=== PATIENT | male | born 2000 | race Caucasian/White ===

== ENCOUNTER 2024-06-08 06:33 | Outpatient (OUT) | payer BC, SELFPAY ==
[2024-06-08 07:04] LABS: Basophils Absolute Auto 0.1 10^3/uL (0.0-0.1); Basophils Percent Auto 1.2 % (0.2-2.0); Eosinophils Absolute Auto 0.2 10^3/uL (0.0-0.7); Eosinophils Percent Auto 3.1 % (0.9-7.0); Hematocrit 45.3 % (42.0-54.0); Hemoglobin 14.6 g/dL (14.0-18.0); Immature Granulocytes Abs Auto 0.02 10^3/uL (0.00-0.03); Immature Granulocytes Pct Auto 0.3 % (0.0-0.5); Lymphocytes Absolute Auto 2.3 10^3/uL (1.2-3.8); Lymphocytes Percent Auto 32.3 % (20.5-60.0); Mean Corpuscular HGB Conc 32.2 g/dL (29.9-35.2); Mean Corpuscular Volume 89.9 fL (80.0-94.0); Monocytes Absolute Auto 0.4 10^3/uL (0.3-0.8); Monocytes Percent Auto 6.1 % (1.7-12.0); Neutrophils Absolute Auto 4.1 10^3/uL (1.4-6.5); Platelet Count 355 10^3/uL (150-450); Red Blood Count 5.04 10^6/uL (4.70-6.10); White Blood Count 7.2 10^3/uL (4.0-11.0)
[2024-06-08 10:05] LABS: Sodium 138 mmol/L (136-145)
[2024-06-08 10:06] LABS: Alanine Aminotransferase 46 U/L (16-63); Anion Gap 13.5; Aspartate Amino Transferase 27 U/L (15-37); BUN Creatinine Ratio 17.2; Bilirubin Total 0.5 mg/dL (0.2-1.0); Calcium 9.3 mg/dL (8.5-10.1); Carbon Dioxide 28.7 mmol/L (21.0-32.0); Chloride 100 mmol/L (98-107); Estimated GFR (African America >60 (>=60); Estimated GFR (Non-African Ame >60 (>=60); Glucose 121 mg/dL (74-106); Potassium 4.2 mmol/L (3.5-5.1)
[2024-06-08 10:07] LABS: Albumin Globulin Ratio 0.9; Albumin Level 3.6 g/dL (3.4-5.0); Alkaline Phosphatase 86 U/L (46-116); Cholesterol 147 mg/dL (<=200); Globulin 4.1 g/dL; HDL Cholesterol 38 mg/dL (40-60); Total Protein 7.7 g/dL (6.4-8.2); Triglycerides 215 mg/dL (<=150)
[2024-06-08 10:08] LABS: Chol HDL Ratio 3.9; Thyroid Stimulating Hormone 3.486 uIU/mL (0.358-3.740)
[2024-06-08 11:06] LABS: Estimated Average Glucose 128 mg/dL; Glycohemoglobin A1C 6.1 % (4.5-6.2)
== END 2024-06-08 06:34 | disposition home or self-care (01) ==
LOC: LAB 06:33
PROVIDERS: Family Provider Internal Medicine; PCP Internal Medicine; Visit Provider Internal Medicine
DX: Z00.00 Encounter for general adult medical examination without abnormal findings (principal)
CPT/HCPCS: 36415; 80053; 80061; 83036; 84443; 85025

== ENCOUNTER 2024-07-04 13:30 | Outpatient (OUT) | payer BC, SELFPAY ==
--- OUTSIDE RECORDS SUMMARY | 2024-07-04 13:40 | XMS_ITS | CCD ---
Author Organization [facility] CliniSyla Care Team Providers Care Dish Network Installer Name Role Phone Enzo Vasques Unavailable Unavailable Unavailable [place]IRGIN[place], DR GIRALDO Admitting Unavailable BALL, DR GIRALDO Attending Unavailable BALL, DR GIRALDO Primary Care Unavailable BALL, DR GIRALDO Consulting Unavailable ZIEBER, DR ANTONIO Bailey Consulting Unavailable BALL, DR GIRALDO Admitting Unavailable BALL, DR GIRALDO Attending Unavailable BALL, DR GIRALDO Primary Care Unavailable BALL, DR GIRALDO Admitting Unavailable BALL, DR GIRALDO Attending Unavailable BALL, DR GIRALDO Primary Care Unavailable MISC, DR QUINTANA Admitting Unavailable MISC, DR QUINTANA Attending Unavailable BALL, DR GIRALDO Primary Care Unavailable BALL, DR GIRALDO Consulting Unavailable MISC, DR QUINTANA Consulting Unavailable ZIEBER, DR ANTONIO Bailey Consulting Unavailable BALL, DR GIRALDO Admitting Unavailable BALL, DR GIRALDO Attending Unavailable BALL, DR GIRALDO Primary Care Unavailable BALL, DR GIRALDO Consulting Unavailable ZIEBER, DR ANTONIO Bailey Consulting Unavailable Ball, Enzo Unavailable Dr. Dominick Barbosa Attending Dolly vailable Ball, Dr. Enzo Diallo Primary Care Stephy Barbosa, Dr. Dominick Talavera Attending Dolly vailable Familia, Dr. Dominick Talavera Referring Dolly vailable Virginia, Dr. Enzo Diallo Primary Care Dollyvai labfred Barbosa, Dr. Dominick Talavera Attending Dolly vailable Jeferson Banks, Dr. Yolette Nichols Referring U navailable Virginia, Dr. Enzo Diallo Primary Care Dollyvai labfred Vasques, Dr. Enzo Diallo Primary Care Stephy Barbosa, Dr. Dominick Talavera Attending Dolly vailable Familia, Dr. Dominick Talavera Referring Dolly vailable Familia, Dr. Dominick Talavera Referring Dolly vailable Virginia, Dr. Enzo Diallo Primary Care Stephy Barbosa, Dr. Dominick Talavera Attending Dolly vailable Familia, Dr. Dominick Talavera Attending Dolly vailable Familia, Dr. Dominick Talavera Referring Dolly Vasques, Dr. Enzo Diallo Primary Care Stephy Barbosa, Dr. Dominick Talavera Attending Dolly Barbosa, Dr. Dominick Talavera Admitting Dolly Barbosa, Dr. Dominick Talavera Referring Dolly Vasques, Dr. Enzo Diallo Primary Care Tejginna christofer Vasques DO, Enzo Diallo Primary Care Provider U oksanaaildinah [place] SHER, Enzo Diallo Primary Care Provider Enzo Vasques DO Primary Care Provider Meeson CHEMICAL PATHOLOGIST-MANAGER ROOFING, Cristiana A Unavailable DOMINICK BARBOSA Attending ENZO Pereira Primary Care Unavailable DOMINICK BARBOSA Attending Unavailable ENZO VASQUES Primary Care Unavailable Allergies Allergy Classification Reported Allergen(s) Allergy Type Date of Onset Reaction(s) Facility (8 sources) bee pollen Allergy to substance (finding) -Otolaryngolog -[facility] Work Phone: (1 source) patient allergy list reviewed by nurse or physicia Propensity to adverse reactions 6 Comment:Done Team [facility] Other Medications Current Medications Medication Drug Class(es) Dates Sig (Normalized) Sig (Original) amoxicillin 875 mg / clavulanate 125 mg oral tablet (11 sources) Penicillin-class Antibacterial Start: 01-05-2023 take 1 tablet by mouth every twelve hours Amoxicillin-Pot Clavulanate 875-125 MG 1 tablet Orally every 12 hrs for 7 days Oct, Active Start: 11-26-2021 End: 03-18-2023 take 1 tablet by mouth twice daily Amoxicillin-Pot Clavulanate 875-125 MG Oral Tablet TAKE 1 TABLET TWICE DAILY UNTIL FINISHED. Quantity: 20 Refills: 0 Ordered: 12-Nov-2022 Dominick Barbosa MD Start : 12-Nov-2022 End : 18-Mar-2023 Complete mometasone furoate, bulk, 100 % powder (2 sources) Start: 09-03-2023 mometasone fur oate, bulk, 100 % powder Indications: Other chronic sinusitis Compound 2 mg capsule to be added to sinus rinse twice daily. 180 g 3 09/03/2023 Active nabumetone 750 mg oral tablet (6 sources) Nonsteroidal Anti-inflammatory Drug Start: 06-03-2024 take 750 mg by mouth twice daily Nabumetone Active 750 MG PO Twice daily June 03, 2024 12:00am Start: 06-24-2022 take 1 tablet by edelmira th twice daily at mealtime Nabumetone 750 MG Oral Tablet TAKE 1 TABLET BY MOUTH TWICE A DAY WITH FOOD Quantity: 30 Refills: 0 Ordered: 24-Jun-2022 DO Start : 24-Jun-2022 Complete Completed/Discontinued Medications Medication Drug Class(es) Dates Sig (Normalized) Sig (Original) Acetaminophen (1 source) Tylenol TABS Quantity: 0 Refills: 0 Ordered: 27-May-2023 DO Active cefdinir 300 mg oral capsule (2 sources) Cephalosporin Antibacterial Start: 08-25-2022 take 1 capsule by mouth twice daily Cefdinir 300 MG Oral Capsule TAKE 1 CAPSULE BY MOUTH TWICE A DAY Quantity: 14 Refills: 0 Ordered: 25-Aug-2022 DO Start : 25-Aug-2022 Complete predniSONE 20 mg oral tablet (2 sources) Start: 02-18-2022 predniSONE 20 MG Oral Tablet TAKE 1 TAB THREE TIMES DAILY W/ FOOD X 3 DAYS THEN TWICE A DAY W/ FOOD X 2 DAYS THEN W/ FOOD X 3 DAY Quantity: 18 Refills: 0 Ordered: 18-Feb-2022 DO Start : 18-Feb-2022 Complete sodium chloride 0.111 meq/ml nasal solution (3 sources) Start: 05-15-2023 take 5 spray(s) nasal route four times daily SB Saline Nose 0.65 % Nasal Solution 5 sprays each nostril four times per day Quantity: 1 Refills: 2 Ordered: 15-May-2023 Dominick Barbosa MD Start : 15-May-2023 Active tiZANidine 2 mg oral tablet (2 sources) Central alpha-2 Adrenergic Agonist Start: 06-24-2022 take 1 tablet by mouth once daily at bedtime tiZANidine HCl - 2 MG Oral Tablet TAKE 1 TABLET BY MOUTH EVERYDAY AT BEDTIME Quantity: 15 Refills: 0 Ordered: 24-Jun-2022 DO Start : 24-Jun-2022 Complete traMADol hydrochloride 50 mg oral tablet (2 sources) Opioid Agonist Start: 05-15-2023 take 1 tablet by mouth three times daily as needed traMADol HCl - 50 MG Oral Tablet TAKE 1 TABLET 3 TIMES DAILY NEEDED. Quantity: 25 Refills: 0 Ordered: 15-May-2023 Dominick Barbosa MD Start : 15-May-2023 Active Problems Active Problems Problem Classification Problem Date Documented Date Episodic/Chronic Asthma (3 sources) Asthma without status asthmaticus; Translations: [Asthma, unspecified, unspecified status] Onset: 06-17-2013 Chronic Immunizations and screening for infectious disease (1 source) Contact with and (suspected) exposure to other viral communicable diseases; Translations: [Contact with and (suspected) exposure to COVID-19] Episodic Other and unspecified benign neoplasm (11 sources) Benign neoplasm of nasal cavity; Translations: [Benign neoplasm of nasal cavities, middle ear, and accessory sinuses] Episodic Other and unspecified benign neoplasm (9 sources) Benign neoplasm of middle ear, nasal cavity and accessory sinuses; Translations: [BENIGN DANAE MED EAR NASAL ACC SINUS] Onset: 11-19-2022 Episodic Other and unspecified benign neoplasm (1 source) Benign neoplasm of nose, middle ear and accessory sinuses; Translations: [Benign neoplasm of middle ear, nasal cavity and accessory sinuses] 05-15-2023 Episodic Other circulatory disease (1 source) Elevated blood-pressure reading without diagnosis of hypertension; Translations: [Elevated blood-pressure reading, without diagnosis of hypertension] 06-03-2024 Episodic Other circulatory disease (1 source) Elevated blood-pressure reading, without diagnosis of hypertension; Translations: [Elevated blood pressure reading without diagnosis of hypertension] 06-03-2024 Episodic Other lower respiratory disease (8 sources) H/O: asthma; Translations: [Personal history of other diseases of respiratory system] Episodic Other nervous system disorders (16 sources) H/O: respiratory disease; Translations: [Personal history of other specified diseases] Episodic Other nervous system disorders (3 sources) Postoperative pain ; Translations: [Other acute postoperative pain] Episodic Other nutritional; endocrine; and metabolic disorders (2 sources) Morbid (severe) obesity due to excess calories; Translations: [Morbid (severe) obesity due to excess calories] Onset: 05-12-2023 Chronic Other nutritional; endocrine; and metabolic disorders (2 sources) Body mass index (BMI) 50.0-59.9, adult; Translations: [Body mass index [BMI] 50.0-59.9, adult] Onset: 05-12-2023 Chronic Other nutritional; endocrine; and metabolic disorders (2 sources) Body mass index 40+ - severely obese; Translations: [Body mass index (BMI) 50.0-59.9, adult] Onset: 05-08-2016 Chronic Other nutritional; endocrine; and metabolic disorders (2 sources) Obesity; Translations: [Obesity, unspecified] Onset: 06-17-2013 06-03-2024 Chronic Other nutritional; endocrine; and metabolic disorders (1 source) Morbid obesity; Translations: [Morbid (severe) obesity due to excess calories] Chronic Other nutritional; endocrine; and metabolic disorders (1 source) Obesity, unspecified; Translations: [Obesity, unspecified] 06-03-2024 Chronic Other upper respiratory disease (8 sources) Seasonal allergy; Translations: [Allergic rhinitis, cause unspecified] Chronic Other upper respiratory disease (1 source) Seasonal allergic rhinitis; Translations: [Other seasonal allergic rhinitis] Onset: 03-23-2019 Chronic Other upper respiratory disease (1 source) Allergic rhinitis; Translations: [Allergic rhinitis, unspecified] Onset: 08-09-2015 Chronic Other upper respiratory disease (1 source) Allergic rhinitis due to pollen; Translations: [Allergic rhinitis due to pollen] Chronic Other upper respiratory disease (7 sources) Nasal congestion; Translations: [Other disease of nasal cavity and sinuses] Episodic Other upper respiratory disease (2 sources) Polyp of nasal cavity; Translations: [Polyp of nasal cavity] Onset: 05-13-2019 Episodic Other upper respiratory infections (20 sources) Chronic ethmoidal sinusitis; Translations: [Chronic ethmoidal sinusitis] Onset: 05-15-2023 Chronic Other upper respiratory infections (5 sources) Acute maxillary sinusitis, unspecified; Translations: [Acute pharyngitis] Onset: 11-06-2015 Episodic Residual codes; unclassified (1 source) Obstructive sleep apnea (adult) (pediatric); Translations: [Obstructive sleep apnea (adult) (pediatric)] Onset: 05-12-2023 Chronic Spondylosis; intervertebral disc disorders; other back problems (3 sources) Other intervertebral disc degeneration, lumbosacral region; Translations: [Disorder of lumbar disc] Onset: 03-05-2022 06-03-2024 Chronic Spondylosis; intervertebral disc disorders; other back problems (19 sources) Radiculopathy, lumbar region; Translations: [Intervertebral disc disorders with radiculopathy, lumbar region] Onset: 02-18-2022 Episodic Past or Other Problems Problem Classification Problem Date Documented Da te Episodic/Chronic Abdominal pain (1 source) Abdominal pain; Translations: [Unspecified abdominal pain] Onset: 10-23-2015 Episodic Bacterial infection; unspecified site (1 source) Bacterial infectious disease; Translations: [Bacterial infection, unspecified, in conditions classified elsewhere and of unspecified site] Onset: 04-26-2018 Episodic Other acquired deformities (1 source) Other specified deforming dorsopathies, lumbar region; Translations: [OTH DEFORMING DORSOPATHIES LUMB RGN] Onset: 03-05-2022 Episodic Other and unspecified benign neoplasm (1 source) Benign neoplasm of skin of face; Translations: [Other benign neoplasm of skin of other parts of face] Onset: 10-05-2018 Episodic Other connective tissue disease (1 source) Abnormal posture; Translations: [ABNORMAL POSTURE] Onset: 03-25-2022 Episodic Unclassified (2 sources) Onset: 09-02-2023 09-02-2023 Viral infection (1 source) COVID-19 Results Test Name Value Interpretation Reference Range Facility SURGICAL PATHOLOGY RESULTSon 06-04-2023 Pathology Report Name WALE GREY Pathologist: LUBA JEFFERS DMD. Date of Procedure: 05/15/2023 Date Received: 05/15/2023 Date Reported 06/04/2023 Submitting Physician: DOMINICK BARBOSA MD Location: [facility] Copy To/Referring/Attending: DOMINICK BARBOSA MD Other External # FINAL DIAGNOSIS A. 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 B. 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 at Electronically Signed Out By LUBA JEFFERS DMD./AMT By the signature on this report, the individual or group listed as making the Final Interpretation/Diagnosis certifies that they have reviewed this case. Diagnostic interpretation performed at [facility] [address] [facility]. [facility] [address] Clinical History: Physician Contact Number: [id number] Fixative (A): Saline Fixative (B): Saline Clinical Diagnosis History RIGHT SINONASAL PAPILLOMA Specimens Submitted As: A: RIGHT SINUS CONTENT B: MICRODEBRIDER CONTENTS Gross Description: A: Received in formalin, labeled with the patient's name and hospital number and A, right sinus contents , are multiple, irregular segments of blood, cartilage and soft tissue aggregating to 5.1 x 2.0 x 1.1 cm. The larger fragments are sectioned. The specimen is entirely submitted in 7 cassettes. [facility] B: Received in formalin, labeled with the patient's name and hospital number and B, microdebrider contents , are multiple, irregular segments of blood and soft tissue aggregating to 5.4 x 3.7 x 1.5 cm. Certified Dental Assistant sections are submitted in 8 cassettes [facility] Note: Per the pathologist, the rest of specimen B is submitted in toto in 17 additional cassettes. 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 Please feel free to contact my office by calling [phone] with any questions. Provider Impressions 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 Nasal airway obstruction 3. Throat clearing, coughing, dysphonia 4. Asthma 5. Obstructive sleep apnea on positive pressure 6. Deviated nasal septum Discussion: Wale appeared well on examination today. I asked him to continue using saline rinses and follow-up with me in about 3 to 4 months. He was amenable to this and all questions were answered. His pathology is pending. Although we know his diagnosis, we are looking for is high-grade dysplasia or malignancy. I will reach out to him when his pathology is available. All questions were answered. Chief Complaint 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 Nasal airway obstruction 3. Throat clearing, coughing, dysphonia 4. Asthma 5. Obstructive sleep apnea on positive pressure 6. Deviated nasal septum History of Present Illness Wale presents for his second postoperative evaluation. He is rinsing his nose several times per day. He has been producing intermittent debris. He denies significant nasal bleeding or nasal drainage. His pain has been minimal. 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) Nasal congestion (478.19) (R09.81) Post-operative pain (338.18) (G89.18) Past Medical History History of asthma (V12.69) (Z87.09) History of sleep apnea (V13.89) (Z86.69) History of snoring (V15.89) (Z87.898) History of Seasonal allergies (477.9) (J30.2) Surgical History History of Sinus surgery Family History Family history of Thyroid trouble Family history of diabetes mellitus (V18.0) (Z83.3) Family history of Heart trouble Family history of Anxiety Social History Never a smoker Single Student Allergies No Known Drug Allergies Recorded By: Gina Jean-Baptiste; 09/21/2019 9:13:55 AM Pollen Recorded By: Gina Jean-Baptiste; 09/21/2019 9:13:55 AM Current Meds Medication NameInstruction SB Saline Nose 0.65 % Nasal Solution5 sprays each nostril four times per day Tylenol TABS Physical Exam Nose: On external exam there are neither lesions nor asymmetry of the nasal tip/dorsum. On anterior rhinoscopy, visualization posteriorly is limited on anterior examination. For this reason, to adequately evaluate posteriorly for masses, source of epistaxis, polypoid disease, debridement, and/or signs of infections, nasal endoscopy is indicated. (Please see procedure below.) SINONASAL ENDOSCOPY (CPT 92756): To better evaluate the patient's symptoms, sinonasal endoscopy is indicated. After discussion of risks and benefits, and topical decongestion and anesthesia, an endoscope was used to perform nasal endoscopy on each side. A time out identifying the patient, the procedure, the location of the procedure and any concerns was performed prior to beginning the procedure. Findings: Examination of the right nasal cavity revealed some crusting and scabbing within the nasal cavity itself that was removed with an alligator and suction. The maxillary, ethmoid, sphenoid, and frontal were all patent. There was expected adherent crusting along the ethmoid skull base within the posterior ethmoid cavity and the floor and lateral aspect of the right sphenoid. No pus or polyps was noted. Results/Data His pathology is pending. 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 Please feel free to contact my office by calling [phone] with any questions. Provider Impressions 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 Nasal airway obstruction 3. Throat clearing, coughing, dysphonia 4. Asthma 5. Obstructive sleep apnea on positive pressure 6. Deviated nasal septum Discussion: Wale appeared well on examination today. I asked him to continue using saline rinses and follow-up with me in about 3 to 4 months. He was amenable to this and all questions were answered. His pathology is pending. Although we know his diagnosis, we are looking for is high-grade dysplasia or malignancy. I will reach out to him when his pathology is available. All questions were answered. Chief Complaint 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 Nasal airway obstruction 3. Throat clearing, coughing, dysphonia 4. Asthma 5. Obstructive sleep apnea on positive pressure 6. Deviated nasal septum History of Present Illness Wale presents for his second postoperative evaluation. He is rinsing his nose several times per day. He has been producing intermittent debris. He denies significant nasal bleeding or nasal drainage. His pain has been minimal. 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) Nasal congestion (478.19) (R09.81) Post-operative pain (338.18) (G89.18) Past Medical History History of asthma (V12.69) (Z87.09) History of sleep apnea (V13.89) (Z86.69) History of snoring (V15.89) (Z87.898) History of Seasonal allergies (477.9) (J30.2) Surgical History History of Sinus surgery Family History Family history of Thyroid trouble Family history of diabetes mellitus (V18.0) (Z83.3) Family history of Heart trouble Family history of Anxiety Social History Never a smoker Single Student Allergies No Known Drug Allergies Recorded By: Gina Jean-Baptiste; 09/21/2019 9:13:55 AM Pollen Recorded By: Gina Jean-Baptiste; 09/21/2019 9:13:55 AM Current Meds Medication NameInstruction SB Saline Nose 0.65 % Nasal Solution5 sprays each nostril four times per day Tylenol TABS Vitals Vital Signs Recorded: [id number] 07:57AM Height6 ft [id number] lb 8 oz BMI Zahjgmkyos29.81 kg/m2 BSA Calculated2.89 Tobacco Useb) No Falls Screening (Age 18+)a) No falls within the last year Pain Scale0/10 Physical Exam Nose: On external exam there are neither lesions nor asymmetry of the nasal tip/dorsum. On anterior rhinoscopy, visualization posteriorly is limited on anterior examination. For this reason, to adequately evaluate posteriorly for masses, source of epistaxis, polypoid disease, debridement, and/or signs of infections, nasal endoscopy is indicated. (Please see procedure below.) SINONASAL ENDOSCOPY (CPT 98086): To better evaluate the patient's symptoms, sinonasal endoscopy is indicated. After discussion of risks and benefits, and topical decongestion and anesthesia, an endoscope was used to perform nasal endoscopy on each side. A time out identifying the patient, the procedure, the location of the procedure and any concerns was performed prior to beginning the procedure. Findings: Examination of the right nasal cavity revealed some crusting and scabbing within the nasal cavity itself that was removed with an alligator and suction. The maxillary, ethmoid, sphenoid, and frontal were all patent. There was expected adherent crusting along the ethmoid skull base within the posterior ethmoid cavity and the floor and lateral aspect of the right sphenoid. No pus or polyps was noted. Results/Data His pathology is pending. 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 Please feel free to contact my office by calling [phone] with any questions. Provider Impressions 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 Nasal airway obstruction 3. Throat clearing, coughing, dysphonia 4. Asthma 5. Obstructive sleep apnea on positive pressure 6. Deviated nasal septum Discussion: Wale appeared very well on examination today. I asked him to continue using rinses regularly and follow-up with me in 1 week. He is returning to work next week and we may need to modify the time of his clinic visit so I asked him to reach out to my litigation legal secretary and we discussed some time parameters today. All questions were answered. Chief Complaint 1. 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 Nasal airway obstruction 3. Throat clearing, coughing, dysphonia 4. Asthma 5. Obstructive sleep apnea on positive pressure 6. Deviated nasal septum History of Present Illness Wale presents for his first postoperative visit following right-sided sinus surgery in 05/15/23. Following his surgery he has done well. He has been having some headaches that are controlled with Tylenol. His breathing has been significantly improved. He is rinsing several times per day. He denies significant nasal drainage. 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) Nasal congestion (478.19) (R09.81) Post-operative pain (338.18) (G89.18) Past Medical History History of asthma (V12.69) (Z87.09) History of sleep apnea (V13.89) (Z86.69) History of snoring (V15.89) (Z87.898) History of Seasonal allergies (477.9) (J30.2) Surgical History History of Sinus surgery Family History Family history of Thyroid trouble Family history of diabetes mellitus (V18.0) (Z83.3) Family history of Heart trouble Family history of Anxiety Social History Never a smoker Single Student Allergies No Known Drug Allergies Recorded By: Gina Jean-Baptiste; 09/21/2019 9:13:55 AM Pollen Recorded By: Gina Jean-Baptiste; 09/21/2019 9:13:55 AM Current Meds Medication NameInstruction SB Saline Nose 0.65 % Nasal Solution5 sprays each nostril four times per day traMADol HCl - 50 MG Oral TabletTAKE 1 TABLET 3 TIMES DAILY NEEDED. Vitals Vital Signs Recorded: [id number] 12:20PM Height6 ft Yszjsd344 lb 3.2 oz BMI Dpynrbjcbz85.31 kg/m2 BSA Calculated2.91 Tobacco Useb) No PHQ-2 #1. Over the last 2 weeks have you felt down, depressed or hopeless? (If yes, answer PHQ-9 below)No PHQ-2 #2. Over the last 2 weeks have you felt little interest or pleasure in doing things? (If yes, answer PHQ-9 below)No Falls Screening (Age 18+)a) No falls within the last year Physical Exam Nose: On external exam there are neither lesions nor asymmetry of the nasal tip/dorsum. On anterior rhinoscopy, visualization posteriorly is limited on anterior examination. For this reason, to adequately evaluate posteriorly for masses, source of epistaxis, polypoid disease, debridement, and/or signs of infections, nasal endoscopy is indicated. (Please see procedure below.) SINONASAL ENDOSCOPY (CPT 66712): To better evaluate the patient's symptoms, sinonasal endoscopy is indicated. After discussion of risks and benefits, and topical decongestion and anesthesia,an endoscope was used to perform nasal endoscopy on each side. A time out identifying the patient, the procedure, the location of the procedure and any concerns was performed prior to beginning the procedure. Discussion: Examination of the right nasal cavity revealed some scabbing and crusting between the septum and the lateral wall that was removed. His maxillary, ethmoid, and sphenoid were all widely patent without significant crusting and formal debridement was not performed. There was no evidence of infection. Procedure This note is prepared by Reina Irvin acting as Dominick Barbosa MD. All medical record entries made by the Scribe were at my direction and personally dictated by me. I have reviewed the chart and agree that the record accurately reflects my personal performance of the history, physical exam, assessment, plan, and diagnosis. I have also personally directed, reviewed, and agree with the discharge instructions. Dominick Barbosa MD. 'Scores and Scales' Signatures Electronically signed by : oDminick Barbosa MD; May 20 2023 1:59PM EST (Author) Normal [facility] Tobacco Screening.on 023 Adult depression screening assessment No [facility] Work Phone: Fall risk assessment a) No falls within the last year -[facility] 4244 Work Phone: Tobacco use status CPHS b) No [facility] 4100 Work Phone: No Panel Informationon 05-15 [facility] 4100 Work Phone: Order Reconciliationon 05-15 Order Reconciliation Page 1 Discharge Reconciliation Document Reconciliation Type: Discharge requested on behalf of Dominick Barbosa (Physician) done by Dominick Barbosa) Discharge - Reconciliation: 15-May-2023 16:08 by: Dominick Barbosa) Discharge - Reset to Incomplete: 15-May-2023 16:16 by: Dominick Barbosa) Discharge - Reconciliation: 15-May-2023 17:02 by: Dominick Barbosa) Home Medications EnteredHOME MEDICATIONS AT DISCHARGE DateReconciliation Comment/ Additional Information nasal rinse 0 prn 12-May-2023 13:23 nasal rinse 0 prn 12-May-2023 13:23 nasal rinse is continued as nasal rinse Tylenol 325 mg oral capsule 1 tab(s) oral prn 12-May-2023 13:24 Tylenol 325 mg oral capsule 1 tab(s) oral prn 12-May-2023 13:24 Tylenol 325 mg oral capsule is continued as Tylenol 325 mg oral capsule Current OrdersDateHOME MEDICATIONS AT DISCHARGE DateReconciliation Comment/ Additional Information Albuterol 2.5 mg/ 3 mL Nebulizer Soln (PROVENTIL)DOSE = 3 mL Inhalation Once via Nebulizer, PRN Wheezing (PACU)Clinician Notes: Giana-operative order ONLY 15-May-2023 11:22 Albuterol 2.5 mg/ 3 mL Nebulizer Soln is not required ceFAZolin 1 gram Vial_IPRO SolutionGive 3 gram(s), IntraVenous, ONCE 15-May-2023 16:08 ceFAZolin 1 gram Vial_IPRO is not required Dexamethasone 10 mg/mL 1 mL Vial PF_IPRO SolutionGive 8 mg, IntraVenous, ONCE 15-May-2023 16:08 Dexamethasone 10 mg/mL 1 mL Vial PF_IPRO is not required FENTANYL 50MCG/1ML 2ML INJ_IPRO SolutionGive 150 microgram(s), IntraVenous, ONCE 15-May-2023 16:08 FENTANYL 50MCG/1ML 2ML INJ_IPRO is not required HYDROmorphone Injectable (DILAUDID)DOSE = 0.2 mg IntraVenous Push Every 5 Minutes, PRN Pain - Mod (4-6) (PACU) if unable to take oralClinician Notes: Giana-operative order ONLYMax total of 4 mg regardless of dose. 15-May-2023 11:22 HYDROmorphone Injectable is not required HYDROmorphone Injectable (DILAUDID)DOSE = 0.4 mg IntraVenous Push Every 5 Minutes, PRN Pain - Severe (7-10) (PACU)Clinician Notes: Giana-operative order ONLYMax total of 4 mg regardless of dose. 15-May-2023 11:22 HYDROmorphone Injectable is not required Labetalol Injectable (TRANDATE)DOSE = 5 mg IntraVenous Push Once, PRN For SBP>180, DBP>100, HR>60Clinician Notes: Giana-operative order ONLY 15-May-2023 11:22 Labetalol Injectable is not required Lactated Ringers Infusion IV Bag Volume = 1,000 mL Run at: 100 mL/hr IntraVenous Clinician Notes: Giana-operative order ONLY 15-May-2023 11:22 Lactated Ringers Infusion is not required LIDOCAINE 2% PF 5ML VIAL_IPRO SolutionGive 100 mg, IntraVenous, ONCE 15-May-2023 16:08 LIDOCAINE 2% PF 5ML VIAL_IPRO is not required Midazolam 1 mg/mL Inj 2 mL_IPRO SolutionGive 2 mg, IntraVenous, ONCE 15-May-2023 16:08 Midazolam 1 mg/mL Inj 2 mL_IPRO is not required Naloxone Injectable (NARCAN)DOSE = 0.2 mg IntraVenous Push Once, PRN If patient RR below 10, obtunded or unarousableClinician Notes: DO NOT ADMINISTER UNTIL PHYSiCIAN HAS BEEN NOTIFIED AND ASSESSED PATIENT 15-May-2023 11:22 Naloxone Injectable is not required Ondansetron 4 mg/2 mL Inj_IPRO SolutionGive 4 mg, IntraVenous, ONCE 11-Aug-2023 16:08 Ondansetron 4 mg/2 mL Inj_IPRO is not required Ondansetron Injectable (ZOFRAN)DOSE = 4 mg IntraVenous Push Once, PRN PONV, first lineClinician Notes: Giana-operative order ONLY 15-May-2023 11:22 Ondansetron Injectable is not required oxyCODONE Immediate Release Tablet (OXYIR, ROXICODONE)DOSE = 10 mg Oral Every 4 Hours, PRN Pain - Severe (7-10) (PACU) when able to take oralClinician Notes: Giana-operative order ONLY 15-May-2023 11:22 oxyCODONE Immediate Release is not required oxyCODONE Immediate Release Tablet (OXYIR, ROXICODONE)DOSE = 5 mg Oral Every 4 Hours, PRN Pain - Mod (4-6) (PACU) when able to take OralClinician Notes: Giana-operative order ONLY 15-May-2023 11:22 oxyCODONE Immediate Release is not required Promethazine IV Piggy Back in Sodium Chloride 0.9% 50 mL (PHENERGAN)DOSE = 6.25 mg Once, PRN persistent PONV if first line ineffectiveRecommended Infusion Time: 15 minute(s)Clinician Notes: Giana-operative order ONLY 15-May-2023 11:22 Promethazine IV Piggy Back is not required PROPOFOL 10MG/1ML 20ML VIAL_IPRO SolutionGive 180 mg, IntraVenous, ONCE 15-May-2023 16:08 PROPOFOL 10MG/1ML 20ML VIAL_IPRO is not required Rocuronium 10 mg/mL Inj 10 mL Vial_IPRO SolutionGive 140 mg, IntraVenous, ONCE 15-May-2023 16:08 Rocuronium 10 mg/mL Inj 10 mL Vial_IPRO is not required Succinylcholine 100 mg/5 mL Syr_IPRO SolutionGive 200 mg, IntraVenous, ONCE 15-May-2023 16:08 Succinylcholine 100 mg/5 mL Syr_IPRO is not required Sugammadex 100 mg/mL 2 mL Vial_IPRO SolutionGive 400 mg, IntraVenous, ONCE 15-May-2023 16:08 Sugammadex 100 mg/mL 2 mL Vial_IPRO is not required Home Medications Added During Discharge Reconciliation Activity as Tolerated 15-May-2023, Routine, Assistance Level: (more content not included)... Normal [facility]3] Patient Profile - Preop v3on 05-15-2023 Patient Profile - Preop v3 Patient Profile - Preop: Initial Info: Patient DemographicsName: WALE GREY Date: 2000 Address: [address] [place] [place] [address] [place] [address] Primary Phone [phone] How to be AddressedDylan Spoken Language PreferredEnglish Stated Reason for Admissioninverted papilloma Primary Contact Name and NumberLenoly, mom [phone] Limitations on Visitors/Phone Callsnone Medications Brought to Hospitalno General Health: Weight in kg185.1 kilogram(s) Weight in aij147 pound(s) Height in feet5 feet Height in .97 inch(es) Height in cm182.8 centimeter(s) BMI (kg/m2)55.392 square meter Patient or Family Member Reaction to Anesthesiano previous reaction Blood Avoidance/Restrictionsnon e Previous Transfusion Reactionno Health Mgmt: Symptoms/Conditions Managed at Homerespiratory Respiratory Symptoms/Conditionssleep disordered breathing Barriers to Managing Healthnone Relationship/Environ: Lives Withparent(s) Living Arrangementshouse Living Environment Commentsmom Resource/Environmental Concernsnone Anticipated Transition Tonags head Services Anticipated at Transitionnone Tobacco Use: Tobacco Useno Additional Information: Information Review: Allergies, Home Meds and Significant Events have been Reviewed and Verified with Patient/Familyyes Allergy, Intolerance, Adverse Event: Allergies: No Known Allergies: Active Significant Events: 15-May-2023 sleep apnea: Past Medical History, Active Electronic Signatures: Ginny Cohen (ARELIS) (Signed 15-May-2023 11:21) Authored: Initial Info, General Health, Health Mgmt, Relationship/Environ, Tobacco Use, Additional Information Last Updated: 15-May-2023 11:21 by Ginny Cohen (ARELIS) Normal [facility] Surgical Pathology Depar tmenton 05-15-2023 [facility] Surgical Pathology Department Name WALE GREY Pathologist: LUBA JEFFERS DMD. Date of Procedure: 05/15/2023 Date Received: 05/15/2023 Date Reported 06/04/2023 Submitting Physician: DOMINICK BARBOSA MD Location: [facility] Copy To/Referring/Attending: DOMINICK BARBOSA MD Other External # FINAL DIAGNOSIS A. 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 B. 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 at Electronically Signed Out By LUBA JEFFERS DMD./SLY By the signature on this report, the individual or group listed as making the Final Interpretation/Diagnosis certifies that they have reviewed this case. Diagnostic interpretation performed at [place] [address] Clinical History: Physician Contact Number: [phone] Fixative (A): Saline Fixative (B): Saline Clinical Diagnosis History RIGHT SINONASAL PAPILLOMA Specimens Submitted As: A: RIGHT SINUS CONTENT B: MICRODEBRIDER CONTENTS Gross Description: A: Received in formalin, labeled with the patient's name and hospital number and A, right sinus contents , are multiple, irregular segments of blood, cartilage and soft tissue aggregating to 5.1 x 2.0 x 1.1 cm. The larger fragments are sectioned. The specimen is entirely submitted in 7 cassettes. [facility] B: Received in formalin, labeled with the patient's name and hospital number and B, microdebrider contents , are multiple, irregular segments of blood and soft tissue aggregating to 5.4 x 3.7 x 1.5 cm. Certified Dental Assistant sections are submitted in 8 cassettes [facility] Note: Per the pathologist, the rest of specimen B is submitted in toto in 17 additional cassettes. [facility]/05/19/2023 [facility] Department of Pathology [id number] [place] [id number] Normal [facility]3] Comment on above: Performed By: #### [facility] #### [facility] Surgical Pathology Department [address] [place] [id number] BASIC METABOLIC PANELon 08-0 Anion gap [Moles/Vol] 16 mmol/L Normal 10 - 20 [facility]3] Comment on above: Performed By: #### B MP #### [address] [address] Calcium [Mass/Vol] 9.8 mg/dL Normal 8.6 - 10.6 [facility] Comment on above: Performed By: #### B MP #### [facility] [address] [place] [address] Chloride [Moles/Vol] 101 mmol/L Normal 98 - 107 [facility]3] Comment on above: Performed By: #### B MP #### [facility] [address] [place] [address] Creatinine [Mass/Vol] 0.81 mg/dL Normal 0.50 - 1.30 [facility])[3] Comment on above: Performed By: #### B MP #### [place] [address] [place] [address] eGFR MALE >90 Normal >90 [facility]3] Comment on above: Result Comment: CALC ULATIONS OF ESTIMATED GFR ARE PERFORMED USING THE 2020 CKD-EPI STUDY REFIT EQUATION WITHOUT THE RACE VARIABLE FOR THE IDMS-TRACEABLE CREATININE METHODS. https://jasn.asnjournals.org/content/early//ASN.93683590 88 Performed By: #### B MP #### [facility] [address] [place] [address] Glucose [Mass/Vol] 81 mg/dL Normal 74 - 99 [facility] Comment on above: Performed By: #### B MP #### [facility] [address] [place] [address] HCO3 (Bld) [Moles/Vol] 27 mmol/L Normal 21 - 32 [facility]3] Comment on above: Performed By: #### B MP #### [facility] [address] [place] [address] Potassium [Moles/Vol] 4.5 mmol/L Normal 3.5 - 5.3 [facility]3] Comment on above: Performed By: #### B MP #### [facility] [address] [place] [address] Sodium [Moles/Vol] 139 mmol/L Normal 136 - 145 [facility] Comment on above: Performed By: #### B MP #### [facility] [address] [place] [address] Urea nitrogen [Mass/Vol] 13 mg/dL Normal 6 - 23 [facility]3] Comment on above: Performed By: #### B MP #### [facility] [address] [place] [address] CBCon 05-12-2023 Erythrocyte distribution width (RBC) [Ratio] 13.0 % Normal 11.5 - 14.5 [facility]3] Comment on above: Performed By: #### C BC #### [facility] [address] [place] [address] Hematocrit (Bld) [Volume fraction] 47.2 % Normal 41.0 - 52.0 [facility]3] Comment on above: Performed By: #### C BC #### [facility] [address] [place] [address] Hemoglobin (Bld) [Mass/Vol] 14.4 g/dL Normal 13.5 - 17.5 [facility]3] Comment on above: Performed By: #### C BC #### [facility] [address] [place] [address] MCHC (RBC) [Mass/Vol] 30.5 g/dL Low 32.0 - 36.0 [facility]3] Comment on above: Performed By: #### C BC #### [facility] [address] [place] [address] MCV (RBC) [Entitic vol] 94 fL Normal 80 - 100 [facility]3] Comment on above: Performed By: #### C BC #### [facility] [address] [place] [address] NUCLEATED RBC 0.0 /100 WBC Normal 0.0-0.0 [facility] Comment on above: Performed By: #### C BC #### [facility] [address] [place] [address] Platelets (Bld) [#/Vol] 400 10*3/uL Normal 150 - 450 [facility]3] Comment on above: Performed By: #### C BC #### [facility] [address] [place] [address] RBC 5.03 x10E12/L Normal 4.50 - 5.90 [facility] Comment on above: Performed By: #### C BC #### [facility] [address] [place] [address] WBC (Bld) [#/Vol] 9.2 10*3/uL Normal 4.4 - 11.3 [facility] Comment on above: Performed By: #### C BC #### [facility] [address] [place] [address] Laboratory - Chemistry and C hemistry - challengeon 05-12-2023 Anion gap [Moles/Vol] 16 mmol/L 10 - 20 MG-Otolaryng ology-[facility] 410 Work Phone: [phone] Calcium [Mass/Vol] 9.8 mg/dL 8.6 - 10.6 MG-[place] laryng ology-[facility] 4100 Work Phone: [phone] Chloride [Moles/Vol] 101 mmol/L 98 - 107 MG-Otolaryng ology-[facility] 4100 Work Phone: [phone] CO2 [Moles/Vol] 27 mmol/L 21 - 32 MG-Otolar yng ology-[facility] 4100 Work Phone: [phone] Creatinine [Mass/Vol] 0.81 mg/dL See Below MG-Otolaryng ology-[facility] 4100 Work Phone: [phone] Comment on above: Reference Range: 0.5 0 - 1.30 Glucose [Mass/Vol] 81 mg/dL 74 - 99 MG-[place] laryng ology-[facility] 4100 Work Phone: [phone] Potassium [Moles/Vol] 4.5 mmol/L 3.5 - 5.3 MG-Otolaryng ology-[facility] 4100 Work Phone: [phone] Sodium [Moles/Vol] 139 mmol/L 136 - 145 [facility]-[place] laryng ology-[facility] 4100 Work Phone: [phone] Urea nitrogen [Mass/Vol] 13 mg/dL 6 - 23 [place] [address] Work Phone: [phone] Laboratory - Hematology and Cell countson 05-12-2023 Erythrocyte distribution width (RBC) [Ratio] 13.0 % See Below [place] [address] Work Phone: [phone] Comment on above: Reference Range: 11. 5 - 14.5 Hematocrit (Bld) [Volume fraction] 47.2 % See Below [place] [address] Work Phone: [phone] Comment on above: Reference Range: 41. 0 - 52.0 Hemoglobin (Bld) [Mass/Vol] 14.4 g/dL See Below [place] [address] Work Phone: [phone] Comment on above: Reference Range: 13. 5 - 17.5 MCHC (RBC) [Mass/Vol] 30.5 g/dL below low threshold See Below [place] [address] Work Phone: [phone] Comment on above: Reference Range: 32. 0 - 36.0 MCV (RBC) [Entitic vol] 94 fL 80 - 100 [place] [address] Work Phone: [phone] Platelets (Bld) [#/Vol] 400 10*3/uL 150 - 450 [place] [address] Work Phone: [phone] RBC (Bld) [#/Vol] 5.03 {x10E12/L} See Below [place] [address] Work Phone: [phone] Comment on above: Reference Range: 4.5 0 - 5.90 WBC (Bld) [#/Vol] 9.2 10*3/uL 4.4 - 11.3 [facility]-[place] laryng ology-[facility] 4100 Work Phone: No Panel Informationon 05-12 >90 >90 MG-Otolaryng ology-[facility] 4100 Work Phone: Comment on above: CALCULATIONS OF AMANDA MATED GFR ARE PERFORMED USING THE 2020 CKD-EPI STUDY REFIT EQUATION WITHOUT THE RACE VARIABLE FOR THE IDMS-TRACEABLE CREATININE METHODS.https://jasn.asnjournals.org/content/early/ASN. 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 Provider Impressions 1. 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 Nasal airway obstruction 3. Throat clearing, coughing, dysphonia 4. Asthma 5. Obstructive sleep apnea on positive pressure 6. Deviated nasal septum Discussion: Wale and I again discussed his papilloma and he was comfortable moving forward with surgical intervention. I will schedule him at his convenience moving forward. His procedure will need to be performed at our main campus as we will need pathological services for frozen section analysis. All questions were answered. Chief Complaint 1. 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 Nasal airway obstruction 3. Throat clearing, coughing, dysphonia 4. Asthma 5. Obstructive sleep apnea on positive pressure 6. Deviated nasal septum History of Present Illness Reason for visit: WALE GREY patient presents since last being seen 01/06/23. Wale presents for routine follow-up. 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) Nasal congestion (478.19) (R09.81) Past Medical History History of asthma (V12.69) (Z87.09) History of sleep apnea (V13.89) (Z86.69) History of snoring (V15.89) (Z87.898) History of Seasonal allergies (477.9) (J30.2) Surgical History History of Sinus surgery Family History Family history of Thyroid trouble Family history of diabetes mellitus (V18.0) (Z83.3) Family history of Heart trouble Family history of Anxiety Social History Never a smoker Single Student Allergies No Known Drug Allergies Recorded By: Gina Jean-Baptiste; 09/21/2019 9:13:55 AM Pollen Recorded By: Gina Jean-Baptiste; 09/21/2019 9:13:55 AM Current Meds Medication NameInstruction Amoxicillin-Pot Clavulanate 875-125 MG Oral TabletTAKE 1 TABLET TWICE DAILY UNTIL FINISHED. Vitals Vital Signs Recorded: [id number] 01:56PM Height6 ft Dgkncz616 lb 9 oz BMI Qstgixknco89.63 kg/m2 BSA Calculated2.91 Tobacco Useb) No PHQ-2 #1. Over the last 2 weeks have you felt down, depressed or hopeless? (If yes, answer PHQ-9 below)No PHQ-2 #2. Over the last 2 weeks have you felt little interest or pleasure in doing things? (If yes, answer PHQ-9 below)No Falls Screening (Age 18+)a) No falls within the last year Pain Scale0/10 Results/Data I personally reviewed his CT sinus from 11/19/22. There was extensive papilloma within the right paranasal sinuses. His right sphenoid seems to have remodeled into the left sphenoid. There were several potential areas of attachment of the papilloma within the sinuses. Procedure This note is prepared by Reina Irvin acting as Dominick Barbosa MD. All medical record entries made by the Scribe were at my direction and personally dictated by me. I have reviewed the chart and agree that the record accurately reflects my personal performance of the history, physical exam, assessment, plan, and diagnosis. I have also personally directed, reviewed, and agree with the discharge instructions. Dominick Barbosa MD. 'Scores and Scales' Signatures Electronically signed by : Dominick Barbosa MD; Mar 29 2023 3:44PM EST (Author) Normal [employer] Tobacco Screening.on 023 Adult depression screening assessment No [employer]tol[facility]La [facility] Work Phone: Fall risk assessment a) No falls within the last year [employer] Work Phone: Tobacco use status CPHS b) No [employer] Work Phone: Established Visit (Otolaryng ology)on 01-06-2023 Established Visit (Otolaryngology) Diagnoses/Problems Chronic ethmoidal sinusitis (473.2) (J32.2) Chronic maxillary sinusitis (473.0) (J32.0) Nasal congestion (478.19) (R09.81) 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 Provider Impressions 1. 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 Nasal airway obstruction 3. Throat clearing, coughing, dysphonia 4. Asthma 5. Obstructive sleep apnea on positive pressure 6. Deviated nasal septum Discussion: Wale and I discussed his inverted papilloma again today. I recommended surgical intervention and we discussed consideration of malignancy with this particular tumor. We spent some time today discussing considerations with this type of pathology and that in some cases I can resect the lesion going through a standard middle meatal antrostomy but there are instances where an endoscopic medial maxillectomy is required to be able to access the anterior aspect of the tumor. If a endoscopic medial maxillectomy were performed the major consideration in terms of morbidity would the epiphora. Additional risks of endoscopic medial maxillectomy would include damage to sensory nerves running around the maxillary sinus notably V2 and resultant cheek numbness or numbness to portions of her hard palate or upper teeth. Additional risks include bleeding, smell loss or alteration, infection, need for nasal packing, double vision, vision loss, CSF leak requiring other procedures to repair, and need for revision surgery. We also discussed persistence of the papilloma and the goal is complete resection of the tumor but I would recommend a number of follow-ups in the postoperative setting to monitor for persistence especially given that he has had surgical intervention for this lesion before and there could be multiple attachment points and in some cases the exact original attachment of the tumor cannot be discerned. We discussed septoplasty itself including the risks, benefits and alternatives including but not limited to the following: Numbness of teeth/and or face, alteration in sense of smell or taste, need for further surgery, inability to correct nasal obstruction, bleeding, pain, infection, anesthetic risk, septal perforation and unexpected complications. At this point in time, he wished to discuss options with his mother so if he wishes to move forward with surgical intervention I asked him to contact my office and we will get him scheduled. His procedure would need to be performed at the main campus of for frozen section analysis purposes. If he wishes to continue to observe I suggested a short-term follow-up in about 2 months. All questions were answered. Chief Complaint An interactive audio and video telecommunication system which permits real time communications between the patient (at the originating site) and provider (at the distant site) was utilized to provide this telehealth service. Verbal consent was requested and obtained from WALE GREY on this date, 01/06/2023 03:30 PM , for a telehealth visit. 1. 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 Nasal airway obstruction 3. Throat clearing, coughing, dysphonia 4. Asthma 5. Obstructive sleep apnea on positive pressure History of Present Illness Wale presents following imaging for review. He mentioned recently being diagnosed with the coronavirus and this has worsened his baseline sinonasal symptoms. He obtained imaging outside the system but I was able to review the report today. We will request his image formally but the report demonstrated a right sided lesion consistent with his previously diagnosed inverted papilloma. 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) Nasal congestion (478.19) (R09.81) Past Medical History History of asthma (V12.69) (Z87.09) History of sleep apnea (V13.89) (Z86.69) History of snoring (V15.89) (Z87.898) History of Seasonal allergies (477.9) (J30.2) Surgical History History of Sinus surgery Family History Family history of Thyroid trouble Family history of diabetes mellitus (V18.0) (Z83.3) Family history of Heart trouble Family history of Anxiety Social History Never a smoker Single Student Allergies No Known Drug Allergies Recorded By: Gina Jean-Baptiste; 09/21/2019 9:13:55 AM Pollen Recorded By: Gina Jean-Baptiste; 09/21/2019 9:13:55 AM Current Meds Medication NameInstruction Amoxicillin-Pot Clavulanate 875-125 MG Oral TabletTAKE 1 TABLET TWICE DAILY UNTIL FINISHED. 'Scores and Scales' Signatures Electronically signed by : Dominick Barbosa MD; Jan 06 2023 7:00PM EST (Author) Normal [facility] CT SINUSES WO CONon 11-20-19 CT SINUSES WO CON EXAMINATION: CT SINU SES WO CON HISTORY: Benign neoplasm of nose, middle ear and accessory sinuses COMPARISON: No relevant comparison available. TECHNIQUE: Axial and Coronal CT images were created without IV contrast. Dose reduction techniques were achieved by using automated exposure control and/or adjustment of mA and/or kV according to patient size and/or use of iterative reconstruction technique. FINDINGS: MAXILLARY SINUSES: Complete opacification of right maxillary sinus with expansion/destruction of ostiomeatal complex. Small mucocele/retention cyst within left maxillary sinus and patent ostiomeatal complex. ETHMOID SINUSES: Complete opacification of the majority of right ethmoid air cells. Left ethmoid air cells are clear. SPHENOID SINUSES: Complete opacification of right and majority of left sinuses. FRONTAL SINUSES: No significant mucosal thickening or fluid. Frontal recesses are patent. NASAL FOSSA: Obstruction of the mid and posterior upper right nasal passageway due to expanding mass. Neither the right upper or middle turbinate is visible. Leftward deviation 2.3 mm involving the upper nasal septum. OTHER: Negative. Limited views of the skull base and orbits are unremarkable. IMPRESSION: 1. Large expanding/infiltrating process involving the right paranasal sinuses and nasal passageway as detailed above. No prior studies for comparison. 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 Please feel free to contact my office by calling [phone] with any questions. Provider Impressions 1. 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 Nasal airway obstruction 3. Throat clearing, coughing, dysphonia 4. Asthma 5. Obstructive sleep apnea on positive pressure Discussion: Wale, his mother, and I discussed his prior pathology, exam, and options moving forward. In regard to the pus that I noted on the left-hand side, I recommended Augmentin and this was prescribed. I recommended discontinuation for any side effects. In regard to the inverted papilloma, we again discussed that I recommend surgical intervention for definitive removal. We discussed considerations with papilloma versus polyp and that complete removal of the inverted papilloma is the standard of care. Depending on the attachment point, he may require an extended approach to the maxillary sinus but if the lesion is originating from the ethmoid cavity or nasal cavity it may be more straightforward to remove. I recommended repeat imaging as it has been a number of years since he underwent a CT. This was ordered today. I recommended follow-up virtually in about 4 to 6 weeks to review this and formulate a definitive plan at that time. He was amenable to this and all questions were answered. Chief Complaint 1. 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 Asthma History of Present Illness Reason for visit: WALE GREY patient presents since last being seen 09/04/20. Main Symptoms: Patient does not have anterior nasal drainage. Patient does not have posterior nasal drainage. Patient has nasal airway obstruction. bilateral. Patient does not have facial pain. Patient does not have facial pressure. Patient does not have decreased sense of smell. Associated Symptoms: Patient does not have headaches. Patient has throat clearing. Patient has coughing. Patient has dysphonia. Patient does not have nasal bleeding. Medications currently on for sinonasal symptoms Flonase/Fluticasone - PRN (as needed) . Other Pertinent Medical Conditions: Patient has asthma. Patient does not have aspirin sensitivity. The patient has not had imaging of sinuses. Wale presents today since last being seen in 2019. At that time, I recommended definitive surgical intervention for the inverted papilloma and imaging was ordered to start this process. More recently, he was seen by Dr. Govea in regard to his sleep apnea and Dr. Govea recommended that he return to see me for repeat assessment of the papilloma. He is using Flonase as needed and at baseline is doing very well outside of some nasal breathing issues. 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) Past Medical History History of asthma (V12.69) (Z87.09) History of sleep apnea (V13.89) (Z86.69) History of snoring (V15.89) (Z87.898) History of Seasonal allergies (477.9) (J30.2) Surgical History History of Sinus surgery Family History Family history of Thyroid trouble Family history of diabetes mellitus (V18.0) (Z83.3) Family history of Heart trouble Family history of Anxiety Social History Never a smoker Single Student Allergies No Known Drug Allergies Recorded By: Gina Jean-Baptiste; 09/21/2019 9:13:55 AM Pollen Recorded By: Gina Jean-Baptiste; 09/21/2019 9:13:55 AM Current Meds Medication NameInstruction No Reported Medications Vitals Vital Signs Recorded: [id number] 04:13PM Height6 ft Ioisnv705 lb 8 oz BMI Dlfnmumqoo56.89 kg/m2 BSA Calculated2.92 Tobacco Useb) No PHQ-2 #1. Over the last 2 weeks have you felt down, depressed or hopeless? (If yes, answer PHQ-9 below)No PHQ-2 #2. Over the last 2 weeks have you felt little interest or pleasure in doing things? (If yes, answer PHQ-9 below)No Falls Screening (Age 18+)a) No falls within the last year Pain Scale0/10 Physical Exam Nose: On external exam there are neither lesions nor asymmetry of the nasal tip/dorsum. On anterior rhinoscopy, visualization posteriorly is limited on anterior examination. For this reason, to adequately evaluate posteriorly for masses, source of epistaxis, polypoid disease, debridement, and/or signs of infections, nasal endoscopy is indicated. (Please see procedure below.) SINONASAL ENDOSCOPY (CPT 17873): To better evaluate the patient's symptoms, sinonasal endoscopy is indicated. After discussion of risks and benefits, and topical decongestion and anesthesia,an endoscope was used to perform (more content not included)... Normal [employer] Tobacco Screening.on 023 Adult depression screening assessment No [employer] Work Phone: Fall risk assessment a) No falls within the last year -Otolaryn [employer] Work Phone: Tobacco use status [facility] b) No [employer] Work Phone: MRI LSPINE WO CONon 07-23-20 22 MRI LSPINE WO CON EXAMINATION: MRI LSP INE WO CON HISTORY: Lumbar radiculopathy ; lumbar pain with bilateral lower extremity pain and weakness COMPARISON: No relevant comparison available. TECHNIQUE: A variety of imaging planes and parameters were utilized for visualization of suspected pathology. FINDINGS: For the purposes of numbering, sagittal T2 image # 10 extends from the T11-T12 vertebral body superiorly to the S3 level inferiorly. PARASPINAL AREA: Normal with no visible mass. BONES: No fracture, pars defect, or osseous lesion. CORD/CAUDA EQUINA: Normal caliber, contour, and signal intensity. DISC LEVELS: 12-L1: Moderate central canal narrowing without significant foramen narrowing. Mild, broad-based right paracentral protrusion and mild diffuse disc bulging. L1-L2: No significant disc/facet abnormality, spinal stenosis, or foraminal stenosis. L2-L3: No significant disc/facet abnormality, spinal stenosis, or foraminal stenosis. L3-L4: Early degenerative disc disease is present without focal protrusion or neural impingement. L4-L5: Mild diffuse disc bulging and small posterior central disc protrusion without disc at reduction or significant central canal/foraminal narrowing. L5-S1: No significant disc/facet abnormality, spinal stenosis, or foraminal stenosis. IMPRESSION: 1. Moderate central canal narrowing at T12-L1 secondary to small-moderate right paracentral disc protrusion which may contribute to patient's symptoms. 2. Mild degenerative disc disease L3-L4, L4-L5 without significant central canal or foraminal stenosis. Electronically authenticated by: ANTONIO WEINSTEIN Date: 2022-07-23 12:04 Normal [facility] XR LSPINE 2_3 VIEWSon 2021 XR LSPINE 2_3 VIEWS EXAMINATION: XR LSPI NE 2_3 VIEWS HISTORY: Lumbago co-occurrent with right-side sciatica COMPARISON: No relevant comparison available. FINDINGS: BONES: Mild left convex curvature lumbar spine; positioning versus muscle spasm. DISC SPACES: Mild narrowing L5-S1. PARASPINOUS: Negative. No paraspinous abnormality is seen. OTHER: Negative. IMPRESSION: 1. L5-S1 mild/moderate degenerative disc disease. 2. Mild levocurvature of the lumbar spine; chronic versus muscle spasm. Electronically authenticated by: ANTONIO WEINSTEIN Date: 2022-02-18 15:30 Normal [facility] Pathology Reporton 0 Pathology Report [id number] Normal [facility] Coding Summary.on 08-31-2019 Coding Summary. CODING DATE: 019 FINAL [facility] STATUS: Home (Routine DC) PAYOR: [facility] [employer] DESCRIPTION 5155 Level 5 Airway Endoscopy ADMIT DX: REASON FOR VISIT DX: J32.4 Chronic pansinusitis FINAL DX: PRINCIPAL: J32.4 Chronic pansinusitis SECONDARY: J34.89 Other specified disorders of nose and nasal sinuses J45.909 Unspecified asthma, uncomplicated G47.30 Sleep apnea, unspecified Z99.89 Dependence on other enabling machines and devices [facility] DES[facility] DOCTOR NAME DATE 28852 5155 J1 Nasal/sinus endoscopyJeferson MD, Hilary H 08/25/2019 surgical with ethmoidectomy; total (anterior and posterior), including sphenoidotomy, with removal of tissue from the sphenoid sinus RT Right side (used to identify procedures performed on the right side of the body) 83394 5155 J1 Nasal/sinus endoscopyJeferson MD, Hilary H 08/25/2019 surgical, with maxillary antrostomy; with removal of tissue from maxillary sinus RT Right side (used to identify procedures performed on the right side of the body) 97483 5155 J1 Nasal/sinus endoscopyJeferson MD, Hilary H 08/25/2019 surgical, with frontal sinus exploration, including removal of tissue from frontal sinus, when performed RT Right side (used to identify procedures performed on the right side of the body) 38735 Anesthesia for Rene BanksLoyd Smith DO 08/25/2019 procedures on nose and accessory sinuses; not otherwise specified NOTE: The code number assigned matches the documented diagnosis and / or procedure in the patient's chart. However, the narrative phrase printed from the coding software may appear abbreviated, or result in slightly different terminology. Revised Coded By: Ngoc Campo Revised Date Saved: 08/31/2019 10:48 am Normal [facility] Main OR Intraoperative Recor don 08-29-2019 Main OR Intraoperative Record IntraOp Document Type FT Summary Primary Physician: Yolette Govea MD Finalized Date/Time: 08/29/19 09:29:47 Pt. Name: WALE GREY/Sex: 2000 Male Med Rec #: [id number] Physician: Yolette Govea MD Financial #: [id number] Pt. Type: A Room/Bed: AS Admit/Disch: 08/25/19 09:16:00 - 08/25/19 15:30:00 Institution: Case Times FT Entry 1 Patient Times In Room 08/25/19 10:37:00 Out Room 08/25/19 13:03:00 Procedure Times Start 08/25/19 11:00:00 Stop 08/25/19 12:54:00 Anesthesia Times Start 08/25/19 10:37:00 Stop 08/25/19 13:03:00 Last Modified By: Melisa Rg CST 08/25/19 13:05:15 General Comments: 08/26/19 Chart opened to review and send charges Kristy Rg CST 08/29/19 Chart opened to review and send charges Kristy Rg CST Case Attendance FT Entry 1 Entry 2 Entry 3 Case Attendee Rene Nava DO, Loyd Govea MD, Yolette Kimball RN, Jomar Morales Role Performed Anesthesiologist of Surgeon - Primary Personal Driver - Primary Record Time In 08/25/19 10:37:00 08/25/19 10:37:00 08/25/19 10:37:00 Time Out 08/25/19 13:03:00 08/25/19 13:03:00 08/25/19 13:03:00 Procedure ANTROSTOMY TURBINECTOMY ANTROSTOMY TURBINECTOMY ANTROSTOMY TURBINECTOMY ETHMOIDECTOMY IM(Right) ETHMOIDECTOMY IM(Right) ETHMOIDECTOMY IM(Right) Comments out of room from [id number]. Last Modified By: Patrick RN, Nelly Nguyen RN, Nelly Robison RN 08/25/19 13:05:43 08/25/19 13:05:43 08/25/19 13:05:43 Entry 4 Entry 5 Entry 6 Case Attendee Patrick INFANTE, Nelly Aguilar TORPEDOMAN'S MATE, Enzo Tijerina CST, Sheba Segovia Role Performed Personal Driver - Primary Scrub - Primary Scrub - Relief Time In 08/25/19 10:37:00 08/25/19 10:37:00 08/25/19 11:40:00 Time Out 08/25/19 13:03:00 08/25/19 13:03:00 08/25/19 12:14:00 Procedure ANTROSTOMY TURBINECTOMY ANTROSTOMY TURBINECTOMY ANTROSTOMY TURBINECTOMY ETHMOIDECTOMY IM(Right) ETHMOIDECTOMY IM(Right) ETHMOIDECTOMY IM(Right) Comments out for lunch at out for lunch at [phone] Last Modified By: Nelly Nguyen RN, RN, Nelly Robison RN 08/25/19 13:05:43 08/25/19 13:05:43 08/25/19 13:05:43 Perioperative Protocols FT Pre-Care Text: Implements protective measures prior to operative or invasive procedure, confirms identity before the operative or invasive procedure, verifies operative procedure, surgical site, and laterality Entry 1 Procedure(s) ANTROSTOMY TURBINECTOMY Patient Identity Birthday, ID Band ETHMOIDECTOMY IM(Right) Verified (select at Check, Patient least 2): Participation Consents / H and P Anesthesia Consent, Operative Site Present Verified HandP, Surgery/Procedure Marking Verified Consent Surgical Site Yes Laterality Verified Yes Verified Procedure Verified Yes Correct Patient Yes Position Verified Availability Equipment, Medication, Prep Dry n/a Verified (If Other/See Comments Applicable) PreOp Antibiotic No Time Out Loyd López Jr., DO, Given Participants Jeferson HUBBARD, Yolette Ureña, Rehana INFANTE, Patrick Staton RN, Jeff Strauss CST, Benjamin Time Out Complete 08/25/19 10:55:00 Outcomes Met? Yes Last Modified By: Nelly Nguyen RN 08/25/19 11:04:53 Post-Care Text: The patient is free from signs and symptoms of injury caused by extraneous objects Allergy Information FT Pre-Care Text: Verifies allergies Entry 1 Allergies Reviewed? Yes Allergies Reviewed Self/Patient With Outcomes Met? Yes Last Modified By: Nelly Nguyen RN 08/25/19 11:04:56 Post-Care Text: The patient received appropriate medication(s) safely administered during the perioperative period Surgical Procedures FT Entry 1 Procedure Description Procedure ANTROSTOMY TURBINECTOMY Modifiers Right ETHMOIDECTOMY IMAGE GUIDED Surgeon Description RIGHT IMAGE GUIDED PANSINUSECTOMY TOTAL ETHMOIDECTOMY FRONTAL SINUSOTOMY MAXILLARY ANTROSTOMY WITH REMOVAL OF TISSUE Primary Procedure Yes Primary Surgeon Yolette Govea MD Start 08/25/19 11:00:00 Stop 08/25/19 12:54:00 Anesthesia Type General Surgical Service ENT Wound Class 2 - Clean-Contaminated Last Modified By: Nelly Nguyen RN 08/25/19 13:02:35 General Case Data FT Pre-Care Text: Classifies surgical wound, implements aseptic technique, initiates traffic control Entry 1 Case Information OR OR 2 FT Case Level Level 3 Wound Class 2 - Clean-Contaminated Specialty ENT ASA Class 2 Preop Diagnosis CHRONIC PANSINUSITIS Postop Same As Preop Yes Postop Diagnosis CHRONIC PANSINUSITIS Outcomes Met? Yes Last Modified By: Nelly Nguyen RN 08/25/19 13:05:51 Post-Care Text: The patient is free from signs and symptoms of infection Skin Assessment (Pre Procedure) FT Pre-Care Text: Implements protective measures to prevent skin/ tissue injury due to thermal or mechanical sources Evaluates for signs and symptoms of physical injury to skin and tissue Entry 1 Skin Integrity Intact, Ragan, Warm, and Skin Abnormality No Dry Outcomes Met? Yes Last Modified By: Nelly Nguyen RN 08/25/19 11:05:04 Post-Care Text: The patient is free from signs and symptoms of injury caused by extraneous objects Patient Positioning FT Pre-Care Text: Identifies physical alterations that require additional precautions for procedure-specific positioning, verifies presence of prosthetics or corrective devices, positions the patient, evaluates the patient for signs and symptoms of injury as a result of positioning Entry 1 Procedure ANTROSTOMY TURBINECTOMY Body Position Supine ETHMOIDECTOMY IM(Right) Feet Uncrossed? Yes Left Arm Position Resting at Side Right Arm Position Tucked and Padded at Left Leg Position Extended Side Right Leg Position Extended Positioning Device Donut Headrest, Safety Strap, Arm Sled Right, Heel Padding Press Points Checked Yes By Rehana INFANTE, Rene Staton Jr., DO, Gary, Farris RN, Karen M Outcomes Met? Yes Last Modified By: Nelly Nguyen RN 08/25/19 11:07:15 Post-Care Text: The patient is free from signs and symptoms of injury related to positioning General Comments: safety strap brittany Durand.ARELIS Nguyen Patient Care Devices FT Pre-Care Text: Implements protective measures to prevent skin/ tissue injury due to thermal or mechanical sources Entry 1 Entry 2 Entry 3 Equipment Type M4 MICRODEBRIDER [F] MEDTRONIC FUSION SYSTEM MISTRAL FORCED AIR [F] WARMING SYSTEM UNIT[F] Equipment Number [id number] Equipment Setting Outcomes Met? Yes Yes Yes Last Modified By: Nelly Nguyen RN, RN, Nelly Robison RN 08/25/19 11:36:50 08/25/19 11:36:50 08/25/19 11:36:50 Entry 4 Entry 5 Entry 6 Equipment Type MONITOR CHARGE SURGERY VIDEO SYSTEM[F] CONSOLE MEDTRONIC IPC [F] [F] Equipment Number Equipment Setting Outcomes Met? Yes Yes Yes Last Modified By: Nelly Nguyen RN, RN, Nelly Robison RN 08/25/19 11:36:50 08/25/19 11:36:50 08/25/19 11:36:50 Entry 7 Equipment Type GLIDESCOPE, INTUBATING[F] Equipment Number Equipment Setting Outcomes Met? Yes Last Modified By: Jomar Kimball RN 08/25/19 12:18:30 Post-Care Text: The patient is free from signs and symptoms of injury caused by extraneous objects Transport To OR FT Pre-Care Text: Transports according to individual needs. Evaluates for signs and symptoms of skin and tissue injury as a result of transfer or transport Entry 1 Via Cart By Jomar Kimball RN Safety Precautions Side Rails Up Outcomes Met? Yes Last Modified By: Nelly Nguyen RN 08/25/19 11:05:13 Post-Care Text: The patient is free from signs and symptoms of injury related to transfer/transport Cautery FT Pre-Care Text: Implements protective measures to prevent injury due to electrical sources, and evaluates for signs and symptoms of electrical injury Entry 1 ESU Identification ESU Settings Cut 0 Coag 25 ESU Grounding Pad Site Left Thigh Hair Removal Pad No Site Pre Pad Site Clear and Intact Post Pad Site Clear and Intact Condition Condition Grounding Pad Jomar Kimball RN Placed By Outcomes Met? Yes Last Modified By: Nelly Nguyen RN 08/25/19 11:05:53 Post-Care Text: The patient if free from signs and symptoms of electrical injury Counts Verification FT Pre-Care Text: Performs required counts Entry 1 Entry 2 Entry 3 Procedure(s) ANTROSTOMY TURBINECTOMY ANTROSTOMY TURBINECTOMY ANTROSTOMY TURBINECTOMY ETHMOIDECTOMY IM(Right) ETHMOIDECTOMY IM(Right) ETHMOIDECTOMY IM(Right) Type Initial Relief Relief Items Sponges, Sharps Sponges, Sharps Sponges, Sharps Status Correct Correct Correct Time 08/25/19 11:42:00 By Rehana INFANTE, Jomar Morales, Breezy TORPEDOMAN'S MATE, Jeff Marcano CST, Jeff Giraldo CST, Enzo Kimball RN, Nelly Horn RN Outcomes Met? Yes Yes Yes Last Modified By: Nelly Nguyen RN, RN, Jomar Fontenot RN 08/25/19 11:10:00 08/25/19 11:46:28 08/25/19 12:17:06 Entry 4 Procedure(s) ANTROSTOMY TURBINECTOMY ETHMOIDECTOMY IM(Right) Type Final Items Sponges, Sharps Status Correct Time By Nelly Nguyen RN, Wilhelm CST, Enzo Outcomes Met? Yes Last Modified By: Nelly Nguyen RN 08/25/19 13:05:41 Post-Care Text: The patient is free from signs and symptoms of injury caused by extraneous objects Departure From OR FT Pre-Care Text: Transports according to individual needs. Evaluates for signs and symptoms of skin and tissue injury as a result of transfer or transport. Entry 1 Via Cart Safety Precautions Side Rails Up PostOp Destination PACU Transported By Loyd López Jr., DO, Krupp RN, Jomar Morales Patient Status Stable Skin. Condition Intact, Ragan, Warm, and Dry Airway Maintenance Oxygen in Use? Yes Airway Device Simple Mask Flow Rate 10 L/min Outcomes Met? Yes Last Modified By: Jomar Kimball RN 08/25/19 11:48:09 Post-Care Text: The patient is free from signs and symptoms of injury related to transfer/transport General Comments: handoff report given to pacu nurse. ARELIS Whelanethanol operator Administration FT Pre-Care Text: Verifies allergies, administers prescribed medications and solutions, administers prescribed antibiotic therapy and immunizing agents as ordered, evaluates response to medications Administers prescribed medications and solutions Entry 1 Expiration Date Yes Outcomes Met? Yes Verified Last Modified By: Nelly Nguyen RN 08/25/19 10:03:51 Post-Care Text: The patient received appropriate medication(s) safely administered during the perioperative period For Wayne-Kulwant please see scanned medication reconcilliation form for medications used at the field during the procedure. Communication FT Pre-Care Text: Maintains patient's dignity and privacy,and maintains patient confidentiality Entry 1 Communication Phone Communication By Jomar Kimball RN Date and Time 08/25/19 12:23:00 Surgery Update family updated of surgery progress by virgen Torres patient navigator. Outcomes Met? Yes Last Modified By: Jomar Kimball RN 08/25/19 12:24:11 Post-Care Text: The patient's right to privacy is maintained Cultures and Specimens FT Pre-Care Text: Manages specimen handling and disposition Manages culture specimen collection Entry 1 Cultures Ordered No Specimens Ordered Yes Specimen Disposition Designated OR Area Frozen Section Times Outcomes Met? Yes Last Modified By: Jomar Kimball RN 08/25/19 11:47:45 Post-Care Text: The patient is free from signs and symptoms of injury caused by extraneous objects The patient is free from signs and symptoms of infection General Comments: specimens; 1. right sinus sock 2. right sinus polyp 3. right sinus contents 4. dinora bullosa soft tissue- right sinus cavity 5. right maxillary sinus soft tissue 6. right sphenoid sinus tissue Temperature Control Entry 1 Temperature Control BLANKET MISTRAL AIR Quantity 1 Aid PLUS LOWER BODY [[id number]][F] Fluid/[place] Unit Mistral warming system Setting high/43 degrees Body Site Lower anterior torso Last Modified By: Nelly Nguyen RN 08/25/19 10:05:52 Case Comments Finalized By: Melisa Rg CST Document Signatures Signed By: Nelly Nguyen RN 08/25/19 13:06 ALEXIS Hines RN, Andrea 08/26/19 11:19 Melisa Rg CST 08/29/19 09:29 Normal [facility] Operative Reporton 11-22-201 9 Operative Report Date of Surgery: 08/25/2019 SURGEON: Yolette Govea Jr., M.D. PRIMARY CARE PHYSICIAN: Enzo Vasques D.O. PREOPERATIVE DIAGNOSIS: Right-sided chronic pansinusitis POSTOPERATIVE DIAGNOSIS: Right-sided chronic pansinusitis OPERATION: Right-sided image-guided microdebrider-assisted total ethmoidectomy, frontal sinus exploration, maxillary antrostomy with removal of tissue, and sphenoidotomy with removal of tissue. Total dissection time was approximately three times that which would ordinarily have been expected for the patient's procedure. ANESTHESIA: General endotracheal COMPLICATIONS: There were no complications; however, there was a very prolonged dissection due to the severity of the patient's massive polyposis, and therefore a 22 modifier will be appended. FINDINGS: A massive right-sided sinonasal polyposis with complete filling of the paranasal sinuses and nasal cavity with extensive polyp. There was caseous debris within the maxillary sinus, sphenoid sinus, and a large dinora bullosa which were all consistent with allergic fungal sinusitis. INDICATIONS: This 18 year old man presented with complete opacification of the entire right side of his nose and paranasal sinuses. PROCEDURE: The patient was identified in the holding area and taken back to the Operating Room, where he was placed in the supine position. After induction of general endotracheal anesthesia the table was turned, the head elevated 20 degrees, and the face draped in a sterile fashion. Afrin soaked pledgets were placed in the right side of the nose, and after waiting adequate time for decongestion the nose was approached with the nasal endoscope and Lidocaine 1% with 1:100,000 Epinephrine was injected into the lateral nasal wall and anterior portion of the middle turbinate. Because of the severity of the polyposis the remainder of the nose was not visible. Local anesthesia was injected into some of the polypoid tissue. After waiting adequate time for hemostasis and while awaiting hemostasis the image guidance system was registered and the straight and curved suctions were registered and noted to be functioning properly as well the image guided microdebrider. Once hemostasis was achieved attention was turned to the nasal polyp. Using a straight ethmoid forceps a sample of nasal polyp was removed and sent for separate pathologic analysis. Then using the microdebrider the polyp filling the entire nasal cavity was then removed. Once the sphenopalatine recess and the middle turbinate were visualized they were injected with Lidocaine 1% with 1:100,000 Epinephrine. After waiting adequate time for hemostasis again a curved scissors to the right was used to incise the large dinora bullosa which was removed with an ethmoid forceps. Then the uncinate process was incised with a sickle knife and removed with an ethmoid forceps. The natural ostium of the maxillary sinus was identified and opened posteriorly with the straight cutting forceps and inferiorly with the side biting forceps. Attention was then turned to the ethmoid sinuses. Again there was massive polyposis involving all of the ethmoid sinuses, and in a very painstaking and gradual fashion a microdebrider was used to open the ethmoid sinuses in posterior inferior to anterior superior fashion. There were no landmarks whatsoever evidence on examination. This resulted in there being a very slow and painstaking dissection. Once the ethmoid air cells were opened up attention was turned to the frontal sinus. The dissection continued into the frontoethmoidal recess and a large amount of polypoid tissue was removed from the frontoethmoidal recess. The frontal sinus was explored and then found to be patent. Attention was directed into the sphenoid sinus. Posteriorly an eroded anterior wall of the sphenoid sinus was identified and the sinus was found to be completely filled with polypoid tissue and apparent fungal debris. In a very slow and methodical way the ostium of the maxillary sinus was opened inferiorly and medially with a microdebrider and then soft tissue was removed from the sphenoid sinus and sent for separate pathologic analysis. The microdebrider was also used to remove tissue from the sinus with great care to avoid potential injury to nearby structures. Upbiting and straight upbiting forceps were also used to debride the sphenoid sinus and copious irrigation was undertaken until the sinus was completely cleaned. Then attention was turned to the tissue-filled maxillary sinus. The antrostomy was opened with upbiting forceps and the sinus was copiously irrigated. This displaced a large amount of polypoid tissue from the sinus and it was grasped with an ethmoid forceps and removed. Irrigation was continued until the sinus was completely cleaned. The posterior root of the middle turbinate was prophylactically cauterized with the suction Bovie to minimize the risk of postoperative bleeding. Extensive irrigation continued, and once there was good hemostasis and the sinuses were widely patent the patient was awakened and transferred to the Recovery Room in good condition. Yolette Govea Jr., M.D. aek Dictated: 08/25/2019 #[id number] Typed: 08/26/2019 #[id number] cc: Wiliam Carrillo Jr., M.D. [facility] Comment on above: Result Comment: Elec tronically Signed By: Yolette Govea MD\.br\Date and Time Signed: 08/26/19 09:56 EST Inpatient Patient Summaryon 08-25-2019 Inpatient Patient Summary [facility] Clinical Discharge Instructions PERSON INFORMATION Name: [facility] Admitting Physician: Yolette Govea MD Attending Physician: Yolette Govea MD PCP: ENZO VASQUES DO Discharge Diagnosis: Chronic pansinusitis Comment: PATIENT EDUCATION INFORMATION Instructions: Post Op Patient Instructions - FT (CUSTOM) Medication Leaflets: Follow up: With: Address: When: Yolette Govea [address] [place] [address] Business ([employer] In 6 days 08/31/2019 Comments: Call for followup appointment MEDICATION LIST Comment: Normal [facility] Main OR PACU I Recordon 08-06 Main OR PACU I Record PACU Phase I Document Type FT Summary Primary Physician: Yolette Govea MD Finalized Date/Time: 08/25/19 13:39:03 Pt. Name: ANTWAN GREYLUKASZ MarroquinO.B./Sex: 2000 Male Med Rec #: [id number] Physician: Yolette Govea MD Financial #: [id number] Pt. Type: A [facility]/Disch: 08/25/19 09:16:27 - Institution: Case Times PACU I FT Pre-Care Text: Identifies barriers to communication and implements measures to provide psychological support Develops individualized plan of care, and ensures continuity of care Maintains patient's dignity and privacy, and maintains patient confidentiality Identifies and reports philosophical, cultural, and spiritual beliefs and values Identifies individual values and wishes concerning care Implements aseptic technique, and administers prescribed antibiotic therapy and immunizing agents as ordered Evaluates postoperative tissue perfusion Implements thermoregulation measures, and monitors body temperature Evaluates postoperative respiratory status Evaluates postoperative cardiac status Evaluates postoperative neurological status Assesses pain control, collaborated in initiating patient-controlled analgesia and implements alternative methods of pain control Verifies allergies, administers prescribed medications and solutions, evaluates response to medications Entry 1 In PACU I 08/25/19 13:03:00 Discharge from PACU 08/25/19 13:35:00 I Outcomes Met? Yes Last Modified By: Jesenia Phan RN 08/25/19 13:38:44 Post-Care Text: The patient demonstrates knowledge of the expected response to the operative or invasive procedure The patient's care is consistent with the individualized perioperative plan of care The patient's right to privacy is maintained The patient's value system, lifestyle, ethnicity, and culture are considered, respected, and incorporated into the perioperative plan of care The patient participates in decisions affecting his or her perioperative plan of care The patient is free from signs and symptoms of infection The patient has wound/tissue perfusion consistent with or improved from baseline levels established preoperatively The patient is at or returning to normothermia at the conclusion of the immediate postoperative period The patient's respiratory function is consistent with or improved from baseline levels established preoperatively The patient's cardiovascular status is consistent with or improved from baseline levels established preoperatively The patient's cardiovascular status is consistent with or improved from baseline levels established preoperatively The patient demonstrates and/or reports adequate pain control throughout the perioperative period The patient received appropriate medication(s), safely administered during the perioperative period Acuity Level PACU I FT Entry 1 Start Time 08/25/19 13:03:00 Stop Time 08/25/19 13:35:00 Acuity Level Acuity Level I Last Modified By: Jesenia Phan RN 08/25/19 13:38:57 Finalized By: Jesenia Phan RN Document Signatures Signed By: Jesenia Phan RN 08/25/19 13:39 Normal [facility] Main OR PACU II Recordon Main OR PACU II Record PACU Phase II Document Type FT Summary Primary Physician: Yolette Govea MD Finalized Date/Time: 08/25/19 15:29:24 Pt. Name: WALE GREY/Sex: 2000 Male Med Rec #: [id number] Physician: Yolette Govea MD Financial #: [id number] Pt. Type: A Room/Bed: [place] [address] Admit/Disch: 08/25/19 09:16:27 - Institution: Case Times PACU II FT Pre-Care Text: Identifies barriers to communication and implements measures to provide psychological support and determines knowledge level Develops individualized plan of care, and ensures continuity of care Maintains patient's dignity and privacy, and maintains patient confidentiality Identifies and reports philosophical, cultural, and spiritual beliefs and values Identifies individual values and wishes concerning care administers prescribed antibiotic therapy and immunizing agents as ordered, Evaluates postoperative tissue perfusion Implements thermoregulation measures, and monitors body temperature Evaluates postoperative respiratory status Evaluates postoperative cardiac status Evaluates postoperative neurological status Assesses pain control, collaborated in initiating patient-controlled analgesia and implements alternative methods of pain control Verifies allergies, administers prescribed medications and solutions, evaluates response to medications Entry 1 In PACU II 08/25/19 13:40:00 Discharge from PACU 08/25/19 15:30:00 II Outcomes Met? Yes Last Modified By: Heavenly Hager RN 08/25/19 15:29:22 Post-Care Text: The patient demonstrates knowledge of the expected response to the operative or invasive procedure The patient's care is consistent with the individualized perioperative plan of care The patient's right to privacy is maintained The patient's value system, lifestyle, ethnicity, and culture are considered, respected, and incorporated into the perioperative plan of care The patient participates in decisions affecting his or her perioperative plan of care. The patient is free from signs and symptoms of infection The patient has wound/tissue perfusion consistent with or improved from baseline levels established preoperatively The patient is at or returning to normothermia at the conclusion of the immediate postoperative period The patient's respiratory function is consistent with or improved from baseline levels established preoperatively The patient's cardiovascular status is consistent with or improved from baseline levels established preoperatively The patient's neurological status is consistent with or improved from baseline levels established preoperatively The patient demonstrates and/or reports adequate pain control throughout the perioperative period The patient received appropriate medication(s), safely administered during the perioperative period Finalized By: Heavenly Hager RN Document Signatures Signed By: Heavenly Hager RN 08/25/19 15:29 Normal [facility] Main OR Preoperative Recordo n 08-25-2019 Main OR Preoperative Record PreOp Document Type FT Summary Primary Physician: Yolette Govea MD Finalized Date/Time: 08/25/19 11:07:39 Pt. Name: WALE GREY/Sex: 2000 Male Med Rec #: [id number] Physician: Yolette Govea MD Financial #: [id number] Pt. Type: A Room/Bed: [facility]/ Admit/Disch: 08/25/19 09:16:27 - Institution: Case Times PreOp FT Pre-Care Text: Verifies consent for planned procedure, identifies individual values and wishes concerning care, includes family members in perioperative teaching Entry 1 Patient Times. In Pre Surgery 08/25/19 09:25:00 Out Pre Surgery 08/25/19 10:35:00 Outcomes Met? Yes Last Modified By: Nelly Nguyen RN 08/25/19 11:07:37 Post-Care Text: The patient participates in decisions affecting his or her perioperative plan of care Finalized By: Nelly Nguyen RN Document Signatures Signed By: Nelly Nguyen RN 08/25/19 11:07 [facility] Operative Reporton Operative Report Patient: Ministerio GREY Age: 18 years Sex: Male : 2000 Associated Diagnoses: None Author: Yolette Govea MD Postoperative Information Procedure: RT IG microdebrider assisted MMA with r/o tissue, total ethmoidectomy, frontal sinusotomy, sphenoidotomy with r/o tissue Preoperative Diagnosis: Chronic pansinusitis (FWE29-XR J32.4, Working, Medical). Postoperative Diagnosis: Chronic pansinusitis (WCM41-IK J32.4, Discharge, Medical). Performed by: Yolette Govea MD. 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 Specimens Removed: nasal polyp, RT sinus contents, RT sinus sock, RT max sinus tissue, RT sphenoid tissue. Estimated Blood Loss: 100 ml. Medications Complications: None. Normal [facility] Comment on above: Result Comment: Elec tronically Signed By: Yolette Govea MD\.br\Date and Time Signed: 08/25/19 13:21 EST Patient Education - Texton 1 10-25-2018 Patient Education - Text Normal [facility] Coding Summary.on 08-22-2019 Coding Summary. CODING DATE: 019 FINAL [facility] STATUS: Home (Routine DC) PAYOR: Medical [facility] APC DESCRIPTION 5521 Level 1 Imaging without Contrast ADMIT DX: REASON FOR VISIT DX: Z01.818 Encounter for other preprocedural examination FINAL DX: PRINCIPAL: Z01.818 Encounter for other preprocedural examination SECONDARY: J32.4 Chronic pansinusitis PYMT PROC APC STAT DESCRIPTION DOCTOR NAME DATE NOTE: The code number assigned matches the documented diagnosis and / or procedure in the patient's chart. However, the narrative phrase printed from the coding software may appear abbreviated, or result in slightly different terminology. Coded By: Erica North CphT Date Saved: 08/22/2019 11:03 am Normal [facility] Auto Diffon 08-19-2019 Basophils/100 WBC (Bld) 1.4 % Normal 0.0-2.0 [facility] Comment on above: Order Comment: Order Added by Discern Expert. Performed By: #### 2 [id number], [id number], [id number] #### [facility] [address] [place] [address] Basophils/Leukocyte s Auto (Bld) [Pure # fraction] 0.2 E9/L Normal 0.0-0.2 [facility] Comment on above: Order Comment: Order Added by Discern Expert. Performed By: #### 2 [id number], [id number], [id number] #### [facility] [address] [place] [address] Eosinophils/100 WBC (Bld) 1.1 % Normal 0.0-8.0 [facility] Comment on above: Order Comment: Order Added by Discern Expert. Performed By: #### 2 830916, [id number], [id number] #### [facility] [address] [place] [address] Eosinophils/Leukocy carlos Auto (Bld) [Pure # fraction] 0.1 E9/L Normal 0.0-0.5 [facility] Comment on above: Order Comment: Order Added by Discern Expert. Performed By: #### 2 617720, [id number], [id number] #### [facility] [address] [place] [address] Lymphocytes/100 WBC (Bld) 21.2 % Normal 14.0-50.0 [facility] Comment on above: Order Comment: Order Added by Discern Expert. Performed By: #### 2 644895, 2804705, [id number] #### [facility] [address] [place] [address] Lymphocytes/Leukocy carlos Auto (Bld) [Pure # fraction] 2.3 E9/L Normal 1.0-4.0 [facility] Comment on above: Order Comment: Order Added by Discern Expert. Performed By: #### 2 427609, [id number], [id number] #### [facility] [address] [place] [address] Monocytes/100 WBC (Bld) 5.4 % Normal 4.0-14.0 [facility] Comment on above: Order Comment: Order Added by Discern Expert. Performed By: #### 2 162385, [id number], [id number] #### [facility] [address] [place] [address] Monocytes/Leukocyte s Auto (Bld) [Pure # fraction] 0.6 E9/L Normal 0.2-1.0 [facility] Comment on above: Order Comment: Order Added by Discern Expert. Performed By: #### 2 602583, 7583483, [id number] #### [facility] [address] [place] [address] Neutrophils/100 WBC (Bld) 70.9 % Normal 36.0-75.0 [facility] Comment on above: Order Comment: Order Added by Discern Expert. Performed By: #### 2 642739, [id number], [id number] #### [facility] [address] [place] [address] Neutrophils/Leukocy carlos Auto (Bld) [Pure # fraction] 7.6 E9/L High 2.0-7.5 [facility] Comment on above: Order Comment: Order Added by Discern Expert. Performed By: #### 2 136007, 5191083, [id number] #### [facility] [address] [place] [address] BUNon 08-19-2019 Urea nitrogen [Mass/Vol] 12 mg/dL Normal 5-21 [facility] Comment on above: Performed By: #### 2 980455, 9662253, 73746802, 6809202, [id number] #### [facility] [address] [place] [address] CBC w/ Auto Diffon 9 Erythrocyte distribution width (RBC) [Ratio] 14.1 % Normal 10.9-14.2 [facility] Comment on above: Performed By: #### 2 194841, 5290223, [id number] #### [facility] [address] [place] [address] Hematocrit (Bld) [Volume fraction] 48.4 % Normal 37.7-49.0 [facility] Comment on above: Performed By: #### 2 681668, 0703214, [id number] #### [facility] [address] [place] [address] Hemoglobin (Bld) [Mass/Vol] 16.2 g/dL Normal 13.5-17.5 [facility] Comment on above: Performed By: #### 2 000006, 5779583, [id number] #### [facility] [address] [place] [address] MCH (RBC) [Entitic mass] 29.0 pg Normal 27.0-34.0 [facility] Comment on above: Performed By: #### 2 322314, 4445963, [id number] #### [facility] [address] [place] [address] MCHC (RBC) [Mass/Vol] 33.6 g/dL Normal 31.4-36.0 [facility] Comment on above: Performed By: #### 2 579981, 0182851, [id number] #### [facility] [address] [place] [address] MCV (RBC) [Entitic vol] 86.5 fL Normal 80.0-100.0 [facility] Comment on above: Performed By: #### 2 145477, 6241780, [id number] #### [facility] [address] [place] [address] Platelet mean volume (Bld) [Entitic vol] 8.7 fL Normal 6.4-10.8 [facility] Comment on above: Performed By: #### 2 047071, 1498052, [id number] #### [facility] [address] [place] [address] Platelets (Bld) [#/Vol] 351.0 E9/L Normal 150.0-500.0 [facility] Comment on above: Performed By: #### 2 695975, 9832811, [id number] #### [facility] [address] [place] [address] RBC (Bld) [#/Vol] 5.6 E12/L Normal 4.3-5.9 [facility] Comment on above: Performed By: #### 2 920158, 3909322, [id number] #### [facility] [address] [place] [address] WBC corrected for nucl RBC Auto (Bld) [#/Vol] 10.7 E9/L Normal 4.0-11.0 [facility] Comment on above: Performed By: #### 2 642249, 2431792, [id number] #### [facility] [address] [place] [address] Creatinineon 08-19-2019 Creatinine [Mass/Vol] 0.8 mg/dL Normal 0.5-1.3 [facility] Comment on above: Performed By: #### 2 684973, 4805834, 21189559, 8822720, 3849913 #### [facility] [address] [place] [address] Glucoseon 08-19-2019 Glucose [Mass/Vol] 97 mg/dL Normal 55-199 [facility] Comment on above: Performed By: #### 2 427797, 6009246, [id number], 6385708, [id number] #### [facility] [address] [place] [address] Lyteson 08-19-2019 Anion gap [Moles/Vol] 14 mmol/L Normal 6-16 [facility] Comment on above: Performed By: #### 2 279921, 0702975, [id number], 8402036, 3889860 ####[facility] [address] [place] [address] Chloride [Moles/Vol] 104 mmol/L Normal 101-111 [facility] Comment on above: Performed By: #### 2 319932, 5183428, [id number], 5803073, [id number] ####[facility] [address] [place] [address] CO2 [Moles/Vol] 25 mmol/L Normal 21-31 [facility] Comment on above: Performed By: #### 2 668313, 2000963, [id number], [id number], [id number] ####[facility] [address] [place] [address] Potassium [Moles/Vol] 3.5 mmol/L Normal 3.5-5.3 [facility] Comment on above: Performed By: #### 2 [id number], [id number], [id number], [id number], [id number] ####[facility] [address] [place] [address] Sodium [Moles/Vol] 139 mmol/L Normal 135-145 [facility] Comment on above: Performed By: #### 2 [id number], [id number], [id number], [id number], [id number] ####[facility] [address] [place] [address] PT & PTTon 08-19-2019 aPTT Coag (PPP) [Time] 35.7 second(s) Normal 25.1-36.5 [facility] Comment on above: Result Comment: Hepa rin therapeutic range (represented by Anti-Factor Xa activity of 0.2 - 0.4 U/mL) corresponds to PTT of 56.6 - 109.0 sec. Performed By: #### 2 [id number], [id number], [id number] #### [facility] [address] [place] [address] INR Coag (PPP) [Relative time] 1.0 {INR} [facility] Comment on above: Result Comment: INR results are specifically intended to assess patients stabilized on long-term Anticoagulation therapy suggested INR?s ?Less Intensive Anticoagulation? 2.0 ? 3.0 Conventional Range 3.0 ? 4.5 Performed By: #### 2 [id number], [id number], [id number] #### [facility] [address] [place] [address] PT Coag (PPP) [Time] 11.6 second(s) Normal 10.2-12.9 [facility] Comment on above: Performed By: #### 2 [id number], [id number], [id number] #### [facility] [address] [place] [address] XR Chest 2 Viewson 9 XR Chest 2 Views Exam Date/Time: 08/19/2019 16:39 EST Reason for Exam: Pre Op Report IMPRESSION: NO EVIDENCE OF ACTIVE CHEST DISEASE. CLINICAL HISTORY: Pre Op. COMMENT: The heart is normal in size. The mediastinum is unremarkable. The lungs appear clear. No infiltration nor pleural effusion is evident. FINAL REPORT Dictated: 08/19/2019 5:22 pm Germain Bryan M.D. Signed (Electronic Signature): 08/19/2019 5:22 pm Signed by: Germain Bryan M.D. Transcribed by: JAZMYNE Technologist: ZHANNA Normal [facility] eGFRon 08-19-2019 GFR/1.73 sq M predicted among blacks MDRD (S/P/Bld) [Vol rate/Area] mL/min/{1.73_m2} Normal >=59 [facility] Comment on above: Order Comment: Order added by Discern Expert. Result Comment: eGFR is race adjusted. AA=. Performed By: #### 2 [id number], [id number], [id number], [id number], [id number] #### [facility] [address] [place] [address] GFR/1.73 sq M predicted among non-blacks MDRD (S/P/Bld) [Vol rate/Area] mL/min/{1.73_m2} Normal >=59 [facility] Comment on above: Order Comment: Order added by Discern Expert. Result Comment: Burn Out Tender Lace niall kidney disease could be indicated at eGFR's of less than 60 mL/min/1.73m2. Kidney failure is indicated at less than 15 mL/min/1.73m2. Performed By: #### 2 [id number], [id number], [id number], [id number] #### [facility] [address] [place] [address] Coding Summary.on 08-08-2019 Coding Summary. CODING DATE: 019 FINAL [facility] STATUS: Home (Routine DC) PAYOR: Medical [facility] APC DESCRIPTION 5522 Level 2 Imaging without Contrast ADMIT DX: REASON FOR VISIT DX: J32.4 Chronic pansinusitis FINAL DX: PRINCIPAL: J32.4 Chronic pansinusitis SECONDARY: PYMT PROC APC STAT DESCRIPTION DOCTOR NAME DATE NOTE: The code number assigned matches the documented diagnosis and / or procedure in the patient's chart. However, the narrative phrase printed from the coding software may appear abbreviated, or result in slightly different terminology. Coded By: Erica North CphT Date Saved: 08/08/2019 12:24 pm Normal [facility] CT Maxillofacial w/o Contras ton 08-07-2019 CT Maxillofacial w/o Contrast Exam Date/Time: 08/05/2019 13:49 EDT Reason for Exam: CHRONIC SINUSITIS Report IMPRESSION: PROMINENT PARANASAL SINUS FINDINGS, ESPECIALLY ON THE RIGHT. EXTENSIVE POLYPOSIS COULD ACCOUNT FOR THE FINDINGS. INVERTED PAPILLOMA IS A CONSIDERATION. FURTHER CLINICAL EVALUATION IS NEEDED. CLINICAL HISTORY: CHRONIC SINUSITIS. COMMENT: Unenhanced images were obtained. The right frontal sinus, right ethmoid sinus, and sphenoid sinuses are soft tissue opacified. There is near complete soft tissue opacification of the right maxillary sinus. The right maxillary ostiomeatal complex is soft tissue opacified. The left maxillary ostiomeatal complex is aerated. There are small rounded polyps or cysts in the left maxillary sinus. The left ethmoid and left frontal sinuses are aerated and unremarkable. There is slight bowing of bony aguayo of the right ethmoid sinus and of the sphenoid sinuses. No gross bone destruction is evident. The bony nasal septum is midline. Much of the right nasal cavity, especially superiorly and posteriorly is soft tissue opacified. There is apparent soft tissue opacification of dinora bullosa formation of the right middle nasal turbinate. There is aerated dinora bullosa formation of the left middle nasal turbinate. The left nasal turbinates and left nasal cavity are otherwise unremarkable. All CT scans at this facility use dose modulation, iterative reconstruction, and/or weight based dosing when appropriate to reduce radiation dose to as low as reasonably achievable. FINAL REPORT Dictated: 08/07/2019 5:02 pm Germain Bryan M.D. Signed (Electronic Signature): 08/07/2019 5:02 pm Signed by: Germain Bryan M.D. Transcribed by: JAZMYNE Technologist: YOSEPH Parr [facility] Vital Signs Date Time Vital Sign Value Performing Clinician Facility 06-03-2024 14:05040 Body height 182.25 cm [facility] 06-03-2024 14:050400 Body mass index (BMI) [Ratio] 57.3 kg/m2 [facility] 06-03-2024 14:050400 Body weight 190.5 kg [facility] 06-03-2024 14:05-0400 Diastolic blood pressure 91 mm[Hg] [facility] 06-03-2024 14:05-0400 Heart rate 83 /min [facility] 06-03-2024 14:05-0400 Respiratory rate 12 /min [facility] 06-03-2024 14:05-0400 Systolic blood pressure 146 mm[Hg] [facility] 03-09-2024 15:02-0400 Body height 182.9 cm Dominick Babrosa MD Work Phone: [facility] 03-09-2024 15:02-0400 Body mass index (BMI) [Ratio] 56.32 kg/m2 Dominick Barbosa MD Work Phone: [facility] 03-09-2024 15:02-0400 Body weight 188.38 kg Dominick Barbosa MD Work Phone: [facility] 10-06-2023 12:15-0500 Body height 182.25 cm Enzo Ball Other [employer] [facility] [employer] Other 10-06-2023 12:15-0500 Body mass index (BMI) [Ratio] 54.62 kg/m2 Enzo Ball Other [facility] [employer] Other 10-06-2023 12:15-0500 Body weight 181.44 kg Enzo Ball Other [facility] [employer] Other 09-02-2023 15:29-0500 Body height 182.9 cm Dominick Barbosa MD Work Phone: [facility] 09-02-2023 15:29-0500 Body mass index (BMI) [Ratio] 54.37 kg/m2 Dominick Barbosa MD Work Phone: [facility] 09-02-2023 15:29-0500 Body weight 181.85 kg Dominick Barbosa MD Work Phone: [facility] 05-27-2023 07:57-0400 Body height 182.88 cm Enzo Vasques Work Phone: [facility]ku[facility] Work Phone: 05-27-2023 07:57-0400 Body mass index (BMI) [Ratio] 55.81 kg/m2 Enzo Segovia Ball Work Phone: OP-Uamqwaxmjdffsz-[facility] [address] Work Phone: 05-27-2023 07:57-0400 Body surface area Derived from formula 2.89 m2 Enzo Vasques Work Phone: QI[facility]Crqwuprivvbmmy[facility] [address] Work Phone: 05-27-2023 07:57-0400 Body weight 186.66 kg Enzo Vasques Work Phone: G[facility] [address] Work Phone: 05-27-2023 07:57-0400 0 1 Enzo Vasques Work Phone: UV-Naiewushoihuzg-EqSt[facility] [address] Work Phone: Comment on above: [employer] 05-20-2023 12:20-0400 Body height 182.88 cm Enzo Luca [place] Work Phone: BY-Igwzheifhbprjh[facility] 4[address] Work Phone: 05-20-2023 12:20-0400 Body mass index (BMI) [Ratio] 56.31 kg/m2 Enzo Vasques Work Phone: [facility]nutp[facility] [address] Work Phone: 05-20-2023 12:20-0400 Body surface area Derived from formula 2.91 m2 Enzo Vasques Work Phone: LO[facility]Pzwdksuuyavyrr-[facility] 4[address] Work Phone: 05-20-2023 12:20-0400 Body weight 188.33 kg Enzo Vasques Work Phone: UY-Xogzvmbblejzxs-Wm[facility] [address] Work Phone: 05-15-2023 11:49-0400 Body temperature 96.8 [degF] Dominick Barbosa MD Work Phone: [facility] 05-15-2023 11:49-0400 Diastolic blood pressure 91 mm[Hg] Dominick Barbosa MD Work Phone: [facility] 05-15-2023 11:49-0400 Heart rate 82 /min Dominick Barbosa MD Work Phone: [facility] 05-15-2023 11:49-0400 Respiratory rate 16 /min Dominick Barbosa MD Work Phone: [facility] 05-15-2023 11:49-0400 Systolic blood pressure 139 mm[Hg] Dominick Barbosa MD Work Phone: [facility] 05-15-2023 11:18-0400 Body height 182.8 cm Dominick Barbosa MD Work Phone: [facility] 05-15-2023 11:18-0400 Body mass index (BMI) [Ratio] 55.39 kg/m2 Dominick Barbosa MD Work Phone: [facility] 05-15-2023 11:18-0400 Body weight 185.1 kg Dominick Barbosa MD Work Phone: [facility] 03-18-2023 13:56-0400 Body height 182.88 cm Enzo Vasques Work Phone: LO-Qvzgmyszkmmceu-Jz [place] Work Phone: 03-18-2023 13:56-0400 Body mass index (BMI) [Ratio] 56.63 kg/m2 Enzo Segovia Ball Work Phone: WI-Iaeuzyqrkoxnkn-Ds [place] Work Phone: 03-18-2023 13:56-0400 Body surface area Derived from formula 2.91 m2 Enzo Segovia Ball Work Phone: YB-Lzburczzoyqjvb-Wj [place] Work Phone: 03-18-2023 13:56-0400 Body weight 189.41 kg Enzo Vasques Work Phone: FX-Etlsxbvgigermt-Uw [place] Work Phone: 03-18-2023 13:56-0400 0 1 Enzo Vasques Work Phone: UN-Beggrabkxofwle-Rk [place] Work Phone: Comment on above: [employer] 11-12-2022 16:13-0500 Body height 182.88 cm Enzo Vasques Work Phone: TU-Vhxswhgkbswhui-Sm [place] Work Phone: 11-12-2022 16:13-0500 Body mass index (BMI) [Ratio] 56.89 kg/m2 Enzo Vasques Work Phone: HK-Afxxkvqfzianej-Bj [place] Work Phone: 11-12-2022 16:13-0500 Body surface area Derived from formula 2.92 m2 Enzo Vasques Work Phone: DS-Cygolnqhwxnjou-Sf [place] Work Phone: 11-12-2022 16:13-0500 Body weight 190.29 kg Enzo Vasques Work Phone: GF-Gwjfhthxshmmij-Xc [place] Work Phone: 11-12-2022 16:13-0500 0 1 Enzo Vasques Work Phone: PD-Epsssnqwwseule-Ap [place] Work Phone: Comment on above: [employer] Encounters Encounter Date Encounter Type Care Provider Facility Start: 06-03-2024 Patient encounter status [facility] Start: 06-03-2024 End: 06-03-2024 ambulatory [facility] Work Phone: Start: 06-03-2024 End: 06-03-2024 Encounter for general adult medical examination without abnormal findings [facility] Start: 06-03-2024 End: 06-03-2024 Patient encounter procedure [facility] Work Phone: Start: 03-09-2024 End: 03-09-2024 ambulatory [facility]ulatory Start: 03-09-2024 End: 03-09-2024 Office outpatient visit 15 minutes Dominick Barbosa MD Work Phone: [facility] Comment on above: Chronic ethmoidal si nusitis (Primary Dx); Chronic maxillary sinusitis Start: 10-06-2023 End: 10-06-2023 ambulatory Enzo Virginia Other [employer] Other Start: 10-06-2023 Office outpatient vi sit 15 minutes Enzo Vasques [facility] Start: 09-02-2023 End: 09-02-2023 Office outpatient visit 15 minutes Dominick Barbosa MD Work Phone: [facility] Comment on above: Chronic ethmoidal si nusitis (Primary Dx); Other chronic sinusitis; Chronic sphenoidal sinusitis Start: 09-02-2023 End: 09-02-2023 ambulatory DOMINICK BARBOSA [facility] Ambulatory Start: 06-07-2023 Chart Update Enzo morales Work Phone: LQ-Yfnblsbgsrnqcy-Xjczh in [facility] [address] Work Phone: Start: 05-27-[address] Dominick Cerda Facility:[id number] Start: 05-20-2023 Postop follow up vis it related to original px Enzo Vasques Work Phone: HW-Jgjvadrtuepycy-Fdrgz in [facility] [address] Work Phone: Start: 05-20-[address] Enzo Vasques Facility:[id number] Start: 05-15-2023 End: 05-15-[address] Dominick Barbosa Facility:[facility] Start: 05-15-2023 AUDIT Enzo morales Work Phone: SK-Qzqhldczpwygdq-Czdfu in [facility] [address] Work Phone: Start: 05-15-2023 End: 05-15-2023 Subsequent hospital visit by physician Dominick Barbosa MD Work Phone: [facility] Comment on above: Chronic ethmoidal si nusitis; Benign neoplasm of middle ear, nasal cavity and accessory sinuses; Chronic sinusitis, unspecified Start: 05-12-[address] Dominick Cerda Facility:[facility] Start: 05-12-2023 Encounter for preprocedural laboratory examination Dr. Dominick Barbosa [facility]3] Start: 03-18-2023 Office outpatient vi sit 15 minutes Enzo Vasques Work Phone: ST-Uscdtxtldveoun-Layvr in [facility] [address] Work Phone: Start: 03-18-2023 Patient encounter procedure Enzo Vasques Work Phone: LO-Aoppkdytbdgrub-Sqsdr [place] Work Phone: Start: 03-18-[address] Dominick Cerda Facility:[id number] Start: 01-07-2023 End: 01-07-2023 ambulatory Enzo Vasques Other [employer] Other Start: 01-07-2023 Telephone encounter Enzo Vasques [facility] Start: 01-06-2023 Office outpatient vi sit 25 minutes Enzo Vasques Work Phone: UZ-Wxgnhypbaazieq-Jixcs in [facility] [address] Work Phone: Start: 01-06-[address] Dominick Cerda Facility:[id number] Start: 01-05-2023 End: 01-05-2023 ambulatory Enzo Vasques Other [employer] Other Start: 01-05-2023 Office outpatient vi sit 15 minutes Enzo Vasques [facility] Start: 11-19-2022 End: 11-20-[address] DOCTOR PARISI Facility:H1 Start: 11-12-2022 Office outpatient vi sit 25 minutes Enzo Vasques Work Phone: OJ-Njkiyrafzsxoak-Dcrlj in [facility] [address] Work Phone: Start: 11-12-2022 Patient encounter procedure Enzo Vasques Work Phone: EW-Czmycdeisylrhe-Ajlxr [place] Work Phone: Start: 11-12-[address] Dominick Cerda Facility:[id number] Start: 07-29-2022 End: 08-23-[address] ENZO VASQUES Facility:H1 Start: 07-22-2022 End: 07-23-[address] ENZO VASQUES Facility:H1 Start: 06-24-2022 Well child visit Enzo Vasques Other [facility] [employer] Other Start: 03-20-2022 End: 04-25-[address] ENZO VASQUES Facility:H1 Start: 02-18-2022 End: 02-19-[address] ENZO VASQUES Facility:H1 Procedures Date Procedure Procedure Detail Performing Clinician Start: 09-02-2023 Follow-up visit Follow-up DOMINICK BARBOSA Start: 05-15-2023 SURGICAL PATHOLOGY RESULTS Dominick Barbosa MD Work Phone: Start: 08-31-2019 Anesthesia consultation Start: 08-25-2019 Anesthesia consultation Start: 04-23-2017 General examination of patient Enzo Vasques Other Start: 04-23-2017 History and physical examination, administrative Enzo Vasques Other Nasal sinus procedure Sumeet Vasques Work Phone: Plan of Treatment Date Care Activity Detail Author Start: 2050 Zoster Vaccines (1 of 2) Zoste r Vaccines (1 of 2) [facility] Start: 07-13-2024 End: 07-13-2024 Patient encounter procedure 07/13/2024 1:15 PM EDT Office Visit [facility] [address] [place] [address] Dominick Barbosa MD [address] [place] [address] [facility] Start: 06-05-2024 Influenza vaccination Influenz a Vaccine (Season Ended) [facility] Start: 03-09-2024 End: 03-09-2024 Patient encounter procedure 03/09/2024 2:45 PM EDT Office Visit [facility] [address] [place] [id number] Dominick Barbosa MD [address] [place] [address] [facility] Start: 09-02-2023 FUV, Provider: Dominick Barbosa, Status: Pen, Time: 2:45 PM FUV, Provider: Dominick Barbosa, Status: Pen, Time: 2:45 PM [facility]efv[facility] Work Phone: Start: 09-02-2023 End: 09-02-2023 Patient encounter procedure 09/02/2023 2:45 PM EST Office Visit [facility] [address] [place] [phone] Dominick Barbosa MD [address] [place] [address] [facility] Start: 06-05-2023 COVID-19 Vaccine ( season) COVID-19 Vaccine ( season) [facility] Start: 06-05-2023 Influenza vaccination Influenz a Vaccine (#1) [facility] Start: 05-27-2023 POV, Provider: Dominick Barbosa, Status: Pen, Time: 10:30 AM POV, Provider: Dominick Barbosa, Status: Pen, Time: 10:30 AM HR-Daexsmgjcltpoj-Sg[place] Work Phone: Start: 05-20-2023 POV, Provider: Dominick Barbosa, Status: Pen, Time: 12:30 PM POV, Provider: Dominick Barbosa, Status: Pen, Time: 12:30 PM AE-Bozhugoxyxviux-Vrbf [place] Work Phone: Start: 12-22-2022 DTaP/Tdap/Td Vaccine s (7 - Td or Tdap) DTaP/Tdap/Td Vaccines (7 - Td or Tdap) [facility] Start: 2022 DTaP/Tdap/Td Vaccine s (1 - Tdap) DTaP/Tdap/Td Vaccines (1 - Tdap) [facility] Start: 03-07-2021 COVID-19 Vaccine (2 - Booster for Isaias series) COVID-19 Vaccine (2 - Booster for Isaias series) [facility] Start: 2018 [facility]atitis [facility]: 2015 HPV Vaccines (1 - Ma le 3-dose series) HPV Vaccines (1 - Male 3-dose series) [facility] Start: 2011 HPV Vaccines (1 - Ma le 2-dose series) HPV Vaccines (1 - Male 2-dose series) [facility] Start: 11-28-2004 Varicella vaccination Varicell a Vaccines (2 of 2 - 2-dose childhood series) [facility] Start: 2001 MMR Vaccines (1 of 1 - Standard series) MMR Vaccines (1 of 1 - Standard series) [facility] Start: 2001 Varicella vaccination Varicell a Vaccines (1 of 2 - 2-dose childhood series) [facility] Start: 03-23-2001 COVID-19 Vaccine (#1) COVID-19 Vacci ne (#1) [facility] Start: 2000 Hepatitis B Vaccines (1 of 3 - 3-dose series) Hepatitis B Vaccines (1 of 3 - 3-dose series) [facility] Start: 2000 HIV screening HIV Screening [facility] Start: 2000 Lipid panel Lipid Panel [facility] Start: 2000 Yearly Adult Physical Yearly Adult P hysical [facility] Comprehensive metabo lic 2000 panel - Serum or Plasma [facility] Patient Education Low back pain in adults [facility] Work Phone: [facility] Immunizations Immunization Date Immunization Notes Care Provider Fa cility 09-23-2001 varicella virus vaccine Dominick Barbosa MD Work Phone: [facility] Work Phone: Payers Date Payer Category Payer Unknown 2022 Unknown [id number] 2019 Unknown [id number] 2000 Unknown [id number] 2.16.84 [id number] 2000 Unknown [id number] 2.16.84 [id number] 2000 Unknown [id number] 2.16.84 [id number] 2000 Unknown [id number] 2.16.84 [id number] 2000 Unknown [id number] 2.16.84 [id number] 2000 Unknown [id number] 2.16. [id number] 2000 Unknown [id number] 2.16. [id number] 2000 Unknown [id number] 2.16. [id number] 2000 Unknown [id number] 2.16. [id number] 2000 Unknown [id number] 2.16. [id number] 2000 Unknown [id number] 2.16. [id number] 2000 Unknown [id number] 2.16. [id number] 2000 Unknown [id number] 2.16.8 [id number] 2000 Unknown [id number] 2.16.8 [id number] Social History Date Type Detail Facility Start: 09-02-2023 End: 09-03-2023 Never a smoker Never a smoker AL-Kreodyxjizzeku-Gp raj molina Work Phone: Start: 09-02-2023 End: 09-03-2023 Sex Assigned At [facility] [place] Other Tobacco smoking status ARIS Tobacco smoking consumption unknown [facility] Work Phone: Start: 2000 [facility]igned [facility]: Start: 09-02-2023 Tobacco smoking status NHIS Never smoked tobacco [facility] Work Phone: Start: 09-02-2023 Tobacco use and exposure Smokeless tobacco non-user [facility] Work Phone: Start: 08-23-2023 End: 03-09-2024 Exposure to SARS-CoV-2 (event) Not sure [facility] Start: 2000 Sex Assigned At Male F [facility] Clinical Notes 09-04-2020 to 03-09-2024 Dominick Barbosa MD - 03/09/2024 2:45 PM EDT Note Date & Type Note Facility 03-09-2024 History of Present illness Narrative Chief Complaint: 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 Asthma 3. Obstructive sleep apnea on positive pressure 4. Deviated nasal septum History Of Present Illness: Wale Grey presents since last being seen 09/02/23. In the interval time, he has had intermittent symptoms that he attributes to seasonal allergies. These include nasal drainage, intermittent congestion, and itchy watery eyes. Main Symptoms: Patient has anterior nasal drainage. Patient has posterior nasal drainage. Patient has nasal airway obstruction. with allergies, not daily Patient does not have facial pain. Patient does not have facial pressure. Patient does not have decreased sense of smell. Associated Symptoms: Patient does not have headaches. Patient does not have nasal bleeding. Medications currently on for sinonasal symptoms: Mometasone 2mg in rinses 1x daily Active Problems: There is no problem list on file for this patient. Past Medical History: He has a past medical history of Other seasonal allergic rhinitis, Personal history of other diseases of the nervous system and sense organs, Personal history of other diseases of the respiratory system, and Personal history of other specified conditions. Surgical History: He has a past surgical history that includes Other surgical history (09/21/2019). Family History: No family history on file. Social History: He reports that he has never smoked. He has never used smokeless tobacco. No history on file for alcohol use and drug use. Allergies: Patient has no known allergies. Current Meds: Current Outpatient Medications: mometasone furoate, bulk, 100 % powder, Compound 2 mg capsule to be added to sinus rinse twice daily., Disp: 180 g, Rfl: 3 Vitals: Visit Vitals Ht 1.829 m (6') Wt (!) 188 kg (415 lb 4.8 oz) BMI 56.32 kg/m Smoking Status Never BSA 3.09 m Physical Exam: Nose: On external exam there are neither lesions nor asymmetry of the nasal tip/dorsum. On anterior rhinoscopy, visualization posteriorly is limited on anterior examination. For this reason, to adequately evaluate posteriorly for masses, source of epistaxis, polypoid disease, debridement, and/or signs of infections, nasal endoscopy is indicated. (Please see procedure below.) SINONASAL ENDOSCOPY (CPT 16992): To better evaluate the patient's symptoms, sinonasal endoscopy is indicated. After discussion of risks and benefits, and topical decongestion and anesthesia,an endoscope was used to perform nasal endoscopy on each side. A time out identifying the patient, the procedure, the location of the procedure and any concerns was performed prior to beginning the procedure. Findings: Examination of the right nasal cavity revealed a lesion within the right maxillary sinus consistent with a mucous retention cyst. There was not the typical irregularity seen with papilloma. The ethmoid cavity and sphenoid were each widely patent without evidence of papilloma. There was edematous mucosa within the frontal drainage pathway. Examination of the left nasal cavity revealed a normal middle meatus and sphenoethmoid recess without pus or polyps. 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 Asthma 3. Obstructive sleep apnea on positive pressure 4. Deviated nasal septum 5. Intermittent allergy symptoms Discussion: Wale Matilda and I discussed his current exam. I am very suspicious that what I am seeing on the right maxillary sinus represents a mucous retention cyst and not papilloma. We discussed a number of options including observation versus entering the lesion in clinic as a cystic lesion would be easy to identify. He was comfortable moving forward with this procedure and I asked him to follow-up at his convenience in the next few months for this to be performed. In the right ethmoid and sphenoid I do not see evidence of papilloma and this was the area of attachment during his prior surgical intervention. All questions were answered. I would like him to continue the mometasone rinses once per day moving forward. Signature: Scribe Attestation By signing my name below, I, Reina Irvin , Scribe attest that this documentation has been prepared under the direction and in the presence of Dominick Barbosa MD. documented in this encounter [facility] Work Phone: 10-06-2023 Evaluation note Encounter Date Diagnosis Assessment Notes Oct, Acute non-recurrent maxillary sinusitis (ICD-10 - J01.00) Instructed to use Robitussin or Mucinex for cough, saline or Flonase NS for congestion, Tylenol for pain and fever. Oct, Morbid (severe) obesity due to excess calories (ICD-10 - E66.01) This patient has been instructed on a low-fat, high-fiber diet. They are instructed to reduce calories, portion sizes and snacks. It is recommended that they exercise for 30 minutes, 3-5 times weekly. Oct, Body mass index [BMI] 50.0-59.9, adult (ICD-10 - Z68.43) [employer] Other [id number] History of Present illness Narrative* Dominick Barbosa MD - 09/02/2023 2:45 PM EST Chief Complaint: 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 Nasal airway obstruction 3. Throat clearing, coughing, dysphonia 4. Asthma 5. Obstructive sleep apnea on positive pressure 6. Deviated nasal septum History Of Present Illness: Main Symptoms: Patient does not have anterior nasal drainage. Patient does not have posterior nasal drainage. Patient does not have nasal airway obstruction. Patient does not have facial pain. Patient does not have facial pressure. Patient does not have decreased sense of smell. Associated Symptoms: Patient does not have headaches. Patient does not have throat clearing. Patient does not have coughing. Patient does not have dysphonia. Medications currently on for sinonasal symptoms: Saline rinses once per day. Wale Grey presents for follow-up after last being seen 05/27/23. His symptoms have significantly improved since his last assessment with me. He is rinsing approximately once per day. Active Problems: There is no problem list on file for this patient. Past Medical History: He has a past medical history of Other seasonal allergic rhinitis, Personal history of other diseases of the nervous system and sense organs, Personal history of other diseases of the respiratory system, and Personal history of other specified conditions. Surgical History: He has a past surgical history that includes Other surgical history (09/21/2019). Family History: No family history on file. Social History: He has no history on file for tobacco use, alcohol use, and drug use. Allergies: Patient has no allergy information on record. Current Meds: No current outpatient medications on file. Vitals: There were no vitals taken for this visit. Physical Exam: Nose: On external exam there are neither lesions nor asymmetry of the nasal tip/dorsum. On anteriorrhinoscopy, visualization posteriorly is limited on anterior examination. For this reason, to adequately evaluate posteriorly for masses, source of epistaxis, polypoid disease, debridement, and/or signs of infections, nasal endoscopy is indicated. (Please see procedure below.) SINONASAL ENDOSCOPY (CPT 73619): To better evaluate the patient's symptoms, sinonasal endoscopy is indicated. After discussion of risks and benefits, and topical decongestion and anesthesia,an endoscope was used to perform nasal endoscopy on each side. A time out identifying the patient, the procedure, the location of the procedure and any concerns was performed prior to beginning the procedure. Findings: Examination of the right nasal cavity revealed generalized mucosal edema within the maxillary, ethmoid, and sphenoid. This did not appear papillomatous. Specifically within the sphenoid, there was edema at the sphenoid face and there was crusting anterior to this that was removed. There was no purulence. Examination of the left nasal cavity revealed no evidence of pus or polyps at the middle meatus or sphenoethmoid recess. 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 Asthma 3. Obstructive sleep apnea on positive pressure 4. Deviated nasal septum Discussion: Wale Grey and I discussed his exam. He had rather significant mucosal edema on theright and I think he would do well utilizing a rinse based steroid as he has been rinsing consistently since his operation. He was comfortable with this and mometasone 2 mg was prescribed. I think utilizing this once per day would be reasonable. I recommended follow-up with me in about 4 to 6 months. If his symptoms begin to recur I have asked him to follow-up sooner. He was amenable to this and all questions were answered. Patient Discussion/Summary: Please followup with me in 4-6 months for reevaluation or sooner with any questions or concerns. Please feel free to contact my office by calling [phone] with any questions. Signature: Scribe Attestation By signing my name below, I, Reina Irvin , Tana attest that this documentation has been prepared under the direction and in the presence of Agustina Barbosa MD. documented in this [facility] Work Phone: 1(133) 542-339408-11-2023 NotePost Operative Note: PreOp Diagnosis: Right sinonasal inverted papilloma, chronic sinusitis Post-Procedure Diagnosis: Same Procedure: 1. Right nasal endoscopy with total ethmoidectomy including sphenoidotomy with tissue removal CPT 36128-F-36 2. Right nasal endoscopy with frontal sinusotomy CPT 33700-A 3. Right maxillary endoscopy with tissue removal 33384-T 4. Extracranial CT image guidance CPT 39595 Surgeon: Familia Resident/Fellow/Other Vice Chairman: None Anesthesia: GET Estimated Blood Loss (mL): 300 Specimen: yes. Microdebrider contents, right sinus contents Complications: None Findings: No CSF leak following resection Patient Returned To/Condition: Postanesthesia care unit in satisfactory condition Additional Details: 1. No absorbable or nonabsorbable packing placed 2. Papilloma was attached just lateral to the superior turbinate along the skull base and involving the superior turbinate itself 3. Separate attachment of papilloma along the lateral inferior aspect of the right sphenoid onto the sphenoid floor Operative Report Dictated: Dictation: not applicable - note contains Operative Report Operative Report: Indication for procedure: Wale Iglesias is a 22-year-old male who I been following since September 21, 2019. Prior to his initial assessment with me he had undergone right-sided endoscopic sinus surgery outside the system. 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 He and I discussed options at that initial visit and I recommended revision surgical intervention. He elected to defer and represented to my care in 2022 and was comfortable moving forward with surgical intervention at that time. Risks and benefits were reviewed and we now proceed to the operating room for this intervention. Indication for the 22 modifier: The papilloma was attached along the ethmoid skull base lateral to the superior turbinate. Dissection along the skull base was significantly more time-consuming and complex than is typical within my practice hence utilization of the 22 modifier. There was also adherence of the tumor within the lateral and inferior aspect of the right sphenoid and dissection around the carotid again was significantly more time-consuming and complex and is typically within my practice. Description of procedure: After informed consent was obtained and all questions were answered the patient was brought to the operating room and placed supine on the operating room table. General anesthesia was induced by the anesthesia staff and the patient was orally intubated. The table was turned 90 degrees. Afrin-soaked pledgets were placed within both the patient's nasal cavities. The CT image guidance system was brought to the field. The CT data was uploaded, reviewed, and the plan was finalized. The headset was attached to the patient. The image guidance was registered accurate in 3 separate orientations and was used throughout the surgical procedure to identify critical landmarks such as the borders of the orbit as well as the skull base. The patient was then prepped and draped in a standard fashion for endonasal surgery. Right maxillary endoscopy with tissue removal was performed. Nasal endoscopy on the right demonstrated papilloma lateral to the middle turbinate extending throughout the ethmoid cavity and into the posterior aspect of the right maxillary sinus. The inferior aspect of his papilloma was resected using a microdebrider. I was able to remove the tumor to the base of the previous sphenoidotomy and then laterally to the superior aspect of the inferior turbinate. There was papilloma within the posterior aspect of the maxillary sinus that was removed and was not adherent. There was an ethmoid air cell aerating immediately posterior to the posterior aspect of the maxillary sinus and there was also a papilloma within the space that was not adherent and resected and these two spaces were connected. The remainder of the maxillary sinus appeared normal superiorly but on the floor there was what appeared to be a mucous retention cyst or polyp that was completely removed. This was independent of the papilloma that was superior to this. Scarring within the natural drainage pathway of the maxillary was lysed. There was no attachment of the papilloma within the maxillary sinus. Right nasal endoscopy with total ethmoidectomy including sphenoidotomy with tissue removal was performed. Additional papilloma was resected in an inferior to superior manner within the ethmoid cavity. As I approached the skull base the tumor became more adherent. It extended anteriorly to about 1 cm short of the posterior aspect of the frontal drainage pathway. I identified both the middle and superior turbinate. There was obvious involvement of the superior turbinate as well as the lateral aspect of the middle turbinate. The middle turbinate was resected (more content not included)...[facility] (formerly [facility]3] 05-15-2023 Miscellaneous Notes* Op Note - Dominick Barbosa MD - 05/15/2023 4:37 PM EDT Post Operative Note: PreOp Diagnosis: Right sinonasal inverted papilloma, chronic sinusitis Post-Procedure Diagnosis: Same Procedure: 1. Right nasal endoscopy with total ethmoidectomy including sphenoidotomy with tissue removal CPT 84940-V-22 2. Right nasal endoscopy with frontal sinusotomy CPT 66219-T 3. Right maxillary endoscopy with tissue removal 96796-R 4. Extracranial CT image guidance CPT 91458 Surgeon: Familia Resident/Fellow/Other Vice Chairman: None Anesthesia: GET Estimated Blood Loss (mL): 300 Specimen: yes. Microdebrider contents, right sinus contents Complications: None Findings: No CSF leak following resection Patient Returned To/Condition: Postanesthesia care unit in satisfactory condition Additional Details: 1. No absorbable or nonabsorbable packing placed 2. Papilloma was attached just lateral to the superior turbinate along the skull base and involvingthe superior turbinate itself 3. Separate attachment of papilloma along the lateral inferior aspect of the right sphenoid onto the sphenoid floor Operative Report Dictated: Dictation: not applicable - note contains Operative Report Operative Report: Indication for procedure: Wale Iglesias is a 22-year-old male who I been following since 2018. Prior to his initial assessment with me he had undergone right-sided endoscopic sinus surgery outside the system. 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 He and I discussed options at that initial visit and I recommended revision surgical intervention. He electedto defer and represented to my care in 2022 and was comfortable moving forward with surgical intervention at that time. Risks and benefits were reviewed and we now proceed to the operating room for this intervention. Indication for the 22 modifier: The papilloma was attached along the ethmoid skull base lateral to the superior turbinate. Dissection along the skull base was significantly more time-consuming and complex than is typical within my practice hence utilization of the 22 modifier. There was also adherence of the tumor within the lateral and inferior aspect of the right sphenoid and dissection around the carotid again was significantly more time-consuming and complex and is typically within my practice. Description of procedure: After informed consent was obtained and all questions were answered the patient was brought to the operating room and placed supine on the operating room table. General anesthesia was induced by the anesthesia staff and the patient was orally intubated. The table was turned 90 degrees. Afrin-soaked pledgets were placed within both the patient's nasal cavities. The CT image guidance system was brought to the field. The CT data was uploaded, reviewed, and the plan was finalized. The headset was attached to the patient. The image guidance was registered accurate in 3 separate orientations and was used throughout the surgical procedure to identify critical landmarks such as the borders of the orbit as well as the skull base. The patient was then prepped and draped in a standard fashion for endonasal surgery. Right maxillary endoscopy with tissue removal was performed. Nasal endoscopy on the right demonstrated papilloma lateral to the middle turbinate extending throughout the ethmoid cavity and into the posterior aspect of the right maxillary sinus. The inferior aspect of his papilloma was resected using a microdebrider. I was able to remove the tumor to the base of the previous sphenoidotomy and thenlaterally to the superior aspect of the inferior turbinate. There was papilloma within the posterior aspect of the maxillary sinus that was removed and was not adherent. There was an ethmoid air cell aerating immediately posterior to the posterior aspect of the maxillary sinus and there was also a papilloma within the space that was not adherent and resected and these two spaces were connected. The remainder of the maxillary sinus appeared normal superiorly but on the floor there was what appeared to be a mucous retention cyst or polyp that was completely removed. This was independent of the papilloma that was superior to this. Scarring within the natural drainage pathway of the maxillary was lysed. There was no attachment of the papilloma within the maxillary sinus. Right nasal endoscopy with total ethmoidectomy including sphenoidotomy with tissue removal was performed. Additional papilloma was resected in an inferior to superior manner within the ethmoid cavity. As I approached the skull base the tumor became more adherent. It extended anteriorly to about 1 cm short of the posterior aspect of the frontal drainage pathway. I identified both the middle and superior turbinate. There was obvious involvement of the superior turbinate as well as the lateral aspect of the middle turbinate. The middle turbinate was resected and the posterior blood supply was cauterized. This gave me a plane of dissection between the septum and the tumor itself. For the time being I let the superior turbinate remain and dissected lateral to it to the level of the skull base.There was a area of adherence a few millimeters lateral to the lateral aspect of the superior turbinate. Lateral to the attachment point there was papilloma to the skull base but there were ethmoid air cells that were remodeled just adjacent to the skull base and I was able to remove these and grossly clear the papilloma in this region. Along the orbit there was a similar clinical appearance withsome remodeled ethmoid air cells adjacent to the orbit that when removed demonstrated that the lamina was not directly involved with the tumor. I then entered the sphenoid itself and there was a previously created sphenoidotomy that was widely patent. The sphenoid was completely filled with papilloma. I debulked the papilloma in all orientations and it was attached along the lateral inferior one half of the right sphenoid and along the lateral aspect of the floor. Medially there was extensive papilloma but there was no clear attachment point. Similar to along the orbit, there was a remodeled e thmoid air cell that was within the sphenoid covering the planum and superior lateral wall that wasremoved and this brought extensive papilloma with it and revealed the carotid and optic nerve without invasion at that level. The attachments of the papilloma within the sphenoid were removed with a curette grossly removing all papilloma in that area. The sphenoidotomy during this time was widened in all orientations and I encountered the posterior septal artery blood supply and this was cauterized. There were several other perforators off of the sphenopalatine artery that were encountered and cauterized. There was tumor noted superiorly and medially posterior to the superior turbinate that was completely resected and again there was no area of adherence at that level. I then returned to the ethmoid skull base. The tumor was debulked to an area of protruding bone several millimeters lateral to the superior turbinate and running in the same orientation. Tumor was grossly resected to thatlevel and then using a monopolar all adherent tissue to this was cauterized. At this point there was no papilloma lateral to this area of attachment but medially there was obvious papilloma involvingthe entirety of the lateral aspect of the superior turbinate. Therefore, the superior turbinate wasresected to the level of the skull base grossly clearing the papilloma at that level. This allowed me access posterior to the superior turbinate and remove additional papilloma at that level clearingit to the posterior ethmoid skull base junction with the planum. During dissection at the junction between the posterior ethmoid skull base and planum the posterior ethmoid artery was encountered andcauterized. At this point, the papilloma had a grossly resected and the 2 areas of attachment did not demonstrate evidence of papilloma. Frozen sections were not obtained at either location secondaryto the wide clearance as well as concern, particularly along the ethmoid skull base, that additional dissection would result in a CSF leak. At this point in the case, Valsalva did not demonstrate CSFleakage but I had widely dissected the ethmoid skull base and all orientations. Dissection along the ethmoid skull base and in the sphenoid was significantly more complex and time-consuming than is typical within my practice. Right nasal endoscopy with frontal sinusotomy was performed. With identification of the cranial base posteriorly I proceeded anteriorly. Remnant anterior ethmoid air cells within the frontal drainagepathway were identified and removed and the frontal sinus was cannulated and opened widely in all orientations. There was no papilloma at that level. Hemostasis was deemed excellent. The patient was turned over to the anesthesia staff and extubated in the operating room without complication. He was transported to the postanesthesia care unit in satisfactory condition. I attest that Dr. Dominick Barbosa performed the entirety of this procedure. There were no intraoperative complications noted. Electronic Signatures: Dominick Barbosa) (Signed 15-May-2023 17:00) Authored: Post Operative Note, Note Completion Last Updated: 15-May-2023 17:00 by Dominick Barbosa) documented in this [facility] Work Phone: 1(720) 759-393808-11-2023 Note* Op Note - Dominick Barbosa MD - 05/15/2023 4:37 PM EDT Post Operative Note: PreOp Diagnosis: Right sinonasal inverted papilloma, chronic sinusitis Post-Procedure Diagnosis: Same Procedure: 1. Right nasal endoscopy with total ethmoidectomy including sphenoidotomy with tissue removal CPT 44223-V-43 2. Right nasal endoscopy with frontal sinusotomy CPT 24456-C 3. Right maxillary endoscopy with tissue removal [id number]-L 4. Extracranial CT image guidance CPT 18889 Surgeon: Familia Resident/Fellow/Other Vice Chairman: None Anesthesia: GET Estimated Blood Loss (mL): 300 Specimen: yes. Microdebrider contents, right sinus contents Complications: None Findings: No CSF leak following resection Patient Returned To/Condition: Postanesthesia care unit in satisfactory condition Additional Details: 1. No absorbable or nonabsorbable packing placed 2. Papilloma was attached just lateral to the superior turbinate along the skull base and involvingthe superior turbinate itself 3. Separate attachment of papilloma along the lateral inferior aspect of the right sphenoid onto the sphenoid floor Operative Report Dictated: Dictation: not applicable - note contains Operative Report Operative Report: Indication for procedure: Wale Iglesias is a 22-year-old male who I been following since 2018. Prior to his initial assessment with me he had undergone right-sided endoscopic sinus surgery outside the system. 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 He and I discussed options at that initial visit and I recommended revision surgical intervention. He electedto defer and represented to my care in 2022 and was comfortable moving forward with surgical intervention at that time. Risks and benefits were reviewed and we now proceed to the operating room for this intervention. Indication for the 22 modifier: The papilloma was attached along the ethmoid skull base lateral to the superior turbinate. Dissection along the skull base was significantly more time-consuming and complex than is typical within my practice hence utilization of the 22 modifier. There was also adherence of the tumor within the lateral and inferior aspect of the right sphenoid and dissection around the carotid again was significantly more time-consuming and complex and is typically within my practice. Description of procedure: After informed consent was obtained and all questions were answered the patient was brought to the operating room and placed supine on the operating room table. General anesthesia was induced by the anesthesia staff and the patient was orally intubated. The table was turned 90 degrees. Afrin-soaked pledgets were placed within both the patient's nasal cavities. The CT image guidance system was brought to the field. The CT data was uploaded, reviewed, and the plan was finalized. The headset was attached to the patient. The image guidance was registered accurate in 3 separate orientations and was used throughout the surgical procedure to identify critical landmarks such as the borders of the orbit as well as the skull base. The patient was then prepped and draped in a standard fashion for endonasal surgery. Right maxillary endoscopy with tissue removal was performed. Nasal endoscopy on the right demonstrated papilloma lateral to the middle turbinate extending throughout the ethmoid cavity and into the posterior aspect of the right maxillary sinus. The inferior aspect of his papilloma was resected using a microdebrider. I was able to remove the tumor to the base of the previous sphenoidotomy and thenlaterally to the superior aspect of the inferior turbinate. There was papilloma within the posterior aspect of the maxillary sinus that was removed and was not adherent. There was an ethmoid air cell aerating immediately posterior to the posterior aspect of the maxillary sinus and there was also a papilloma within the space that was not adherent and resected and these two spaces were connected. The remainder of the maxillary sinus appeared normal superiorly but on the floor there was what appeared to be a mucous retention cyst or polyp that was completely removed. This was independent of the papilloma that was superior to this. Scarring within the natural drainage pathway of the maxillary was lysed. There was no attachment of the papilloma within the maxillary sinus. Right nasal endoscopy with total ethmoidectomy including sphenoidotomy with tissue removal was performed. Additional papilloma was resected in an inferior to superior manner within the ethmoid cavity. As I approached the skull base the tumor became more adherent. It extended anteriorly to about 1 cm short of the posterior aspect of the frontal drainage pathway. I identified both the middle and superior turbinate. There was obvious involvement of the superior turbinate as well as the lateral aspect of the middle turbinate. The middle turbinate was resected and the posterior blood supply was cauterized. This gave me a plane of dissection between the septum and the tumor itself. For the time being I let the superior turbinate remain and dissected lateral to it to the level of the skull base.There was a area of adherence a few millimeters lateral to the lateral aspect of the superior turbinate. Lateral to the attachment point there was papilloma to the skull base but there were ethmoid air cells that were remodeled just adjacent to the skull base and I was able to remove these and grossly clear the papilloma in this region. Along the orbit there was a similar clinical appearance withsome remodeled ethmoid air cells adjacent to the orbit that when removed demonstrated that the lamina was not directly involved with the tumor. I then entered the sphenoid itself and there was a previously created sphenoidotomy that was widely patent. The sphenoid was completely filled with papilloma. I debulked the papilloma in all orientations and it was attached along the lateral inferior one half of the right sphenoid and along the lateral aspect of the floor. Medially there was extensive papilloma but there was no clear attachment point. Similar to along the orbit, there was a remodeled e thmoid air cell that was within the sphenoid covering the planum and superior lateral wall that wasremoved and this brought extensive papilloma with it and revealed the carotid and optic nerve without invasion at that level. The attachments of the papilloma within the sphenoid were removed with a curette grossly removing all papilloma in that area. The sphenoidotomy during this time was widened in all orientations and I encountered the posterior septal artery blood supply and this was cauterized. There were several other perforators off of the sphenopalatine artery that were encountered and cauterized. There was tumor noted superiorly and medially posterior to the superior turbinate that was completely resected and again there was no area of adherence at that level. I then returned to the ethmoid skull base. The tumor was debulked to an area of protruding bone several millimeters lateral to the superior turbinate and running in the same orientation. Tumor was grossly resected to thatlevel and then using a monopolar all adherent tissue to this was cauterized. At this point there was no papilloma lateral to this area of attachment but medially there was obvious papilloma involvingthe entirety of the lateral aspect of the superior turbinate. Therefore, the superior turbinate wasresected to the level of the skull base grossly clearing the papilloma at that level. This allowed me access posterior to the superior turbinate and remove additional papilloma at that level clearingit to the posterior ethmoid skull base junction with the planum. During dissection at the junction between the posterior ethmoid skull base and planum the posterior ethmoid artery was encountered andcauterized. At this point, the papilloma had a grossly resected and the 2 areas of attachment did not demonstrate evidence of papilloma. Frozen sections were not obtained at either location secondaryto the wide clearance as well as concern, particularly along the ethmoid skull base, that additional dissection would result in a CSF leak. At this point in the case, Valsalva did not demonstrate CSFleakage but I had widely dissected the ethmoid skull base and all orientations. Dissection along the ethmoid skull base and in the sphenoid was significantly more complex and time-consuming than is typical within my practice. Right nasal endoscopy with frontal sinusotomy was performed. With identification of the cranial base posteriorly I proceeded anteriorly. Remnant anterior ethmoid air cells within the frontal drainagepathway were identified and removed and the frontal sinus was cannulated and opened widely in all orientations. There was no papilloma at that level. Hemostasis was deemed excellent. The patient was turned over to the anesthesia staff and extubated in the operating room without complication. He was transported to the postanesthesia care unit in satisfactory condition. I attest that Dr. Dominick Barbosa performed the entirety of this procedure. There were no intraoperative complications noted. Electronic Signatures: Dominick Barbosa) (Signed 15-May-2023 17:00) Authored: Post Operative Note, Note Completion Last Updated: 15-May-2023 17:00 by Dominick Barbosa) [facility] Work Phone: [phone] History of Present illness Narrative* Wale presents for his first postoperative visit following right-sided sinus surgery in 05/15/23. * Following his surgery he has done well. He has been having some headaches that are controlled with Tylenol. His breathing has been significantly improved. He is rinsing several times per day. He denies significant nasal drainage. [facility]gc[facility] [address] Work Phone: [phone] NoteHistory of Present Illness: History Present Illness: Reason for surgery: Right sinonasal papilloma HPI: Demetrio is a 22-year-old male with a history of biopsy-proven right sinonasal papilloma. He and I discussed options and I recommended surgical intervention. He presents today for this procedure. Allergies: Allergies: No Known Allergies: Home Medication Review: Home Medications Reviewed: yes Impression/Procedure: Impression and Planned Procedure: Right-sided endoscopic sinus surgery with image guidance ERAS (Enhanced Recovery After Surgery): ERAS Patient: no Vital Signs: Temperature C: 36 degrees C Temperature F: 96.8 degrees F Heart Rate: 82 beats per minute Respiratory Rate: 16 breath per minute Blood Pressure Systolic: 139 mm/Hg Blood Pressure Diastolic: 91 mm/Hg Physical Exam by System: Respiratory/Thorax: No stridor. Cardiovascular: Warm extremities. Consent: COVID-19 Consent: COVID-19 Risk ConsentSurgeon has reviewed ross risks related to the risk of renetta COVID-19 and if they contract COVID-19 what the risks are. Electronic Signatures: Dominick Barbosa) (Signed 15-May-2023 11:51) Authored: History of Present Illness, Allergies, Home Medication Review, Impression/Procedure, ERAS, Physical Exam, Consent, Note Completion Last Updated: 15-May-2023 11:51 by Dominick Barbosa)[facility]3]08-11-2023 History and physical note* Dominick Barbosa MD - 05/15/2023 11:49 AM EDT History of Present Illness: History Present Illness: Reason for surgery: Right sinonasal papilloma HPI: Demetrio is a 22-year-old male with a history of biopsy-proven right sinonasal papilloma. He and I discussed options and I recommended surgical intervention. He presents today for this procedure. Allergies: Allergies: No Known Allergies : Home Medication Review: Home Medications Reviewed: yes Impression/Procedure: Impression and Planned Procedure: Right-sided endoscopic sinus surgery with image guidance ERAS (Enhanced Recovery After Surgery): ERAS Patient: no Vital Signs: Temperature C: 36 degrees C Temperature F: 96.8 degrees F Heart Rate: 82 beats per minute Respiratory Rate: 16 breath per minute Blood Pressure Systolic: 139 mm/Hg Blood Pressure Diastolic: 91 mm/Hg Physical Exam by System: Respiratory/Thorax: No stridor. Cardiovascular: Warm extremities. Consent: COVID-19 Consent: COVID-19 Risk Consent Surgeon has reviewed ross risks related to the risk of renetta COVID-19 and if they contract COVID-19 what the risks are. Electronic Signatures: Dominick Barbosa) (Signed 15-May-2023 11:51) Authored: History of Present Illness, Allergies, Home Medication Review, Impression/Procedure, ERAS, Physical Exam, Consent, Note Completion Last Updated: 15-May-2023 11:51 by Dominick Barbosa) [facility] Work Phone: [phone]) 828-503008-11-2023 History and physical note* Dominick Barbosa MD - 05/15/2023 11:49 AM EDT History of Present Illness: History Present Illness: Reason for surgery: Right sinonasal papilloma HPI: Demetrio is a 22-year-old male with a history of biopsy-proven right sinonasal papilloma. He and I discussed options and I recommended surgical intervention. He presents today for this procedure. Allergies: Allergies: No Known Allergies : Home Medication Review: Home Medications Reviewed: yes Impression/Procedure: Impression and Planned Procedure: Right-sided endoscopic sinus surgery with image guidance ERAS (Enhanced Recovery After Surgery): ERAS Patient: no Vital Signs: Temperature C: 36 degrees C Temperature F: 96.8 degrees F Heart Rate: 82 beats per minute Respiratory Rate: 16 breath per minute Blood Pressure Systolic: 139 mm/Hg Blood Pressure Diastolic: 91 mm/Hg Physical Exam by System: Respiratory/Thorax: No stridor. Cardiovascular: Warm extremities. Consent: COVID-19 Consent: COVID-19 Risk Consent Surgeon has reviewed ross risks related to the risk of renetta COVID-19 and if they contract COVID-19 what the risks are. 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 * Verbal consent was requested and obtained from WALE GREY on this date, 01/06/2023 03:30 PM , for a telehealth visit. * 1. 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 Nasal airway obstruction * 3. Throat clearing, coughing, dysphonia * 4. Asthma * 5. Obstructive sleep apnea on positive pressure [facility] [address] Work Phone: [phone] History of Present illness Narrative* Reason for visit: * WALE GREY patient presents since last being seen 01/06/23. * Wale presents for routine follow-up. He is interested in going forward with his inverted papillomaresection and would like to schedule it as soon as there is availability. SP-Jwmtdobbrqwtkw-Ybwcsflv Work Phone: [phone] History of Present illness Narrative* Reason for visit: * WALE GREY patient presents since last being seen 01/06/23. * Wale presents for routine follow-up. 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 [facility] [address] Work Phone: [phone]) [phone] Evaluation note* Encounter Date Diagnosis Assessment Notes Treatment Notes Treatment Clinical Notes Jan, COVID (ICD-10 - U07.1) Aware of quarantine guidelines. Due to age, vaccination status and time from onset of symptoms, he is not a candidate for Paxlovid Self isolate at home. - Cannot work - avoid contact with others - avoid pets - wipe counters, door knobs if touched - if can't avoid leaving home, must wear mask to protect others - need to stay isolated for 10 days from onset of symptoms or contact with COVID positive individual - to discontinue isolation must be 10 days AND must be without fever for 24 hours AND symptoms must be improving. Always wear a mask in public places. Jan, Acute non-recurrent maxillary sinusitis (ICD-10 - J01.00) Instructed to use Robitussin or Mucinex for cough, saline or Flonase NS for congestion, Tylenol for pain and fever. [facility] Other 12-01-2020 History of Present illness Narrative* Reason for visit: * WALE GREY patient presents since last being seen 09/04/20. * Main Symptoms: * Patient does not have anterior nasal drainage. * Patient does not have posterior nasal drainage. * Patient has nasal airway obstruction. bilateral. * Patient does not have facial pain. * Patient does not have facial pressure. * Patient does not have decreased sense of smell. * Associated Symptoms: * Patient does not have headaches. * Patient has throat clearing. * Patient has coughing. * Patient has dysphonia. * Patient does not have nasal bleeding. * Medications currently on for sinonasal symptoms Flonase/Fluticasone - PRN (as needed) . * Other Pertinent Medical Conditions: * Patient has asthma. * Patient does not have aspirin sensitivity. * The patient has not had imaging of sinuses. * Wale presents for followup. He saw Dr. Govea a couple weeks ago regarding a refill for his CPAP equipment, they were advised to make an appointment here for endoscopy. He's not had any significant sinonasal symptoms and is using flonase only as needed. WD-Vhmsrzfjoabsoe-Vsabvudv Work Phone: [phone] History of Present illness Narrative* Reason for visit: * WALE GREY patient presents since last being seen 09/04/20. * Main Symptoms: * Patient does not have anterior nasal drainage. * Patient does not have posterior nasal drainage. * Patient has nasal airway obstruction. bilateral. * Patient does not have facial pain. * Patient does not have facial pressure. * Patient does not have decreased sense of smell. * Associated Symptoms: * Patient does not have headaches. * Patient has throat clearing. * Patient has coughing. * Patient has dysphonia. * Patient does not have nasal bleeding. * Medications currently on for sinonasal symptoms Flonase/Fluticasone - PRN (as needed) . * Other Pertinent Medical Conditions: * Patient has asthma. * Patient does not have aspirin sensitivity. * The patient has not had imaging of sinuses. * Wale presents today since last being seen in 2019. At that time, I recommended definitive surgicalintervention for the inverted papilloma and imaging was ordered to start this process. * More recently, he was seen by Dr. Govea in regard to his sleep apnea and Dr. Govea recommended that he return to see me for repeat assessment of the papilloma. He is using Flonase as needed and at baseline is doing very well outside of some nasal breathing issues. [facility]ajmsztypeonf-[facility]ijxhvqCH[facility] [address] Work Phone: Evaluation note* Diagnosis Chronic ethmoidal sinusitis Benign neoplasm of middle ear, nasal cavity and accessory sinuses Benign neoplasm of nasal cavities, middle ear, and accessory sinuses Chronic sinusitis, unspecified documented in this encounter [facility] Work Phone: Evaluation note* Diagnosis Chronic ethmoidal sinusitis- Primary Other chronic sinusitis Chronic sphenoidal sinusitis documented in this encounter [facility] Work Phone: Evaluation note* Diagnosis Chronic ethmoidal sinusitis- Primary Chronic maxillary sinusitis documented in this encounter [facility] Work Phone: Evaluation note* Diagnosis Onset Date Resolution Status Bulging lumbar disc acute Elevated BP without diagnosis of hypertension acute Low back pain acute Obesity acute Wellness examination [facility] Work Phone: History general Narrative - Reported* Type Description Date Medical History Intermittent asthma Medical History Polyp of right nasal cavity Medical History Lumbar back pain wit h radiculopathy affecting left lower extremity Medical History Morbid obesity Medical History Acute bilateral low back pain with left-sided sciatica Medical History Acute seasonal allergic rhinitis due to pollen Surgical History Total endoscopic ethmoidectomy 08/25/2019 Hospitalization History see surgical history [facility] Other History of Present illness Narrative* Wale presents following imaging for review. He mentioned recently being diagnosed with the coronavirus and this has worsened his baseline sinonasal symptoms. * He obtained imaging outside the system but I was able to review the report today. We will request his image formally but the report demonstrated a right sided 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 [facility] Work Phone: Summary Purpose Family History Unknown Family Member Name Dates Details Family history of diabetes m ellitus: Father(V18.0, Z83.3) Status:Active Thyroid trouble: Mother Status:Active Heart trouble: Father Status:Active Anxiety: Brother Status:Active Unknown Family Member Name Dates Details Family history of diabetes m ellitus: Father(V18.0, Z83.3) Status:Active Thyroid trouble: Mother Status:Active Heart trouble: Father Status:Active Anxiety: Brother Status:Active Unknown Family Member Name Dates Details Family history of diabetes m ellitus: Father(V18.0, Z83.3) Status:Active Thyroid trouble: Mother Status:Active Heart trouble: Father Status:Active Anxiety: Brother Status:Active Unknown Family Member Name Dates Details Family history of diabetes m ellitus: Father(V18.0, Z83.3) Status:Active Thyroid trouble: Mother Status:Active Heart trouble: Father Status:Active Anxiety: Brother Status:Active Unknown Family Member Name Dates Details Family history of diabetes m ellitus: Father(V18.0, Z83.3) Status:Active Thyroid trouble: Mother Status:Active Heart trouble: Father Status:Active Anxiety: Brother Status:Active Unknown Family Member Name Dates Details Anxiety: Brother Status:Active Heart trouble: Father Status:Active Thyroid trouble: Mother Status:Active Family history of diabetes m ellitus: Father(V18.0, Z83.3) Status:Active Unknown Family Member Name Dates Details Family history of diabetes m ellitus: Father(V18.0, Z83.3) Status:Active Thyroid trouble: Mother Status:Active Heart trouble: Father Status:Active Anxiety: Brother Status:Active Unknown Family Member Name Dates Details Family history of diabetes m ellitus: Father(V18.0, Z83.3) Status:Active Thyroid trouble: Mother Status:Active Heart trouble: Father Status:Active Anxiety: Brother Status:Active Relationship Condition Age at Onset Recorded Date/T jose father Diabetes mellitus Unknown Advance Directives Advance Directive Response Recorded Date/ Time Advance Directives No June 03, 2024 1:52pm Chief Complaint * 1. 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 Asthma * 1. 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 Asthma * 1. 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 Nasal airway obstruction * 3. Throat clearing, coughing, dysphonia * 4. Asthma * 5. Obstructive sleep apnea on positive pressure * 6. Deviated nasal septum * 1. 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 Nasal airway obstruction * 3. Throat clearing, coughing, dysphonia * 4. Asthma * 5. Obstructive sleep apnea on positive pressure * 6. Deviated nasal septum * 1. 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 Nasal airway obstruction * 3. Throat clearing, coughing, dysphonia * 4. Asthma * 5. Obstructive sleep apnea on positive pressure * 6. Deviated nasal septum Chief Complaint and Reason for Visit Chief Complaint [facility] Reason for Visit Bulging lumbar disc Elevated BP without diagnosis of hypertension Low back pain Obesity Wellness examination Additional Source Comments (unrecognized sect ion and content) No Status Records FoundNo Status Records FoundNo Status Records FoundNo Status Records FoundNo Status Records Found INFORMATION SOURCE (unrecogn ized section and content) DATE CREATED AUTHOR 03/06/2020 [facility] DATE CREATED AUTHOR AUTHOR'S ORGANIZ ATION 11/24/2022 [facility] DATE CREATED AUTHOR AUTHOR'S ORGANIZ ATION 05/28/2023 [employer] DATE CREATED AUTHOR AUTHOR'S ORGANIZ ATION 06/05/2023 [facility] DATE CREATED AUTHOR AUTHOR'S ORGANIZ ATION 03/11/2024 [facility] REASON FOR VISIT (unrecogniz ed section and content) Reason Comments Other Right endoscopic sin us surgery with image guidance, right endoscopic medial maxillectomy, septoplasty Reason Comments Follow-up Care Teams (unrecognized sec tion and content) [employer] Relationship Specialty Start Date End Date Enzo Vasques DO PCP - General 09/21/19 [employer] Install[employer] Relationship Specialty Start Date End Date Enzo Vasques DO PCP - General 09/21/19 [employer] Install[employer] Relationship Specialty Start Date End Date Enzo Vasques DO PCP - General 09/21/19 Cristiana Triplett, CHEMICAL PATHOLOGIST-MANAGER [employer] [id number] [place] [address] PCP - Cyndie ENCISO PCP 09/04/23 Team Status: Active Member Role Status Dates Enzo Vasques , Primary Care Provider Active Team Status: Inactive Member Role Status Dates Enzo Vasques DO Primary Care Provide r, Attending Provider Active Start: June 03, 2024 End: June 03, 2024 Goals (unrecognized section and content) Goals may be documented in a n alternate section FOR RECORDS PERTAINING TO PATIENTS WHO ARE OR HAVE BEEN ENROLLED IN A CHEMICAL DEPENDENCY/SUBSTANCEABUSE PROGRAM, SOME INFORMATION MAY BE OMITTED. This clinical summary was aggregated from multiple sources. Caution should be exercised in using it in the provision of clinical care. This summary normalizes information from multiple sources, and as a consequence, information in this document may materially change the coding, format and clinical context of patient data. In addition, data may be omitted in some cases. CLINICAL DECISIONS SHOULD BE BASED ON THE PRIMARY CLINICAL RECORDS. [facility] [employer] [facility]. provides no warranty or guarantee of the accuracy or completeness of information in this document.
--- NOTE | 2024-07-04 14:40 | P.CN_ITS ---
Consult Note: HPI Data of Consult Patient: new to practice Consult date: 07/04/24 Requesting Physician: Ruth Pfeiffer MD Primary Care Provider: Enzo Vasques DO Family Provider: Enzo Vasques DO Consult Narrative Reason for consult: low back, left leg pain Narrative: 23yom who presents for evaluation. 2 year history of low back, left leg pain. previous mri in 2021 shows multilevel disc herniation and ddd. recently completed pt 2x/week for 6 weeks in past 3 months, without lasting benefit. uses tylenol and advil, as needed. denies adverse med side effects. cc:: CC: Ruth Pfeiffer MD Review of Systems ROS Status of ROS 10 or more systems reviewed and unremark able except as noted in history and below Meds Home Medications and Allergies Home Medications ?Medication ?Instructions ?Recorded ?Confirmed ?Type metformin 850 mg tablet 850 mg PO DAILY 07/04/24 07/04/24 History Allergies Allergy/AdvReac Type Severity Reaction Status Date / Time No Known Drug Allergies Allergy Verified 07/04/24 14:19 Exam Narrative Exam Narrative: Psych-alert and oriented x 3. Attentive and appropriate, constitutionally normal, displays normal mood and affect per situation. There are no obvious deficits in memory, reasoning, or intellect.? Skin-no obvious rashes, bruising, erythema noted to the patient's area of pain.? Extremities- extremities are warm with minimal edema and palpable pulses. Lumbar-tenderness to palpation noted in the lumbar spine and paraspinal musculature. Pain is elicited with flexion, extension, and lateral rotation of the lumbar spine. Range of motion is diminished with these motions. Facet loading maneuvers are positive. Strength-noted to be unremarkable with the exception of decreased strength rated at 4 out of 5 in left quadriceps femoris, anterior tibialis. Sensory-no notable sensory deficits in the bilateral lower extremities to touch or pinprick in all dermatomal distributions with the exception to decreased sensation to the left L5, S1 dermatomal distribution Coordination remains intact.? Gait remains non-antalgic. Assessment and Plan Assessment and Plan (1) Lumbar stenosis with neurogenic claudication: (2) Lumbar spondylosis: Plan 23yom who presents for evaluation. failed conservative measures, as noted. imaging reviewed, as noted. given symptoms and previous old imaging, would like to update lumbar mri without contrast. he is in agreement. meds reviewed, no changes. follow up after imaging complete.
== END 2024-07-04 13:31 | disposition home or self-care (01) ==
PROVIDERS: Family Provider Internal Medicine; PCP Internal Medicine; Visit Provider Anesthesiology
DX: M48.062 Spinal stenosis, lumbar region with neurogenic claudication (principal); M47.816 Spondylosis without myelopathy or radiculopathy, lumbar region
CPT/HCPCS: G0463

== ENCOUNTER 2024-07-11 15:14 | Outpatient (OUT) | payer BC, SELFPAY ==
--- NOTE | 2024-07-11 15:16 | MR_ITS ---
[address] [address] Patient Name: HAKAN [place] MRN: [id number] date: 2000 Sex: M Assigned Patient Location: MRI Current Patient Location: MRI Accession/Order Number: [id number] Exam Date: 07/11/2024 15:20 Report Date: 07/12/2024 13:36 At the request of: CASSIA DIAZ Procedure: MR lumbar spine wo con EXAMINATION: MR lumbar spine wo con HISTORY: Lumbar Spinal Stenosis With Neurogenic Claudication. Chronic low back pain, left hip pain. COMPARISON: 07/22/2022. TECHNIQUE: Multiplanar, multisequence MRI images of the lumbar spine without intravenous contrast. FINDINGS: Stable grade 1 retrolisthesis L4-L5. Stable grade 1 anterolisthesis L5-S1. Remaining vertebral bodies anatomically aligned. Slight progression of mild disc space narrowing L4-L5. No compression fractures. Conus medullaris terminates at L1. No abnormal signal in the distal spinal cord and the conus medullaris. L5-S1: There is stable chronic bilateral L5 pars defect. Slight progression of left foraminal disc extrusion with superior migration. Moderate facet arthropathy. There remains no spinal canal stenosis. Progression of severe left foraminal stenosis. L4-L5: Grade 1 retrolisthesis. Disc bulge with a superimposed central disc extrusion with mild inferior migration, slightly enlarged in size. The herniated disc measures 6 mm in the AP dimension with 6 mm inferior migration. Previously this measured 5 mm in the AP dimension with 4 mm inferior migration. Moderate facet arthropathies. Stable mild thecal sac effacement. Mild right and [id number] left neural foraminal stenosis, minimally progressed. L3-L4: Stable disc bulge asymmetric to the right. There remains no spinal canal stenosis. Stable minimal right lateral recess encroachment. L2-L3: Stable disc bulge without spinal canal stenosis. Stable mild bilateral foraminal stenosis. L1-L2: Disc bulge, with a superimposed right subarticular to right far lateral disc protrusion. Mild facet arthropathy. Stable mild to moderate right lateral recess stenosis and mild right foraminal stenosis. T12-L1: Disc bulge, with a right subarticular disc extrusion, with mild inferior migration. Moderate facet arthropathy. Stable mild to moderate spinal canal and asymmetric severe right neural foraminal stenosis. T11-T12: Partially visualized on sagittal images. Stable disc bulge asymmetric to the left with possible mild spinal canal stenosis. MR/MR lumbar spine wo con IMPRESSION: 1. At L4-L5, there is slight progression of disc bulge with superimposed central disc extrusion. There is stable mild thecal sac effacement. Slight progression of mild right and [id number] left foraminal stenosis. Stable degenerative grade 1 retrolisthesis secondary to facet arthropathy. 2. At L5-S1, there is stable grade 1 anterolisthesis secondary to chronic bilateral L5 pars defects. There is enlargement of a left foraminal disc extrusion with progression of severe left foraminal stenosis. 3. At T12-L1, there is a stable disc herniation with stable mild to moderate spinal canal and severe right neural foraminal stenosis. 4. At L1-L2, stable degenerative changes with stable mild to moderate right lateral recess and mild right foraminal stenosis. Electronically authenticated by: MELANY BARTON Date: 07/12/2024 13:36
--- OUTSIDE RECORDS SUMMARY | 2024-07-11 15:21 | XMS_ITS | CCD ---
Author Organization [facility] CliniSyar Care Team Providers Care Instrument And Control Technician Name Role Phone Enzo Vasques Unavailable Unavailable [...] Consulting Unavailable Ball, Enzo Unavailable Dr. Dominick Barboas Attending Dolly vailable [place], Dr. Enzo Diallo Primary Care Stephy Barbosa, Dr. Dominick Talavera Attending Dolly vailable Familia, Dr. Dominick Talavera Referring Dolly vailable Virginia, Dr. Enzo Diallo Primary Care Dollyvai christofer Barbosa, Dr. Dominick Talavera Attending Dolly vailable Jeferson Banks, Dr. Yolette Nichols Referring U navailable [place], Dr. Enzo Diallo Primary Care Stephy Vasques, Dr. Enzo Diallo Primary Care Stephy Barbosa, Dr. Dominick Talavera Attending Dolly vailable Familia, Dr. Dominick Talavera Referring Dolly vailable Familia, Dr. Dominick Talavera Referring Dolly vailable [place], Dr. Enzo Diallo Primary Care tSephy Barbosa, Dr. Dominick Talavera Attending Dolly vailable Familia, Dr. Dominick Talavera Attending Dolly Barbosa, Dr. Dominick Talavera Referring Dolly gutierrez Vasques, Dr. Enzo Diallo Primary Care Stephy Barbosa, Dr. Dominick Talavera Attending Dolly Barbosa, Dr. Dominick Talavera Admitting Dolly gutierrez Barbosa, Dr. Dominick Talavera Referring Dolly Vasques, Dr. Enzo Diallo Primary Care Stephy beaulieu [place] SHER, Enzo Diallo Primary Care Provider U negro [place] SHER, Enzo Diallo Primary Care Provider Enzo Vasques DO Primary Care Provider Uziel AIR TWIST OPERATOR-BOOTH CLEANER, Cristiana A Unavailable DOMINICK BARBOSA Attending Unavailable ENZO VASQUES Primary Care Unavailable DOMINICK BARBOSA Attending Unavailable ENZO VASQUES Primary Care Unavailable Kentrell HUBBARD, Ruth Durán Attending Unavailable Allergies Allergy Classification Reported Allergen(s) Allergy Type Date of Onset Reaction(s) Facility (8 sources) bee pollen Allergy to substance (finding) -Otolaryngolog [facility] Work Phone: (1 source) patient allergy list reviewed by nurse or physicia Propensity to adverse reactions 6 Comment:Done [employer] Other Medications Current Medications Medication Drug Class(es) [...] NEEDED. Quantity: 25 Refills: 0 Ordered: 15-May-2023 Domniick Barbosa MD Start : 15-May-2023 Active Problems [...] reviewed this case. Diagnostic interpretation performed at [facility] [address] [place] [id number] Clinical History: Physician Contact Number: [phone] Fixative (A): Saline Fixative (B): Saline Clinical [...] specimen is entirely submitted in 7 cassettes. [facility] B: Received in formalin, labeled with the patient's name and hospital number and B, microdebrider contents , are multiple, irregular segments of blood and soft tissue aggregating to 5.4 x 3.7 x 1.5 cm. Reject Opener And Filler sections are submitted in 8 cassettes [facility] Note: Per the pathologist, the rest of specimen B is submitted in toto in 17 additional cassettes. [facility]/05/19/2023 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 Please feel free to contact my office by calling [phone] with any questions. Provider Impressions 1. 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 Please feel free to contact my office by calling [phone] with any questions. Provider Impressions 1. Inverted [...] day Tylenol TABS Vitals Vital Signs Recorded: [id number] 07:57AM Height6 ft Sgtyzx921 lb 8 oz BMI Iawdqavdta12.81 kg/m2 BSA Calculated2.89 Tobacco Useb) No Falls [...] (Please see procedure below.) SINONASAL ENDOSCOPY (CPT 25848): To better evaluate the patient's symptoms, sinonasal [...] May 27 2023 8:22AM EST (Author) Normal [facility] Tobacco Screening.on 023 Fall risk assessment a) No falls within the last year [facility] 4[facility] Work Phone: Tobacco use status [facility] b) 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 Please feel free to contact my office by calling [phone] with any questions. Provider Impressions 1. 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 Vitals Vital Signs Recorded: [id number] 12:20PM Height6 ft Rkietp285 lb 3.2 oz BMI Awdwislige45.31 kg/m2 BSA Calculated2.91 Tobacco Useb) No PHQ-2 [...] (Please see procedure below.) SINONASAL ENDOSCOPY (CPT 41188): To better evaluate the patient's symptoms, sinonasal [...] signed by : Dominick Barbosa MD; May 20 2023 1:59PM EST (Author) Normal [facility] Tobacco Screening.on 023 Adult depression screening assessment No -[facility] 4100 Work Phone: Fall risk assessment a) No falls within the last year [facility] 4100 Work Phone: Tobacco use status [facility] b) No [facility] 4100 Work Phone: No Panel Informationon 05-15 MG-Otolaryng ology-[facility] 4100 Work Phone: Order Reconciliationon [...] mL Inj_IPRO SolutionGive 4 mg, IntraVenous, ONCE 15-May-2023 16:08 Ondansetron 4 mg/2 mL Inj_IPRO is [...] Assistance Level: (more content not included)... Normal [facility] [place] [facility] Patient Profile - Preop v3on 05-15-2023 Patient Profile - Preop v3 Patient Profile - Preop: Initial Info: Patient DemographicsName: WALE GREY Date: 2000 Address: [address] [place] [address] [facility], [facility] Primary Phone [phone] How to be AddressedDylan Spoken Language PreferredEnglish Stated Reason for Admissioninverted papilloma Primary Contact Name and NumberLenoly, mom [phone] Limitations on Visitors/Phone Callsnone Medications Brought to Hospitalno General Health: Weight in kg185.1 kilogram(s) Weight in rre570 pound(s) Height in feet5 feet Height in braedh43.97 inch(es) Height in cm182.8 centimeter(s) BMI (kg/m2)55.392 square meter Patient or Family Member Reaction to Anesthesiano previous reaction Blood Avoidance/Restrictionsnon e Previous Transfusion Reactionno Health Mgmt: Symptoms/Conditions Managed at Homerespiratory Respiratory Symptoms/Conditionssleep disordered breathing Barriers to Managing Healthnone Relationship/Environ: Lives Withparent(s) Living Arrangementshouse Living Environment Commentsmom Resource/Environmental Concernsnone Anticipated Transition [place] [facility] Anticipated at Transitionnone Tobacco Use: Tobacco [...] 15-May-2023 11:21 by Ginny Cohen (ARELIS) Normal [facility] Surgical Pathology Depar tmenton 05-15-2023 [facility] Surgical Pathology Department Name WALE GREY [...] reviewed this case. Diagnostic interpretation performed at [place] [address] Clinical History: Physician Contact Number: [phone] Fixative (A): Saline Fixative (B): Saline Clinical [...] specimen is entirely submitted in 7 cassettes. [facility] B: Received in formalin, labeled with the patient's name and hospital number and B, microdebrider contents , are multiple, irregular segments of blood and soft tissue aggregating to 5.4 x 3.7 x 1.5 cm. Reject Opener And Filler sections are submitted in 8 cassettes [facility] Note: Per the pathologist, the rest of specimen B is submitted in toto in 17 additional cassettes. [facility]2023 [facility] Department of Pathology [address] [place] [address] Normal [facility] [place] [facility] Comment on above: Performed By: #### U [facility] #### [facility] Surgical Pathology Department [address] [place], [place] [id number] BASIC METABOLIC PANELon 08-0 Anion gap [Moles/Vol] 16 mmol/L Normal 10 - 20 [facility] [place] [facility] Comment on above: Performed By: #### B #### [facility] [address] [place] [address] Calcium [Mass/Vol] 9.8 mg/dL Normal 8.6 - 10.6 [facility] Comment on above: Performed By: #### B MP #### [facility] [address] [place] [address] Chloride [Moles/Vol] 101 mmol/L Normal 98 - 107 [facility] [place] [facility] Comment on above: Performed By: #### B MP #### [facility] [address] [place] [address] Creatinine [Mass/Vol] 0.81 mg/dL Normal 0.50 - 1.30 [facility] [place] [facility] Comment on above: Performed By: #### B MP #### [facility] [address] [place] [address] eGFR MALE >90 Normal >90 [facility] [place] [facility] Comment on above: Result Comment: CALC ULATIONS OF ESTIMATED GFR ARE PERFORMED USING THE 2020 CKD-EPI STUDY REFIT EQUATION WITHOUT THE RACE VARIABLE FOR THE IDMS-TRACEABLE CREATININE METHODS. https://jasn.asnjournals.org/content/early/ASN.56804831 88 Performed By: #### B MP #### [facility] [address] [place] [address] Glucose [Mass/Vol] 81 mg/dL Normal 74 - 99 [facility] Comment on above: Performed By: #### B MP #### [facility] [address] [place] [address] HCO3 (Bld) [Moles/Vol] 27 mmol/L Normal 21 - 32 [facility] [place] [facility] Comment on above: Performed By: #### B MP #### [facility] [address] [place] [address] Potassium [Moles/Vol] 4.5 mmol/L Normal 3.5 - 5.3 [facility] [place] [facility] Comment on above: Performed By: #### B MP #### [facility] [address] [place] [address] Sodium [Moles/Vol] 139 mmol/L Normal 136 - 145 [facility] Comment on above: Performed By: #### B MP #### [facility] [address] [place] [address] Urea nitrogen [Mass/Vol] 13 mg/dL Normal 6 - 23 [facility] [place] [facility] Comment on above: Performed By: #### B MP #### [facility] [address] [place] [address] CBCon 05-12-2023 Erythrocyte distribution width (RBC) [Ratio] 13.0 % Normal 11.5 - 14.5 [facility] [place] [facility] Comment on above: Performed By: #### C BC #### [facility] [address] [place] [address] Hematocrit (Bld) [Volume fraction] 47.2 % Normal 41.0 - 52.0 [facility] [place] [facility] Comment on above: Performed By: #### C BC #### [facility] [address] [place] [address] Hemoglobin (Bld) [Mass/Vol] 14.4 g/dL Normal 13.5 - 17.5 [facility] [place] [facility] Comment on above: Performed By: #### C BC #### [facility] [address] [place] [address] MCHC (RBC) [Mass/Vol] 30.5 g/dL Low 32.0 - 36.0 [facility] [place] [facility] Comment on above: Performed By: #### C BC #### [facility] [address] [place] [address] MCV (RBC) [Entitic vol] 94 fL Normal 80 - 100 [facility] [place] [facility] Comment on above: Performed By: #### C BC #### [facility] [address] [place] [address] NUCLEATED RBC 0.0 /100 WBC Normal 0.0-0.0 [facility] Comment on above: Performed By: #### C BC #### [facility] [address] [place] [address] Platelets (Bld) [#/Vol] 400 10*3/uL Normal 150 - 450 [facility] [place] [facility] Comment on above: Performed By: #### C BC #### [facility] [address] [place] [address] RBC 5.03 x10E12/L Normal 4.50 - 5.90 [facility] Comment on above: Performed By: #### C BC #### [facility] [address] [place] [address] WBC (Bld) [#/Vol] 9.2 10*3/uL Normal 4.4 - 11.3 [facility] Comment on above: Performed By: #### C BC #### [facility] [address] [place] [address] Laboratory - Chemistry and C hemistry - challengeon 05-12-2023 Anion gap [Moles/Vol] 16 mmol/L 10 - 20 MG-Otolaryng ology-[facility] [place] [address] Work Phone: [phone] Calcium [Mass/Vol] 9.8 mg/dL 8.6 - 10.6 MG-[place] laryng ology-[facility] [place] [address] Work Phone: [phone] Chloride [Moles/Vol] 101 mmol/L 98 - 107 MG-Otolaryng ology-[facility] [place] [address] Work Phone: [phone] CO2 [Moles/Vol] 27 mmol/L 21 - 32 MG-Otolar yng ology-Chagri [facility] 4100 Work Phone: [phone] Creatinine [Mass/Vol] 0.81 mg/dL See Below MG-Otolaryng ology-[facility] [place] [address] Work Phone: [phone] Comment on above: Reference Range: 0.5 0 - 1.30 Glucose [Mass/Vol] 81 mg/dL 74 - 99 [facility]-[place] laryng ology-[facility] [place] [address] Work Phone: [phone] Potassium [Moles/Vol] 4.5 mmol/L 3.5 - 5.3 MG-Otolaryng ology-[facility] [place] [address] Work Phone: [phone] Sodium [Moles/Vol] 139 mmol/L 136 - 145 [place] [address] Work Phone: Urea nitrogen [Mass/Vol] 13 mg/dL 6 - 23 [place] [address] Work Phone: Laboratory - Hematology and Cell countson 05-12-2023 Erythrocyte distribution width (RBC) [Ratio] 13.0 % See Below [place] [address] Work Phone: [phone] Comment on above: Reference Range: 11. 5 - 14.5 Hematocrit (Bld) [Volume fraction] 47.2 % See Below [place] [address] Work Phone: [phone] Comment on above: Reference Range: 41. 0 - 52.0 Hemoglobin (Bld) [Mass/Vol] 14.4 g/dL See Below [place] [address] Work Phone: [phone] Comment on above: Reference Range: 13. 5 - 17.5 MCHC (RBC) [Mass/Vol] 30.5 g/dL below low threshold See Below [place] [address] Work Phone: Comment on above: Reference Range: 32. 0 - 36.0 MCV (RBC) [Entitic vol] 94 fL 80 - 100 [place] [address] Work Phone: [phone] Platelets (Bld) [#/Vol] 400 10*3/uL 150 - 450 [place] [address] Work Phone: [phone] RBC (Bld) [#/Vol] 5.03 {x10E12/L} See Below [place] [address] Work Phone: [phone] Comment on above: Reference Range: 4.5 0 - 5.90 WBC (Bld) [#/Vol] 9.2 10*3/uL 4.4 - 11.3 MG-[place] laryng ology-[facility] 4100 Work Phone: No Panel Informationon 05-12 >90 >90 [facility] 4100 Work Phone: Comment on above: CALCULATIONS OF AMANDA MATED GFR ARE PERFORMED USING THE 2020 CKD-EPI STUDY REFIT EQUATION WITHOUT THE RACE VARIABLE FOR THE IDMS-TRACEABLE CREATININE METHODS.https://jasn.asnjournals.org/content//ASN. 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 Provider Impressions 1. Inverted [...] DAILY UNTIL FINISHED. Vitals Vital Signs Recorded: [id number] 01:56PM Height6 ft Uajgba328 lb 9 oz BMI Zfdvquuinm67.63 kg/m2 BSA Calculated2.91 Tobacco Useb) No PHQ-2 [...] Mar 29 2023 3:44PM EST (Author) Normal [facility] Tobacco Screening.on 023 Adult depression screening assessment No [employer]Otolaryn16 [employer] olCarestreamy-[employer] Work Phone: Fall risk assessment a) No falls within the last year [employer] Work Phone: Tobacco use status CPHS b) No [employer]-Otolaryng olCarestreamyZazuba Work Phone: Established Visit (Otolaryng ology)on 01-06-2023 Established Visit (Otolaryngology) Diagnoses/Problems Chronic ethmoidal sinusitis (473.2) (J32.2) Chronic maxillary sinusitis (473.0) (J32.0) Nasal congestion (478.19) (R09.81) 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 Provider Impressions 1. 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 Please feel free to contact my office by calling [phone] with any questions. Provider Impressions 1. Inverted [...] No Reported Medications Vitals Vital Signs Recorded: [id number] 04:13PM Height6 ft Qmeapp490 lb 8 oz BMI Okjpnfyqez77.89 kg/m2 BSA Calculated2.92 Tobacco Useb) No PHQ-2 [...] (Please see procedure below.) SINONASAL ENDOSCOPY (CPT 63655): To better evaluate the patient's symptoms, sinonasal endoscopy is indicated. After discussion of risks and benefits, and topical decongestion and anesthesia,an endoscope was used to perform (more content not included)... Normal [facility] Tobacco Screening.on 023 Adult depression screening assessment No [employer] Work Phone: Fall risk assessment a) No falls within the last year [employer] Work Phone: Tobacco use status [facility] b) No [employer] Work Phone: MRI LSPINE WO CONon 20 22 MRI LSPINE WO CON EXAMINATION: MRI [...] by: ANTONIO WEINSTEIN Date: 2022-07-23 12:04 Normal [facility] XR LSPINE 2_3 VIEWSon 2021 XR LSPINE [...] by: ANTONIO WEINSTEIN Date: 2022-02-18 15:30 Normal [facility] Pathology Reporton Pathology Report [id number]:[address] [facility] Coding Summary.on 08-31-2019 Coding Summary. CODING DATE: 019 FINAL [facility] STATUS: Home (Routine DC) PAYOR: [facility] [place] APC DESCRIPTION 5155 Level 5 Airway Endoscopy ADMIT DX: REASON FOR VISIT DX: J32.4 Chronic pansinusitis FINAL DX: PRINCIPAL: J32.4 Chronic pansinusitis SECONDARY: J34.89 Other specified disorders of nose and nasal sinuses J45.909 Unspecified asthma, uncomplicated G47.30 Sleep apnea, unspecified Z99.89 Dependence on other enabling machines and devices [facility] STAT DESCRIPTION DOCTOR NAME DATE 14989 5155 J1 Nasal/sinus endoscopy, Yolette Govea MD 08/25/2019 surgical with ethmoidectomy; total (anterior and posterior), including sphenoidotomy, with removal of tissue from the sphenoid sinus RT Right side (used to identify procedures performed on the right side of the body) 72689 5155 J1 Nasal/sinus endoscopy, Yolette Govea MD 08/25/2019 surgical, with maxillary antrostomy; with removal of tissue from maxillary sinus RT Right side (used to identify procedures performed on the right side of the body) 38366 5155 J1 Nasal/sinus endoscopyJeferson MD, Hilary H 08/25/2019 surgical, with frontal sinus exploration, including removal of tissue from frontal sinus, when performed RT Right side (used to identify procedures performed on the right side of the body) 42948 Anesthesia for Loyd López Jr., DO 08/25/2019 procedures on nose and accessory sinuses; not otherwise specified NOTE: The code number assigned matches the documented diagnosis and / or procedure in the patient's chart. However, the narrative phrase printed from the coding software may appear abbreviated, or result in slightly different terminology. Revised Coded By: Ngoc Campo Revised Date Saved: 08/31/2019 10:48 am [address] [facility] Main OR Intraoperative Recor don 08-29-2019 Main OR Intraoperative Record IntraOp Document Type FT Summary Primary Physician: Yolette Govea MD Finalized Date/Time: 08/29/19 09:29:47 Pt. Name: WALE GREY/Sex: 2000 Male Med Rec #: [id number] Physician: Yolette Govea MD Financial #: [id number] Pt. Type: A Room/Bed: Admit/Disch: 08/25/19 09:16:00 - 08/25/19 15:30:00 Institution: Case Times FT Entry 1 Patient Times In Room 08/25/19 10:37:00 Out Room 08/25/19 13:03:00 Procedure Times Start 08/25/19 11:00:00 Stop 08/25/19 12:54:00 Anesthesia Times Start 08/25/19 10:37:00 Stop 08/25/19 13:03:00 Last Modified By: Melisa Rg CST 08/25/19 13:05:15 General Comments: 08/26/19 Chart opened to review and send charges Kristy Rg MUCK OPERATOR 08/29/19 Chart opened to review and send charges Kristy Rg CST Case Attendance FT Entry 1 Entry 2 Entry 3 Case Attendee Rene Nava DO, Loyd Govea MD, Yolette Kimball RN, Jomar Morales Role Performed Anesthesiologist of Surgeon - Primary Alarm Installer - Primary Record Time In 08/25/19 10:37:00 08/25/19 10:37:00 08/25/19 10:37:00 Time Out 08/25/19 13:03:00 08/25/19 13:03:00 08/25/19 13:03:00 Procedure ANTROSTOMY TURBINECTOMY ANTROSTOMY TURBINECTOMY ANTROSTOMY TURBINECTOMY ETHMOIDECTOMY IM(Right) ETHMOIDECTOMY IM(Right) ETHMOIDECTOMY IM(Right) Comments out of room from 4025-7430. Last Modified By: Patrick RN, Nelly Nguyen RN, Nelly Robison RN 08/25/19 13:05:43 08/25/19 13:05:43 08/25/19 13:05:43 Entry 4 Entry 5 Entry 6 Case Attendee Patrick INFANTE, Nelly Aguilar MUCK OPERATOR, Enzo Tijerina CST, Sheba Segovia Role Performed Alarm Installer - Primary Scrub - Primary Scrub - Relief Time In 08/25/19 10:37:00 08/25/19 10:37:00 08/25/19 11:40:00 Time Out 08/25/19 13:03:00 08/25/19 13:03:00 08/25/19 12:14:00 Procedure ANTROSTOMY TURBINECTOMY ANTROSTOMY TURBINECTOMY ANTROSTOMY TURBINECTOMY ETHMOIDECTOMY IM(Right) ETHMOIDECTOMY IM(Right) ETHMOIDECTOMY IM(Right) Comments out for lunch at out for lunch at [phone] Last Modified By: Nelly Nguyen RN, RN, [...] Comments Applicable) PreOp Antibiotic No Time Out Rene Nava DO, Loyd, Given Participants Yolette Govea MD, Rehana INFANTE, Patrick Staton RN, Jeff Strauss [...] and tissue Entry 1 Skin Integrity Intact, [place], Warm, and Skin Abnormality No Dry Outcomes [...] related to positioning General Comments: safety strap x2. K.ARELIS Nguyen Patient Care Devices FT Pre-Care Text: [...] 11:42:00 By Rehana INFANTE, Jomar Morales, Breezy MUCK OPERATOR, Jeff Marcano CST, Jeff Giraldo MUCK OPERATOR, Enzo Kimball RN, Nelly Horn RN Outcomes Met? Yes Yes Yes Last Modified By: Nelly Nguyen RN, RN, Jomar Fontenot RN 08/25/19 11:10:00 08/25/19 11:46:28 08/25/19 12:17:06 Entry 4 Procedure(s) ANTROSTOMY TURBINECTOMY ETHMOIDECTOMY IM(Right) Type Final Items Sponges, Sharps Status Correct Time By Patrick INFANTE, Jeff Strauss CST, Enzo Outcomes Met? Yes Last Modified [...] By Loyd López Jr., DO, Krupp RN, Andrea L Patient Status Stable Skin. Condition Intact, [place], Warm, and Dry Airway Maintenance Oxygen in Use? Yes Airway Device Simple Mask Flow Rate 10 L/min Outcomes Met? Yes Last Modified By: Jomar Kimball RN 08/25/19 11:48:09 Post-Care Text: The patient is free from signs and symptoms of injury related to transfer/transport General Comments: handoff report given to pacu nurseLuis Whelan RNcenter medical and lab director Administration FT Pre-Care Text: Verifies allergies, administers prescribed medications and solutions, administers prescribed antibiotic therapy and immunizing agents as ordered, evaluates response to medications Administers prescribed medications and solutions Entry 1 Expiration Date Yes Outcomes Met? Yes Verified Last Modified By: Nelly Nguyen RN 08/25/19 10:03:51 Post-Care Text: The patient received appropriate medication(s) safely administered during the perioperative period For [facility] please see scanned medication reconcilliation form for [...] AIR Quantity 1 Aid PLUS LOWER BODY [[id number]][F] Fluid/Whiting Unit Mistral warming system Setting high/43 degrees Body Site Lower anterior torso Last Modified By: Nelly Nguyen RN 08/25/19 10:05:52 Case Comments Finalized By: Melisa Rg CST Document Signatures Signed By: Nelly Nguyen RN 08/25/19 13:06 ALEXIS Hines RN, Andrea 08/26/19 11:19 Melisa Rg CST 08/29/19 09:[address] [facility] Operative Reporton 11-22-201 9 Operative Report Date [...] Yolette Govea Jr., M.D. aek Dictated: 08/25/2019 #[id number] Typed: 08/26/2019 #[id number] cc: Wiliam Carrillo Jr., M.D. [facility] Comment on above: Result Comment: Elec tronically Signed By: Yolette Govea MD\.br\Date and Time Signed: 08/26/19 09:56 EST Inpatient Patient Summaryon 08-25-2019 Inpatient Patient Summary [facility] Clinical Discharge Instructions PERSON INFORMATION Name: WALE [facility]Y [facility] Admitting Physician: Yolette Govea MD Attending Physician: Yolette Govea MD PCP: ENZO VASQUES DO Discharge Diagnosis: Chronic pansinusitis Comment: PATIENT EDUCATION INFORMATION Instructions: Post Op Patient Instructions - FT (CUSTOM) Medication Leaflets: Follow up: With: Address: When: Yolette Govea [address] [place] [address] Business (1) In 6 days 08/31/2019 Comments: Call for followup appointment MEDICATION LIST Comment: [facility] Main OR PACU I Recordon 08-06 Main OR PACU I Record PACU Phase I Document Type FT Summary Primary Physician: Yolette Govea MD Finalized Date/Time: 08/25/19 13:39:03 Pt. Name: WALE GREY Paul Marroquin/Sex: 2000 Male Med Rec #: [id number] Physician: Yolette Govea MD Financial #: [id number] Pt. Type: A Room/Bed: [place] [address] Admit/Disch: 08/25/19 09:16:27 - Institution: Case Times [...] Phan RN 08/25/19 13:[address] [facility] Main OR PACU II Recordon Main OR PACU II Record PACU Phase II Document Type FT Summary Primary Physician: Yolette Govea MD Finalized Date/Time: 08/25/19 15:29:24 Pt. Name: WALE GREY/Sex: 2000 Male Med Rec #: [id number] Physician: Yolette Govea MD Financial #: [id number] Pt. Type: A Room/Bed: [place] [address] Admit/Disch: 08/25/19 09:16:27 - Institution: Case Times [...] Hager RN 08/25/19 15:[address] [facility] Main OR Preoperative Recordo n 08-25-2019 Main OR Preoperative Record PreOp Document Type FT Summary Primary Physician: Yoletet Govea MD Finalized Date/Time: 08/25/19 11:07:39 Pt. Name: WLAE GREY /Sex: 2000 Male Med Rec #: [id number] Physician: Yolette Govea MD Financial #: [id number] Pt. Type: A Room/Bed: [facility] Admit/Disch: 08/25/19 09:16:27 - Institution: Case Times [...] Signed By: Nelly Nguyen RN 08/25/19 11:07 [facility] Operative Reporton Operative Report Patient: Ministerio GREY Age: 18 years Sex: Male : 2000 Associated Diagnoses: None Author: Yolette Govea MD Postoperative Information Procedure: RT IG microdebrider assisted MMA with r/o tissue, total ethmoidectomy, frontal sinusotomy, sphenoidotomy with r/o tissue Preoperative Diagnosis: Chronic pansinusitis (LHX47-XV J32.4, Working, Medical). Postoperative Diagnosis: Chronic pansinusitis ([id number]-CN J32.4, Discharge, Medical). Performed by: Yolette Govea MD. 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 Specimens Removed: nasal polyp, RT sinus contents, RT sinus sock, RT max sinus tissue, RT sphenoid tissue. Estimated Blood Loss: 100 ml. Medications Complications: None. Normal [facility] Comment on above: Result Comment: Elec tronically Signed By: Yolette Govea MD\.br\Date and Time Signed: 08/25/19 13:21 EST Patient Education - Texton 1 10-25-2018 Patient Education - Text Normal [facility] Coding Summary.on 08-22-2019 Coding Summary. CODING DATE: 019 FINAL [facility] STATUS: Home (Routine DC) PAYOR: Medical [place] [facility] DESCRIPTION 5521 Level 1 Imaging without [...] Saved: 08/22/2019 11:03 am Normal [facility] Auto Diffon 08-19-2019 Basophils/100 WBC (Bld) 1.4 % Normal 0.0-2.[address] [facility] Comment on above: Order Comment: Order Added by Discern Expert. Performed By: #### 2 [id number], [id number], [id number] #### [facility] Laboratory [address] [place] [address] Basophils/Leukocyte s Auto (Bld) [Pure # fraction] 0.2 E9/L Normal 0.0-0.[address] [facility] Comment on above: Order Comment: Order Added by Discern Expert. Performed By: #### 2 007614, [id number], [id number] #### [facility] Laboratory [address] [place] [address] Eosinophils/100 WBC (Bld) 1.1 % Normal 0.0-8.[address] [facility] Comment on above: Order Comment: Order Added by Discern Expert. Performed By: #### 2 409886, 7808878, [id number] #### [facility] [address] [place] [address] Eosinophils/Leukocy carlos Auto (Bld) [Pure # fraction] 0.1 E9/L Normal 0.0-0.[address] [facility] Comment on above: Order Comment: Order Added by Discern Expert. Performed By: #### 2 221554, [id number], [id number] #### [facility] Laboratory [address] [place] [address] Lymphocytes/100 WBC (Bld) 21.2 % Normal 14.0-50.[address] [facility] Comment on above: Order Comment: Order Added by Discern Expert. Performed By: #### 2 419378, 4143409, [id number] #### [facility] Laboratory [address] [place] [address] Lymphocytes/Leukocy carlos Auto (Bld) [Pure # fraction] 2.3 E9/L Normal 1.0-4.[address] [facility] Comment on above: Order Comment: Order Added by Osiel Expert. Performed By: #### 2 164981, 7110888, [id number] #### [facility] [address] [place] [address] Monocytes/100 WBC (Bld) 5.4 % Normal 4.0-14.[address] [facility] Comment on above: Order Comment: Order Added by Osiel Expert. Performed By: #### 2 176354, 9783076, [id number] #### [facility] [address] [place] [address] Monocytes/Leukocyte s Auto (Bld) [Pure # fraction] 0.6 E9/L Normal 0.2-1.[address] [facility] Comment on above: Order Comment: Order Added by Discern Expert. Performed By: #### 2 613912, 7981146, [id number] #### [facility] [address] [place] [address] Neutrophils/100 WBC (Bld) 70.9 % Normal 36.0-75.[address] [facility] Comment on above: Order Comment: Order Added by Osiel Expert. Performed By: #### 2 851004, 2969159, [id number] #### [facility] [address] [place] [address] Neutrophils/Leukocy carlos Auto (Bld) [Pure # fraction] 7.6 E9/L High 2.0-7.[address] [facility] Comment on above: Order Comment: Order Added by Discern Expert. Performed By: #### 2 923214, 9394058, [id number] #### [facility] [address] [place] [address] BUNon 08-19-2019 Urea nitrogen [Mass/Vol] 12 mg/dL Normal 5-[address] [facility] Comment on above: Performed By: #### 2 114620, 0019714, 19754168, 7872711, 3545582 #### [facility] [address] [place] [address] CBC w/ Auto Diffon 9 Erythrocyte distribution width (RBC) [Ratio] 14.1 % Normal 10.9-14.[address] [facility] Comment on above: Performed By: #### 2 447744, 6848099, [id number] #### [facility] [address] [place] [address] Hematocrit (Bld) [Volume fraction] 48.4 % Normal 37.7-49.[address] [facility] Comment on above: Performed By: #### 2 892197, 9956147, 99361612 #### [facility] [address] [place] [address] Hemoglobin (Bld) [Mass/Vol] 16.2 g/dL Normal 13.5-17.[address] [facility] Comment on above: Performed By: #### 2 239382, 3462454, 46274529 #### [facility] [address] [place] [address] MCH (RBC) [Entitic mass] 29.0 pg Normal 27.0-34.[address] [facility] Comment on above: Performed By: #### 2 658322, 2224490, 95663843 #### [facility] [address] [place] [address] MCHC (RBC) [Mass/Vol] 33.6 g/dL Normal 31.4-36.[address] [facility] Comment on above: Performed By: #### 2 732210, 5849426, 01435159 #### [facility] [address] [place] [address] MCV (RBC) [Entitic vol] 86.5 fL Normal 80.0-100.[address] [facility] Comment on above: Performed By: #### 2 748578, 8927760, 08713460 #### [facility] [address] [place] [address] Platelet mean volume (Bld) [Entitic vol] 8.7 fL Normal 6.4-10.[address] [facility] Comment on above: Performed By: #### 2 601996, 0924914, 14694866 #### [facility] [address] [place] [address] Platelets (Bld) [#/Vol] 351.0 E9/L Normal 150.0-500.[address] [facility] Comment on above: Performed By: #### 2 317250, 8035342, 89373807 #### [facility] [address] [place] [address] RBC (Bld) [#/Vol] 5.6 E12/L Normal 4.3-5.[address] [facility] Comment on above: Performed By: #### 2 220034, 7424119, [id number] #### [facility] [address] [place] [address] WBC corrected for nucl RBC Auto (Bld) [#/Vol] 10.7 E9/L Normal 4.0-11.[address] [facility] Comment on above: Performed By: #### 2 277527, 0368586, 67228265 #### [facility] [address] [place] [address] Creatinineon 08-19-2019 Creatinine [Mass/Vol] 0.8 mg/dL Normal 0.5-1.[address] [facility] Comment on above: Performed By: #### 2 485517, 4878472, 57858268, 1018643, 3082579 #### [facility] Laboratory [address] [place] [address], [place] [address] Glucoseon 08-19-2019 Glucose [Mass/Vol] 97 mg/dL Normal 55-[address] [facility] Comment on above: Performed By: #### 2 807732, 6765841, 78070329, 5696987, 9484894 #### [facility] [address] [place] [address] Lyteson 08-19-2019 Anion gap [Moles/Vol] 14 mmol/L Normal 6-[address] [facility] Comment on above: Performed By: #### 2 332983, 7999747, 63000572, 8289513, 9831143 ####[facility] [address] [place] [address] Chloride [Moles/Vol] 104 mmol/L Normal 101-[address] [facility] Comment on above: Performed By: #### 2 575069, 3057215, 96009854, 0403171, 6840903 ####[facility] [address] [place] [address] CO2 [Moles/Vol] 25 mmol/L Normal 21-31 [facility] Comment on above: Performed By: #### 2 411094, 3846096, 47992575, 2551115, 2034640 ####[facility] [address] [place] [address] Potassium [Moles/Vol] 3.5 mmol/L Normal 3.5-5.[address] [facility] Comment on above: Performed By: #### 2 743724, 0035050, 02893057, 8631839, 9441916 ####[facility] [address] [place] [address] Sodium [Moles/Vol] 139 mmol/L Normal 135-[address] [facility] Comment on above: Performed By: #### 2 316175, 8104394, 58787089, 1860390, 8856490 ####[facility] [address] [place] [address] PT & PTTon 08-19-2019 aPTT Coag (PPP) [Time] 35.7 second(s) Normal 25.1-36.[address] [facility] Comment on above: Result Comment: Hepa rin therapeutic range (represented by Anti-Factor Xa activity of 0.2 - 0.4 U/mL) corresponds to PTT of 56.6 - 109.0 sec. Performed By: #### 2 763211, 4138997, 27253883 #### [facility] [address] [place] [address] INR Coag (PPP) [Relative time] 1.0 {INR} [facility] Comment on above: Result Comment: INR results are specifically intended to assess patients stabilized on long-term Anticoagulation therapy suggested INR?s ?Less Intensive Anticoagulation? 2.0 ? 3.0 Conventional Range 3.0 ? 4.5 Performed By: #### 2 028477, 3696660, 46755369 #### [facility] [address] [place] [address] PT Coag (PPP) [Time] 11.6 second(s) Normal 10.2-12.[address] [facility] Comment on above: Performed By: #### 2 314122, 1934445, 51058716 #### [facility] [address] [place] [address] XR Chest 2 Viewson 9 XR Chest [...] Bryan M.D. Transcribed by: JAZMYNE Technologist: ZHANNA Parr [facility] eGFRon 08-19-2019 GFR/1.73 sq M predicted among blacks MDRD (S/P/Bld) [Vol rate/Area] mL/min/{1.73_m2} Normal >=[address] [facility] Comment on above: Order Comment: Order added by Discern Expert. Result Comment: eGFR is race adjusted. AA=. Performed By: #### 2 757617, 3784937, 90669622, 5663678, 7088645 #### [facility] [address] [place] [address] GFR/1.73 sq M predicted among non-blacks MDRD (S/P/Bld) [Vol rate/Area] mL/min/{1.73_m2} Normal >=[address] [facility] Comment on above: Order Comment: Order added by Discern Expert. Result Comment: Nursing Home Social Worker niall kidney disease could be indicated at eGFR's of less than 60 mL/min/1.73m2. Kidney failure is indicated at less than 15 mL/min/1.73m2. Performed By: #### 2 307759, 2694000, 75844121, 6873407, 6931287 #### [facility] Laboratory [address] [place] [address] Coding Summary.on 08-08-2019 Coding Summary. CODING DATE: 019 FINAL [facility] STATUS: Home (Routine DC) PAYOR: Medical [place] APC DESCRIPTION 5522 Level 2 Imaging without [...] Saved: 08/08/2019 12:24 pm Normal [facility] CT Maxillofacial w/o Contras ton 08-07-2019 CT [...] by: JAZMYNE Technologist: YOSEPH Parr [facility] Vital Signs Date Time Vital Sign Value Performing Clinician Facility 06-03-2024 14:050400 Body height 182.25 cm [facility] 06-03-2024 14:05-0400 Body mass index (BMI) [Ratio] 57.3 kg/m2 [facility] 06-03-2024 14:050400 Body weight 190.5 kg [facility] 06-03-2024 14:05-0400 Diastolic blood pressure 91 mm[Hg] [facility] 06-03-2024 14:05-0400 Heart rate 83 /min [facility] 06-03-2024 14:050400 Respiratory rate 12 /min [facility] 06-03-2024 14:05-0400 Systolic blood pressure 146 mm[Hg] [facility] 03-09-2024 15:02-0400 Body height 182.9 cm Dominick Barbosa MD Work Phone: [facility] 03-09-2024 15:02-0400 Body mass index (BMI) [Ratio] 56.32 kg/m2 Dominick Barbosa MD Work Phone: [facility] 03-09-2024 15:02-0400 Body weight 188.38 kg Dominick Barbosa MD Work Phone: [facility] 10-06-2023 12:15-0500 Body height 182.25 cm Enzo Ball Other [employer] [facility] [employer] Other 10-06-2023 12:15-0500 Body mass index (BMI) [Ratio] 54.62 kg/m2 Enzo Ball Other [employer] [facility] [employer] Other 10-06-2023 12:15-0500 Body weight 181.44 kg Enzo Ball Other [facility] [employer] Other 09-02-2023 15:29-0500 Body height 182.9 cm Dominick Barbosa MD Work Phone: [facility] 09-02-2023 15:29-0500 Body mass index (BMI) [Ratio] 54.37 kg/m2 Dominick Barbosa MD Work Phone: [facility] 09-02-2023 15:29-0500 Body weight 181.85 kg Dominick Barbosa MD Work Phone: [facility] 05-27-2023 07:57-0400 Body height 182.88 cm Enzo Luca Ball Work Phone: [facility] 8600 Work Phone: 05-27-2023 07:57-0400 Body mass index (BMI) [Ratio] 55.81 kg/m2 Enzo E Ball Work Phone: RK[facility]rlsxtfpqrzroi[facility] 7807 Work Phone: 05-27-2023 07:57-0400 Body surface area Derived from formula 2.89 m2 Enzo Vasques Work Phone: [facility] 4100 Work Phone: 05-27-2023 07:57-0400 Body weight 186.66 kg Enzo Vasques Work Phone: [facility] 4[address] Work Phone: 05-27-2023 07:57-0400 0 1 Enzo Vasques Work Phone: [facility] 4100 Work Phone: Comment on above: [employer] 05-20-2023 12:20-0400 Body height 182.88 cm Enzo Vasques Work Phone: [facility] [address] Work Phone: 05-20-2023 12:20-0400 Body mass index (BMI) [Ratio] 56.31 kg/m2 Enzo Vasques Work Phone: [facility] [address] Work Phone: 05-20-2023 12:20-0400 Body surface area Derived from formula 2.91 m2 Enzo Vasques Work Phone: [facility] [address] Work Phone: 05-20-2023 12:20-0400 Body weight 188.33 kg Enzo Vasques Work Phone: [facility] [address] Work Phone: 05-15-2023 11:49-0400 Body temperature 96.8 [degF] Dominick Barbosa MD Work Phone: [facility] 05-15-2023 11:49-0400 Diastolic blood pressure 91 mm[Hg] Dominick Barbosa MD Work Phone: [facility] 05-15-2023 11:49-0400 Heart rate 82 /min Dominick Barbosa MD Work Phone: [facility] 05-15-2023 11:49-0400 Respiratory rate 16 /min Dominick Barbosa MD Work Phone: [facility] 05-15-2023 11:49-0400 Systolic blood pressure 139 mm[Hg] Dominick Barbosa MD Work Phone: [facility] 05-15-2023 11:18-0400 Body height 182.8 cm Dominick Barbosa MD Work Phone: [facility] 05-15-2023 11:18-0400 Body mass index (BMI) [Ratio] 55.39 kg/m2 Dominick Barbosa MD Work Phone: [facility] 05-15-2023 11:18-0400 Body weight 185.1 kg Dominick Barbosa MD Work Phone: [facility] 03-18-2023 13:56-0400 Body height 182.88 cm Ezno Vasques Work Phone: MC-Vpnpwktenmrmai-It [address] Work Phone: 03-18-2023 13:56-0400 Body mass index (BMI) [Ratio] 56.63 kg/m2 Enzo Vasques Work Phone: PO-Vhsuchlsclzwyu-Hw [place] Work Phone: 03-18-2023 13:56-0400 Body surface area Derived from formula 2.91 m2 Enzo Vasques Work Phone: DN-Bleeelmyookuwx-Lh [place] Work Phone: 03-18-2023 13:56-0400 Body weight 189.41 kg Enzo Vasques Work Phone: PT-Yirfezqvwqwhhm-Qr [place] Work Phone: 03-18-2023 13:56-0400 0 1 Enzo Segovia Ball Work Phone: NK-Loplkptmnoekzo-Dn [place] Work Phone: Comment on above: [employer] 11-12-2022 16:13-0500 Body height 182.88 cm Enzo Segovia Ball Work Phone: CS-Iikzsxsvuvskxn-Lm [place] Work Phone: 11-12-2022 16:13-0500 Body mass index (BMI) [Ratio] 56.89 kg/m2 Enzo E Ball Work Phone: EA-Fqaxwgmjaqkuft-Sg [place] Work Phone: 11-12-2022 16:13-0500 Body surface area Derived from formula 2.92 m2 Enzo Segovia Ball Work Phone: HT-Xghionpupfhwjq-Pd [place] Work Phone: 11-12-2022 16:13-0500 Body weight 190.29 kg Enzo Segovia Ball Work Phone: CS-Gxmfgkczkczaxy-Nu [place] Work Phone: 11-12-2022 16:13-0500 0 1 Enzo Segovia Ball Work Phone: TU-Szudlayqocybdn-Ax [place] Work Phone: Comment on above: [employer] Encounters Encounter Date Encounter Type Care Provider Facility Start: 07-04-2024 End: 07-04-2024 ambulatory Ruth Pfeiffer MD Facility: [facility] Start: 06-03-2024 Patient encounter status [facility] Start: 06-03-2024 End: 06-03-2024 ambulatory [facility] Work Phone: Start: 06-03-2024 End: 06-03-2024 Encounter for general adult medical examination without abnormal findings [facility] Start: 06-03-2024 End: 06-03-2024 Patient encounter procedure [facility] Work Phone: Start: 03-09-2024 End: 03-09-2024 ambulatory DOMINICK BARBOSA [facility] Ambulatory Start: 03-09-2024 End: 03-09-2024 Office outpatient visit 15 minutes Dominick Barbosa MD Work Phone: [facility] Comment on above: Chronic ethmoidal si nusitis (Primary Dx); Chronic maxillary sinusitis Start: 10-06-2023 End: 10-06-2023 ambulatory Enzo Vasques Other [employer] Other Start: 10-06-2023 Office outpatient vi sit 15 minutes Enzo Vasques [facility] Start: 09-02-2023 End: 09-02-2023 Office outpatient visit 15 minutes Dominick Barbosa MD Work Phone: [facility] Comment on above: Chronic ethmoidal si nusitis (Primary Dx); Other chronic sinusitis; Chronic sphenoidal sinusitis Start: 09-02-2023 End: 09-02-2023 ambulatory DOMINICK Mandel [facility] Start: 06-07-2023 Chart Update Enzo morales Work Phone: [facility] Work Phone: Start: 05-27-[address] Doimnick Cerda Facility:[id number] Start: 05-20-2023 Postop follow up vis it related to original px Enzo Vasques Work Phone: MF[facility]gp[facility]ettwmmnssr[facility] Work Phone: Start: 05-20-[address] Enzo Vasques Facility:[id number] Start: 05-15-2023 End: 05-15-[address] Dominick Barbosa Facility:[facility] Start: 05-15-2023 AUDIT Enzo morales Work Phone: LY[facility]gov[facility]ngmau[facility] 4[facility] Work Phone: Start: 05-15-2023 End: 05-15-2023 Subsequent hospital visit by physician Dominick Barbosa MD Work Phone: [facility] Comment on above: Chronic ethmoidal si nusitis; Benign neoplasm of middle ear, nasal cavity and accessory sinuses; Chronic sinusitis, unspecified Start: 05-12-[address] Dominick Cerda Facility:[facility] Start: 05-12-2023 Encounter for preprocedural laboratory examination Dr. Dominick Barbosa [facility] Start: 03-18-2023 Office outpatient vi sit 15 minutes Enzo Vasques Work Phone: [facility]fbcvpmwvd[facility] Work Phone: Start: 03-18-2023 Patient encounter procedure Enzo Vasques Work Phone: XS-Ddpurotbvqpzjk-[place] Work Phone: Start: 03-18-[address] Dominick Cerda Facility:[id number] Start: 01-07-2023 End: 01-07-2023 ambulatory Enzo Vasques Other [employer] Other Start: 01-07-2023 Telephone encounter Enzo Vasques [facility] Start: 01-06-2023 Office outpatient vi sit 25 minutes Enzo Vasques Work Phone: [facility] Work Phone: Start: 01-06-[address] Dominick Cerda Facility:[id number] Start: 01-05-2023 End: 01-05-2023 ambulatory Enzo Vasques Other [employer] Other Start: 01-05-2023 Office outpatient vi sit 15 minutes Enzo Vasques [facility] Start: 11-19-2022 End: 11-20-[address] DOCTOR PARISI Facility:[facility]1 Start: 11-12-2022 Office outpatient vi sit 25 minutes Enzo Vasques Work Phone: [facility]fdztgpdz[facility] Work Phone: Start: 11-12-2022 Patient encounter procedure Enzo Vasques Work Phone: ZI-Zakpgatdbsmvys-[place] Work Phone: Start: 11-12-[address] Dominick Cerda Facility:[id number] Start: 07-29-2022 End: 08-23-[address] ENZO VASQUES Facility:[facility]1 Start: 07-22-2022 End: 07-23-[address] ENZO VASQUES Facility:[facility]1 Start: 06-24-2022 Well child visit Enzo Vasques Other [employer] [facility] Other Start: 03-20-2022 End: 04-25-[address] [...] 2) Zoste r Vaccines (1 of 2) [facility] Start: 07-13-2024 End: 07-13-2024 Patient encounter procedure 07/13/2024 1:15 PM EDT Office Visit [facility] [address] [place] [address] Dominick Barbosa MD [address] [place] [address] [facility] Start: 06-05-2024 Influenza vaccination Influenz a Vaccine (Season Ended) [facility] Start: 03-09-2024 End: 03-09-2024 Patient encounter procedure 03/09/2024 2:45 PM EDT Office Visit [facility] [address] [place] [phone] Dominick Barbosa MD [address] [place] [address] [facility] Start: 09-02-2023 FUV, Provider: Dominick Barbosa, Status: Pen, Time: 2:45 PM FUV, Provider: Dominick Barbosa, Status: Pen, Time: 2:45 PM [facility] [address] Work Phone: Start: 09-02-2023 End: 09-02-2023 Patient encounter procedure 09/02/2023 2:45 PM EST Office Visit [facility] [address] [facility] [place] [phone] Dominick Barbosa MD [address] [place] [address] [facility] Start: 06-05-2023 COVID-19 Vaccine ( season) COVID-19 Vaccine ( season) [facility] Start: 06-05-2023 Influenza vaccination Influenz a Vaccine (#1) [facility] Start: 05-27-2023 POV, Provider: Dominick Barbosa, Status: Pen, Time: 10:30 AM POV, Provider: Dominick Barbosa, Status: Pen, Time: 10:30 AM RU-Welubpgrcwhfbo-[place] Work Phone: Start: 05-20-2023 POV, Provider: Dominick Barbosa, Status: Pen, Time: 12:30 PM POV, Provider: Dominick Barbosa, Status: Pen, Time: 12:30 PM HZ-Jtxrgfipehrbxe-[place] Work Phone: Start: 12-22-2022 DTaP/Tdap/Td Vaccine s (7 - Td or Tdap) DTaP/Tdap/Td Vaccines (7 - Td or Tdap) [facility] Start: 2022 DTaP/Tdap/Td Vaccine s (1 - Tdap) DTaP/Tdap/Td Vaccines (1 - Tdap) [facility] Start: 03-07-2021 COVID-19 Vaccine (2 - Booster for Isaias series) COVID-19 Vaccine (2 - Booster for Isaias series) [facility] Start: 2018 Hepatitis C screening Hepatitis C [facility] Start: 2015 HPV Vaccines (1 - Ma le 3-dose series) HPV Vaccines (1 - Male 3-dose series) [facility] Start: 2011 HPV Vaccines (1 - Ma le 2-dose series) HPV Vaccines (1 - Male 2-dose series) [facility] Start: 11-28-2004 Varicella vaccination Varicell a Vaccines (2 of 2 - 2-dose childhood series) [facility] Start: 2001 MMR Vaccines (1 of 1 - Standard series) MMR Vaccines (1 of 1 - Standard series) [facility] Start: 2001 Varicella vaccination Varicell a Vaccines (1 of 2 - 2-dose childhood series) [facility] Start: 03-23-2001 COVID-19 Vaccine (#1) COVID-19 Vacci ne (#1) [facility] Start: 2000 Hepatitis B Vaccines (1 of 3 - 3-dose series) Hepatitis B Vaccines (1 of 3 - 3-dose series) [facility] Start: 2000 HIV screening HIV Screening [facility] Start: 2000 Lipid panel Lipid Panel [facility] Start: 2000 Yearly Adult Physical Yearly Adult P hysical [facility] Comprehensive metabo lic 2000 panel - Serum or Plasma [facility] Patient Education Low back pain in adults [facility] Work Phone: [facility] Immunizations Immunization Date Immunization Notes Care Provider Fa cilinoe 09-23-2001 varicella virus vaccine Dominick Barbosa MD Work Phone: [facility] Work Phone: Payers Date Payer Category Payer Unknown 2022 Unknown [id number] 2019 Unknown [id number] 2000 Unknown [id number] 2.16.84 [id number] 2000 Unknown [id number] 2.16.84 [id number] 2000 Unknown [id number] 2.16.84 [id number] 2000 Unknown [id number] 2.16.84 [id number] 2000 Unknown [id number] 2.16.84 0.1.066935.3.579.2.593 2000 Unknown [id number] 2.16. [id number] 2000 Unknown [id number] 2.16. [id number] 2000 Unknown [id number] 2.16. [id number] 2000 Unknown [id number] 2.16. [id number] 2000 Unknown [id number] 2.16. [id number] 2000 Unknown [id number] 2.16. [id number] 2000 Unknown [id number] 2.16. 840.1.888291.3.579.2.356 2000 Unknown [id number] 2.16.8 [id number] 2000 Unknown [id number] 2.16.8 [id number] 2000 Unknown [id number] 2.16. [id number] Social History Date Type Detail Facility Start: 09-02-2023 End: 09-03-2023 Never a smoker Never a smoker [facility]-Kyjuadwxskshqy-Bu [facility]j [facility] Work Phone: Start: 09-02-2023 End: 09-03-2023 Sex Assigned At [facility] Other Tobacco smoking status MDIS Tobacco smoking consumption unknown [facility] Work Phone: Start: 2000 Sex Assigned At Not on file U [facility] Work Phone: Start: 09-02-2023 Tobacco smoking status MDIS Never smoked tobacco [facility] Work Phone: Start: 09-02-2023 Tobacco use and exposure Smokeless tobacco non-user [facility] Work Phone: Start: 08-23-2023 End: 03-09-2024 Exposure to SARS-CoV-2 (event) Not sure [facility] Start: 2000 Sex Assigned At Male F [facility] Clinical Notes 09-04-2020 to 03-09-2024 Dominick Barbosa [...] (Please see procedure below.) SINONASAL ENDOSCOPY (CPT 21291): To better evaluate the patient's symptoms, sinonasal [...] septum 5. Intermittent allergy symptoms Discussion: Wale Grey and I discussed his current exam. I [...] Dominick Barbosa MD. documented in this encounter [facility] Work Phone: 10-06-2023 Evaluation note Encounter [...] index [BMI] 50.0-59.9, adult (ICD-10 - Z68.43) [employer] Other 11-29-2023 History of Present illness Narrative* Dominick Barbosa [...] (Please see procedure below.) SINONASAL ENDOSCOPY (CPT 04525): To better evaluate the patient's symptoms, sinonasal [...] free to contact my office by calling [phone] with any questions. Signature: Scribe Attestation By signing my name below, I, Reina Irvin , Tana attest that this documentation has been prepared under the direction and in the presence of Agustina Barbosa MD. documented in this [facility] Work Phone: 1([phone]) 906-760108-11-2023 NotePost Operative Note: PreOp Diagnosis: Right sinonasal inverted papilloma, chronic sinusitis Post-Procedure Diagnosis: Same Procedure: 1. Right nasal endoscopy with total ethmoidectomy including sphenoidotomy with tissue removal CPT 08157-D-88 2. Right nasal endoscopy with frontal sinusotomy CPT 92518-V 3. Right maxillary endoscopy with tissue removal 57097-Y 4. Extracranial CT image guidance CPT 76909 Surgeon: Familia Resident/Fellow/Other Laborer Livestock: None Anesthesia: GET Estimated Blood Loss (mL): [...] middle turbinate was resected (more content not included)...[facility] 05-15-2023 Miscellaneous Notes* Op Note - Dominick Barbosa MD - 05/15/2023 4:37 PM EDT Post Operative Note: PreOp Diagnosis: Right sinonasal inverted papilloma, chronic sinusitis Post-Procedure Diagnosis: Same Procedure: 1. Right nasal endoscopy with total ethmoidectomy including sphenoidotomy with tissue removal CPT 80661-D-72 2. Right nasal endoscopy with frontal sinusotomy CPT 03847-P 3. Right maxillary endoscopy with tissue removal 96653-D 4. Extracranial CT image guidance CPT 78020 Surgeon: Familia Resident/Fellow/Other Laborer Livestock: None Anesthesia: GET Estimated Blood Loss (mL): [...] 17:00 by Dominick Barbosa) documented in this [facility] Work Phone: 1(236) 325-153208-11-2023 Note* Op Note - Dominick Barbosa MD - 05/15/2023 4:37 PM EDT Post Operative Note: PreOp Diagnosis: Right sinonasal inverted papilloma, chronic sinusitis Post-Procedure Diagnosis: Same Procedure: 1. Right nasal endoscopy with total ethmoidectomy including sphenoidotomy with tissue removal CPT 35576-W-96 2. Right nasal endoscopy with frontal sinusotomy CPT 76467-P 3. Right maxillary endoscopy with tissue removal 14811-G 4. Extracranial CT image guidance CPT 35108 Surgeon: Familia Resident/Fellow/Other Laborer Livestock: None Anesthesia: GET Estimated Blood Loss (mL): [...] Last Updated: 15-May-2023 17:00 by Dominick Barbosa) [facility] Work Phone: 1([phone]) 997-912008-11-2023 History of Present illness Narrative* Wale presents for his first postoperative visit following right-sided sinus surgery in 05/15/23. * Following his surgery he has done well. He has been having some headaches that are controlled with Tylenol. His breathing has been significantly improved. He is rinsing several times per day. He denies significant nasal drainage. [facility] [address] Work Phone: [phone] NoteHistory of Present Illness: History Present Illness: [...] COVID-19 what the risks are. Electronic Signatures: Doimnick Barbosa) (Signed 15-May-2023 11:51) Authored: History of Present Illness, Allergies, Home Medication Review, Impression/Procedure, ERAS, Physical Exam, Consent, Note Completion Last Updated: 15-May-2023 11:51 by Dominick Barbosa)[facility]08-11-2023 History and physical note* Dominick Barbosa MD [...] ross risks related to the risk of ernetta COVID-19 and if they contract COVID-19 what the risks are. Electronic Signatures: Dominick Barbosa) (Signed 15-May-2023 11:51) Authored: History of Present Illness, Allergies, Home Medication Review, Impression/Procedure, ERAS, Physical Exam, Consent, Note Completion Last Updated: 15-May-2023 11:51 by Dominick Barbosa) [facility] Work Phone: 1([phone]) 207-383508-11-2023 History and physical note* Dominick Barbosa MD [...] 11:51 by Dominick Barbosa) [facility]: [phone]) 402-928204-05-2023 Evaluation note* Encounter Date Diagnosis Assessment Notes Treatment Notes Treatment Clinical Notes Jan, Inverted papilloma of nasal cavity (ICD-10 - D14.0) [employer] Other 04-04-2023 Chief complaint Narrative - Reported* [...] 5. Obstructive sleep apnea on positive pressure [facility] [address] Work Phone: [phone] History of Present illness Narrative* Reason for visit: * WALE GREY patient presents since last being seen 01/06/23. * Wale presents for routine follow-up. He is interested in going forward with his inverted papillomaresection and would like to schedule it as soon as there is availability. XC-Imhtvkewykgdxq-Xmqkytjm Work Phone: [phone] History of Present illness Narrative* Reason for visit: * WALE GREY patient presents since last being seen 01/06/23. * Wale presents for routine follow-up. 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 [facility] [address] Work Phone: [phone]) [phone] Evaluation note* Encounter Date Diagnosis Assessment Notes [...] for congestion, Tylenol for pain and fever. [employer] Other 12-01-2020 History of Present illness Narrative* [...] and is using flonase only as needed. FL-Eqbhlqygfduegy-Jknehhwc Work Phone: [phone] History of Present illness Narrative* Reason for [...] well outside of some nasal breathing issues. [facility]hcuvthkdeeo[facility] [address] Work Phone: Evaluation note* Diagnosis Chronic ethmoidal sinusitis Benign neoplasm of middle ear, nasal cavity and accessory sinuses Benign neoplasm of nasal cavities, middle ear, and accessory sinuses Chronic sinusitis, unspecified documented in this encounter [facility] Work Phone: Evaluation note* Diagnosis Chronic ethmoidal sinusitis- Primary Other chronic sinusitis Chronic sphenoidal sinusitis documented in this encounter [facility] Work Phone: Evaluation note* Diagnosis Chronic ethmoidal sinusitis- Primary Chronic maxillary sinusitis documented in this encounter [facility] Work Phone: Evaluation note* Diagnosis Onset Date Resolution Status Bulging lumbar disc acute Elevated BP without diagnosis of hypertension acute Low back pain acute Obesity acute Wellness examination acute [facility] Work Phone: History general Narrative [...] ethmoidectomy 08/25/2019 Hospitalization History see surgical history [employer] Other History of Present illness Narrative* Wale [...] 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 EZ[facility]Bgyntcpwzdxqsz[facility]mm[facility] [address] Work Phone: Summary Purpose Family History No Family History Records FoundUnknown Family Member Name Dates Details Family history [...] jose father Diabetes mellitus Unknown Advance Directives No Advanced Directives Records Found Advance Directive Response Recorded Date/ Time Advance [...] Complaint and Reason for Visit Chief Complaint [facility] Reason for Visit Bulging lumbar disc Elevated BP without diagnosis of hypertension Low back pain Obesity Wellness examination Additional Source Comments (unrecognized sect ion and content) No Status Records FoundNo Status Records FoundNo Status Records FoundNo Status Records FoundNo Status Records FoundNo Status Records Found INFORMATION SOURCE (unrecogn ized section and content) DATE CREATED AUTHOR [facility]/06/2020 [facility] DATE CREATED AUTHOR AUTHOR'S ORGANIZ ATION 11/24/2022 [facility] DATE CREATED AUTHOR AUTHOR'S ORGANIZ ATION 05/28/2023 [employer] DATE CREATED AUTHOR AUTHOR'S ORGANIZ ATION 06/05/2023 [facility] DATE CREATED AUTHOR AUTHOR'S ORGANIZ ATION 03/11/2024 [facility] DATE CREATED AUTHOR AUTHOR'S ORGANIZ ATION 07/08/2024 [facility] REASON FOR VISIT (unrecogniz ed section and content) Reason Comments Other Right endoscopic sin us surgery with image guidance, right endoscopic medial maxillectomy, septoplasty Reason Comments Follow-up Care Teams (unrecognized sec tion and content) Instrument And Control Technician Relationship Specialty Start Date End Date Enzo Vasques DO PCP - General 09/21/19 Instrument And Control Technician Relationship Specialty Start Date End Date Enzo Vasques DO PCP - General 09/21/19 Instrument And Control Technician Relationship Specialty Start Date End Date Enzo Vasques DO PCP - General 09/21/19 Cristiana Triplett APRN-BOOTH CLEANER [address] [place] [address] PCP - Cyndie ENCISO PCP 09/04/23 Team Status: Active Member Role Status Dates Enzo Vasques DO Primary Care Provider Active Team Status: Inactive [...] BE BASED ON THE PRIMARY CLINICAL RECORDS. [facility] [employer] [facility]. provides no warranty or guarantee of the accuracy or completeness of information in this document.
== END 2024-07-11 15:15 | disposition home or self-care (01) ==
LOC: MRI 15:14
PROVIDERS: Family Provider Internal Medicine; PCP Internal Medicine; Visit Provider Anesthesiology
DX: M48.062 Spinal stenosis, lumbar region with neurogenic claudication (principal); M51.369 Other intervertebral disc degeneration, lumbar region without mention of lumbar back pain or lower extremity pain
CPT/HCPCS: 72148

== ENCOUNTER 2024-07-28 13:00 | Outpatient (OUT) | payer BC, SELFPAY ==
--- NOTE | 2024-07-28 14:27 | P.CN_ITS ---
Consult Note: HPI Data of Consult Patient: new to practice Consult date: 07/04/24 Requesting Physician: Shaneka Pena NP Primary Care Provider: Enzo Vasques DO Family Provider: Enzo Vasques DO Consult Narrative Reason for consult: low back, left leg pain Narrative: 23yom who presents for evaluation. 2 year history of low back, left leg pain. previous mri in 2021 shows multilevel disc herniation and ddd. uses tylenol and advil, as needed. denies adverse med side effects. recently completed lumbar MRI with results below. pain today 6/10 increasing with standing and walking, improving with sitting and lying. cc:: CC: Shaneka Pena NP Review of Systems ROS Status of ROS 10 or more systems reviewed and unremark able except as noted in history and below Musculoskeletal Reports: back pain and extremity pain Meds Home Medications and Allergies Home Medications ?Medication ?Instructions ?Recorded ?Confirmed ?Type metformin 850 mg tablet 850 mg PO DAILY 07/04/24 07/04/24 History Allergies Allergy/AdvReac Type Severity Reaction Status Date / Time No Known Drug Allergies Allergy Verified 07/04/24 14:19 Exam Constitutional Documenting provider has reviewed patient's vital signs: yes Common normals: no apparent distress, oriented x3, healthy appearing, alert and well nourished General appearance: cooperative HENMT Common normals: normocephalic, hearing grossly normal bilaterally and moist oral mucous membranes Head and scalp: normocephalic Eye Common normals: PERRL Pupil: PERRL Neck & C-Spine Common normals: full ROM General: normal visual inspection Chest Common normals: inspection of chest normal Respiratory Common normals: normal respiratory effort, no retractions and no use of accessory muscles Back & Pelvis Lumbar spine/lower back: ROM limited, pain with ROM and straight leg raise positive left Other: decreased sensation to left L4/5/S1 strength 5/5 in BLE Extremity Common normals: normal to inspection and full ROM Neuro Common normals: oriented x3, CN's II-XII intact bilaterally, moves all extremities, no focal motor deficits, no sensory deficits noted, deep tendon reflexes 2+ bilaterally and gait normal Sensorium/orientation: alert Motor exam: strength 5/5 throughout and no movement abnormalities noted Psych Common normals: mental status grossly normal, thought process normal, cooperative, affect normal, speech normal and activity/motor behavior normal Speech: normal speech Thought process: normal thought process Results Imaging Lumbar MRI: Attestation: I have reviewed the pertinent imaging results. Radiologist's impression: Stable grade 1 retrolisthesis L4-L5. Stable grade 1 anterolisthesis L5-S1. Remaining vertebral bodies anatomically aligned. Slight progression of mild disc space narrowing L4-L5. No compression fractures. Conus medullaris terminates at L1. No abnormal signal in the distal spinal cord and the conus medullaris. L5-S1: There is stable chronic bilateral L5 pars defect. Slight progression of left foraminal disc extrusion with superior migration. Moderate facet arthropathy. There remains no spinal canal stenosis. Progression of severe left foraminal stenosis. L4-L5: Grade 1 retrolisthesis. Disc bulge with a superimposed central disc extrusion with mild inferior migration, slightly enlarged in size. The herniated disc measures 6 mm in the AP dimension with 6 mm inferior migration. Previously this measured 5 mm in the AP dimension with 4 mm inferior migration. Moderate facet arthropathies. Stable mild thecal sac effacement. Mild right and rqqg-qu-rtsekhvk left neural foraminal stenosis, minimally progressed. L3-L4: Stable disc bulge asymmetric to the right. There remains no spinal canal stenosis. Stable minimal right lateral recess encroachment. L2-L3: Stable disc bulge without spinal canal stenosis. Stable mild bilateral foraminal stenosis. L1-L2: Disc bulge, with a superimposed right subarticular to right far lateral disc protrusion. Mild facet arthropathy. Stable mild to moderate right lateral recess stenosis and mild right foraminal stenosis. T12-L1: Disc bulge, with a right subarticular disc extrusion, with mild inferior migration. Moderate facet arthropathy. Stable mild to moderate spinal canal and asymmetric severe right neural foraminal stenosis. T11-T12: Partially visualized on sagittal images. Stable disc bulge asymmetric to the left with possible mild spinal canal stenosis. Assessment and Plan Assessment and Plan (1) Lumbar disc displacement without myelopathy: (2) Lumbar stenosis with neurogenic claudication: (3) Lumbar spondylosis: (4) Myalgia: Plan patient would like to attempt PT again before proceeding with interventional therapy stop NSAIDs start mobic 7.5mg BID start baclofen 10mg BID PRN pain/spasms educational handout provided on left L4-5 L5-S1 TFESI f/u 6 weeks sooner if needed
--- OUTSIDE RECORDS SUMMARY | 2024-08-03 07:03 | XMS_ITS | CCD ---
Author Organization [facility] CliniSyks Care Team Providers Care Expert Witness Name Role Phone Virginia Enzo Segovia Unavailable Unavailable Unavailable [place], DR GIRALDO Admitting [...] Unavailable Dr. Dominick Barbosa Attending Dolly vailable Virginia, Dr. Enzo Diallo Primary Care Stephy Barbosa, Dr. Dominick Talavera Attending Dolly vailable Familia, Dr. Dominick Talavera Referring Dolly vailable Virginia, Dr. Enzo Diallo Primary Care Dollyvai christofer Barbosa, Dr. Dominick Talavera Attending Dolly vailable Jeferson Banks, Dr. Yolette Nichols Referring U navailable Virginia, Dr. Enzo Diallo Primary Care Teji christofer Coleman, Dr. Enzo Diallo Primary Care Stephy Barbosa, Dr. Dominick Talavera Attending Dolly vailable Familia, Dr. Dominick Talavera Referring Dolly vailable Familia, Dr. Dominick Talavera Referring Dolly vailable Virginia, Dr. Enzo Diallo Primary Care Stephy Barbosa, Dr. Dominick Talavera Attending Dolly vailable Familia, Dr. Dominick Talavera Attending Dolly Barbosa, Dr. Dominick Talavera Referring Dolly Coleman, Dr. Enzo Diallo Primary Care Stephy Barbosa, Dr. Dominick Talavera Attending Dolly Barbosa, Dr. Dominick Talavera Admitting Dolly gutierrez Barbosa, Dr. Dominick Talavera Referring Dolly Coleman, Dr. Enzo Diallo Primary Care Dollyshilpi beaulieu Virginia DO, Enzo Diallo Primary Care Provider U negro Virginia SHER, Enzo Diallo Primary Care Provider Enzo Coleman DO Primary Care Provider Uziel ESPINOSAN-POST TENSIONING IRONWORKER HELPER, Cristiana Jose Unavailable [phone] Kentrell HUBBARD, Ruth Durán Attending Unavailable DOMINICK BARBOSA Attending Unavailable ENZO COLEMAN Primary Care Unavailable DOMINICK BAROBSA Attending Unavailable ENZO COLEMAN Primary Care Unavailable DOMINICK BARBOSA Attending ENZO Pereira Primary Care Unavailable Allergies Allergy Classification Reported Allergen(s) Allergy Type Date of Onset Reaction(s) Facility (8 sources) bee pollen Allergy to substance (finding) -[facility] Work Phone: (1 source) patient allergy list reviewed by nurse or physicia Propensity to adverse reactions 6 Comment:Done [employer] Other Medications Current Medications Medication Drug [...] Start : 12-Nov-2022 End : 18-Mar-2023 Complete metFORMIN hydrochloride 850 mg oral tablet (1 source) Biguanide Start: 06-17-2024 take 1 tablet by mouth in the morning metFORMIN (Glucophage) 850 mg tablet Take 1 tablet (850 mg) by mouth early in the morning.. 06/17/2024 Active mometasone furoate, bulk, 100 % powder (3 sources) Start: 09-03-2023 mometasone furoate, bulk, 100 % powder Indications: Other chronic [...] to pollen] Chronic Other upper respiratory disease (8 sources) Nasal congestion; Translations: [Other disease of nasal cavity and sinuses] 07-21-2024 Episodic Other upper respiratory disease (2 sources) Polyp of nasal cavity; Translations: [Polyp of nasal cavity] Onset: 05-13-2019 Episodic Other upper respiratory infections (20 sources) Chronic ethmoidal sinusitis; Translations: [Chronic ethmoidal sinusitis] Onset: 05-15-2023 Chronic Other upper respiratory infections (6 sources) Acute maxillary sinusitis, unspecified; Translations: [Acute [...] Translations: [ABNORMAL POSTURE] Onset: 03-25-2022 Episodic Unclassified (3 sources) Onset: 09-02-2023 Resolved: 07-13-2024 09-02-2023 Viral infection (1 source) COVID-19 Results Test Name Value Interpretation Reference Range Facility Surgical pathology studyOrde red By: Shakir Ford on 07-19-2024 Laboratory comment Pasquale (Report) h0uruKQjNUTsy4izXCIduKAoC zEwMzNcZnRuYmpcdWMxIHtccn WxOXswk0LcP9IeDaTyEXzyizN dQIByRgicrotmGVBbJQH5oxPs VJTfNRfyZLTeBJhjTr4mtZApm NeuOqKkHXGiy9hjluCQVZboCA ODFPg8v0ydBCFeCsD7tXGhHEr oF4iurlDhaIYvT3Pif1AeGAu5 xD53JWElmV9udQZlMUsvnfYoU wO5HUcbLIUcYrN8KVBhnNHcOY JqR5moEXTwHCrrBVAlQWwdaXU zXWW5eZmea4Z3tWXluBFpbNxr QdXhTuRwPjFIy4MsRCx8cSfbO 6MyCPOpGpX9rFTpCGUdPYybXP TeMZRgllX1tK74HGuszfN0bWR fo2Hby01ji550bV8vyNVnONL1 PGRrCIDrfLOvJTApDZK8ZDAxv UJwH6sbAwOxoHDvJ2IkWfLjxF SpO0IeSjPdaTKgR7YsDwMiuNM hSWGyiZY7WZgwy515GCC3OkWg RH0bE7Lnc4S8fD9pnCSsKQOfo VIfAwWgCKNwtg4wuGFgTUhpn3 XhMMM3lmV1sJPwtOOsFGCoED3 5Jsiuw2RiPhysVJF8LPEabmVg a4Iwl0bdKmHmwqQdW8sfI2EdV PUxOZKzEFEsQwSpceRwx3Zbg8 SbvGXnpXb7z6ysWIOlOIHpeMy xe1nnEIM4MGKhP1C3rIBoj8dy BMjcHTEnuNQ9mrJ7IYmjWUTsm kA7dbR7HYolUJHlvDN5uvZ9GY ohAEYdVvH5gdY1KMhlCYFbKNM 5JaXaYJLmj2UipilzMjJrf7Tu aZDsIRihP22xf149ZSOfxeVdW 1xwbGFpblxwbGFpblxmMFxmcz D8ENKsPYBoIOlqVXWyTYEzSfD cbGFuZzEwMzNcaGljaFxmMVxk NpUjIGAkOKtaD0fsSsQcMrWfL BROdZD7eJFzj5bhrvT5eRExTQ 3qWSQieLHhmiKeb0H7PLW4fEP znW6sgCSeADDtiSGmghDrmi09 nIFfiLQ8VHSyDOPgrWKucB6gM WSaJWYNoU1euEMEurRhpfSqJQ WphXkutw6EvDUzec0zgSFbU8A ydGlmaWVzIHRoYXQgdGhleSBo WBXxJLWrhctnk3SwLGUtvAJvX 0WvOX5hQQEmml13 [facility] Work Phone: Pathology report Cancer Narrative Surgical Pathology Case: [id number] Authorizing Provider: Dominick Barbosa MD Collected: 07/13/2024 1401 Ordering Location: [facility] Received: 07/13/2024 1405 Pathologist: Shakir Ford DDS Specimen: NASAL MASS RIGHT BIOPSY [facility] Work Phone: Pathology report final diagnosis Narrative x1btpJNrITElkSSrTLijAmzkr eSbILYvkNAoU3KivxmaLQtlZQ 3zYK4vePvixIPhbVBnUISwHhU gn1oid773wAIvu9ixSDEPssem fIc7wCneC72tx5T0IdyyT1byX NGnXNzmQNDwNPvsxSSeHBl2HD BhcGVydzEyMjQwXHBhcGVyaDE 1ZNSoNR5vfapfEXyyUNwoBTTt xqP3BXBhnGOrD7XdMZZdHB7wr abkPGM5OPksEWVtEZH6BuPvEI Vra4Qjptq1UeYnjSf2l9naMKB kNEOtzMxui4ubFFA4CQSspCRm I8icjI8qQOUuME8ajrfyg5rfV HruTSkhUIJxcPQ6yqL8JNWgmZ OaZ0ZtqD7xKVFqICKfyaFwpKv exP8iItOnCisdJhGdMkFyKYde O5R4nGH1CVBrqBeisRBvWPJlZ VUwoA4yd1l4CKZfhzgpelHws1 aeCMSbzh7dFHAivEVdcLQuv5M zZH2fPJBnvj4arXAwpA5zsFJh hMK4dB0xEUvyeIhjFICneTR6g 0TySYJ3cr8kJHawP90vv1klwK EygNL7aMFsVXRwan3qNNLypOO agmMbRR6hGDSmjsgwyE8xtTEy XHBhcn0= [facility] Work Phone: Pathology report gross observation Narrative u3pfuDOhSSUffZGBEFX0GCToS E6hdVpguQo9iFfeITXnxfX3uN OgIFyce2aaOHE8u7gugsSBBmv lIPBlCU3uVScdTOKePT0qSnVm XGRlZmYxXHBhcGVydzEyMjQwX ZIxlQPqnZK9ISYbWY8djjsjAF mmCVzdZYBdrgB9BWRvnVHzY3N sGOFmYL9zxvkzXJX6VYQDZjyh Ui4prSUtxMPUYpwsJqJlErPgL OBoWDQeVHKmd3bntzCGGErwQM XNMEd2WNd1ZSZhKXJlnCFhw6M 7HWnmb0lfy3MtLDUnVQr1vX8A OxclRCY9RAMMWwnyXsyblVgwf 2VjdCBcXHNnIFxcaWQgNTEwMD OlDSvtJeJLDdQhAxMqUGK9WTi 6AjJdSPa6KWkwFmIRKEO2LMm3 ZznrMSd7ENlzESjgyJBaZKSbY NMgAIVcRWusgrB8r7fmTUBcrR JwMFO8COeaq3ofTNdwDPW7PRD eNtMlAZOtOU2MJfMpUPG5WrC8 FpryGtW2EQw5CLQBLxKaLjBhY RGwFwz0WKgeJHi7RWl4EOuQAv AaBBG8YaKmDBXqHPE3PRD1ABe iiaoaVVv1PYVgYRfeirOrQQca YbplZCnuB71wdYDtJFERPwfsx GFpblxlcGljTmVzdERvYzEgDQ eobWFaqUWfBX9ENSa2ccZgNLG zHXUtYmSpQQlgUhYgABf6VWOx tD9zNs1woURisR1tTIgiGbPlG SCoi9x8dBS7sRYhdRB9tBPnuP xjHM2mgJFfYZ0hXIgcc5QxvNQ bVB54tFLknhEohrXvEy1fs7Lg JF6sl2OuFcezdNN7ZJLpG8t4G jjiWTPiCN09kSYabCrjIBKpzj QdA2XyQTNec7CfzLCgdGMjh5J gdGFuLXdoaXRlIHNvZnQgdGlz e6BcTSFxO1SnD8K9qN7sFCHfL OMpXRD3WVDkPkQ3RIWdUNVziD 9bDHNvEGZwdJTowP7hsuTjleD pwQQstKM4XTJdvN8laN14omMx cvNqefJgA4Wuf2W5eZEcLMIla hOELkoqCDPiDJHahQTKw2WmZW QLExKQMu7TCECwtRXLDLK9SO4 oPEsvFQVlX7ChI5FolaH5b6yf yTtni3YleIAdJP0mbXLpLT6ES VNkprGlBIdteDcdaF1kPJk9 [facility] Work Phone: Pathology report relevant history Narrative f2blvUNgGCFss2xnIQEteVEwO zRvFiGjHyNpKnz4NEOkdpB8Vy r0CPIhQXvmqN9oDTQxVRsnZ8t udhWsuPTbDJKfWZz7pE3jzEhw eQ2zDwGqPmCoDJPpdNAurfeaD R5wbMnfgACnwVHyxF59w7u1sV NccGFyIH0= [facility] Work Phone: Resident Review h9lybPSpUOXgzQGnFUai Mlxhb sDoFGDcxQUaF5CvxdrfCEedXP 4rNQ5wmFqviERadZYjSRBbEuH jz5jhe193kMIhh3ewGLPZvkph aZa1oBduZ66io9I8WmltC44im CPyVCX3VFQjJNUreEEgITMsCJ B3VINcuXNxT1egDUZdWN2dsde tDWgqJWwjILHdnEL3PCMyeSHj N2LdPGRgHSuhCHTdwek0NiUjM j8rdEKacTymDNjuSCFnITBvRA msGNZtUgOvTJbaDHmsf4RwMAU kUL7cujRmbQVbg1Hwi9HoVyOi aQ7ehQ1eujU5THZaOHQzpauxq 4SyWGswXUTrfjc4pbC8iM4aSB shjDyjeZV1gE5pf9o5VWOqa0u jSE42ENUYSA2ogFUcS6NejJ5f YIMKVH4syVRgMNSqvjZfqWMtw Q== [facility] Work Phone: [facility] Work Phone: Surgical pathology studyon 1 Surgical pathology study Pathology report.total SEE COMMENT Surgical Pathology Case: [id number] Authorizing Provider: Dominick Barbosa MD Collected: 07/13/20241404 Ordering Location: [facility] Received: 07/13/20241404 Pathologist: Shakir Ford DDS Specimen: NASAL MASS RIGHT BIOPSY Path report.final diagnosis SEE COMMENT Nasal cavity, right mass, biopsy: - Sinonasal mucosa and chronic inflammation with edematous stroma, consistent with sinonasal inflammatory polyp. Laboratory comment By the signature on this report, the individual or group listed as making the Final Interpretation/Diagnosis certifies that they have reviewed this case. RESIDENT REVIEW The gross and/or microscopic findings were reviewed in conjunction with pathology resident, Adela Shannon MD. Path report.relevant Hx chronic maxillary sinusitis Path report.gross observation SEE COMMENT A: Received in formalin, labeled with the patient's name and hospital number and nasal mass biopsy right , are multiple, irregular segments of villagran-white soft tissue aggregating to 1.9 x 1.2 x 0.5 cm. The specimen is submitted in toto in one cassette. [facility] SURGICAL PATHOLOGY RESULTSon 06-04-2023 Pathology Report Name [place] Pathologist: LUBA JEFFERS DMD. Date of Procedure: [...] reviewed this case. Diagnostic interpretation performed at [facility] [address] [facility] [address] Clinical History: Physician Contact Number: [id number] Fixative (A): Saline Fixative (B): Saline Clinical [...] specimen is entirely submitted in 7 cassettes. [facility] B: Received in formalin, labeled with the patient's name and hospital number and B, microdebrider contents , are multiple, irregular segments of blood and soft tissue aggregating to 5.4 x 3.7 x 1.5 cm. Card Placer sections are submitted in 8 cassettes [facility] Note: Per the pathologist, the rest of specimen B is submitted in toto in 17 additional cassettes. 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 Please feel free to contact my office by calling [phone] with any questions. Provider Impressions 1. Inverted [...] (Please see procedure below.) SINONASAL ENDOSCOPY (CPT 61411): To better evaluate the patient's symptoms, sinonasal [...] free to contact my office by calling [phone] with any questions. Provider Impressions 1. Inverted [...] day Tylenol TABS Vitals Vital Signs Recorded: [id number] 07:57AM Height6 ft Dbfbjp027 lb 8 oz BMI Menoxhmals41.81 kg/m2 BSA Calculated2.89 Tobacco Useb) No Falls [...] (Please see procedure below.) SINONASAL ENDOSCOPY (CPT 56319): To better evaluate the patient's symptoms, sinonasal [...] May 27 2023 8:22AM EST (Author) Normal [facility] Tobacco Screening.on 023 Fall risk assessment a) No falls within the last year [facility] Work Phone: Tobacco use status CPHS b) 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 Please feel free to contact my office by calling [phone] with any questions. Provider Impressions 1. Inverted [...] asked him to reach out to my flight follower and we discussed some time parameters today. [...] TIMES DAILY NEEDED. Vitals Vital Signs Recorded: [id number] 12:20PM Height6 ft Ogiqsr639 lb 3.2 oz BMI Frgiehwvsy04.31 kg/m2 BSA Calculated2.91 Tobacco Useb) No PHQ-2 [...] (Please see procedure below.) SINONASAL ENDOSCOPY (CPT 77104): To better evaluate the patient's symptoms, sinonasal [...] May 20 2023 1:59PM EST (Author) Normal [facility] Tobacco Screening.on 023 Adult depression screening assessment No -[facility] Work Phone: Fall risk assessment a) No falls within the last year -[facility] Work Phone: Tobacco use status CPHS b) No -[facility] Work Phone: No Panel Informationon 05-15 -Otolaryng 4100 Work Phone: Order Reconciliationon 05-15 Order [...] Assistance Level: (more content not included)... Normal [facility] Patient Profile - Preop v3on 05-15-2023 Patient Profile - Preop v3 Patient Profile - Preop: Initial Info: Patient DemographicsName: WALE MI Date: 2000 Address: [facility] [place] Primary Phone [phone] How to be AddressedDylan Spoken Language PreferredEnglish Stated Reason for Admissioninverted papilloma Primary Contact Name and Numbereve Stern [phone] Limitations on Visitors/Phone Callsnone Medications Brought to Hospitalno General Health: Weight in kg185.1 kilogram(s) Weight in rbi874 pound(s) Height in feet5 feet Height in yldvtm31.97 inch(es) Height in cm182.8 centimeter(s) BMI (kg/m2)55.392 square meter Patient or Family Member Reaction to Anesthesiano previous reaction Blood Avoidance/Restrictionsnon e Previous Transfusion Reactionno Health Mgmt: Symptoms/Conditions Managed at Homerespiratory Respiratory Symptoms/Conditionssleep disordered breathing Barriers to Managing Healthnone Relationship/Environ: Lives Withparent(s) Living Arrangementshouse Living Environment Commentsmom Resource/Environmental Concernsnone [facility] Anticipated at Transitionnone Tobacco Use: Tobacco [...] Information Last Updated: 15-May-2023 11:21 by Ginny Cohen) Normal [facility] Surgical Pathology Depar [facility] 05-15-2023 [facility] Surgical Pathology Department Name [place] Pathologist: LUBA JEFEFRS DMD. Date of Procedure: 05/15/2023 Date Received: [...] reviewed this case. Diagnostic interpretation performed at [address] [address] Clinical History: Physician Contact Number: [id number] Fixative (A): Saline Fixative (B): Saline Clinical [...] specimen is entirely submitted in 7 cassettes. [facility] B: Received in formalin, labeled with the patient's name and hospital number and B, microdebrider contents , are multiple, irregular segments of blood and soft tissue aggregating to 5.4 x 3.7 x 1.5 cm. Card Placer sections are submitted in 8 cassettes [facility] Note: Per the pathologist, the rest of specimen B is submitted in toto in 17 additional cassettes. [facility] Department of Pathology [address] [place] [address] Normal [facility] Comment on above: Performed By: #### U HCS #### [facility] Surgical Pathology Department [address] [facility] [address] BASIC METABOLIC PANELon 08-0 Anion gap [Moles/Vol] 16 mmol/L Normal 10 - 20 [facility] Comment on above: Performed By: #### B MP #### [place] [address] [facility] [place] [address] Calcium [Mass/Vol] 9.8 mg/dL Normal 8.6 - 10.6 [facility] Comment on above: Performed By: #### B MP #### [place] [id number] [place] [address] Chloride [Moles/Vol] 101 mmol/L Normal 98 - 107 [facility] Comment on above: Performed By: #### B MP #### [place] [address] [place] [address] Creatinine [Mass/Vol] 0.81 mg/dL Normal 0.50 - 1.30 [facility] Comment on above: Performed By: #### B MP #### [facility] [address] [place] [address] eGFR MALE >90 Normal >90 [facility] Comment on above: Result Comment: CALC ULATIONS OF ESTIMATED GFR ARE PERFORMED USING THE 2020 CKD-EPI STUDY REFIT EQUATION WITHOUT THE RACE VARIABLE FOR THE IDMS-TRACEABLE CREATININE METHODS. https://jasn.asnjournals.org/content/early/ASN.81160016 88 Performed By: #### B MP #### [facility] [address] [place] [address] Glucose [Mass/Vol] 81 mg/dL Normal 74 - 99 [facility] Comment on above: Performed By: #### B MP #### [facility] [address] [place] [address] HCO3 (Bld) [Moles/Vol] 27 mmol/L Normal 21 - 32 [facility] Comment on above: Performed By: #### B MP #### [facility] [address] [place] [address] Potassium [Moles/Vol] 4.5 mmol/L Normal 3.5 - 5.3 [facility] Comment on above: Performed By: #### B MP #### [facility] [address] [place] [address] Sodium [Moles/Vol] 139 mmol/L Normal 136 - 145 [facility] Comment on above: Performed By: #### B MP #### [facility] [address] [place] [address] Urea nitrogen [Mass/Vol] 13 mg/dL Normal 6 - 23 [facility] Comment on above: Performed By: #### B MP #### [facility] [address] [place] [address] CBCon 05-12-2023 Erythrocyte distribution width (RBC) [Ratio] 13.0 % Normal 11.5 - 14.5 [facility] Comment on above: Performed By: #### C BC #### [facility] [address] [place] [address] Hematocrit (Bld) [Volume fraction] 47.2 % Normal 41.0 - 52.0 [facility] Comment on above: Performed By: #### C BC #### [facility] [address] [place] [address] Hemoglobin (Bld) [Mass/Vol] 14.4 g/dL Normal 13.5 - 17.5 [facility] Comment on above: Performed By: #### C BC #### [facility] [address] [place] [address] MCHC (RBC) [Mass/Vol] 30.5 g/dL Low 32.0 - 36.0 [facility] Comment on above: Performed By: #### C BC #### [facility] [address] [place] [address] MCV (RBC) [Entitic vol] 94 fL Normal 80 - 100 [facility] Comment on above: Performed By: #### C BC #### [facility] [address] [place] [address] NUCLEATED RBC 0.0 /100 WBC Normal 0.0-0.0 [facility] Comment on above: Performed By: #### C BC #### [facility] [address] [place] [address] Platelets (Bld) [#/Vol] 400 10*3/uL Normal 150 - 450 [facility] Comment on above: Performed By: #### C BC #### [facility] [address] [place] [address] RBC 5.03 x10E12/L Normal 4.50 - 5.90 [facility] Comment on above: Performed By: #### C BC #### [facility] [address] [place] [address] WBC (Bld) [#/Vol] 9.2 10*3/uL Normal 4.4 - 11.3 [facility] Comment on above: Performed By: #### C BC #### [facility] [address] [place] [address] Laboratory - Chemistry and C hemistry - challengeon 05-12-2023 Anion gap [Moles/Vol] 16 mmol/L 10 - 20 [facility]-Otolaryng ology-[place] [address] Work Phone: [phone] Calcium [Mass/Vol] 9.8 mg/dL 8.6 - 10.6 [facility] laryng ology-[place] [address] Work Phone: [phone] Chloride [Moles/Vol] 101 mmol/L 98 - 107 [facility]-Otolaryng ology-[place] [address] Work Phone: [phone] CO2 [Moles/Vol] 27 mmol/L 21 - 32 MG-Otolar yng ology-[place] [address] Work Phone: [phone] Creatinine [Mass/Vol] 0.81 mg/dL See Below [facility]-Otolaryng ology-[place] [address] Work Phone: [phone] Comment on above: Reference Range: 0.5 0 - 1.30 Glucose [Mass/Vol] 81 mg/dL 74 - 99 [facility] laryng ology-[place] [address] Work Phone: [phone] Potassium [Moles/Vol] 4.5 mmol/L 3.5 - 5.3 [facility]-Otolaryng ology-[place] [address] Work Phone: [phone] Sodium [Moles/Vol] 139 mmol/L 136 - 145 [facility] laryng ology-[place] [address] Work Phone: [phone] Urea nitrogen [Mass/Vol] 13 mg/dL 6 - 23 [facility]-Otolaryng ology-[place] [address] Work Phone: [phone] Laboratory - Hematology and Cell countson 05-12-2023 Erythrocyte distribution width (RBC) [Ratio] 13.0 % See Below [facility]-Otolaryng ology-[place] [address] Work Phone: Comment on above: Reference Range: 11. 5 - 14.5 Hematocrit (Bld) [Volume fraction] 47.2 % See Below [place] [address] Work Phone: Comment on above: Reference Range: 41. 0 - 52.0 Hemoglobin (Bld) [Mass/Vol] 14.4 g/dL See Below [place] [address] Work Phone: Comment on above: Reference Range: 13. 5 - 17.5 MCHC (RBC) [Mass/Vol] 30.5 g/dL below low threshold See Below [place] [address] Work Phone: Comment on above: Reference Range: 32. 0 - 36.0 MCV (RBC) [Entitic vol] 94 fL 80 - 100 [place] [address] Work Phone: Platelets (Bld) [#/Vol] 400 10*3/uL 150 - 450 [place] [address] Work Phone: RBC (Bld) [#/Vol] 5.03 {x10E12/L} See Below [place] [address] Work Phone: Comment on above: Reference Range: 4.5 0 - 5.90 WBC (Bld) [#/Vol] 9.2 10*3/uL 4.4 - 11.3 [place] [address] Work Phone: No Panel Informationon 05-12 >90 >90 [place] [address] Work Phone: Comment on above: CALCULATIONS OF AMANDA MATED GFR ARE PERFORMED USING THE 2020 CKD-EPI STUDY REFIT EQUATION WITHOUT THE RACE VARIABLE FOR THE IDMS-TRACEABLE CREATININE METHODS.https://jasn.asnjournals.org/content//ASN. 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 Provider Impressions 1. Inverted [...] of Present Illness Reason for visit: [place] patient presents since last being seen 01/06/23. [...] DAILY UNTIL FINISHED. Vitals Vital Signs Recorded: 18Mar2023 01:56PM Height6 ft Gkpyjn349 lb 9 oz BMI Uvgnmfzbfg69.63 kg/m2 BSA Calculated2.91 Tobacco Useb) No PHQ-2 [...] Screening.on 023 Adult depression screening assessment No -Otolarparamjit [facility] Work Phone: Fall risk assessment a) No falls within the last year -Jennifer [facility] Work Phone: Tobacco use status [facility] b) No [employer] Work Phone: Established Visit (Otolaryng ology)on 01-06-2023 Established Visit (Otolaryngology) Diagnoses/Problems Chronic ethmoidal sinusitis (473.2) (J32.2) Chronic maxillary sinusitis (473.0) (J32.0) Nasal congestion (478.19) (R09.81) 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 Provider Impressions 1. 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 Please feel free to contact my office by calling [phone] with any questions. Provider Impressions 1. Inverted [...] of Present Illness Reason for visit: [facility] patient presents since last being seen 09/04/20. [...] No Reported Medications Vitals Vital Signs Recorded: [id number] 04:13PM Height6 ft Hlyoge059 lb 8 oz BMI Wrpyutrkiz59.89 kg/m2 BSA Calculated2.92 Tobacco Useb) No PHQ-2 [...] (Please see procedure below.) SINONASAL ENDOSCOPY (CPT 40262): To better evaluate the patient's symptoms, sinonasal endoscopy is indicated. After discussion of risks and benefits, and topical decongestion and anesthesia,an endoscope was used to perform (more content not included)... Normal Barcoding Tobacco Screening.on 023 Adult depression screening assessment No [employer] Work Phone: Fall risk assessment a) No falls within the last year [employer] Work Phone: Tobacco use status CPHS b) No [employer] Work Phone: MRI LSPINE WO CONon 07-23-20 [...] by: ANTONIO WEINSTEIN Date: 2022-07-23 12:04 Normal [facility] XR LSPINE 2_3 VIEWSon 2021 XR LSPINE [...] by: ANTONIO WEINSTEIN Date: 2022-02-18 15:30 Normal [facility] Pathology Reporton 0 Pathology Report [id number]:[address] [facility] Coding Summary.on 08-31-2019 Coding Summary. CODING DATE: 019 FINAL [facility] STATUS: Home (Routine DC) PAYOR: [facility] [place] [facility] DESCRIPTION 5155 Level 5 Airway Endoscopy ADMIT DX: REASON FOR VISIT DX: J32.4 Chronic pansinusitis FINAL DX: PRINCIPAL: J32.4 Chronic pansinusitis SECONDARY: J34.89 Other specified disorders of nose and nasal sinuses J45.909 Unspecified asthma, uncomplicated G47.30 Sleep apnea, unspecified Z99.89 Dependence on other enabling machines and devices PYMT PROC APC STAT DESCRIPTION DOCTOR NAME DATE 08549 5151 J1 Nasal/sinus endoscopy, Jeferson HUBBARD, Yolette Ureña 08/25/2019 surgical with ethmoidectomy; total (anterior and posterior), including sphenoidotomy, with removal of tissue from the sphenoid sinus RT Right side (used to identify procedures performed on the right side of the body) 50197 5155 J1 Nasal/sinus endoscopy, Yolette Govea MD 08/25/2019 surgical, with maxillary antrostomy; with removal of tissue from maxillary sinus RT Right side (used to identify procedures performed on the right side of the body) 42794 5155 J1 Nasal/sinus endoscopy, Yolette Govea MD 08/25/2019 surgical, with frontal sinus exploration, including removal of tissue from frontal sinus, when performed RT Right side (used to identify procedures performed on the right side of the body) 98886 Anesthesia for Loyd López Jr., DO 08/25/2019 procedures on nose and accessory sinuses; not otherwise specified NOTE: The code number assigned matches the documented diagnosis and / or procedure in the patient's chart. However, the narrative phrase printed from the coding software may appear abbreviated, or result in slightly different terminology. Revised Coded By: Ngoc Campo Revised Date Saved: 08/31/2019 10:[address] [facility] Main OR Intraoperative Recor don 08-29-2019 Main OR Intraoperative Record IntraOp Document Type FT Summary Primary Physician: Yolette Govea MD Finalized Date/Time: 08/29/19 09:29:47 Pt. Name: WALE MI/Sex: 2000 Male Med Rec #: [id number] Physician: Yolette Govea MD Financial #: [id number] Pt. Type: A Room/Bed: [place] [address] Admit/Disch: 08/25/19 09:16:00 - 08/25/19 15:30:00 Institution: [...] opened to review and send charges Kristy Arcenio [employer]ONGUE AND [employer]OOVE MACHINE FEEDER Case Attendance FT Entry 1 Entry 2 Entry 3 Case Attendee Rene Nava DO, Loyd Govea MD, Yolette Kimball RN, Jomar Morales Role Performed Anesthesiologist of Surgeon - Primary Central Control Room Operator - Primary Record Time In 08/25/19 10:37:00 08/25/19 10:37:00 08/25/19 10:37:00 Time Out 08/25/19 13:03:00 08/25/19 13:03:00 08/25/19 13:03:00 Procedure ANTROSTOMY TURBINECTOMY ANTROSTOMY TURBINECTOMY ANTROSTOMY TURBINECTOMY ETHMOIDECTOMY IM(Right) ETHMOIDECTOMY IM(Right) ETHMOIDECTOMY IM(Right) Comments out of room from [phone]. Last Modified By: Patrick INFANTE, Nelly Nguyen RN, Nelly Robison RN 08/25/19 13:05:43 08/25/19 13:05:43 08/25/19 13:05:43 Entry 4 Entry 5 Entry 6 Case Attendee Patrick INFANTE, Nelly Aguilar [employer]UE [employer]OOVE MACHINE FEEDER, Enzo Tijerina TONGUE AND GROOVE MACHINE FEEDER, Sheba Segovia Role Performed Central Control Room Operator - Primary Scrub - Primary Scrub - Relief Time In 08/25/19 10:37:00 08/25/19 10:37:00 08/25/19 11:40:00 Time Out 08/25/19 13:03:00 08/25/19 13:03:00 08/25/19 12:14:00 Procedure ANTROSTOMY TURBINECTOMY ANTROSTOMY TURBINECTOMY ANTROSTOMY TURBINECTOMY ETHMOIDECTOMY IM(Right) ETHMOIDECTOMY IM(Right) ETHMOIDECTOMY IM(Right) Comments out for lunch at out for lunch at [phone] Last Modified By: Patrick INFANTE, Nelly Nguyen RN, Nelly Robison RN 08/25/19 [...] Given Participants Yolette Govea MD, Rehana INFANTE, Jomar Morales, Patrick INFANTE, Nelly Pearce, Jeff MAYBERRY, Enzo Time Out Complete 08/25/19 10:55:00 Outcomes Met? [...] and tissue Entry 1 Skin Integrity Intact, So-Hi, Warm, and Skin Abnormality No Dry Outcomes [...] to positioning General Comments: safety strap brittany Rich RN Patient Care Devices FT Pre-Care Text: Implements protective measures to prevent skin/ tissue injury due to thermal or mechanical sources Entry 1 Entry 2 Entry 3 Equipment Type M4 MICRODEBRIDER [F] [employer] FUSION SYSTEM MISTRAL FORCED AIR [F] WARMING SYSTEM UNIT[F] Equipment Number m5 Equipment Setting Outcomes Met? Yes Yes Yes Last Modified By: Patrick INFANTE, Nelly Nguyen RN, Nelly Robison RN 08/25/19 11:36:50 08/25/19 11:36:50 08/25/19 11:36:50 Entry 4 Entry 5 Entry 6 Equipment Type MONITOR CHARGE SURGERY VIDEO SYSTEM[F] CONSOLE MEDTRONIC IPC [F] [F] Equipment Number Equipment Setting Outcomes Met? Yes Yes Yes Last Modified By: Patrick INFANTE, Nelly Nguyen RN, Nelly Robison RN 08/25/19 11:36:50 08/25/19 [...] Correct Time 08/25/19 11:42:00 By Rehana INFANTE, Breezy Staton TONGUE AND GROOVE MACHINE FEEDER, Jeff Marcano CST, Jeff Giraldo CST, Enzo Kimball RN, Nelly Horn RN Outcomes Met? Yes Yes Yes Last Modified By: Nelly Nguyen RN, RN, Jomar Fontenot RN 08/25/19 11:10:00 08/25/19 11:46:28 08/25/19 12:17:06 Entry 4 Procedure(s) ANTROSTOMY TURBINECTOMY ETHMOIDECTOMY IM(Right) Type Final Items Sponges, Sharps Status Correct Time By Nelly Nguyen RN, Wilhelm CST, Benjamin Outcomes Met? Yes Last Modified By: Nelly [...] L Patient Status Stable Skin. Condition Intact, So-Hi, Warm, and Dry Airway Maintenance Oxygen in Use? Yes Airway Device Simple Mask Flow Rate 10 L/min Outcomes Met? Yes Last Modified By: Jomar Kimball RN 08/25/19 11:48:09 Post-Care Text: The patient is free from signs and symptoms of injury related to transfer/transport General Comments: handoff report given to pacu nurse. ARELIS Whelanbundle collector Administration FT Pre-Care Text: Verifies allergies, administers prescribed medications and solutions, administers prescribed antibiotic therapy and immunizing agents as ordered, evaluates response to medications Administers prescribed medications and solutions Entry 1 Expiration Date Yes Outcomes Met? Yes Verified Last Modified By: Nelly Nguyen RN 08/25/19 10:03:51 Post-Care Text: The patient received appropriate medication(s) safely administered during the perioperative period For [place] please see scanned medication reconcilliation form for [...] AIR Quantity 1 Aid PLUS LOWER BODY [ST0863-FL][F] Fluid/[place] Unit Mistral warming system Setting high/43 degrees Body Site Lower anterior torso Last Modified By: Nelly Nguyen RN 08/25/19 10:05:52 Case Comments Finalized By: Melisa Rg CST Document Signatures Signed By: Nelly Nguyen RN 08/25/19 13:06 ALEXIS Hines RN, Andrea 08/26/19 11:19 Melisa Rg CST 08/29/19 09:[address] [facility] Operative Reporton 11-22-201 9 Operative Report Date of Surgery: 08/25/2019 SURGEON: Yolette Govea Jr., M.D. PRIMARY CARE PHYSICIAN: Enzo Coleman D.O. PREOPERATIVE DIAGNOSIS: Right-sided chronic pansinusitis POSTOPERATIVE [...] Yolette Govea Jr., M.D. aek Dictated: 08/25/2019 #[id number] Typed: 08/26/2019 #[id number] cc: Wiliam Carrillo Jr., M.D. [facility] Comment on above: Result Comment: Elec tronically Signed By: Yolette Govea MD\.br\Date and Time Signed: 08/26/19 09:56 EST Inpatient Patient Summaryon 08-25-2019 Inpatient Patient Summary [facility] Clinical Discharge Instructions PERSON INFORMATION Name: WALE [place] PHYSICIANS Admitting Physician: Yolette Govea MD Attending Physician: Yolette Govea MD PCP: ENZO COLEMAN DO Discharge Diagnosis: Chronic pansinusitis Comment: PATIENT EDUCATION INFORMATION Instructions: Post Op Patient Instructions - FT (CUSTOM) Medication Leaflets: Follow up: With: Address: When: Yolette Govea [address] [phone] Business (1) In 6 days 08/31/2019 Comments: Call for followup appointment MEDICATION LIST Comment: [facility] Main OR PACU I Recordon 08-06 Main OR PACU I Record PACU Phase I Document Type FT Summary Primary Physician: Yolette Govea MD Finalized Date/Time: 08/25/19 13:39:03 Pt. Name: SHMUELWALE.O.B./Sex: 2000 Male Med Rec #: [id number] Physician: Yolette Govea MD Financial #: [id number] Pt. Type: A Room/Bed: [place] [address] Admit/Disch: 08/25/19 09:16:27 - Institution: Case Times [...] By: Jesenia Phan RN 08/25/19 13:[address] [facility] Main OR PACU II Recordon Main OR PACU II Record PACU Phase II Document Type FT Summary Primary Physician: Yolette Govea MD Finalized Date/Time: 08/25/19 15:29:24 Pt. Name: WALE MI/Sex: 2000 Male Med Rec #: [id number] Physician: Yolette Govea MD Financial #: [id number] Pt. Type: A Room/Bed: [place] [address] Admit/Disch: 08/25/19 09:16:27 - Institution: Case Times [...] By: Heavenly Hager RN 08/25/19 15:[address] [facility] Main OR Preoperative Recordo n 08-25-2019 Main OR Preoperative Record PreOp Document Type FT Summary Primary Physician: Yolette Govea MD Finalized Date/Time: 08/25/19 11:07:39 Pt. Name: WALE MI/Sex: 2000 Male Med Rec #: [id number] Physician: Yolette Govea MD Financial #: [id number] Pt. Type: A Room/Bed: [facility] Admit/Disch: 08/25/19 09:16:27 - Institution: Case Times [...] Signed By: Nelly Nguyen RN 08/25/19 11:[address] [facility] Operative Reporton 9 Operative Report Patient: Ministerio MI Age: 18 years Sex: Male : 2000 Associated Diagnoses: None Author: Yolette Govea MD Postoperative Information Procedure: RT IG microdebrider assisted MMA with r/o tissue, total ethmoidectomy, frontal sinusotomy, sphenoidotomy with r/o tissue Preoperative Diagnosis: Chronic pansinusitis (TWV41-FT J32.4, Working, Medical). Postoperative Diagnosis: Chronic pansinusitis (BHW96-VP J32.4, Discharge, Medical). Performed by: Yolette Govea MD. 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 Specimens Removed: nasal polyp, RT sinus contents, RT sinus sock, RT max sinus tissue, RT sphenoid tissue. Estimated Blood Loss: 100 ml. Medications Complications: None. Normal [facility] Comment on above: Result Comment: Elec tronically Signed By: Yolette Govea MD\.br\Date and Time Signed: 08/25/19 13:21 EST Patient Education - Texton 1 10-25-2018 Patient Education - Text Normal [facility] Coding Summary.on 08-22-2019 Coding Summary. CODING DATE: 019 FINAL [facility] STATUS: Home (Routine DC) PAYOR: [facility] [place] [facility] DESCRIPTION 5521 Level 1 Imaging without [...] CphT Date Saved: 08/22/2019 11:[address] [facility] Auto Diffon 08-19-2019 Basophils/100 WBC (Bld) 1.4 % Normal 0.0-2.0 [facility] Comment on above: Order Comment: Order Added by Discern Expert. Performed By: #### 2 599299, [id number], [id number] #### [facility] [address] [place] [address] Basophils/Leukocyte s Auto (Bld) [Pure # fraction] 0.2 E9/L Normal 0.0-0.2 [facility] Comment on above: Order Comment: Order Added by Discern Expert. Performed By: #### 2 469985, 4452539, [id number] #### [facility] [address] [place] [address] Eosinophils/100 WBC (Bld) 1.1 % Normal 0.0-8.0 [facility] Comment on above: Order Comment: Order Added by Discern Expert. Performed By: #### 2 003141, 1646532, [id number] #### [facility] [address] [place] [address] Eosinophils/Leukocy carlos Auto (Bld) [Pure # fraction] 0.1 E9/L Normal 0.0-0.5 [facility] Comment on above: Order Comment: Order Added by Discern Expert. Performed By: #### 2 333455, 7709235, [id number] #### [facility] [address] [place] [address] Lymphocytes/100 WBC (Bld) 21.2 % Normal 14.0-50.0 [facility] Comment on above: Order Comment: Order Added by Discern Expert. Performed By: #### 2 843626, 0212864, [id number] #### [facility] [address] [place] [address] Lymphocytes/Leukocy carlos Auto (Bld) [Pure # fraction] 2.3 E9/L Normal 1.0-4.0 [facility] Comment on above: Order Comment: Order Added by Discern Expert. Performed By: #### 2 918501, 6650862, 17770657 #### [facility] [address] [place] [address] Monocytes/100 WBC (Bld) 5.4 % Normal 4.0-14.0 [facility] Comment on above: Order Comment: Order Added by Discern Expert. Performed By: #### 2 004922, 8746162, 18204262 #### [facility] [address] [place] [address] Monocytes/Leukocyte s Auto (Bld) [Pure # fraction] 0.6 E9/L Normal 0.2-1.0 [facility] Comment on above: Order Comment: Order Added by Discern Expert. Performed By: #### 2 229098, 9096505, 14164110 #### [facility] [address] [place] [address] 10484 Neutrophils/100 WBC (Bld) 70.9 % Normal 36.0-75.0 [facility] Comment on above: Order Comment: Order Added by Discern Expert. Performed By: #### 2 758033, 5028982, 31410385 #### [facility] [address] [place] [address] Neutrophils/Leukocy carlos Auto (Bld) [Pure # fraction] 7.6 E9/L High 2.0-7.5 [facility] Comment on above: Order Comment: Order Added by Discern Expert. Performed By: #### 2 658482, 8135657, 04738156 #### [facility] [address] [place] [address] BUNon 08-19-2019 Urea nitrogen [Mass/Vol] 12 mg/dL Normal 5-21 [facility] Comment on above: Performed By: #### 2 403008, 3903653, 14096727, 8028848, 3410901 #### [facility] [address] [place] [address] CBC w/ Auto Diffon 9 Erythrocyte distribution width (RBC) [Ratio] 14.1 % Normal 10.9-14.2 [facility] Comment on above: Performed By: #### 2 076410, 5802451, 77409460 #### [facility] [address] [place] [address] Hematocrit (Bld) [Volume fraction] 48.4 % Normal 37.7-49.0 [facility] Comment on above: Performed By: #### 2 471757, 8783921, 49915231 #### [facility] [address] [place] [address] Hemoglobin (Bld) [Mass/Vol] 16.2 g/dL Normal 13.5-17.5 [facility] Comment on above: Performed By: #### 2 861257, 7858096, 13687757 #### [facility] [address] [place] [address] MCH (RBC) [Entitic mass] 29.0 pg Normal 27.0-34.0 [facility] Comment on above: Performed By: #### 2 864368, 1113331, 89007091 #### [facility] [address] [place] [address] MCHC (RBC) [Mass/Vol] 33.6 g/dL Normal 31.4-36.0 [facility] Comment on above: Performed By: #### 2 499793, 6130241, 02707222 #### [facility] [address] [place] [address] MCV (RBC) [Entitic vol] 86.5 fL Normal 80.0-100.0 [facility] Comment on above: Performed By: #### 2 778439, 2848306, 62829340 #### [facility] [address] [place] [address] Platelet mean volume (Bld) [Entitic vol] 8.7 fL Normal 6.4-10.8 [facility] Comment on above: Performed By: #### 2 190164, 0918485, 71555431 #### [facility] [address] [place] [address] Platelets (Bld) [#/Vol] 351.0 E9/L Normal 150.0-500.0 [facility] Comment on above: Performed By: #### 2 536404, 0310844, 84836036 #### [facility] [address] [place] [address] RBC (Bld) [#/Vol] 5.6 E12/L Normal 4.3-5.9 [facility] Comment on above: Performed By: #### 2 214220, 1480123, 14437669 #### [facility] [address] [place] [address] WBC corrected for nucl RBC Auto (Bld) [#/Vol] 10.7 E9/L Normal 4.0-11.0 [facility] Comment on above: Performed By: #### 2 250559, 7123022, 78903416 #### [facility] [address] [place] [address] Creatinineon 08-19-2019 Creatinine [Mass/Vol] 0.8 mg/dL Normal 0.5-1.3 [facility] Comment on above: Performed By: #### 2 302893, 8632290, 71523946, 9663667, 3650086 #### [facility] [address] [place] [address] Glucoseon 08-19-2019 Glucose [Mass/Vol] 97 mg/dL Normal 55-199 [facility] Comment on above: Performed By: #### 2 804431, 9959542, 22248497, 3035985, 4971781 #### [facility] [address] [place] [address] Lyteson 08-19-2019 Anion gap [Moles/Vol] 14 mmol/L Normal 6-16 [facility] Comment on above: Performed By: #### 2 778256, 3622761, 14897596, 6634948, 6797154 ####[facility] [address] [place] [address] Chloride [Moles/Vol] 104 mmol/L Normal 101-111 [facility] Comment on above: Performed By: #### 2 300940, 8637742, 17999151, 9677327, 6251238 ####[facility] [address] [place] [address] CO2 [Moles/Vol] 25 mmol/L Normal 21-31 [facility] Comment on above: Performed By: #### 2 855214, 8360430, 93026607, 9168087, 6728199 ####[facility] [address] [place] [address] Potassium [Moles/Vol] 3.5 mmol/L Normal 3.5-5.3 [facility] Comment on above: Performed By: #### 2 942611, 3668881, 14601287, 7943747, 0401609 ####[facility] [address] [place] [address] Sodium [Moles/Vol] 139 mmol/L Normal 135-145 [facility] Comment on above: Performed By: #### 2 730141, 6044849, 97011197, 5043904, 4595411 ####[facility] [address] [place] [address] PT & PTTon 08-19-2019 aPTT Coag (PPP) [Time] 35.7 second(s) Normal 25.1-36.5 [facility] Comment on above: Result Comment: Hepa rin therapeutic range (represented by Anti-Factor Xa activity of 0.2 - 0.4 U/mL) corresponds to PTT of 56.6 - 109.0 sec. Performed By: #### 2 968900, 2293972, 20207597 #### [facility] [address] [place] [address] INR Coag (PPP) [Relative time] 1.0 {INR} [facility] Comment on above: Result Comment: INR results are specifically intended to assess patients stabilized on long-term Anticoagulation therapy suggested INR?s ?Less Intensive Anticoagulation? 2.0 ? 3.0 Conventional Range 3.0 ? 4.5 Performed By: #### 2 798444, 0616233, 65939180 #### [facility] [address] [place] [address] PT Coag (PPP) [Time] 11.6 second(s) Normal 10.2-12.9 [facility] Comment on above: Performed By: #### 2 254564, 1386849, 56880645 #### [facility] [address] [place] [address] XR Chest 2 Viewson 9 XR Chest [...] M.D. Transcribed by: JAZMYNE Technologist: ZHANNA Parr [facility] eGFRon 08-19-2019 GFR/1.73 sq M predicted among blacks MDRD (S/P/Bld) [Vol rate/Area] mL/min/{1.73_m2} Normal >=59 [facility] Comment on above: Order Comment: Order added by Discern Expert. Result Comment: eGFR is race adjusted. AA=. Performed By: #### 2 255097, 6462694, 52624197, 8987717, 8269482 #### [facility] [address] [place] [address] GFR/1.73 sq M predicted among non-blacks MDRD (S/P/Bld) [Vol rate/Area] mL/min/{1.73_m2} Normal >=59 [facility] Comment on above: Order Comment: Order added by Discern Expert. Result Comment: Patient Centered Care Specialist niall kidney disease could be indicated at eGFR's of less than 60 mL/min/1.73m2. Kidney failure is indicated at less than 15 mL/min/1.73m2. Performed By: #### 2 036782, 7428170, 06467712, 3231036, 5066382 #### [facility] [address] [place] [address] Coding Summary.on 08-08-2019 Coding Summary. CODING DATE: 019 FINAL [facility] STATUS: Home (Routine DC) PAYOR: [facility] [place] [facility] DESCRIPTION 5522 Level 2 Imaging without [...] CphT Date Saved: 08/08/2019 12:[address] [facility] CT Maxillofacial w/o Contras ton 08-07-2019 [...] M.D. Transcribed by: JAZMYNE Technologist: YOSEPH Parr [facility] Vital Signs Date Time Vital Sign Value Performing Clinician Facility 07-13-2024 13:18-0400 Body height 182.9 cm Dominick Barbosa MD Work Phone: [facility] 07-13-2024 13:18-0400 Body mass index (BMI) [Ratio] 56.42 kg/m2 Dominick Barbosa MD Work Phone: [facility] 07-13-2024 13:18-0400 Body weight 188.7 kg Dominick Barbosa MD Work Phone: [facility] 06-03-2024 14:05-0400 Body height 182.25 cm [facility] 06-03-2024 14:05-0400 Body mass index (BMI) [Ratio] 57.3 kg/m2 [facility] 06-03-2024 14:05-0400 Body weight 190.5 kg [facility] 06-03-2024 14:05-0400 Diastolic blood pressure 91 mm[Hg] [facility] 06-03-2024 14:05-0400 Heart rate 83 /min [facility] 06-03-2024 14:05-0400 Respiratory rate 12 /min [facility] 06-03-2024 14:05-0400 Systolic blood pressure 146 mm[Hg] [facility] 03-09-2024 15:02-0400 Body height 182.9 cm Dominick Barbosa MD Work Phone: [facility] 03-09-2024 15:02-0400 Body mass index (BMI) [Ratio] 56.32 kg/m2 Dominick Barbosa MD Work Phone: [facility] 03-09-2024 15:02-0400 Body weight 188.38 kg Dominick Barbosa MD Work Phone: [facility] 10-06-2023 12:15-0500 Body height 182.25 cm Enzo Ball Other [facility] [employer] Other 10-06-2023 12:15-0500 Body mass index (BMI) [Ratio] 54.62 kg/m2 Enzo Ball Other [employer] [facility] [employer] Other 10-06-2023 12:15-0500 Body weight 181.44 kg Enzo Ball Other [facility] [employer] Other 09-02-2023 15:29-0500 Body height 182.9 cm Dominick Barbosa MD Work Phone: [facility] 09-02-2023 15:29-0500 Body mass index (BMI) [Ratio] 54.37 kg/m2 Dominick Barbosa MD Work Phone: [facility] 09-02-2023 15:29-0500 Body weight 181.85 kg Dominick Barbosa MD Work Phone: [facility] 05-27-2023 07:57-0400 Body height 182.88 cm Enzo Luca Ball Work Phone: [facility] Work Phone: 05-27-2023 07:57-0400 Body mass index (BMI) [Ratio] 55.81 kg/m2 Enzo E Ball Work Phone: [facility] Work Phone: 05-27-2023 07:57-0400 Body surface area Derived from formula 2.89 m2 Enzo Coleman Work Phone: [facility] [address] Work Phone: 05-27-2023 07:57-0400 Body weight 186.66 kg Enzo Coleman Work Phone: [facility] [address] Work Phone: 05-27-2023 07:57-0400 0 1 Enzo Coleman Work Phone: [facility] 4[address] Work Phone: Comment on above: [employer] 05-20-2023 12:20-0400 Body height 182.88 cm Enzo Coleman Work Phone: [facility] [address] Work Phone: 05-20-2023 12:20-0400 Body mass index (BMI) [Ratio] 56.31 kg/m2 Enzo Coleman Work Phone: [facility] [address] Work Phone: 05-20-2023 12:20-0400 Body surface area Derived from formula 2.91 m2 Enzo Coleman Work Phone: [facility] [address] Work Phone: 05-20-2023 12:20-0400 Body weight 188.33 kg Enzo Coleman Work Phone: [facility] [address] Work Phone: 05-15-2023 11:49-0400 Body temperature 96.8 [degF] Dominick Barbosa MD Work Phone: [facility] 05-15-2023 11:49-0400 Diastolic blood pressure 91 mm[Hg] Dominick Barbosa MD Work Phone: [facility] 05-15-2023 11:49-0400 Heart rate 82 /min Dominick Barbosa MD Work Phone: [facility] 05-15-2023 11:49-0400 Respiratory rate 16 /min Dominick Barbosa MD Work Phone: [facility] 05-15-2023 11:49-0400 Systolic blood pressure 139 mm[Hg] Dominick Barbosa MD Work Phone: [facility] 05-15-2023 11:18-0400 Body height 182.8 cm Dominick Barbosa MD Work Phone: [facility] 05-15-2023 11:18-0400 Body mass index (BMI) [Ratio] 55.39 kg/m2 Dominick Barbosa MD Work Phone: [facility] 05-15-2023 11:18-0400 Body weight 185.1 kg Dominick Barbosa MD Work Phone: [facility] 03-18-2023 13:56-0400 Body height 182.88 cm Enzo Coleman Work Phone: SL-Feujallhhgqfqi-Ea [place] Work Phone: 03-18-2023 13:56-0400 Body mass index (BMI) [Ratio] 56.63 kg/m2 Enzo Segovia Ball Work Phone: PQ-Njbvuhugqyyyqj-Xj [place] Work Phone: 03-18-2023 13:56-0400 Body surface area Derived from formula 2.91 m2 Enzo Coleman Work Phone: IE-Axvxsemsylvmnx-Wa [place] Work Phone: 03-18-2023 13:56-0400 Body weight 189.41 kg Enzo Coleman Work Phone: SN-Zfairrdbpeuqjg-Hv [place] Work Phone: 03-18-2023 13:56-0400 0 1 Enzo Coleman Work Phone: PO-Cfcvelfuoqdjwb-Zn [place] Work Phone: Comment on above: [employer] 11-12-2022 16:13-0500 Body height 182.88 cm Enzo Coleman Work Phone: EY-Tufpwsfrfatoal-Qn [place] Work Phone: 11-12-2022 16:13-0500 Body mass index (BMI) [Ratio] 56.89 kg/m2 Enzo Segovia Ball Work Phone: CL-Csagfwvxjitnjd-Cr [place] Work Phone: 11-12-2022 16:13-0500 Body surface area Derived from formula 2.92 m2 Enzo Coleman Work Phone: YZ-Cidgkvypvawmdz-Gv [place] Work Phone: 11-12-2022 16:13-0500 Body weight 190.29 kg Enzo Coleman Work Phone: NY-Scnfqaeeusgtxu-Np [place] Work Phone: 11-12-2022 16:13-0500 0 1 Enzo Coleman Work Phone: AG-Pgbsrbulnrkttm-Jm [place] Work Phone: Comment on above: [employer] Encounters Encounter Date Encounter Type Care Provider Facility Start: 07-13-2024 End: 07-13-2024 Office outpatient visit 15 minutes Dominick Barbosa MD Work Phone: [facility] Comment on above: Post-nasal drainage (Primary Dx); Chronic maxillary sinusitis; Nasal congestion Start: 07-13-2024 End: 07-13-2024 ambulatory DOMINICK BARBOSA [facility] Start: 07-04-2024 End: 07-04-2024 ambulatory Ruth Pfeiffer MD Facility:[facility] Start: 06-03-2024 Patient encounter status [facility] Start: 06-03-2024 End: 06-03-2024 ambulatory [facility] Work Phone: Start: 06-03-2024 End: 06-03-2024 Encounter for general adult medical examination without abnormal findings [facility] Start: 06-03-2024 End: 06-03-2024 Patient encounter procedure [facility] Physician [facility] Work Phone: Start: 03-09-2024 End: 03-09-2024 ambulatory [facility]INICK [facility] Start: 03-09-2024 End: 03-09-2024 Office outpatient visit 15 minutes Dominick Barbosa MD Work Phone: [facility] Comment on above: Chronic ethmoidal si nusitis (Primary Dx); Chronic maxillary sinusitis Start: 10-06-2023 End: 10-06-2023 ambulatory Enzo Coleman Other [employer] Other Start: 10-06-2023 Office outpatient vi sit 15 minutes Enzo Coleman [facility] Start: 09-02-2023 End: 09-02-2023 Office outpatient visit 15 minutes Dominick Barbosa MD Work Phone: [facility] Comment on above: Chronic ethmoidal si nusitis (Primary Dx); Other chronic sinusitis; Chronic sphenoidal sinusitis Start: 09-02-2023 End: 09-02-2023 ambulatory [facility]INICK [facility] Start: 06-07-2023 Chart Update Enzo morales Work Phone: CB-Ccrlplkgclwljh-[facility] Work Phone: Start: 05-27-[address] Dominick Cerda Facility:[id number] Start: 05-20-2023 Postop follow up vis it related to original px Enzo Coleman Work Phone: AO-Xupsattfulqqvq-VtniM[facility] 4108 Work Phone: Start: 05-20-[address] Enzo Coleman Facility:[id number] Start: 05-15-2023 End: 05-15-[address] Dominick Barbosa Facility:[facility] Start: 05-15-2023 AUDIT Enzo morales Work Phone: ZL-Igjfztldjcuhnc-[facility] 4106 Work Phone: Start: 05-15-2023 End: 05-15-2023 Subsequent hospital visit by physician Dominick Barbosa MD Work Phone: [facility] Comment on above: Chronic ethmoidal si nusitis; Benign neoplasm of middle ear, nasal cavity and accessory sinuses; Chronic sinusitis, unspecified Start: 05-12-[address] Dominick Cerda Facility:[facility] Start: 05-12-2023 Encounter for preprocedural laboratory examination Dr. Dominick Barbosa [facility] Start: 03-18-2023 Office outpatient vi sit 15 minutes Enzo Coleman Work Phone: FJ-Onpvrwzaezpnuw-Imuw[facility] 5155 Work Phone: Start: 03-18-2023 Patient encounter procedure Enzo Coleman Work Phone: BU-Fffcxxingeagry-Cufg lake Work Phone: Start: 03-18-[address] Dominick Cerda Facility:[id number] Start: 01-07-2023 End: 01-07-2023 ambulatory Enzo Coleman Other [employer] [facility] [employer] Other Start: 01-07-2023 Telephone encounter Enzo Coleman [facility] Start: 01-06-2023 Office outpatient vi sit 25 minutes Enzo Coleman Work Phone: RL-Scabcttmjibzgl-RivdM[facility] 4104 Work Phone: Start: 01-06-[address] Dominick Cerda Facility:[id number] Start: 01-05-2023 End: 01-05-2023 ambulatory Enzo Coleman Other [employer] Other Start: 01-05-2023 Office outpatient vi sit 15 minutes Enzo SALVADOR [facility] Start: 11-19-2022 End: 11-20-[address] DOCTOR PARISI Facility:H1 Start: 11-12-2022 Office outpatient vi sit 25 minutes Enzo Segovia [place] Work Phone: OG-Klkxqyglglwcvb-ZrvbM[facility] 4100 Work Phone: Start: 11-12-2022 Patient encounter procedure Enzo Coleman Work Phone: PQ-Cikvmppzbgktas-Jtaw [place] Work Phone: Start: 11-12-[address] Dominick Cerda Facility:[id number] Start: 07-29-2022 End: 08-23-[address] ENZO COLEMAN Facility:H1 Start: 07-22-2022 End: 07-23-[address] ENZO COLEMAN Facility:H1 Start: 06-24-2022 Well child visit Enzo Coleman Other [employer] Other Start: 03-20-2022 End: 04-25-[address] ENZO COLEMAN Facility:H1 Start: 02-18-2022 End: 02-19-[address] ENZO COLEMAN Facility:H1 Procedures Date Procedure Procedure Detail Performing Clinician Start: 07-13-2024 Level iv surg pathol ogy gross&microscopic exam Dominick Barbosa MD Work Phone: Start: 09-02-2023 Follow-up visit Follow-up DOMINICK BARBOSA Start: 05-15-2023 SURGICAL PATHOLOGY RESULTS Dominick Barbosa MD Work Phone: Start: 08-31-2019 Anesthesia consultation Start: 08-25-2019 Anesthesia consultation Start: 04-23-2017 General examination of patient Enzo Coleman Other Start: 04-23-2017 History and physical examination, administrative Enzo Coleman Other Nasal sinus procedure Sumeet Coleman Work Phone: Plan of Treatment Date Care Activity Detail Author Start: 2050 Zoster Vaccines (1 of 2) Zoste r Vaccines (1 of 2) [facility] Start: 01-11-2025 End: 01-11-2025 Patient encounter procedure 01/11/2025 3:00 PM EDT Office Visit [facility] [address] [place] [address] Dominick Barbosa MD [address] [place] [address] [facility] Start: 07-13-2024 End: 07-13-2024 Patient encounter procedure 07/13/2024 1:15 PM EDT Office Visit [facility] [address] [place] [address] Dominick Barbosa MD [address] [place] [address] [facility] Start: 06-05-2024 COVID-19 Vaccine ( season) COVID-19 Vaccine ( season) [facility] Start: 06-05-2024 Influenza vaccination [facility] Start: 03-09-2024 End: 03-09-2024 Patient encounter procedure 03/09/2024 2:45 PM EDT Office Visit [facility] [address] [place] [phone] Dominick Barbosa MD [address] [place] [address] [facility] Start: 09-02-2023 FUV, Provider: Dominick Barbosa, Status: Pen, Time: 2:45 PM FUV, Provider: Dominick Barbosa, Status: Pen, Time: 2:45 PM TP-Epexwdjizvmxcq-LqgfM[facility] 4100 Work Phone: Start: 09-02-2023 End: 09-02-2023 Patient encounter procedure 09/02/2023 2:45 PM EST Office Visit [facility] [address] [place] [phone] Dominick Barbosa MD [address] [place] [address] [facility] Start: 06-05-2023 COVID-19 Vaccine ( season) COVID-19 Vaccine ( season) [facility] Start: 06-05-2023 Influenza vaccination Influenz a Vaccine (#1) [facility] Start: 05-27-2023 POV, Provider: Dominick Barbosa, Status: Pen, Time: 10:30 AM POV, Provider: Dominick Barbosa, Status: Pen, Time: 10:30 AM IX-Evmwpxvqvunimy-Edvn [place] Work Phone: Start: 05-20-2023 POV, Provider: Dominick Barbosa, Status: Pen, Time: 12:30 PM POV, Provider: Dominick Barbosa, Status: Pen, Time: 12:30 PM FX-Nrfryeubyxemop-Aabg [place] Work Phone: Start: 12-22-2022 DTaP/Tdap/Td Vaccine s (7 - Td or Tdap) DTaP/Tdap/Td Vaccines (7 - Td or Tdap) [facility] Start: 2022 DTaP/Tdap/Td Vaccine s (1 - Tdap) DTaP/Tdap/Td Vaccines (1 - Tdap) [facility] Start: 03-07-2021 COVID-19 Vaccine (2 - Booster for Isaias series) COVID-19 Vaccine (2 - Booster for Isaias series) [facility] Start: 2018 Hepatitis C screening Hepatitis C Sc reening [facility] Start: 2015 HPV Vaccines (1 - Ma le 3-dose series) HPV Vaccines (1 - Male 3-dose series) [facility] Start: 2011 HPV Vaccines (1 - Ma le 2-dose series) HPV Vaccines (1 - Male 2-dose series) [facility] Start: 11-28-2004 Varicella vaccination Varicell a Vaccines (2 of 2 - 2-dose childhood series) [facility] Start: 2001 MMR Vaccines (1 of 1 - Standard series) MMR Vaccines (1 of 1 - Standard series) [facility] Start: 2001 Varicella vaccination Varicell a Vaccines (1 of 2 - 2-dose childhood series) [facility] Start: 03-23-2001 COVID-19 Vaccine (#1) COVID-19 Vacci ne (#1) [facility] Start: 2000 Hepatitis B Vaccines (1 of 3 - 3-dose series) Hepatitis B Vaccines (1 of 3 - 3-dose series) [facility] Start: 2000 HIV screening HIV Screening [facility] Start: 2000 Lipid panel Lipid Panel [facility] Start: 2000 Yearly Adult Physical Yearly Adult P hycal [facility] Comprehensive metabo lic 2000 panel - Serum or Plasma [facility] Patient Education Low back pain in adults [facility] Work Phone: [facility] Immunizations Immunization Date Immunization Notes Care Provider Leland sharp 09-23-2001 varicella virus vaccine Dominick Barbosa MD Work Phone: [facility] Work Phone: Payers Date Payer Category Payer [employer] [facility] [id number] 2022 Unknown 2022 Unknown [id number] 2019 Unknown [id number] 2000 Unknown [id number] [id number]. 593 2000 Unknown [id number] 2.16.840.1.786134.3.579.2. 593 2000 Unknown [id number] 2.16.840.1.130594.3.579.2. 593 2000 Unknown [id number] 2.16.840.1.936123.3.579.2. 593 2000 Unknown [id number] 2.16.840.1.123728.3.579.2. 593 2000 Unknown [id number] 2.16.840.1.423954.3.579.2. 356 2000 Unknown [id number] 2.16.840.1.266866.3.579.2. 356 2000 Unknown [id number] 2.16.840.1.794395.3.579.2. 356 2000 Unknown [id number] 2.16.840.1.316185.3.579.2. 356 2000 Unknown [id number] 2.16.840.1.504766.3.579.2. 356 2000 Unknown [id number] 2.16.840.1.447247.3.579.2. 356 2000 Unknown [id number] 2.16.840.1.274652.3.579.2. 356 2000 Unknown [id number] 2.16.840.1.677071.3.579.2. 196 2000 Unknown [id number] 2.16.840.1.871509.3.579.2. 1244 2000 Unknown [id number] 2.16.840.1.789874.3.579.2. 1244 2000 Unknown [id number] 2.16.840.1.915097.3.579.2. 1244 Social History Date Type Detail Facility Start: 09-02-2023 End: 07-13-2024 Never a smoker Never a smoker XY-Omqdndrstlrbtz-Ve raj Work Phone: Start: 09-02-2023 End: 07-13-2024 Sex Assigned At [facility] [employer] [facility] Other Tobacco smoking status NEIS Tobacco smoking consumption unknown [facility] Work Phone: Start: 2000 [facility] Work Phone: Start: 09-02-2023 Tobacco smoking status NEIS Never smoked tobacco [facility] Work Phone: Start: 09-02-2023 Tobacco use and exposure Smokeless tobacco non-user [facility] Work Phone: Start: 08-23-2023 End: 07-13-2024 Exposure to SARS-CoV-2 (event) Not sure [facility] Start: 2000 Sex Assigned At Male F [facility] Clinical Notes 09-04-2020 to 07-13-2024 Dominick Barbosa MD - 07/13/2024 1:15 PM EDTDominick Barbosa MD - 03/09/2024 2:45 PM EDT Note Date & Type Note Facility 07-13-2024 History of Present illness Narrative Images from the original note were not included. 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 Asthma 3. Obstructive sleep apnea on positive pressure 4. Deviated nasal septum 5. Intermittent allergy symptoms History Of Present Illness: Wale Mi presents since last being seen March 09, 2024. He reports sinus symptoms that fluctuate with the weather as noted below. Main Symptoms: Patient does not have anterior nasal drainage. Patient has posterior nasal drainage. With weather. Patient has nasal airway obstruction. With weather. Patient does not have facial pain. Patient does not have facial pressure. Patient does not have decreased sense of smell. Associated Symptoms: Patient does not have headaches. Patient has throat clearing. With weather. Patient has coughing. With weather. Patient does not have dysphonia. Patient does not have nasal bleeding. Medications currently on for sinonasal symptoms: None. Active Problems: There is no problem list [...] known allergies. Current Meds: Current Outpatient Medications: metFORMIN (Glucophage) 850 mg tablet, Take 1 tablet (850 mg) by mouth early in the morning.., Disp: , Rfl: mometasone furoate, bulk, 100 % powder, Compound 2 mg capsule to be added to sinus rinse twice daily., Disp: 180 g, Rfl: 3 Vitals: Visit Vitals Ht 1.829 m (6') Wt (!) 189 kg (416 lb) BMI 56.42 kg/m Smoking Status Never BSA 3.1 m Physical Exam: Nose: On external exam there are neither lesions nor asymmetry of the nasal tip/dorsum. On anterior rhinoscopy, visualization posteriorly is limited on anterior examination. For this reason, to adequately evaluate posteriorly for masses, source of epistaxis, polypoid disease, debridement, and/or signs of infections, nasal endoscopy is indicated. (Please see procedure below.) SINONASAL ENDOSCOPY WITH BIOPSY (CPT 72194-J): Due to the patient's nasal cavity / paranasal sinus lesion, sinonasal endoscopy with biopsy is indicated. After discussion of risks (most notably bleeding) and benefits, topical decongestion and anesthesia was applied, and an endoscope was used to perform nasal endoscopy with biopsy. A timeout identifying the patient, the procedure, and any concerns was performed prior to beginning the procedure. Findings: Examination of the right nasal cavity revealed a polypoid lesion completely filling the maxillary sinus and extending into the ethmoid cavity. I obtained several biopsies of this with a alligator and then using an angled microdebrider blade the lesion was debrided. Initially it was consistent with a polyp but when I entered the lesion more centrally it became cystic and was drained and then the lining was also debrided. He tolerated the procedure very well and after completion of the procedure the maxillary sinus and ethmoid cavity were widely patent. There was some edematous mucosa on the floor of the sphenoid. There was no clear evidence of persistent papilloma. 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 Postnasal drainage 3. Nasal airway obstruction 4. Throat clearing, coughing 5. Asthma, allergy symptoms 6. Obstructive sleep apnea on positive pressure Discussion: Wale Mi appeared well on examination today. Based on exam today, I think that the lesion in the right maxillary sinus was a mucous retention cyst. There were polypoid components but I do not think that this represents papilloma. Biopsies were obtained to confirm this. I will reach out to him with those results when they go final. I asked him to return to clinic in about 6 months for routine assessment. All questions were answered. Scribe Attestation By signing my name below, I, Tana Vitale, attest that this documentation has been prepared under the direction and in the presence of Dominick Barbosa MD. Signature: Dominick Barbosa MD documented in this encounter [facility] Work Phone: 03-09-2024 History of Present illness Narrative Chief Complaint: 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 Asthma 3. Obstructive sleep apnea on positive pressure 4. Deviated nasal septum History Of Present Illness: Wale Mi presents since last being seen 09/02/23. In [...] (Please see procedure below.) SINONASAL ENDOSCOPY (CPT 99763): To better evaluate the patient's symptoms, sinonasal [...] septum 5. Intermittent allergy symptoms Discussion: Wale Mi and I discussed his current exam. I [...] Dominick Barbosa MD. documented in this encounter [facility] Work Phone: 10-06-2023 Evaluation note Encounter [...] index [BMI] 50.0-59.9, adult (ICD-10 - Z68.43) [employer] Other 11-29-2023 History of Present illness [...] symptoms: Saline rinses once per day. Wale Mi presents for follow-up after last being seen [...] (Please see procedure below.) SINONASAL ENDOSCOPY (CPT 24568): To better evaluate the patient's symptoms, sinonasal [...] pressure 4. Deviated nasal septum Discussion: Wale Mi and I discussed his exam. He had [...] free to contact my office by calling [phone] with any questions. Signature: Scribe Attestation By signing my name below, I, Reina Irvin , Scrluz attest that this documentation has been prepared under the direction and in the presence of Agustina Barbosa MD. documented in this [facility] Work Phone: 1(345) 458-135608-11-2023 NotePost Operative Note: PreOp Diagnosis: Right sinonasal inverted papilloma, chronic sinusitis Post-Procedure Diagnosis: Same Procedure: 1. Right nasal endoscopy with total ethmoidectomy including sphenoidotomy with tissue removal CPT 07200-Y-52 2. Right nasal endoscopy with frontal sinusotomy CPT 73066-E 3. Right maxillary endoscopy with tissue removal 74180-P 4. Extracranial CT image guidance CPT 00087 Surgeon: Familia Resident/Fellow/Other Supervisor Joiners: None Anesthesia: GET Estimated Blood Loss (mL): [...] middle turbinate was resected (more content not included)...[facility] 05-15-2023 Miscellaneous Notes* Op Note - Dominick Barbosa MD - 05/15/2023 4:37 PM EDT Post Operative Note: PreOp Diagnosis: Right sinonasal inverted papilloma, chronic sinusitis Post-Procedure Diagnosis: Same Procedure: 1. Right nasal endoscopy with total ethmoidectomy including sphenoidotomy with tissue removal CPT 22353-G-84 2. Right nasal endoscopy with frontal sinusotomy CPT 56948-W 3. Right maxillary endoscopy with tissue removal 33936-I 4. Extracranial CT image guidance CPT 43195 Surgeon: Familia Resident/Fellow/Other Supervisor Joiners: None Anesthesia: GET Estimated Blood Loss (mL): [...] 17:00 by Dominick Barbosa) documented in this [facility] Work Phone: 1(383) 613-253408-11-2023 Note* Op Note - Dominick Barbosa MD - 05/15/2023 4:37 PM EDT Post Operative Note: PreOp Diagnosis: Right sinonasal inverted papilloma, chronic sinusitis Post-Procedure Diagnosis: Same Procedure: 1. Right nasal endoscopy with total ethmoidectomy including sphenoidotomy with tissue removal CPT 32777-V-20 2. Right nasal endoscopy with frontal sinusotomy CPT 97900-I 3. Right maxillary endoscopy with tissue removal 64900-R 4. Extracranial CT image guidance CPT 86723 Surgeon: Familia Resident/Fellow/Other Supervisor Joiners: None Anesthesia: GET Estimated Blood Loss (mL): [...] Last Updated: 15-May-2023 17:00 by Dominick Barbosa) [facility] Work Phone: 1(600) 356-534508-11-2023 History of Present illness Narrative* Wale presents for his first postoperative visit following right-sided sinus surgery in 05/15/23. * Following his surgery he has done well. He has been having some headaches that are controlled with Tylenol. His breathing has been significantly improved. He is rinsing several times per day. He denies significant nasal drainage. [facility]indscszjflvzc-[facility]lwrtaiSan[facility] [address] Work Phone: 1([phone]) 129-596208-11-2023 NoteHistory of Present Illness: History Present Illness: [...] Completion Last Updated: 15-May-2023 11:51 by Dominick Barbosa)[facility]08-11-2023 History and physical note* Dominick Barbosa MD [...] Last Updated: 15-May-2023 11:51 by Dominick Barbosa) [facility] Work Phone: 1(340) 831-272808-11-2023 History and physical note* Dominick Barbosa MD [...] 11:51 by Dominick Barbosa) [facility] Work Phone: 1([phone]) 704-610404-05-2023 Evaluation note* Encounter Date Diagnosis Assessment Notes Treatment Notes Treatment Clinical Notes Jan, Inverted papilloma of nasal cavity (ICD-10 - D14.0) [employer] Other 04-04-2023 Chief complaint Narrative - Reported* An interactive audio and video telecommunication system which permits real time communications between the patient (at the originating site) and provider (at the distant site) was utilized to providethis telehealth service. * Verbal consent was requested and obtained from WALE MI on this date, 01/06/2023 03:30 PM , for a telehealth visit. * 1. 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 Nasal airway obstruction * 3. Throat clearing, coughing, dysphonia * 4. Asthma * 5. Obstructive sleep apnea on positive pressure [facility] [address] Work Phone: 1([phone]) 277-184204-04-2023 History of Present illness Narrative* Reason for visit: * WALE MI patient presents since last being seen 01/06/23. * Wale presents for routine follow-up. He is interested in going forward with his inverted papillomaresection and would like to schedule it as soon as there is availability. DO-Vpgfgklsuqvkev-Eihifoig Work Phone: [phone]) 602-247504-04-2023 History of Present illness Narrative* Reason for visit: * WALE MI patient presents since last being seen 01/06/23. * Wale presents for routine follow-up. 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 [facility] [address] Work Phone: [phone] Evaluation note* Encounter Date Diagnosis Assessment Notes [...] for congestion, Tylenol for pain and fever. [employer] Other 12-01-2020 History of Present illness Narrative* Reason for visit: * WALE MI patient presents since last being seen 09/04/20. [...] and is using flonase only as needed. SA-Wnomsxiprtginm-Pueamzdb Work Phone: 1([phone]) 850-537912-01-2020 History of Present illness Narrative* Reason for visit: * WALE MI patient presents since last being seen 09/04/20. [...] well outside of some nasal breathing issues. JQ-Tmiwztrdjhmtmf-QszkorpChi [facility] 4[address] Work Phone: Evaluation note* Diagnosis Chronic ethmoidal sinusitis Benign neoplasm of middle ear, nasal cavity and accessory sinuses Benign neoplasm of nasal cavities, middle ear, and accessory sinuses Chronic sinusitis, unspecified documented in this encounter [facility] Work Phone: Evaluation note* Diagnosis Chronic ethmoidal sinusitis- Primary Other chronic sinusitis Chronic sphenoidal sinusitis documented in this encounter [facility] Work Phone: Evaluation note* Diagnosis Chronic ethmoidal sinusitis- Primary Chronic maxillary sinusitis documented in this encounter [facility] Work Phone: Evaluation note* Diagnosis Onset Date Resolution Status Bulging lumbar disc acute Elevated BP without diagnosis of hypertension acute Low back pain acute Obesity acute Wellness examination [facility] Work Phone: Evaluation note* Diagnosis Post-nasal drainage- Primary Other diseases of nasal cavity and sinuses Chronic maxillary sinusitis Nasal congestion Other diseases of nasal cavity and sinuses documented in this encounter [facility] Work Phone: History general Narrative - [...] ethmoidectomy 08/25/2019 Hospitalization History see surgical history [employer] Other History of Present illness Narrative* [...] 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 [facility] Work Phone: Summary Purpose Family History [...] Complaint and Reason for Visit Chief Complaint So-Hi Eye Reason for Visit Bulging lumbar disc Elevated BP without diagnosis of hypertension Low back pain Obesity Wellness examination Additional Source Comments (unrecognized sect ion and content) No Status Records FoundNo Status Records FoundNo Status Records FoundNo Status Records FoundNo Status Records FoundNo Status Records Found INFORMATION SOURCE (unrecogn ized section and content) DATE CREATED AUTHOR 03/06/2020 [facility] DATE CREATED AUTHOR AUTHOR'S ORGANIZ ATION 11/24/2022 [facility] DATE CREATED AUTHOR AUTHOR'S ORGANIZ ATION 05/28/2023 [facility] DATE CREATED AUTHOR AUTHOR'S ORGANIZ ATION 06/05/2023 [facility] DATE CREATED AUTHOR AUTHOR'S ORGANIZ ATION 07/08/2024 [facility] DATE CREATED AUTHOR AUTHOR'S ORGANIZ ATION 07/24/2024 [facility] REASON FOR VISIT (unrecogniz ed section and content) Reason Comments Other Right endoscopic sin us surgery with image guidance, right endoscopic medial maxillectomy, septoplasty Reason Comments Follow-up Care Teams (unrecognized sec tion and content) Expert Witness Relationship Specialty Start Date End Date Enzo Coleman DO PCP - General 09/21/19 Expert Witness Relationship Specialty Start Date End Date Enzo Coleman DO PCP - General 09/21/19 Expert Witness Relationship Specialty Start Date End Date Enzo Coleman DO PCP - General 09/21/19 Cristiana Triplett APRN-[employer] [id number] [place] [address] PCP - Cyndie ENCISO PCP 09/04/23 Team Status: Active Member Role Status Dates Enzo Coleman DO Primary Care Provider Active Team Status: Inactive Member Role Status Dates Enzo Coleman DO Primary Care Provide r, Attending Provider Active Start: June 03, 2024 End: June 03, 2024 Expert Witness Relationship Specialty Start Date End Date Enzo Coleman DO PCP - General 09/21/19 Goals (unrecognized section and content) Goals may [...] BE BASED ON THE PRIMARY CLINICAL RECORDS. [facility] provides no warranty or guarantee of the accuracy or completeness of information in this document.
== END 2024-07-28 13:01 ==
LOC: PM 08-03 07:00
PROVIDERS: Family Provider Internal Medicine; PCP Internal Medicine; Visit Provider Nurse Practitioner
DX: M51.26 Other intervertebral disc displacement, lumbar region (principal); M48.062 Spinal stenosis, lumbar region with neurogenic claudication; M47.816 Spondylosis without myelopathy or radiculopathy, lumbar region; M79.18 Myalgia, other site
CPT/HCPCS: G0463

== ENCOUNTER 2024-08-01 15:42 | Outpatient (RCR) | payer BC, SELFPAY | END 2024-08-16 17:01 | disposition home or self-care (01) | LOC: PT 15:42 | PROVIDERS: Family Provider Internal Medicine; PCP Internal Medicine; Visit Provider Nurse Practitioner | DX: M48.062 Spinal stenosis, lumbar region with neurogenic claudication (principal) | CPT/HCPCS: 97110; 97161 ==

== ENCOUNTER 2024-08-31 12:30 | Outpatient (OUT) | payer BC, SELFPAY ==
--- NOTE | 2024-08-31 13:04 | P.CN_ITS ---
Consult Note: HPI Data of Consult Patient: known to practice within the last 3 years Consult date: 07/04/24 Requesting Physician: Shaneka Pena NP Primary Care Provider: Enzo Vasques DO Family Provider: Enzo Vasques DO Consult Narrative Reason for consult: low back, left leg pain Narrative: 23yom who presents for evaluation. 2 year history of low back, left leg pain. previous mri in 2021 shows multilevel disc herniation and ddd. uses tylenol , baclofen, and mobic as needed. denies adverse med side effects. recently completed lumbar MRI with results below. pain today 6/10 increasing with standing and walking, improving with sitting and lying. pt requested additional PT at last visit, failed to benefit. cc:: CC: Shaneka Pena NP Review of Systems ROS Status of ROS 10 or more systems reviewed and unremark able except as noted in history and below Musculoskeletal Reports: back pain and extremity pain Meds Home Medications and Allergies Home Medications ?Medication ?Instructions ?Recorded ?Confirmed ?Type metformin 850 mg tablet 850 mg PO DAILY 07/04/24 07/04/24 History baclofen 10 mg tablet 10 mg PO BID 07/28/24 07/28/24 History meloxicam 7.5 mg tablet 7.5 mg PO BID 07/28/24 07/28/24 History Allergies Allergy/AdvReac Type Severity Reaction Status Date / Time No Known Drug Allergies Allergy Verified 07/04/24 14:19 Exam Narrative Exam Narrative: Psych-alert and oriented x 3. Attentive and appropriate, constitutionally normal, displays normal mood and affect per situation. There are no obvious deficits in memory, reasoning, or intellect.? Skin-no obvious rashes, bruising, erythema noted to the patient's area of pain.? Extremities- extremities are warm with minimal edema and palpable pulses. Lumbar-tenderness to palpation noted in the lumbar spine and paraspinal musculature. Pain is elicited with flexion, extension, and lateral rotation of the lumbar spine. Range of motion is diminished with these motions. Facet loading maneuvers are positive. Strength-noted to be unremarkable with the exception of decreased strength rated at 4 out of 5 in left quadriceps femoris, anterior tibialis. Sensory-no notable sensory deficits in the bilateral lower extremities to touch or pinprick in all dermatomal distributions with the exception to decreased sensation to the left L4, L5, S1 dermatomal distribution Coordination remains intact.? Gait remains non-antalgic. Results Additional Findings Additional findings: If on a controlled substance or opioids, I have checked an [place]AR[place] report on this patient and there are no aberrancies noted in the prescribing history.??If on a controlled substance or opioid a drug screen was completed and reviewed within the last year, and if there has not been a drug screen completed we ordered one today to monitor higher risk, state monitored pain medication use. As part of providing excellent, safe, comprehensive care, the following was completed at our patient's visit: 1. A medication reconciliation and review to ensure accurate knowledge of current/active medications, including asking our patients to inform us about any luxc-tlj-byberes medications or herbal remedies/nutritional supplements/altern ative remedies. 2. A review to specifically ensure our patients have had annual screening for screening for depression, screening for tobacco use, and screening for unhealthy alcohol use. For concerning screenings had a discussion with the patient, provided patient education, and recommended follow-up with primary care provider when appropriate. If patient noted with a risk of falling, they received education on strength, gait, and balance training to prevent future risk of falling. Assessment and Plan Assessment and Plan (1) Lumbar stenosis with neurogenic claudication: (2) Lumbar disc displacement without myelopathy: (3) Lumbar radiculopathy: (4) Myalgia: Plan left L4-5 L5-S1 TFESI under fluoroscopy, risks vs benefits reviewed continue current medications, tolerating well without side effects f/u 2 weeks after [facility]
== END 2024-08-31 12:31 | disposition home or self-care (01) ==
LOC: PM 12:30
PROVIDERS: Family Provider Internal Medicine; PCP Internal Medicine; Visit Provider Nurse Practitioner
DX: M48.062 Spinal stenosis, lumbar region with neurogenic claudication (principal); M51.26 Other intervertebral disc displacement, lumbar region; M54.16 Radiculopathy, lumbar region; M79.18 Myalgia, other site
CPT/HCPCS: G0463

== ENCOUNTER 2024-09-12 06:43 | Day surgery (SDC) | payer BC, SELFPAY ==
[2024-09-12 06:50] VITALS: BP 147/85; PULSE 92; TEMP 36.3; O2SAT 97
[2024-09-12 06:57] LABS: Glucometer 162 mg/dL (74-106)
[2024-09-12 07:36] VITALS: BP 172/99; PULSE 71; O2SAT 97
[2024-09-12 07:38] VITALS: BP 165/95; PULSE 73; O2SAT 97
--- NOTE | 2024-09-12 07:41 | P.ON_ITS ---
Date of procedure: 09/12/24 Pre-op diagnosis: Pain due to lumbar stenosis with neurogenic claudication Post-op diagnosis: same as pre-op Procedure: Procedure: Left L4-5, L5-S1 transforaminal epidural steroid injection Medications: Bupivacaine 0.25% 2cc, lidocaine 2% 1cc, kenalog 80mg The patient was seen and examined in the preoperative holding area.? Informed consent was obtained and placed on the chart.? Patient was brought to the medical procedure unit and placed in the prone position where a timeout was completed verifying the correct patient, procedure site, position, and planned special equipment using sterile aseptic technique.? Under direct fluoroscopic visualization a 25-gauge Quincke tipped spinal needle was advanced to the designated neural foramen where contrast dye was injected to show adequate spread.? The needle was inserted at level left L4-5. There was no evidence of vascular or adverse uptake.? Epidural spread was appreciated.? The above- mentioned injectate was then placed in a 1.5 mL aliquot preceded by negative aspiration.? The needle was removed. The needle was inserted and the procedure repeated at level left L5-S1.? The surgery site was covered.? Patient was taken to the postprocedural recovery area and monitored for an appropriate length of time before found suitable for discharge in the accompaniment of a responsible adult. Anesthesia: Local Surgeon: Ruth Pfeiffer Pathology: none sent Condition: stable Disposition: no change
[2024-09-12] MEDS: IOHEXOL 240 MG/ML - 10 ML VIAL 24 MG INJ (07:42)
[2024-09-12] MEDS: BUPIVACAINE HCL 0.25% PF 25 MG/10 ML VIAL INJ (07:42)
[2024-09-12] MEDS: 0.9 % SODIUM CHLORIDE 10 ML SYRINGE - SALINE FLUSH INJ (07:42)
[2024-09-12] MEDS: TRIAMCINOLONE ACETONIDE 40 MG/ML VIAL 80 MG INJ (07:42)
[2024-09-12] MEDS: LIDOCAINE HCL 2% 400 MG/20 ML MDV 3 ML INJ (07:42)
== END 2024-09-12 07:44 | disposition home or self-care (01) ==
LOC: SURGOUT 06:44
PROVIDERS: Family Provider Internal Medicine; PCP Internal Medicine; Visit Provider Anesthesiology
DX: M48.062 Spinal stenosis, lumbar region with neurogenic claudication (principal); E11.9 Type 2 diabetes mellitus without complications; Z79.84 Long term (current) use of oral hypoglycemic drugs
CPT/HCPCS: 36415; 64483; 64484; 82948; J0665; J3301; Q9966

== ENCOUNTER 2024-09-22 14:53 | Outpatient (OUT) | payer BC, SELFPAY ==
--- NOTE | 2024-09-22 15:13 | P.CN_ITS ---
Consult Note: HPI Data of Consult Patient: known to practice within the last 3 years Consult date: 07/04/24 Requesting Physician: Shaneka Pena NP Primary Care Provider: Enzo Vasques DO Family Provider: Enzo Vasques DO Consult Narrative Reason for consult: low back, left leg pain Narrative: 23yom who presents for evaluation. 2 year history of low back, left leg pain. previous mri in 2021 shows multilevel disc herniation and ddd. uses tylenol , baclofen, and mobic as needed. denies adverse med side effects. recently completed lumbar MRI with results below. pain today 3-4/10 staying at 4/10 at the most. Pain increased with standing, walking, lifting, housework, bending, and activity. pain improved with sleep and sitting. 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 - Personal history of other benign neoplasm (ICD-10) Sleep apnea ?G47.30 - Sleep apnea, unspecified (ICD-10) Asthma ?J45.909 - Unspecified asthma, uncomplicated (ICD-10) Pre-diabetes ?R73.03 - Prediabetes (ICD-10) Surgical History (Updated 09/07/24 @ 08:22 by Holly Campbell RN) History of sinus surgery ?Z98.890 - Other specified postprocedural states (ICD-10) Meds Home Medications and Allergies Home Medications ?Medication ?Instructions ?Recorded ?Confirmed ?Type metformin 850 mg tablet 850 mg PO DAILY 07/04/24 09/12/24 History baclofen 10 mg tablet 10 mg PO BID 07/28/24 09/12/24 History meloxicam 7.5 mg tablet 7.5 mg PO BID 07/28/24 09/12/24 History Allergies Allergy/AdvReac Type Severity Reaction Status Date / Time No Known Drug Allergies Allergy Verified 09/12/24 06:58 Exam Narrative Exam Narrative: Psych-alert and oriented x 3. Attentive and appropriate, constitutionally normal, displays normal mood and affect per situation. There are no obvious deficits in memory, reasoning, or intellect.? Skin-no obvious rashes, bruising, erythema noted to the patient's area of pain.? Extremities- extremities are warm with minimal edema and palpable pulses. Lumbar-tenderness to palpation noted in the lumbar spine and paraspinal musculature. Pain is elicited with flexion, extension, and lateral rotation of the lumbar spine. Range of motion is diminished with these motions. Facet loading maneuvers are positive. Strength-noted to be unremarkable Sensory-no notable sensory deficits in the bilateral lower extremities to touch or pinprick in all dermatomal distributions Gait remains non-antalgic. Results Additional Findings Additional findings: If on a controlled substance or opioids, I have checked an OARRS report on this patient and there are no aberrancies noted in the prescribing history.??If on a controlled substance or opioid a drug screen was completed and reviewed within the last year, and if there has not been a drug screen completed we ordered one today to monitor higher risk, state monitored pain medication use. As part of providing excellent, safe, comprehensive care, the following was completed at our patient's visit: 1. A medication reconciliation and review to ensure accurate knowledge of current/active medications, including asking our patients to inform us about any [id number] medications or herbal remedies/nutritional sup plements/alternative remedies. 2. A review to specifically ensure our patients have had annual screening for screening for depression, screening for tobacco use, and screening for unhealthy alcohol use. For concerning screenings had a discussion with the patient, provided patient education, and recommended follow-up with primary care provider when appropriate. If patient noted with a risk of falling, they received education on strength, gait, and balance training to prevent future risk of falling. Assessment and Plan Assessment and Plan (1) Lumbar stenosis with neurogenic claudication: (2) Lumbar disc displacement without myelopathy: (3) Lumbar radiculopathy: (4) Myalgia: Plan defer lumbar MBBs working towards RFA at this time continue current medications, encouraged to decrease meloxicam to PRN and utilize baclofen more often continue HEP as tolerated f/u 3 months, sooner if needed
--- OUTSIDE RECORDS SUMMARY | 2024-09-22 15:17 | XMS_ITS | CCD ---
Author Organization [facility] CliniSyut Care Team Providers Care Vaccinator Name Role Phone Virginia Enzo Segovia Unavailable [...] Dr. Enzo Diallo Primary Care Teji christofer Vasques, Dr. Enzo Diallo Primary Care Stephy Barbosa, Dr. Dominick Talavera Attending Dolly vailable Familia, Dr. Dominick Talavera Referring Dolly vailable Familia, Dr. Dominick Talavera Referring Dolly vailable Virginia, Dr. Enzo Diallo Primary Care Stephy Barbosa, Dr. oDminick Talavera Attending Dolly vailable Familia, Dr. Dominick Talavera Attending Dolly Barbosa, Dr. Dominick Talavera Referring Dolly gutierrez Vasques, Dr. Enzo Diallo Primary Care Stephy Barbosa, Dr. Dominick Talavera Attending Dolly Barbosa, Dr. Dominick Talavera Admitting Dolly gutierrez Barbosa, Dr. Dominick Talavera Referring Dolly Vasques, Dr. Enzo Diallo Primary Care Dollyshilpi barlowfred Vasques DO, Enzo Diallo Primary Care Provider U oksanaaildinah Virginia SHER, Enzo Diallo Primary Care Provider Enzo Vasques DO Primary Care Provider Uziel ROTHMAN-ONYX CHIP TERRAZZO WORKER, Cristiana Jose Unavailable [phone] Kentrell HUBBARD, Ruth Durán Attending Unavailable DOMINICK BARBOSA Attending Unavailable ENZO VASQUES Primary Care Unavailable DOMINICK BARBOSA Attending Unavailable ENZO VASQUES Primary Care Unavailable DOMINICK BARBOSA Attending ENZO Pereira Primary Care Unavailable Allergies Allergy Classification Reported Allergen(s) Allergy Type Date of Onset Reaction(s) Facility (8 sources) bee pollen Allergy to substance (finding) -Otolaryngolog -[place] Work Phone: (1 source) patient allergy list reviewed by nurse or physicia Propensity to adverse reactions 6 Comment:Done [employer] Other Medications Current Medications Medication Drug Class(es) [...] Start : 12-Nov-2022 End : 18-Mar-2023 Complete cefuroxime 500 mg oral tablet (1 source) Cephalosporin Antibacterial Start: 08-08-2024 take 500 mg by mouth twice daily Cefuroxime Axetil Active 500 MG PO Twice daily 17 04August 08, 2024 12:00am metFORMIN hydrochloride 850 mg oral tablet (3 sources) Biguanide Start: 06-16-2024 End: 06-17-2024 take 850 mg by mouth once daily Metformin Active 850 MG PO Daily June 17, 2024 2:44pm mometasone furoate, bulk, 100 % powder (3 sources) Start: 09-03-2023 mometasone furoate, bulk, 100 % powder Indications: Other chronic sinusitis Compound 2 mg capsule to be added to sinus rinse twice daily. 180 g 3 09/03/2023 Active nabumetone 750 mg oral tablet (7 sources) Nonsteroidal Anti-inflammatory Drug Start: 06-03-2024 take 750 mg by mouth twice daily Nabumetone Active 750 MG PO Twice daily June 02, 2024 11:00pm Start: 06-24-2022 take 1 tablet by edelmira [...] Ordered: 18-Feb-2022 DO Start : 18-Feb-2022 Complete Semaglutide (1 source) Start: 06-09-2024 End: 06-16-2024 Semaglutide (Ozempic) 0.25 mg or 0.5 mg (2 mg/3 mL) pen injector Discontinued 0.25 MG SUBCUT every week 12 30June 08, 2024 11:00pm June 16, 2024 9:01pm for 4 weeks sodium chloride 0.111 meq/ml nasal solution (3 [...] [Asthma, unspecified, unspecified status] Onset: 06-17-2013 Chronic Diabetes mellitus without complication (3 sources) Hyperglycemia; Translations: [Hyperglycemia, unspecified] 06-08-2024 Episodic Immunizations and screening for infectious disease (1 [...] accessory sinuses] 05-15-2023 Episodic Other circulatory disease (2 sources) Elevated blood-pressure reading without diagnosis of hypertension; Translations: [Elevated blood-pressure reading, without diagnosis of hypertension] 06-03-2024 Episodic Other circulatory disease (2 sources) Elevated blood-pressure reading, without diagnosis of hypertension; [...] Chronic Other nutritional; endocrine; and metabolic disorders (3 sources) Obesity; Translations: [Obesity, unspecified] Onset: 06-17-2013 06-03-2024 Chronic Other nutritional; endocrine; and metabolic disorders (1 source) Morbid obesity; Translations: [Morbid (severe) obesity due to excess calories] Chronic Other nutritional; endocrine; and metabolic disorders (2 sources) Obesity, unspecified; Translations: [Obesity, unspecified] 06-03-2024 Chronic [...] Onset: 05-15-2023 Chronic Other upper respiratory infections (7 sources) Acute maxillary sinusitis, unspecified; Translations: [Acute pharyngitis] Onset: 11-06-2015 Episodic Residual codes; unclassified (1 source) Obstructive sleep apnea (adult) (pediatric); Translations: [Obstructive sleep apnea (adult) (pediatric)] Onset: 05-12-2023 Chronic Spondylosis; intervertebral disc disorders; other back problems (5 sources) Other intervertebral disc degeneration, lumbosacral region; Translations: [Disorder of lumbar disc] Onset: 03-05-2022 06-03-2024 Chronic Spondylosis; intervertebral disc disorders; other back problems (20 sources) Radiculopathy, lumbar region; Translations: [Intervertebral disc [...] Ford on 07-19-2024 Laboratory comment Pasquale (Report) [id number] zEwMzNcZnRuYmpcdWMxIHtccn ShLHach1JrO5ViPxMfSAocllU iLRIaYknotapzMVPzGBC6meHh QDYpOOnsYFWqACdmEx0haKAjs InfLwRnESVyr8kypgICUEbxWC DJZEj5r4maSWUoTaG7cKXrRYp wB1dohaMtrFOcR3Hko1ZyCAn6 hY17ZHAztO0miFIcCYjaksKpB qI7WSnbNYZeEpW7AIRvcXTiCS VaJ8nsVXJiDJwwSOKiMIqpnRC bIUO2xJzfo4A8eNYcsXFpkApk ZxSvNbOtLeINg4BzCMm9wByoI 0ZxBTFmOoW8gSHxXFGpCKwvOV XeMUIjilB1cQ21AQjrwqA5yWW yu2Psu92qj269dF7zpODvFRU7 LPKbEFVtpRNuLQIfHJU0HSLlc DZsM3xrOiXnvWLaD2ZyIlEtfU GhH2HgUmUicRMsR7VlXiIsjCF hVDQodJO6CCsys439SKF3VfEu EE7yS1Nqc9Z9wZ8smNInTHTlv PUfGxOmJMQfyz3fnOIjQModn8 SrPOW1lfH0sIBqzEJnIVFsVB8 6Ehnli2FcLdqgWEP3HDWrknRd e1Gtd5jfMoPfzdMvX8dyB2FpQ UByFMVsLVPkElZfyuAqa6Aaq5 XxmEMoyUg1f8zgHRJbJMFukMh ez7fqHNL4BMYxT6H8kLNwx4pq FFihUTJiyUG2egX1VSajXDFye wL5cjK0LEygBMOsmUO2xcJ4CQ amCKDyPrA5anU7DIzjOPDmJEH 2WuCyWJQoz7JbqehvTlNrn5Tt wWTmAHreW80pc529NEHyybJnW 1xwbGFpblxwbGFpblxmMFxmcz C8RZNkWCBtUDkjDWHpRZDfMlX cbGFuZzEwMzNcaGljaFxmMVxk JrYtDPWmJSviG3zaYcWbQsOnO NMWjBJ2eMEzw7kakyO6zWQzZN 7wAVDgxCJynlQji2Z8TPO4fAP xmP1zhASyRGMbwKZxlrGyyj04 xNTirIE9IJYaBJNctPKrqL2zS JErRLEAeW3ugCGIehPqcuLxTR OhqNqeqr6NoZBliu6pnSDyE5B ydGlmaWVzIHRoYXQgdGhleSBo MOIaDKJsksmmf2GfWLTnbDGqB 6PiDN4pHKTmkl55 [facility] Work Phone: Pathology report Cancer Narrative Surgical Pathology Case: [id number] Authorizing Provider: Dominick Barbosa MD Collected: 07/13/20241404 Ordering Location: [facility] Received: 07/13/20241404 Pathologist: Shakir Ford DDS Specimen: NASAL MASS RIGHT BIOPSY [facility] Work Phone: Pathology report final diagnosis Narrative l8clyNPfFVRwlPQrIZaiWtcup kWhHIDqnCBbC3KrmektYHjaWH 0fGE0ycXwbsWJygVXfVLKlOlC qy0hob972oEHvc9lxJJNQslvi gQj8iZagO62yo0N6AukfV9slN OQuFMbhMTDxOYjuxKAuBVh0TX BhcGVydzEyMjQwXHBhcGVyaDE 7SCEzGY6wjmdxXCgyUXtjNZRr guF6WFEyaUChM3QeNWRwML2uw geaJXY5UFlgCFJfCVP0AjLtVL Qpn7Wihho2CxSpySf0f9pjAUI nPBVqmQuoa7zsVLT9JRZmpUFp Z8pdkB6vSVHsPA6regofa6ofL HrwXNgtACVosLL0haU2PTLtqZ IgH2KqhK5bSWWkLIXqqgKjzFp pwS2qYmCiCmmlPnQuKlAcLGms V3X0tRM9XFNqwNakvXVqGUBtW ILdsL1ur3i9UJGmvibsbuJbb3 eyTBFugc3hRORmrSVgtNKbc1L bPI0gKVXoqs4mxQVuoE8huJSl xBI6pE6aWYombBtcFLIlySD1p 7QnEVM5ts0sQZtgD76hs8utfU XduNJ9xNZyNWLprv5rYIJwgHZ qniMjQH6dRHXnkrxkxZ2tjLJy XHBhcn0= [facility] Work Phone: Pathology report gross observation Narrative i8ldrGOjVYSohBFTQQY8EXRsD G2ubRgsmUh0uPhcGCMqjiV0iJ OnPTlnc6cpAJZ9e5lagmBZPmn mTQEoGU5qSQxyDLTiUE5yHwTs XGRlZmYxXHBhcGVydzEyMjQwX NFugSLzyRF7IGJyAS7abxmmQX nxIGzcDEWvehM8GKWwfTCfB2V gFBWmUH0wilczATY3DYEEKynt Pc0qaXBhiDBODzulIgBmVePiU SXyBKWgAZWgk1ghmfELMTmaDA JPFCl2BTs3OZXjYORgxJAxq6L 1YTian3nkc9KlILUkEJs6mR4A VbguROQ4IAPTRvsdKjoqbXwqf 2VjdCBcXHNnIFxcaWQgNTEwMD ZpGLdxYvANFmQnZdVtVPV4VIu 4DiPjHYp5VEktZiFVNRX9UVp1 VlljLSp2JNoqVViowSLvGHYcN BAmKCEiFDzjcqK0k1blTPTtwH SgLRG0GYnnx9cqMOkhSWI9KGL iBdIjSPMwMF3YLoOpIQM7FxN1 BoyoRtP6LGb6BVRVNeDkRgMqC NHqJar1TPhrKYm8RXa6TCaCIs IqCBZ7YpOuZLTkPDK4HNN4DQn xnclyWAs5RKEgWNixolEjKOny YgopAZyvB03yhNTqMTQEGkuoy GFpblxlcGljTmVzdERvYzEgDQ hxuQHlpDTeXH4KRDz0weRgPLR eLVZrTuTuPAinAfIhXZj4XYQc zH8nEv8fdDTtqO0uZKhiLfGsQ MXdx6x4hFJ1uMStiYY8gCSxaN nlTA0gwXMmIR4mAFvua4VfbQC hNB85hIYzsePvazCgXb8xd3Ph XW7lz8EyRcvlpOU7XPJmA8e0Y epbAKMkHU73hXTxcYiwPJVfbi OaS8PyNUEvg0TcwSTmpJLtq2A gdGFuLXdoaXRlIHNvZnQgdGlz t4HjRWOfA1BoC3F1gK1dCBImS AYdPZG3MDFsLjK7ROHlSFUopT 3vUJGuMHGksWDrdN3dhqJwrmC vvQGcsEK9RITouN9glS32giTm diTorrHcH1Ebm9D8gRVlEOYik dZBDvlnXHYzRUDszVCXj6TvHP GXPlPKOy9NTSMybTYEQCU6HS7 aAImrBCGhT5EoK9JfgaG3g2gl fKlzv4RpjIGoLK5shCGwDI0ZA SCctiDuJCjrbXfbaJ3uBZv9 [facility] Work Phone: Pathology report relevant history Narrative s2xkhUHcBFEyd5zwTRXqfXNgI vLtNpCbBbZkRjz8RCRsctY7Bk f7XMDkQFqsjY1uAPScWIpyB3x flhGpjLKkDBEmSYi7oB8ftVzf bH5mPaBjYlPxQHTcwIIrcxprF D9czZcigBFyoURkvY49q2c7pY NccGFyIH0= [facility] Work Phone: Resident Review m7vejLGuMZOtrSUoHFww Mlxhb zCnWANsuHTbS6PpsyuiJCfhXA 4gHZ9vgNwyiZIljLZmWGDxVmO nw0ors316pGXfo2qtFBZAyqfm gXz0vJetL05ua2O2DyulX10wq HAzKVF7ETXaJONfyCSkLFQiMP W4KTCmzFXxQ6drZEFaIY2kqak wKAeiXIavLBRubEQ4UTMozNTw D6AjJZCnJZdwMNXwbcg4FwAfB h9reTDrtRxrQRnuBBPsZALzLE xlBBZqVoOhSDblIXrmn5ZjKKB nLC6fjsItgQNnu6Edo2SxYfEw lL7qaT4wheS0KUWdZNTivsjas 7OyDVjfDMTluyt6bhF7iR6kSN xxtZqmoIK9gQ2rz0o4PHGfs3i uIV99VYVPUR4dpCRlR3HgoT8f UIYOXL9ytKGaWUFsvqZcyNOqf Q== [facility] Work Phone: [facility] Work Phone: Surgical pathology studyon 1 Surgical pathology study Pathology report.total SEE COMMENT Surgical Pathology Case: [id number] Authorizing Provider: Dominick Barbosa MD Collected: 07/13/2024 1401 Ordering Location: [facility] Received: 07/13/2024 1404 Pathologist: Shakir Ford DDS Specimen: NASAL MASS [...] is submitted in toto in one cassette. [facility]ulatory Basophils Auto (Bld) [#/Vol] on 06-08-2024 Basophils (Bld) [#/Vol] 0.1 10 3/uL 0.0-0.1 [facility] Basophils/100 WBC Auto (Bld) on 06-08-2024 Basophils/100 WBC (Bld) 1.2 % 0.2-2.0 [facility] Cholesterol in LDL Calc [Mas s/Vol]on 06-08-2024 Cholesterol in LDL [Mass/Vol] 66.0 mg/dL [facility] Comment on above: <100 mg/dl HJHYBVY78 0-129 mg/dl NEAR OR ABOVE DYGHCVW696-156 mg/dl BORDERLINE RDLX204-735 mg/dl HIGH>190 mg/dl VERY HIGH Cholesterol in VLDL Calc [Ma ss/Vol]on 06-08-2024 Cholesterol in VLDL [Mass/Vol] 43.0 mg/dL [facility] Eosinophils/100 WBC Auto (Bl d)on 06-08-2024 Eosinophils/100 WBC (Bld) 3.1 % 0.9-7.0 [facility] Erythrocyte distribution wid th Auto (RBC) [Ratio]on 06-08-2024 Erythrocyte distribution width (RBC) [Ratio] 13.0 % 11.0-15.0 [facility] Estimated glomerular filtrat ion rate (GFR) non- Americanon 06-08-2024 GFR/1.73 sq M.predicted among non-blacks MDRD (S/P/Bld) [Vol rate/Area] mL/min/{1.73_m2} >=60 [facility] Globulin Calc (S) [Mass/Vol] on 06-08-2024 Globulin (S) [Mass/Vol] 4.1 g/dL [facility] Glucose mean value [Mass/vol ume] in Blood Estimated from glycated hemoglobinon 06-08-2024 Average glucose Estimated from glycated hemoglobin (Bld) [Mass/Vol] 128 mg/dL [facility] Hematocrit Auto (Bld) [Volum e fraction]on 06-08-2024 Hematocrit (Bld) [Volume fraction] 45.3 % 42.0-54.0 [facility] Hemoglobin [Mass/volume] in Bloodon 06-08-2024 Hemoglobin (Bld) [Mass/Vol] 14.6 g/dL 14.0-18.0 [facility] Laboratory - Chemistry and C hemistry - challengeon 06-08-2024 Albumin [Mass/Vol] 3.6 g/dL 3.4-5.0 [facility] ALP [Catalytic activity/Vol] 86 U/L 46-116 [facility] ALT [Catalytic activity/Vol] 46 U/L 16-63 [facility] AST [Catalytic activity/Vol] 27 U/L 15-37 [facility] Bilirubin [Mass/Vol] 0.5 mg/dL 0.2-1.0 [facility] Calcium [Mass/Vol] 9.3 mg/dL 8.5-10.1 [facility] Chloride [Moles/Vol] 100 mmol/L 98-107 [facility] Cholesterol [Mass/Vol] 147 mg/dL <=200 [facility] Cholesterol in HDL [Mass/Vol] 38 mg/dL Low 40-60 [facility] Comment on above: > or =60 mg/dl - LOW CARDIOVASCULAR RISK<40 mg/dl - HIGH CARDIOVASCULAR RISK CO2 [Moles/Vol] 28.7 mmol/L 21.0-32.0 [facility] Creatinine [Mass/Vol] 0.93 mg/dL 0.70-1.30 [facility] GFR/1.73 sq M.predicted MDRD (S/P/Bld) [Vol rate/Area] mL/min/{1.73_m2} >=60 [facility] Glucose [Mass/Vol] 121 mg/dL High 74-106 [facility] Potassium [Moles/Vol] 4.2 mmol/L 3.5-5.1 [facility] Protein [Mass/Vol] 7.7 g/dL 6.4-8.2 [facility] Sodium [Moles/Vol] 138 mmol/L 136-145 [facility] Triglyceride [Mass/Vol] 215 mg/dL High <=150 [facility] TSH Qn 3.486 m[IU]/L 0.358-3.740 [facility] Urea nitrogen [Mass/Vol] 16.0 mg/dL 7.0-18.0 [facility] Urea nitrogen/Creatinine [Mass ratio] 17.2 mg/mg [facility] Laboratory - Hematology and Cell countson 06-08-2024 HbA1c (Bld) [Mass fraction] 6.1 % 4.5-6.2 [facility] Comment on above: ADA RECOMMENDED LIMI T 4.0 - 6.0ADA THERAPEUTIC TARGET < 7.0ACTION SUGGESTED> 7.0 Immature granulocytes/100 WBC (Bld) 0.3 % 0.0-0.5 [facility] Leukocytes [#/volume] correc giselle for nucleated erythrocytes in Blood by Automated counon 06-08-2024 WBC corrected for nucl RBC Auto (Bld) [#/Vol] 7.2 10 3/uL 4.0-11.0 [facility] Lymphocytes Auto (Bld) [#/Vo l]on 06-08-2024 Lymphocytes (Bld) [#/Vol] 2.3 10 3/uL 1.2-3.8 [facility] Lymphocytes/100 WBC Auto (Bl d)on 06-08-2024 Lymphocytes/100 WBC (Bld) 32.3 % 20.5-60.0 [facility] MCH Auto (RBC) [Entitic mass ]on 06-08-2024 MCH (RBC) [Entitic mass] 29.0 pg 25.9-34.0 [facility] MCHC Auto (RBC) [Mass/Vol]on 06-08-2024 MCHC (RBC) [Mass/Vol] 32.2 g/dL 29.9-35.2 [facility] MCV Auto (RBC) [Entitic vol] on 06-08-2024 MCV (RBC) [Entitic vol] 89.9 fL 80.0-94.0 [facility] Monocytes Auto (Bld) [#/Vol] on 06-08-2024 Monocytes (Bld) [#/Vol] 0.4 10 3/uL 0.3-0.8 [facility] Monocytes/100 WBC Auto (Bld) on 06-08-2024 Monocytes/100 WBC (Bld) 6.1 % 1.7-12.0 [facility] Neutrophils Auto (Bld) [#/Vo l]on 06-08-2024 Neutrophils (Bld) [#/Vol] 4.1 10 3/uL 1.4-6.5 [facility] Neutrophils/100 WBC Auto (Bl d)on 06-08-2024 Neutrophils/100 WBC (Bld) 57.0 % 43.0-75.0 [facility] No Panel Informationon 06-08 Eosinophils # (Auto) 0.2 10 3/uL 0.0-0.7 [facility] Immature Granulocyte # (Auto) 0.02 10 3/uL 0.00-0.03 [facility] Platelet mean volume Auto (B ld) [Entitic vol]on 06-08-2024 Platelet mean volume (Bld) [Entitic vol] 10.0 fL 9.5-13.5 [facility] Platelets Auto (Bld) [#/Vol] on 06-08-2024 Platelets (Bld) [#/Vol] 355 10 3/uL 150-450 [facility] RBC Auto (Bld) [#/Vol]on RBC (Bld) [#/Vol] 5.04 10 6/uL 4.70-6.10 [facility] Serum or plasma albumin/glob ulin mass ratioon 06-08-2024 Albumin/Globulin [Mass ratio] 0.9 {ratio} [facility] Serum or plasma anion gap de terminationon 06-08-2024 Anion gap [Moles/Vol] 13.5 mmol/L [facility] Serum or plasma total choles terol/high density lipoprotein (HDL) cholesterol mass maria luz 06-08-2024 Cholesterol.total/C holesterol in HDL [Mass ratio] 3.9 {ratio} [facility] Comment on above: 3.3 - 4.4 LOW RISK4. 4 - 7.1 AVERAGE RISK7.1 - 11.0 MODERATE RISK>11.0 HIGH RISK SURGICAL PATHOLOGY RESULTSon 06-04-2023 Pathology Report Name [...] reviewed this case. Diagnostic interpretation performed at [facility] [address] [facility] [address] Clinical History: Physician Contact Number: [id number] Fixative (A): Saline Fixative (B): Saline Clinical [...] specimen is entirely submitted in 7 cassettes. [facility] B: Received in formalin, labeled with the patient's name and hospital number and B, microdebrider contents , are multiple, irregular segments of blood and soft tissue aggregating to 5.4 x 3.7 x 1.5 cm. Parole Hearing Officer sections are submitted in 8 cassettes [facility] Note: Per the pathologist, the rest of specimen B is submitted in toto in 17 additional cassettes. 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 Please feel free to contact my office by calling [phone] with any questions. Provider Impressions 1. 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 Please feel free to contact my office by calling [phone] with any questions. Provider Impressions 1. Inverted [...] day Tylenol TABS Vitals Vital Signs Recorded: [id number] 07:57AM Height6 ft Gkcdzh697 lb 8 oz BMI Utugvkxnfw56.81 kg/m2 BSA Calculated2.89 Tobacco Useb) No Falls [...] (Please see procedure below.) SINONASAL ENDOSCOPY (CPT 64928): To better evaluate the patient's symptoms, sinonasal [...] May 27 2023 8:22AM EST (Author) Normal e|tab Tobacco Screening.on 023 Fall risk assessment a) No falls within the last year [facility] Work Phone: Tobacco use status [facility] b) No [facility] Work Phone: Established Visit (Otolaryng ology)on 05-20-2023 Established Visit (Otolaryngology) Diagnoses/Problems Chronic ethmoidal sinusitis (473.2) (J32.2) Chronic maxillary sinusitis (473.0) (J32.0) 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 Please feel free to contact my office by calling [phone] with any questions. Provider Impressions 1. Inverted [...] asked him to reach out to my unit secretary and we discussed some time parameters [...] TIMES DAILY NEEDED. Vitals Vital Signs Recorded: [id number] 12:20PM Height6 ft Riqinp159 lb 3.2 oz BMI Lbwmzhffmb88.31 kg/m2 BSA Calculated2.91 Tobacco Useb) No PHQ-2 [...] (Please see procedure below.) SINONASAL ENDOSCOPY (CPT 34349): To better evaluate the patient's symptoms, sinonasal [...] May 20 2023 1:59PM EST (Author) Normal e|tab Tobacco Screening.on 023 Adult depression screening assessment No [facility] 4[facility] Work Phone: Fall risk assessment a) No falls within the last year [facility] 4100 Work Phone: Tobacco use status [facility] b) No [facility] 4[facility] Work Phone: No Panel Informationon 05-15 [facility] 4100 Work Phone: Order Reconciliationon 05-15 Order [...] content not included)... Normal [facility] Patient Profile - Preop v3on 05-15-2023 Patient Profile - Preop v3 Patient Profile - Preop: Initial Info: Patient DemographicsName: WALE GREY Date: 2000 Address: [address] [place] [address] JAGDEEP HUTCHINS, [facility] Primary Phone [phone] How to be AddressedDylan Spoken Language PreferredEnglish Stated Reason for Admissioninverted papilloma Primary Contact Name and Numbereve Stern [phone] Limitations on Visitors/Phone Callsnone Medications Brought to Hospitalno General Health: Weight in kg185.1 kilogram(s) Weight in eep436 pound(s) Height in feet5 feet Height in .97 inch(es) Height in cm182.8 centimeter(s) BMI (kg/m2)55.392 square meter Patient or Family Member Reaction to Anesthesiano previous reaction Blood Avoidance/Restrictionsnon e Previous Transfusion Reactionno Health Mgmt: Symptoms/Conditions Managed at Homerespiratory Respiratory Symptoms/Conditionssleep disordered breathing Barriers to Managing Healthnone Relationship/Environ: Lives Withparent(s) Living Arrangementshouse Living Environment Commentsmom Resource/Environmental Concernsnone [facility] Anticipated at Transitionnone Tobacco Use: Tobacco [...] 15-May-2023 11:21 by Ginny Cohen (ARELIS) Normal [facility] Surgical Pathology Depar tmenton 05-15-2023 [facility] Surgical Pathology Department Name WALE GREY Pathologist: [...] reviewed this case. Diagnostic interpretation performed at [place] [address] Clinical History: Physician Contact Number: [phone] Fixative (A): Saline Fixative (B): Saline Clinical [...] specimen is entirely submitted in 7 cassettes. [facility] B: Received in formalin, labeled with the patient's name and hospital number and B, microdebrider contents , are multiple, irregular segments of blood and soft tissue aggregating to 5.4 x 3.7 x 1.5 cm. Parole Hearing Officer sections are submitted in 8 cassettes [facility] Note: Per the pathologist, the rest of specimen B is submitted in toto in 17 additional cassettes. [facility]/05/19/2023 [facility] Department of Pathology [address] [place] [address] Normal [facility] Comment on above: Performed By: #### U [facility] #### [facility] Surgical Pathology Department [address] [place] [address] BASIC METABOLIC PANELon 08-0 Anion gap [Moles/Vol] 16 mmol/L Normal 10 - 20 [facility] Comment on above: Performed By: #### B #### [address] [address] Calcium [Mass/Vol] 9.8 mg/dL Normal 8.6 - 10.6 [facility] Comment on above: Performed By: #### B MP #### [facility] [address] [place] [address] Chloride [Moles/Vol] 101 mmol/L Normal 98 - 107 [facility] Comment on above: Performed By: #### B MP #### [facility] [address] [place] [address] Creatinine [Mass/Vol] 0.81 mg/dL Normal 0.50 - 1.30 [facility] Comment on above: Performed By: #### B MP #### [facility] [address] [place] [address] eGFR MALE >90 Normal >90 [facility] Comment on above: Result Comment: CALC ULATIONS OF ESTIMATED GFR ARE PERFORMED USING THE 2020 CKD-EPI STUDY REFIT EQUATION WITHOUT THE RACE VARIABLE FOR THE IDMS-TRACEABLE CREATININE METHODS. https://jasn.asnjournals.org/content/early/ASN.47165038 88 Performed By: #### B MP #### [facility] [address] [place] [address] Glucose [Mass/Vol] 81 mg/dL Normal 74 - 99 [facility] Comment on above: Performed By: #### B MP #### [facility] [address] [place] [address] HCO3 (Bld) [Moles/Vol] 27 mmol/L Normal 21 - 32 [facility] Comment on above: Performed By: #### B MP #### [facility] [address] [place] [address] Potassium [Moles/Vol] 4.5 mmol/L Normal 3.5 - 5.3 [facility] [facility] Comment on above: Performed By: #### B MP #### [facility] [address] [place] [address] Sodium [Moles/Vol] 139 mmol/L Normal 136 - 145 [facility] Comment on above: Performed By: #### B MP #### [facility] [address] [place] [address] Urea nitrogen [Mass/Vol] 13 mg/dL Normal 6 - 23 [facility] Comment on above: Performed By: #### B MP #### [facility] [address] [place] [address] CBCon 05-12-2023 Erythrocyte distribution width (RBC) [Ratio] 13.0 % Normal 11.5 - 14.5 [facility] Comment on above: Performed By: #### C BC #### [facility] [address] [place] [address] Hematocrit (Bld) [Volume fraction] 47.2 % Normal 41.0 - 52.0 [facility] Comment on above: Performed By: #### C BC #### [facility] [address] [place] [address] Hemoglobin (Bld) [Mass/Vol] 14.4 g/dL Normal 13.5 - 17.5 [facility] Comment on above: Performed By: #### C BC #### [facility] [address] [place] [address] MCHC (RBC) [Mass/Vol] 30.5 g/dL Low 32.0 - 36.0 [facility] Comment on above: Performed By: #### C BC #### [facility] [address] [place] [address] MCV (RBC) [Entitic vol] 94 fL Normal 80 - 100 [facility] Comment on above: Performed By: #### C BC #### [facility] [address] [place] [address] NUCLEATED RBC 0.0 /100 WBC Normal 0.0-0.0 [facility] Comment on above: Performed By: #### C BC #### [facility] [address] [place] [address] Platelets (Bld) [#/Vol] 400 10*3/uL Normal 150 - 450 [facility] Comment on above: Performed By: #### C BC #### [facility] [address] [place] [address] RBC 5.03 x10E12/L Normal 4.50 - 5.90 [facility] Comment on above: Performed By: #### C BC #### [facility] [address] [place] [address] WBC (Bld) [#/Vol] 9.2 10*3/uL Normal 4.4 - 11.3 [facility] Comment on above: Performed By: #### C BC #### [facility] [address] [place] [address] Laboratory - Chemistry and C hemistry - challengeon 05-12-2023 Anion gap [Moles/Vol] 16 mmol/L 10 - 20 [facility] [address] Work Phone: [phone] Calcium [Mass/Vol] 9.8 mg/dL 8.6 - 10.6 [facility] [facility] 4100 Work Phone: [phone] Chloride [Moles/Vol] 101 mmol/L 98 - 107 [facility] [place] [address] Work Phone: [phone] CO2 [Moles/Vol] 27 mmol/L 21 - 32 [facility]-Otolar yng ology-[facility] 4100 Work Phone: [phone] Creatinine [Mass/Vol] 0.81 mg/dL See Below [facility] [place] [address] Work Phone: [phone] Comment on above: Reference Range: 0.5 0 - 1.30 Glucose [Mass/Vol] 81 mg/dL 74 - 99 [facility] [facility] [place] [address] Work Phone: [phone] Potassium [Moles/Vol] 4.5 mmol/L 3.5 - 5.3 [facility] 4100 Work Phone: [phone] Sodium [Moles/Vol] 139 mmol/L 136 - 145 [facility] [facility] 4100 Work Phone: [phone] Urea nitrogen [Mass/Vol] 13 mg/dL 6 - 23 [facility] n [facility] 4100 Work Phone: Laboratory - Hematology and Cell countson 05-12-2023 Erythrocyte distribution width (RBC) [Ratio] 13.0 % See Below [place] [address] Work Phone: Comment on above: Reference Range: 11. 5 - 14.5 Hematocrit (Bld) [Volume fraction] 47.2 % See Below [place] [address] Work Phone: [phone] Comment on above: Reference Range: 41. 0 - 52.0 Hemoglobin (Bld) [Mass/Vol] 14.4 g/dL See Below [place] [address] Work Phone: Comment on above: Reference Range: 13. 5 - 17.5 MCHC (RBC) [Mass/Vol] 30.5 g/dL below low threshold See Below [place] [address] Work Phone: Comment on above: Reference Range: 32. 0 - 36.0 MCV (RBC) [Entitic vol] 94 fL 80 - 100 [place] [address] Work Phone: [phone] Platelets (Bld) [#/Vol] 400 10*3/uL 150 - 450 [place] [address] Work Phone: [phone] RBC (Bld) [#/Vol] 5.03 {x10E12/L} See Below [place] [address] Work Phone: [phone] Comment on above: Reference Range: 4.5 0 - 5.90 WBC (Bld) [#/Vol] 9.2 10*3/uL 4.4 - 11.3 [place] [address] Work Phone: No Panel Informationon 05-12 >90 >90 [facility] 2690 Work Phone: Comment on above: CALCULATIONS OF AMANDA MATED GFR ARE PERFORMED USING THE 2020 CKD-EPI STUDY REFIT EQUATION WITHOUT THE RACE VARIABLE FOR THE IDMS-TRACEABLE CREATININE METHODS.https://jasn.asnjournals.org/content/early/ASN. 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 Provider Impressions 1. Inverted [...] DAILY UNTIL FINISHED. Vitals Vital Signs Recorded: [id number] 01:56PM Height6 ft Xpfvxf716 lb 9 oz BMI Oalpfnqhwf15.63 kg/m2 BSA Calculated2.91 Tobacco Useb) No PHQ-2 [...] Screening.on 023 Adult depression screening assessment No [facility]Otolaryng ology-[employer] Work Phone: Fall risk assessment a) No falls within the last year [employer] Work Phone: Tobacco use status CPHS b) No [facility]tol[facility] o[facility]-[employer] Work Phone: Established Visit (Otolaryng ology)on 01-06-2023 Established Visit (Otolaryngology) Diagnoses/Problems Chronic ethmoidal sinusitis (473.2) (J32.2) Chronic maxillary sinusitis (473.0) (J32.0) Nasal congestion (478.19) (R09.81) 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 Provider Impressions 1. 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 Please feel free to contact my office by calling [phone] with any questions. Provider Impressions 1. Inverted [...] No Reported Medications Vitals Vital Signs Recorded: 84Lvn2350 04:13PM Height6 ft Bkjpeq789 lb 8 oz BMI Thnucvskgi50.89 kg/m2 BSA Calculated2.92 Tobacco Useb) No PHQ-2 [...] (Please see procedure below.) SINONASAL ENDOSCOPY (CPT 58859): To better evaluate the patient's symptoms, sinonasal endoscopy is indicated. After discussion of risks and benefits, and topical decongestion and anesthesia,an endoscope was used to perform (more content not included)... Normal e|tab Tobacco Screening.on 023 Adult depression screening assessment No [employer] Work Phone: Fall risk assessment a) No falls within the last year [employer] Work Phone: Tobacco use status CPHS b) No [employer] Work Phone: MRI LSPINE WO CONon 07-23-20 [...] by: ANTONIO WEINSTEIN Date: 2022-07-23 12:04 Normal [facility] XR LSPINE 2_3 VIEWSon 2021 XR [...] by: ANTONIO WEINSTEIN Date: 2022-02-18 15:30 Normal [facility] Pathology Reporton 0 Pathology Report [id number]:12 7 Normal [facility] Coding Summary.on 08-31-2019 Coding Summary. CODING DATE: 019 FINAL [facility] STATUS: Home (Routine DC) PAYOR: [facility] DESCRIPTION 5155 Level 5 Airway Endoscopy ADMIT DX: REASON FOR VISIT DX: J32.4 Chronic pansinusitis FINAL DX: PRINCIPAL: J32.4 Chronic pansinusitis SECONDARY: J34.89 Other specified disorders of nose and nasal sinuses J45.909 Unspecified asthma, uncomplicated G47.30 Sleep apnea, unspecified Z99.89 Dependence on other enabling machines and devices PYMT PROC APC STAT DESCRIPTION DOCTOR NAME DATE 59011 5155 J1 Nasal/sinus endoscopy, Yolette Govea MD 08/25/2019 surgical with ethmoidectomy; total (anterior and posterior), including sphenoidotomy, with removal of tissue from the sphenoid sinus RT Right side (used to identify procedures performed on the right side of the body) 93494 5155 J1 Nasal/sinus endoscopy, Yolette Govea MD 08/25/2019 surgical, with maxillary antrostomy; with removal of tissue from maxillary sinus RT Right side (used to identify procedures performed on the right side of the body) 18938 5155 J1 Nasal/sinus endoscopy, Yolette Govea MD 08/25/2019 surgical, with frontal sinus exploration, including removal of tissue from frontal sinus, when performed RT Right side (used to identify procedures performed on the right side of the body) 45902 Anesthesia for RashaunLoyd arrington Jr., DO 08/25/2019 procedures on nose and accessory sinuses; not otherwise specified NOTE: The code number assigned matches the documented diagnosis and / or procedure in the patient's chart. However, the narrative phrase printed from the coding software may appear abbreviated, or result in slightly different terminology. Revised Coded By: Ngoc Campo Revised Date Saved: 08/31/2019 10:48 am [facility] Main OR Intraoperative Recor don 08-29-2019 Main OR Intraoperative Record IntraOp Document Type FT Summary Primary Physician: Yolette Govea MD Finalized Date/Time: 08/29/19 09:29:47 Pt. Name: WALE GREY/Sex: 2000 Male Med Rec #: [id number] Physician: Yolette Govea MD Financial #: [id number] Pt. Type: A Room/Bed: Admit/Disch: 08/25/19 09:16:00 [...] Performed Anesthesiologist of Surgeon - Primary Personal Shopper - Primary Record Time In 08/25/19 10:37:00 08/25/19 10:37:00 08/25/19 10:37:00 Time Out 08/25/19 13:03:00 08/25/19 13:03:00 08/25/19 13:03:00 Procedure ANTROSTOMY TURBINECTOMY ANTROSTOMY TURBINECTOMY ANTROSTOMY TURBINECTOMY ETHMOIDECTOMY IM(Right) ETHMOIDECTOMY IM(Right) ETHMOIDECTOMY IM(Right) Comments out of room from 4492-5145. Last Modified By: Patrick INFANTE, Nelly Nguyen RN, Nelly Robison RN 08/25/19 13:05:43 08/25/19 13:05:43 08/25/19 13:05:43 Entry 4 Entry 5 Entry 6 Case Attendee Patrick INFANTE, Nelly Aguilar CST, Enzo Tijerina CST, Sheba Segovia Role Performed Personal Shopper - Primary Scrub - Primary Scrub - Relief Time In 08/25/19 10:37:00 08/25/19 10:37:00 08/25/19 11:40:00 Time Out 08/25/19 13:03:00 08/25/19 13:03:00 08/25/19 12:14:00 Procedure ANTROSTOMY TURBINECTOMY ANTROSTOMY TURBINECTOMY ANTROSTOMY TURBINECTOMY ETHMOIDECTOMY IM(Right) ETHMOIDECTOMY IM(Right) ETHMOIDECTOMY IM(Right) Comments out for lunch at out for lunch at [phone] Last Modified By: Nelly Nguyen RN, RN, [...] DO, Loyd, Given Participants Yolette Govea MD, Krupp RN, Patrick Staton RN, Jeff Strauss CST, Benjamin [...] and tissue Entry 1 Skin Integrity Intact, Tovey, Warm, and Skin Abnormality No Dry Outcomes [...] Last Modified By: Nelly Nguyen RN, RN, Karen M Farris RN, Karen M 08/25/19 11:36:50 08/25/19 11:36:50 08/25/19 11:36:50 Entry [...] Correct Correct Correct Time 08/25/19 11:42:00 By Jomar Kimball RN, Breezy OFFSET LITHOGRAPHIC PRESS OPERATOR, Jeff Marcano CST, Jeff Giraldo CST, Enzo Kimball RN, Nelly Horn RN Outcomes Met? Yes Yes Yes Last Modified By: Nelly Nguyen RN, RN, Andrea L Krupp RN, Andrea L 08/25/19 11:10:00 08/25/19 11:46:28 08/25/19 12:17:06 Entry [...] Morales Patient Status Stable Skin. Condition Intact, Tovey, Warm, and Dry Airway Maintenance Oxygen in Use? Yes Airway Device Simple Mask Flow Rate 10 L/min Outcomes Met? Yes Last Modified By: Jomar Kimball RN 08/25/19 11:48:09 Post-Care Text: The patient is free from signs and symptoms of injury related to transfer/transport General Comments: handoff report given to pacu nurse. Tip RN Medication Administration FT Pre-Care Text: Verifies allergies, administers [...] AIR Quantity 1 Aid PLUS LOWER BODY [[id number]][F] Fluid/Panola Unit Mistral warming system Setting high/43 degrees Body Site Lower anterior torso Last Modified By: Nelly Nguyen RN 08/25/19 10:05:52 Case Comments Finalized By: Melisa Rg CST Document Signatures Signed By: Nelly Nguyen RN 08/25/19 13:06 ALEXIS Hines RN, Andrea 08/26/19 11:19 Melisa Rg CST 08/29/19 09:29 Normal [facility] Operative Reporton 11-22-201 9 Operative Report [...] Yolette Govea Jr., M.D. aek Dictated: 08/25/2019 #[id number] Typed: 08/26/2019 #[id number] cc: Wiliam Carrillo Jr., M.D. [facility] Comment on above: Result Comment: Elec tronically Signed By: Jeferson HUBBARD, Yolette Justin.br\\Date and Time Signed: 08/26/19 09:56 EST Inpatient Patient Summaryon 08-25-2019 Inpatient Patient Summary [facility] Clinical Discharge Instructions PERSON INFORMATION Name: WALE GREY PHYSICIANS Admitting Physician: Yolette Govea MD Attending Physician: Yolette Govea MD PCP: ENZO VASQUES DO Discharge Diagnosis: Chronic pansinusitis Comment: PATIENT EDUCATION INFORMATION Instructions: Post Op Patient Instructions - FT (CUSTOM) Medication Leaflets: Follow up: With: Address: When: Yolette Govea [address] [place] [address] Business (1) In 6 days 08/31/2019 Comments: Call for followup appointment MEDICATION LIST Comment: Normal [facility] Main OR PACU I Recordon 08-06 Main OR PACU I Record PACU Phase I Document Type FT Summary Primary Physician: Yolette Govea MD Finalized Date/Time: 08/25/19 13:39:03 Pt. Name: WALE GREY Paul /Sex: 2000 Male Med Rec #: [id number] Physician: Yolette Govea MD Financial #: [id number] Pt. Type: A Room/Bed: [place] [address] Admit/Disch: 08/25/19 09:16:27 - Institution: Case Times [...] By: Jesenia Phan RN 08/25/19 13:39 Normal [facility] Main OR PACU II Recordon Main OR PACU II Record PACU Phase II Document Type FT Summary Primary Physician: Yolette Govea MD Finalized Date/Time: 08/25/19 15:29:24 Pt. Name: WALE GREY/Sex: 2000 Male Med Rec #: [id number] Physician: Yolette Goeva MD Financial #: [id number] Pt. Type: A Room/Bed: Admit/Disch: 08/25/19 09:16:27 - Institution: Case Times [...] By: Heavenly Hager RN 08/25/19 15:29 Normal [facility] Main OR Preoperative Recordo n 08-25-2019 Main OR Preoperative Record PreOp Document Type FT Summary Primary Physician: Yolette Govea MD Finalized Date/Time: 08/25/19 11:07:39 Pt. Name: SHMUELWALE D.O.B./Sex: 2000 Male Med Rec #: [id number] Physician: Yolette Govea MD Financial #: [id number] Pt. Type: A Room/Bed: [place] [address] Admit/Disch: 08/25/19 09:16:27 - Institution: Case Times [...] By: Nelly Nguyen RN 08/25/19 11:07 Normal [facility] Operative Reporton Operative Report Patient: Ministerio GREY Age: 18 years Sex: Male : 2000 Associated Diagnoses: None Author: Yolette Govea MD Postoperative Information Procedure: RT IG microdebrider assisted MMA with r/o tissue, total ethmoidectomy, frontal sinusotomy, sphenoidotomy with r/o tissue Preoperative Diagnosis: Chronic pansinusitis (FMN78-MU J32.4, Working, Medical). Postoperative Diagnosis: Chronic pansinusitis (STL37-CJ J32.4, Discharge, Medical). Performed by: Yolette Govea MD. 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 Specimens Removed: nasal polyp, RT sinus contents, RT sinus sock, RT max sinus tissue, RT sphenoid tissue. Estimated Blood Loss: 100 ml. Medications Complications: None. Normal [facility] Comment on above: Result Comment: Elec tronically Signed By: Yolette Govea MD\\.br\\Date and Time Signed: 08/25/19 13:21 EST Patient Education - Texton 1 10-25-2018 Patient Education - Text Normal [facility] Coding Summary.on 08-22-2019 Coding Summary. CODING DATE: 019 FINAL [facility] STATUS: Home (Routine DC) PAYOR: [facility] [employer] DESCRIPTION 5521 Level 1 Imaging without [...] CphT Date Saved: 08/22/2019 11:03 am Normal [facility] Auto Diffon 08-19-2019 Basophils/100 WBC (Bld) 1.4 % Normal 0.0-2.0 [facility] Comment on above: Order Comment: Order Added by Discern Expert. Performed By: #### 2 [id number], [id number], [id number] #### [facility] [address] [place] [address] Basophils/Leukocyte s Auto (Bld) [Pure # fraction] 0.2 E9/L Normal 0.0-0.2 [facility] Comment on above: Order Comment: Order Added by Discern Expert. Performed By: #### 2 643727, 6413783, [id number] #### [facility] [address] [place] [address] Eosinophils/100 WBC (Bld) 1.1 % Normal 0.0-8.0 [facility] Comment on above: Order Comment: Order Added by Discern Expert. Performed By: #### 2 126089, 1310961, [id number] #### [facility] [address] [place] [address] Eosinophils/Leukocy carlos Auto (Bld) [Pure # fraction] 0.1 E9/L Normal 0.0-0.5 [facility] Comment on above: Order Comment: Order Added by Discern Expert. Performed By: #### 2 009666, 6924448, [id number] #### [facility] [address] [place] [address] Lymphocytes/100 WBC (Bld) 21.2 % Normal 14.0-50.0 [facility] Comment on above: Order Comment: Order Added by Discern Expert. Performed By: #### 2 388361, 3519821, [id number] #### [facility] [address] [place] [address] Lymphocytes/Leukocy carlos Auto (Bld) [Pure # fraction] 2.3 E9/L Normal 1.0-4.0 [facility] Comment on above: Order Comment: Order Added by Discern Expert. Performed By: #### 2 344359, 6440449, [id number] #### [facility] [address] [place] [address] Monocytes/100 WBC (Bld) 5.4 % Normal 4.0-14.0 [facility] Comment on above: Order Comment: Order Added by Discern Expert. Performed By: #### 2 191898, 8902052, [id number] #### [facility] [address] [place] [address] Monocytes/Leukocyte s Auto (Bld) [Pure # fraction] 0.6 E9/L Normal 0.2-1.0 [facility] Comment on above: Order Comment: Order Added by Discern Expert. Performed By: #### 2 687598, 7270236, [id number] #### [facility] [address] [place] [address] Neutrophils/100 WBC (Bld) 70.9 % Normal 36.0-75.0 [facility] Comment on above: Order Comment: Order Added by Discern Expert. Performed By: #### 2 342696, 2357644, [id number] #### [facility] [address] [place] [address] Neutrophils/Leukocy carlos Auto (Bld) [Pure # fraction] 7.6 E9/L High 2.0-7.5 [facility] Comment on above: Order Comment: Order Added by Discern Expert. Performed By: #### 2 767018, 5875945, 43843544 #### [facility] [address] [place] [address] BUNon 08-19-2019 Urea nitrogen [Mass/Vol] 12 mg/dL Normal 5-21 [facility] Comment on above: Performed By: #### 2 873869, 7865466, 52086602, 7153186, 1120127 #### [facility] [address] [place] [address] CBC w/ Auto Diffon 9 Erythrocyte distribution width (RBC) [Ratio] 14.1 % Normal 10.9-14.2 [facility] Comment on above: Performed By: #### 2 988874, 1010859, 83189298 #### [facility] [address] [place] [address] Hematocrit (Bld) [Volume fraction] 48.4 % Normal 37.7-49.0 [facility] Comment on above: Performed By: #### 2 029482, 8953561, 61642755 #### [facility] [address] [place] [address] Hemoglobin (Bld) [Mass/Vol] 16.2 g/dL Normal 13.5-17.5 [facility] Comment on above: Performed By: #### 2 728321, 3880692, 11216519 #### [facility] [address] [place] [address] MCH (RBC) [Entitic mass] 29.0 pg Normal 27.0-34.0 [facility] Comment on above: Performed By: #### 2 281290, 3023262, 44816770 #### [facility] [address] [place] [address] MCHC (RBC) [Mass/Vol] 33.6 g/dL Normal 31.4-36.0 [facility] Comment on above: Performed By: #### 2 315272, 7005869, 18603163 #### [facility] [address] [place] [address] MCV (RBC) [Entitic vol] 86.5 fL Normal 80.0-100.0 [facility] Comment on above: Performed By: #### 2 382588, 8202876, 68570944 #### [facility] [address] [place] [address] Platelet mean volume (Bld) [Entitic vol] 8.7 fL Normal 6.4-10.8 [facility] Comment on above: Performed By: #### 2 658040, 3336954, 59396193 #### [facility] [address] [place] [address] Platelets (Bld) [#/Vol] 351.0 E9/L Normal 150.0-500.0 [facility] Comment on above: Performed By: #### 2 602563, 1472875, 92220228 #### [facility] [address] [place] [address] RBC (Bld) [#/Vol] 5.6 E12/L Normal 4.3-5.9 [facility] Comment on above: Performed By: #### 2 152283, 7547536, 46726085 #### [facility] [address] [place] [address] WBC corrected for nucl RBC Auto (Bld) [#/Vol] 10.7 E9/L Normal 4.0-11.0 [facility] Comment on above: Performed By: #### 2 567128, 5460843, [id number] #### [facility] [address] [place] [address] Creatinineon 08-19-2019 Creatinine [Mass/Vol] 0.8 mg/dL Normal 0.5-1.3 [facility] Comment on above: Performed By: #### 2 307023, 2845870, 19481707, 7128463, 3261357 #### [facility] [address] [place] [address] Glucoseon 08-19-2019 Glucose [Mass/Vol] 97 mg/dL Normal 55-199 [facility] Comment on above: Performed By: #### 2 910261, 1953097, 39383210, 5661638, 2136548 #### [facility] [address] [place] [address] Lyteson 08-19-2019 Anion gap [Moles/Vol] 14 mmol/L Normal 6-16 [facility] Comment on above: Performed By: #### 2 785192, 9752529, 27390705, 7095936, 1230652 ####[facility] [address] [place] [address] Chloride [Moles/Vol] 104 mmol/L Normal 101-111 [facility] Comment on above: Performed By: #### 2 180633, 4425552, 02262200, 9984042, 0825271 ####[facility] [address] [place] [address] CO2 [Moles/Vol] 25 mmol/L Normal 21-31 [facility] Comment on above: Performed By: #### 2 090346, 2107470, 86356075, 1299614, 5152901 ####[facility] [address] [place] [address] Potassium [Moles/Vol] 3.5 mmol/L Normal 3.5-5.3 [facility] Comment on above: Performed By: #### 2 780916, 6841778, 48229403, 1920138, 0206703 ####[facility] [address] [place] [address] Sodium [Moles/Vol] 139 mmol/L Normal 135-145 [facility] Comment on above: Performed By: #### 2 780017, 4604491, 44505612, 2389769, 1025775 ####[facility] [address] [place] [address] PT & PTTon 08-19-2019 aPTT Coag (PPP) [Time] 35.7 second(s) Normal 25.1-36.5 [facility] Comment on above: Result Comment: Hepa rin therapeutic range (represented by Anti-Factor Xa activity of 0.2 - 0.4 U/mL) corresponds to PTT of 56.6 - 109.0 sec. Performed By: #### 2 769811, 8184139, 35185981 #### [facility] [address] [place] [address] INR Coag (PPP) [Relative time] 1.0 {INR} [facility] Comment on above: Result Comment: INR results are specifically intended to assess patients stabilized on long-term Anticoagulation therapy suggested INR?s ?Less Intensive Anticoagulation? 2.0 ? 3.0 Conventional Range 3.0 ? 4.5 Performed By: #### 2 [id number], [id number] #### [facility] [address] [place] [address] PT Coag (PPP) [Time] 11.6 second(s) Normal 10.2-12.9 [facility] Comment on above: Performed By: #### 2 [id number], [id number] #### [facility] [address] [place] [address] XR Chest 2 Viewson 9 XR Chest [...] M.D. Transcribed by: JAZMYNE Technologist: ZHANNA Normal [facility] eGFRon 08-19-2019 GFR/1.73 sq M predicted among blacks MDRD (S/P/Bld) [Vol rate/Area] mL/min/{1.73_m2} Normal >=59 [facility] Comment on above: Order Comment: Order added by Discern Expert. Result Comment: eGFR is race adjusted. AA=. Performed By: #### 2 [id number] #### [facility] [address] [place] [address] GFR/1.73 sq M predicted among non-blacks MDRD (S/P/Bld) [Vol rate/Area] mL/min/{1.73_m2} Normal >=59 [facility] Comment on above: Order Comment: Order added by Discern Expert. Result Comment: [employer] Developer niall kidney disease could be indicated at eGFR's of less than 60 mL/min/1.73m2. Kidney failure is indicated at less than 15 mL/min/1.73m2. Performed By: #### 2 [id number], [id number] #### [facility] [address] [place] [address] Coding Summary.on 08-08-2019 Coding Summary. CODING DATE: 019 FINAL [facility] STATUS: Home (Routine DC) PAYOR: [employer] DESCRIPTION 5522 Level 2 Imaging without [...] CphT Date Saved: 08/08/2019 12:24 pm Normal [facility] CT Maxillofacial w/o Contras ton 08-07-2019 [...] M.D. Transcribed by: JAZMYNE Technologist: YOSEPH Parr [facility] Vital Signs Date Time Vital Sign Value Performing Clinician Facility 07-13-2024 13:18040 Body height 182.9 cm Dominick Barbosa MD Work Phone: [facility] 07-13-2024 13:18-0400 Body mass index (BMI) [Ratio] 56.42 kg/m2 Dominick Barbosa MD Work Phone: [facility] 07-13-2024 13:18040 Body weight 188.7 kg Dominick Barbosa MD Work Phone: [facility] 06-03-2024 14:05040 Body height 182.25 cm [facility] 06-03-2024 14:05-0400 Body mass index (BMI) [Ratio] 57.3 kg/m2 [facility] 06-03-2024 14:05040 Body weight 190.5 kg [facility] 06-03-2024 14:05-0400 Diastolic blood pressure 91 mm[Hg] [facility] 06-03-2024 14:05-0400 Heart rate 83 /min [facility] 06-03-2024 14:05-0400 Respiratory rate 12 /min [facility] 06-03-2024 14:05-0400 Systolic blood pressure 146 mm[Hg] [facility] 03-09-2024 15:02-0400 Body height 182.9 cm Dominick Barbosa MD Work Phone: [facility] 03-09-2024 15:02-0400 Body mass index (BMI) [Ratio] 56.32 kg/m2 Dominick Barbosa MD Work Phone: [facility] 03-09-2024 15:02-0400 Body weight 188.38 kg Dominick Barbosa MD Work Phone: [facility] 10-06-2023 12:15-0500 Body height 182.25 cm Enzo Ball Other [employer] [facility] [employer] Other 10-06-2023 12:15-0500 Body mass index (BMI) [Ratio] 54.62 kg/m2 Enzo Ball Other [employer] [facility] [employer] Other 10-06-2023 12:15-0500 Body weight 181.44 kg Enzo Ball Other [employer] [facility] [employer] Other 09-02-2023 15:29-0500 Body height 182.9 cm Dominick Barbosa MD Work Phone: [facility] 09-02-2023 15:29-0500 Body mass index (BMI) [Ratio] 54.37 kg/m2 Dominick Barbosa MD Work Phone: [facility] 09-02-2023 15:29-0500 Body weight 181.85 kg Dominick Barbosa MD Work Phone: [facility] 05-27-2023 07:57-0400 Body height 182.88 cm Enzo Luca Ball Work Phone: [facility] Work Phone: 05-27-2023 07:57-0400 Body mass index (BMI) [Ratio] 55.81 kg/m2 Enzo Vasques Work Phone: [facility] 4[address] Work Phone: 05-27-2023 07:57-0400 Body surface area Derived from formula 2.89 m2 Enzo Vasques Work Phone: [facility] [address] Work Phone: 05-27-2023 07:57-0400 Body weight 186.66 kg Enzo Vasques Work Phone: [facility] 4[address] Work Phone: 05-27-2023 07:57-0400 0 1 Enzo Vasques Work Phone: [facility] 4[address] Work Phone: Comment on above: [employer] 05-20-2023 12:20-0400 Body height 182.88 cm Enzo Vasques Work Phone: [facility] [address] Work Phone: 05-20-2023 12:20-0400 Body mass index (BMI) [Ratio] 56.31 kg/m2 Enzo Vasques Work Phone: [facility] [address] Work Phone: 05-20-2023 12:20-0400 Body surface area Derived from formula 2.91 m2 Enzo Vasques Work Phone: [facility] [address] Work Phone: 05-20-2023 12:20-0400 Body weight 188.33 kg Enzo Vasques Work Phone: [facility] Work Phone: 05-15-2023 11:49-0400 Body temperature 96.8 [degF] Dominick Barbosa MD Work Phone: [facility] 05-15-2023 11:49-0400 Diastolic blood pressure 91 mm[Hg] Dominick Barbosa MD Work Phone: [facility] 05-15-2023 11:49-0400 Heart rate 82 /min Dominick Barbosa MD Work Phone: [facility] 05-15-2023 11:49-0400 Respiratory rate 16 /min Dominick Barbosa MD Work Phone: [facility] 05-15-2023 11:49-0400 Systolic blood pressure 139 mm[Hg] Dominick Barbosa MD Work Phone: [facility] 05-15-2023 11:18-0400 Body height 182.8 cm Dominick Barbosa MD Work Phone: [facility] 05-15-2023 11:18-0400 Body mass index (BMI) [Ratio] 55.39 kg/m2 Dominick Barbosa MD Work Phone: [facility] 05-15-2023 11:18-0400 Body weight 185.1 kg Dominick Barbosa MD Work Phone: [facility] 03-18-2023 13:56-0400 Body height 182.88 cm Enzo Vasques Work Phone: EF-Juvybjxikhdtyp-Kp [place] Work Phone: 03-18-2023 13:56-0400 Body mass index (BMI) [Ratio] 56.63 kg/m2 Enzo Vasques Work Phone: YL-Vsovjslxokihpm-Td [place] Work Phone: 03-18-2023 13:56-0400 Body surface area Derived from formula 2.91 m2 Enzo Vasques Work Phone: QX-Aylnhgdkrtayub-Mj [place] Work Phone: 03-18-2023 13:56-0400 Body weight 189.41 kg Enzo Segovia Ball Work Phone: VI-Euogohurhbhkig-Pr [place] Work Phone: 03-18-2023 13:56-0400 0 1 Enzo Segovia Ball Work Phone: QY-Zjetopzkbsypma-Na [place] Work Phone: Comment on above: [employer] 11-12-2022 16:13-0500 Body height 182.88 cm Enzo Segovia Ball Work Phone: MM-Wthxhudqqtexki-Xa [place] Work Phone: 11-12-2022 16:13-0500 Body mass index (BMI) [Ratio] 56.89 kg/m2 Enzo Segovia Ball Work Phone: ZT-Zqtdlhefhrrrit-Qr [place] Work Phone: 11-12-2022 16:13-0500 Body surface area Derived from formula 2.92 m2 Enzo Segovia Ball Work Phone: MC-Jzeebfbczoklgx-Ku [place] Work Phone: 11-12-2022 16:13-0500 Body weight 190.29 kg Enzo Segovia Ball Work Phone: ZL-Jrwdsdsdyinfks-Cx [place] Work Phone: 11-12-2022 16:13-0500 0 1 Enzo Segovia Ball Work Phone: ZS-Kzxwxujblftunw-Ax [place] Work Phone: Comment on above: [employer] Encounters Encounter Date Encounter Type Care Provider Facility Start: 08-08-2024 End: 08-08-2024 ambulatory [facility] Work Phone: Start: 08-08-2024 End: 08-08-2024 Patient encounter procedure [facility] Physician [facility] Work Phone: Start: 07-13-2024 End: 07-13-2024 Office outpatient visit 15 minutes Dominick Barbosa MD Work Phone: [facility] Comment on above: Post-nasal drainage (Primary Dx); Chronic maxillary sinusitis; Nasal congestion Start: 07-13-2024 End: 07-13-[facility] Start: 07-04-2024 End: 07-04-2024 ambulatory Ruth Pfeiffer MD Facility:[facility] Start: 06-08-2024 Non-patient / Non-visit [facility] Physician [facility] [employer] Work Phone: Start: 06-03-2024 Patient encounter status [facility] Start: 06-03-2024 End: 06-03-2024 ambulatory [facility] Work Phone: Start: 06-03-2024 End: 06-03-2024 Encounter for general adult medical examination without abnormal findings [facility] Start: 06-03-2024 End: 06-03-2024 Patient encounter procedure [facility] Work Phone: Start: 03-09-2024 End: 03-09-2024 ambulatory [facility] Ambulatory Start: 03-09-2024 End: 03-09-2024 Office outpatient visit 15 minutes Dominick Barbosa MD Work Phone: [facility] Comment on above: Chronic ethmoidal si nusitis (Primary Dx); Chronic maxillary sinusitis Start: 10-06-2023 End: 10-06-2023 ambulatory [facility] Other [employer] Other Start: 10-06-2023 Office outpatient vi sit 15 minutes Enzo Vasques [facility] Start: 09-02-2023 End: 09-02-2023 Office outpatient visit 15 minutes Dominick Barbosa MD Work Phone: [facility] Comment on above: Chronic ethmoidal si nusitis (Primary Dx); Other chronic sinusitis; Chronic sphenoidal sinusitis Start: 09-02-2023 End: 09-02-2023 ambulatory DOMINICK BARBOSA [facility] Ambulatory Start: 06-07-2023 Chart Update Enzo morales Work Phone: [facility]rxaeoi[facility] Work Phone: Start: 05-27-[address] Dominick Cerda Facility:[id number] Start: 05-20-2023 Postop follow up vis it related to original px Enzo Vasques Work Phone: KH[facility]Smdspxqcdbbrpl[facility] 4[facility] Work Phone: Start: 05-20-[address] Enzo Vsaques Facility:[id number] Start: 05-15-2023 End: 05-15-[address] Dominick Barbosa Facility:[facility] Start: 05-15-2023 AUDIT Enzo morales Work Phone: YQ-Ykdfltqutxgekw[facility] 4[facility] Work Phone: Start: 05-15-2023 End: 05-15-2023 Subsequent hospital visit by physician Dominick Barbosa MD Work Phone: [facility] Comment on above: Chronic ethmoidal si nusitis; Benign neoplasm of middle ear, nasal cavity and accessory sinuses; Chronic sinusitis, unspecified Start: 05-12-[address] Dominick Cerda Facility:[facility] Start: 05-12-2023 Encounter for preprocedural laboratory examination Dr. Dominick Barbosa [facility] Start: 03-18-2023 Office outpatient vi sit 15 minutes Enzo Vasques Work Phone: PC[facility]Moywmaldigrcma[facility] 4[facility] Work Phone: Start: 03-18-2023 Patient encounter procedure Enzo Vasques Work Phone: DH-Eadsxxmlursgxi-Ihdu [place] Work Phone: Start: 03-18-[address] Dominick Cerda Facility:[id number] Start: 01-07-2023 End: 01-07-2023 ambulatory Enzo Vasques Other [employer] Other Start: 01-07-2023 Telephone encounter Enzo Vasques [facility] Start: 01-06-2023 Office outpatient vi sit 25 minutes Enzo Vasques Work Phone: [facility] 4100 Work Phone: Start: 01-06-[address] Dominick Cerda Facility:[id number] Start: 01-05-2023 End: 01-05-2023 ambulatory Enzo Vasques Other [employer] Other Start: 01-05-2023 Office outpatient vi sit 15 minutes Enzo Vasques [facility] Start: 11-19-2022 End: 11-20-[address] DOCTOR PARISI Facility:H1 Start: 11-12-2022 Office outpatient vi sit 25 minutes Enzo Vasques Work Phone: [facility] 4100 Work Phone: Start: 11-12-2022 Patient encounter procedure Enzo Vasques Work Phone: [facility] Work Phone: Start: 11-12-[address] Dominick Cerda Facility:[id number] Start: 07-29-2022 End: 08-23-[address] ENZO VASQUES Facility:H1 Start: 07-22-2022 End: 07-23-[address] ENZO VASQUES Facility:H1 Start: 06-24-2022 Well child visit Enzo Vasques Other [employer] Other Start: 03-20-2022 End: 04-25-[address] [...] 2) Zoste r Vaccines (1 of 2) [facility] Start: 01-11-2025 End: 01-11-2025 Patient encounter procedure 01/11/2025 3:00 PM EDT Office Visit [facility] [address] [place] [address] Dominick Barbosa MD [address] [place] [address] [facility] Start: 07-13-2024 End: 07-13-2024 Patient encounter procedure 07/13/2024 1:15 PM EDT Office Visit [facility] [address] [place] [address] Dominick Barbosa MD [address] [place] [address] [facility] Start: 06-05-2024 COVID-19 Vaccine ( season) COVID-19 Vaccine ( season) [facility] Start: 06-05-2024 Influenza vaccination [facility] Start: 03-09-2024 End: 03-09-2024 Patient encounter procedure 03/09/2024 2:45 PM EDT Office Visit [facility] [address] [place] [phone] Dominick Barbosa MD [address] [place] [address] [facility] Start: 09-02-2023 FUV, Provider: Dominick Barbosa, Status: Pen, Time: 2:45 PM FUV, Provider: Dominick Barbosa, Status: Pen, Time: 2:45 PM NN-Opvmivtqqrzczk[facility] 4100 Work Phone: Start: 09-02-2023 End: 09-02-2023 Patient encounter procedure 09/02/2023 2:45 PM EST Office Visit [facility] [address] [place] [phone] Dominick Barbosa MD [address] [place] [address] [facility] Start: 06-05-2023 COVID-19 Vaccine ( season) COVID-19 Vaccine ( season) [facility] Start: 06-05-2023 Influenza vaccination Influenz a Vaccine (#1) [facility] Start: 05-27-2023 POV, Provider: Dominick Barbosa, Status: Pen, Time: 10:30 AM POV, Provider: Dominick Barbosa, Status: Pen, Time: 10:30 AM YP-Xvpmqrzxhyfyvz-[place] Work Phone: Start: 05-20-2023 POV, Provider: Dominick Barbosa, Status: Pen, Time: 12:30 PM POV, Provider: Dominick Barbosa, Status: Pen, Time: 12:30 PM AJ-Ebswluhuhbaxka-Aaof [place] Work Phone: Start: 12-22-2022 DTaP/Tdap/Td Vaccine s (7 - Td or Tdap) DTaP/Tdap/Td Vaccines (7 - Td or Tdap) [facility] Start: 2022 DTaP/Tdap/Td Vaccine s (1 - Tdap) DTaP/Tdap/Td Vaccines (1 - Tdap) [facility] Start: 03-07-2021 COVID-19 Vaccine (2 - Booster for Isaias series) COVID-19 Vaccine (2 - Booster for Isaias series) [facility] Start: 2018 Hepatitis C screening Hepatitis C Sc hunter [facility] Start: 2015 HPV Vaccines (1 - Ma le 3-dose series) HPV Vaccines (1 - Male 3-dose series) [facility] Start: 2011 HPV Vaccines (1 - Ma le 2-dose series) HPV Vaccines (1 - Male 2-dose series) [facility] Start: 11-28-2004 Varicella vaccination Varicell a Vaccines (2 of 2 - 2-dose childhood series) [facility] Start: 2001 MMR Vaccines (1 of 1 - Standard series) MMR Vaccines (1 of 1 - Standard series) [facility] Start: 2001 Varicella vaccination Varicell a Vaccines (1 of 2 - 2-dose childhood series) [facility] Start: 03-23-2001 COVID-19 Vaccine (#1) COVID-19 Vacci ne (#1) [facility] Start: 2000 Hepatitis B Vaccines (1 of 3 - 3-dose series) Hepatitis B Vaccines (1 of 3 - 3-dose series) [facility] Start: 2000 HIV screening HIV Screening [facility] Start: 2000 Lipid panel Lipid Panel [facility] Start: 2000 Yearly Adult Physical Yearly Adult P hysical [facility] Comprehensive metabo lic 2000 panel - Serum or Plasma [facility] Patient Education Low back pain in adults [facility] Work Phone: [facility] Immunizations Immunization Date Immunization Notes Care Provider Fa cility 09-23-2001 varicella virus vaccine Dominick Barbosa MD Work Phone: [facility] Work Phone: Payers Date Payer Category Payer [employer] Managed Care [facility] [id number] 2022 Unknown 2022 Unknown [id number] 2019 Unknown [id number] 2000 Unknown [id number] [id number]. 593 2000 Unknown [id number] 2.840.1.542195.3.579.2. 593 2000 Unknown [id number] 2.840.1.441377.3.579.2. 593 2000 Unknown [id number] 2.16840.1.224900.3.579.2. 593 2000 Unknown [id number] 2.16840.1.360743.3.579.2. 593 2000 Unknown [id number] 2.16840.1.874126.3.579.2. 356 2000 Unknown [id number] 2.16840.1.379079.3.579.2. 356 2000 Unknown [id number] 2.16.840.1.142476.3.579.2. 356 2000 Unknown [id number] 2.16.840.1.409880.3.579.2. 356 2000 Unknown [id number] 2.16.840.1.261525.3.579.2. 356 2000 Unknown [id number] 2.16.840.1.491060.3.579.2. 356 2000 Unknown [id number] 2.16.840.1.710222.3.579.2. 356 2000 Unknown [id number] 2.16.840.1.520968.3.579.2. 196 2000 Unknown [id number] 2.16.840.1.188020.3.579.2. 1244 2000 Unknown [id number] 2.16.840.1.060052.3.579.2. 1244 2000 Unknown [id number] 2.16.840.1.834811.3.579.2. 1244 Social History Date Type Detail Facility Start: 09-02-2023 End: 07-13-2024 Never a smoker Never a smoker HP-Fodrmzdvjzepsr-Vu stla ke Work Phone: Start: 09-02-2023 End: 07-13-2024 Sex Assigned At [facility] Other Tobacco smoking status MIIS Tobacco smoking consumption unknown [facility] Work Phone: Start: 2000 Sex Assigned At Not on file [facility] Work Phone: Start: 09-02-2023 Tobacco smoking status MIIS Never smoked tobacco [facility] Work Phone: Start: 09-02-2023 Tobacco use and exposure Smokeless tobacco non-user [facility] Work Phone: Start: 08-23-2023 End: 07-13-2024 Exposure to SARS-CoV-2 (event) Not sure [facility] Start: 2000 Sex Assigned At Male F [facility] Clinical Notes 09-04-2020 to 07-13-2024 Dominick Barbosa MD - 07/13/2024 1:15 PM EDTKencheryle Barbosa MD - 03/09/2024 2:45 PM EDT [...] allergy symptoms History Of Present Illness: Wale Grey presents since last being seen March 09, [...] procedure below.) SINONASAL ENDOSCOPY WITH BIOPSY (CPT 38483-Y): Due to the patient's nasal cavity / [...] sleep apnea on positive pressure Discussion: Wale Grey appeared well on examination today. Based on [...] Attestation By signing my name below, I, Margarito Allen, Tana, attest that this documentation has been prepared under the direction and in the presence of Dominick Barbosa MD. Signature: Dominick Barbosa MD documented in this encounter [facility] Work Phone: 03-09-2024 History of Present illness [...] (Please see procedure below.) SINONASAL ENDOSCOPY (CPT 34442): To better evaluate the patient's symptoms, sinonasal [...] Dominick Barbosa MD. documented in this encounter [facility] Work Phone: 10-06-2023 Evaluation note Encounter Date [...] index [BMI] 50.0-59.9, adult (ICD-10 - Z68.43) [employer] Other 11-29-2023 History of Present illness Narrative* [...] (Please see procedure below.) SINONASAL ENDOSCOPY (CPT 56991): To better evaluate the patient's symptoms, sinonasal [...] free to contact my office by calling [phone] with any questions. Signature: Scribe Attestation By signing my name below, I, Reina Irvin , Tana attest that this documentation has been prepared under the direction and in the presence of Agustina Barbosa MD. documented in this [facility] Work Phone: 1(507) 795-343308-11-2023 NotePost Operative Note: PreOp Diagnosis: Right sinonasal inverted papilloma, chronic sinusitis Post-Procedure Diagnosis: Same Procedure: 1. Right nasal endoscopy with total ethmoidectomy including sphenoidotomy with tissue removal CPT 33586-T-77 2. Right nasal endoscopy with frontal sinusotomy CPT 44087-S 3. Right maxillary endoscopy with tissue removal 98814-B 4. Extracranial CT image guidance CPT 75910 Surgeon: Familia Resident/Fellow/Other [employer] Supervisor: None Anesthesia: GET Estimated Blood Loss (mL): [...] resected (more content not included)...[facility] 05-15-2023 Miscellaneous Notes* Op Note - Dominick Barbosa MD - 05/15/2023 4:37 PM EDT Post Operative Note: PreOp Diagnosis: Right sinonasal inverted papilloma, chronic sinusitis Post-Procedure Diagnosis: Same Procedure: 1. Right nasal endoscopy with total ethmoidectomy including sphenoidotomy with tissue removal CPT 27897-W-70 2. Right nasal endoscopy with frontal sinusotomy CPT 79742-Q 3. Right maxillary endoscopy with tissue removal 70463-C 4. Extracranial CT image guidance CPT 23203 Surgeon: Familia Resident/Fellow/Other [employer] Eng[employer] Supervisor: None Anesthesia: GET Estimated Blood Loss (mL): [...] 17:00 by Dominick Barbosa) documented in this [facility] Work Phone: 1(962) 655-412108-11-2023 Note* Op Note - Dominick Barbosa MD - 05/15/2023 4:37 PM EDT Post Operative Note: PreOp Diagnosis: Right sinonasal inverted papilloma, chronic sinusitis Post-Procedure Diagnosis: Same Procedure: 1. Right nasal endoscopy with total ethmoidectomy including sphenoidotomy with tissue removal CPT 63474-G-56 2. Right nasal endoscopy with frontal sinusotomy CPT 34627-V 3. Right maxillary endoscopy with tissue removal 56234-P 4. Extracranial CT image guidance CPT 60782 Surgeon: Familia Resident/Fellow/Other [employer] Engra[employer] Supervisor: None Anesthesia: GET Estimated Blood Loss (mL): [...] Last Updated: 15-May-2023 17:00 by Dominick Barbosa) [facility] Work Phone: 1([phone]) 929-527008-11-2023 History of Present illness Narrative* Wale presents for his first postoperative visit following right-sided sinus surgery in 05/15/23. * Following his surgery he has done well. He has been having some headaches that are controlled with Tylenol. His breathing has been significantly improved. He is rinsing several times per day. He denies significant nasal drainage. [facility]xidefbq-[facility] Work Phone: [phone]) 998-321708-11-2023 NoteHistory of Present Illness: History Present Illness: [...] 15-May-2023 11:51 by Dominick Barbosa)[facility]08-11-2023 History and physical note* Dominick Barbosa MD [...] Last Updated: 15-May-2023 11:51 by Dominick Barbosa) [facility] Work Phone: 1(987) 977-242808-11-2023 History and physical note* Dominick Barbosa MD [...] 11:51 by Dominick Barbosa) documented in this [facility] Work Phone: 1([phone]) 216-379304-05-2023 Evaluation note* Encounter Date Diagnosis Assessment Notes Treatment Notes Treatment Clinical Notes Jan, Inverted papilloma of nasal cavity (ICD-10 - D14.0) [employer] Other 04-04-2023 Chief complaint Narrative - Reported* [...] 5. Obstructive sleep apnea on positive pressure DX[facility]qygnlvrhlwdv[facility] Work Phone: 1(384) 111-978104-04-2023 History of Present illness Narrative* Reason for visit: * WALE GREY patient presents since last being seen 01/06/23. * Wale presents for routine follow-up. He is interested in going forward with his inverted papillomaresection and would like to schedule it as soon as there is availability. VQ-Eyhfbbrowxcigd-Fimumfmv Work Phone: [phone] History of Present illness Narrative* Reason for visit: * WALE GREY patient presents since last being seen 01/06/23. * Wale presents for routine follow-up. 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 [facility]coxiliqr-[facility] Work Phone: 1([phone]) 704-696004-03-2023 Evaluation note* Encounter Date Diagnosis Assessment Notes [...] for congestion, Tylenol for pain and fever. [employer] Other 12-01-2020 History of Present illness Narrative* [...] and is using flonase only as needed. BL-Rvrxtviecjpnnw-Axqoyvwl Work Phone: [phone] History of Present illness Narrative* Reason for [...] well outside of some nasal breathing issues. [facility] Work Phone: Evaluation note* Diagnosis Chronic ethmoidal sinusitis Benign neoplasm of middle ear, nasal cavity and accessory sinuses Benign neoplasm of nasal cavities, middle ear, and accessory sinuses Chronic sinusitis, unspecified documented in this encounter [facility] Work Phone: Evaluation note* Diagnosis Chronic ethmoidal sinusitis- Primary Other chronic sinusitis Chronic sphenoidal sinusitis documented in this encounter [facility] Work Phone: Evaluation note* Diagnosis Chronic ethmoidal sinusitis- Primary Chronic maxillary sinusitis documented in this encounter [facility] Work Phone: Evaluation note* Diagnosis Onset Date Resolution Status Bulging lumbar disc acute Elevated BP without diagnosis of hypertension acute Low back pain acute Obesity acute Wellness examination acute [facility] Work Phone: Evaluation note* Diagnosis Post-nasal drainage- Primary Other diseases of nasal cavity and sinuses Chronic maxillary sinusitis Nasal congestion Other diseases of nasal cavity and sinuses documented in this encounter [facility] Work Phone: Evaluation note* Diagnosis Onset Date Resolution Status Bulging lumbar disc acute Elevated BP without diagnosis of hypertension acute Low back pain acute Obesity acute Wellness examination acute IFG (impaired fasting glucose) acute Acute sinusitis noneactive [facility] Work Phone: History general Narrative - Reported* [...] ethmoidectomy 08/25/2019 Hospitalization History see surgical history [employer] Other History of Present illness Narrative* Wale [...] 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 [facility] Work Phone: Summary Purpose Family History Unknown [...] Advance Directives No June 03, 2024 1:52pm Advance Directive Response Recorded Date/ Time Advance Directives No June 03, 2024 12:52pm Chief Complaint * 1. Inverted papilloma s/p [...] Complaint and Reason for Visit Chief Complaint [facility] Reason for Visit Bulging lumbar disc Elevated BP without diagnosis of hypertension Low back pain Obesity Wellness examination Chief Complaint [facility] [phone] sinus infection Reason for Visit Bulging lumbar disc Elevated BP without diagnosis of hypertension Low back pain Obesity Wellness examination IFG (impaired fasting glucose) Acute sinusitis Additional Source Comments (unrecognized sect ion and content) No Status Records FoundNo Status Records FoundNo Status Records FoundNo Status Records FoundNo Status Records FoundNo Status Records Found INFORMATION SOURCE (unrecogn ized section and content) DATE CREATED AUTHOR 03/06/2020 [facility] DATE CREATED AUTHOR AUTHOR'S ORGANIZ ATION 11/24/2022 [facility] DATE CREATED AUTHOR AUTHOR'S ORGANIZ ATION 05/28/2023 [employer] DATE CREATED AUTHOR AUTHOR'S ORGANIZ ATION 06/05/2023 [facility] DATE CREATED AUTHOR AUTHOR'S ORGANIZ ATION 07/08/2024 [facility] DATE CREATED AUTHOR AUTHOR'S ORGANIZ ATION 07/24/2024 [facility] REASON FOR VISIT (unrecogniz ed section and content) Reason Comments Other Right endoscopic sin us surgery with image guidance, right endoscopic medial maxillectomy, septoplasty Reason Comments Follow-up Care Teams (unrecognized sec tion and content) Vaccinator Relationship Specialty Start Date End Date Enzo Vasques DO PCP - General 09/21/19 Vaccinator Relationship Specialty Start Date End Date Enzo Vasques DO PCP - General 09/21/19 Vaccinator Relationship Specialty Start Date End Date Enzo Vasques DO PCP - General 09/21/19 UzielReinaldoCristianajose Garcia APRN-ASHLEY [id number] [place] [id number] PCP - Cyndie ENCISO PCP 09/04/23 Team Status: Active Member Role Status Dates Enzo Vasques DO Primary Care Provider Active Team Status: Inactive Member Role Status Dates Ezno Vasques DO Primary Care Provide r, Attending Provider Active Start: June 03, 2024 End: June 03, 2024 Vaccinator Relationship Specialty Start Date End Date Enzo Vasques DO PCP - General 09/21/19 Team Status: Active Member Role Status Dates Enzo Vasques DO Primary Care Provide r, Attending Provider Active Start: June 08, 2024 Team Status: Inactive Member Role Status Dates Enzo Vasques DO Primary Care Provide r, Attending Provider Active Start: August 08, 2024 End: August 08, 2024 Goals (unrecognized section and content) Goals [...] BE BASED ON THE PRIMARY CLINICAL RECORDS. [facility]. provides no warranty or guarantee of the accuracy or completeness of information in this document."
== END 2024-09-22 14:54 | disposition home or self-care (01) ==
LOC: PM 14:53
PROVIDERS: Family Provider Internal Medicine; PCP Internal Medicine; Visit Provider Nurse Practitioner
DX: M48.062 Spinal stenosis, lumbar region with neurogenic claudication (principal); M51.26 Other intervertebral disc displacement, lumbar region; M54.16 Radiculopathy, lumbar region; M79.18 Myalgia, other site
CPT/HCPCS: G0463

== ENCOUNTER 2024-12-22 15:01 | Outpatient (OUT) | payer BC, SELFPAY ==
--- NOTE | 2024-12-22 15:47 | PM.CN ---
Consult Note: HPI Data of Consult Patient: known to practice within the last 3 years Requesting Physician: Shaneka Pena NP Primary Care Provider: Enzo Vasques DO Family Provider: Enzo Vasques DO Consult Narrative Reason for consult: low back, left leg pain Narrative: 24yom who presents for evaluation. 2 year history of low back, left leg pain. previous mri shows multilevel disc herniation and ddd. pain today 5/10 increasing to 8/10 at the most. Pain increased with standing, walking, lifting, housework, bending, and activity. pain improved with sleep and sitting. pt has stopped meloxicam and baclofen due to ineffectiviness. 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 - Personal history of other benign neoplasm (ICD-10) Sleep apnea ?G47.30 - Sleep apnea, unspecified (ICD-10) Asthma ?J45.909 - Unspecified asthma, uncomplicated (ICD-10) Pre-diabetes ?R73.03 - Prediabetes (ICD-10) Surgical History (Updated 09/07/24 @ 08:22 by Holly Campbell, ARELIS) History of sinus surgery ?Z98.890 - Other specified postprocedural states (ICD-10) Meds Home Medications and Allergies Home Medications ?Medication ?Instructions ?Recorded ?Confirmed ?Type metformin 850 mg tablet 850 mg PO DAILY 07/04/24 09/12/24 History baclofen 10 mg tablet 10 mg PO BID 07/28/24 09/12/24 History meloxicam 7.5 mg tablet 7.5 mg PO BID 07/28/24 09/12/24 History Allergies Allergy/AdvReac Type Severity Reaction Status Date / Time No Known Drug Allergies Allergy Verified 09/12/24 06:58 Exam Constitutional Vital Signs, click to edit/add: BP elevated, denies chest pain headache and SOB Documenting provider has reviewed patient's vital signs: yes Common normals: no apparent distress, oriented x3, healthy appearing, alert and well nourished General appearance: cooperative HENMT Common normals: normocephalic, hearing grossly normal bilaterally and moist oral mucous membranes Head and scalp: normocephalic Eye Common normals: PERRL Pupil: PERRL Neck & C-Spine Common normals: full ROM General: normal visual inspection Chest Common normals: inspection of chest normal Respiratory Common normals: normal respiratory effort, no retractions and no use of accessory muscles Back & Pelvis Lumbar spine/lower back: ROM limited, pain with ROM and lumbar spinal tenderness Lumbar spinal tenderness location: L4 and L5 Sacroiliac joints: SI joints normal Other: positive facet loading Neuro Common normals: oriented x3, CN's II-XII intact bilaterally, moves all extremities, no focal motor deficits, no sensory deficits noted and deep tendon reflexes 2+ bilaterally Sensorium/orientation: alert Motor exam: strength 5/5 throughout and no movement abnormalities noted Psych Common normals: mental status grossly normal, thought process normal, cooperative, affect normal, speech normal and activity/motor behavior normal Speech: normal speech Thought process: normal thought process Results Additional Findings Additional findings: If on a controlled substance or opioids, I have checked an [place] report on this patient and there are no aberrancies noted in the prescribing history.??If on a controlled substance or opioid a drug screen was completed and reviewed within the last year, and if there has not been a drug screen completed we ordered one today to monitor higher risk, state monitored pain medication use. As part of providing excellent, safe, comprehensive care, the following was completed at our patient's visit: 1. A medication reconciliation and review to ensure accurate knowledge of current/active medications, including asking our patients to inform us about any [id number] medications or herbal remedies/nutritional supplements/alternative remedies. 2. A review to specifically ensure our patients have had annual screening for screening for depression, screening for tobacco use, and screening for unhealthy alcohol use. For concerning screenings had a discussion with the patient, provided patient education, and recommended follow-up with primary care provider when appropriate. If patient noted with a risk of falling, they received education on strength, gait, and balance training to prevent future risk of falling. Portions of this note may have been carried over from the previous visit and updated as appropriate. Please note this office utilizes paper charting in addition to the electronic medical record. A list of current medications, vitals, and PMH is available there as the clinical staff outside of myself do not have access to [employer] charting during the clinic day operations. As part of providing quality comprehensive care the current medications, vitals, and PMH were reviewed in the paper chart. Assessment and Plan Assessment and Plan (1) Lumbar stenosis with neurogenic claudication: (2) Lumbar disc displacement without myelopathy: (3) Lumbar radiculopathy: (4) Myalgia: (5) Lumbar spondylosis: Plan bilateral L4-5 L5-S1 facet medial branch block x2 working towards RFA for axial facet mediated low back pain start cyclobenzaprine 10mg TID PRN pain/spasms start gabapentin 300mg HS f/u after each injection
== END 2024-12-22 15:02 | disposition home or self-care (01) ==
LOC: PM 15:02
PROVIDERS: Family Provider Internal Medicine; PCP Internal Medicine; Visit Provider Nurse Practitioner
DX: M48.062 Spinal stenosis, lumbar region with neurogenic claudication (principal); M51.26 Other intervertebral disc displacement, lumbar region; M54.16 Radiculopathy, lumbar region; M79.18 Myalgia, other site; M47.816 Spondylosis without myelopathy or radiculopathy, lumbar region
CPT/HCPCS: G0463

== ENCOUNTER 2025-01-02 07:32 | Day surgery (SDC) | payer BC, SELFPAY ==
--- OUTSIDE RECORDS SUMMARY | 2025-01-02 07:46 | XMS_ITS | CCD ---
Author Organization [facility] Care Team Providers Care Chlorinator Operator Name Role Phone Enzo Vasques Unavailable Unavailable [...] christofer Barbosa, Dr. Dominick Talavera Attending Dolly vailadanuta Govea Jr, Dr. Yolette Nichols Referring U navailable [place], [...] Stephy Barbosa, Dr. Dominick Talavera Attending Dolly gutierrez Barbosa, Dr. Dominick Talavera Admitting Dolly gutierrez Barbosa, Dr. Dominick Talavera Referring Dolly Vasques, Dr. Enzo Diallo Primary Care Stephy beaulieu [place] DO, Enzo Diallo Primary Care Provider U oksanaaildinah Vasques DO, Enzo Diallo Primary Care Provider Enzo Vasques DO Primary Care Provider carmendavid PHARMACY STUDENT-CIGAR HEAD HOLER, Cristiana Jose Unavailable DOMINICK BARBOSA Attending Unavailable ENZO VASQUES Primary Care Unavailable DOMINICK BARBOSA Attending Unavailable ENZO VASQUES Primary Care Unavailable DOMINICK BARBOSA Attending Unavailable ENZO VASQUES Primary Care Unavailable Kentrell HUBBARD, Ruth Durán Attending Unavailable Kentrell HUBBARD, Ruth Durán Attending Unavailable Allergies Allergy Classification Reported Allergen(s) Allergy Type Date of Onset Reaction(s) Facility (8 sources) bee pollen Allergy to substance (finding) -[facility] Work Phone: (1 source) patient allergy list reviewed by nurse or physicia Propensity to adverse reactions 6 Comment:Done [employer] Other Medications Current Medications Medication Drug Class(es) [...] FINISHED. Quantity: 20 Refills: 0 Ordered: 12-Nov-2022 Dmoinick Barbosa MD Start : 12-Nov-2022 End : [...] source) Abnormal posture; Translations: [ABNORMAL POSTURE] Onset: 06-21-2022 Episodic Unclassified (3 sources) Onset: 09-02-2023 Resolved: 07-13-2024 09-02-2023 Viral infection (1 source) COVID-19 Results Test Name Value Interpretation Reference Range Facility Surgical pathology studyOrde red By: Shakir Ford on 07-19-2024 Laboratory comment Pasquale (Report) l2hzoMYcWVUpl0xgVOVvnENbJ zEwMzNcZnRuYmpcdWMxIHtccn OiQWlhw5TwP5HpTwHtOIbqvgI lIDTuLaswbdonQHJiGSC0vbQl WIBzOTlyILXxRJbkRo8gzQQvy JahGjRiLNLtk4gproFJAJnkAB CPXKk8p1khIMMxCkT3mYRjLQg zJ4eyfkNqyRBjN5Gnt0MzCXg3 hZ60WOQbvY6axPLhSTcxffIhS fV4MOjjGCGsMwR5XRFksNSyEI SqO9lvQFPfBNsfOFLgVVtotPZ iWPH4kIjhy8Z3tKPiiHPyrLso UyKdSkMlNmTVk2HeVDl2rFcbA 5QiFCOuCuH3tGJnRQPfLHwePL ApCATrvuU7nW95SSmtemZ0jBG tq5Phu33jo633wE6yzLVwLMO2 YBVyWYFaxLDtYNLbYLE8UTEgq EZsP3luTbXlaEBfH9LrKaCrbB VtR0OlLpKsnLTgL6SiYxFewQG lKPQzeWD6PXuif821AWF4XwIb MM0fS5Mxo0Q6hB2qnZUpKZPso BRyLtMwOLHhbl2npPUkZWpvv0 UpYMD0iwS6mUNrkPPxSPMlMK0 9Wekcx6RjUaaaBUU6BKZkrfBf z8Bzj9slVgNdlaNlM7nsS6NlY VYfCJQvQPZwSzZkbhDzx6Kew4 FztHHasYh4v8xgOBEcPOHipHp uu5kgRAC2UTUtB3J7aDJod9pp QNqkLIPpxNB1dkR1KFrbMYAui eI8jvD1ZGltAZTpxTV6xhR6JS hfEGFzHkW9ryN6MNzoBMNbPVW 1JyPwSTUfe3FfebabKdWmv1Tt gHOoEXilN08qq580GMAifrIsK 1xwbGFpblxwbGFpblxmMFxmcz F1HKMkOBSgSUzkNNQkSJYfDnK cbGFuZzEwMzNcaGljaFxmMVxk BgBvNVVvZXmgA5hxGgGiEbYfY DFDvHS0gFVht0olnkR0dLFoCI 0rSFRclORmzfSde4X5OGN1zLF faB7byNWlGMVhsOQolpRxpw76 kKLxnER3AXRzEGRizPBznF7dT RYbDBHToK6lsOROthLaqfHcYY WgbDanin9HcXZnnq2yxBIvV5R ydGlmaWVzIHRoYXQgdGhleSBo DDGhUZSakklbc1DpHWIqvCDwK 0IgFP3wBBPcya97 [facility] Work Phone: Pathology report Cancer Narrative Surgical Pathology Case: [id number] Authorizing Provider: Dominick Barbosa MD Collected: 07/13/20241404 Ordering Location: [facility] Received: 07/13/20241404 Pathologist: Shakir Ford DDS Specimen: NASAL MASS RIGHT BIOPSY [facility] Work Phone: Pathology report final diagnosis Narrative t0jexKHdTMWxtDNlHYcsRkumq wGpMAYchMWyM5LnfujbPQmpEM 4zLZ4erCferHZkzBTgAWBvPwR lo7kdu340fOQdw6tzPSQVcjpp jIp5gWqqB03kh6E4PhblY2fpR ZLeBKinUZBxDEtzsAZcEHl5ZU BhcGVydzEyMjQwXHBhcGVyaDE 4WXHsZP4syyfpVVwpEFnoVJNo zwK4BOJtuYIwI5UdKDOjUU9zk gqjNKX2TKacZHQaXBB0DtDcTS Pri2Kxahb7SrUgaWq5f3ixIEG kNAUqmQxgy2hoBEG2NJRlsGHm I8jnhW9xPHEdXW9lowkfy2zkX ApiEDqnNQVuqIY7ddZ0AYRzoY PoU7PtrG8pTVGcGPCgmdIbbOh xbD4zVqXvEjxlNmShPlHkQNfi W9B5bKN8BDWzhXsajHPfIELlI DMvoD1jf0c4ZFShxgbzfzYwl9 vnUYOjwn7dOHQyfICpuZCiw7B nCJ6kHNQlru7qkGCnoO0rgFWd uHY6nY3oDJlyfVdnZWVbbHT8e 4HwKIK5ug6bJIuvW25la1qyyK NyfZL4rMVzZHPvnk1hGOBeiCI jxwIwGO8vXLIkghkzbT3kjMWz XHBhcn0= [facility] Work Phone: Pathology report gross observation Narrative e9pamGDhKRTdeEYRHBU9MWFyY X9nbJmdtEr6mLjqPBHpntW4bT JnMEnvv9ncNJX3n4zipyUUIhq eNOSjNW0fQDehZVIeXE0yNkFu XGRlZmYxXHBhcGVydzEyMjQwX ZWizBFyzSA2VOLcFZ8gkrwnWV fkJFqqGUKajlF4VADxkYDfO9I pZAUhHI2yehvzRJZ1ZZMIErxp Dr9imJLveMYPWifkMeGxQrJpE VWcSPVrHAJcj5hozsIHXEtlSX ALHGm0WCf8HETyFXFncYTni9H 4WLbtj0dyi4MmXODfLUz1fU2E UtdfMPB0LOUEEvhjReybaKilx 2VjdCBcXHNnIFxcaWQgNTEwMD EtPAjhDxBVHgEyQiEaECQ3JVk 2EoVdUQm6GZtbOoKWWFK8TPc3 SodgLLq1TJqfXWrsiKTlTBKkT TIhJTMrHNjcquY3c4trXODloP NxTUC1PTpqd5gjPCfkPJK0AND iJbOdABNqLU5NKrXcCSQ4FyJ7 VmsoEsC4JTb0XVTNIsWyAqPhB HMsCwu0LNiaGKs1AIm1HUnMAu CyXYO8ZcFtRQVvWMY7KDM8ZHl hjqnrXXu6DVAxHUjhulCxJYii QtuzDFrmS00teHNhXKIXSmcag GFpblxlcGljTmVzdERvYzEgDQ jndPWroPIqEQ7DTRm2ghGfWVW wBXFhVtNrLTvnLnHhEVb5QYWg cT0uDu7fmZFazZ5fQHfyMmMoT MUmg8q0uBM9qILtpVW1tEPvmA ixJE9crFTxJS3xYHvci8AajQQ wDB49cEHbtrGeisRsWj6hd6Mk CB8ai1SpWsyqlHQ8RPPkJ2a9J yvqNJUuAM72zWKyaTvoXOVhkp RsT2JyREVhw4FxoTQqwSZjn2Q gdGFuLXdoaXRlIHNvZnQgdGlz e5UuXNNqD7ToL5K7qB4xFFJnV HSuTMR9HJFtHrD5WKDoNGIjxH 7hADGjJXEpmKKajF8qciAyxcA evPLuyTA9JWKkkM4tjP61hcFk cpCzbaLkH6Rdk6K5wHVwDUKir hDHRckaIGHrVHFtmNNTf4WsPR UFVcKRGa2AUJCflJHMQGB4GZ2 rIFlgEMSjG4TvW6BoodQ2d0rg fLghv3PajNGxME9tsZFdNU6ME QDhjfUaADaibCprhQ5rFKp3 [facility] Work Phone: Pathology report relevant history Narrative c9txaNEoZPXmi0hwAXXrbZMpN kCjGoDlWxUtPtb5XGZtxqD6Gt d7ITKfVCotcK6lNOJdUQmdO8o bknQiaTYzNLMjCTe2wD9qzOxv lD2yBsUdUlJoFXZsfPLsguetK G6wsDkioQXzbNQclZ10z1d9uA NccGFyIH0= [facility] Work Phone: Resident Review g5gjeAYiSUKwcKZtWNrn Mlxhb tGnSCItaTZqC2EovytiLXbnEL 9zWO0fjPcekRQfbDCkOHZsYhF kw9ssz893uGEye3nxBDKRftmu tDs0fAvaU81rp7G6PxoyY87iv MTeMJZ6WRYuZQQngJKhYDAkPX K6AWOluIVjH7oyWVZmYH9lebo hGIjyLUgeWZPjuWN0OBNtaWMb O3ZkELEwFWrvXLUumxl5LtEeM m4kqXKffRfpEIxzAHBsANIpBX cwOBXoKjUdJEouQGerg5SiGFY eJX0xejZtmVByr0Iid9BzGgXj jY9cvP7novR2NTSuOMZbhbwhh 4GiAGtqUMJhbdk5nzD6uD2rHV stlUdrkQF1hX9fb6d9KLZga1d eOJ27YPTQBD2pzRBlC8YspX8c SSCGDS7ngLDyHNXsllXthZExw Q== [facility] Work Phone: [facility] Work Phone: Surgical pathology studyon 1 Surgical pathology study Pathology report.total SEE COMMENT Surgical Pathology Case: [id number] Authorizing Provider: Dominick Barbosa MD Collected: 07/13/2024 1403 Ordering Location: [facility] Received: 07/13/2024 140 Pathologist: Shakir Ford DDS Specimen: NASAL MASS [...] is submitted in toto in one cassette. [facility] Basophils Auto (Bld) [#/Vol] on 06-08-2024 Basophils (Bld) [#/Vol] 0.1 10 3/uL 0.0-0.1 [facility] Basophils/100 WBC Auto (Bld) on 06-08-2024 Basophils/100 WBC (Bld) 1.2 % 0.2-2.0 [facility] Cholesterol in LDL Calc [Mas s/Vol]on 06-08-2024 Cholesterol in LDL [Mass/Vol] 66.0 mg/dL [facility] Comment on above: <100 mg/dl INCWEYL88 0-129 mg/dl NEAR OR ABOVE GXPRJOJ469-144 mg/dl BORDERLINE JUUM934-646 mg/dl HIGH>190 mg/dl VERY HIGH Cholesterol in VLDL Calc [Ma ss/Vol]on 06-08-2024 Cholesterol in VLDL [Mass/Vol] 43.0 mg/dL [facility] Eosinophils/100 WBC Auto (Bl d)on 06-08-2024 Eosinophils/100 WBC (Bld) 3.1 % 0.9-7.0 [facility] Erythrocyte distribution wid th Auto (RBC) [Ratio]on 06-08-2024 Erythrocyte distribution width (RBC) [Ratio] 13.0 % 11.0-15.0 [facility] Estimated glomerular filtrat ion rate (GFR) non- Americanon 06-08-2024 GFR/1.73 sq M.predicted among non-blacks MDRD (S/P/Bld) [Vol rate/Area] mL/min/{1.73_m2} >=60 [facility] Globulin Calc (S) [Mass/Vol] on 06-08-2024 Globulin (S) [Mass/Vol] 4.1 g/dL [facility] Glucose mean value [Mass/vol ume] in Blood Estimated from glycated hemoglobinon 06-08-2024 Average glucose Estimated from glycated hemoglobin (Bld) [Mass/Vol] 128 mg/dL [facility] Hematocrit Auto (Bld) [Volum e fraction]on 06-08-2024 Hematocrit (Bld) [Volume fraction] 45.3 % 42.0-54.0 [facility] Hemoglobin [Mass/volume] in Bloodon 06-08-2024 Hemoglobin (Bld) [Mass/Vol] 14.6 g/dL 14.0-18.0 [facility] Laboratory - Chemistry and C hemistry - challengeon 06-08-2024 Albumin [Mass/Vol] 3.6 g/dL 3.4-5.0 [facility] ALP [Catalytic activity/Vol] 86 U/L 46-116 [facility] ALT [Catalytic activity/Vol] 46 U/L 16-63 [facility] AST [Catalytic activity/Vol] 27 U/L 15-37 [facility] Bilirubin [Mass/Vol] 0.5 mg/dL 0.2-1.0 [facility] Calcium [Mass/Vol] 9.3 mg/dL 8.5-10.1 [facility] Chloride [Moles/Vol] 100 mmol/L 98-107 [facility] Cholesterol [Mass/Vol] 147 mg/dL <=200 [facility] Cholesterol in HDL [Mass/Vol] 38 mg/dL Low 40-60 [facility] Comment on above: > or =60 mg/dl - LOW CARDIOVASCULAR RISK<40 mg/dl - HIGH CARDIOVASCULAR RISK CO2 [Moles/Vol] 28.7 mmol/L 21.0-32.0 [facility] Creatinine [Mass/Vol] 0.93 mg/dL 0.70-1.30 [facility] GFR/1.73 sq M.predicted MDRD (S/P/Bld) [Vol rate/Area] mL/min/{1.73_m2} >=60 [facility] Glucose [Mass/Vol] 121 mg/dL High 74-106 [facility] Potassium [Moles/Vol] 4.2 mmol/L 3.5-5.1 [facility] Protein [Mass/Vol] 7.7 g/dL 6.4-8.2 [facility] Sodium [Moles/Vol] 138 mmol/L 136-145 [facility] Triglyceride [Mass/Vol] 215 mg/dL High <=150 [facility] TSH Qn 3.486 m[IU]/L 0.358-3.740 [facility] Urea nitrogen [Mass/Vol] 16.0 mg/dL 7.0-18.0 [facility] Urea nitrogen/Creatinine [Mass ratio] 17.2 mg/mg [facility] Laboratory - Hematology and Cell countson 06-08-2024 HbA1c (Bld) [Mass fraction] 6.1 % 4.5-6.2 [facility] Comment on above: ADA RECOMMENDED LIMI T 4.0 - 6.0ADA THERAPEUTIC TARGET < 7.0ACTION SUGGESTED> 7.0 Immature granulocytes/100 WBC (Bld) 0.3 % 0.0-0.5 [facility] Leukocytes [#/volume] correc giselle for nucleated erythrocytes in Blood by Automated counon 06-08-2024 WBC corrected for nucl RBC Auto (Bld) [#/Vol] 7.2 10 3/uL 4.0-11.0 [facility] Lymphocytes Auto (Bld) [#/Vo l]on 06-08-2024 Lymphocytes (Bld) [#/Vol] 2.3 10 3/uL 1.2-3.8 [facility] Lymphocytes/100 WBC Auto (Bl d)on 06-08-2024 Lymphocytes/100 WBC (Bld) 32.3 % 20.5-60.0 [facility] MCH Auto (RBC) [Entitic mass ]on 06-08-2024 MCH (RBC) [Entitic mass] 29.0 pg 25.9-34.0 [facility] MCHC Auto (RBC) [Mass/Vol]on 06-08-2024 MCHC (RBC) [Mass/Vol] 32.2 g/dL 29.9-35.2 [facility] MCV Auto (RBC) [Entitic vol] on 06-08-2024 MCV (RBC) [Entitic vol] 89.9 fL 80.0-94.0 [facility] Monocytes Auto (Bld) [#/Vol] on 06-08-2024 Monocytes (Bld) [#/Vol] 0.4 10 3/uL 0.3-0.8 [facility] Monocytes/100 WBC Auto (Bld) on 06-08-2024 Monocytes/100 WBC (Bld) 6.1 % 1.7-12.0 [facility] Neutrophils Auto (Bld) [#/Vo l]on 06-08-2024 Neutrophils (Bld) [#/Vol] 4.1 10 3/uL 1.4-6.5 [facility] Neutrophils/100 WBC Auto (Bl d)on 06-08-2024 Neutrophils/100 WBC (Bld) 57.0 % 43.0-75.0 [facility] No Panel Informationon 06-08 Eosinophils # (Auto) 0.2 10 3/uL 0.0-0.7 [facility] Immature Granulocyte # (Auto) 0.02 10 3/uL 0.00-0.03 [facility] Platelet mean volume Auto (B ld) [Entitic vol]on 06-08-2024 Platelet mean volume (Bld) [Entitic vol] 10.0 fL 9.5-13.5 [facility] Platelets Auto (Bld) [#/Vol] on 06-08-2024 Platelets (Bld) [#/Vol] 355 10 3/uL 150-450 [facility] RBC Auto (Bld) [#/Vol]on RBC (Bld) [#/Vol] 5.04 10 6/uL 4.70-6.10 [facility] Serum or plasma albumin/glob ulin mass ratioon 06-08-2024 Albumin/Globulin [Mass ratio] 0.9 {ratio} [facility] Serum or plasma anion gap de terminationon 06-08-2024 Anion gap [Moles/Vol] 13.5 mmol/L [facility] Serum or plasma total choles terol/high density lipoprotein (HDL) cholesterol mass maria luz 06-08-2024 Cholesterol.total/C holesterol in HDL [Mass ratio] 3.9 {ratio} [facility] Comment on above: 3.3 - 4.4 LOW [...] reviewed this case. Diagnostic interpretation performed at [facility] [address] [facility] [address] Clinical History: Physician Contact Number: [phone] Fixative (A): Saline Fixative (B): Saline Clinical [...] specimen is entirely submitted in [address] [facility] B: Received in formalin, labeled with the patient's name and hospital number and B, microdebrider contents , are multiple, irregular segments of blood and soft tissue aggregating to 5.4 x 3.7 x 1.5 cm. Electrical Integrator sections are submitted in [address] [facility] Note: Per the pathologist, the rest of specimen B is submitted in toto in [address] 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 Please feel free to contact my office by calling [phone] with any questions. Provider Impressions 1. Inverted [...] (Please see procedure below.) SINONASAL ENDOSCOPY (CPT 86561): To better evaluate the patient's symptoms, sinonasal [...] free to contact my office by calling [phone] with any questions. Provider Impressions 1. Inverted [...] day Tylenol TABS Vitals Vital Signs Recorded: [id number] 07:57AM Height6 ft Grtlcj434 lb 8 oz BMI Xhidbakfid79.81 kg/m2 BSA Calculated2.89 Tobacco Useb) No Falls [...] (Please see procedure below.) SINONASAL ENDOSCOPY (CPT 73258): To better evaluate the patient's symptoms, sinonasal [...] May 27 2023 8:22AM EST (Author) Normal [employer] Tobacco Screening.on 023 Fall risk assessment a) No falls within the last year [facility] Work Phone: Tobacco use status [facility] b) No -[facility] 4[facility] Work Phone: Established Visit (Otolaryng ology)on 05-20-2023 Established Visit (Otolaryngology) Diagnoses/Problems Chronic ethmoidal sinusitis (473.2) (J32.2) Chronic maxillary sinusitis (473.0) (J32.0) 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 Please feel free to contact my office by calling [phone] with any questions. Provider Impressions 1. Inverted [...] asked him to reach out to my departmental secretary and we discussed some time parameters [...] TIMES DAILY NEEDED. Vitals Vital Signs Recorded: [id number] 12:20PM Height6 ft Xlofxz602 lb 3.2 oz BMI Vtyhiillws77.31 kg/m2 BSA Calculated2.91 Tobacco Useb) No PHQ-2 [...] (Please see procedure below.) SINONASAL ENDOSCOPY (CPT 53617): To better evaluate the patient's symptoms, sinonasal [...] May 20 2023 1:59PM EST (Author) Normal [employer] Tobacco Screening.on 023 Adult depression screening assessment No -[facility] 4[facility] Work Phone: Fall risk assessment a) No falls within the last year [facility] 4100 Work Phone: Tobacco use status [facility] b) No -[facility] 4[facility] Work Phone: No Panel Informationon 05-15 [facility] 4[facility] Work Phone: Order Reconciliationon 05-15 Order [...] Assistance Level: (more content not included)... Normal [facility] Patient Profile - Preop v3on 05-15-2023 Patient Profile - Preop v3 Patient Profile - Preop: Initial Info: Patient DemographicsName: WALE GREY Date: 2000 Address: [address] [place] [address] [place] [address] Primary Phone [phone] How to be AddressedDylan Spoken Language PreferredEnglish Stated Reason for Admissioninverted papilloma Primary Contact Name and Numbereve Stern [phone] Limitations on Visitors/Phone Callsnone Medications Brought to Hospitalno General Health: Weight in kg185.1 kilogram(s) Weight in fcj629 pound(s) Height in feet5 feet Height in .97 inch(es) Height in cm182.8 centimeter(s) BMI (kg/m2)55.392 square meter Patient or Family Member Reaction to Anesthesiano previous reaction Blood Avoidance/Restrictionsnon e Previous Transfusion Reactionno Health Mgmt: Symptoms/Conditions Managed at Homerespiratory Respiratory Symptoms/Conditionssleep disordered breathing Barriers to Managing Healthnone Relationship/Environ: Lives Withparent(s) Living Arrangementshouse Living Environment Commentsmom Resource/Environmental Concernsnone Anticipated Transition [place] [facility] Anticipated at Transitionnone Tobacco Use: Tobacco [...] [facility] Surgical Pathology Depar tmenton 05-15-2023 [facility] Surgical Pathology Department Name WALE GREY Pathologist: [...] reviewed this case. Diagnostic interpretation performed at [place] [address] Clinical History: Physician Contact Number: [phone] Fixative (A): Saline Fixative (B): Saline Clinical [...] specimen is entirely submitted in [address] [facility] B: Received in formalin, labeled with the patient's name and hospital number and B, microdebrider contents , are multiple, irregular segments of blood and soft tissue aggregating to 5.4 x 3.7 x 1.5 cm. Electrical Integrator sections are submitted in [address] [facility] Note: Per the pathologist, the rest of specimen B is submitted in toto in [address] [facility]/05/19/2023 [facility] Department of Pathology [address] [place] [address] Normal [facility] Comment on above: Performed By: #### U HCS #### [facility] Surgical Pathology Department [address] [place], [place] [id number] BASIC METABOLIC PANELon 08-0 Anion gap [Moles/Vol] 16 mmol/L Normal 10 - 20 [facility] Comment on above: Performed By: #### B MP #### [place] [id number] Calcium [Mass/Vol] 9.8 mg/dL Normal 8.6 - 10.6 [facility] Comment on above: Performed By: #### B MP #### [facility] [address] [place] [address] Chloride [Moles/Vol] 101 mmol/L Normal 98 - 107 [facility] Comment on above: Performed By: #### B MP #### [facility] [address] [place] [address] Creatinine [Mass/Vol] 0.81 mg/dL Normal 0.50 - 1.30 [facility] Comment on above: Performed By: #### B MP #### [facility] [address] [place] [address] eGFR MALE >90 Normal >90 [facility] Comment on above: Result Comment: CALC ULATIONS OF ESTIMATED GFR ARE PERFORMED USING THE 2020 CKD-EPI STUDY REFIT EQUATION WITHOUT THE RACE VARIABLE FOR THE IDMS-TRACEABLE CREATININE METHODS. https://jasn.asnjournals.org/content/early//ASN.28764354 88 Performed By: #### B MP #### [facility] [address] [place] [address] Glucose [Mass/Vol] 81 mg/dL Normal 74 - 99 [facility] Comment on above: Performed By: #### B MP #### [facility] [address] [place] [address] HCO3 (Bld) [Moles/Vol] 27 mmol/L Normal 21 - 32 [facility] Comment on above: Performed By: #### B MP #### [facility] [address] [place] [address] Potassium [Moles/Vol] 4.5 mmol/L Normal 3.5 - 5.3 [facility] Comment on above: Performed By: #### B MP #### [facility] [address] [place] [address] Sodium [Moles/Vol] 139 mmol/L Normal 136 - 145 [facility] Comment on above: Performed By: #### B MP #### [facility] [address] [place] [address] Urea nitrogen [Mass/Vol] 13 mg/dL Normal 6 - 23 [facility] Comment on above: Performed By: #### B MP #### [facility] [address] [place] [address] CBCon 05-12-2023 Erythrocyte distribution width (RBC) [Ratio] 13.0 % Normal 11.5 - 14.5 [facility] Comment on above: Performed By: #### C BC #### [facility] [address] [place] [address] Hematocrit (Bld) [Volume fraction] 47.2 % Normal 41.0 - 52.0 [facility] Comment on above: Performed By: #### C BC #### [facility] [address] [place] [address] Hemoglobin (Bld) [Mass/Vol] 14.4 g/dL Normal 13.5 - 17.5 [facility] Comment on above: Performed By: #### C BC #### [facility] [address] [place] [address] MCHC (RBC) [Mass/Vol] 30.5 g/dL Low 32.0 - 36.0 [facility] Comment on above: Performed By: #### C BC #### [facility] [address] [place] [address] MCV (RBC) [Entitic vol] 94 fL Normal 80 - 100 [facility] Comment on above: Performed By: #### C BC #### [facility] [address] [place] [address] NUCLEATED RBC 0.0 /100 WBC Normal 0.0-0.0 [facility] Comment on above: Performed By: #### C BC #### [facility] [address] [place] [address] Platelets (Bld) [#/Vol] 400 10*3/uL Normal 150 - 450 [facility] Comment on above: Performed By: #### C BC #### [facility] [address] [place] [address] RBC 5.03 x10E12/L Normal 4.50 - 5.90 [facility] Comment on above: Performed By: #### C BC #### [facility] [address] [place] [address] WBC (Bld) [#/Vol] 9.2 10*3/uL Normal 4.4 - 11.3 [facility] Comment on above: Performed By: #### C BC #### [facility] [address] [place] [address] Laboratory - Chemistry and C hemistry - challengeon 05-12-2023 Anion gap [Moles/Vol] 16 mmol/L 10 - 20 [facility]-Otolaryng ology-[facility]ag[facility] 410 Work Phone: [phone] Calcium [Mass/Vol] 9.8 mg/dL 8.6 - 10.6 [facility]vell laryng ology-Chagri [facility] 4100 Work Phone: [phone] Chloride [Moles/Vol] 101 mmol/L 98 - 107 [facility]-Otolaryng ology-Chagri [facility] 4100 Work Phone: [phone] CO2 [Moles/Vol] 27 mmol/L 21 - 32 [facility] 4100 Work Phone: [phone] Creatinine [Mass/Vol] 0.81 mg/dL See Below [facility]-Otolaryng ology-Chagri [facility] 4100 Work Phone: [phone] Comment on above: Reference Range: 0.5 0 - 1.30 Glucose [Mass/Vol] 81 mg/dL 74 - 99 [facility]vell laryng ology-Chagri [facility] 4100 Work Phone: [phone] Potassium [Moles/Vol] 4.5 mmol/L 3.5 - 5.3 [facility]-Otolaryng ology-Chagri [facility] 4100 Work Phone: [phone] Sodium [Moles/Vol] 139 mmol/L 136 - 145 MG-Geovanni laryng ology-Chagri [facility] 4100 Work Phone: [phone] Urea nitrogen [Mass/Vol] 13 mg/dL 6 - 23 [place] [id number] Work Phone: Laboratory - Hematology and Cell countson 05-12-2023 Erythrocyte distribution width (RBC) [Ratio] 13.0 % See Below [facility] 410 Work Phone: Comment on above: Reference Range: 11. 5 - 14.5 Hematocrit (Bld) [Volume fraction] 47.2 % See Below [facility] 410 Work Phone: Comment on above: Reference Range: 41. 0 - 52.0 Hemoglobin (Bld) [Mass/Vol] 14.4 g/dL See Below [facility] 410 Work Phone: Comment on above: Reference Range: 13. 5 - 17.5 MCHC (RBC) [Mass/Vol] 30.5 g/dL below low threshold See Below [facility] 4100 Work Phone: Comment on above: Reference Range: 32. 0 - 36.0 MCV (RBC) [Entitic vol] 94 fL 80 - 100 [place] [address] Work Phone: Platelets (Bld) [#/Vol] 400 10*3/uL 150 - 450 [facility] 4100 Work Phone: [phone] RBC (Bld) [#/Vol] 5.03 {x10E12/L} See Below [facility] 4100 Work Phone: Comment on above: Reference Range: 4.5 0 - 5.90 WBC (Bld) [#/Vol] 9.2 10*3/uL 4.4 - 11.3 [facility] 4[facility] Work Phone: No Panel Informationon 05-12 >90 >90 MG-Otolaryng ology-[facility] 4104 Work Phone: Comment on above: CALCULATIONS OF AMANDA MATED GFR ARE PERFORMED USING THE 2020 CKD-EPI STUDY REFIT EQUATION WITHOUT THE RACE VARIABLE FOR THE IDMS-TRACEABLE CREATININE METHODS.https://jasn.asnjournals.org/content/early//ASN. 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 Provider Impressions 1. Inverted [...] DAILY UNTIL FINISHED. Vitals Vital Signs Recorded: [id number] 01:56PM Height6 ft Mdvcsf516 lb 9 oz BMI Zlwzziuyva96.63 kg/m2 BSA Calculated2.91 Tobacco Useb) No PHQ-2 [...] Screening.on 023 Adult depression screening assessment No [employer] Work Phone: Fall risk assessment a) No falls within the last year [employer] Phone: Tobacco use status CPHS b) No [employer] Work Phone: Established Visit (Otolaryng ology)on 01-06-2023 Established Visit (Otolaryngology) Diagnoses/Problems Chronic ethmoidal sinusitis (473.2) (J32.2) Chronic maxillary sinusitis (473.0) (J32.0) Nasal congestion (478.19) (R09.81) 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 Provider Impressions 1. 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 Please feel free to contact my office by calling [phone] with any questions. Provider Impressions 1. Inverted [...] No Reported Medications Vitals Vital Signs Recorded: 22Ioe4173 04:13PM Height6 ft Vwmbwa550 lb 8 oz BMI Lptctllilz56.89 kg/m2 BSA Calculated2.92 Tobacco Useb) No PHQ-2 [...] (Please see procedure below.) SINONASAL ENDOSCOPY (CPT 68598): To better evaluate the patient's symptoms, sinonasal endoscopy is indicated. After discussion of risks and benefits, and topical decongestion and anesthesia,an endoscope was used to perform (more content not included)... Normal [employer] Tobacco Screening.on 023 Adult depression screening assessment No [employer] Work Phone: Fall risk assessment a) No falls within the last year [employer] Work Phone: Tobacco use status CP b) No [employer] Work Phone: MRI LSPINE WO CONon 07-23-20 [...] by: ANTONIO WEINSTEIN Date: 2022-07-23 12:04 Normal [facility] XR LSPINE 2_3 VIEWSon 2021 XR [...] by: ANTONIO WEINSTEIN Date: 2022-02-18 15:30 Normal [facility] Pathology Reporton 0 Pathology Report [id number]:12 7 Normal [facility] Coding Summary.on 08-31-2019 Coding Summary. CODING DATE: 019 FINAL [facility] STATUS: Home (Routine DC) PAYOR: [facility] [place] APC DESCRIPTION 5155 Level 5 Airway Endoscopy ADMIT DX: REASON FOR VISIT DX: J32.4 Chronic pansinusitis FINAL DX: PRINCIPAL: J32.4 Chronic pansinusitis SECONDARY: J34.89 Other specified disorders of nose and nasal sinuses J45.909 Unspecified asthma, uncomplicated G47.30 Sleep apnea, unspecified Z99.89 Dependence on other enabling machines and devices PYMT PROC APC STAT DESCRIPTION DOCTOR NAME DATE 14168 5155 J1 Nasal/sinus endoscopyJeferson MD, Hilary H 08/25/2019 surgical with ethmoidectomy; total (anterior and posterior), including sphenoidotomy, with removal of tissue from the sphenoid sinus RT Right side (used to identify procedures performed on the right side of the body) 39789 5155 J1 Nasal/sinus endoscopyJeferson MD, Hilary H 08/25/2019 surgical, with maxillary antrostomy; with removal of tissue from maxillary sinus RT Right side (used to identify procedures performed on the right side of the body) 01629 5155 J1 Nasal/sinus endoscopyJeferson MD, Hilary H 08/25/2019 surgical, with frontal sinus exploration, including removal of tissue from frontal sinus, when performed RT Right side (used to identify procedures performed on the right side of the body) 70089 Anesthesia for RashaunLoyd arrington Jr., DO 08/25/2019 procedures on nose and accessory sinuses; not otherwise specified NOTE: The code number assigned matches the documented diagnosis and / or procedure in the patient's chart. However, the narrative phrase printed from the coding software may appear abbreviated, or result in slightly different terminology. Revised Coded By: Ngoc Campo Revised Date Saved: 08/31/2019 10:48 am Normal [facility] Main OR Intraoperative Recor don 08-29-2019 Main OR Intraoperative Record IntraOp Document Type FT Summary Primary Physician: Yolette Govea MD Finalized Date/Time: 08/29/19 09:29:47 Pt. Name: WALE GREY/Sex: 2000 Male Med Rec #: [id number] Physician: Yolette Govea MD Financial #: [id number] Pt. Type: A Room/Bed: Admit/Disch: 08/25/19 09:16:00 [...] Role Performed Anesthesiologist of Surgeon - Primary Senior Chemist - Primary Record Time In 08/25/19 10:37:00 08/25/19 10:37:00 08/25/19 10:37:00 Time Out 08/25/19 13:03:00 08/25/19 13:03:00 08/25/19 13:03:00 Procedure ANTROSTOMY TURBINECTOMY ANTROSTOMY TURBINECTOMY ANTROSTOMY TURBINECTOMY ETHMOIDECTOMY IM(Right) ETHMOIDECTOMY IM(Right) ETHMOIDECTOMY IM(Right) Comments out of room from [id number]. Last Modified By: Patrick RN, Nelly Nguyen RN, Nelly Robison RN 08/25/19 13:05:43 08/25/19 13:05:43 08/25/19 13:05:43 Entry 4 Entry 5 Entry 6 Case Attendee Patrick INFANTE, Nelly Aguilar CST, Enzo Tijerina CST, Sheba Segovia Role Performed Senior Chemist - Primary Scrub - Primary Scrub - Relief Time In 08/25/19 10:37:00 08/25/19 10:37:00 08/25/19 11:40:00 Time Out 08/25/19 13:03:00 08/25/19 13:03:00 08/25/19 12:14:00 Procedure ANTROSTOMY TURBINECTOMY ANTROSTOMY TURBINECTOMY ANTROSTOMY TURBINECTOMY ETHMOIDECTOMY IM(Right) ETHMOIDECTOMY IM(Right) ETHMOIDECTOMY IM(Right) Comments out for lunch at out for lunch at [phone] Last Modified By: Nelly Nguyen RN, RN, [...] Out Rene Nava DO, Loyd, Given Participants Jeferson HUBBARD, Rehana Rodriguez RN, Patrick Staton RN, Jeff Strauss CST, [...] and tissue Entry 1 Skin Integrity Intact, Spearman, Warm, and Skin Abnormality No Dry Outcomes [...] Met? Yes Yes Yes Last Modified By: Nguyen RN, Nelly M Nguyen Nelly INFANTE RN, Karen M 08/25/19 11:36:50 08/25/19 11:36:50 [...] 11:42:00 By Rehana INFANTE, Jomar Morales, Breezy YARDING AND FOLDING MACHINE OPERATOR, Jeff Marcano CST, Jeff Giraldo CST, [...] Morales Patient Status Stable Skin. Condition Intact, Spearman, Warm, and Dry Airway Maintenance Oxygen in Use? Yes Airway Device Simple Mask Flow Rate 10 L/min Outcomes Met? Yes Last Modified By: Jomar Kimball RN 08/25/19 11:48:09 Post-Care Text: The patient is free from signs and symptoms of injury related to transfer/transport General Comments: handoff report given to pacu nurse. 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 Yes Verified Last Modified By: Nelly Nguyen RN 08/25/19 10:03:51 Post-Care Text: The patient received appropriate medication(s) safely administered during the perioperative period For [place] please see scanned medication reconcilliation form for [...] AIR Quantity 1 Aid PLUS LOWER BODY [[id number]][F] Fluid/Grundy Unit Mistral warming system Setting high/43 degrees Body Site Lower anterior torso Last Modified By: Nelly Nguyen RN 08/25/19 10:05:52 Case Comments Finalized By: Melisa Rg CST Document Signatures Signed By: Nelly Nguyen RN 08/25/19 13:06 ALEXIS Hines RN, Andrea 08/26/19 11:19 Melisa Rg CST 08/29/19 09:29 Normal [facility] Operative Reporton 11-22-201 9 Operative Report [...] Yolette Govea Jr., M.D. aek Dictated: 08/25/2019 #[id number] Typed: 08/26/2019 #[id number] cc: Wiliam Carrillo Jr., M.D. [facility] Comment on above: Result Comment: Elec tronically Signed By: Jeferson HUBBARD, Yolette Justin.br\Date and Time Signed: 08/26/19 09:56 EST Inpatient Patient Summaryon 08-25-2019 Inpatient Patient Summary [facility] Clinical Discharge Instructions PERSON INFORMATION Name: WALE GREY PHYSICIANS Admitting Physician: Yolette Govea MD Attending Physician: Yolette Govea MD PCP: ENZO VASQUES DO Discharge Diagnosis: Chronic pansinusitis Comment: PATIENT EDUCATION INFORMATION Instructions: Post Op Patient Instructions - FT (CUSTOM) Medication Leaflets: Follow up: With: Address: When: Yolette Govea [address] [place] [address] Business (1) In 6 days 08/31/2019 Comments: Call for followup appointment MEDICATION LIST Comment: Normal [facility] Main OR PACU I Recordon 08-06 Main OR PACU I Record PACU Phase I Document Type FT Summary Primary Physician: Yolette Govea MD Finalized Date/Time: 08/25/19 13:39:03 Pt. Name: WALE GREY /Sex: 2000 Male Med Rec #: [id number] Physician: Yolette Govea MD Financial #: [id number] Pt. Type: A Room/Bed: [place] [address] Admit/Disch: 08/25/19 09:16:27 - Institution: Case Times [...] By: Jesenia Phan RN 08/25/19 13:39 Normal [facility] Main OR PACU II Recordon Main OR PACU II Record PACU Phase II Document Type FT Summary Primary Physician: Yolette Govea MD Finalized Date/Time: 08/25/19 15:29:24 Pt. Name: WALE GREY D.O.B./Sex: 2000 Male Med Rec #: [id number] Physician: Yolette Govea MD Financial #: [id number] Pt. Type: A Room/Bed: Admit/Disch: 08/25/19 09:16:27 [...] By: Heavenly Hager RN 08/25/19 15:29 Normal [facility] Main OR Preoperative Recordo n 08-25-2019 Main OR Preoperative Record PreOp Document Type FT Summary Primary Physician: Yolette Govea MD Finalized Date/Time: 08/25/19 11:07:39 Pt. Name: WALE GREY/Sex: 2000 Male Med Rec #: [id number] Physician: Yolette Govea MD Financial #: [id number] Pt. Type: A Room/Bed: [place] [address] Admit/Disch: 08/25/19 09:16:27 - Institution: Case Times [...] Signed By: Nelly Nguyen RN 08/25/19 11:07 [facility] Operative Reporton Operative Report Patient: Ministerio GREY Age: 18 years Sex: Male : 2000 Associated Diagnoses: None Author: Yolette Govea MD Postoperative Information Procedure: RT IG microdebrider assisted MMA with r/o tissue, total ethmoidectomy, frontal sinusotomy, sphenoidotomy with r/o tissue Preoperative Diagnosis: Chronic pansinusitis (PHP62-LW J32.4, Working, Medical). Postoperative Diagnosis: Chronic pansinusitis (ZJG54-CI J32.4, Discharge, Medical). Performed by: Yolette Govea MD. 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 Specimens Removed: nasal polyp, RT sinus contents, RT sinus sock, RT max sinus tissue, RT sphenoid tissue. Estimated Blood Loss: 100 ml. Medications Complications: None. Normal [facility] Comment on above: Result Comment: Elec tronically Signed By: Yolette Govea MD\.br\Date and Time Signed: 08/25/19 13:21 EST Patient Education - Texton 1 10-25-2018 Patient Education - Text Normal [facility] Coding Summary.on 08-22-2019 Coding Summary. CODING DATE: 019 FINAL [facility] STATUS: Home (Routine DC) PAYOR: Medical [place] APC DESCRIPTION 5521 Level 1 Imaging without [...] CphT Date Saved: 08/22/2019 11:03 am Normal [facility] Auto Diffon 08-19-2019 Basophils/100 WBC (Bld) 1.4 % Normal 0.0-2.0 [facility] Comment on above: Order Comment: Order Added by Discern Expert. Performed By: #### 2 [id number], [id number], [id number] #### [facility] [address] [place] [address] Basophils/Leukocyte s Auto (Bld) [Pure # fraction] 0.2 E9/L Normal 0.0-0.2 [facility] Comment on above: Order Comment: Order Added by Discern Expert. Performed By: #### 2 174103, 0554800, [id number] #### [facility] [address] [place] [address] Eosinophils/100 WBC (Bld) 1.1 % Normal 0.0-8.0 [facility] Comment on above: Order Comment: Order Added by Discern Expert. Performed By: #### 2 017094, 7346295, [id number] #### [facility] [address] [place] [address] Eosinophils/Leukocy carlos Auto (Bld) [Pure # fraction] 0.1 E9/L Normal 0.0-0.5 [facility] Comment on above: Order Comment: Order Added by Discern Expert. Performed By: #### 2 261312, 8649737, [id number] #### [facility] [address] [place] [address] Lymphocytes/100 WBC (Bld) 21.2 % Normal 14.0-50.0 [facility] Comment on above: Order Comment: Order Added by Discern Expert. Performed By: #### 2 660081, 8838075, [id number] #### [facility] [address] [place] [address] Lymphocytes/Leukocy carlos Auto (Bld) [Pure # fraction] 2.3 E9/L Normal 1.0-4.0 [facility] Comment on above: Order Comment: Order Added by Discern Expert. Performed By: #### 2 122931, 0793550, [id number] #### [facility] [address] [place] [address] Monocytes/100 WBC (Bld) 5.4 % Normal 4.0-14.0 [facility] Comment on above: Order Comment: Order Added by Discern Expert. Performed By: #### 2 730672, 0091756, [id number] #### [facility] [address] [place] [address] Monocytes/Leukocyte s Auto (Bld) [Pure # fraction] 0.6 E9/L Normal 0.2-1.0 [facility] Comment on above: Order Comment: Order Added by Discern Expert. Performed By: #### 2 874728, 7757151, [id number] #### [facility] [address] [place] [address] Neutrophils/100 WBC (Bld) 70.9 % Normal 36.0-75.0 [facility] Comment on above: Order Comment: Order Added by Discern Expert. Performed By: #### 2 521278, 7979532, [id number] #### [facility] [address] [place] [address] Neutrophils/Leukocy carlos Auto (Bld) [Pure # fraction] 7.6 E9/L High 2.0-7.5 [facility] Comment on above: Order Comment: Order Added by Discern Expert. Performed By: #### 2 265341, 0175448, [id number] #### [facility] [address] [place] [address] BUNon 08-19-2019 Urea nitrogen [Mass/Vol] 12 mg/dL Normal 5-21 [facility] Comment on above: Performed By: #### 2 403827, 7847407, 50268165, 8127218, 1211737 #### [facility] [address] [place] [address] CBC w/ Auto Diffon 9 Erythrocyte distribution width (RBC) [Ratio] 14.1 % Normal 10.9-14.2 [facility] Comment on above: Performed By: #### 2 228695, 8316753, 87592951 #### [facility] [address] [place] [address] Hematocrit (Bld) [Volume fraction] 48.4 % Normal 37.7-49.0 [facility] Comment on above: Performed By: #### 2 355593, 4861369, 10282765 #### [facility] [address] [place] [address] Hemoglobin (Bld) [Mass/Vol] 16.2 g/dL Normal 13.5-17.5 [facility] Comment on above: Performed By: #### 2 802915, 1147142, 72906744 #### [facility] [address] [place] [address] MCH (RBC) [Entitic mass] 29.0 pg Normal 27.0-34.0 [facility] Comment on above: Performed By: #### 2 827227, 8354222, 36658239 #### [facility] [address] [place] [address] MCHC (RBC) [Mass/Vol] 33.6 g/dL Normal 31.4-36.0 [facility] Comment on above: Performed By: #### 2 304282, 3042793, 45986297 #### [facility] [address] [place] [address] MCV (RBC) [Entitic vol] 86.5 fL Normal 80.0-100.0 [facility] Comment on above: Performed By: #### 2 760607, 2189597, 42386345 #### [facility] [address] [place] [address] Platelet mean volume (Bld) [Entitic vol] 8.7 fL Normal 6.4-10.8 [facility] Comment on above: Performed By: #### 2 916147, 1482500, 85830034 #### [facility] [address] [place] [address] Platelets (Bld) [#/Vol] 351.0 E9/L Normal 150.0-500.0 [facility] Comment on above: Performed By: #### 2 272791, 7786572, 27151614 #### [facility] [address] [place] [address] RBC (Bld) [#/Vol] 5.6 E12/L Normal 4.3-5.9 [facility] Comment on above: Performed By: #### 2 544488, 1041828, 64479659 #### [facility] [address] [place] [address] WBC corrected for nucl RBC Auto (Bld) [#/Vol] 10.7 E9/L Normal 4.0-11.0 [facility] Comment on above: Performed By: #### 2 176777, 3936982, 65193760 #### [facility] [address] [place] [address] Creatinineon 08-19-2019 Creatinine [Mass/Vol] 0.8 mg/dL Normal 0.5-1.3 [facility] Comment on above: Performed By: #### 2 234448, 8619930, 72316288, 5287876, 8753964 #### [facility] [address] [place] [address] Glucoseon 08-19-2019 Glucose [Mass/Vol] 97 mg/dL Normal 55-199 [facility] Comment on above: Performed By: #### 2 513234, 1391260, 66836150, 4741873, 0982603 #### [facility] [address] [place] [address] Lyteson 08-19-2019 Anion gap [Moles/Vol] 14 mmol/L Normal 6-16 [facility] Comment on above: Performed By: #### 2 255165, 9660598, 28843765, 0651506, 6465843 ####[facility] [address] [place] [address] Chloride [Moles/Vol] 104 mmol/L Normal 101-111 [facility] Comment on above: Performed By: #### 2 856059, 5700495, 53267134, 6931644, 3877959 ####[facility] [address] [place] [address] CO2 [Moles/Vol] 25 mmol/L Normal 21-31 [facility] Comment on above: Performed By: #### 2 236031, 5605491, 44778386, 5329259, 9081333 ####[facility] [address] [place] [address] Potassium [Moles/Vol] 3.5 mmol/L Normal 3.5-5.3 [facility] Comment on above: Performed By: #### 2 246094, 3854482, 15882305, 7452484, 9481722 ####[facility] [address] [place] [address] Sodium [Moles/Vol] 139 mmol/L Normal 135-145 [facility] Comment on above: Performed By: #### 2 971652, 6123558, 18348683, 8148065, 9438398 ####[facility] [address] [place] [address] PT & PTTon 08-19-2019 aPTT Coag (PPP) [Time] 35.7 second(s) Normal 25.1-36.5 [facility] Comment on above: Result Comment: Hepa rin therapeutic range (represented by Anti-Factor Xa activity of 0.2 - 0.4 U/mL) corresponds to PTT of 56.6 - 109.0 sec. Performed By: #### 2 346047, 8873404, 95916161 #### [facility] [address] [place] [address] INR Coag (PPP) [Relative time] 1.0 {INR} [facility] Comment on above: Result Comment: INR results are specifically intended to assess patients stabilized on long-term Anticoagulation therapy suggested INR?s ?Less Intensive Anticoagulation? 2.0 ? 3.0 Conventional Range 3.0 ? 4.5 Performed By: #### 2 711197, 4622929, 87905388 #### [facility] [address] [place] [address] PT Coag (PPP) [Time] 11.6 second(s) Normal 10.2-12.9 [facility] Comment on above: Performed By: #### 2 988537, 9050734, 40187625 #### [facility] [address] [place] [address] XR Chest 2 Viewson 9 XR Chest [...] M.D. Transcribed by: JAZMYNE Technologist: ZHANNA Normal [facility] eGFRon 08-19-2019 GFR/1.73 sq M predicted among blacks MDRD (S/P/Bld) [Vol rate/Area] mL/min/{1.73_m2} Normal >=59 [facility] Comment on above: Order Comment: Order added by Discern Expert. Result Comment: eGFR is race adjusted. AA=. Performed By: #### 2 266339, 7812390, 92738394, 3403917, 3081485 #### [facility] [address] [place] [address] GFR/1.73 sq M predicted among non-blacks MDRD (S/P/Bld) [Vol rate/Area] mL/min/{1.73_m2} Normal >=59 [facility] Comment on above: Order Comment: Order added by Discern Expert. Result Comment: Bag Bundler nilal kidney disease could be indicated at eGFR's of less than 60 mL/min/1.73m2. Kidney failure is indicated at less than 15 mL/min/1.73m2. Performed By: #### 2 076094, 3149991, 10878617, 5343934, 2497082 #### [facility] [address] [place] [address] Coding Summary.on 08-08-2019 Coding Summary. CODING DATE: 019 FINAL [facility] STATUS: Home (Routine DC) PAYOR: Medical [place] APC DESCRIPTION 5522 Level 2 Imaging without [...] CphT Date Saved: 08/08/2019 12:24 pm Normal [facility] CT Maxillofacial w/o Contras ton 08-07-2019 [...] M.D. Transcribed by: JAZMYNE Technologist: YOSEPH Parr [facility] Vital Signs Date Time Vital Sign Value Performing Clinician Facility 07-13-2024 13:18040 Body height 182.9 cm Dominick Barbosa MD Work Phone: [facility] 07-13-2024 13:18-0400 Body mass index (BMI) [Ratio] 56.42 kg/m2 Dominick Barbosa MD Work Phone: [facility] 07-13-2024 13:180400 Body weight 188.7 kg Dominick Barbosa MD Work Phone: [facility] 06-03-2024 14:040 Body height 182.25 cm [facility] 06-03-2024 14:05-0400 Body mass index (BMI) [Ratio] 57.3 kg/m2 [facility] 06-03-2024 14:050400 Body weight 190.5 kg [facility] 06-03-2024 14:05-0400 Diastolic blood pressure 91 mm[Hg] [facility] 06-03-2024 14:05-0400 Heart rate 83 /min [facility] 06-03-2024 14:05-0400 Respiratory rate 12 /min [facility] 06-03-2024 14:05-0400 Systolic blood pressure 146 mm[Hg] [facility] 03-09-2024 15:02-0400 Body height 182.9 cm Dominick Barbosa MD Work Phone: [facility] 03-09-2024 15:02-0400 Body mass index (BMI) [Ratio] 56.32 kg/m2 Dominick Barbosa MD Work Phone: [facility] 03-09-2024 15:02-0400 Body weight 188.38 kg Dominick Barbosa MD Work Phone: [facility] 10-06-2023 12:15-0500 Body height 182.25 cm Enzo Ball [employer] [facility] [employer] Other 10-06-2023 12:15-0500 Body mass index (BMI) [Ratio] 54.62 kg/m2 Enzo Ball Other [employer] [facility] [employer] Other 10-06-2023 12:15-0500 Body weight 181.44 kg Enzo Ball Other Located Within [facility] [employer] Other 09-02-2023 15:29-0500 Body height 182.9 cm Dominick Barbosa MD Work Phone: [facility] 09-02-2023 15:29-0500 Body mass index (BMI) [Ratio] 54.37 kg/m2 Dominick Barbosa MD Work Phone: [facility] 09-02-2023 15:29-0500 Body weight 181.85 kg Dominick Barbosa MD Work Phone: [facility] 05-27-2023 07:57-0400 Body height 182.88 cm Enzo Luca Ball Work Phone: [facility] Work Phone: 05-27-2023 07:57-0400 Body mass index (BMI) [Ratio] 55.81 kg/m2 Enzo Vasques Work Phone: [facility] 4100 Work Phone: 05-27-2023 07:57-0400 Body surface area Derived from formula 2.89 m2 Enzo Vasques Work Phone: [facility] 4100 Work Phone: 05-27-2023 07:57-0400 Body weight 186.66 kg Enzo Vasques Work Phone: [facility] 4100 Work Phone: 05-27-2023 07:57-0400 0 1 Enzo Vasques Work Phone: [facility] 4100 Work Phone: Comment on above: [employer] 05-20-2023 12:20-0400 Body height 182.88 cm Enzo Vasques Work Phone: [facility] 4100 Work Phone: 05-20-2023 12:20-0400 Body mass index (BMI) [Ratio] 56.31 kg/m2 Enzo Vasques Work Phone: [facility] 4100 Work Phone: 05-20-2023 12:20-0400 Body surface area Derived from formula 2.91 m2 Enzo Vasques Work Phone: [facility] 4100 Work Phone: 05-20-2023 12:20-0400 Body weight 188.33 kg Enzo E Ball Work Phone: [facility] Work Phone: 05-15-2023 11:49-0400 Body temperature 96.8 [degF] Dominick Barbosa MD Work Phone: [facility] 05-15-2023 11:49-0400 Diastolic blood pressure 91 mm[Hg] Dominick Barbosa MD Work Phone: [facility] 05-15-2023 11:49-0400 Heart rate 82 /min Dominick Barbosa MD Work Phone: [facility] 05-15-2023 11:49-0400 Respiratory rate 16 /min Dominick Barbosa MD Work Phone: [facility] 05-15-2023 11:49-0400 Systolic blood pressure 139 mm[Hg] Dominick Barbosa MD Work Phone: [facility] 05-15-2023 11:18-0400 Body height 182.8 cm Dominick Barbosa MD Work Phone: [facility] 05-15-2023 11:18-0400 Body mass index (BMI) [Ratio] 55.39 kg/m2 Dominick Barbosa MD Work Phone: [facility] 05-15-2023 11:18-0400 Body weight 185.1 kg Dominick Barbosa MD Work Phone: [facility] 03-18-2023 13:56-0400 Body height 182.88 cm Enzo Vasques Work Phone: ZI-Hvwdcxqxkwnoct-Yp [place] Work Phone: 03-18-2023 13:56-0400 Body mass index (BMI) [Ratio] 56.63 kg/m2 Enzo Vasques Work Phone: XK-Ofjasxdyxjgkuj-On [place] Work Phone: 03-18-2023 13:56-0400 Body surface area Derived from formula 2.91 m2 Enzo Segovia [facility] Work Phone: BU-Vtbbtgufpmkzcz-Fk [place] Work Phone: 03-18-2023 13:56-0400 Body weight 189.41 kg Enzo Segovia [facility] Work Phone: CY-Upgkcirgnrnlig-Av [place] Work Phone: 03-18-2023 13:56-0400 0 1 Enzo Segovia [facility] Work Phone: NK-Iyexepgocrduvn-Ql [place] Work Phone: Comment on above: [employer] 11-12-2022 16:13-0500 Body height 182.88 cm Enzo Segovia [facility] Work Phone: BT-Jxqbrodullnqtz-Cy [place] Work Phone: 11-12-2022 16:13-0500 Body mass index (BMI) [Ratio] 56.89 kg/m2 Enzo Segovia [facility] Work Phone: DD-Gvgovhiqxjicrs-Eh [place] Work Phone: 11-12-2022 16:13-0500 Body surface area Derived from formula 2.92 m2 Enzo Segovia [facility] Work Phone: EF-Kmcqsjdkfowhgc-Th [place] Work Phone: 11-12-2022 16:13-0500 Body weight 190.29 kg Enzo Segovia [facility] Work Phone: UU-Wwmfsgnwpdybdx-Wn [place] Work Phone: 11-12-2022 16:13-0500 0 1 Enzo Segovia [facility] Work Phone: NH-Neqbivxqztfuzq-Cu [place] Work Phone: Comment on above: [employer] Encounters Encounter Date Encounter Type Care Provider Facility Start: 09-12-2024 End: 09-12-2024 ambulatory Ruth Pfeiffer MD Facility: [facility] Start: 08-08-2024 End: 08-08-2024 ambulatory [facility] Work Phone: Start: 08-08-2024 End: 08-08-2024 Patient encounter procedure [facility] Work Phone: Start: 07-13-2024 End: 07-13-2024 Office outpatient visit 15 minutes Dominick Barbosa MD Work Phone: [facility] Comment on above: Post-nasal drainage (Primary Dx); Chronic maxillary sinusitis; Nasal congestion Start: 07-13-2024 End: 07-13-2024 ambulatory [facility] Start: 07-04-2024 End: 07-04-2024 ambulatory Ruth Pfeiffer MD Facility:[facility] Start: 06-08-2024 Non-patient / Non-visit [facility] [employer] Work Phone: Start: 06-03-2024 Patient encounter status [facility] Start: 06-03-2024 End: 06-03-2024 ambulatory [facility] Work Phone: Start: 06-03-2024 End: 06-03-2024 Encounter for general adult medical examination without abnormal findings [facility] Start: 06-03-2024 End: 06-03-2024 Patient encounter procedure [facility] Work Phone: Start: 03-09-2024 End: 03-09-2024 ambulatory [facility] Start: 03-09-2024 End: 03-09-2024 Office outpatient visit 15 minutes Dominick Barbosa MD Work Phone: [facility] Comment on above: Chronic ethmoidal si nusitis (Primary Dx); Chronic maxillary sinusitis Start: 10-06-2023 End: 10-06-2023 ambulatory Enzo [facility] Other [employer] Other Start: 10-06-2023 Office outpatient vi sit 15 minutes Enzo Vasques [facility] Start: 09-02-2023 End: 09-02-2023 Office outpatient visit 15 minutes Dominick Barbosa MD Work Phone: [facility] Comment on above: Chronic ethmoidal si nusitis (Primary Dx); Other chronic sinusitis; Chronic sphenoidal sinusitis Start: 09-02-2023 End: 09-02-2023 ambulatory DOMINICK BARBOSA [facility] Ambulatory Start: 06-07-2023 Chart Update Enzo morales Work Phone: [facility]elb[facility]amck[facility] 25[facility] Work Phone: Start: 05-27-[address] Dominick Cerda Facility:[id number] Start: 05-20-2023 Postop follow up vis it related to original px Enzo Vasques Work Phone: GP-Gvbjwnuuazmqcx[facility] 4409 Work Phone: Start: 05-20-[address] Enzo Vasques Facility:[id number] Start: 05-15-2023 End: 05-15-[address] Dominick Barbosa Facility:[facility] Start: 05-15-2023 AUDIT Enzo morales Work Phone: MH-Qlrmyaapecwqll-[facility] 2521 Work Phone: Start: 05-15-2023 End: 05-15-2023 Subsequent hospital visit by physician Dominick Barbosa MD Work Phone: [facility] Comment on above: Chronic ethmoidal si nusitis; Benign neoplasm of middle ear, nasal cavity and accessory sinuses; Chronic sinusitis, unspecified Start: 05-12-[address] Dominick Cerda Facility:[facility] Start: 05-12-2023 Encounter for preprocedural laboratory examination Dr. Dominick Barbosa [facility] Start: 03-18-2023 Office outpatient vi sit 15 minutes Enzo Vasques Work Phone: KN-Jpgpnetttyapvm-[facility]xf[facility] 4100 Work Phone: Start: 03-18-2023 Patient encounter procedure Enzo Segovia [place] Work Phone: MZ-Isgfzuxhyhqfxu-Dsit [place] Work Phone: Start: 03-18-[address] Dominick Cerda Facility:[id number] Start: 01-07-2023 End: 01-07-2023 ambulatory Enzo Vasques Other [employer] Other Start: 01-07-2023 Telephone encounter Enzo Vasques [facility] Start: 01-06-2023 Office outpatient vi sit 25 minutes Enzo Vasques Work Phone: [facility] 4100 Work Phone: Start: 01-06-[address] Dominick Cerda Facility:[id number] Start: 01-05-2023 End: 01-05-2023 ambulatory Enzo Vasques Other [employer] Other Start: 01-05-2023 Office outpatient vi sit 15 minutes Enzo Vasques [facility] Start: 11-19-2022 End: 11-20-[address] DOCTOR PARISI Facility:[facility]1 Start: 11-12-2022 Office outpatient vi sit 25 minutes Enzo Vasques Work Phone: [facility] 4100 Work Phone: Start: 11-12-2022 Patient encounter procedure Enzo Vasques Work Phone: LA-Umslnwugnqvwgt-Dcii [place] Work Phone: Start: 11-12-[address] Dominick Cerda Facility:[id number] Start: 07-29-2022 End: 08-23-[address] ENZO VASQUES Facility:[facility]1 Start: 07-22-2022 End: 07-23-[address] ENZO VASQUES Facility:[facility]1 Start: 06-24-2022 Well child visit Enzo Vasques Other Located Within [facility] [employer] Other Start: 03-20-2022 End: 04-25-[address] [...] Enzo Vasques Other Nasal sinus procedure Sumeet berto Luca Vasques Work Phone: Plan of Treatment Date Care Activity Detail Author Start: 2050 Zoster Vaccines (1 of 2) Zoste r Vaccines (1 of 2) [facility] Start: 01-11-2025 End: 01-11-2025 Patient encounter procedure 01/11/2025 3:00 PM EDT Office Visit [facility] [address] [place] [address] Dominick Barbsoa MD [address] [place] [address] [facility] Start: 07-13-2024 End: 07-13-2024 Patient encounter procedure 07/13/2024 1:15 PM EDT Office Visit [facility] [address] [place] [address] Dominick Barbosa MD [address] [place] [address] [facility] Start: 06-05-2024 COVID-19 Vaccine ( season) COVID-19 Vaccine ( season) [facility] Start: 06-05-2024 Influenza vaccination [facility] Start: 03-09-2024 End: 03-09-2024 Patient encounter procedure 03/09/2024 2:45 PM EDT Office Visit [facility] [address] [place] [id number] Dominick Barbosa MD [address] [place] [address] [facility] Start: 09-02-2023 FUV, Provider: Dominick Barbosa, Status: Pen, Time: 2:45 PM FUV, Provider: Dominick Barbosa, Status: Pen, Time: 2:45 PM [facility] 4100 Work Phone: Start: 09-02-2023 End: 09-02-2023 Patient encounter procedure 09/02/2023 2:45 PM EST Office Visit [facility] [address] [place], [id number] Dominick Barbosa MD [address] [place] [address] [facility] Start: 06-05-2023 COVID-19 Vaccine ( season) COVID-19 Vaccine ( season) [facility] Start: 06-05-2023 Influenza vaccination Influenz a Vaccine (#1) [facility] Start: 05-27-2023 POV, Provider: Dominick Barbosa, Status: Pen, Time: 10:30 AM POV, Provider: Dominick Barbosa, Status: Pen, Time: 10:30 AM YG-Grjqlrjspkgqoj-Zjem [place] Work Phone: Start: 05-20-2023 POV, Provider: Dominick Barbosa, Status: Pen, Time: 12:30 PM POV, Provider: Dominick Barbosa, Status: Pen, Time: 12:30 PM ER-Bwkbxgxnhhaxrp-Dbwk [place] Work Phone: Start: 12-22-2022 DTaP/Tdap/Td Vaccine s (7 - Td or Tdap) DTaP/Tdap/Td Vaccines (7 - Td or Tdap) [facility] Start: 2022 DTaP/Tdap/Td Vaccine s (1 - Tdap) DTaP/Tdap/Td Vaccines (1 - Tdap) [facility] Start: 03-07-2021 COVID-19 Vaccine (2 - Booster for Isaias series) COVID-19 Vaccine (2 - Booster for Isaias series) [facility] Start: 2018 Hepatitis C screening Hepatitis C [facility] Start: 2015 HPV Vaccines (1 - Ma le 3-dose series) HPV Vaccines (1 - Male 3-dose series) [facility] Start: 2011 HPV Vaccines (1 - Ma le 2-dose series) HPV Vaccines (1 - Male 2-dose series) [facility] Start: 11-28-2004 Varicella vaccination Varicell a Vaccines (2 of 2 - 2-dose childhood series) [facility] Start: 2001 MMR Vaccines (1 of 1 - Standard series) MMR Vaccines (1 of 1 - Standard series) [facility] Start: 2001 Varicella vaccination Varicell a Vaccines (1 of 2 - 2-dose childhood series) [facility] Start: 03-23-2001 COVID-19 Vaccine (#1) COVID-19 Vacci ne (#1) [facility] Start: 2000 Hepatitis B Vaccines (1 of 3 - 3-dose series) Hepatitis B Vaccines (1 of 3 - 3-dose series) [facility] Start: 2000 HIV screening HIV Screening [facility] Start: 2000 Lipid panel Lipid Panel [facility] Start: 2000 Yearly Adult Physical Yearly Adult P hysical [facility] Comprehensive metabo lic 2000 panel - Serum or Plasma [facility] Patient Education Low back pain in adults [facility] Work Phone: [facility] Immunizations Immunization Date Immunization Notes Care Provider Leland sharp 09-23-2001 varicella virus vaccine Dominick Barbosa MD Work Phone: [facility] Work Phone: Payers Date Payer Category Payer [employer] [facility] [id number] 2022 Unknown 2022 Unknown [id number] 2019 Unknown [id number] 2000 Unknown [id number] 2.16.840.1.809160.3.579.2. 593 2000 Unknown [id number] 2.16.840.1.236583.3.579.2. 593 2000 Unknown [id number] 2.16.840.1.431823.3.579.2. 593 2000 Unknown [id number] 2.16.840.1.788982.3.579.2. 593 2000 Unknown [id number] 2.16.840.1.404603.3.579.2. 593 2000 Unknown [id number] 2.16.840.1.196355.3.579.2. 356 2000 Unknown [id number] 2.16.840.1.264403.3.579.2. 356 2000 Unknown [id number] 2.16.840.1.982016.3.579.2. 356 2000 Unknown [id number] 2.16.840.1.438224.3.579.2. 356 2000 Unknown [id number] 2.16.840.1.482723.3.579.2. 356 2000 Unknown [id number] 2.16.840.1.575217.3.579.2. 356 2000 Unknown [id number] 2.16.840.1.630221.3.579.2. 356 2000 Unknown [id number] 2.16.840.1.521771.3.579.2. 1244 2000 Unknown [id number] 2.16.840.1.391068.3.579.2. 1244 2000 Unknown [id number] 2.16.840.1.522175.3.579.2. 1244 2000 Unknown [id number] 2.16.840.1.309422.3.579.2. 196 2000 Unknown [id number] 2.16.840.1.330833.3.579.2. 196 Social History Date Type Detail Facility Start: 09-02-2023 End: 07-13-2024 Never a smoker Never a smoker WR-Ojlgwylkqzirls-Ak st[place] Work Phone: Start: 09-02-2023 End: 07-13-2024 Sex Assigned At Located Within [facility] [employer] Other Tobacco smoking status TNIS Tobacco smoking consumption unknown [facility] Work Phone: Start: 2000 Sex Assigned At Not on file [facility] Work Phone: Start: 09-02-2023 Tobacco smoking status NHIS Never smoked tobacco [facility] Work Phone: Start: 09-02-2023 Tobacco use and exposure Smokeless tobacco non-user [facility] Work Phone: Start: 08-23-2023 End: 07-13-2024 Exposure to SARS-CoV-2 (event) Not sure [facility] Start: 2000 Sex Assigned At Male F [facility] Clinical Notes 09-04-2020 to 07-13-2024 Dominick [...] procedure below.) SINONASAL ENDOSCOPY WITH BIOPSY (CPT 17681-K): Due to the patient's nasal cavity / [...] Dominick Barbosa MD documented in this encounter [facility] Work Phone: 03-09-2024 History of Present illness [...] (Please see procedure below.) SINONASAL ENDOSCOPY (CPT 44030): To better evaluate the patient's symptoms, sinonasal [...] Dominick Barbosa MD. documented in this encounter [facility] Work Phone: 10-06-2023 Evaluation note Encounter Date [...] index [BMI] 50.0-59.9, adult (ICD-10 - Z68.43) [employer] Other 11-29-2023 History of Present illness Narrative* [...] (Please see procedure below.) SINONASAL ENDOSCOPY (CPT 18312): To better evaluate the patient's symptoms, sinonasal [...] free to contact my office by calling [phone] with any questions. Signature: Scribe Attestation By signing my name below, I, Reina Irvin , Scribluca attest that this documentation has been prepared under the direction and in the presence of Agustina Barbosa MD. documented in this [facility] Work Phone: 1(906) 575-843208-11-2023 NotePost Operative Note: PreOp Diagnosis: Right sinonasal inverted papilloma, chronic sinusitis Post-Procedure Diagnosis: Same Procedure: 1. Right nasal endoscopy with total ethmoidectomy including sphenoidotomy with tissue removal CPT 23685-F-01 2. Right nasal endoscopy with frontal sinusotomy CPT 11850-E 3. Right maxillary endoscopy with tissue removal 35636-B 4. Extracranial CT image guidance CPT 73696 Surgeon: Familia Resident/Fellow/Other Monorail Charger Operator: None Anesthesia: GET Estimated Blood Loss (mL): [...] middle turbinate was resected (more content not included)...[facility] 05-15-2023 Miscellaneous Notes* Op Note - Dominick Barbosa MD - 05/15/2023 4:37 PM EDT Post Operative Note: PreOp Diagnosis: Right sinonasal inverted papilloma, chronic sinusitis Post-Procedure Diagnosis: Same Procedure: 1. Right nasal endoscopy with total ethmoidectomy including sphenoidotomy with tissue removal CPT 15814-X-95 2. Right nasal endoscopy with frontal sinusotomy CPT 58356-S 3. Right maxillary endoscopy with tissue removal 25818-G 4. Extracranial CT image guidance CPT 03167 Surgeon: Familia Resident/Fellow/Other Monorail Charger Operator: None Anesthesia: GET Estimated Blood Loss (mL): [...] 17:00 by Dominick Barbosa) documented in this [facility] Work Phone: 1([phone]) 268-995208-11-2023 Note* Op Note - Dominick Barbosa MD - 05/15/2023 4:37 PM EDT Post Operative Note: PreOp Diagnosis: Right sinonasal inverted papilloma, chronic sinusitis Post-Procedure Diagnosis: Same Procedure: 1. Right nasal endoscopy with total ethmoidectomy including sphenoidotomy with tissue removal CPT 82767-W-12 2. Right nasal endoscopy with frontal sinusotomy CPT 69329-P 3. Right maxillary endoscopy with tissue removal 12660-N 4. Extracranial CT image guidance CPT 05517 Surgeon: Familia Resident/Fellow/Other Monorail Charger Operator: None Anesthesia: GET Estimated Blood Loss (mL): [...] Last Updated: 15-May-2023 17:00 by Dominick Barbosa) [facility] Work Phone: 1([phone]) 317-319208-11-2023 History of Present illness Narrative* Wale presents for his first postoperative visit following right-sided sinus surgery in 05/15/23. * Following his surgery he has done well. He has been having some headaches that are controlled with Tylenol. His breathing has been significantly improved. He is rinsing several times per day. He denies significant nasal drainage. IC-Ycpqzzwlgxfcbe-[facility]wxSan[facility] Work Phone: [phone] 283-754808-11-2023 NoteHistory of Present Illness: History Present Illness: [...] Completion Last Updated: 15-May-2023 11:51 by Dominick Barbosa)[facility]08-11-2023 History and physical note* Dominick Barbosa MD [...] Last Updated: 15-May-2023 11:51 by Dominick Barbosa) [facility] Work Phone: 1(366) 361-397308-11-2023 History and physical note* Dominick Barbosa MD [...] 11:51 by Dominick Barbosa) documented in this [facility] Work Phone: [phone] Evaluation note* Encounter Date Diagnosis Assessment Notes Treatment Notes Treatment Clinical Notes Jan, Inverted papilloma of nasal cavity (ICD-10 - D14.0) [employer] Other 04-04-2023 Chief complaint Narrative - Reported* [...] 5. Obstructive sleep apnea on positive pressure XS-Rbhidzbnpdtusx-[facility]hozdvpSan[facility] 4[facility] Work Phone: 1([phone]) 222-407104-04-2023 History of Present illness Narrative* Reason for visit: * WALE GREY patient presents since last being seen 01/06/23. * Wale presents for routine follow-up. He is interested in going forward with his inverted papillomaresection and would like to schedule it as soon as there is availability. WE-Qcmpzpjfefwoaa-Avegjexc Work Phone: [phone] History of Present illness Narrative* Reason for visit: * WALE GREY patient presents since last being seen 01/06/23. * Wale presents for routine follow-up. 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 YX-Aunzdkgwaqqsji-IdwnkihSan[facility] 4[facility] Work Phone: [phone] Evaluation note* Encounter Date Diagnosis Assessment Notes [...] for congestion, Tylenol for pain and fever. [employer] Other 12-01-2020 History of Present illness Narrative* [...] and is using flonase only as needed. TW-Wwrwwmfyspjnji-Avmfxyes Work Phone: [phone] History of Present illness Narrative* Reason for [...] well outside of some nasal breathing issues. UX-Sfxmrlosvyqgkn-DdboskjSan[facility] 3[facility] Work Phone: Evaluation note* Diagnosis Chronic ethmoidal sinusitis Benign neoplasm of middle ear, nasal cavity and accessory sinuses Benign neoplasm of nasal cavities, middle ear, and accessory sinuses Chronic sinusitis, unspecified documented in this encounter [facility] Work Phone: Evaluation note* Diagnosis Chronic ethmoidal sinusitis- Primary Other chronic sinusitis Chronic sphenoidal sinusitis documented in this encounter [facility] Work Phone: Evaluation note* Diagnosis Chronic ethmoidal sinusitis- Primary Chronic maxillary sinusitis documented in this encounter [facility] Work Phone: Evaluation note* Diagnosis Onset Date Resolution Status Bulging lumbar disc acute Elevated BP without diagnosis of hypertension acute Low back pain acute Obesity acute Wellness examination acute [facility] Work Phone: Evaluation note* Diagnosis Post-nasal drainage- Primary Other diseases of nasal cavity and sinuses Chronic maxillary sinusitis Nasal congestion Other diseases of nasal cavity and sinuses documented in this encounter [facility] Work Phone: Evaluation note* Diagnosis Onset Date Resolution Status Bulging lumbar disc acute Elevated BP without diagnosis of hypertension acute Low back pain acute Obesity acute Wellness examination acute IFG (impaired fasting glucose) acute Acute sinusitis noneactive [facility] Work Phone: History general Narrative [...] ethmoidectomy 08/25/2019 Hospitalization History see surgical history [employer] Other History of Present illness Narrative* Wale [...] 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 XW-Nwpcwmfbluvkzp-XqyuejmSan[facility] Work Phone: Summary Purpose Family History No [...] Complaint and Reason for Visit Chief Complaint [facility] Reason for Visit Bulging lumbar disc Elevated BP without diagnosis of hypertension Low back pain Obesity Wellness examination Chief Complaint [facility] [phone] sinus infection Reason for Visit Bulging lumbar [...] section and content) DATE CREATED AUTHOR 03/06/[address] [facility] DATE CREATED AUTHOR AUTHOR'S ORGANIZ ATION 11/24/2022 [facility] pital DATE CREATED AUTHOR AUTHOR'S ORGANIZ ATION 05/28/2023 [employer] DATE CREATED AUTHOR AUTHOR'S ORGANIZ ATION 06/05/2023 [facility] DATE CREATED AUTHOR AUTHOR'S ORGANIZ ATION [facility] DATE CREATED AUTHOR AUTHOR'S ORGANIZ ATION 09/26/2024 [facility] REASON FOR VISIT (unrecogniz ed section and content) Reason Comments Other Right endoscopic sin us surgery with image guidance, right endoscopic medial maxillectomy, septoplasty Reason Comments Follow-up Care Teams (unrecognized sec tion and content) Chlorinator Operator Relationship Specialty Start Date End Date Enzo Vasques DO PCP - General 09/21/19 Chlorinator Operator Relationship Specialty Start Date End Date Enzo Vasques DO PCP General 09/21/19 Chlorinator Operator Relationship Specialty Start Date End Date Enzo Vasques DO PCP General 09/21/19 Cristiana Triplett APRN-[employer] [id number] [place] [address] PCP - Cyndie ENCISO PCP 09/04/23 Team Status: Active Member Role Status Dates Enzo Vasques DO Primary Care Provider Active Team Status: Inactive Member Role Status Dates Enzo Vasques DO Primary Care Provide r, Attending Provider Active Start: June 03, 2024 End: June 03, 2024 Chlorinator Operator Relationship Specialty Start Date End Date Enzo Vasques DO PCP Rust 09/21/19 Team Status: Active Member Role Status Dates Enzo Vasques DO Primary Care Provide r, Attending Provider Active Start: June 08, 2024 Team Status: Inactive Member Role Status Dates Enzo Vasques Primary Care Provide r, Attending Provider Active [...] BE BASED ON THE PRIMARY CLINICAL RECORDS. [facility]. provides no warranty or guarantee of the accuracy or completeness of information in this document.
[2025-01-02 07:53] VITALS: BP 154/97; PULSE 78; TEMP 36.2; O2SAT 97
[2025-01-02 07:53] LABS: Glucometer 121 mg/dL (74-106)
[2025-01-02 08:51] VITALS: BP 162/81; PULSE 81; O2SAT 97
[2025-01-02 08:52] VITALS: BP 160/95; PULSE 77; O2SAT 98
[2025-01-02] MEDS: BUPIVACAINE HCL 0.25% PF 25 MG/10 ML VIAL 8 ML INJ (08:52)
[2025-01-02] MEDS: LIDOCAINE HCL 2% 400 MG/20 ML MDV INJ (08:53)
--- NOTE | 2025-01-02 08:56 | W.PM.PROCNOT ---
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 An informed consent was obtained and placed on the chart.? The patient was brought to the medical procedure unit and placed in the prone position.? A timeout was completed verifying correct patient, procedure site, positioning, plan, and special equipment.? Using aseptic technique, the needle was placed at left L4. Under direct fluoroscopic visualization a Quincke-tipped spinal needle was advanced to the junction of the superior articulating process with the transverse process at the designated medial branch segment.? Preceded by negative aspiration, the above-mentioned injectate was placed in 1 mL aliquots.? The procedure was repeated at left L5, S1.? The needle was removed and insertion site was covered. The same procedure, at the same levels, was completed on the right side. The patient was taken to the postprocedural recovery area and monitored for an appropriate length of time before found suitable for discharge in the company of a responsible adult. Anesthesia: Local Surgeon: Ruth Pfeiffer Pathology: none sent Condition: stable Disposition: no change
== END 2025-01-02 08:59 | disposition home or self-care (01) ==
PROVIDERS: Family Provider Internal Medicine; PCP Internal Medicine; Visit Provider Anesthesiology
DX: M47.816 Spondylosis without myelopathy or radiculopathy, lumbar region (principal); M54.50 Low back pain, unspecified; E11.8 Type 2 diabetes mellitus with unspecified complications; Z79.84 Long term (current) use of oral hypoglycemic drugs
CPT/HCPCS: 36415; 64493; 64494; 82948; J0665

== ENCOUNTER 2025-01-05 14:58 | Outpatient (OUT) | payer BC, SELFPAY ==
--- NOTE | 2025-01-05 15:05 | PM.CN ---
Consult Note: HPI Data of Consult Patient: known to practice within the last 3 years Requesting Physician: Shaneka Pena NP Primary Care Provider: Enzo Vasques DO Family Provider: Enzo Vasques DO Consult Narrative Reason for consult: low back, left leg pain Narrative: 24yom who presents for evaluation. 2 year history of low back, left leg pain. previous mri shows multilevel disc herniation and ddd. pain today 5-6/10 increasing to 10/10 at the most. Pain increased with standing, walking, lifting, housework, bending, and activity. pain improved with sleep and sitting. utilizes flexeril 10mg TID PRN pain/spasms. recently underwent bilateral L4-5 L5-S1 MBB #1 with >80% improvement in pain and functional ability while anesthetized. preop pain up to 10/10 post op pain 2/10. cc:: CC: Shaneka Pena NP Review of Systems ROS Status of ROS 10 or more systems reviewed and unremarkable except as noted in history and below Musculoskeletal Reports: back pain and extremity pain PFSH PFSH Medical History (Updated 09/07/24 @ 08:22 by Holly Campbell RN) History of inverted papilloma ?Z86.018 - Personal history of other benign neoplasm (ICD-10) Sleep apnea ?G47.30 - Sleep apnea, unspecified (ICD-10) Asthma ?J45.909 - Unspecified asthma, uncomplicated (ICD-10) Pre-diabetes ?R73.03 - Prediabetes (ICD-10) Surgical History (Updated 09/07/24 @ 08:22 by Holly Campbell RN) History of sinus surgery ?Z98.890 - Other specified postprocedural states (ICD-10) Meds Home Medications and Allergies Home Medications ?Medication ?Instructions ?Recorded ?Confirmed ?Type metformin 850 mg tablet 850 mg PO DAILY 07/04/24 01/02/25 History baclofen 10 mg tablet 10 mg PO BID 07/28/24 01/02/25 History meloxicam 7.5 mg tablet 7.5 mg PO BID 07/28/24 01/02/25 History cyclobenzaprine 10 mg tablet 10 mg PO TID PRN muscle spasm #90 12/22/24 01/02/25 Rx tabs gabapentin 300 mg capsule 300 mg PO .qhs #30 caps 12/22/24 01/02/25 Rx Allergies Allergy/AdvReac Type Severity Reaction Status Date / Time No Known Drug Allergies Allergy Verified 01/02/25 08:09 Exam Constitutional Vital Signs, click to edit/add: BP elevated, denies chest pain headache and SOB Documenting provider has reviewed patient's vital signs: yes Common normals: no apparent distress, oriented x3, healthy appearing, alert and well nourished General appearance: cooperative HENMT Common normals: normocephalic, hearing grossly normal bilaterally and moist oral mucous membranes Head and scalp: normocephalic Eye Common normals: PERRL Pupil: PERRL Neck & C-Spine Common normals: full ROM General: normal visual inspection Chest Common normals: inspection of chest normal Respiratory Common normals: normal respiratory effort, no retractions and no use of accessory muscles Back & Pelvis Lumbar spine/lower back: ROM limited, pain with ROM and lumbar spinal tenderness Lumbar spinal tenderness location: L4 and L5 Sacroiliac joints: SI joints normal Other: positive facet loading Neuro Common normals: oriented x3, CN's II-XII intact bilaterally, moves all extremities, no focal motor deficits, no sensory deficits noted and deep tendon reflexes 2+ bilaterally Sensorium/orientation: alert Motor exam: strength 5/5 throughout and no movement abnormalities noted Psych Common normals: mental status grossly normal, thought process normal, cooperative, affect normal, speech normal and activity/motor behavior normal Speech: normal speech Thought process: normal thought process Results Additional Findings Additional findings: If on a controlled substance or opioids, I have checked an [place] report on this patient and there are no aberrancies noted in the prescribing history.??If on a controlled substance or opioid a drug screen was completed and reviewed within the last year, and if there has not been a drug screen completed we ordered one today to monitor higher risk, state monitored pain medication use. As part of providing excellent, safe, comprehensive care, the following was completed at our patient's visit: 1. A medication reconciliation and review to ensure accurate knowledge of current/active medications, including asking our patients to inform us about any [id number] medications or herbal remedies/nutritional supplements/alternative remedies. 2. A review to specifically ensure our patients have had annual screening for screening for depression, screening for tobacco use, and screening for unhealthy alcohol use. For concerning screenings had a discussion with the patient, provided patient education, and recommended follow-up with primary care provider when appropriate. If patient noted with a risk of falling, they received education on strength, gait, and balance training to prevent future risk of falling. Portions of this note may have been carried over from the previous visit and updated as appropriate. Please note this office utilizes paper charting in addition to the electronic medical record. A list of current medications, vitals, and PMH is available there as the clinical staff outside of myself do not have access to [facility] charting during the clinic day operations. As part of providing quality comprehensive care the current medications, vitals, and PMH were reviewed in the paper chart. Assessment and Plan Assessment and Plan (1) Lumbar spondylosis: Assessment and Plan: The patient has had over 3 months of moderate to severe low back pain with functional impairment and inadequate response to conservative care including NSAIDS (unless there are contraindication such as concurrent blood thinners), multiple oral or topical pain medications, and home exercise program/physical therapy.? Patient has completed >6 weeks of guided home exercise program and/or formal physical therapy program without relief of their symptoms.? The Oswestry Disability Index was completed, and the patient scored a 22%.? The patient noted the following:?? moderate to severe pain with standing, walking, twisting, lifting, sleep, social life and travel We discussed the risks and benefits of the procedure with the patient, and we are NOT planning on using sedation as outlined in the guidelines from Medicare unless there is a documented reason that sedation would be strongly recommended.?? ?The procedure will be completed with fluoroscopic guidance.? (2) Lumbar stenosis with neurogenic claudication: (3) Lumbar disc displacement without myelopathy: (4) Lumbar radiculopathy: (5) Myalgia: Plan bilateral L4-5 L5-S1 facet medial branch block x2 working towards RFA for axial facet mediated low back pain continue cyclobenzaprine 10mg TID PRN pain/spasms continue gabapentin 300mg HS declining NS consultation at this time f/u after each injection
== END 2025-01-05 14:59 | disposition home or self-care (01) ==
LOC: PM 14:59
PROVIDERS: Family Provider Internal Medicine; PCP Internal Medicine; Visit Provider Nurse Practitioner
DX: M47.816 Spondylosis without myelopathy or radiculopathy, lumbar region (principal); M48.062 Spinal stenosis, lumbar region with neurogenic claudication; M51.26 Other intervertebral disc displacement, lumbar region; M54.16 Radiculopathy, lumbar region; M79.18 Myalgia, other site
CPT/HCPCS: G0463

== ENCOUNTER 2025-01-16 06:53 | Day surgery (SDC) | payer BC, SELFPAY ==
--- OUTSIDE RECORDS SUMMARY | 2025-01-16 06:56 | XMS_ITS | CCD ---
Author Organization [facility] CliniSysd Care Team Providers Care Restaurant Assistant Name Role Phone Virginia Enzo Segovia Unavailable Unavailable Unavailable VIRGINIA, DR IGRALDO Admitting Unavailable BALL, DR GIRALDO Attending Unavailable [...] vailable Virginia, Dr. Enzo Diallo Primary Care Unavai labfred Barbosa, Dr. Dominick Talavera Attending Dolly [...] Vasques, Dr. Enzo Diallo Primary Care Dollyshilpi beaulieu Virginia SHER, Enoz Diallo Primary Care Provider U negro [place] SHER, Enzo Diallo Primary Care Provider Enzo Vasques DO Primary Care Provider carmendavid VOCAL MUSIC INSTRUCTOR-CATHETER BUILDER, Cristiana A Unavailable [phone] Kentrell HUBBARD, Ruth Durán Attending Unavailable Kentrell HUBBARD, Ruth Durán Attending Unavailable Kentrell HUBBARD, Ruth Durán Attending Unavailable DOMINICK BARBOSA Attending Unavailable ENZO VASQUES Primary Care Unavailable DOMINICK BARBOSA Attending Unavailable ENZO VASQUES Primary Care Unavailable DOMINICK BARBOSA Attending Unavailable ENZO VASQUES Primary Care Unavailable Allergies Allergy Classification Reported Allergen(s) Allergy Type Date of Onset Reaction(s) Facility (8 sources) bee pollen Allergy to substance (finding) -[facility]olog -[place] Work Phone: (1 source) patient allergy list reviewed by nurse or physicia Propensity to adverse reactions 6 Comment:Done [employer] Other Medications Current Medications Medication Drug Class(es) [...] Ford on 07-19-2024 Laboratory comment Pasquale (Report) l6whhUTtPCKwh9ftOTWeeXHvE zEwMzNcZnRuYmpcdWMxIHtccn KtSNsha8BkI2YbTsCfMEnjebR sZPDuMbjgicwbJYVvYEK1yjMz LHGwICvzMUMvOFqxDp0ztNIdc ZcyBtAkHNKxl0dqvdAAXJziCB PWJEi5u3qmMHQsJtX3fQCwWLg aU3ovrtKhqFFkT0Rcb0MxEZq8 mB91PJTrrJ0zgBDxSJdtldLfL dU0UXetDOMeYqX2XCNekWCxZC VuZ5wvPFUuUTwwJQHgOFcyyVF eIIE5wTjax2N2vEFmcCIdjUqj WzEsJzJoYoZVp5PlIAe0dTuoW 4FrCKPfRxB1mMTyKYVlSBciJK GyGDAfwhN8zK85FTnudrX7jOI rs4Rmm47ln882kQ7pqHYjAXW0 WKGqVEMdlKRyCJJaBCS6PTWat CJeV6wtVcAlqPDxK8KdEeFvkP XeU5CbLpTgxUKrU4OcNwDhvRY kFWPcdXI0EUomh236ZVX6ZuVn AJ0qE1Kcn3B6jN3csDBmSVYqj VMjXuRoZWUdwn0kbZRgHNnbh2 QfLAD2vkH4oKVecIRcGZKgWD1 1Bwxln3QmHcskNUV8QYVytdGu w0Xlr3idUtRlbrEmI8khQ4MwV UGxDHPiAUYiUgCpidZnt7Igb9 QksELjcIe7i3ttGMBfUFDzkMm um8laKLT1KRQmT9L6mIPkf9ha RXeeCOPmxOP2wuS4DUqaIGQly qT6keZ6MTfwMYOecEC4fxY3BL ycUWBhWjZ1phE5LPouTIIsTQE 7SyApODDgz0ErkarlEhPfy0Qk dDWoSXauR87fy809ERQzasNyB 1xwbGFpblxwbGFpblxmMFxmcz B3CXJyHGEhADedQGBlHMEnKrL cbGFuZzEwMzNcaGljaFxmMVxk CyMqDQEaYEcnK8ybUeUpFpBcV EZMnUD9qDGdb6pjedW0yOBvSK 1aEJWfzJMfksNpv3C7GXA3xJR feJ1acBNwDUXpoIUtcgEnrh65 vSLhxOI9AWYnTMHfdYFvxA6hD PGrWAEErI6uaPXHeaSmkkMpFO GvpYcwqv6CjWUdcp2qtVXnM9S ydGlmaWVzIHRoYXQgdGhleSBo FKUuILYnwxysw4AxZBMytJYbI 9QuVO3sPIJmhj50 [facility] Work Phone: Pathology report Cancer Narrative Surgical Pathology Case: [id number] Authorizing Provider: Dominick Barbosa MD Collected: 07/13/2024 140 Ordering Location: [facility] [place] Received: 07/13/2024 140 Pathologist: Shakir Ford DDS Specimen: NASAL MASS RIGHT BIOPSY [facility] Work Phone: Pathology report final diagnosis Narrative z3mosCPwESTddRIjFEssWdyze xBdLKGoaZLvB6VzbiivKBymQJ 6qGY2pyJdpcKMkcLJkWWHkXlX wi5ynm592kBOih8buVJFRbslm mCv0lCkxM87mn8S9MtewT2teU BJeTPmhSPAaEKjotDScNHp8QH BhcGVydzEyMjQwXHBhcGVyaDE 4EWMvZN9xfrhvYZqkVAmeVPOy adH2SKKzjNKlK5MqWNXhJX3jw slvMPT9EGefNBMpECZ3WwVdFV Jme8Siexe8VpHwpTh3z4deMYA gPUMnkLtps9kySHF2IKIntKZq I0nhmM8tYFYaVF6pcyaws4wvK ZihFByaRCOapLF8fjF1JZFmqC LsG2WhbZ5nQGGhRLRtqrWseSz lfY4gBfHhDzehQkFgSvWcWAcn X5V8qLL8EYAqpNpfbYJcGVZqQ CChqR5je4y6FBNkcuohztPin6 geNHLjnp8yOLOwtPVvpTHjw3C wBV0kFQFglt0rrVVbuL9tqUIy hHE6zO0iITzccZtmLWTtnAU4p 0MzJBH3mu5lXUcrH84xz6toaS YaiPO3uCPrTYRjnz8eZLNarMP pifMuPE1iFBLoxontcM6ljGHk XHBhcn0= [facility] Work Phone: Pathology report gross observation Narrative y3mouCQhYNDmpCAVKGA7UTDgH P4heShgkXh3eAouIZPbmzM8bY IqPLcai5fxTCY0b0vzlyGJPec lJNRjGS6zHJqeONIcJC1sRwOp XGRlZmYxXHBhcGVydzEyMjQwX LYumKMddHO8APGgIU2pfznnFE smLJphBCGjryY9VAAwyJZoJ7G iJCQhZM1gfcpcQPK8NNDSWdyz Gt1nsZDjxUVTIfexVlOzOtWoH QZdPZVbOLHmf2vrflRHUFusBK FILSk3EMp4DUOsVNNzlJYqr6E 0FLjbx4agl5DbSRUdAQh1cR3P JktqDQJ0WWDDJazcWwhjsQrif 2VjdCBcXHNnIFxcaWQgNTEwMD KnTWlxFxVKSwSuJrXvRHZ9IJv 1JvGwHOh4CVsyNwXFFDD4DUs2 SsabNQa3WYdtLJpdkDYtIWHjU LXhBCFlRFvbljH6c4twMXMbzC LtHQM7HTmfh4seOJssTUJ3NUO dMtVcYNYnKY4PLvLlOPI1MlW7 KiyaSfF5QQg7STCFLsLfUdQhE ZLkMat2DEgbKDq4REs2HJyUHs ZsFXB9BzRnLGCvOMG6IMF8FZo bvunaDLl1GVFmSJsvceXwCYkj QpagVPglX97adJUhZBGYWzopu GFpblxlcGljTmVzdERvYzEgDQ layEYibHDbZF7QTHl2nbMqIBM lGSUyGpEmMOmdHvQaSAi3GGFo xN0xNx2wgMKikN3jMUrzJcWzZ QSak8b9gFJ0iNCuyOE6zVQvoA rsAY2lkGUrHO4iGPuuy6KxeRY rIH25kPOyryWycaRbBf5ao6Oe IR5un6FkFqeyyAE6IKAoW4k2P tnsOVTyXE66oUFwxJpbJJIhmf IaT9GfWGEun0SljOCzwQJdo1C gdGFuLXdoaXRlIHNvZnQgdGlz q7KsIUEiG5MhY4P3bL1zRDPlF INnWMM5SHLmIiK8CSIvYSAckF 2rYEFdILLvqQCewC9jbwQngeH efYXnlCZ3IBGxlU3uoV21amFn jiMylfCvF7Wwz4A5wARyKHYar wPEHomgPRRvCWBkhSGOo1ZsFE CLZjHISk3IEFTmuENXONI2QZ0 xZKlcAAOdI7AmD7TovhZ3l2sj zXsao5EctYBcWZ9diSJyAV1NC SGqbwVoGCqvyJoljR6cOLq1 [facility] Work Phone: Pathology report relevant history Narrative w6yvwAEsETXph5beQZMpbAFnX cPgPxXgXnDlQkv0YBAdrgV5Fe z2EHZlLGgguO3vTZQeWMpjP9l renKvnUEtGFGeROf4vE4gtPzu lA4rOsRiGmAoYQHbgWUxquduJ U0ytQhmaLSmoQObqW02n5a7gZ NccGFyIH0= [facility] Work Phone: Resident Review n7lxfDTmLLIbfVFyNUtc Mlxhb iBtGNLmfQLeC9MhtuwcKKwdWU 3fZK9rmTcljDYyjIWxWPRqHjJ bv5szf420bAAcs2vdEIBRrcth sIi8tVvkM91kh4N1EpciR35bw MRbMCH1TSAfIFNnuRNvFVPwNH L5BVLquWEaA2urPBRmXZ0nrvv xLOugACvzPOTttDD9OBIfyUVy R4YpMTAcLIzoODQvbcl0PfYrX k0ozBGyyJhrXBtoNOXqVMGcRD qbVNEhAgRzPMolIVsra7SxCGQ oWU4miqJvjEBbq6Lci9BuWoEn cT4tnB6ugqI6UCTxYSIwtzxwf 4NaXOhdLVDgzll6qeB1fL8gIP shqZstrSD7qB5au3w7VHSkv0c hVE17AKYAYK4rhRObW7CmmJ2s KQFUBN8hpPAlVHYcqeWyxIOve Q== [facility] Work Phone: [facility] Work Phone: Surgical pathology studyon 1 Surgical pathology study Pathology report.total SEE COMMENT Surgical Pathology Case: [id number] Authorizing Provider: Dominick Barbosa MD Collected: 07/13/2024 140 Ordering Location: [facility] [place] Received: 07/13/2024 140 Pathologist: Shakir Ford DDS [...] is submitted in toto in one cassette. [facility] Ambulatory Basophils Auto (Bld) [#/Vol] on 06-08-2024 Basophils (Bld) [#/Vol] 0.1 10 3/uL 0.0-0.1 [facility] Basophils/100 WBC Auto (Bld) on 06-08-2024 Basophils/100 WBC (Bld) 1.2 % 0.2-2.0 [facility] Cholesterol in LDL Calc [Mas s/Vol]on 06-08-2024 Cholesterol in LDL [Mass/Vol] 66.0 mg/dL [facility] Comment on above: <100 mg/dl FXTTJRK77 0-129 mg/dl NEAR OR ABOVE ILUUAWN815-705 mg/dl BORDERLINE GFYD977-141 mg/dl HIGH>190 mg/dl VERY HIGH Cholesterol in VLDL Calc [Ma ss/Vol]on 06-08-2024 Cholesterol in VLDL [Mass/Vol] 43.0 mg/dL [facility] Eosinophils/100 WBC Auto (Bl d)on 06-08-2024 Eosinophils/100 WBC (Bld) 3.1 % 0.9-7.0 [facility] Erythrocyte distribution wid th Auto (RBC) [Ratio]on 06-08-2024 Erythrocyte distribution width (RBC) [Ratio] 13.0 % 11.0-15.0 [facility] Estimated glomerular filtrat ion rate (GFR) non- Americanon 06-08-2024 GFR/1.73 sq M.predicted among non-blacks MDRD (S/P/Bld) [Vol rate/Area] mL/min/{1.73_m2} >=60 [facility] Globulin Calc (S) [Mass/Vol] on 06-08-2024 Globulin (S) [Mass/Vol] 4.1 g/dL [facility] Glucose mean value [Mass/vol ume] in Blood Estimated from glycated hemoglobinon 06-08-2024 Average glucose Estimated from glycated hemoglobin (Bld) [Mass/Vol] 128 mg/dL [facility] Hematocrit Auto (Bld) [Volum e fraction]on 06-08-2024 Hematocrit (Bld) [Volume fraction] 45.3 % 42.0-54.0 [facility] Hemoglobin [Mass/volume] in Bloodon 06-08-2024 Hemoglobin (Bld) [Mass/Vol] 14.6 g/dL 14.0-18.0 [facility] Laboratory - Chemistry and C hemistry - challengeon 06-08-2024 Albumin [Mass/Vol] 3.6 g/dL 3.4-5.0 [facility] ALP [Catalytic activity/Vol] 86 U/L 46-116 [facility] ALT [Catalytic activity/Vol] 46 U/L 16-63 [facility] AST [Catalytic activity/Vol] 27 U/L 15-37 [facility] Bilirubin [Mass/Vol] 0.5 mg/dL 0.2-1.0 [facility] Calcium [Mass/Vol] 9.3 mg/dL 8.5-10.1 [facility] Chloride [Moles/Vol] 100 mmol/L 98-107 [facility] Cholesterol [Mass/Vol] 147 mg/dL <=200 [facility] Cholesterol in HDL [Mass/Vol] 38 mg/dL Low 40-60 [facility] Comment on above: > or =60 mg/dl - LOW CARDIOVASCULAR RISK<40 mg/dl - HIGH CARDIOVASCULAR RISK CO2 [Moles/Vol] 28.7 mmol/L 21.0-32.0 [facility] Creatinine [Mass/Vol] 0.93 mg/dL 0.70-1.30 [facility] GFR/1.73 sq M.predicted MDRD (S/P/Bld) [Vol rate/Area] mL/min/{1.73_m2} >=60 [facility] Glucose [Mass/Vol] 121 mg/dL High 74-106 [facility] Potassium [Moles/Vol] 4.2 mmol/L 3.5-5.1 [facility] Protein [Mass/Vol] 7.7 g/dL 6.4-8.2 [facility] Sodium [Moles/Vol] 138 mmol/L 136-145 [facility] Triglyceride [Mass/Vol] 215 mg/dL High <=150 [facility] TSH Qn 3.486 m[IU]/L 0.358-3.740 [facility] Urea nitrogen [Mass/Vol] 16.0 mg/dL 7.0-18.0 [facility] Urea nitrogen/Creatinine [Mass ratio] 17.2 mg/mg [facility] Laboratory - Hematology and Cell countson 06-08-2024 HbA1c (Bld) [Mass fraction] 6.1 % 4.5-6.2 [facility] Comment on above: ADA RECOMMENDED LIMI T 4.0 - 6.0ADA THERAPEUTIC TARGET < 7.0ACTION SUGGESTED> 7.0 Immature granulocytes/100 WBC (Bld) 0.3 % 0.0-0.5 [facility] Leukocytes [#/volume] correc giselle for nucleated erythrocytes in Blood by Automated counon 06-08-2024 WBC corrected for nucl RBC Auto (Bld) [#/Vol] 7.2 10 3/uL 4.0-11.0 [facility] Lymphocytes Auto (Bld) [#/Vo l]on 06-08-2024 Lymphocytes (Bld) [#/Vol] 2.3 10 3/uL 1.2-3.8 [facility] Lymphocytes/100 WBC Auto (Bl d)on 06-08-2024 Lymphocytes/100 WBC (Bld) 32.3 % 20.5-60.0 [facility] MCH Auto (RBC) [Entitic mass ]on 06-08-2024 MCH (RBC) [Entitic mass] 29.0 pg 25.9-34.0 [facility] MCHC Auto (RBC) [Mass/Vol]on 06-08-2024 MCHC (RBC) [Mass/Vol] 32.2 g/dL 29.9-35.2 [facility] MCV Auto (RBC) [Entitic vol] on 06-08-2024 MCV (RBC) [Entitic vol] 89.9 fL 80.0-94.0 [facility] Monocytes Auto (Bld) [#/Vol] on 06-08-2024 Monocytes (Bld) [#/Vol] 0.4 10 3/uL 0.3-0.8 [facility] Monocytes/100 WBC Auto (Bld) on 06-08-2024 Monocytes/100 WBC (Bld) 6.1 % 1.7-12.0 [facility] Neutrophils Auto (Bld) [#/Vo l]on 06-08-2024 Neutrophils (Bld) [#/Vol] 4.1 10 3/uL 1.4-6.5 [facility] Neutrophils/100 WBC Auto (Bl d)on 06-08-2024 Neutrophils/100 WBC (Bld) 57.0 % 43.0-75.0 [facility] No Panel Informationon 06-08 Eosinophils # (Auto) 0.2 10 3/uL 0.0-0.7 [facility] Immature Granulocyte # (Auto) 0.02 10 3/uL 0.00-0.03 [facility] Platelet mean volume Auto (B ld) [Entitic vol]on 06-08-2024 Platelet mean volume (Bld) [Entitic vol] 10.0 fL 9.5-13.5 [facility] Platelets Auto (Bld) [#/Vol] on 06-08-2024 Platelets (Bld) [#/Vol] 355 10 3/uL 150-450 [facility] RBC Auto (Bld) [#/Vol]on RBC (Bld) [#/Vol] 5.04 10 6/uL 4.70-6.10 [facility] Serum or plasma albumin/glob ulin mass ratioon 06-08-2024 Albumin/Globulin [Mass ratio] 0.9 {ratio} [facility] Serum or plasma anion gap de terminationon 06-08-2024 Anion gap [Moles/Vol] 13.5 mmol/L [facility] Serum or plasma total choles terol/high density lipoprotein (HDL) cholesterol mass maria luz 06-08-2024 Cholesterol.total/C holesterol in HDL [Mass ratio] 3.9 {ratio} [facility] Comment on above: 3.3 - 4.4 LOW [...] reviewed this case. Diagnostic interpretation performed at [facility] [address] [facility] [address] Clinical History: Physician Contact Number: [phone] Fixative (A): Saline Fixative (B): Saline Clinical [...] specimen is entirely submitted in 7 cassettes. [facility] B: Received in formalin, labeled with the patient's name and hospital number and B, microdebrider contents , are multiple, irregular segments of blood and soft tissue aggregating to 5.4 x 3.7 x 1.5 cm. Nutritionists sections are submitted in 8 cassettes [facility] Note: Per the pathologist, the rest of specimen B is submitted in toto in 17 additional cassettes. 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 Please feel free to contact my office by calling [phone] with any questions. Provider Impressions 1. 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 Please feel free to contact my office by calling [phone] with any questions. Provider Impressions 1. Inverted [...] day Tylenol TABS Vitals Vital Signs Recorded: [id number] 07:57AM Height6 ft Gduqwq205 lb 8 oz BMI Scdbwkvdyz58.81 kg/m2 BSA Calculated2.89 Tobacco Useb) No Falls [...] (Please see procedure below.) SINONASAL ENDOSCOPY (CPT 31011): To better evaluate the patient's symptoms, sinonasal [...] May 27 2023 8:22AM EST (Author) [facility] [employer] Tobacco Screening.on 023 Fall risk assessment a) No falls within the last year [facility] Work Phone: Tobacco use status [facility] b) No -Otolaryn ology 4101 Work Phone: Established Visit (Otolaryng ology)on 05-20-2023 Established Visit (Otolaryngology) Diagnoses/Problems Chronic ethmoidal sinusitis (473.2) (J32.2) Chronic maxillary sinusitis (473.0) (J32.0) 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 Please feel free to contact my office by calling [phone] with any questions. Provider Impressions 1. Inverted [...] asked him to reach out to my candy spreader helper and we discussed some time parameters today. [...] TIMES DAILY NEEDED. Vitals Vital Signs Recorded: [id number] 12:20PM Height6 ft Resbtj341 lb 3.2 oz BMI Pjxjgwxtnp05.31 kg/m2 BSA Calculated2.91 Tobacco Useb) No PHQ-2 [...] (Please see procedure below.) SINONASAL ENDOSCOPY (CPT 19675): To better evaluate the patient's symptoms, sinonasal [...] May 20 2023 1:59PM EST (Author) [facility] [employer] Tobacco Screening.on 023 Adult depression screening assessment No [facility] 3045 Work Phone: Fall risk assessment a) No falls within the last year [facility] 1011 Work Phone: Tobacco use status [facility] b) No [facility]-Otolaryng ology- 4100 Work Phone: No Panel Informationon 05-15 [facility]-Otolaryng ology- 4100 Work Phone: Order Reconciliationon 05-15 Order [...] Assistance Level: (more content not included)... Normal [facility] Patient Profile - Preop v3on 05-15-2023 Patient Profile - Preop v3 Patient Profile - Preop: Initial Info: Patient DemographicsName: WALE GREY Date: 2000 Address: [address] [place] [address] [place] [address] Primary Phone [phone] How to be AddressedDylan Spoken Language PreferredEnglish Stated Reason for Admissioninverted papilloma Primary Contact Name and NumberKelly, mom [phone] Limitations on Visitors/Phone Callsnone Medications Brought to Hospitalno General Health: Weight in kg185.1 kilogram(s) Weight in cak678 pound(s) Height in feet5 feet Height in ftvvga03.97 inch(es) Height in cm182.8 centimeter(s) BMI (kg/m2)55.392 square meter Patient or Family Member Reaction to Anesthesiano previous reaction Blood Avoidance/Restrictionsnon e Previous Transfusion Reactionno Health Mgmt: Symptoms/Conditions Managed at Homerespiratory Respiratory Symptoms/Conditionssleep disordered breathing Barriers to Managing Healthnone Relationship/Environ: Lives Withparent(s) Living Arrangementshouse Living Environment Commentsmom Resource/Environmental Concernsnone [facility] Anticipated at Transitionnone Tobacco Use: [...] Updated: 15-May-2023 11:21 by Ginny Cohen) Normal [facility] Surgical Pathology Depar tmenton 05-15-2023 [facility] Surgical Pathology Department Name WALE GREY Pathologist: [...] reviewed this case. Diagnostic interpretation performed at [place] [id number] Clinical History: Physician Contact Number: [phone] Fixative (A): Saline Fixative (B): Saline Clinical [...] specimen is entirely submitted in 7 cassettes. [facility] B: Received in formalin, labeled with the patient's name and hospital number and B, microdebrider contents , are multiple, irregular segments of blood and soft tissue aggregating to 5.4 x 3.7 x 1.5 cm. Nutritionists sections are submitted in 8 cassettes [facility] Note: Per the pathologist, the rest of specimen B is submitted in toto in 17 additional cassettes. [facility]/05/19/2023 [facility] Department of Pathology [address] [place] [id number] Normal [facility] Comment on above: Performed By: #### [facility] #### [facility] Surgical Pathology Department [address] [place] [address] BASIC METABOLIC PANELon 08-0 Anion gap [Moles/Vol] 16 mmol/L Normal 10 - 20 [facility] Comment on above: Performed By: #### B #### [address] [address] Calcium [Mass/Vol] 9.8 mg/dL Normal 8.6 - 10.6 [facility] Comment on above: Performed By: #### B MP #### [facility] [address] [place] [address] Chloride [Moles/Vol] 101 mmol/L Normal 98 - 107 [facility] Comment on above: Performed By: #### B MP #### [facility] [address] [place] [address] Creatinine [Mass/Vol] 0.81 mg/dL Normal 0.50 - 1.30 [facility] Comment on above: Performed By: #### B MP #### [facility] [address] [place] [address] eGFR MALE >90 Normal >90 [facility] Comment on above: Result Comment: CALC ULATIONS OF ESTIMATED GFR ARE PERFORMED USING THE 2020 CKD-EPI STUDY REFIT EQUATION WITHOUT THE RACE VARIABLE FOR THE IDMS-TRACEABLE CREATININE METHODS. https://jasn.asnjournals.org/content/early/ASN.62135442 88 Performed By: #### B MP #### [facility] [address] [place] [address] Glucose [Mass/Vol] 81 mg/dL Normal 74 - 99 [facility] Comment on above: Performed By: #### B MP #### [facility] [address] [place] [address] HCO3 (Bld) [Moles/Vol] 27 mmol/L Normal 21 - 32 [facility] Comment on above: Performed By: #### B MP #### [facility] [address] [place] [address] Potassium [Moles/Vol] 4.5 mmol/L Normal 3.5 - 5.3 [facility] Comment on above: Performed By: #### B MP #### [facility] [address] [place] [address] Sodium [Moles/Vol] 139 mmol/L Normal 136 - 145 [facility] Comment on above: Performed By: #### B MP #### [facility] [address] [place] [address] Urea nitrogen [Mass/Vol] 13 mg/dL Normal 6 - 23 [facility] Comment on above: Performed By: #### B MP #### [facility] [address] [place] [address] CBCon 05-12-2023 Erythrocyte distribution width (RBC) [Ratio] 13.0 % Normal 11.5 - 14.5 [facility] Comment on above: Performed By: #### C BC #### [facility] [address] [place] [address] Hematocrit (Bld) [Volume fraction] 47.2 % Normal 41.0 - 52.0 [facility] Comment on above: Performed By: #### C BC #### [facility] [address] [place] [address] Hemoglobin (Bld) [Mass/Vol] 14.4 g/dL Normal 13.5 - 17.5 [facility] Comment on above: Performed By: #### C BC #### [facility] [address] [place] [address] MCHC (RBC) [Mass/Vol] 30.5 g/dL Low 32.0 - 36.0 [facility] Comment on above: Performed By: #### C BC #### [facility] [address] [place] [address] MCV (RBC) [Entitic vol] 94 fL Normal 80 - 100 [facility] Comment on above: Performed By: #### C BC #### [facility] [address] [place] [address] NUCLEATED RBC 0.0 /100 WBC Normal 0.0-0.0 [facility] Comment on above: Performed By: #### C BC #### [facility] [address] [place] [address] Platelets (Bld) [#/Vol] 400 10*3/uL Normal 150 - 450 [facility] Comment on above: Performed By: #### C BC #### [facility] [address] [place] [address] RBC 5.03 x10E12/L Normal 4.50 - 5.90 [facility] Comment on above: Performed By: #### C BC #### [facility] [address] [place] [address] WBC (Bld) [#/Vol] 9.2 10*3/uL Normal 4.4 - 11.3 [facility] Comment on above: Performed By: #### C BC #### [facility] [address] [place] [address] Laboratory - Chemistry and C hemistry - challengeon 05-12-2023 Anion gap [Moles/Vol] 16 mmol/L 10 - 20 [facility] [place] [address] Work Phone: [phone] Calcium [Mass/Vol] 9.8 mg/dL 8.6 - 10.6 [facility] [facility] 4[address] Work Phone: [phone] Chloride [Moles/Vol] 101 mmol/L 98 - 107 [facility] [place] [id number] Work Phone: [phone] CO2 [Moles/Vol] 27 mmol/L 21 - 32 [facility] 4100 Work Phone: [phone] Creatinine [Mass/Vol] 0.81 mg/dL See Below [facility] 4[address] Work Phone: [phone] Comment on above: Reference Range: 0.5 0 - 1.30 Glucose [Mass/Vol] 81 mg/dL 74 - 99 [facility] [facility] 4[address] Work Phone: [phone] Potassium [Moles/Vol] 4.5 mmol/L 3.5 - 5.3 [facility] 4[address] Work Phone: [phone] Sodium [Moles/Vol] 139 mmol/L 136 - 145 [facility] [place] [address] Work Phone: [phone] Urea nitrogen [Mass/Vol] 13 mg/dL 6 - 23 [facility] [address] Work Phone: [phone] Laboratory - Hematology and Cell countson 05-12-2023 Erythrocyte distribution width (RBC) [Ratio] 13.0 % [facility] Below [facility] [address] Work Phone: [phone] Comment on above: Reference Range: 11. 5 - 14.5 Hematocrit (Bld) [Volume fraction] 47.2 % See Below [place] [address] Work Phone: [phone] Comment on above: Reference Range: 41. 0 - 52.0 Hemoglobin (Bld) [Mass/Vol] 14.4 g/dL [facility] Below [facility] [address] Work Phone: [phone] Comment on above: Reference Range: 13. 5 - 17.5 MCHC (RBC) [Mass/Vol] 30.5 g/dL below low threshold See Below [place] [address] Work Phone: [phone] Comment on above: Reference Range: 32. 0 - 36.0 MCV (RBC) [Entitic vol] 94 fL 80 - 100 [place] [address] Work Phone: [phone] Platelets (Bld) [#/Vol] 400 10*3/uL 150 - 450 [facility] [address] Work Phone: [phone] RBC (Bld) [#/Vol] 5.03 {x10E12/L} See Below [facility] [address] Work Phone: [phone] Comment on above: Reference Range: 4.5 0 - 5.90 WBC (Bld) [#/Vol] 9.2 10*3/uL 4.4 - 11.3 [facility] 4100 Work Phone: No Panel Informationon 05-12 >90 >90 [facility] 4100 Work Phone: Comment on above: CALCULATIONS OF AMANDA MATED GFR ARE PERFORMED USING THE 2020 CKD-EPI STUDY REFIT EQUATION WITHOUT THE RACE VARIABLE FOR THE IDMS-TRACEABLE CREATININE METHODS.https://jasn.asnjournals.org/content/early//ASN. 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 Provider Impressions 1. Inverted [...] DAILY UNTIL FINISHED. Vitals Vital Signs Recorded: [id number] 01:56PM Height6 ft Zwnhal461 lb 9 oz BMI Sgadpannhl92.63 kg/m2 BSA Calculated2.91 Tobacco Useb) No PHQ-2 [...] Screening.on 023 Adult depression screening assessment No [employer] Work Phone: Fall risk assessment a) No falls within the last year [employer] Work Phone: Tobacco use status CPHS b) No [employer] Work Phone: Established Visit (Otolaryng ology)on 01-06-2023 Established Visit (Otolaryngology) Diagnoses/Problems Chronic ethmoidal sinusitis (473.2) (J32.2) Chronic maxillary sinusitis (473.0) (J32.0) Nasal congestion (478.19) (R09.81) 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 Provider Impressions 1. 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 Please feel free to contact my office by calling [phone] with any questions. Provider Impressions 1. Inverted [...] No Reported Medications Vitals Vital Signs Recorded: 66Son0492 04:13PM Height6 ft Mnozwk312 lb 8 oz BMI Shxbxnvwxj27.89 kg/m2 BSA Calculated2.92 Tobacco Useb) No PHQ-2 [...] (Please see procedure below.) SINONASAL ENDOSCOPY (CPT 38782): To better evaluate the patient's symptoms, sinonasal endoscopy is indicated. After discussion of risks and benefits, and topical decongestion and anesthesia,an endoscope was used to perform (more content not included)... Normal [facility] [employer] Tobacco Screening.on 023 Adult depression screening assessment No [employer] Work Phone: Fall risk assessment a) No falls within the last year [employer] Work Phone: Tobacco use status [facility] b) No [employer] Work Phone: MRI LSPINE WO CONon 07-23-20 [...] by: ANTONIO WEINSTEIN Date: 2022-07-23 12:04 Normal [facility] XR LSPINE 2_3 VIEWSon 2021 XR LSPINE [...] by: ANTONIO WEINSTEIN Date: 2022-02-18 15:30 Normal [facility] Pathology Reporton 0 Pathology Report [id number]:12 7 Normal [facility] Coding Summary.on 08-31-2019 Coding Summary. CODING DATE: 019 FINAL [facility] STATUS: Home (Routine DC) PAYOR: [facility] [place] [employer] DESCRIPTION 5155 Level 5 Airway Endoscopy ADMIT DX: REASON FOR VISIT DX: J32.4 Chronic pansinusitis FINAL DX: PRINCIPAL: J32.4 Chronic pansinusitis SECONDARY: J34.89 Other specified disorders of nose and nasal sinuses J45.909 Unspecified asthma, uncomplicated G47.30 Sleep apnea, unspecified Z99.89 Dependence on other enabling machines and devices [facility] STAT DESCRIPTION DOCTOR NAME DATE 50001 5155 J1 Nasal/sinus endoscopy, Yolette Govea MD 08/25/2019 surgical with ethmoidectomy; total (anterior and posterior), including sphenoidotomy, with removal of tissue from the sphenoid sinus RT Right side (used to identify procedures performed on the right side of the body) 85664 5155 J1 Nasal/sinus endoscopyJeferson MD, Hilary H 08/25/2019 surgical, with maxillary antrostomy; with removal of tissue from maxillary sinus RT Right side (used to identify procedures performed on the right side of the body) 20951 5155 J1 Nasal/sinus endoscopyJeferson MD, Hilary H 08/25/2019 surgical, with frontal sinus exploration, including removal of tissue from frontal sinus, when performed RT Right side (used to identify procedures performed on the right side of the body) 76957 Anesthesia for RashaunLoyd arrington Jr., DO 08/25/2019 procedures on nose and accessory sinuses; not otherwise specified NOTE: The code number assigned matches the documented diagnosis and / or procedure in the patient's chart. However, the narrative phrase printed from the coding software may appear abbreviated, or result in slightly different terminology. Revised Coded By: Ngoc Campo Revised Date Saved: 08/31/2019 10:48 am Normal [facility] Main OR Intraoperative Recor don 08-29-2019 Main OR Intraoperative Record IntraOp Document Type FT Summary Primary Physician: Yolette Govea MD Finalized Date/Time: 08/29/19 09:29:47 Pt. Name: WALE GREY/Sex: 2000 Male Med Rec #: [id number] Physician: Yolette Govea MD Financial #: [id number] Pt. Type: A Room/Bed: AS38 Admit/Disch: 08/25/19 09:16:00 - 08/25/19 15:30:00 Institution: [...] Role Performed Anesthesiologist of Surgeon - Primary Cabinetmaker Helper - Primary Record Time In 08/25/19 10:37:00 08/25/19 10:37:00 08/25/19 10:37:00 Time Out 08/25/19 13:03:00 08/25/19 13:03:00 08/25/19 13:03:00 Procedure ANTROSTOMY TURBINECTOMY ANTROSTOMY TURBINECTOMY ANTROSTOMY TURBINECTOMY ETHMOIDECTOMY IM(Right) ETHMOIDECTOMY IM(Right) ETHMOIDECTOMY IM(Right) Comments out of room from [id number]. Last Modified By: Patrick RN, Nelly Nguyen RN, Nelly Robison RN 08/25/19 13:05:43 08/25/19 13:05:43 08/25/19 13:05:43 Entry 4 Entry 5 Entry 6 Case Attendee Patrick INFANTE, Nelly Aguilar TRANSIT CLERK, Enzo Tijerina CST, Sheba Segovia Role Performed Cabinetmaker Helper - Primary Scrub - Primary Scrub - Relief Time In 08/25/19 10:37:00 08/25/19 10:37:00 08/25/19 11:40:00 Time Out 08/25/19 13:03:00 08/25/19 13:03:00 08/25/19 12:14:00 Procedure ANTROSTOMY TURBINECTOMY ANTROSTOMY TURBINECTOMY ANTROSTOMY TURBINECTOMY ETHMOIDECTOMY IM(Right) ETHMOIDECTOMY IM(Right) ETHMOIDECTOMY IM(Right) Comments out for lunch at out for lunch at [phone] [phone] Last Modified By: Nelly Nguyen RN, RN, [...] Out Loyd López Jr., DO, Given Participants Yoletet Govea MD, Rehana INFANTE, Patrick Staton RN, [...] and tissue Entry 1 Skin Integrity Intact, Lester, Warm, and Skin Abnormality No Dry Outcomes [...] related to positioning General Comments: safety strap jarad. Kizzy.ARELIS Nguyen Patient Care Devices FT Pre-Care Text: [...] 11:42:00 By Rehana INFANTE, Jomar Morales, Breezy TRANSIT CLERK, Jeff Marcano CST, Jeff Giraldo CST, Enzo [...] L Patient Status Stable Skin. Condition Intact, Lester, Warm, and Dry Airway Maintenance Oxygen in Use? Yes Airway Device Simple Mask Flow Rate 10 L/min Outcomes Met? Yes Last Modified By: Jomar Kimball RN 08/25/19 11:48:09 Post-Care Text: The patient is free from signs and symptoms of injury related to transfer/transport General Comments: handoff report given to pacu nurse. ARELIS Whelanfilemaker developer Administration FT Pre-Care Text: Verifies allergies, administers prescribed medications and solutions, administers prescribed antibiotic therapy and immunizing agents as ordered, evaluates response to medications Administers prescribed medications and solutions Entry 1 Expiration Date Yes Outcomes Met? Yes Verified Last Modified By: Nelly Nguyen RN 08/25/19 10:03:51 Post-Care Text: The patient received appropriate medication(s) safely administered during the perioperative period For [facility] please see scanned medication reconcilliation form for [...] AIR Quantity 1 Aid PLUS LOWER BODY [[id number]][F] Fluid/Pep[place]rell Unit Mistral warming system Setting high/43 degrees Body Site Lower anterior torso Last Modified By: Nelly Nguyen RN 08/25/19 10:05:52 Case Comments Finalized By: Melisa Rg CST Document Signatures Signed By: Nelly Nguyen RN 08/25/19 13:06 ALEXIS Hines RN, Andrea 08/26/19 11:19 Melisa Rg CST 08/29/19 09:29 Normal [facility] Operative Reporton 11-22-201 9 Operative Report [...] Yolette Govea Jr., M.D. aek Dictated: 08/25/2019 #[id number] Typed: 08/26/2019 #[id number] cc: Wiliam Carrillo Jr., M.D. [facility] Comment on above: Result Comment: Elec tronically Signed By: Yolette Govea MD\.br\Date and Time Signed: 08/26/19 09:56 EST Inpatient Patient Summaryon 08-25-2019 Inpatient Patient Summary [facility] Clinical Discharge Instructions PERSON INFORMATION Name: WALE GREY PHYSICIANS Admitting Physician: Yolette Govea MD Attending Physician: Yolette Govea MD PCP: ENZO VASQUES DO Discharge Diagnosis: Chronic pansinusitis Comment: PATIENT EDUCATION INFORMATION Instructions: Post Op Patient Instructions - FT (CUSTOM) Medication Leaflets: Follow up: With: Address: When: Yolette Govea [address] [place] [address] Business (1) In 6 days 08/31/2019 Comments: Call for followup appointment MEDICATION LIST Comment: Normal [facility] Main OR PACU I Recordon 08-06 Main OR PACU I Record PACU Phase I Document Type FT Summary Primary Physician: Yolette Govea MD Finalized Date/Time: 08/25/19 13:39:03 Pt. Name: SHMUEL WALE Morales D.O.B./Sex: 2000 Male Med Rec #: [id number] Physician: Yolette Govea MD Financial #: [id number] Pt. Type: A Room/Bed: [place] [address] Admit/Disch: 08/25/19 09:16:27 - Institution: Case Times [...] By: Jesenia Phan RN 08/25/19 13:39 Normal [facility] Main OR PACU II Recordon Main OR PACU II Record PACU Phase II Document Type FT Summary Primary Physician: Yolette Govea MD Finalized Date/Time: 08/25/19 15:29:24 Pt. Name: WALE GREY/Sex: 2000 Male Med Rec #: [id number] Physician: Yolette Govea MD Financial #: [id number] Pt. Type: A Room/Bed: [place] [address] Admit/Disch: 08/25/19 09:16:27 - Institution: Case Times [...] By: Heavenly Hager RN 08/25/19 15:29 Normal [facility] Main OR Preoperative Recordo n 08-25-2019 Main OR Preoperative Record PreOp Document Type FT Summary Primary Physician: Yolette Govea MD Finalized Date/Time: 08/25/19 11:07:39 Pt. Name: WALE GREY/Sex: 2000 Male Med Rec #: [id number] Physician: Yolette Govea MD Financial #: [id number] Pt. Type: A Room/Bed: [facility]/ Admit/Disch: 08/25/19 09:16:27 - Institution: Case Times [...] Signed By: Nelly Nguyen RN 08/25/19 11:07 [facility] Operative Reporton Operative Report Patient: Ministerio GREY Age: 18 years Sex: Male : 2000 Associated Diagnoses: None Author: Yolette Govea MD Postoperative Information Procedure: RT IG microdebrider assisted MMA with r/o tissue, total ethmoidectomy, frontal sinusotomy, sphenoidotomy with r/o tissue Preoperative Diagnosis: Chronic pansinusitis (USC75-OG J32.4, Working, Medical). Postoperative Diagnosis: Chronic pansinusitis (LMS07-OS J32.4, Discharge, Medical). Performed by: Yolette Govea MD. 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 Specimens Removed: nasal polyp, RT sinus contents, RT sinus sock, RT max sinus tissue, RT sphenoid tissue. Estimated Blood Loss: 100 ml. Medications Complications: None. Normal [facility] Comment on above: Result Comment: Elec tronically Signed By: Yolette Govea MD\.br\Date and Time Signed: 08/25/19 13:21 EST Patient Education - Texton 10-25-2018 Patient Education - Text Normal [facility] Coding Summary.on 08-22-2019 Coding Summary. CODING DATE: 019 FINAL [facility] STATUS: Home (Routine DC) PAYOR: [facility] [place] [employer] DESCRIPTION 5521 Level 1 Imaging without [...] CphT Date Saved: 08/22/2019 11:03 am Normal [facility] Auto Diffon 08-19-2019 Basophils/100 WBC (Bld) 1.4 % Normal 0.0-2.0 [facility] Comment on above: Order Comment: Order Added by Discern Expert. Performed By: #### 2 855256, 1987278, [id number] #### [facility] [address] [place] [address] Basophils/Leukocyte s Auto (Bld) [Pure # fraction] 0.2 E9/L Normal 0.0-0.2 [facility] Comment on above: Order Comment: Order Added by Discern Expert. Performed By: #### 2 334250, 2707696, [id number] #### [facility] [address] [place] [address] Eosinophils/100 WBC (Bld) 1.1 % Normal 0.0-8.0 [facility] Comment on above: Order Comment: Order Added by Discern Expert. Performed By: #### 2 598362, 9607557, [id number] #### [facility] [address] [place] [address] Eosinophils/Leukocy carlos Auto (Bld) [Pure # fraction] 0.1 E9/L Normal 0.0-0.5 [facility] Comment on above: Order Comment: Order Added by Discern Expert. Performed By: #### 2 389875, 3905970, [id number] #### [facility] [address] [place] [address] Lymphocytes/100 WBC (Bld) 21.2 % Normal 14.0-50.0 [facility] Comment on above: Order Comment: Order Added by Discern Expert. Performed By: #### 2 106113, 0391910, [id number] #### [facility] [address] [place] [address] Lymphocytes/Leukocy carlos Auto (Bld) [Pure # fraction] 2.3 E9/L Normal 1.0-4.0 [facility] Comment on above: Order Comment: Order Added by Discern Expert. Performed By: #### 2 672992, 2238644, 16213805 #### [facility] [address] [place] [address] Monocytes/100 WBC (Bld) 5.4 % Normal 4.0-14.0 [facility] Comment on above: Order Comment: Order Added by Discern Expert. Performed By: #### 2 285384, 8459637, [id number] #### [facility] [address] [place] [address] Monocytes/Leukocyte s Auto (Bld) [Pure # fraction] 0.6 E9/L Normal 0.2-1.0 [facility] Comment on above: Order Comment: Order Added by Discern Expert. Performed By: #### 2 015933, 0444709, 53356022 #### [facility] [address] [place] [address] Neutrophils/100 WBC (Bld) 70.9 % Normal 36.0-75.0 [facility] Comment on above: Order Comment: Order Added by Discern Expert. Performed By: #### 2 986410, 4922220, 48264048 #### [facility] [address] [place] [address] Neutrophils/Leukocy carlos Auto (Bld) [Pure # fraction] 7.6 E9/L High 2.0-7.5 [facility] Comment on above: Order Comment: Order Added by Discern Expert. Performed By: #### 2 389489, 7842529, [id number] #### [facility] [address] [place] [address] BUNon 08-19-2019 Urea nitrogen [Mass/Vol] 12 mg/dL Normal 5-21 [facility] Comment on above: Performed By: #### 2 829280, 3123817, 21302851, 0706030, 8678582 #### [facility] [address] [place] [address] CBC w/ Auto Diffon 9 Erythrocyte distribution width (RBC) [Ratio] 14.1 % Normal 10.9-14.2 [facility] Comment on above: Performed By: #### 2 369134, 9993795, 94236002 #### [facility] [address] [place] [address] Hematocrit (Bld) [Volume fraction] 48.4 % Normal 37.7-49.0 [facility] Comment on above: Performed By: #### 2 095431, 2397052, 64480371 #### [facility] [address] [place] [address] Hemoglobin (Bld) [Mass/Vol] 16.2 g/dL Normal 13.5-17.5 [facility] Comment on above: Performed By: #### 2 069941, 9743519, 79906206 #### [facility] [address] [place] [address] MCH (RBC) [Entitic mass] 29.0 pg Normal 27.0-34.0 [facility] Comment on above: Performed By: #### 2 400546, 1535881, 03502379 #### [facility] [address] [place] [address] MCHC (RBC) [Mass/Vol] 33.6 g/dL Normal 31.4-36.0 [facility] Comment on above: Performed By: #### 2 632188, 5448972, 07110872 #### [facility] [address] [place] [address] MCV (RBC) [Entitic vol] 86.5 fL Normal 80.0-100.0 [facility] Comment on above: Performed By: #### 2 103364, 3603674, 55827659 #### [facility] [address] [place] [address] Platelet mean volume (Bld) [Entitic vol] 8.7 fL Normal 6.4-10.8 [facility] Comment on above: Performed By: #### 2 940678, 9534816, 41849301 #### [facility] [address] [place] [address] Platelets (Bld) [#/Vol] 351.0 E9/L Normal 150.0-500.0 [facility] Comment on above: Performed By: #### 2 140994, 9462726, 93468977 #### [facility] [address] [place] [address] RBC (Bld) [#/Vol] 5.6 E12/L Normal 4.3-5.9 [facility] Comment on above: Performed By: #### 2 274284, 6400554, 32630248 #### [facility] [address] [place] [address] WBC corrected for nucl RBC Auto (Bld) [#/Vol] 10.7 E9/L Normal 4.0-11.0 [facility] Comment on above: Performed By: #### 2 738882, 3417432, 60870206 #### [facility] [address] [place] [address] Creatinineon 08-19-2019 Creatinine [Mass/Vol] 0.8 mg/dL Normal 0.5-1.3 [facility] Comment on above: Performed By: #### 2 078918, 5769829, 24542056, 3669757, 7578316 #### [facility] [address] [place] [address] Glucoseon 08-19-2019 Glucose [Mass/Vol] 97 mg/dL Normal 55-199 [facility] Comment on above: Performed By: #### 2 067451, 4835379, 01519173, 8163986, 0815734 #### [facility] [address] [place] [address] Lyteson 08-19-2019 Anion gap [Moles/Vol] 14 mmol/L Normal 6-16 [facility] Comment on above: Performed By: #### 2 318869, 1953149, 59842701, 2696900, 8681881 ####[facility] [address] [place] [address] Chloride [Moles/Vol] 104 mmol/L Normal 101-111 [facility] Comment on above: Performed By: #### 2 428982, 5491639, 37414729, 9393441, 3863166 ####[facility] [address] [place] [address] CO2 [Moles/Vol] 25 mmol/L Normal 21-31 [facility] Comment on above: Performed By: #### 2 372117, 8258126, 86250175, 2581451, 9259159 ####[facility] [address] [place] [address] Potassium [Moles/Vol] 3.5 mmol/L Normal 3.5-5.3 [facility] Comment on above: Performed By: #### 2 008553, 1498700, 88937360, 9645770, 9406233 ####[facility] [address] [place] [address] Sodium [Moles/Vol] 139 mmol/L Normal 135-145 [facility] Comment on above: Performed By: #### 2 546119, 6816497, 46248481, 1665993, 5655494 ####[facility] [address] [place] [address] PT & PTTon 08-19-2019 aPTT Coag (PPP) [Time] 35.7 second(s) Normal 25.1-36.5 [facility] Comment on above: Result Comment: Hepa rin therapeutic range (represented by Anti-Factor Xa activity of 0.2 - 0.4 U/mL) corresponds to PTT of 56.6 - 109.0 sec. Performed By: #### 2 839386, 8470849, 04040765 #### [facility] [address] [place] [address] INR Coag (PPP) [Relative time] 1.0 {INR} [facility] Comment on above: Result Comment: INR results are specifically intended to assess patients stabilized on long-term Anticoagulation therapy suggested INR?s ?Less Intensive Anticoagulation? 2.0 ? 3.0 Conventional Range 3.0 ? 4.5 Performed By: #### 2 856160, 3373302, 13056021 #### [facility] [address] [place] [address] PT Coag (PPP) [Time] 11.6 second(s) Normal 10.2-12.9 [facility] Comment on above: Performed By: #### 2 427963, 7818909, 52050146 #### [facility] [address] [place] [address] XR Chest 2 Viewson 9 XR Chest [...] M.D. Transcribed by: JAZMYNE Technologist: ZHANNA Parr [facility] eGFRon 08-19-2019 GFR/1.73 sq M predicted among blacks MDRD (S/P/Bld) [Vol rate/Area] mL/min/{1.73_m2} Normal >=59 [facility] Comment on above: Order Comment: Order added by Discern Expert. Result Comment: eGFR is race adjusted. AA=. Performed By: #### 2 338773, 1623987, 73099924, 1402152, 9887694 #### [facility] [address] [place] [address] GFR/1.73 sq M predicted among non-blacks MDRD (S/P/Bld) [Vol rate/Area] mL/min/{1.73_m2} Normal >=59 [facility] Comment on above: Order Comment: Order added by Discern Expert. Result Comment: Fabrication Technician niall kidney disease could be indicated at eGFR's of less than 60 mL/min/1.73m2. Kidney failure is indicated at less than 15 mL/min/1.73m2. Performed By: #### 2 271858, 3923340, 51772058, 2172424, 4531681 #### [facility] [address] [place] [address] Coding Summary.on 08-08-2019 Coding Summary. CODING DATE: 019 FINAL [facility] STATUS: Home (Routine DC) PAYOR: [facility] [place] [employer] DESCRIPTION 5522 Level 2 Imaging without [...] CphT Date Saved: 08/08/2019 12:24 pm Normal [facility] CT Maxillofacial w/o Contras ton 08-07-2019 [...] M.D. Transcribed by: JAZMYNE Technologist: YOSEPH Parr [facility] Vital Signs Date Time Vital Sign Value Performing Clinician Facility 07-13-2024 13:18040 Body height 182.9 cm Dominick Barbosa MD Work Phone: [facility] 07-13-2024 13:18-040 Body mass index (BMI) [Ratio] 56.42 kg/m2 Dominick Barbosa MD Work Phone: [facility] 07-13-2024 13:18040 Body weight 188.7 kg Dominick Barbosa MD Work Phone: [facility] 06-03-2024 14:040 Body height 182.25 cm [facility] 06-03-2024 14:050400 Body mass index (BMI) [Ratio] 57.3 kg/m2 [facility] 06-03-2024 14:040 Body weight 190.5 kg [facility] 06-03-2024 14:05-0400 Diastolic blood pressure 91 mm[Hg] [facility] 06-03-2024 14:05-0400 Heart rate 83 /min [facility] 06-03-2024 14:05-0400 Respiratory rate 12 /min [facility] 06-03-2024 14:05-0400 Systolic blood pressure 146 mm[Hg] [facility] 03-09-2024 15:02-0400 Body height 182.9 cm Dominick Barbosa MD Work Phone: [facility] 03-09-2024 15:02-0400 Body mass index (BMI) [Ratio] 56.32 kg/m2 Dominick Barbosa MD Work Phone: [facility] 03-09-2024 15:02-0400 Body weight 188.38 kg Dominick Barbosa MD Work Phone: [facility] 10-06-2023 12:15-0500 Body height 182.25 cm Enzo Ball Other [facility] [employer] Other 10-06-2023 12:15-0500 Body mass index (BMI) [Ratio] 54.62 kg/m2 Enzo Ball Other [facility] [employer] Other 10-06-2023 12:15-0500 Body weight 181.44 kg Enzo Ball Other [facility] [employer] Other 09-02-2023 15:29-0500 Body height 182.9 cm Dominick Barbosa MD Work Phone: [facility] 09-02-2023 15:29-0500 Body mass index (BMI) [Ratio] 54.37 kg/m2 Dominick Barbosa MD Work Phone: [facility] 09-02-2023 15:29-0500 Body weight 181.85 kg Dominick Barbosa MD Work Phone: [facility] 05-27-2023 07:57-0400 Body height 182.88 cm Enzo Vasques Work Phone: [facility] Work Phone: 05-27-2023 07:57-0400 Body mass index (BMI) [Ratio] 55.81 kg/m2 Enzo Vasques Work Phone: [facility] Work Phone: 05-27-2023 07:57-0400 Body surface area Derived from formula 2.89 m2 Enzo Vasques Work Phone: [facility] Work Phone: 05-27-2023 07:57-0400 Body weight 186.66 kg Enzo Vasques Work Phone: [facility] 4100 Work Phone: 05-27-2023 07:57-0400 0 1 Enzo Vasques Work Phone: [facility] 4100 Work Phone: Comment on above: [employer] 05-20-2023 12:20-0400 Body height 182.88 cm Enzo Vasques Work Phone: [facility] 4100 Work Phone: 05-20-2023 12:20-0400 Body mass index (BMI) [Ratio] 56.31 kg/m2 Enzo Vasques Work Phone: [facility] 4100 Work Phone: 05-20-2023 12:20-0400 Body surface area Derived from formula 2.91 m2 Enzo Vasques Work Phone: [facility] 4100 Work Phone: 05-20-2023 12:20-0400 Body weight 188.33 kg Enzo Vasques Work Phone: [facility] Work Phone: 05-15-2023 11:49-0400 Body temperature 96.8 [degF] Dominick Barbosa MD Work Phone: [facility] 05-15-2023 11:49-0400 Diastolic blood pressure 91 mm[Hg] Dominick Barbosa MD Work Phone: [facility] 05-15-2023 11:49-0400 Heart rate 82 /min Dominick Barbosa MD Work Phone: [facility] 05-15-2023 11:49-0400 Respiratory rate 16 /min Dominick Barbosa MD Work Phone: [facility] 05-15-2023 11:49-0400 Systolic blood pressure 139 mm[Hg] Dominick Barbosa MD Work Phone: [facility] 05-15-2023 11:18-0400 Body height 182.8 cm Dominick Barbosa MD Work Phone: [facility] 05-15-2023 11:18-0400 Body mass index (BMI) [Ratio] 55.39 kg/m2 Dominick Barbosa MD Work Phone: [facility] 05-15-2023 11:18-0400 Body weight 185.1 kg Dominick Barbosa MD Work Phone: [facility] 03-18-2023 13:56-0400 Body height 182.88 cm Enzo Vasques Work Phone: MK-Hreqtuyicujhxb-Xr [place]lake Work Phone: 03-18-2023 13:56-0400 Body mass index (BMI) [Ratio] 56.63 kg/m2 Enzo Vasques Work Phone: KU-Zwqfxbcwocxumm-Vf [place] Work Phone: 03-18-2023 13:56-0400 Body surface area Derived from formula 2.91 m2 Enzo Segovia Ball Work Phone: JV-Wzqdmxgpsuutzb-Wj [place] Work Phone: 03-18-2023 13:56-0400 Body weight 189.41 kg Enzo Segovia Ball Work Phone: BX-Tlfvlslydpaoyh-Em [place] Work Phone: 03-18-2023 13:56-0400 0 1 Enzo Segovia Ball Work Phone: EZ-Ybdmvabffvkzvs-Zj [place] Work Phone: Comment on above: [employer] 11-12-2022 16:13-0500 Body height 182.88 cm Enzo Segovia Ball Work Phone: YT-Onzxpidwowyahq-Yt [place] Work Phone: 11-12-2022 16:13-0500 Body mass index (BMI) [Ratio] 56.89 kg/m2 Enzo Segovia Ball Work Phone: RI-Gingttlsfmodwz-Nl [place] Work Phone: 11-12-2022 16:13-0500 Body surface area Derived from formula 2.92 m2 Enzo Segovia Ball Work Phone: EO-Eydsopfbyvrhvq-Qr [place] Work Phone: 11-12-2022 16:13-0500 Body weight 190.29 kg Enzo Segovia Ball Work Phone: RW-Hqbgnbltrnwwub-Gk [place] Work Phone: 11-12-2022 16:13-0500 0 1 Enzo Segovia Ball Work Phone: YY-Umkdpzmwmwdhwl-Rr [place] Work Phone: Comment on above: [employer] Encounters Encounter Date Encounter Type Care Provider Facility Start: 01-11-2025 End: 01-11-2025 ambulatory [facility] Start: 01-02-2025 End: 01-02-2025 ambulatory Ruth Pfeiffer MD Facility: [facility] Start: 09-12-2024 End: 09-12-2024 ambulatory Ruth Pfeiffer MD Facility: [facility] Start: 08-08-2024 End: 08-08-2024 ambulatory [facility] Work Phone: Start: 08-08-2024 End: 08-08-2024 Patient encounter procedure [facility] Work Phone: Start: 07-13-2024 End: 07-13-2024 Office outpatient visit 15 minutes Dominick Barbosa MD Work Phone: [facility] Comment on above: Post-nasal drainage (Primary Dx); Chronic maxillary sinusitis; Nasal congestion Start: 07-13-2024 End: 07-13-2024 ambulatory [facility] Start: 07-04-2024 End: 07-04-2024 ambulatory Ruth Pfeiffer MD Facility: [facility] Start: 06-08-2024 Non-patient / Non-visit [facility] Work Phone: Start: 06-03-2024 Patient encounter status [facility] Start: 06-03-2024 End: 06-03-2024 ambulatory [facility] Work Phone: Start: 06-03-2024 End: 06-03-2024 Encounter for general adult medical examination without abnormal findings [facility] Start: 06-03-2024 End: 06-03-2024 Patient encounter procedure [facility] Work Phone: Start: 03-09-2024 End: 03-09-2024 ambulatory [facility] Start: 03-09-2024 End: 03-09-2024 Office outpatient visit 15 minutes Dominick Barbosa MD Work Phone: [facility] Comment on above: Chronic ethmoidal si nusitis (Primary Dx); Chronic maxillary sinusitis Start: 10-06-2023 End: 10-06-2023 ambulatory Enzo [place] Other [employer] Other Start: 10-06-2023 Office outpatient vi sit 15 minutes Enzo [place] [facility] Start: 09-02-2023 End: 09-02-2023 Office outpatient visit 15 minutes Dominick Barbosa MD Work Phone: [facility] Comment on above: Chronic ethmoidal si nusitis (Primary Dx); Other chronic sinusitis; Chronic sphenoidal sinusitis Start: 06-07-2023 Chart Update Enzo morales Work Phone: [facility]bcdes[facility] 6255 Work Phone: Start: 05-27-[address] Dominick Cerda Facility:[id number] Start: 05-20-2023 Postop follow up vis it related to original px Enzo Luca Vasques Work Phone: [facility]knmmxq[facility] 4101 Work Phone: Start: 05-20-[address] Enzo Vasques Facility:[id number] Start: 05-15-2023 End: 05-15-[address] Dominick Barbosa Facility:[facility] Start: 05-15-2023 AUDIT Enzo morales Work Phone: [facility]dwwvabuaqkqvc[facility] 4[facility] Work Phone: Start: 05-15-2023 End: 05-15-2023 Subsequent hospital visit by physician Dominick Barbosa MD Work Phone: [facility] Comment on above: Chronic ethmoidal si nusitis; Benign neoplasm of middle ear, nasal cavity and accessory sinuses; Chronic sinusitis, unspecified Start: 05-12-[address] Dominick Cerda Facility:[facility] Start: 05-12-2023 Encounter for preprocedural laboratory examination Dr. Dominick Barbosa [facility] Start: 03-18-2023 Office outpatient vi sit 15 minutes Enzo Vasques Work Phone: [facility]xxlvfrvkm[facility] 4063 Work Phone: Start: 03-18-2023 Patient encounter procedure Enzo Vasques Work Phone: ZP-Qrtfttktuxiohi-Uzsp lake Work Phone: Start: 03-18-[address] Dominick Cerda Facility:[id number] Start: 01-07-2023 End: 01-07-2023 ambulatory Enzo Vasques Other [employer] Other Start: 01-07-2023 Telephone encounter Enzo Vasques [facility] Start: 01-06-2023 Office outpatient vi sit 25 minutes Enzo Segovia [place] Work Phone: HJ-Qjlwmsueyofkli-[facility]gym[facility] 8077 Work Phone: Start: 01-06-[address] Dominick Cerda Facility:[id number] Start: 01-05-2023 End: 01-05-2023 ambulatory Enzo Vasques Other [employer] Other Start: 01-05-2023 Office outpatient vi sit [address] [facility] Start: 11-19-2022 End: 11-20-[address] DOCTOR PARISI Facility:H1 Start: 11-12-2022 Office outpatient vi sit 25 minutes Enzo Segovia [place] Work Phone: GN-Olcswnhkhvpnxc-Flwk[facility] 4104 Work Phone: Start: 11-12-2022 Patient encounter procedure Enzo Segovia [place] Work Phone: UZ-Hfisutoglljvue-Hfgv lake Work Phone: Start: 11-12-[address] Dominick Cerda Facility:[id number] Start: 07-29-2022 End: 08-23-[address] ENZO VASQUES Facility:H1 Start: 07-22-2022 End: 07-23-[address] ENZO VASQUES Facility:H1 Start: 06-24-2022 Well child visit Enzo Vasques Other [facility] [employer] Other Start: 03-20-2022 End: 04-25-[address] ENZO VASQUES Facility:H1 Start: 02-18-2022 End: 02-19-[address] ENZO VASQUES Facility:H1 Procedures Date Procedure Procedure Detail Performing Clinician Start: 07-13-2024 Level iv surg pathol ogy gross&microscopic exam Dominick Barbosa MD Work Phone: Start: 03-09-2024 Follow-up visit Follow-up DOMINICK BARBOSA Start: 05-15-2023 [...] 2) Zoste r Vaccines (1 of 2) [facility] Start: 01-11-2025 End: 01-11-2025 Patient encounter procedure 01/11/2025 3:00 PM EDT Office Visit [facility] [address] [place] [address] Dominick Barbosa MD [address] [place], [place] [id number] [facility] Start: 07-13-2024 End: 07-13-2024 Patient encounter procedure 07/13/2024 1:15 PM EDT Office Visit [facility] [address] [place] [address] Dominick Barbosa MD [address] [place] [address] [facility] Start: 06-05-2024 COVID-19 Vaccine ( season) COVID-19 Vaccine ( season) [facility] Start: 06-05-2024 Influenza vaccination U [facility] Start: 03-09-2024 End: 03-09-2024 Patient encounter procedure 03/09/2024 2:45 PM EDT Office Visit [facility] [address] [place] [id number] Dominick Barbosa MD [address] [place] [address] [facility] Start: 09-02-2023 FUV, Provider: Dominick Barbosa, Status: Pen, Time: 2:45 PM FUV, Provider: Dominick Barbosa, Status: Pen, Time: 2:45 PM WY-Yrqnthwpyqewnu-EecxSan[facility] 4100 Work Phone: Start: 09-02-2023 End: 09-02-2023 Patient encounter procedure 09/02/2023 2:45 PM EST Office Visit [facility] [address] [place] [phone] Dominick Barbosa MD [address] [place] [address] [facility] Start: 06-05-2023 COVID-19 Vaccine ( season) COVID-19 Vaccine ( season) [facility] Start: 06-05-2023 Influenza vaccination Influenz a Vaccine (#1) [facility] Start: 05-27-2023 POV, Provider: Dominick Barbosa, Status: Pen, Time: 10:30 AM POV, Provider: Dominick Barbosa, Status: Pen, Time: 10:30 AM RQ-Kdutvnmucuxuqa-Abft [place] Work Phone: Start: 05-20-2023 POV, Provider: Dominick Barbosa, Status: Pen, Time: 12:30 PM POV, Provider: Dominick Barbosa, Status: Pen, Time: 12:30 PM SB-Gwfpdnzgyqskyc-Syua [place] Work Phone: Start: 12-22-2022 DTaP/Tdap/Td Vaccine s (7 - Td or Tdap) DTaP/Tdap/Td Vaccines (7 - Td or Tdap) [facility] Start: 2022 DTaP/Tdap/Td Vaccine s (1 - Tdap) DTaP/Tdap/Td Vaccines (1 - Tdap) [facility] Start: 03-07-2021 COVID-19 Vaccine (2 - Booster for Isaias series) COVID-19 Vaccine (2 - Booster for Isaias series) [facility] Start: 2018 Hepatitis C screening Hepatitis C [facility] Start: 2015 HPV Vaccines (1 - Ma le 3-dose series) HPV Vaccines (1 - Male 3-dose series) [facility] Start: 2011 HPV Vaccines (1 - Ma le 2-dose series) HPV Vaccines (1 - Male 2-dose series) [facility] Start: 11-28-2004 Varicella vaccination Varicell a Vaccines (2 of 2 - 2-dose childhood series) [facility] Start: 2001 MMR Vaccines (1 of 1 - Standard series) MMR Vaccines (1 of 1 - Standard series) [facility] Start: 2001 Varicella vaccination Varicell a Vaccines (1 of 2 - 2-dose childhood series) [facility] Start: 03-23-2001 COVID-19 Vaccine (#1) COVID-19 Vacci ne (#1) [facility] Start: 2000 Hepatitis B Vaccines (1 of 3 - 3-dose series) Hepatitis B Vaccines (1 of 3 - 3-dose series) [facility] Start: 2000 HIV screening HIV Screening [facility] Start: 2000 Lipid panel Lipid Panel [facility] Start: 2000 Yearly Adult Physical Yearly Adult P hysical [facility] Comprehensive metabo lic 2000 panel - Serum or Plasma [facility] Patient Education Low back pain in adults [facility] Work Phone: [facility] Immunizations Immunization Date Immunization Notes Care Provider Fa cility 09-23-2001 varicella virus vaccine Dominick Barbosa MD Work Phone: [facility] Work Phone: Payers Date Payer Category Payer [employer] Care [facility] [id number] 2022 Unknown 2022 Unknown [id number] 2019 Unknown [id number] 2000 Unknown [id number] 2.16.840.1.524616.3.579.2. 593 2000 Unknown [id number] 2.16840.1.508764.3.579.2. 593 2000 Unknown [id number] 2.16840.1.757884.3.579.2. 593 2000 Unknown [id number] 2.16.840.1.756559.3.579.2. 593 2000 Unknown [id number] 2.16.840.1.138800.3.579.2. 593 2000 Unknown [id number] 2.16.840.1.232031.3.579.2. 356 2000 Unknown [id number] 2.16.840.1.385905.3.579.2. 356 2000 Unknown [id number] 2.16.840.1.109163.3.579.2. 356 2000 Unknown [id number] 2.16.840.1.162836.3.579.2. 356 2000 Unknown [id number] 2.16.840.1.654475.3.579.2. 356 2000 Unknown [id number] 2.16.840.1.678702.3.579.2. 356 2000 Unknown [id number] 2.16.840.1.889030.3.579.2. 356 2000 Unknown [id number] 2.16.840.1.859282.3.579.2. 196 2000 Unknown [id number] 2.16.840.1.206563.3.579.2. 196 2000 Unknown [id number] 2.16.840.1.083018.3.579.2. 196 2000 Unknown [id number] 2.16.840.1.574341.3.579.2. 1244 2000 Unknown [id number] 2.16.840.1.384103.3.579.2. 1244 2000 Unknown [id number] 2.16.840.1.879988.3.579.2. 1244 Social History Date Type Detail Facility Start: 09-02-2023 End: 07-13-2024 Never a smoker Never a smoker HF-Ulnkjjnndeokej-Lk stla ke Work Phone: Start: 09-02-2023 End: 07-13-2024 Sex Assigned At [place] [facility] Other Tobacco smoking status NYIS Tobacco smoking consumption unknown [facility] Work Phone: Start: 2000 [facility] Start: 09-02-2023 Tobacco smoking status NHIS Never smoked tobacco [facility] Work Phone: Start: 09-02-2023 Tobacco use and exposure Smokeless tobacco non-user [facility] Work Phone: Start: 08-23-2023 End: 07-13-2024 Exposure to SARS-CoV-2 (event) Not sure [facility] Start: 2000 Sex Assigned At Male F [facility] Clinical Notes 09-04-2020 to 07-13-2024 Dominick [...] procedure below.) SINONASAL ENDOSCOPY WITH BIOPSY (CPT 45771-P): Due to the patient's nasal cavity / [...] Dominick Barbosa MD documented in this encounter [facility] Work Phone: 03-09-2024 History of Present illness [...] (Please see procedure below.) SINONASAL ENDOSCOPY (CPT 74210): To better evaluate the patient's symptoms, sinonasal [...] Dominick Barbosa MD. documented in this encounter [facility] Work Phone: 10-06-2023 Evaluation note Encounter Date [...] index [BMI] 50.0-59.9, adult (ICD-10 - Z68.43) [employer] Other 11-29-2023 History of Present illness Narrative* [...] (Please see procedure below.) SINONASAL ENDOSCOPY (CPT 95482): To better evaluate the patient's symptoms, sinonasal [...] free to contact my office by calling [phone] with any questions. Signature: Scribe Attestation By signing my name below, I Reina Teehn , Tana attest that this documentation has been prepared under the direction and in the presence of Agustina Barbosa MD. documented in this [facility] Work Phone: 1(884) 104-357908-11-2023 NotePost Operative Note: PreOp Diagnosis: Right sinonasal inverted papilloma, chronic sinusitis Post-Procedure Diagnosis: Same Procedure: 1. Right nasal endoscopy with total ethmoidectomy including sphenoidotomy with tissue removal CPT 30243-W-43 2. Right nasal endoscopy with frontal sinusotomy CPT 82882-N 3. Right maxillary endoscopy with tissue removal 80922-N 4. Extracranial CT image guidance CPT 73481 Surgeon: Familia Resident/Fellow/Other Customs Consultant: None Anesthesia: GET Estimated Blood Loss (mL): [...] middle turbinate was resected (more content not included)...[facility] 05-15-2023 Miscellaneous Notes* Op Note - Dominick Barbosa MD - 05/15/2023 4:37 PM EDT Post Operative Note: PreOp Diagnosis: Right sinonasal inverted papilloma, chronic sinusitis Post-Procedure Diagnosis: Same Procedure: 1. Right nasal endoscopy with total ethmoidectomy including sphenoidotomy with tissue removal CPT 55177-P-48 2. Right nasal endoscopy with frontal sinusotomy CPT 89673-S 3. Right maxillary endoscopy with tissue removal 08154-O 4. Extracranial CT image guidance CPT 65478 Surgeon: Familia Resident/Fellow/Other Customs Consultant: None Anesthesia: GET Estimated Blood Loss (mL): [...] 17:00 by Dominick Barbosa) documented in this [facility] Work Phone: 1(178) 466-696608-11-2023 Note* Op Note - Dominick Barbosa MD - 05/15/2023 4:37 PM EDT Post Operative Note: PreOp Diagnosis: Right sinonasal inverted papilloma, chronic sinusitis Post-Procedure Diagnosis: Same Procedure: 1. Right nasal endoscopy with total ethmoidectomy including sphenoidotomy with tissue removal CPT 99195-Q-23 2. Right nasal endoscopy with frontal sinusotomy CPT 84443-N 3. Right maxillary endoscopy with tissue removal 95227-V 4. Extracranial CT image guidance CPT 90853 Surgeon: Familia Resident/Fellow/Other Customs Consultant: None Anesthesia: GET Estimated Blood Loss (mL): [...] Last Updated: 15-May-2023 17:00 by Dominick Barbosa) [facility] Work Phone: 1(789) 618-825008-11-2023 History of Present illness Narrative* Wale presents for his first postoperative visit following right-sided sinus surgery in 05/15/23. * Following his surgery he has done well. He has been having some headaches that are controlled with Tylenol. His breathing has been significantly improved. He is rinsing several times per day. He denies significant nasal drainage. XA-Qdrvunhfmowyzz-XrtybueSan[facility] 4100 Work Phone: 1(103) [phone] NoteHistory of Present Illness: History Present Illness: [...] Completion Last Updated: 15-May-2023 11:51 by Dominick Barbosa)[facility]08-11-2023 History and physical note* Dominick Barbosa MD [...] Last Updated: 15-May-2023 11:51 by Dominick Barbosa) [facility] Work Phone: 1([phone]) 253-224308-11-2023 History and physical note* Dominick Barbosa MD [...] 11:51 by Dominick Barbosa) [facility] Work Phone: 1(763) 156-775104-05-2023 Evaluation note* Encounter Date Diagnosis Assessment Notes Treatment Notes Treatment Clinical Notes Jan, Inverted papilloma of nasal cavity (ICD-10 - D14.0) [employer] Other 04-04-2023 Chief complaint Narrative - Reported* [...] 5. Obstructive sleep apnea on positive pressure [facility] [address]645 Work Phone: 1([phone]) [phone] History of Present illness Narrative* Reason for visit: * WALE GREY patient presents since last being seen 01/06/23. * Wale presents for routine follow-up. He is interested in going forward with his inverted papillomaresection and would like to schedule it as soon as there is availability. [facility] Work Phone: 1([phone]) 345-735104-04-2023 History of Present illness Narrative* Reason for visit: * WALE GREY patient presents since last being seen 01/06/23. * Wale presents for routine follow-up. 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 [facility] [address]642 Work Phone: [phone]) 107-954604-03-2023 Evaluation note* Encounter Date Diagnosis Assessment Notes [...] for congestion, Tylenol for pain and fever. [employer] Other 12-01-2020 History of Present illness Narrative* [...] and is using flonase only as needed. AA-Dgkzslqxuclpan-Epujexxz Work Phone: 1(876) 720-411612-01-2020 History of Present illness Narrative* Reason for [...] well outside of some nasal breathing issues. CN-Noyimhinqspgzb-MzzhycpSt[facility] 4100 Work Phone: Evaluation note* Diagnosis Chronic ethmoidal sinusitis Benign neoplasm of middle ear, nasal cavity and accessory sinuses Benign neoplasm of nasal cavities, middle ear, and accessory sinuses Chronic sinusitis, unspecified documented in this encounter [facility] Work Phone: Evaluation note* Diagnosis Chronic ethmoidal sinusitis- Primary Other chronic sinusitis Chronic sphenoidal sinusitis documented in this encounter [facility] Work Phone: Evaluation note* Diagnosis Chronic ethmoidal sinusitis- Primary Chronic maxillary sinusitis documented in this encounter [facility] Work Phone: Evaluation note* Diagnosis Onset Date Resolution Status Bulging lumbar disc acute Elevated BP without diagnosis of hypertension acute Low back pain acute Obesity acute Wellness examination acute [facility] Work Phone: Evaluation note* Diagnosis Post-nasal drainage- Primary Other diseases of nasal cavity and sinuses Chronic maxillary sinusitis Nasal congestion Other diseases of nasal cavity and sinuses documented in this encounter [facility] Work Phone: Evaluation note* Diagnosis Onset Date Resolution Status Bulging lumbar disc acute Elevated BP without diagnosis of hypertension acute Low back pain acute Obesity acute Wellness examination acute IFG (impaired fasting glucose) acute Acute sinusitis noneactive [facility] Work Phone: History general Narrative - [...] ethmoidectomy 08/25/2019 Hospitalization History see surgical history [employer] Other History of Present illness Narrative* Wale [...] 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 WD-Aeftvogtawcoeu-OtycrmhSt. [facility] 4100 Work Phone: Summary Purpose [...] Complaint and Reason for Visit Chief Complaint [facility] Reason for Visit Bulging lumbar disc Elevated BP without diagnosis of hypertension Low back pain Obesity Wellness examination Chief Complaint [facility] [phone] sinus infection Reason for Visit Bulging lumbar [...] section and content) DATE CREATED AUTHOR 03/06/2020 [facility] DATE CREATED AUTHOR AUTHOR'S ORGANIZ ATION 11/24/2022 [facility] DATE CREATED AUTHOR AUTHOR'S ORGANIZ ATION 05/28/2023 [facility] [employer] DATE CREATED AUTHOR AUTHOR'S ORGANIZ ATION 06/05/2023 [facility] DATE CREATED AUTHOR AUTHOR'S ORGANIZ ATION 01/08/2025 [facility] DATE CREATED AUTHOR AUTHOR'S ORGANIZ ATION 01/13/2025 [facility] REASON FOR VISIT (unrecogniz ed section and content) Reason Comments Other Right endoscopic sin us surgery with image guidance, right endoscopic medial maxillectomy, septoplasty Reason Comments Follow-up Care Teams (unrecognized sec tion and content) Restaurant Assistant Relationship Specialty Start Date End Date Enzo Vasques DO PCP - General 09/21/19 Restaurant Assistant Relationship Specialty Start Date End Date Enzo Vasques PCP - General 09/21/19 Restaurant Assistant Relationship Specialty Start Date End Date Enzo Vasques PCP - General 09/21/19 Cristiana Triplett APRN-[employer]HETER BUILDER [address] [place] [address] PCP - Cyndie ENCISO PCP 09/04/23 Team Status: Active Member Role Status Dates Enzo Vasques DO Primary Care Provider Active Team Status: Inactive Member Role Status Dates Enzo Vasques DO Primary Care Provide r, Attending Provider Active Start: June 03, 2024 End: June 03, 2024 Restaurant Assistant Relationship Specialty Start Date End Date Enzo Vasques DO PCP General 09/21/19 Team Status: Active Member Role [...] BE BASED ON THE PRIMARY CLINICAL RECORDS. [facility] [employer] [facility] provides no warranty or guarantee of the accuracy or completeness of information in this document.
[2025-01-16 07:04] LABS: Glucometer 141 mg/dL (74-106)
[2025-01-16 07:14] VITALS: BP 153/98; PULSE 95; TEMP 36.1; O2SAT 97
[2025-01-16 07:57] VITALS: BP 173/77; BP 174/76; PULSE 100; PULSE 82; O2SAT 96; O2SAT 97
[2025-01-16] MEDS: BUPIVACAINE HCL 0.25% PF 25 MG/10 ML VIAL 8 ML INJ (07:58)
[2025-01-16] MEDS: LIDOCAINE HCL 2% 400 MG/20 ML MDV INJ (07:58)
--- NOTE | 2025-01-16 08:01 | W.PM.PROCNOT ---
Date of procedure: 01/16/25 Pre-op diagnosis: Pain due to lumbar spondylosis without myelopathy Post-op diagnosis: same as pre-op Procedure: Procedure: Bilateral L4-5, L5-S1 medial branch block Medications: Bupivacaine 0.25% 6cc The patient was seen and examined in the preoperative holding area.? An informed consent was obtained and placed on the chart.? The patient was brought to the medical procedure unit and placed in the prone position.? A timeout was completed verifying correct patient, procedure site, positioning, plan, and special equipment.? Using aseptic technique, the needle was placed at left L4. Under direct fluoroscopic visualization a Quincke-tipped spinal needle was advanced to the junction of the superior articulating process with the transverse process at the designated medial branch segment.? Preceded by negative aspiration, the above-mentioned injectate was placed in 1 mL aliquots.? The procedure was repeated at left L5, S1.? The needle was removed and insertion site was covered. The same procedure, at the same levels, was completed on the right side. The patient was taken to the postprocedural recovery area and monitored for an appropriate length of time before found suitable for discharge in the company of a responsible adult. Anesthesia: Local Surgeon: Ruth Pfeiffer Pathology: none sent Condition: stable Disposition: no change
== END 2025-01-16 08:04 | disposition home or self-care (01) ==
LOC: SURGOUT 06:54
PROVIDERS: Family Provider Internal Medicine; PCP Internal Medicine; Visit Provider Anesthesiology
DX: M47.816 Spondylosis without myelopathy or radiculopathy, lumbar region (principal); M54.50 Low back pain, unspecified; E11.8 Type 2 diabetes mellitus with unspecified complications; Z79.84 Long term (current) use of oral hypoglycemic drugs
CPT/HCPCS: 36415; 64493; 64494; 82948; J0665

== ENCOUNTER 2025-01-25 15:01 | Outpatient (OUT) | payer BC, SELFPAY ==
--- NOTE | 2025-01-25 15:27 | P.CN_ITS ---
Consult Note: HPI Data of Consult Patient: known to practice within the last 3 years Requesting Physician: Shaneka Pena NP Primary Care Provider: Enzo Vasques DO Family Provider: Enzo Vasques DO Consult Narrative Reason for consult: low back, left leg pain Narrative: 24yom who presents for evaluation. 2 year history of low back, left leg pain. previous mri shows multilevel disc herniation and ddd. pain today 6/10 increasing to 10/10 at the most. Pain increased with standing, walking, lifting, housework, bending, and activity. pain improved with sleep and sitting. utilizes flexeril 10mg TID PRN pain/spasms. recently underwent bilateral L4-5 L5-S1 MBB #1 and #2 with >80% improvement in pain and functional ability while anesthetized. preop pain up to 10/10 post op pain 0-2/10. 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 - Personal history of other benign neoplasm (ICD-10) Sleep apnea ?G47.30 - Sleep apnea, unspecified (ICD-10) Asthma ?J45.909 - Unspecified asthma, uncomplicated (ICD-10) Pre-diabetes ?R73.03 - Prediabetes (ICD-10) Surgical History (Updated 09/07/24 @ 08:22 by Holly Campbell RN) History of sinus surgery ?Z98.890 - Other specified postprocedural states (ICD-10) Meds Home Medications and Allergies Home Medications ?Medication ?Instructions ?Recorded ?Confirmed ?Type metformin 850 mg tablet 850 mg PO DAILY 07/04/24 01/16/25 History baclofen 10 mg tablet 10 mg PO BID 07/28/24 01/16/25 History meloxicam 7.5 mg tablet 7.5 mg PO BID 07/28/24 01/16/25 History cyclobenzaprine 10 mg tablet 10 mg PO TID PRN muscle spasm #90 12/22/24 01/16/25 Rx tabs gabapentin 300 mg capsule 300 mg PO .qhs #30 caps 12/22/24 01/16/25 Rx amlodipine 5 mg tablet mg 01/10/25 History Allergies Allergy/AdvReac Type Severity Reaction Status Date / Time No Known Drug Allergies Allergy Verified 01/16/25 07:12 Exam Constitutional Vital Signs, click to edit/add: BP elevated, denies chest pain headache and SOB Documenting provider has reviewed patient's vital signs: yes Common normals: no apparent distress, oriented x3, healthy appearing, alert and well nourished General appearance: cooperative HENMT Common normals: normocephalic, hearing grossly normal bilaterally and moist oral mucous membranes Head and scalp: normocephalic Eye Common normals: PERRL Pupil: PERRL Neck & C-Spine Common normals: full ROM General: normal visual inspection Chest Common normals: inspection of chest normal Respiratory Common normals: normal respiratory effort, no retractions and no use of accessory muscles Back & Pelvis Lumbar spine/lower back: ROM limited, pain with ROM and lumbar spinal tenderness Lumbar spinal tenderness location: L4 and L5 Sacroiliac joints: SI joints normal Other: positive facet loading Neuro Common normals: oriented x3, CN's II-XII intact bilaterally, moves all extremities, no focal motor deficits, no sensory deficits noted and deep tendon reflexes 2+ bilaterally Sensorium/orientation: alert Motor exam: strength 5/5 throughout and no movement abnormalities noted Psych Common normals: mental status grossly normal, thought process normal, cooperative, affect normal, speech normal and activity/motor behavior normal Speech: normal speech Thought process: normal thought process Results Additional Findings Additional findings: If on a controlled substance or opioids, I have checked an [place] report on this patient and there are no aberrancies noted in the prescribing history.??If on a controlled substance or opioid a drug screen was completed and reviewed within the last year, and if there has not been a drug screen completed we ordered one today to monitor higher risk, state monitored pain medication use. As part of providing excellent, safe, comprehensive care, the following was completed at our patient's visit: 1. A medication reconciliation and review to ensure accurate knowledge of current/active medications, including asking our patients to inform us about any [id number] medications or herbal remedies/nutritional supplements/alternative remedies. 2. A review to specifically ensure our patients have had annual screening for screening for depression, screening for tobacco use, and screening for unhealthy alcohol use. For concerning screenings had a discussion with the patient, provided patient education, and recommended follow-up with primary care provider when appropriate. If patient noted with a risk of falling, they received education on strength, gait, and balance training to prevent future risk of falling. Portions of this note may have been carried over from the previous visit and updated as appropriate. Please note this office utilizes paper charting in addition to the electronic medical record. A list of current medications, vitals, and PMH is available there as the clinical staff outside of myself do not have access to GI Track charting during the clinic day operations. As part of providing quality comprehensive care the current medications, vitals, and PMH were reviewed in the paper chart. Assessment and Plan Assessment and Plan (1) Lumbar spondylosis: Assessment and Plan: The patient has had over 3 months of moderate to severe low back pain with functional impairment and inadequate response to conservative care including NSAIDS (unless there are contraindication such as concurrent blood thinners), m ultiple oral or topical pain medications, and home exercise program/physical therapy.? Patient has completed >6 weeks of guided home exercise program and/or formal physical therapy program without relief of their symptoms.? The Oswestry Disability Index was completed, and the patient scored a 24%? The patient noted the following:?? moderate to severe pain with standing, walking, twisting, lifting, sleep, social life and travel We discussed the risks and benefits of the procedure with the patient, and we are NOT planning on using sedation as outlined in the guidelines from Medicare unless there is a documented reason that sedation would be strongly recommended.??The procedure will be completed with fluoroscopic guidance.? (2) Lumbar stenosis with neurogenic claudication: (3) Lumbar disc displacement without myelopathy: (4) Lumbar radiculopathy: (5) Myalgia: Plan bilateral L4-5 L5-S1 facet medial branch RFA for axial facet mediated low back pain continue cyclobenzaprine 10mg TID PRN pain/spasms continue gabapentin 300mg HS declining NS consultation at this time f/u 1 month after RFA complete
== END 2025-01-25 15:02 | disposition home or self-care (01) ==
LOC: PM 15:01
PROVIDERS: Family Provider Internal Medicine; PCP Internal Medicine; Visit Provider Nurse Practitioner
DX: M47.816 Spondylosis without myelopathy or radiculopathy, lumbar region (principal); M48.062 Spinal stenosis, lumbar region with neurogenic claudication; M51.26 Other intervertebral disc displacement, lumbar region; M54.16 Radiculopathy, lumbar region; M79.10 Myalgia, unspecified site
CPT/HCPCS: G0463

== ENCOUNTER 2025-02-13 07:51 | Day surgery (SDC) | payer BC, SELFPAY ==
--- OUTSIDE RECORDS SUMMARY | 2025-02-13 08:08 | XMS_ITS | CCD ---
Author Organization [facility] CliniSyne Care Team Providers Care Special Education Paraprofessional Name Role Phone Virginia Enzo Segovia Unavailable [...] Provider Enzo Vasques DO Primary Care Provider [place] POST OFFICE CLERK-RUBBER AND PLASTICS WORKER, Cristiana Jose Unavailable [phone] Enzo Vasques DO Primary Care Provider Kentrell HUBBARD, Ruth Durán Attending Unavailable Kentrell HUBBARD, Andanita Durán Attending Unavailable Kentrell HUBBARD, Ruth Durán Attending Unavailable Kentrell HUBBARD, Andanita Durán Attending Unavailable DOMINICK BARBOSA Attending Unavailable ENZO VASQUES Primary Care Unavailable DOMINICK BARBOSA Attending Unavailable ENZO VASQUES Primary Care Unavailable DOMINICK BARBOSA Attending Unavailable ENZO VASQUES Primary Care Unavailable Allergies Allergy Classification Reported Allergen(s) Allergy Type Date of Onset Reaction(s) Facility (8 sources) bee pollen Allergy to substance (finding) -Otolaryngolog [facility] Work Phone: (1 source) patient allergy list reviewed by nurse or physicia Propensity to adverse reactions 6 Comment:Done Mobile Safe Case Other Medications Current Medications Medication Drug Class(es) Dates Sig (Normalized) Sig (Original) amLODIPine 5 mg oral tablet (2 sources) Dihydropyridine Calcium Channel Sharon Start: 12-20-2024 take 1 tablet by mouth once daily Amlodipine 5 mg tablet Active 0 .ROUTE .COMPLEX December 20, 2024 7:06am TAKE 1 TABLET BY MOUTH EVERY DAY Start: 09-14-2024 End: 12-20-2024 take 1 tablet by mouth once daily Amlodipine (Norvasc) 5 mg tablet Discontinued 5 MG PO Daily September 14, 2024 1:00am December 20, 2024 7:06am amoxicillin 875 mg / clavulanate 125 mg [...] Start : 12-Nov-2022 End : 18-Mar-2023 Complete cyclobenzaprine hydrochloride 10 mg oral tablet (1 source) Muscle Relaxant Start: 01-16-2025 take 1 tablet by mouth three times daily as needed Cyclobenzaprine 10 mg tablet Active 10 MG PO Three times daily as needed January 16, 2025 12:00am gabapentin 300 mg oral capsule (1 source) Anti-epileptic Agent Start: 01-16-2025 take 1 capsule by mouth once daily at bedtime Gabapentin 300 mg capsule Active 300 MG PO Daily at bedtime January 16, 2025 12:00am metFORMIN hydrochloride 850 mg oral tablet (6 sources) Biguanide Start: 06-16-2024 End: 06-17-2024 take 1 tablet by mouth in the morning metFORMIN (Glucophage) 850 mg tablet Take 1 tablet (850 mg) by mouth early in the morning.. 06/17/2024 Active mometasone furoate, bulk, 100 % powder (4 sources) Start: 09-03-2023 mometasone furoate, bulk, 100 % powder Indications: Other chronic sinusitis Compound 2 mg capsule to be added to sinus rinse twice daily. 180 g 3 09/03/2023 Active telmisartan 20 mg oral tablet (1 source) Angiotensin 2 Receptor Sharon Start: 01-16-2025 take 1 tablet by mouth once daily Telmisartan 20 mg tablet Active 20 MG PO Daily January 16, 2025 12:00am Completed/Discontinued Medications Medication Drug Class(es) Dates Sig [...] Ordered: 25-Aug-2022 DO Start : 25-Aug-2022 Complete cefuroxime 500 mg oral tablet (2 sources) Cephalosporin Antibacterial Start: 08-08-2024 End: 01-16-2025 take 1 tablet by mouth twice daily Cefuroxime Axetil 500 mg tablet Discontinued 500 MG PO Twice daily 17 04August 08, 2024 1:00am January 16, 2025 4:15pm nabumetone 750 mg oral tablet (8 sources) Nonsteroidal Anti-inflammatory Drug Start: 06-03-2024 End: 09-14-2024 take 1 tablet by mouth twice daily Nabumetone 750 mg tablet Discontinued 750 MG PO Twice daily June 03, 2024 12:00am September 14, 2024 5:07pm Start: 06-24-2022 take 1 tablet by edelmira th twice daily at mealtime Nabumetone 750 MG Oral Tablet TAKE 1 TABLET BY MOUTH TWICE A DAY WITH FOOD Quantity: 30 Refills: 0 Ordered: 24-Jun-2022 DO Start : 24-Jun-2022 Complete predniSONE 20 mg oral tablet (2 sources) Start: 02-18-2022 predniSONE 20 MG Oral Tablet TAKE 1 TAB THREE TIMES DAILY W/ FOOD X 3 DAYS THEN TWICE A DAY W/ FOOD X 2 DAYS THEN W/ FOOD X 3 DAY Quantity: 18 Refills: 0 Ordered: 18-Feb-2022 DO Start : 18-Feb-2022 Complete Semaglutide (3 sources) Start: 09-14-2024 End: 01-16-2025 Semaglutide (Ozempic) 0.25 m g or 0.5 mg (2 mg/3 mL) pen injector Discontinued 0.25 MG SUBCUT every week 1.472 September 14, 2024 1:00am January 16, 2025 4:17pm for 4 weeks Start: 06-09-2024 End: 06-16-2024 Semaglutide (Ozempic) 0.25 m g or 0.5 mg (2 mg/3 mL) pen injector Discontinued 0.25 MG SUBCUT every week 12 30June 09, 2024 12:00am June 16, 2024 10:01pm for 4 weeks Start: 06-09-2024 End: 06-16-2024 Semaglutide (Ozempic) 0.25 m g or 0.5 mg (2 mg/3 mL) pen [...] Onset: 06-17-2013 Chronic Diabetes mellitus without complication (5 sources) Hyperglycemia; Translations: [Hyperglycemia, unspecified] 06-08-2024 Episodic Essential hypertension (2 sources) Hypertensive disorder; Translations: [Essential (primary) hypertension] 01-14-2025 Chronic Immunizations and screening for infectious disease [...] cavity and accessory sinuses] 05-15-2023 Episodic Other and unspecified benign neoplasm (1 source) Benign neoplasm of sphenoidal sinus; Translations: [Benign neoplasm of middle ear, nasal cavity and accessory sinuses] 01-25-2025 Episodic Other circulatory disease (2 sources) Elevated [...] Chronic Other nutritional; endocrine; and metabolic disorders (4 sources) Obesity; Translations: [Obesity, unspecified] Onset: 06-17-2013 06-03-2024 Chronic Other nutritional; endocrine; and metabolic disorders (1 source) Morbid obesity; Translations: [Morbid (severe) obesity due to excess calories] Chronic Other nutritional; endocrine; and metabolic disorders (3 sources) Obesity, unspecified; Translations: [Obesity, unspecified] 06-03-2024 [...] Spondylosis; intervertebral disc disorders; other back problems (6 sources) Other intervertebral disc degeneration, lumbosacral region; [...] Translations: [ABNORMAL POSTURE] Onset: 03-25-2022 Episodic Unclassified (4 sources) Onset: 09-02-2023 Resolved: 01-11-2025 09-02-2023 Viral infection (1 source) COVID-19 Results Test Name Value Interpretation Reference Range Facility Surgical pathology studyOrde red By: Claudio Ireland on 01-18-2025 Laboratory comment Pasquale (Report) a6cqwCJjAODrt9ssRIVsiXWfR zEwMzNcZnRuYmpcdWMxIHtccn AeUUxru6ZjM2EgXmIeFMeffnH xOTZtXmneyjytHTJxSXT4ozSa LDOeZGlfIUTaXTvzSd1oeKWno XceBuIdUSYff7dodhDADGsaER MTLHr0x5ysORKrNjF3dSPvLYu mE8qficHskFLmG5Udr1OfSAr5 qG22CRDqhH1itUHpWTmlrvFqN qM2HEerBNElWoI5RCDvjPYmNX JmJ2rhCSSiNYldUKAaSYizyCS eUPQ4xThor2V0pGHfxTGlwBkd ZzSgYiRpNvFUq8WmMGe7dLeqW 8GzZWAkLiT5zHPoXRMdVVoeKV LuEKAwuwW3hQ12NNekqqV9oCE rx0Yib57sv657nY3psMIwHQC9 XZNtCGVeoDQmHGBvZHF9JMEog VKeB6udMbNahLYtP7HxAwNqqN FxN5FnRcZmoPFdY0UeXnGqpTZ tFOOlxCN8QYakg562FTG4TtWd VC6tJ8Qqy2Z4xE8ozZCfVCYmo UTuVvCsXREjka7iaIXfNZhlg5 MuZSS8egI7mNVzxSSzHRHvHR3 2Melsd5ZnEohcTCR4DADnwwQw i3Hep2lcNjYaywCaX8ktW4SxB ABpBQTqJLYlJcTyaeJpm0Lzq1 SvlYWtaEp0a6uaRVYhFFCrnFy sz1kfIPH8SFAfO0H7xPEhq2be CFysRDFwjCW4lfS3NYnlMYSen mP6jvQ6JEnqKISowEZ8efX6YJ xmDLHtYrX1aiV0ODraQJUtXSZ 3WnCeDQVar8FonobsZyAks8Sk nQQzSInsM48dv523PANzttVhQ 1xwbGFpblxwbGFpblxmMFxmcz H4TSMxQSHtYCoiIUXuYLRiNiB cbGFuZzEwMzNcaGljaFxmMVxk GtPiFBMuHZqhK1qfAwOcExCgX WOMfVO0dWJzs9zkrzR6pWLeAN 2qGRWeuMVluhZqt5I2HLV4hLI bnX6ovVDiNXVweAZgcgOvtv42 bLMzrZI5FSGnGDChfRAjjW8gY MQmYFBHdA3xzZGBvcSrnuJfYQ KwhNlkau7BaTDqgn2glKOrC5T ydGlmaWVzIHRoYXQgdGhleSBo ODMiFQBsenoda1FwPBYmxVArE 4KkSO7sOAPghb23 [facility] Work Phone: Pathology report Cancer Narrative Surgical Pathology Case: [id number] Authorizing Provider: Dominick Barbosa MD Collected: 01/11/2025 1620 Ordering Location: [facility] Received: 01/11/2025 1620 Pathologist: Claudio Ireland MD Specimen: SINUS MASS RIGHT [facility] Work Phone: Pathology report final diagnosis Narrative k1yydZNyWIVdeXLzTUSuJRgva vCvSBDfmKCkL4BqdrhmJVzeRY 4bBX2snKyfqLInbBCtJROzFwZ hm1iyz708qYWop2jnHGAXfhdw eQd6zWzmI28nw8B3YpfqK5huY TFeSKwzJWRvKHtvmKTcWNf0UV BhcGVydzEyMjQwXHBhcGVyaDE 0VGFxHX7cjwfuADhfEAteYLDt trL0NLOydDVpB9LdYIMcKB9gy onwDLW8WGmyKTPeQQX8DaDxEZ Lgd7Rbypt7FvRgvVo2s2bcPGS hTYYzrEget6ebNKL6LNWkzQWd F5tvbI5lDWMeWJ6xnmykp9xjL WlzHIpgBKPvsUO0riY0JWEnpR VyP9TlqC3hTCJtVOOfbwDfxFr ewJ5rNxLaUxhvClVgYsxjyIZs o5simWDseHKapfeidDYzUZVoI NAboQIyN0pce07pu0JvIHCmeP nklV0gGVhxlY16OXI0BLTzfEx gFWeypO21x6p4zH2yFAJxUVdb KqpoiV8ljV7blROlkZ5xoqGvF IdykY5uhRPnRGJkcqgtutLmv6 qnDN9wCZizP5uwA8LiAGSfJQp ahPghe2uqON5tXFxlouNbvWOt SHQmwpEhzg1iXCFzOATbdWgua OEfReloRTNsGD9oDIOdKWDTc0 E8tN3rKR5gIANoncLgs8s2sGB ssqLygRkhsXXpZ9RfuUWqUROx x9ztY1deSICrvjWxamuyAqeqL HSkoTOkEHnrs4wvGYZ3 [facility] Work Phone: Pathology report gross observation Narrative q3htfAPnICBpuVTNNNY4YANqK I0goDbfwUd9aFagRESqndH2iN CyQJnlj1suHHG1p7ffzdZJGge qNAXkAO1xQGciFRFjUD9uVwQm XGRlZmYxXHBhcGVydzEyMjQwX EIqcIEdwUX3QBQnDB0gekqyIP nfNPhgATBgbrJ0ISLnqPQjQ4O iPSNgTT7rhryvRZH1DKZTClfl An0joSFqcPIUEmlxMqLxHuOjU SEpGDIyHFSxu7iescXEHWbvTL WAGIb6PVj6DTByNVDmtNMfm5Y 9WTyun6pjh6YmAOSxXOe5qP9H TbcjLKX8DBRFPwygVdwgbGthw 2VjdCBcXHNnIFxcaWQgNTEwMD FsDXroFpUMHbWqLkUlIek7GTC 5AXNzRCg7TZrtVrLLFCPmLCL2 EMMtXOa6ONgzESuwvPOfANJlB JZpSUDtUVajusV0u6naPNYkxK HxHGF9IDfoj3qqLSzuHGH4SVT kIwWhGOSlES2PJmJvHOD9NOU7 JDo5MrW4ZDn2EXTMDiJlQnSiJ Gg0DhJ3RwJuOSh8OAu0YSwWCv TuMUegIGt9HCI9ZYK6PgU0ZCj trfznCJl6CIKhGAiiyvDvIGxn YlyzWKkkK50qtWFoTLHXGtvbn GFpblxlcGljTmVzdERvYzEgDQ dkfUUilVTiBM5MPRk9yjVpZRT iYEXpGoSnKaCsVWs4UPFfnC5s Uk2gzWDeyM8mAYkrCuZpDDHdb 4w0dLV3xDQyvPI8dJYniVhzXS 7maUPhDH3tMKhti6BxxPNqEY4 8jZAbnkKysdQgMhCuajQmOA2b k7VhnkrpbPWySULrmaJeDLUsq Zmfb0mmYAVyH70oybPcr2RczF ZjJUlrjYPxVCZdWyQcqNavh2N eSC1mJWK0qxenLdTuSeXypOEa FhahhLRfXizeK30yYZBHdDMsh OQuf6HnJMQcpXLeE4mkXX8lII Dib3FslFmxczSqrfGguxzvQYL stDXxZPWcFMH5yNLzh3KbG2cf FF8vrZIfTwopEAJ4LZBdHCMDt EVfe7NxU4bxCI6fxYSnIN80wV AjuMorw4LwhQq4zYSzIBbjBS9 qWDGvECBaAYF0IN4auNXaRK0W FCUbRyKpVQQaQ2doRCFaKE6JK 75TLEwbAZIkL65do3GCz1Ffq6 pmjGrlj1CdyKNrLT93JXMevDK yEDD1PE2faLagSIKbRLlhmXPg ZCANClxwbGFpbiANCn0= [facility] Work Phone: Pathology report relevant history Narrative x3cbdJIcGVGwy8rhDFAzkZYgS tPyDmZjXpInTgx5WIPzouF4Gh r2NHKuARkefI7wUHDgZFpyC2l ougRipFYcZNOjUYw3tZ2erCac zY7fGuLrYfGhKBTFlUqylo3pL HViELFfecCakAWux4zgIQPejX == [facility] Work Phone: [facility] Work Phone: Surgical pathology studyon 0 01-11-2025 Surgical pathology study Pathology report.total SEE COMMENT Surgical Pathology Case: [id number] Authorizing Provider: Dominick Barbosa MD Collected: 01/11/2025 1620 Ordering Location: [facility] Received: 01/11/2025 1620 Pathologist: Claudio Ireland MD Specimen: SINUS MASS RIGHT Path report.final diagnosis SEE COMMENT Right sinus mass: - Sinonasal papilloma, inverted type, involving an inflammatory sinonasal polyp. - No high-grade dysplasia or invasive carcinoma identified. - Portion of bone with no significant pathologic findings. jkw at 1019 EDT Laboratory comment By the signature on this report, the individual or group listed as making the Final Interpretation/Diagnosis certifies that they have reviewed this case. Path report.relevant Hx Sphenoidal sinusitis Path report.gross observation SEE COMMENT Received in formalin, labeled with the patient's name and hospital number and sinus mass right , is a polypoid segment of villagran-white soft tissue measuring 1.2 x 0.9 x 0.8 cm. The presumed margin of resection is inked blue and the specimen is bisected. The specimen is entirely submitted in one cassette. [facility] Surgical pathology studyOrde red By: Shakir Ford on 07-19-2024 Laboratory comment Pasquale (Report) k1auaEQlOHUth0vfBHMmjXBxZ zEwMzNcZnRuYmpcdWMxIHtccn MoZQdau3LcF4SaSvXkYPxchqQ gRKOtEqqriyndGSJfMGI1yxUy IODoETfmITLiSKejKt9ebZEpr UlzCeYpRPJhr2shsjTMSUafCU BJKLn8r8xwJBLeAqD9jDXdDQe dF5abylZsjGYxA5Gzx2OaVMj8 wQ62JDYorR6epALpYSikxyDyT tQ8RYblMPEyTzP2BQOtoLBdGQ QqS5bsXLQePOxkEEOrTCohsVM gPWW2eDrns7H7zNQczRUwsTey IwPcJsYfWtADs4UuVAm8dLmmO 6YyEMErRqJ9iVDjEWMrVKcrQH PzBBOpxiC1dJ73WYmdaoL5xQM xn8Kbn30ik297hZ7duGFmRRH9 YLZbKZSdqAEtRHIkFIQ3OFNvz SUwO3ddXyWnjOXvM5WzIeIleT IlA0OrCrJxgIEbX6LkHzRoyNJ mHFOjwWP7WTcug986KHI4HiCy LO8sS9Irz4O6wH0cbVVmDAOxc UOwZtTtLUJcsh4xxJEzGErnd2 WeSAG2obE0hWXvdHSoYKNjHF7 8Prnlt3KnWvrjJEG4GRNnbkDs h5Ieu9tmVqUyjeGvV8zpT3ZeO FTbFEMnEETnGoGpbzDcs5Zcy3 PslGNwtCi7b1uqULAzNBOzsPg cz5neVGO2PQFhE9L7cKLqg1tx JJqsJSIfcBW3msT0XVgoXBQtx bV6vqY0AXzwVAAtpHG0neX9TH vrAWYvBsU0miE3OAyeUHZzFBQ 9VkHwUSBlz8AvmpnpMvFeq7Ix sQMpQNwdB35me780HPUevzFtU 1xwbGFpblxwbGFpblxmMFxmcz C0VKGcZMXoMZalXSRjSHTnCxZ cbGFuZzEwMzNcaGljaFxmMVxk UtCzJVTxDTvbA6yhGqOqWtHeU AUXdQL4pXZpy0fqeaT4pZBwJP 5eRXDfwUPaqtWsb7Y0KHI5zZR cbV7sjBIbRKIptJWajgUjuc20 uPBobYT5ZIQmLLEmpOWruA3tR GGvOXUCrW8coIKBfsLvsePhCP VhmTzekd6TmTOflh5lnIVaA0A ydGlmaWVzIHRoYXQgdGhleSBo ZIFaVCFcgihzn8ZzXSHpfIEiO 1XvUF0sQLGewo77 [facility] Work Phone: Pathology report Cancer Narrative Surgical Pathology Case: [id number] Authorizing Provider: Dominick Barbosa MD Collected: 07/13/2024 1405 Ordering Location: [facility] Received: 07/13/2024 1405 Pathologist: Shakir Ford DDS Specimen: NASAL MASS RIGHT BIOPSY [facility] Work Phone: Pathology report final diagnosis Narrative x8ewrIFmWBTrnNHoDKykQutqt cNhVDZpdCYwK3AfeordPZysOK 2yUJ9qxZqooJOgzUNaWVEfAgP dw4gwr135rHXtr0ltYDCNmvhy xIr9uQufY96ir7Z1RznoG4skC IMgOTpoFOZcGSiyfOZcSNt9GA BhcGVydzEyMjQwXHBhcGVyaDE 1DLLdJN8frotwMKahEOpsYMJb kwW6RFWztVDlM2VcPETmZV5kg uqlVMY8XJmqADGuKOZ2GfDxAA Vzr0Apthe7YhNjqRw0u9evOEC wAPMtzBcra7igULK5KDHkhXXa M5vnhN2cLATfEE5kjiycv3mtI BjpRCohZJKreQG6ptT7HZBshL WxW0VdpL6hBJGdEPGardXnlZy srZ0wLwOyIjdyJrBcVtWmOVjw P1O8uUE3BADlkKfzyJAkTNNcR PYzyJ0sy6i7MWErucaqsaFtu5 bpBNEdux1cKYVuoUUptIBdw7G iYG5zBILeve1ciPIbpC9ktDNy oGP7nT4uBMasfHkuRUNjtQO9q 1JwLFJ1gr9iDBndL13dt1vkiU UlwJL4aKIoULLyto5rGNIcyPR ojeZdCL2mKNVznxwulY0irXHb XHBhcn0= [facility] Work Phone: Pathology report gross observation Narrative r3lmkLHyVEVusIEFLTO5EBAqJ K8exVnaaMo0oXcbCZBpxcJ7uH LnHCoeq6qdBRW4d0gsgiRJPnw sZNFtLH9cSEtiIIIiXK3kMeGs XGRlZmYxXHBhcGVydzEyMjQwX WSciQHlcKB8GBXoOX1gssutZK jbXOmxIPAhpcQ6MRIhpWQoR8V hBUMfHZ5hjkxyNVQ1FJRNEsfq Sb9zbYOcoTHZMvcbVzVhHeVpG GIsSNFiUGTna0rcybIPDZbpAR WYXJs7QZp8VDJeBRSypWCai5M 1ZHzsn4dzv9ScBKPyMDk4iF4Z TrhcEXD8BHXTAdamBmmyvPmss 2VjdCBcXHNnIFxcaWQgNTEwMD GdRZknYgWINyCeSfPvVND0TPj 9YzHtVOg3BXmoMmFQESD9PPy2 QdumSKo8SNiuATgxxXSsTHIhA QCvNOAiXIegxzJ3x0opWCNkkM NnECX8KKxvw4fjWEhaBBQ1WHC hHkPiDWViTW9BVsDtOXD2GkE0 AhtgMmR3XKb0DMOXGrTpNtGwG EEaOha6CXbaBQt7EGk4XMwATu MgBMB9SvZhGKEfAEQ9THH1ZHy eghmmDAg3ISDxOYowkpNuWXiq YifiCYcrZ08egTCjKMTUDqiti GFpblxlcGljTmVzdERvYzEgDQ bjjJOwyHRzEW5WFAq2tgJsGWO tNUXyAhObMLekAgMbSZu7IRMo vI5xXl1cuNNazX5pZDtjPgLfS JTdj9h8zWP9yTQmuNA4pHChbI qvXO8evKAvFI8kCDzhg2XaiOK xXY64rYLkglSdzdNvXr3ng1Es VP7db4AvBsejaNC9WLTfG4w2K fkjUYWePX78uEZhaHvxEZYfsg DwT1XtBSKul1MncEWnbHFsx2C gdGFuLXdoaXRlIHNvZnQgdGlz p0JtAAZpX0VzE5O4hK9nTBUoT VFkVJI3CWGpKhR2NIZkTNJdjB 5gNAZwZDDgrFBqkS3xvvTcoaH srRNayJT7ZAAtuT5vuG43svNm byQbkeDsO9Xhy9Y7bCVkYAItz gZAVrmtNXCyDMAvaJJRl8EaYH HUVzXIKj4CLEShqVAIITZ0IM8 mRMplMGHtJ8NkG7CbapD6z3jq kJham4OwhQTnUZ1wkOSzQE7AX SEsviGhGRsutDxlyD4aEQd5 [facility] Work Phone: Pathology report relevant history Narrative w8etwYByHAOzc9bmHXTarVSaG xYgQaJiHtUtAev9KZSwnaS5Eb u4LVStRIqufH4rNHRjQSyiS0x bauXgjOAtKEQuGUr8mD4xsQob rF7dIkCpLoVrNJMunBBuaxhzH V8baIrmhSPzxTHtnO02g1r3bW NccGFyIH0= [facility] Work Phone: Resident Review k0rcaXPtGQNggXReUMfg Mlxhb sLnZNCeuMBcF8OvasmbTAnqUG 5hUY4znYuthMJeqJZwFOZrGvK ew9qgh982wIFkn5ieXJPBpqog xZz9vSqlL53wd3W0DvizQ59qq OCnVUC5OLWfBXPmjSGcUYBhIN A6ECVzxKNaK2sjTPKwAI1omrt jAPgiPRtaKCPgjEJ2ZIKioLFx U0QlTBBuALqvFFQuiuc3GxHvD n0jqDZilDntSNbkAZHzEPEsTC tpAVSpAaTaGOzcYWhnt7FfIKP nIB7svfZzhAHby9Gsq0HlDoPn dZ2ayE7cwmR5OKYwZPCqvsoop 0JqRTdzBJQcnma6jrQ9pC2qVE asyGgrrKT3aM1bm9t0BFLna7x sWB67VZFTWI7ktHGfA4XpiR1p TXXJRM6ehINhQPXxlrMdyNCfi Q== [facility] Work Phone: [facility] Work Phone: Surgical pathology studyon 1 Surgical pathology study Pathology report.total SEE COMMENT Surgical Pathology Case: [id number] Authorizing Provider: Dominick Barbosa MD Collected: 07/13/2024 1405 Ordering Location: [facility] Received: 07/13/2024 1405 Pathologist: Shakir Ford DDS [...] is submitted in toto in one cassette. [facility] Basophils Auto (Bld) [#/Vol] on 06-08-2024 Basophils (Bld) [#/Vol] 0.1 10 3/uL 0.0-0.1 [facility] Basophils/100 WBC Auto (Bld) on 06-08-2024 Basophils/100 WBC (Bld) 1.2 % 0.2-2.0 [facility] Cholesterol in LDL Calc [Mas s/Vol]on 06-08-2024 Cholesterol in LDL [Mass/Vol] 66.0 mg/dL [facility] Comment on above: <100 mg/dl PPDHSVK27 0-129 mg/dl NEAR OR ABOVE UTIMTQR806-168 mg/dl BORDERLINE INLB167-032 mg/dl HIGH>190 mg/dl VERY HIGH Cholesterol in VLDL Calc [Ma ss/Vol]on 06-08-2024 Cholesterol in VLDL [Mass/Vol] 43.0 mg/dL [facility] Eosinophils/100 WBC Auto (Bl d)on 06-08-2024 Eosinophils/100 WBC (Bld) 3.1 % 0.9-7.0 [facility] Erythrocyte distribution wid th Auto (RBC) [Ratio]on 06-08-2024 Erythrocyte distribution width (RBC) [Ratio] 13.0 % 11.0-15.0 [facility] Estimated glomerular filtrat ion rate (GFR) non- Americanon 06-08-2024 GFR/1.73 sq M.predicted among non-blacks MDRD (S/P/Bld) [Vol rate/Area] mL/min/{1.73_m2} >=60 [facility] Globulin Calc (S) [Mass/Vol] on 06-08-2024 Globulin (S) [Mass/Vol] 4.1 g/dL [facility] Glucose mean value [Mass/vol ume] in Blood Estimated from glycated hemoglobinon 06-08-2024 Average glucose Estimated from glycated hemoglobin (Bld) [Mass/Vol] 128 mg/dL [facility] Hematocrit Auto (Bld) [Volum e fraction]on 06-08-2024 Hematocrit (Bld) [Volume fraction] 45.3 % 42.0-54.0 [facility] Hemoglobin [Mass/volume] in Bloodon 06-08-2024 Hemoglobin (Bld) [Mass/Vol] 14.6 g/dL 14.0-18.0 [facility] Laboratory - Chemistry and C hemistry - challengeon 06-08-2024 Albumin [Mass/Vol] 3.6 g/dL 3.4-5.0 [facility] ALP [Catalytic activity/Vol] 86 U/L 46-116 [facility] ALT [Catalytic activity/Vol] 46 U/L 16-63 [facility] AST [Catalytic activity/Vol] 27 U/L 15-37 [facility] Bilirubin [Mass/Vol] 0.5 mg/dL 0.2-1.0 [facility] Calcium [Mass/Vol] 9.3 mg/dL 8.5-10.1 [facility] Chloride [Moles/Vol] 100 mmol/L 98-107 [facility] Cholesterol [Mass/Vol] 147 mg/dL <=200 [facility] Cholesterol in HDL [Mass/Vol] 38 mg/dL Low 40-60 [facility] Comment on above: > or =60 mg/dl - LOW CARDIOVASCULAR RISK<40 mg/dl - HIGH CARDIOVASCULAR RISK CO2 [Moles/Vol] 28.7 mmol/L 21.0-32.0 [facility] Creatinine [Mass/Vol] 0.93 mg/dL 0.70-1.30 [facility] GFR/1.73 sq M.predicted MDRD (S/P/Bld) [Vol rate/Area] mL/min/{1.73_m2} >=60 [facility] Glucose [Mass/Vol] 121 mg/dL High 74-106 [facility] Potassium [Moles/Vol] 4.2 mmol/L 3.5-5.1 [facility] Protein [Mass/Vol] 7.7 g/dL 6.4-8.2 [facility] Sodium [Moles/Vol] 138 mmol/L 136-145 [facility] Triglyceride [Mass/Vol] 215 mg/dL High <=150 [facility] TSH Qn 3.486 m[IU]/L 0.358-3.740 [facility] Urea nitrogen [Mass/Vol] 16.0 mg/dL 7.0-18.0 [facility] Urea nitrogen/Creatinine [Mass ratio] 17.2 mg/mg [facility] Laboratory - Hematology and Cell countson 06-08-2024 HbA1c (Bld) [Mass fraction] 6.1 % 4.5-6.2 [facility] Comment on above: ADA RECOMMENDED LIMI T 4.0 - 6.0ADA THERAPEUTIC TARGET < 7.0ACTION SUGGESTED> 7.0 Immature granulocytes/100 WBC (Bld) 0.3 % 0.0-0.5 [facility] Leukocytes [#/volume] correc giselle for nucleated erythrocytes in Blood by Automated counon 06-08-2024 WBC corrected for nucl RBC Auto (Bld) [#/Vol] 7.2 10 3/uL 4.0-11.0 [facility] Lymphocytes Auto (Bld) [#/Vo l]on 06-08-2024 Lymphocytes (Bld) [#/Vol] 2.3 10 3/uL 1.2-3.8 [facility] Lymphocytes/100 WBC Auto (Bl d)on 06-08-2024 Lymphocytes/100 WBC (Bld) 32.3 % 20.5-60.0 [facility] MCH Auto (RBC) [Entitic mass ]on 06-08-2024 MCH (RBC) [Entitic mass] 29.0 pg 25.9-34.0 [facility] MCHC Auto (RBC) [Mass/Vol]on 06-08-2024 MCHC (RBC) [Mass/Vol] 32.2 g/dL 29.9-35.2 [facility] MCV Auto (RBC) [Entitic vol] on 06-08-2024 MCV (RBC) [Entitic vol] 89.9 fL 80.0-94.0 [facility] Monocytes Auto (Bld) [#/Vol] on 06-08-2024 Monocytes (Bld) [#/Vol] 0.4 10 3/uL 0.3-0.8 [facility] Monocytes/100 WBC Auto (Bld) on 06-08-2024 Monocytes/100 WBC (Bld) 6.1 % 1.7-12.0 [facility] Neutrophils Auto (Bld) [#/Vo l]on 06-08-2024 Neutrophils (Bld) [#/Vol] 4.1 10 3/uL 1.4-6.5 [facility] Neutrophils/100 WBC Auto (Bl d)on 06-08-2024 Neutrophils/100 WBC (Bld) 57.0 % 43.0-75.0 [facility] No Panel Informationon 06-08 Eosinophils # (Auto) 0.2 10 3/uL 0.0-0.7 [facility] Immature Granulocyte # (Auto) 0.02 10 3/uL 0.00-0.03 [facility] Platelet mean volume Auto (B ld) [Entitic vol]on 06-08-2024 Platelet mean volume (Bld) [Entitic vol] 10.0 fL 9.5-13.5 [facility] Platelets Auto (Bld) [#/Vol] on 06-08-2024 Platelets (Bld) [#/Vol] 355 10 3/uL 150-450 [facility] RBC Auto (Bld) [#/Vol]on RBC (Bld) [#/Vol] 5.04 10 6/uL 4.70-6.10 [facility] Serum or plasma albumin/glob ulin mass ratioon 06-08-2024 Albumin/Globulin [Mass ratio] 0.9 {ratio} [facility] Serum or plasma anion gap de terminationon 06-08-2024 Anion gap [Moles/Vol] 13.5 mmol/L [facility] Serum or plasma total choles terol/high density lipoprotein (HDL) cholesterol mass maria luz 06-08-2024 Cholesterol.total/C holesterol in HDL [Mass ratio] 3.9 {ratio} [facility] Comment on above: 3.3 - 4.4 [...] reviewed this case. Diagnostic interpretation performed at [place] [address] Clinical History: Physician Contact Number: [phone] Fixative (A): Saline Fixative (B): Saline Clinical [...] specimen is entirely submitted in 7 cassettes. [facility] B: Received in formalin, labeled with the patient's name and hospital number and B, microdebrider contents , are multiple, irregular segments of blood and soft tissue aggregating to 5.4 x 3.7 x 1.5 cm. Pencil Inspector sections are submitted in 8 cassettes [facility] Note: Per the pathologist, the rest of specimen B is submitted in toto in 17 additional cassettes. 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 Please feel free to contact my office by calling [phone] with any questions. Provider Impressions 1. 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 Please feel free to contact my office by calling [phone] with any questions. Provider Impressions 1. Inverted [...] day Tylenol TABS Vitals Vital Signs Recorded: [id number] 07:57AM Height6 ft [id number] lb 8 oz BMI Pqnweadtui76.81 kg/m2 BSA Calculated2.89 Tobacco Useb) No Falls [...] (Please see procedure below.) SINONASAL ENDOSCOPY (CPT 24870): To better evaluate the patient's symptoms, sinonasal [...] May 27 2023 8:22AM EST (Author) Normal [facility] Tobacco Screening.on 023 Fall risk assessment a) No falls within the last year [facility] Work Phone: Tobacco use status CPHS b) No MG-Otolaryng ology-[facility] 4100 Work Phone: Established Visit (Otolaryng ology)on 05-20-2023 Established Visit (Otolaryngology) Diagnoses/Problems Chronic ethmoidal sinusitis (473.2) (J32.2) Chronic maxillary sinusitis (473.0) (J32.0) 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 Please feel free to contact my office by calling [phone] with any questions. Provider Impressions 1. Inverted [...] asked him to reach out to my special education secretary and we discussed some time parameters [...] TIMES DAILY NEEDED. Vitals Vital Signs Recorded: [id number] 12:20PM Height6 ft Hjuqzm842 lb 3.2 oz BMI Mugqogeynm10.31 kg/m2 BSA Calculated2.91 Tobacco Useb) No PHQ-2 [...] (Please see procedure below.) SINONASAL ENDOSCOPY (CPT 10367): To better evaluate the patient's symptoms, sinonasal [...] Screening.on 023 Adult depression screening assessment No [facility] 4100 Work Phone: Fall risk assessment a) No falls within the last year [facility] 4[facility] Work Phone: Tobacco use status CPHS b) No -[facility] 4100 Work Phone: No Panel Informationon 05-15 -[facility] 4100 Work Phone: Order Reconciliationon 05-15 [...] Assistance Level: (more content not included)... Normal [facility] Patient Profile - Preop v3on 05-15-2023 Patient Profile - Preop v3 Patient Profile - Preop: Initial Info: Patient DemographicsName: WALE GREY Date: 2000 Address: [address] [place] [address] JAGDEEP HUTCHINS, [facility] Primary Phone [phone] How to be AddressedDylan Spoken Language PreferredEnglish Stated Reason for Admissioninverted papilloma Primary Contact Name and Numbereve Stern [phone] Limitations on Visitors/Phone Callsnone Medications Brought to Hospitalno General Health: Weight in kg185.1 kilogram(s) Weight in jpk127 pound(s) Height in feet5 feet Height in amxjwv41.97 inch(es) Height in cm182.8 centimeter(s) BMI (kg/m2)55.392 square meter Patient or Family Member Reaction to Anesthesiano previous reaction Blood Avoidance/Restrictionsnon e Previous Transfusion Reactionno Health Mgmt: Symptoms/Conditions Managed at Homerespiratory Respiratory Symptoms/Conditionssleep disordered breathing Barriers to Managing Healthnone Relationship/Environ: Lives Withparent(s) Living Arrangementshouse Living Environment Commentsmom Resource/Environmental Concernsnone Anticipated Transition [place] Services Anticipated at Transitionnone Tobacco Use: Tobacco [...] 15-May-2023 11:21 by Ginny Cohen (ARELIS) Normal [facility] Surgical Pathology Depar tmenton 05-15-2023 [facility] Surgical Pathology Department Name WALE GREY [...] reviewed this case. Diagnostic interpretation performed at [facility] [address] [facility] [address] Clinical History: Physician Contact Number: [phone] Fixative (A): Saline Fixative (B): Saline Clinical [...] specimen is entirely submitted in 7 cassettes. [facility] B: Received in formalin, labeled with the patient's name and hospital number and B, microdebrider contents , are multiple, irregular segments of blood and soft tissue aggregating to 5.4 x 3.7 x 1.5 cm. Pencil Inspector sections are submitted in 8 cassettes [facility] Note: Per the pathologist, the rest of specimen B is submitted in toto in 17 additional cassettes. [facility]/05/19/2023 [facility] Department of Pathology [address] [place] [address] Normal [facility] Comment on above: Performed By: #### U HCS #### [facility] Surgical Pathology Department [address] [facility] [address] BASIC METABOLIC PANELon 08-0 Anion gap [Moles/Vol] 16 mmol/L Normal 10 - 20 [facility] Comment on above: Performed By: #### B MP #### [facility] [address] [place] [address] Calcium [Mass/Vol] 9.8 mg/dL Normal 8.6 - 10.6 [facility] Comment on above: Performed By: #### B MP #### [facility] [address] [place] [address] Chloride [Moles/Vol] 101 mmol/L Normal 98 - 107 [facility] Comment on above: Performed By: #### B MP #### [facility] [address] [place] [address] Creatinine [Mass/Vol] 0.81 mg/dL Normal 0.50 - 1.30 [facility] Comment on above: Performed By: #### B MP #### [facility] [address] [place] [address] eGFR MALE >90 Normal >90 [facility] Comment on above: Result Comment: CALC ULATIONS OF ESTIMATED GFR ARE PERFORMED USING THE 2020 CKD-EPI STUDY REFIT EQUATION WITHOUT THE RACE VARIABLE FOR THE IDMS-TRACEABLE CREATININE METHODS. https://jasn.asnjournals.org/content/early/ASN.41258501 88 Performed By: #### B MP #### [facility] [address] [place] [address] Glucose [Mass/Vol] 81 mg/dL Normal 74 - 99 [facility] Comment on above: Performed By: #### B MP #### [facility] [address] [place] [address] HCO3 (Bld) [Moles/Vol] 27 mmol/L Normal 21 - 32 [facility] Comment on above: Performed By: #### B MP #### [facility] [address] [place] [address] Potassium [Moles/Vol] 4.5 mmol/L Normal 3.5 - 5.3 [facility] Comment on above: Performed By: #### B MP #### [facility] [address] [place] [address] Sodium [Moles/Vol] 139 mmol/L Normal 136 - 145 [facility] Comment on above: Performed By: #### B MP #### [facility] [address] [place] [address] Urea nitrogen [Mass/Vol] 13 mg/dL Normal 6 - 23 [facility] Comment on above: Performed By: #### B MP #### [facility] [address] [place] [address] CBCon 05-12-2023 Erythrocyte distribution width (RBC) [Ratio] 13.0 % Normal 11.5 - 14.5 [facility] Comment on above: Performed By: #### C BC #### [place] [address] [place] [address] Hematocrit (Bld) [Volume fraction] 47.2 % Normal 41.0 - 52.0 [facility] Comment on above: Performed By: #### C BC #### [facility] [address] [place] [address] Hemoglobin (Bld) [Mass/Vol] 14.4 g/dL Normal 13.5 - 17.5 [facility] Comment on above: Performed By: #### C BC #### [facility] [address] [place] [address] MCHC (RBC) [Mass/Vol] 30.5 g/dL Low 32.0 - 36.0 [facility] Comment on above: Performed By: #### C BC #### [facility] [address] [place] [address] MCV (RBC) [Entitic vol] 94 fL Normal 80 - 100 [facility] Comment on above: Performed By: #### C BC #### [facility] [address] [place] [address] NUCLEATED RBC 0.0 /100 WBC Normal 0.0-0.0 [facility] Comment on above: Performed By: #### C BC #### [facility] [address] [place] [address] Platelets (Bld) [#/Vol] 400 10*3/uL Normal 150 - 450 [facility] Comment on above: Performed By: #### C BC #### [facility] [address] [place] [address] RBC 5.03 x10E12/L Normal 4.50 - 5.90 [facility] Comment on above: Performed By: #### C BC #### [facility] [address] [place] [address] WBC (Bld) [#/Vol] 9.2 10*3/uL Normal 4.4 - 11.3 [facility] Comment on above: Performed By: #### C BC #### [facility] [address] [place] [address] Laboratory - Chemistry and C hemistry - challengeon 05-12-2023 Anion gap [Moles/Vol] 16 mmol/L 10 - 20 MG-Otolaryng ology-[facility] 4100 Work Phone: [phone] Calcium [Mass/Vol] 9.8 mg/dL 8.6 - 10.6 MG-[facility] [facility] 4100 Work Phone: Chloride [Moles/Vol] 101 mmol/L 98 - 107 [facility] 4100 Work Phone: [phone] CO2 [Moles/Vol] 27 mmol/L 21 - 32 MG-Otolar yng ology-[place] [address] Work Phone: Creatinine [Mass/Vol] 0.81 mg/dL See Below MG-Otolaryng ology-[place] [address] Work Phone: Comment on above: Reference Range: 0.5 0 - 1.30 Glucose [Mass/Vol] 81 mg/dL 74 - 99 MG-Geovanni laryng ology-[place] [address] Work Phone: Potassium [Moles/Vol] 4.5 mmol/L 3.5 - 5.3 [facility] [place] [address] Work Phone: Sodium [Moles/Vol] 139 mmol/L 136 - 145 MG-Geovanni laryng [facility] [address] Work Phone: Urea nitrogen [Mass/Vol] 13 mg/dL 6 - 23 [facility]aryng oly[facility] [place] [address] Work Phone: Laboratory - Hematology and Cell countson 05-12-2023 Erythrocyte distribution width (RBC) [Ratio] 13.0 % See Below [facility]VIEWOtauburnynb[facility] card[facility] cent[facility] [address] Work Phone: Comment on above: Reference Range: 11. 5 - 14.5 Hematocrit (Bld) [Volume fraction] 47.2 % See Below -Otolaryng [facility] [address] Work Phone: Comment on above: Reference Range: 41. 0 - 52.0 Hemoglobin (Bld) [Mass/Vol] 14.4 g/dL See Below -[facility]y-[facility] [place] [address] Work Phone: Comment on above: Reference Range: 13. 5 - 17.5 MCHC (RBC) [Mass/Vol] 30.5 g/dL below low threshold See Below -[place] [address] Work Phone: Comment on above: Reference Range: 32. 0 - 36.0 MCV (RBC) [Entitic vol] 94 fL 80 - 100 MG-[facility] [address] Work Phone: Platelets (Bld) [#/Vol] 400 10*3/uL 150 - 450 MG-[facility]tol[facility] [address] Work Phone: [phone] RBC (Bld) [#/Vol] 5.03 {x10E12/L} See Below MG -[facility]tolaryng [facility] [place] [place] [address] Work Phone: Comment on above: Reference Range: 4.5 0 - 5.90 WBC (Bld) [#/Vol] 9.2 10*3/uL 4.4 - 11.3 [facility] [address] Work Phone: No Panel Informationon 05-12 >90 >90 [place]tolarMel[place] [address] Work Phone: Comment on above: CALCULATIONS OF AMANDA MATED GFR ARE PERFORMED USING THE 2020 CKD-EPI STUDY REFIT EQUATION WITHOUT THE RACE VARIABLE FOR THE IDMS-TRACEABLE CREATININE METHODS.https://jasn.asnjournals.org/content//ASN. 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 Provider Impressions 1. Inverted [...] Vital Signs Recorded: 18Mar2023 01:56PM Height6 ft Esvtyq683 lb 9 oz BMI Offrlzjhzs50.63 kg/m2 BSA Calculated2.91 Tobacco Useb) No PHQ-2 [...] Mar 29 2023 3:44PM EST (Author) Normal [facility] Tobacco Screening.on 023 Adult depression screening assessment No MG-Otolaryng ology-[facility] [employer] Work Phone: Fall risk assessment a) No falls within the last year MG-Otolaryng ology-[place] [employer] Work Phone: Tobacco use status CP b) No MG-Otolaryng ology-[place] [employer] Work Phone: Established Visit (Otolaryng ology)on 01-06-2023 Established Visit (Otolaryngology) Diagnoses/Problems Chronic ethmoidal sinusitis (473.2) (J32.2) Chronic maxillary sinusitis (473.0) (J32.0) Nasal congestion (478.19) (R09.81) 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 Provider Impressions 1. 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 Please feel free to contact my office by calling [phone] with any questions. Provider Impressions 1. Inverted [...] No Reported Medications Vitals Vital Signs Recorded: [id number] 04:13PM Height6 ft Buhuzb497 lb 8 oz BMI Yucjntytge14.89 kg/m2 BSA Calculated2.92 Tobacco Useb) No PHQ-2 [...] (Please see procedure below.) SINONASAL ENDOSCOPY (CPT 88393): To better evaluate the patient's symptoms, sinonasal endoscopy is indicated. After discussion of risks and benefits, and topical decongestion and anesthesia,an endoscope was used to perform (more content not included)... Normal [facility] Tobacco Screening.on 023 Adult depression screening assessment [facility]: Fall risk assessment a) No falls within the last year MG-Otolaryng ology-[facility] Work Phone: Tobacco use status CPHS b) No MG-Otolaryng ology-[facility] Work Phone: MRI LSPINE WO CONon 07-23-20 [...] by: ANTONIO WEINSTEIN Date: 2022-07-23 12:04 Normal [facility] XR LSPINE 2_3 VIEWSon 2021 [...] by: ANTONIO WEINSTEIN Date: 2022-02-18 15:30 Normal [facility] Pathology Reporton 0 Pathology Report [id number]:12 7 Normal [facility] Coding Summary.on 08-31-2019 Coding Summary. CODING DATE: 019 FINAL [facility] STATUS: Home (Routine DC) PAYOR: [facility] [place] APC DESCRIPTION 5155 Level 5 Airway Endoscopy ADMIT DX: REASON FOR VISIT DX: J32.4 Chronic pansinusitis FINAL DX: PRINCIPAL: J32.4 Chronic pansinusitis SECONDARY: J34.89 Other specified disorders of nose and nasal sinuses J45.909 Unspecified asthma, uncomplicated G47.30 Sleep apnea, unspecified Z99.89 Dependence on other enabling machines and devices PYMT PROC APC STAT DESCRIPTION DOCTOR NAME DATE 01816 5155 J1 Nasal/sinus endoscopyJeferson MD, Hilary 08/25/2019 surgical with ethmoidectomy; total (anterior and posterior), including sphenoidotomy, with removal of tissue from the sphenoid sinus RT Right side (used to identify procedures performed on the right side of the body) 81148 5155 J1 Nasal/sinus endoscopyJeferson MD, Hilary 08/25/2019 surgical, with maxillary antrostomy; with removal of tissue from maxillary sinus RT Right side (used to identify procedures performed on the right side of the body) 35296 5155 J1 Nasal/sinus endoscopyJeferson MD, Hilary 08/25/2019 surgical, with frontal sinus exploration, including removal of tissue from frontal sinus, when performed RT Right side (used to identify procedures performed on the right side of the body) 21709 Anesthesia for LeoLoyd bahena Jr., DO 08/25/2019 procedures on nose and accessory sinuses; not otherwise specified NOTE: The code number assigned matches the documented diagnosis and / or procedure in the patient's chart. However, the narrative phrase printed from the coding software may appear abbreviated, or result in slightly different terminology. Revised Coded By: Ngoc Campo Revised Date Saved: 08/31/2019 10:48 am Normal [facility] Main OR Intraoperative Recor don 08-29-2019 Main OR Intraoperative Record IntraOp Document Type FT Summary Primary Physician: Yolette Govea MD Finalized Date/Time: 08/29/19 09:29:47 Pt. Name: SHMUELWALE D.O.B./Sex: 2000 Male Med Rec #: [id number] Physician: Yolette Govea MD Financial #: [id number] Pt. Type: A Room/Bed: [place] [address] Admit/Disch: 08/25/19 09:16:00 - 08/25/19 15:30:00 Institution: [...] Role Performed Anesthesiologist of Surgeon - Primary Survey Field Technician - Primary Record Time In 08/25/19 10:37:00 08/25/19 10:37:00 08/25/19 10:37:00 Time Out 08/25/19 13:03:00 08/25/19 13:03:00 08/25/19 13:03:00 Procedure ANTROSTOMY TURBINECTOMY ANTROSTOMY TURBINECTOMY ANTROSTOMY TURBINECTOMY ETHMOIDECTOMY IM(Right) ETHMOIDECTOMY IM(Right) ETHMOIDECTOMY IM(Right) Comments out of room from 5965-0353. Last Modified By: Patrick INFANTE, Nelly Nguyen RN, Nelly Nguyen RN, Nelly Pearce 08/25/19 13:05:43 08/25/19 13:05:43 08/25/19 13:05:43 Entry 4 Entry 5 Entry 6 Case Attendee Patrick INFANTE, Nelly Aguilar CST, Enzo Tijerina CST, Sheba Segovia Role Performed Survey Field Technician - Primary Scrub - Primary Scrub - Relief Time In 08/25/19 10:37:00 08/25/19 10:37:00 08/25/19 11:40:00 Time Out 08/25/19 13:03:00 08/25/19 13:03:00 08/25/19 12:14:00 Procedure ANTROSTOMY TURBINECTOMY ANTROSTOMY TURBINECTOMY ANTROSTOMY TURBINECTOMY ETHMOIDECTOMY IM(Right) ETHMOIDECTOMY IM(Right) ETHMOIDECTOMY IM(Right) Comments out for lunch at out for lunch at [phone] Last Modified By: Patrick INFANTE, Nelly Nugyen RN, Nelly Nguyen RN, Nelly Pearce 08/25/19 13:05:43 08/25/19 13:05:43 08/25/19 13:05:43 Perioperative [...] López Jr., DO, Given Participants Jeferson HUBBARD, Rehana Rodriguez RN, Patrick Staton RN, Jeff Strauss CST, Enzo Time Out Complete 08/25/19 10:55:00 Outcomes [...] OF TISSUE Primary Procedure Yes Primary Surgeon Jeferson HUBBARD Yolette Adelita Start 08/25/19 11:00:00 Stop 08/25/19 12:54:00 Anesthesia [...] and tissue Entry 1 Skin Integrity Intact, Golinda, Warm, and Skin Abnormality No Dry Outcomes [...] Heel Padding Press Points Checked Yes By Jomar Kimball RN, Fennig Jr. DO, Gary, Farris RN, Karen M Outcomes Met? Yes Last Modified By: Nelly Nguyen RN 08/25/19 11:07:15 Post-Care Text: The patient is free from signs and symptoms of injury related to positioning General Comments: safety strap brittany RichRN Patient Care Devices FT Pre-Care Text: Implements [...] Clear and Intact Condition Condition Grounding Pad Rehana INFANTE, Jomar Morales Placed By Outcomes Met? Yes Last Modified [...] Time 08/25/19 11:42:00 By Jomar Kimball RN, Roth MOBILE TESTER, Jeff Marcano CST, Jeff Giraldo CST, Enzo [...] L Patient Status Stable Skin. Condition Intact, Golinda, Warm, and Dry Airway Maintenance Oxygen in [...] safely administered during the perioperative period For Wayne-Burt please see scanned medication reconcilliation form for [...] AIR Quantity 1 Aid PLUS LOWER BODY [[id number]][F] Fluid/Bejou Unit Mistral warming system Setting high/43 degrees Body Site Lower anterior torso Last Modified By: Nelly Nguyen RN 08/25/19 10:05:52 Case Comments Finalized By: Melisa Rg CST Document Signatures Signed By: Nelly Nguyen RN 08/25/19 13:06 Donny INFANTE, ALEXIS Jomar 08/26/19 11:19 Melisa Rg CST 08/29/19 09:29 Normal [facility] Operative Reporton 08-26-201 9 Operative Report Date of Surgery: 08/25/2019 [...] Yolette Govea Jr., M.D. aek Dictated: 08/25/2019 #[id number] Typed: 08/26/2019 #[id number] cc: Wiliam Carrillo Jr., M.D. [facility] Comment on above: Result Comment: Elec tronically Signed By: Yolette Govea MD\.br\Date and Time Signed: 08/26/19 09:56 EST Inpatient Patient Summaryon 08-25-2019 Inpatient Patient Summary [facility] Clinical Discharge Instructions PERSON INFORMATION Name: WALE GREY PHYSICIANS Admitting Physician: Yolette Govea MD Attending Physician: Yolette Govea MD PCP: ENZO VASQUES DO Discharge Diagnosis: Chronic pansinusitis Comment: PATIENT EDUCATION INFORMATION Instructions: Post Op Patient Instructions - FT (CUSTOM) Medication Leaflets: Follow up: With: Address: When: Yolette Govea [address] [place] [address] Business (1) In 6 days 08/31/2019 Comments: Call for followup appointment MEDICATION LIST Comment: [facility] Main OR PACU I Recordon 08-06 Main OR PACU I Record PACU Phase I Document Type FT Summary Primary Physician: Yolette Govea MD Finalized Date/Time: 08/25/19 13:39:03 Pt. Name: WALE GREYO.B./Sex: 2000 Male Med Rec #: [id number] Physician: Yolette Govea MD Financial #: [id number] Pt. Type: A Room/Bed: [place] [address] Admit/Disch: 08/25/19 09:16:27 - Institution: Case Times [...] By: Jesenia Phan RN 08/25/19 13:39 Normal [facility] Main OR PACU II Recordon Main OR PACU II Record PACU Phase II Document Type FT Summary Primary Physician: Yolette Govea MD Finalized Date/Time: 08/25/19 15:29:24 Pt. Name: WALE GREY Paul Louis./Sex: 2000 Male Med Rec #: [id number] Physician: Yolette Govea MD Financial #: [id number] Pt. Type: A Room/Bed: [facility] Admit/Disch: 08/25/19 09:16:27 - Institution: [...] By: Heavenly Hager RN 08/25/19 15:29 Normal [facility] Main OR Preoperative Recordo n 08-25-2019 Main OR Preoperative Record PreOp Document Type FT Summary Primary Physician: Yolette Govea MD Finalized Date/Time: 08/25/19 11:07:39 Pt. Name: WALE GREY Paul /Sex: 2000 Male Med Rec #: [id number] Physician: Yolette Govea MD Financial #: [id number] Pt. Type: A Room/Bed: [place] [address] Admit/Disch: 08/25/19 09:16:27 - Institution: Case Times [...] By: Nelly Nguyen RN 08/25/19 11:07 Normal [facility] Operative Reporton 9 Operative Report Patient: Ministerio GREY Age: 18 years Sex: Male : 2000 Associated Diagnoses: None Author: Yolette Govea MD Postoperative Information Procedure: RT IG microdebrider assisted MMA with r/o tissue, total ethmoidectomy, frontal sinusotomy, sphenoidotomy with r/o tissue Preoperative Diagnosis: Chronic pansinusitis (ZKG69-DM J32.4, Working, Medical). Postoperative Diagnosis: Chronic pansinusitis (LRN32-XD J32.4, Discharge, Medical). Performed by: Yolette Govea MD. 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 Specimens Removed: nasal polyp, RT sinus contents, RT sinus sock, RT max sinus tissue, RT sphenoid tissue. Estimated Blood Loss: 100 ml. Medications Complications: None. Normal [facility] Comment on above: Result Comment: Elec tronically Signed By: Yolette Govea MD\.br\Date and Time Signed: 08/25/19 13:21 EST Patient Education - Texton 1 10-25-2018 Patient Education - Text Normal [facility] Coding Summary.on 08-22-2019 Coding Summary. CODING DATE: 019 FINAL [facility] STATUS: Home (Routine DC) PAYOR: [facility] [place] APC DESCRIPTION 5521 Level 1 Imaging without [...] CphT Date Saved: 08/22/2019 11:03 am Normal [facility] Auto Diffon 08-19-2019 Basophils/100 WBC (Bld) 1.4 % Normal 0.0-2.0 [facility] Comment on above: Order Comment: Order Added by Discern Expert. Performed By: #### 2 [id number] #### [facility] Laboratory [address] [place] [address] Basophils/Leukocyte s Auto (Bld) [Pure # fraction] 0.2 E9/L Normal 0.0-0.2 [facility] Comment on above: Order Comment: Order Added by Discern Expert. Performed By: #### 2 [id number] #### [facility] [address] [place] [address] Eosinophils/100 WBC (Bld) 1.1 % Normal 0.0-8.0 [facility] Comment on above: Order Comment: Order Added by Discern Expert. Performed By: #### 2 [id number] #### [facility] [address] [place] [address] Eosinophils/Leukocy carlos Auto (Bld) [Pure # fraction] 0.1 E9/L Normal 0.0-0.5 [facility] Comment on above: Order Comment: Order Added by Osiel Expert. Performed By: #### 2 [id number], [id number], [id number] #### [facility] Laboratory [address] [place] [address] 46760 Lymphocytes/100 WBC (Bld) 21.2 % Normal 14.0-50.0 [facility] Comment on above: Order Comment: Order Added by Discern Expert. Performed By: #### 2 [id number], [id number], [id number] #### [facility] [address] [place] [address]12 Lymphocytes/Leukocy carlos Auto (Bld) [Pure # fraction] 2.3 E9/L Normal 1.0-4.0 [facility] Comment on above: Order Comment: Order Added by Discern Expert. Performed By: #### 2 450384, [id number], [id number] #### [facility] [address] [place] [address] 28394 Monocytes/100 WBC (Bld) 5.4 % Normal 4.0-14.0 [facility] Comment on above: Order Comment: Order Added by Discern Expert. Performed By: #### 2 016685, [id number], [id number] #### [facility] [address] [place] [address] 79019 Monocytes/Leukocyte s Auto (Bld) [Pure # fraction] 0.6 E9/L Normal 0.2-1.0 [facility] Comment on above: Order Comment: Order Added by Discern Expert. Performed By: #### 2 343324, [id number], [id number] #### [facility] [address] [place] [address] Neutrophils/100 WBC (Bld) 70.9 % Normal 36.0-75.0 [facility] Comment on above: Order Comment: Order Added by Discern Expert. Performed By: #### 2 762013, [id number], [id number] #### [facility] [address] [place] [address] Neutrophils/Leukocy carlos Auto (Bld) [Pure # fraction] 7.6 E9/L High 2.0-7.5 [facility] Comment on above: Order Comment: Order Added by Discern Expert. Performed By: #### 2 541201, [id number], [id number] #### [facility] [address] [place] [address] 53719 BUNon 08-19-2019 Urea nitrogen [Mass/Vol] 12 mg/dL Normal 5-21 [facility] Comment on above: Performed By: #### 2 812627, 1435837, [id number], 0684787, [id number] #### [facility] [address] [place] [address] 31297 CBC w/ Auto Diffon 9 Erythrocyte distribution width (RBC) [Ratio] 14.1 % Normal 10.9-14.2 [facility] Comment on above: Performed By: #### 2 494126, 8626883, [id number] #### [facility] [address] [place] [address] Hematocrit (Bld) [Volume fraction] 48.4 % Normal 37.7-49.0 [facility] Comment on above: Performed By: #### 2 291875, 8645816, [id number] #### [facility] [address] [place] [address] Hemoglobin (Bld) [Mass/Vol] 16.2 g/dL Normal 13.5-17.5 [facility] Comment on above: Performed By: #### 2 901020, 6181276, [id number] #### [facility] [address] [place] [address] MCH (RBC) [Entitic mass] 29.0 pg Normal 27.0-34.0 [facility] Comment on above: Performed By: #### 2 034095, 5495697, [id number] #### [facility] [address] [place] [address] MCHC (RBC) [Mass/Vol] 33.6 g/dL Normal 31.4-36.0 [facility] Comment on above: Performed By: #### 2 246452, 2727983, [id number] #### [facility] [address] [place] [address] MCV (RBC) [Entitic vol] 86.5 fL Normal 80.0-100.0 [facility] Comment on above: Performed By: #### 2 529505, 8736130, [id number] #### [facility] [address] [place] [address] Platelet mean volume (Bld) [Entitic vol] 8.7 fL Normal 6.4-10.8 [facility] Comment on above: Performed By: #### 2 183429, 6257844, [id number] #### [facility] [address] [place] [address] Platelets (Bld) [#/Vol] 351.0 E9/L Normal 150.0-500.0 [facility] Comment on above: Performed By: #### 2 818262, 2564649, [id number] #### [facility] [address] [place] [address] RBC (Bld) [#/Vol] 5.6 E12/L Normal 4.3-5.9 [facility] Comment on above: Performed By: #### 2 686173, 0122655, [id number] #### [facility] [address] [place] [address] WBC corrected for nucl RBC Auto (Bld) [#/Vol] 10.7 E9/L Normal 4.0-11.0 [facility] Comment on above: Performed By: #### 2 399620, 4712996, [id number] #### [facility] [address] [place] [address] Creatinineon 08-19-2019 Creatinine [Mass/Vol] 0.8 mg/dL Normal 0.5-1.3 [facility] Comment on above: Performed By: #### 2 934548, 1258119, 54513453, 6559447, 6873985 #### [facility] [address] [place] [address] Glucoseon 08-19-2019 Glucose [Mass/Vol] 97 mg/dL Normal 55-199 [facility] Comment on above: Performed By: #### 2 049719, 6255034, 35510528, 0420839, 9761458 #### [facility] [address] [place] [address] Lyteson 08-19-2019 Anion gap [Moles/Vol] 14 mmol/L Normal 6-16 [facility] Comment on above: Performed By: #### 2 652151, 9853696, 97597417, 2626195, 5383138 ####[facility] [address] [place] [address] Chloride [Moles/Vol] 104 mmol/L Normal 101-111 [facility] Comment on above: Performed By: #### 2 594828, 6563555, 52699702, 7504860, 7318987 ####[facility] [address] [place] [address] CO2 [Moles/Vol] 25 mmol/L Normal 21-31 [facility] Comment on above: Performed By: #### 2 657892, 1301010, 60868544, 2083559, 9951094 ####[facility] [address] [place] [address] Potassium [Moles/Vol] 3.5 mmol/L Normal 3.5-5.3 [facility] Comment on above: Performed By: #### 2 811135, 1976874, 48102569, 8922911, 6381261 ####[facility] [address] [place] [address] Sodium [Moles/Vol] 139 mmol/L Normal 135-145 [facility] Comment on above: Performed By: #### 2 009305, 6870697, 12256958, 3180009, 5114738 ####[facility] [address] [place] [address] PT & PTTon 08-19-2019 aPTT Coag (PPP) [Time] 35.7 second(s) Normal 25.1-36.5 [facility] Comment on above: Result Comment: Hepa rin therapeutic range (represented by Anti-Factor Xa activity of 0.2 - 0.4 U/mL) corresponds to PTT of 56.6 - 109.0 sec. Performed By: #### 2 493780, 2305796, 06274853 #### [facility] [address] [place] [address] INR Coag (PPP) [Relative time] 1.0 {INR} [facility] Comment on above: Result Comment: INR results are specifically intended to assess patients stabilized on long-term Anticoagulation therapy suggested INR?s ?Less Intensive Anticoagulation? 2.0 ? 3.0 Conventional Range 3.0 ? 4.5 Performed By: #### 2 774865, 8602116, [id number] #### [facility] [address] [place] [address] PT Coag (PPP) [Time] 11.6 second(s) Normal 10.2-12.9 [facility] Comment on above: Performed By: #### 2 808637, 4690226, [id number] #### [facility] [address] [place] [address] XR Chest 2 Viewson 9 XR Chest [...] M.D. Transcribed by: JAZMYNE Technologist: ZHANNA Normal [facility] eGFRon 08-19-2019 GFR/1.73 sq M predicted among blacks MDRD (S/P/Bld) [Vol rate/Area] mL/min/{1.73_m2} Normal >=59 [facility] Comment on above: Order Comment: Order added by Discern Expert. Result Comment: eGFR is race adjusted. AA=. Performed By: #### 2 645034, 3290460, 54038646, 3296661, 0717040 #### [facility] [address] [place] [address] GFR/1.73 sq M predicted among non-blacks MDRD (S/P/Bld) [Vol rate/Area] mL/min/{1.73_m2} Normal >=59 [facility] Comment on above: Order Comment: Order added by Discern Expert. Result Comment: Occ Med Physician niall kidney disease could be indicated at eGFR's of less than 60 mL/min/1.73m2. Kidney failure is indicated at less than 15 mL/min/1.73m2. Performed By: #### 2 015285, 4275253, 37010904, 6975451, 7160007 #### [facility] [address] [place] [address] Coding Summary.on 08-08-2019 Coding Summary. CODING DATE: 019 FINAL [facility] STATUS: Home (Routine DC) PAYOR: [facility] [place] [facility] DESCRIPTION 5522 Level 2 Imaging without [...] North CphT Date Saved: 08/08/2019 12:24 pm [facility] CT Maxillofacial w/o Contras ton 08-07-2019 CT [...] Germain Bryan M.D. Transcribed by: JAZMYNE Technologist: SB [facility] Vital Signs Date Time Vital Sign Value Performing Clinician Facility 01-16-2025 16:14-0400 Body height 182.25 cm [facility] 01-16-2025 16:140400 Body mass index (BMI) [Ratio] 56.4 kg/m2 [facility] 01-16-2025 16:140400 Body weight 187.44 kg [facility] 01-16-2025 16:14-0400 Diastolic blood pressure 108 mm[Hg] [facility] 01-16-2025 16:14-0400 Heart rate 102 /min [facility] 01-16-2025 16:14-0400 Respiratory rate 12 /min [facility] 01-16-2025 16:14-0400 SaO2% (BldA) [Mass fraction] 97 % [facility] 01-16-2025 16:14-0400 Systolic blood pressure 160 mm[Hg] [facility] 01-11-2025 15:29-0400 Body height 182.9 cm Dominick Barbosa MD Work Phone: [phone] [place] [address] 01-11-2025 15:29-0400 Body mass index (BMI) [Ratio] 55.95 kg/m2 Dominick Barbosa MD Work Phone: [phone] [place] [address] 01-11-2025 15:29-0400 Body weight 187.11 kg Dominick Barbosa MD Work Phone: 4(454)453-291859 [place] [address] 07-13-2024 13:18-0400 Body height 182.9 cm Dominick Barbosa MD Work Phone: [phone])[phone] [place] [address] 07-13-2024 13:18-0400 Body mass index (BMI) [Ratio] 56.42 kg/m2 Dominick Barbosa MD Work Phone: [phone])[phone] [place] [address] 07-13-2024 13:18-0400 Body weight 188.7 kg Dominick Barbosa MD Work Phone: [phone])390-790459 [place] [address] 06-03-2024 14:05-0400 Body height 182.25 cm [facility] 06-03-2024 14:05-0400 Body mass index (BMI) [Ratio] 57.3 kg/m2 [facility] 06-03-2024 14:05-0400 Body weight 190.5 kg [facility] 06-03-2024 14:05-0400 Diastolic blood pressure 91 mm[Hg] [facility] 06-03-2024 14:05-0400 Heart rate 83 /min [facility] 06-03-2024 14:05-0400 Respiratory rate 12 /min [facility] 06-03-2024 14:05-0400 Systolic blood pressure 146 mm[Hg] [facility] 03-09-2024 15:02-0400 Body height 182.9 cm Dominick Barbosa MD Work Phone: [facility] 03-09-2024 15:02-0400 Body mass index (BMI) [Ratio] 56.32 kg/m2 Dominick Barbosa MD Work Phone: [facility] 03-09-2024 15:02-0400 Body weight 188.38 kg Dominick Barbosa MD Work Phone: [facility] 10-06-2023 12:15-0500 Body height 182.25 cm Enzo Ball Other [facility] [employer] Other 10-06-2023 12:15-0500 Body mass index (BMI) [Ratio] 54.62 kg/m2 Enzo Ball Other [facility] [employer] Other 10-06-2023 12:15-0500 Body weight 181.44 kg Enzo Ball Other [facility] [employer] Other 09-02-2023 15:29-0500 Body height 182.9 cm Dominick Barbosa MD Work Phone: [facility] 09-02-2023 15:29-0500 Body mass index (BMI) [Ratio] 54.37 kg/m2 Dominick Barbosa MD Work Phone: [facility] 09-02-2023 15:29-0500 Body weight 181.85 kg Dominick Barbosa MD Work Phone: [facility] 05-27-2023 07:57-0400 Body height 182.88 cm Enzo Vasques Work Phone: [facility] [address] Work Phone: 05-27-2023 07:57-0400 Body mass index (BMI) [Ratio] 55.81 kg/m2 Enzo Vasques Work Phone: [facility] [address] Work Phone: 05-27-2023 07:57-0400 Body surface area Derived from formula 2.89 m2 Enzo Vasques Work Phone: [facility] [address] Work Phone: 05-27-2023 07:57-0400 Body weight 186.66 kg Enzo Vasques Work Phone: [facility] [address] Work Phone: 05-27-2023 07:57-0400 0 1 Enzo Vasques Work Phone: [facility] [address] Work Phone: Comment on above: [employer] 05-20-2023 12:20-0400 Body height 182.88 cm Enzo Vasques Work Phone: [facility] [address] Work Phone: 05-20-2023 12:20-0400 Body mass index (BMI) [Ratio] 56.31 kg/m2 Enzo Vasques Work Phone: [facility] [address] Work Phone: 05-20-2023 12:20-0400 Body surface area Derived from formula 2.91 m2 Enzo Vasques Work Phone: [facility] 4[facility] Work Phone: 05-20-2023 12:20-0400 Body weight 188.33 kg Enzo Vasques Work Phone: VV[facility]falksafkzeegq[facility] 4[facility] Work Phone: 05-15-2023 11:49-0400 Body temperature 96.8 [degF] Dominick Barbosa MD Work Phone: [facility] 05-15-2023 11:49-0400 Diastolic blood pressure 91 mm[Hg] Dominick Barbosa MD Work Phone: [facility] 05-15-2023 11:49-0400 Heart rate 82 /min Dominick Barbosa MD Work Phone: [facility] 05-15-2023 11:49-0400 Respiratory rate 16 /min Dominick Barbosa MD Work Phone: [facility] 05-15-2023 11:49-0400 Systolic blood pressure 139 mm[Hg] Dominick Barbosa MD Work Phone: [facility] 05-15-2023 11:18-0400 Body height 182.8 cm Dominick Barbosa MD Work Phone: [facility] 05-15-2023 11:18-0400 Body mass index (BMI) [Ratio] 55.39 kg/m2 Dominick Barbosa MD Work Phone: [facility] 05-15-2023 11:18-0400 Body weight 185.1 kg Dominick Barbosa MD Work Phone: [facility] 03-18-2023 13:56-0400 Body height 182.88 cm Enzo Vasques Work Phone: LU-Xloduadhjqelig-Ys [place] Work Phone: 03-18-2023 13:56-0400 Body mass index (BMI) [Ratio] 56.63 kg/m2 Enzo Segovia Ball Work Phone: PD-Xjbyffyirlwweu-Yp [place] Work Phone: 03-18-2023 13:56-0400 Body surface area Derived from formula 2.91 m2 Enzo Segovia Ball Work Phone: ON-Qzkoofdikkwqku-Vb [place] Work Phone: 03-18-2023 13:56-0400 Body weight 189.41 kg Enzo Segovia Ball Work Phone: EP-Iopewdhaixuhth-Iu [place] Work Phone: 03-18-2023 13:56-0400 0 1 Enzo Segovia Ball Work Phone: NU-Nlrcnhqbrmfpnm-If [place] Work Phone: Comment on above: [employer] 11-12-2022 16:13-0500 Body height 182.88 cm Enzo Segovia Ball Work Phone: VG-Oigoavsbtzssuu-Ce [address] Work Phone: 11-12-2022 16:13-0500 Body mass index (BMI) [Ratio] 56.89 kg/m2 Enzo Segovia Ball Work Phone: RC-Qqehvockjfsqro-Be [place] Work Phone: 11-12-2022 16:13-0500 Body surface area Derived from formula 2.92 m2 Enzo Segovia Ball Work Phone: UN-Wwgpiqmgxyqbwi-Bd [place] Work Phone: 11-12-2022 16:13-0500 Body weight 190.29 kg Enzo Segovia Ball Work Phone: AV-Sgvxqkzigbgiwq-Dn [place] Work Phone: 11-12-2022 16:13-0500 0 1 Enzo Segovia Ball Work Phone: YV-Iaokcnleeyylvy-Iv [address] Work Phone: Comment on above: [employer] Encounters Encounter Date Encounter Type Care Provider Facility Start: 01-16-2025 End: 01-16-2025 [facility] Work Phone: Start: 01-16-2025 End: 01-16-2025 Patient encounter procedure [facility] Work Phone: Start: 01-16-2025 End: 01-16-2025 ambulatory Ruth Pfeiffer MD Facility:[facility] Start: 01-11-2025 End: 01-11-2025 Office outpatient visit 15 minutes Dominick Barbosa MD Work Phone: [facility] Comment on above: 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); Chronic sphenoidal sinusitis; Chronic maxillary sinusitis Start: 01-11-2025 End: 01-11-2025 ambulatory [facility] Ambulatory Start: 01-02-2025 End: 01-02-2025 ambulatory Ruth Pfeiffer MD Facility:[facility] Start: 09-12-2024 End: 09-12-2024 ambulatory Ruth Pfeiffer MD Facility:[facility] Start: 08-08-2024 End: 08-08-2024 ambulatory [facility] Work Phone: Start: 08-08-2024 End: 08-08-2024 Patient encounter procedure [facility] Work Phone: Start: 07-13-2024 End: 07-13-2024 Office outpatient visit 15 minutes Dominick Barbosa MD Work Phone: [facility] Comment on above: Post-nasal drainage (Primary Dx); Chronic maxillary sinusitis; Nasal congestion Start: 07-13-2024 End: 07-13-2024 ambulatory [facility] Ambulatory Start: 07-04-2024 End: 07-04-2024 ambulatory Ruth Pfeiffer MD Facility:[facility] Start: 06-08-2024 Non-patient / Non-visit [facility] [employer] Work Phone: Start: 06-03-2024 Patient encounter status [facility] Start: 06-03-2024 End: 06-03-2024 ambulatory [facility] Work Phone: Start: 06-03-2024 End: 06-03-2024 Encounter for general adult medical examination without abnormal findings [facility] Start: 06-03-2024 End: 06-03-2024 Patient encounter procedure [facility] Work Phone: Start: 03-09-2024 End: 03-09-2024 ambulatory DOMINICK BARBOSA [facility] Ambulatory Start: 03-09-2024 End: 03-09-2024 Office outpatient visit 15 minutes Dominick Barbosa MD Work Phone: [facility] Comment on above: Chronic ethmoidal si nusitis (Primary Dx); Chronic maxillary sinusitis Start: 10-06-2023 End: 10-06-2023 ambulatory Enzo Vasques Other [facility] [employer] Other Start: 10-06-2023 Office outpatient vi sit 15 minutes Enzo Vasques [facility] Start: 09-02-2023 End: 09-02-2023 Office outpatient visit 15 minutes Dominick Barbosa MD Work Phone: [facility] Comment on above: Chronic ethmoidal si nusitis (Primary Dx); Other chronic sinusitis; Chronic sphenoidal sinusitis Start: 06-07-2023 Chart Update Enzo morales Work Phone: [facility]hnp[facility] Work Phone: Start: 05-27-[address] Dominick Cerda Facility:[id number] Start: 05-20-2023 Postop follow up vis it related to original px Enzo Vasques Work Phone: [facility] 4[facility] Work Phone: Start: 05-20-[address] Enzo Vasques Facility:[id number] Start: 05-15-2023 End: 05-15-[address] Dominick Barbosa Facility:[facility] Start: 05-15-2023 AUDIT Enzo morales Work Phone: PW[facility]edafl[facility] 4102 Work Phone: Start: 05-15-2023 End: 05-15-2023 Subsequent hospital visit by physician Dominick Barbosa MD Work Phone: [facility] Comment on above: Chronic ethmoidal si nusitis; Benign neoplasm of middle ear, nasal cavity and accessory sinuses; Chronic sinusitis, unspecified Start: 05-12-[address] Dominick Cerda Facility:[facility] Start: 05-12-2023 Encounter for preprocedural laboratory examination Dr. Dominick Barbosa [facility] Start: 03-18-2023 Office outpatient vi sit 15 minutes Enzo Vasques Work Phone: EA[facility]tzltt[facility]usekly[facility] 410 Work Phone: Start: 03-18-2023 Patient encounter procedure Enzo Vasques Work Phone: CX-Ilvvfmiogzqzap-[place] Work Phone: Start: 03-18-[address] Dominick Cerda Facility:[id number] Start: 01-07-2023 End: 01-07-2023 ambulatory Enzo Vasques Other [employer] [facility] [employer] Other Start: 01-07-2023 Telephone encounter Enzo Vasques [facility] Start: 01-06-2023 Office outpatient vi sit 25 minutes Enzo Vasques Work Phone: MW[facility]feuwfhnomagup[facility] 4100 Work Phone: Start: 01-06-[address] Dominick Cerda Facility:[id number] Start: 01-05-2023 End: 01-05-2023 ambulatory Enzo Vasques Other [employer] Other Start: 01-05-2023 Office outpatient vi sit 15 minutes Enzo Vasques [facility] Start: 11-19-2022 End: 11-20-[address] DOCTOR PARISI Facility:[facility]1 Start: 11-12-2022 Office outpatient vi sit 25 minutes Enzo Segovia [place] Work Phone: KH-Bdetclcfnmvdlq-[facility] 410 Work Phone: Start: 11-12-2022 Patient encounter procedure Enzo Segovia [place] Work Phone: CQ-Xmbqqtdeikoqux-Gxfz [place] Work Phone: Start: 11-12-[address] Dominick Cerda Facility:[id number] Start: 07-29-2022 End: 08-23-[address] ENZO VASQUES Facility:H1 Start: 07-22-2022 End: 07-23-[address] ENZO VASQUES Facility:H1 Start: 06-24-2022 Well child visit Enzo Vasques Other [employer] Other Start: 03-20-2022 End: 04-25-[address] ENZO VASQUES Facility:H1 Start: 02-18-2022 End: 02-19-[address] ENZO VASQUES Facility:H1 Procedures Date Procedure Procedure Detail Performing Clinician Start: 01-11-2025 Level iv surg pathol ogy gross&microscopic exam Dominick Barbosa MD Work Phone: Start: 07-13-2024 Level iv surg pathol ogy [...] 2) Zoste r Vaccines (1 of 2) [facility] Start: 01-17-2026 End: 01-17-2026 Patient encounter procedure 01/17/2026 3:15 PM EDT Office Visit [facility] [address] [place] [address] Dominick Barbosa MD [address] [place] [address] [facility] Start: 06-05-2025 Influenza vaccination Influenz a Vaccine (Season Ended) [facility] Start: 01-11-2025 End: 01-11-2025 Patient encounter procedure 01/11/2025 3:00 PM EDT Office Visit [facility] [address] [place] [address] Dominick Barbosa MD [address] [place] [address] [facility] Start: 07-13-2024 End: 07-13-2024 Patient encounter procedure 07/13/2024 1:15 PM EDT Office Visit [facility] [address] [place] [address] Dominick Barbosa MD [address] [place] [address] [facility] Start: 06-05-2024 COVID-19 Vaccine ( season) COVID-19 Vaccine ( season) [facility] Start: 06-05-2024 Influenza vaccination [facility] Start: 03-09-2024 End: 03-09-2024 Patient encounter procedure 03/09/2024 2:45 PM EDT Office Visit [facility] [address] [place] [phone] Dominick Barbosa MD [address] [place] [address] [facility] Start: 09-02-2023 FUV, Provider: Dominick Barbosa, Status: Pen, Time: 2:45 PM FUV, Provider: Dominick Barbosa, Status: Pen, Time: 2:45 PM TN[facility]zzwuzosoepuyw[facility] 4100 Work Phone: Start: 09-02-2023 End: 09-02-2023 Patient encounter procedure 09/02/2023 2:45 PM EST Office Visit [facility] [address] [place] [phone] Dominick Barbosa MD [address] [place] [address] [facility] Start: 06-05-2023 COVID-19 Vaccine ( season) COVID-19 Vaccine ( season) [facility] Start: 06-05-2023 Influenza vaccination Influenz a Vaccine (#1) [facility] Start: 05-27-2023 POV, Provider: Dominick Barbosa, Status: Pen, Time: 10:30 AM POV, Provider: Dominick Barbosa, Status: Pen, Time: 10:30 AM UZ-Cbvoyqdcwqfirg-Fxfh [place] Work Phone: Start: 05-20-2023 POV, Provider: Dominick Barbosa, Status: Pen, Time: 12:30 PM POV, Provider: Dominick Barbosa, Status: Pen, Time: 12:30 PM [facility] [place] Work Phone: Start: 12-22-2022 DTaP/Tdap/Td Vaccine s (7 - Td or Tdap) DTaP/Tdap/Td Vaccines (7 - Td or Tdap) [facility] Start: 2022 DTaP/Tdap/Td Vaccine s (1 - Tdap) DTaP/Tdap/Td Vaccines (1 - Tdap) [facility] Start: 03-07-2021 COVID-19 Vaccine (2 - Booster for Isaias series) COVID-19 Vaccine (2 - Booster for Isaias series) [facility] Start: 2018 Hepatitis C screening Hepatitis C Sc reemercedes [facility] Start: 2015 HPV Vaccines (1 - Ma le 3-dose series) HPV Vaccines (1 - Male 3-dose series) [facility] Start: 2011 HPV Vaccines (1 - Ma le 2-dose series) HPV Vaccines (1 - Male 2-dose series) [facility] Start: 11-28-2004 Varicella vaccination Varicell a Vaccines (2 of 2 - 2-dose childhood series) [facility] Start: 2001 MMR Vaccines (1 of 1 - Standard series) MMR Vaccines (1 of 1 - Standard series) [facility] Start: 2001 Varicella vaccination Varicell a Vaccines (1 of 2 - 2-dose childhood series) [facility] Start: 03-23-2001 COVID-19 Vaccine (#1) COVID-19 Vacci ne (#1) [facility] Start: 2000 Hepatitis B Vaccines (1 of 3 - 3-dose series) Hepatitis B Vaccines (1 of 3 - 3-dose series) [facility] Start: 2000 HIV screening HIV Screening [facility] Start: 2000 Lipid panel Lipid Panel [facility] Start: 2000 Yearly Adult Physical Yearly Adult P hysical [facility] Comprehensive metabo lic 2000 panel - Serum or Plasma [facility] Patient Education Low back pain in adults [facility] Work Phone: [facility] Immunizations Immunization Date Immunization Notes Care Provider Fa cility 09-23-2001 varicella virus vaccine Dominick Barbosa MD Work Phone: [facility] Work Phone: Payers Date Payer Category Payer [employer] [facility] [id number] 2022 Unknown 2022 Unknown [id number] 2019 Unknown [id number] 2000 Unknown [id number] 2.16.840.1.027839.3.579.2. 593 2000 Unknown [id number] 2.16.840.1.294068.3.579.2. 593 2000 Unknown [id number] 2.16.840.1.221429.3.579.2. 593 2000 Unknown [id number] 2.16.840.1.169546.3.579.2. 593 2000 Unknown [id number] 2.16.840.1.071459.3.579.2. 593 2000 Unknown [id number] 2.16.840.1.749025.3.579.2. 356 2000 Unknown [id number] 2.16.840.1.502478.3.579.2. 356 2000 Unknown [id number] 2.16.840.1.266785.3.579.2. 356 2000 Unknown [id number] 2.16.840.1.675439.3.579.2. 356 2000 Unknown [id number] 2.16.840.1.080674.3.579.2. 356 2000 Unknown [id number] 2.16.840.1.696333.3.579.2. 356 2000 Unknown [id number] 2.16.840.1.280884.3.579.2. 356 2000 Unknown [id number] 2.16.840.1.032694.3.579.2. 196 2000 Unknown [id number] 2.16.840.1.803743.3.579.2. 196 2000 Unknown [id number] 2.16.840.1.157474.3.579.2. 196 2000 Unknown [id number] 2.16.840.1.362552.3.579.2. 196 2000 Unknown [id number] 2.16.840.1.417300.3.579.2. 1244 2000 Unknown [id number] 2.16.840.1.073805.3.579.2. 1244 2000 Unknown [id number] 2.16.840.1.531503.3.579.2. 1244 Social History Date Type Detail Facility Start: 09-02-2023 End: 01-11-2025 Never a smoker Never a smoker [facility] Work Phone: Start: 09-02-2023 End: 01-11-2025 Sex Assigned At [facility] [employer] [facility] Other Tobacco smoking status TXIS Tobacco smoking consumption unknown [facility] Work Phone: Start: 2000 Sex Assigned At Not on file [facility] Work Phone: Start: 09-02-2023 Tobacco smoking status NHIS Never smoked tobacco [facility] Work Phone: Start: 09-02-2023 Tobacco use and exposure Smokeless tobacco non-user [facility] Work Phone: Start: 08-23-2023 End: 01-11-2025 Exposure to SARS-CoV-2 (event) Not sure [facility] Start: 2000 Sex Assigned At Male F [facility] Start: 01-16-2025 Sex Male (finding) [facility] Functional Status Date Assessment Result Facility 01-11-2025 Patient Health [facility] ionnaire 2 item (PHQ-2) [Reported] [facility] Work Phone: Clinical Notes 09-04-2020 to 01-16-2025 Note Date & Type Note Facility 01-16-2025 Evaluation note Diagnosis Onset Date Resolution Hypertension acute January 16, 2025 3:19pm IFG (impaired fasting glucose) acute January 16, 2025 3:19pm Low back pain acute January 16, 2025 3:19pm Obesity acute January 16 3:19pm [facility] Work Phone: 1(224) 571-963104-09-2025 History of Present illness Narrative* Dominick Barbosa MD - 01/11/2025 3:00 PM EDT Images from the original note were not included. 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 Postnasal drainage 3. Nasal airway obstruction 4. Throat clearing, coughing 5. Asthma, allergy symptoms 6. Obstructive sleep apnea on positive pressure History Of Present Illness: Wale Grey presents since last being seen 07/13/2024. 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 He has done well since his last evaluation without significant sinonasal symptoms. He is using saline rinses as needed for nasal dryness. Main Symptoms: Patient does not have anterior [...] have coughing. Patient does not have dysphonia. Patient does not have sneezing. Patient does not have itchy eyes. Patient has nasal bleeding. Occasional with dryness but now resolved. Medications currently on for sinonasal symptoms: Saline rinses PRN for dryness Medications tried in the past for sinonasal symptoms: None Active Problems: There is no problem list [...] mg) by mouth early in the morning.., Disp:, Rfl: mometasone furoate, bulk, 100 % powder, Compound 2 mg capsule to be added to sinus rinse twice daily., Disp: 180 g, Rfl: 3 Vitals: Visit Vitals Ht 1.829 m (6') Wt (!) 187 kg (412 lb 8 oz) BMI 55.95 kg/m Smoking Status Never BSA 3.08 m Physical Exam: Nose: On external exam there are neither lesions nor asymmetry of the nasal tip/dorsum. On anteriorrhinoscopy, visualization posteriorly is limited on anterior examination. For this reason, to adequately evaluate posteriorly for masses, source of epistaxis, polypoid disease, debridement, and/or signs of infections, nasal endoscopy is indicated. (Please see procedure below.) SINONASAL ENDOSCOPY WITH BIOPSY (CPT 44652-J): Due to the patient's nasal cavity / [...] of the right nasal cavity revealed a widely patent maxillary sinus. On the floor posteriorly there was some remnant of the previously biopsied lesion. The right ethmoid cavity appeared normal and the sphenoid is widely patent but on the floor of the right sphenoid there was amanda ypoid appearing lesion. Using a pediatric Blakesley the lesion was excised to the level of the mucosa. It was sent for permanent pathological analysis. Examination of the left nasal cavity revealed normal middle meatus and sphenoethmoid recess without pus or polyps. 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 Asthma, allergy symptoms 3. Obstructive sleep apnea on positive pressure Discussion: Wale Grey appeared well on examination today. His previous biopsy from the right maxillary sinus returned as benign. There was a lesion today anteriorly on the floor of the right sphenoid that was also biopsied. Reviewing my previous notes, in March 09, 2024 this lesion was not present within the right sphenoid and July 13, 2024 I saw some edematous mucosa. What was identified today was more prominent hence than on the prior exam and, therefore, was biopsied. I recommended continuation of saline rinses and routine follow-up in 12 months. I will follow-up with him when the biopsy returns either virtually or via telephone. All questions were answered. Scribe Attestation By signing my name below, I, Tana Vitale, attest that this documentation has been prepared under the direction and in the presence of Dominick Barbosa MD. Signature: Dominick Barbosa MD documented in this [facility] Work Phone: 1(119) 488-133610-09-2024 History of Present illness Narrative* Dominick Barbosa MD - 07/13/2024 1:15 PM EDT Images from the original note were not [...] mg) by mouth early in the morning.., Disp:, Rfl: mometasone furoate, bulk, 100 % powder, [...] procedure below.) SINONASAL ENDOSCOPY WITH BIOPSY (CPT 00283-A): Due to the patient's nasal cavity / [...] were widely patent. There was some edematous mucosaon the floor of the sphenoid. There was [...] Signature: Dominick Barbosa MD documented in this [facility] Work Phone: 1(506) 363-179406-05-2024 History of Present illness Narrative* Dominick Barbosa MD - 03/09/2024 2:45 PM EDT Chief Complaint: 1. 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 Gvoea 08/25/19; s/p revision 05/15/23 2. Asthma 3. [...] (Please see procedure below.) SINONASAL ENDOSCOPY (CPT 46972): To better evaluate the patient's symptoms, sinonasal [...] was not the typical irregularity seen with papilloma.The ethmoid cavity and sphenoid were each widely [...] mucous retention cyst and not papilloma. We discusseda number of options including observation versus entering the lesion in clinic as a cystic lesion wo uld be easy to identify. He was comfortable [...] continue the mometasone rinses once per day movingforward. Signature: Scribe Attestation By signing my name below, I, Tana Jasso attest that this documentation has been prepared under the direction and in the presence of Agustina Barbosa MD. [facility] Work Phone: 1(118) 196-825701-02-2024 Evaluation note* Encounter Date Diagnosis Assessment Notes Treatment Notes Treatment Clinical Notes Oct, Acute non-recurrent maxillary sinusitis (ICD-10 [...] index [BMI] 50.0-59.9, adult (ICD-10 - Z68.43) [facility] Other 11-29-2023 History of Present illness Narrative* [...] (Please see procedure below.) SINONASAL ENDOSCOPY (CPT 64946): To better evaluate the patient's symptoms, sinonasal [...] free to contact my office by calling [phone] with any questions. Signature: Scribe Attestation By signing my name below, I, Reina Irvin , Tana attest that this documentation has been prepared under the direction and in the presence of Agustina Barbosa MD. documented in this [facility] Work Phone: 1(304) 200-892208-11-2023 NotePost Operative Note: PreOp Diagnosis: Right sinonasal inverted papilloma, chronic sinusitis Post-Procedure Diagnosis: Same Procedure: 1. Right nasal endoscopy with total ethmoidectomy including sphenoidotomy with tissue removal CPT 64928-D-54 2. Right nasal endoscopy with frontal sinusotomy CPT 70777-F 3. Right maxillary endoscopy with tissue removal 40563-V 4. Extracranial CT image guidance CPT 92549 Surgeon: Familia Resident/Fellow/Other Spotter: None Anesthesia: GET Estimated Blood Loss (mL): [...] middle turbinate was resected (more content not included)...[facility] 05-15-2023 Miscellaneous Notes* Op Note - Dominick Barbosa MD - 05/15/2023 4:37 PM EDT Post Operative Note: PreOp Diagnosis: Right sinonasal inverted papilloma, chronic sinusitis Post-Procedure Diagnosis: Same Procedure: 1. Right nasal endoscopy with total ethmoidectomy including sphenoidotomy with tissue removal CPT 99041-H-83 2. Right nasal endoscopy with frontal sinusotomy CPT 78318-B 3. Right maxillary endoscopy with tissue removal 78516-K 4. Extracranial CT image guidance CPT 07755 Surgeon: Familia Resident/Fellow/Other Spotter: None Anesthesia: GET Estimated Blood Loss (mL): [...] 17:00 by Dominick Barbosa) documented in this [facility] Work Phone: 1(172) 155-979308-11-2023 Note* Op Note - Dominick Barbosa MD - 05/15/2023 4:37 PM EDT Post Operative Note: PreOp Diagnosis: Right sinonasal inverted papilloma, chronic sinusitis Post-Procedure Diagnosis: Same Procedure: 1. Right nasal endoscopy with total ethmoidectomy including sphenoidotomy with tissue removal CPT 73625-J-71 2. Right nasal endoscopy with frontal sinusotomy CPT 66406-C 3. Right maxillary endoscopy with tissue removal 00110-M 4. Extracranial CT image guidance CPT 35937 Surgeon: Familia Resident/Fellow/Other Spotter: None Anesthesia: GET Estimated Blood Loss (mL): [...] Last Updated: 15-May-2023 17:00 by Dominick Barbosa) [facility] Work Phone: 1(728) 339-707908-11-2023 History of Present illness Narrative* Wale presents for his first postoperative visit following right-sided sinus surgery in 05/15/23. * Following his surgery he has done well. He has been having some headaches that are controlled with Tylenol. His breathing has been significantly improved. He is rinsing several times per day. He denies significant nasal drainage. [facility] [address] Work Phone: 1([phone]) 137-169408-11-2023 NoteHistory of Present Illness: History Present Illness: [...] Completion Last Updated: 15-May-2023 11:51 by Dominick Barbosa)[facility]08-11-2023 History and physical note* Dominick [...] Last Updated: 15-May-2023 11:51 by Dominick Barbosa) [facility] Work Phone: 1([phone]) 371-541708-11-2023 History and physical note* Dominick Barbosa MD [...] Completion Last Updated: 15-May-2023 11:51 by Dominick Barbosa () documented in this [facility] Work Phone: 1([phone]) 279-458204-05-2023 Evaluation note* Encounter Date Diagnosis Assessment Notes Treatment Notes Treatment Clinical Notes Jan, Inverted papilloma of nasal cavity (ICD-10 - D14.0) [facility] Other 04-04-2023 Chief complaint Narrative - Reported* [...] 5. Obstructive sleep apnea on positive pressure [facility] [address] Work Phone: 1(322) 915-816404-04-2023 History of Present illness Narrative* Reason for visit: * WALE GREY patient presents since last being seen 01/06/23. * Wale presents for routine follow-up. He is interested in going forward with his inverted papillomaresection and would like to schedule it as soon as there is availability. [facility]Xtpziplukwpbrm-Bnjcbvdx Work Phone: 1([phone]) 542-373404-04-2023 History of Present illness Narrative* Reason for visit: * WALE GREY patient presents since last being seen 01/06/23. * Wale presents for routine follow-up. 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 [facility] [address] Work Phone: [phone] Evaluation note* Encounter Date Diagnosis Assessment Notes [...] for congestion, Tylenol for pain and fever. [facility] Other 12-01-2020 History of Present illness Narrative* [...] and is using flonase only as needed. QD-Xqappcbayteiod-Tyxgwxrm Work Phone: 1([phone]) 965-324512-01-2020 History of Present illness Narrative* Reason for [...] well outside of some nasal breathing issues. [facility] Work Phone: Evaluation note* Diagnosis Chronic ethmoidal sinusitis Benign neoplasm of middle ear, nasal cavity and accessory sinuses Benign neoplasm of nasal cavities, middle ear, and accessory sinuses Chronic sinusitis, unspecified documented in this encounter [facility] Work Phone: Evaluation note* Diagnosis Chronic ethmoidal sinusitis- Primary Other chronic sinusitis Chronic sphenoidal sinusitis documented in this encounter [facility] Work Phone: Evaluation note* Diagnosis Chronic ethmoidal sinusitis- Primary Chronic maxillary sinusitis documented in this encounter [facility] Work Phone: Evaluation note* Diagnosis Onset Date Resolution Status Bulging lumbar disc acute Elevated BP without diagnosis of hypertension acute Low back pain acute Obesity acute Wellness examination acute [facility] Work Phone: Evaluation note* Diagnosis Post-nasal drainage- Primary Other diseases of nasal cavity and sinuses Chronic maxillary sinusitis Nasal congestion Other diseases of nasal cavity and sinuses documented in this encounter [facility] Work Phone: Evaluation note* Diagnosis Onset Date Resolution Status Bulging lumbar disc acute Elevated BP without diagnosis of hypertension acute Low back pain acute Obesity acute Wellness examination acute IFG (impaired fasting glucose) acute Acute sinusitis noneactive [facility] Work Phone: Evaluation note* Diagnosis 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, middle ear, and accessory sinuses Chronic sphenoidal sinusitis Chronic maxillary sinusitis documented in this encounter [facility] Work Phone: History general Narrative - Reported* [...] ethmoidectomy 08/25/2019 Hospitalization History see surgical history [facility] Other History of Present illness Narrative* Wale [...] 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 [facility]yl[facility] [address] Work Phone: Summary Purpose Family History [...] Complaint and Reason for Visit Chief Complaint [facility] Reason for Visit Bulging lumbar disc Elevated BP without diagnosis of hypertension Low back pain Obesity Wellness examination Chief Complaint [facility] [phone] sinus infection Reason for Visit Bulging lumbar disc Elevated BP without diagnosis of hypertension Low back pain Obesity Wellness examination IFG (impaired fasting glucose) Acute sinusitis Chief Complaint Admit Date 4 month f/u January 16, 2025 3:1 9pm Reason for Visit Admit Date Hypertension January 16, 2025 3:1 9pm IFG (impaired fasting glucose) January 3:19pm Low back pain January 16, 2025 3:1 9pm Obesity January 16, 2025 3:1 9pm Additional Source Comments (unrecognized sect ion and content) No Status Records FoundNo Status Records FoundNo Status Records FoundNo Status Records FoundNo Status Records FoundNo Status Records Found INFORMATION SOURCE (unrecogn ized section and content) DATE CREATED AUTHOR 03/06/2020 [facility] DATE CREATED AUTHOR AUTHOR'S ORGANIZ ATION 11/24/2022 [facility] DATE CREATED AUTHOR AUTHOR'S ORGANIZ ATION 05/28/2023 [facility] DATE CREATED AUTHOR AUTHOR'S ORGANIZ ATION 06/05/2023 [facility] DATE CREATED AUTHOR AUTHOR'S ORGANIZ ATION 01/26/2025 [facility] DATE CREATED AUTHOR AUTHOR'S ORGANIZ ATION 01/27/2025 [facility] REASON FOR VISIT (unrecogniz ed section and content) Reason Comments Other Right endoscopic sin us surgery with image guidance, right endoscopic medial maxillectomy, septoplasty Reason Comments Follow-up Care Teams (unrecognized sec tion and content) Special Education Paraprofessional Relationship Specialty Start Date End Date Enzo Vasques DO PCP - General 09/21/19 Special Education Paraprofessional Relationship Specialty Start Date End Date Enzo Vasques DO PCP - General 09/21/19 Special Education Paraprofessional Relationship Specialty Start Date End Date Enzo Vasques DO PCP - General 09/21/19 Cristiana Triplett APRN-RUBBER AND PLASTICS WORKER [id number] [place] [address] PCP - Cyndie MILLERO PCP 09/04/23 Team Status: Active Member Role Status Dates Enzo [place] DO Primary Care Provider Active Team Status: Inactive Member Role Status Dates Enzo [place] DO Primary Care Provide r, Attending Provider Active Start: June 03, 2024 End: June 03, 2024 Special Education Paraprofessional Relationship Specialty Start Date End Date Enzo Vasques DO PCP General 09/21/19 Team Status: Active Member Role Status Dates Enzo Vasques DO Primary Care Provide r, Attending Provider Active Start: June 08, 2024 Team Status: Inactive Member Role Status Dates Enzo [place] DO Primary Care Provide r, Attending Provider Active Start: August 08, 2024 End: August 08, 2024 Team Status: Inactive Member Role Status Dates Enzo Vasques DO Primary Care Provide r, Attending Provider Active Start: January 16, 2025 End: January 16, 2025 Goals (unrecognized section and content) Goals may [...] BE BASED ON THE PRIMARY CLINICAL RECORDS. [facility] [email or web address] [facility]. provides no warranty or guarantee of the accuracy or completeness of information in this document.
[2025-02-13 08:21] VITALS: BP 155/107; PULSE 88; TEMP 36.4; O2SAT 97
[2025-02-13 08:24] LABS: Glucometer 109 mg/dL (74-106)
[2025-02-13 09:10] VITALS: BP 156/91; BP 174/99; PULSE 80; PULSE 82; O2SAT 97; O2SAT 98
[2025-02-13] MEDS: BUPIVACAINE HCL 0.25% PF 25 MG/10 ML VIAL 4 ML INJ (09:14)
[2025-02-13] MEDS: METHYLPREDNISOLONE ACETATE 40 MG/ML VIAL 80 MG INJ (09:14)
[2025-02-13] MEDS: LIDOCAINE HCL 2% 400 MG/20 ML MDV 16 ML INJ (09:14)
--- NOTE | 2025-02-13 09:24 | P.ON_ITS ---
Date of procedure: 02/13/25 Pre-op diagnosis: Pain due to lumbar spondylosis without myelopathy Post-op diagnosis: same as pre-op Procedure: Procedure: Bilateral L4-5, l5-S1 radiofrequency ablation Medications: Bupivacaine 0.25% 6cc, lidocaine 2% 6cc, depomedrol 80mg The patient was seen and examined in the preoperative holding area.? The site was marked.? Written informed consent was obtained and placed on the chart.? The patient was brought to the medical procedure unit and placed in the prone position.? A timeout was completed verifying correct patient, procedure, positioning, and special requirements.? The skin overlying the target points, the designated medial branch, were prepped and draped in the usual sterile fashion.? The target point was achieved with a 20-gauge 15 cm with a 10 mm curved active tip radiofrequency cannula under direct fluoroscopic visualizati on.? The needle was inserted at level L4 on the right side. Needle tip position was confirmed with lateral fluoroscopic position.? Motor stimulation was carried out at 2 Hz up to 5 volts with the absence of extremity activity.? This was repeated at level L5, S1 on right side.?? Sensory stimulation was carried out.? Concordant pain was realized at the above- mentioned sites.? Then radiofrequency lesioning was carried out times 90 seconds at 80 degrees times 2 lesions at each level.? The radiofrequency probe was removed prior to cannula removal.? The above-mentioned injectate was placed in 1 mL increments.? The needle was removed. The same procedure, with the same steps, was then completed on the left side at the same levels. Insertion sites were covered.? The patient was taken to the postoperative recovery area and monitored for an appropriate length of time before being found suitable for discharge in the company of a responsible adult. Anesthesia: Local Surgeon: Ruth Pfeiffer Pathology: none sent Condition: stable Disposition: no change
== END 2025-02-13 09:29 | disposition home or self-care (01) ==
LOC: SURGOUT 07:53
PROVIDERS: Family Provider Internal Medicine; PCP Internal Medicine; Visit Provider Anesthesiology
DX: M47.816 Spondylosis without myelopathy or radiculopathy, lumbar region (principal); M54.50 Low back pain, unspecified; E11.8 Type 2 diabetes mellitus with unspecified complications
CPT/HCPCS: 36415; 64635; 64636; 82948; J0665; J1010

== ENCOUNTER 2025-03-16 10:25 | Outpatient (OUT) | payer BC, SELFPAY ==
--- OUTSIDE RECORDS SUMMARY | 2025-03-16 10:27 | XMS_ITS | Clinical Summary ---
Author Organization [facility] Address [address] [place] [address] Phone Care Team Providers Care Cullet Crusher And Washer Name Role Phone Enzo Vasques DO Primary Care Provider [phone] Allergies No known active allergies Medications mometasone furoate, bulk, 100 % powderIndicatio ns:Other chronic sinusitis Compound 2 mg capsule to be added to sinus rinse twice daily. 180 g 3 09/03/2023 Active metFORMIN (Glucophage) 850 mg tablet Take 1 tablet (850 mg) by mouth early in the morning.. 06/17/2024 Active Active Problems No known active problems Encounters Date Type Department Care Team Description 02/13/2025 4:45 PM EDT Telemedicine [facility] [address] [place] [address] Dominick Barbosa MD Benign neoplasm of sphenoid sinus (Primary Dx); Chronic sphenoidal sinusitis 01/11/2025 3:00 PM EDT Office Visit [facility] [address] [place] [address] Dominick Barbosa MD Benign neoplasm of sphenoid sinus (Primary Dx); Chronic sphenoidal sinusitis; Chronic maxillary sinusitis 01/11/2025 Orders Only [facility] [address] [place] [address] Carlotta, Emily, mining technician sphenoidal sinusitis 01/11/2025 Travel from Last 3 Months Social History Tobacco Use Types Packs/Day Years Used Date Smoking Tobacco: Never Smokeless Tobacco: Never Tobacco Cessation:Counseling Given: Not Answered PHQ-2 Answer Date Recorded Patient Health Questionnaire-2 Score 0 01/11/2025 Sex and Gender Information Value Date Recorded Sex Assigned at Not on file Legal Sex Male 8:12 PM EST Gender Identity Not on file Sexual Orientation Not on file Last Filed Vital Signs Vital Sign Reading Time Taken Comments Blood Pressure 139/91 05/15/2023 11:49 AM EDT Pulse 82 05/15/2023 11:49 AM EDT Temperature 36 C (96.8 F) 05/15/2023 11:49 AM EDT Respiratory Rate 16 05/15/2023 11:49 AM EDT Oxygen Saturation - - Inhaled Oxygen Concentration - - Weight 187 kg (412 lb 8 oz) 01/11/2025 3:29 PM E DT Height 182.9 cm (6') 01/11/2025 3:29 PM EDT Body Mass Index 55.95 01/11/2025 3:29 PM EDT Plan of Treatment Upcoming Encounters Date Type Department Care Team (Late st Contact Info) Description 07/12/2025 3:00 PM EDT Office Visit [facility] [address] [place] [address] Dominick Barbosa MD [address] [place] [address] 01/17/2026 3:15 PM EDT Office Visit [facility] [address] [place] [address] Dominick Barbosa MD [address] [place] [address] Health Maintenance Due Date Last Done Comments HIV Screening 2000 Lipid Panel 2000 Yearly Adult Physical 2000 Varicella Vaccines (2 of 2 - 2-dose childhood series) 11/28/2004 09/23/2001 HPV Vaccines (1 - Male 3-dose series) 2015 Hepatitis C Screening 2018 DTaP/Tdap/Td Vaccines (7 - Td or Tdap) 12/22/2022 12/22/2012, 10/31/2004, 08/01/2002, Additional history exists COVID-19 Vaccine (2 - season) 2024 01/10/2021 Influenza Vaccine (Season Ended) 2025 Zoster Vaccines (1 of 2) 2050 09/23/2001 HIB Vaccines Completed 09/23/2001, 01/03, 2000 Hepatitis B Vaccines Completed 09/23/2001, 2000, 2000 Pneumococcal Vaccine: Pediatrics and At-Risk Adult Patients Aged Out 05/05/2003, 03/31/2001, 01/21/2001, Additional history exists No longer eligible based on patient's age to complete this topic IPV Vaccines Completed 10/31/2004, 03/06, 01/21/2001, Additional history exists MMR Vaccines Completed 10/31/2004, 09/23/2001 Meningococcal Vaccine Completed 03/26/2018 Hepatitis A Vaccines Aged Out No long er eligible based on patient's age to complete this topic Rotavirus Vaccines Aged Out No longer eligible based on patient's age to complete this topic Procedures Procedure Name Priority Date/Time Associated Diagnosis Comments SURGICAL PATHOLOGY EXAM Routine 01/11/2025 4:20 PM EDT Chronic sphenoidal sinusitis from Last 3 Months Results * Surgical Pathology Exam (01/11/2025 4:20 PM EDT) Case Report Surgical Pathology Case: [id number] Authorizing Provider: Dominick Barbosa MD Collected: 01/11/2025 1626 Ordering Location: [facility] Received: 01/11/2025 1620 Pathologist: Claudio Ireland MD Specimen: SINUS MASS RIGHT 01/18/2025 10:19 AM EDT [facility] FINAL DIAGNOSIS Right sinus mass: - Sinonasal papilloma, inverted type, involving an inflammatory sinonasal polyp. - No high-grade dysplasia or invasive carcinoma identified. - Portion of bone with no significant pathologic findings. jkw 01/18/2025 10:19 AM EDT [facility] at 1019 EDT By the signature on this report, the individual or group listed as making the Final Interpretation/ Diagnosis certifies that they have reviewed this case. 01/18/2025 10:19 AM EDT [facility] Clinical History Sphenoidal sinusitis 01/18/2025 10:19 AM EDT [facility] Gross Description Received in formalin, labeled with the patient's name and hospital number and sinus mass right , is a polypoid segment of villagran-white soft tissue measuring 1.2 x 0.9 x 0.8 cm. The presumed margin of resection is inked blue and the specimen is bisected. The specimen is entirely submitted in one cassette. SMS 01/18/2025 10:19 AM EDT [facility] Tissue (SINUS MASS RIGHT) Non-blood Collection / Unknown 01/11/2025 4:20 PM EDT 01/11/2025 4:20 PM EDT Dominick Barbosa MD LAB PATHOLOGY ORDERABLES Final Result [facility] [id number] [id number] from Last 3 Months Insurance [facility] Member Subscriber Plan / Payer (Ef fective 2022-Present) Name:Wale Grey Member ID:[id number] Relation to Subscriber:Child Name:CHALINO LAWSON Subscriber ID:[id number] Date of :1968 (Home) Address: [place] [address] Payer ID:[id number] (NAIC) Type:Not on file Address: [address] [place] [address] [facility] Care Teams Cullet Crusher And Washer Relationship Specialty Start Date End Date Enzo Vasques DO PCP - General 09/21/19
--- OUTSIDE RECORDS SUMMARY | 2025-03-16 10:27 | XMS_ITS | Clinical Summary ---
Author Organization [facility] Address [address] [place] [address] Care Team Providers Care Litigation Claim Representative Name Role Phone Unavailable Primary Care Provider Unavailabl e Social History Tobacco Use Types Packs/Day Years Used Date Smoking Tobacco: Never Assessed Sex and Gender Information Value Date Recorded Sex Assigned at Not on file Legal Sex Male 7:05 PM EDT Gender Identity Not on file Sexual Orientation Not on file Last Filed Vital Signs Vital Sign Reading Time Taken Comments Blood Pressure 163/106 10/08/2022 12:00 PM EST Pulse - - Temperature - - Respiratory Rate - - Oxygen Saturation - - Inhaled Oxygen Concentration - - Weight 181 kg (400 lb) 10/08/2022 12:00 PM EST Height 182.9 cm (6') 10/08/2022 12:00 PM EST Body Mass Index 54.25 10/08/2022 12:00 PM EST Plan of Treatment Not on file Insurance [facility]
--- OUTSIDE RECORDS SUMMARY | 2025-03-16 10:27 | XMS_ITS | Encounter Summary ---
Author Organization [facility] Address [address] [place] [address] Phone Care Team Providers Care Access Clerk Name Role Phone Enzo Vasques DO Primary Care Provider [phone] Cristiana Triplett GAS OPERATIONS ANALYST-SCOW DERRICK OPERATOR Unavailable Encounter Details Date Type Department Care Team (Late st Contact Info) Description 12/07/2023 Patient Risk Score [facility] [address] [place] [address] Social History Tobacco Use Types Packs/Day Years Used Date Smoking Tobacco: Never Smokeless Tobacco: Never PHQ-2 Answer Date Recorded Patient Health Questionnaire-2 Score 0 09/02/2023 Sex and Gender Information Value Date Recorded Sex Assigned at Not on file Legal Sex Male 8:12 PM EST Gender Identity Not on file Sexual Orientation Not on file documented as of this encounter Plan of Treatment Upcoming Encounters Date Type Department Care Team (Late st Contact Info) Description 07/12/2025 3:00 PM EDT Office Visit [facility] [address] [place] [address] Dominick Barbosa MD [address] [facility] [address] [place], [place] [id number] 01/17/2026 3:15 PM EDT Office Visit [facility] [address] [place] [address] Dominick Barbosa MD [address] [facility] [address] [place] [address] documented as of this encounter Visit Diagnoses Not on filedocumented in this encounter Additional Health Concerns Assessment Noted Time A fall risk assessment has been complete d for the patient 09/02/2023 3:31 PM EST documented as of this encounter Care Teams Access Clerk Relationship Specialty Start Date End Date Enzo Vasques DO PCP - General 09/21/19 Cristiana Triplett APRN-SCOW DERRICK OPERATOR [address] [place] [address] PCP - Cyndie ENCISO PCP 09/04/23 01/03/24 documented as of this encounter
--- OUTSIDE RECORDS SUMMARY | 2025-03-16 10:27 | XMS_ITS | Encounter Summary ---
Author Organization [facility] Address [address] [place] [address] Phone Care Team Providers Care Pastoral Worker Name Role Phone Enzo Vasques DO Primary Care Provider [phone] Encounter Details Date Type Department Care Team (Late st Contact Info) Description 01/07/2024 Patient Risk Score [facility] [place] [address] [place] [address] Social History Tobacco Use Types [...] Description 07/12/2025 3:00 PM EDT Office Visit [facility] [address] [place] [address] Dominick Barbosa MD [address] [place] [address] 01/17/2026 3:15 PM EDT Office Visit [facility] [address] [place] [address] Dominick Barbosa MD [address] [place] [id number] documented as of this encounter Visit Diagnoses Not on filedocumented in this encounter Additional Health Concerns Assessment Noted Time A fall risk assessment has been complete d for the patient 09/02/2023 3:31 PM EST documented as of this encounter Care Teams Pastoral Worker Relationship Specialty Start Date End Date Enzo Vasques DO PCP - General 09/21/19 documented as of this encounter
--- OUTSIDE RECORDS SUMMARY | 2025-03-16 10:27 | XMS_ITS | Encounter Summary ---
Author Organization [facility] Address [address] [place] [address] Phone Care Team Providers Care Show Card Writer Name Role Phone Enzo Vasques DO Primary Care Provider [phone] Cristiana Triplett WINDOW TREATMENT INSTALLER-FILL MANAGER Unavailable [phone] Encounter Details Date Type Department Care Team (Late st Contact Info) Description 05/15/2023 Scanned Document [facility] [address] [place] [place] [address] Conversion, Onbase Social History Tobacco Use Types Packs/Day Years [...] Description 07/12/2025 3:00 PM EDT Office Visit [facility] [address] [place] [address] Dominick Barbosa MD [address] [place] [id number] 01/17/2026 3:15 PM EDT Office Visit [facility] [address] [place] [address] Dominick Barbosa MD [address] [place] [id number] documented as of this encounter Procedures Procedure Name Priority Date/Time Associated Diagnosis Comments SURGICAL PATHOLOGY EXAM 05/15/2023 documented in this encounter Results * SURGICAL PATHOLOGY EXAM (05/15/2023) Narrative 05/15/2023 Ordered by an unspecified provider. us Onbase Conversion LAB PATHOLOGY ORDERABLES Final Result documented in this encounter Visit Diagnoses Not on filedocumented in this encounter Care Teams Show Card Writer Relationship Specialty Start Date End Date Enzo Vasques DO PCP - General 09/21/19 Cristiana Triplett APRN-FILL MANAGER [address] [place] [address] PCP - Cyndie ENCISO PCP 09/04/23 01/03/24 documented as of this encounter
--- OUTSIDE RECORDS SUMMARY | 2025-03-16 10:27 | XMS_ITS | Encounter Summary ---
Author Organization [facility] Address [address] [place] [address] Phone Care Team Providers Care Tight Cooper Name Role Phone Enzo Vasques DO Primary Care Provider [phone] Cristiana Triplett VETERINARY PRACTICE MANAGER-JOB RECRUITER Unavailable [phone] Encounter Details Date Type Department Care Team (Late st Contact Info) Description 11/07/2023 Patient Risk Score [facility] Care [facility] [address] [place] [address] Social History Tobacco Use Types [...] Description 07/12/2025 3:00 PM EDT Office Visit [facility] [address] [place] [address] Dominick Barbosa MD [address] [facility] [address] [place], [place] [id number] 01/17/2026 3:15 PM EDT Office Visit [facility] [address] [place] [address] Dominick Barbosa MD [address] [facility] [address] [place] [address] documented as of this encounter Visit Diagnoses Not on filedocumented in this encounter Additional Health Concerns Assessment Noted Time A fall risk assessment has been complete d for the patient 09/02/2023 3:31 PM EST documented as of this encounter Care Teams Tight Cooper Relationship Specialty Start Date End Date Enzo Vasques DO PCP - General 09/21/19 Cristiana Triplett APRN-JOB RECRUITER [address] [place] [address] PCP - Cyndie ENCISO PCP 09/04/23 01/03/24 documented as of this encounter
--- NOTE | 2025-03-16 11:04 | PM.CN ---
Consult Note: HPI Data of Consult Patient: known to practice within the last 3 years Requesting Physician: Shaneka Pena NP Primary Care Provider: Enzo Vasques DO Family Provider: Enzo Vasques DO Consult Narrative Reason for consult: low back pain Narrative: Wlae heredia pleasant 24 year old male presents for evaluation of low back pain. recently underwent bilateral L4/5 L5/S1 facet RFA with 50% improvement ongoing. pain 2/10 intermittently increasing to 6/10. finds benefit to flexeril and tylenol PRN. 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 - Personal history of other benign neoplasm (ICD-10) Sleep apnea ?G47.30 - Sleep apnea, unspecified (ICD-10) Asthma ?J45.909 - Unspecified asthma, uncomplicated (ICD-10) Pre-diabetes ?R73.03 - Prediabetes (ICD-10) Surgical History (Updated 09/07/24 @ 08:22 by Holly Campbell, ARELIS) History of sinus surgery ?Z98.890 - Other specified postprocedural states (ICD-10) Meds Home Medications and Allergies Home Medications ?Medication ?Instructions ?Recorded ?Confirmed ?Type metformin 850 mg tablet 850 mg PO DAILY 07/04/24 02/13/25 History baclofen 10 mg tablet 10 mg PO BID 07/28/24 02/13/25 History meloxicam 7.5 mg tablet 7.5 mg PO BID 07/28/24 02/13/25 History cyclobenzaprine 10 mg tablet 10 mg PO TID PRN muscle spasm #90 12/22/24 02/13/25 Rx tabs gabapentin 300 mg capsule 300 mg PO .qhs #30 caps 12/22/24 02/13/25 Rx amlodipine 5 mg tablet mg 01/10/25 History Allergies Allergy/AdvReac Type Severity Reaction Status Date / Time No Known Drug Allergies Allergy Verified 02/13/25 08:23 Exam Constitutional Documenting provider has reviewed patient's vital signs: yes Common normals: no apparent distress, oriented x3, healthy appearing, alert and well nourished General appearance: cooperative HENMT Common normals: normocephalic, hearing grossly normal bilaterally and moist oral mucous membranes Head and scalp: normocephalic Eye Common normals: PERRL Pupil: PERRL Neck & C-Spine Common normals: full ROM General: normal visual inspection Chest Common normals: inspection of chest normal Respiratory Common normals: normal respiratory effort, no retractions and no use of accessory muscles Back & Pelvis Lumbar spine/lower back: straight leg raise negative bilaterally; ROM not limited, no pain with ROM and no lumbar spinal tenderness Other: negative facet loading sensation intact BLE strength 5/5 in BLE Neuro Common normals: oriented x3 Sensorium/orientation: alert Psych Common normals: mental status grossly normal, thought process normal, cooperative, affect normal, speech normal and activity/motor behavior normal Speech: normal speech Thought process: normal thought process Results Additional Findings Additional findings: If on a controlled substance or opioids, I have checked an [place] report on this patient and there are no aberrancies noted in the prescribing history.??If on a controlled substance or opioid a drug screen was completed and reviewed within the last year, and if there has not been a drug screen completed we ordered one today to monitor higher risk, state monitored pain medication use. As part of providing excellent, safe, comprehensive care, the following was completed at our patient's visit: 1. A medication reconciliation and review to ensure accurate knowledge of current/active medications, including asking our patients to inform us about any [id number] medications or herbal remedies/nutritional supplements/alternative remedies. 2. A review to specifically ensure our patients have had annual screening for screening for depression, screening for tobacco use, and screening for unhealthy alcohol use. For concerning screenings had a discussion with the patient, provided patient education, and recommended follow-up with primary care provider when appropriate. If patient noted with a risk of falling, they received education on strength, gait, and balance training to prevent future risk of falling. Portions of this note may have been carried over from the previous visit and updated as appropriate. Please note this office utilizes paper charting in addition to the electronic medical record. A list of current medications, vitals, and PMH is available there as the clinical staff outside of myself do not have access to [facility] charting during the clinic day operations. As part of providing quality comprehensive care the current medications, vitals, and PMH were reviewed in the paper chart. Assessment and Plan Assessment and Plan (1) Lumbar spondylosis: Plan 24 year old male with chronic back pain secondary to lumbar spondylosis, status post bilateral L4/5 l5/S1 facet RFA with 50% improvement ongoing. continue flexeril 10mg TID PRN pain/spasms. continue HEP as tolerated. f/u 6 months, sooner if needed
== END 2025-03-16 10:26 | disposition home or self-care (01) ==
LOC: PM 10:25
PROVIDERS: Family Provider Internal Medicine; PCP Internal Medicine; Visit Provider Nurse Practitioner
DX: M47.816 Spondylosis without myelopathy or radiculopathy, lumbar region (principal)
CPT/HCPCS: G0463

== ENCOUNTER 2025-06-03 08:07 | Outpatient (OUT) | payer BC, SELFPAY ==
--- OUTSIDE RECORDS SUMMARY | 2025-06-03 08:10 | XMS_ITS | CCD ---
Author Organization [facility] Care Team Providers Care Job Placement Counselor Name Role Phone Enzo Coleman Unavailable Unavailable Unavailable [place], DR GIRALDO Admitting [...] Dr. Enzo Diallo Primary Care Dollyvai labfred Coleman, Dr. Enzo Diallo Primary Care Stephy Barbosa, Dr. Dominick Talavera Attending Dolly vailable Familia, Dr. Dominick Talavera Referring Dolly vailable Familia, Dr. Dominick Talavera Referring Dolly vailable [place], Dr. Enzo Diallo Primary Care Stephy Barbosa, Dr. Dominick Talavera Attending Dolly vailable Familia, Dr. Dominick Talavera Attending Dolly vailable Familia, Dr. Dominick Talavera Referring Dolly vakeeyl Coleman, Dr. Enzo Diallo Primary Care Stephy Barbosa, Dr. Dominick Talavera Attending Dolly gutierrez Barbosa, Dr. Dominick Talavera Admitting Dolly gutierrez Barbosa, Dr. Dominick Talavera Referring Dolly keshianathanieldanuta Coleman, Dr. Enzo Diallo Primary Care Dollyshilpi barlowfred Coleman DO, Enzo Diallo Primary Care Provider U navailable [place] SHER, Enzo Diallo Primary Care Provider Enzo Coleman DO Primary Care Provider Uziel UTILITY AIDE-ROUNDING MACHINE OPERATOR, Cristiana Jose Unavailable Enzo Coleman DO Primary Care Provider DOMINICK BARBOSA Attending Unavailable ENZO COLEMAN Primary Care Unavailable DOMINICK BARBOSA Attending Unavailable ENZO COLEMAN Primary Care Unavailable DOMINICK BARBOSA Attending Unavailable ENZO COLEMAN Primary Care Unavailable DOMINICK BARBOSA Attending Unavailable ENZO COLEMAN Primary Care Unavailable Kentrell HUBBARD, Andanita Durán Attending Unavailable Giedraitis , Andrius Vlyn Attending Unavailable Giedraitis , Andrius Vytautricardo Attending Unavailable Giedraitis , Andrius Vlyn Attending Unavailable Gireno HUBBARD, Andrius Durán Attending Unavailable Enzo Coleman DO Primary Care Provider Enzo Coleman DO Attending Provider Allergies Allergy Classification Reported Allergen(s) Allergy Type Date of Onset Reaction(s) Facility (8 sources) bee pollen Allergy to substance (finding) -Otolaryngolog [facility] Work Phone: (1 source) patient allergy list reviewed by nurse or physicia Propensity to adverse reactions 6 Comment:Done [employer] Other Medications Current Medications Medication Drug Class(es) Dates Sig (Normalized) Sig (Original) amLODIPine 5 mg oral tablet (4 sources) Dihydropyridine Calcium Channel Sharon Start: 12-20-2024 take 1 tablet by mouth once daily Amlodipine 5 mg tablet Active 0 .ROUTE .COMPLEX 90 December 20, 2024 7:06am TAKE 1 TABLET BY MOUTH EVERY DAY Complies with drug therapy Start: 09-14-2024 End: 12-20-2024 take 1 tablet [...] Complete cyclobenzaprine hydrochloride 10 mg oral tablet (2 sources) Muscle Relaxant Start: 01-16-2025 take 1 tablet by mouth three times daily as needed Cyclobenzaprine 10 mg tablet Active 10 MG PO Three times daily as needed January 16, 2025 12:00am Complies with drug therapy gabapentin 300 mg oral capsule (2 sources) Anti-epileptic Agent Start: 01-16-2025 take 1 capsule by mouth once daily at bedtime Gabapentin 300 mg capsule Active 300 MG PO Daily at bedtime January 16, 2025 12:00am Complies with drug therapy metFORMIN hydrochloride 850 mg oral tablet (10 sources) Biguanide Start: 02-14-2025 take 1 tablet by mouth once daily Metformin 850 mg tablet Active 0 .ROUTE .COMPLEX 90 February 14, 2025 6:46am TAKE 1 TABLET BY MOUTH EVERY DAY Complies with drug therapy Start: 06-16-2024 End: 02-14-2025 take 1 tablet by mouth once daily Metformin 850 mg tablet Discontinued 850 MG PO Daily June 17, 2024 3:44pm February 14, 2025 6:46am mometasone furoate, bulk, 100 % powder (5 sources) Start: 09-03-2023 mometasone fur oate, bulk, 100 % powder Indications: Other chronic sinusitis Compound 2 mg capsule to be added to sinus rinse twice daily. 180 g 3 09/03/2023 Active telmisartan 20 mg oral tablet (3 sources) Angiotensin 2 Receptor Sharon Start: 05-14-2025 take 1 tablet by mouth once daily Telmisartan 20 mg tablet Active 0 .ROUTE .COMPLEX 90 May 14, 2025 5:43pm TAKE 1 TABLET BY MOUTH EVERY DAY FOR 30 DAYS Complies with drug therapy Start: 01-16-2025 End: 05-14-2025 take 1 tablet by mouth once daily Telmisartan 20 mg tablet Discontinued 20 MG PO Daily January 16, 2025 12:00am May 14, 2025 5:43pm Completed/Discontinued Medications Medication Drug Class(es) Dates Sig [...] 25-Aug-2022 Complete cefuroxime 500 mg oral tablet (3 sources) Cephalosporin Antibacterial Start: 08-08-2024 End: 01-16-2025 take 1 tablet by mouth twice daily Cefuroxime Axetil 500 mg tablet Discontinued 500 MG PO Twice daily 17 04August 08, 2024 1:00am January 16, 2025 4:15pm nabumetone 750 mg oral tablet (9 sources) Nonsteroidal Anti-inflammatory Drug Start: 06-03-2024 End: [...] 18-Feb-2022 DO Start : 18-Feb-2022 Complete Semaglutide (5 sources) Start: 09-14-2024 End: 01-16-2025 Semaglutide (Ozempic) 0.25 m g or 0.5 mg (2 mg/3 mL) pen injector Discontinued 0.25 MG SUBCUT every week 1.472 September 14, 2024 1:00am January 16, 2025 4:17pm for 4 weeks Start: 06-09-2024 End: 06-16-2024 Semaglutide (Ozempic) 0.25 m g or 0.5 mg (2 mg/3 mL) pen injector Discontinued 0.25 MG SUBCUT every week 3 June 09, 2024 12:00am June 16, 2024 10:01pm [...] Onset: 06-17-2013 Chronic Diabetes mellitus without complication (7 sources) Hyperglycemia; Translations: [Hyperglycemia, unspecified] 06-08-2024 Episodic Essential hypertension (4 sources) Hypertensive disorder; Translations: [Essential (primary) hypertension] [...] 05-15-2023 Episodic Other and unspecified benign neoplasm (2 sources) Benign neoplasm of sphenoidal sinus; Translations: [Benign [...] Chronic Other nutritional; endocrine; and metabolic disorders (6 sources) Obesity; Translations: [Obesity, unspecified] Onset: 06-17-2013 [...] Spondylosis; intervertebral disc disorders; other back problems (7 sources) Other intervertebral disc degeneration, lumbosacral region; [...] Translations: [ABNORMAL POSTURE] Onset: 03-25-2022 Episodic Unclassified (5 sources) Onset: 09-02-2023 Resolved: 01-11-2025 09-02-2023 Viral infection (1 source) COVID-19 Results Test Name Value Interpretation Reference Range Facility Surgical pathology studyOrde red By: Claudio Ireland on 01-18-2025 Laboratory comment Pasquale (Report) z8ajvTYsPDYol1qgTCVtyUVgN zEwMzNcZnRuYmpcdWMxIHtccn ZrEXvyv9WlL6FrFfMaVMzortY tMIJbPlepakwmJIDsBII7paLy UELdNSxwOLEwSFjjIk0oqCVys XzwWkBvCYLai8gktzJBDHgvXW QDNJp9q5oqYSRfCdG0fIRaEJu xT5vndsJsmNPjT9Tdn7WlRQa9 kI48OEKuuV4kjRDgCCznojPnO jR8SPhsCEMdHyL4NWOelWMyXZ JyK5gpKENdNOfgVOIvUVehdVT xAJM0tAlfx2S9sYGpyFBjiQuj MuRwGtZcXaWRm6MaAVo8hGcfO 9QgHMOlQzO1kGMaRMTvAQbaZS VhLOWyahX3uQ63BIpqywS4dXF qu5Wxk96rv845vY2zaHSjTNP7 OKRjGHQqsVJxUMIhENW3GRIts GTaB1yjXoFmpXEuO7PxQlDyjE RnN3AoNsHfsNVtN9JzUsPnqXK aFDLgdJT9CDhub589XBA3OuMx RW7rE2Gto9O8vU8waZYxPZTdw HCeHcBbETNqbw2rvEKxVPpdq6 XxPEG5frG7pHEbxTJmDCZqUW5 7Mouid8SlFwbnAUN6KWZglsHp l0Avd5nxClBpzuZeK6gkX8AqS TEgVKVhMKBfWaZtqpKrz2Zfu1 ZgoHBuxDe7p3dpNMAeOWNvzHh tx6dxWLT1NXQzJ6G0fRZau9zd BNxjBHDauXZ5xoL6NXqqREIpg tB4jhS7ZZeeOQHncIZ0xaP6HW jwVYUhFsR4ewQ3CFltKTImOWV 0WgIkWLSfp3SuwhvdTfYag1Le zITiMCpeO48ze685HHOhjcYyH 1xwbGFpblxwbGFpblxmMFxmcz N8SPVnWLAeRTpbVQIcJBYqHkB cbGFuZzEwMzNcaGljaFxmMVxk XwGnLKFgXSlfL6vjKsFkAeRcH REItMZ1pBUpm7ypryN3pBKbNG 3jTDZqkIPillPrk9W9ONH7fXG iuU2dtHMcFHRleLHbtaLiky99 mESolJS2UUKyQRLzxQBdxM0wR MNvJEBJxM1gcOBGvpXazoLpUX FaaZunbg8CiNYvjl6sjJVtZ9T ydGlmaWVzIHRoYXQgdGhleSBo JFWcPUIqdivym9VaHBUmxRSsU 4IeIN1zUVDlxk70 [facility] Work Phone: Pathology report Cancer Narrative Surgical Pathology Case: [id number] Authorizing Provider: Dominick Barbosa MD Collected: 01/11/20250 Ordering Location: [facility] Received: 01/11/2025 162 Pathologist: Claudio Ireland MD Specimen: SINUS MASS RIGHT [facility] Work Phone: Pathology report final diagnosis Narrative s3ajuXXuELGdpLIsUFPcIXhkm lVzJSBkbNLrR8YgomcpYPdtHS 6sKG3omSkrpTMffTKxWPVrTuJ op7mgm942oILvd1wlYZQQmcdj pRc0nJruD98hu6E4EvfkS0ycT YMpGFdaTQShCItarXPkNYx5UQ BhcGVydzEyMjQwXHBhcGVyaDE 4TVQyKP3ataxjUXjfUVrlRQCd duZ6CKCedILmS5NtSJBxOD1ph pvtVMS3EYuvRSUlNZQ0FyPwXX Jov0Aeevk6MtFmwTt8u9jlZOI gVEGmkOuto0rhEOT2LJFfxDWv G6uhuO2qFOIhRQ9vymejm8qxR WqoWSxhIBWniVN2bwL1LRWngW ZyU2SuiE2qYUCaXMMcrhJznVk yyL1yBfKoDoarWjQuDbwhzAOq d6dtyMFrrWIsxguhcMSaJKZjS OZpuHXuH4dxy90ik9VrUKDhoO mouS9cUXqchL71CNE5CHLkrIk zPJdweB97f0l5bM6rAUJiHFfl HijtdZ6kbW1hzVNdmX7qvpCsA QaauJ7tgCXqLUXxxmqzrcUnk1 igTF9hHBstX6jsN6DbUBExWSv blEzqy4htII9cZDdcduTozJUz HKRuiuWxub4lDBFzPOKrpVdpx AOtEbkqHKCqDB4nVQYuYWBCg5 J0wS2uMN9uRSLoobMjh1u7xCG ojqYkqWrsmWJmB6WdkFElDNPg b9dlH7tgPPGllqGhmgjwQhjeK SOouCObDDkmw8xkKSO4 [facility] Work Phone: Pathology report gross observation Narrative v8tvvGCcSHJegWIBPEX9TXGrT C5vdJvecEu0nEyaVPHjrtU7uJ KkXVmmf1klZOX6f9ddxpNABid qQCTyDE1mMRmtGPXeFE8kTySg XGRlZmYxXHBhcGVydzEyMjQwX IJbdPUxzRO2HNJyZE6ymgquVX xyQNuhWJAejgR5FJLjqPAwL9V xZUDyFR7awhvkJYZ0PEVJDwun Qb5iiXEhbPKRLqlmCtTjNoXeU XCaHEXjDUGhb0zeweORSPboYQ CODOt0ZDm4OCBlGABbfNHcs1M 1JZuuz8vrd2TvKOUhFFz1wV3B NxrzGNI2AOQXDkfzRvffqRapp 2VjdCBcXHNnIFxcaWQgNTEwMD DbKFykXiBTFjEyVnErGyf0QEW 1RJMzKGg0AFdbTiQZOJLoHUD4 TVMlODb4EKevWUfjhNVvAKOnL ODgUCVsABefdcM6x9hiLABdqH HnDEL4AFema2goKLxwVVQ9FMR rBrCdIGDyRD4XSmLnEEW6DXA2 KLo1YaC7PRo0AHYECpWjXdBiV Dx2NeZ4DwGjOEj3ZDs4IJiZYw VuGXtuVHx2IXD8ZRZ9NcO5LOl hnyraJNb2JXJtKRjdlfRnCBby PozwETroL27rnPErCBPTXzobg GFpblxlcGljTmVzdERvYzEgDQ daqBWyaGYqPC5WXUk1soOlQIL kNVJaRvIzQfErUDf1EJVcfF1v Ij1hxIDacO7zZHcwDeCxHXMof 1m4oSV9qOTboZB9mDWyqTlgFU 8hxPEjCJ9rPKrsl1QawVRlYF9 4kSMuimRmxyKfKyMlbaPmAF9r a3AxqwtzrPUdWPAvuhUbURHif Xrwu9pgCIWlS11xdjBlx9EmcJ QjVJcvuGKgHAFiKcSyoQwrg2C nPI4pGRV7sqeqLwEoHtImnSZu LpzuiDIcGfbfO58lVGJFaONxm PBwh9XpVPWzhKBcO1ypUL0cPO Mpx5RxuMaaupGnhyNhvhttJFM zxBTjKDBhDFD2xONhn8ZyN0lm IY8ujZWmIuneSXH7BBWuYYMIk IOso5KhY1mkOP2abNEfDK47zY XzaHern2YoiRm3pSViBOquKK6 rUVPdSHWoESO2PJ0wrAQyUW1X SZUhZpUpGCHpF5fwFKXmCJ3OF 24OADcnDVDbH39dl2OLn2Xkn2 wsaFwzq6CzeYExFS03PBJopGY bPLI7VN4cdYazWOByKEhvsBSl ZCANClxwbGFpbiANCn0= [facility] Work Phone: Pathology report relevant history Narrative d2ccbPAgNGLrs0nvFNJiwTAyI yYjJqKbQmEcUwf0OWVahgZ6Fd h7IQNdHZdofW1hWXTmGFlyL1f xdbJvnXLqQVCmFMo6fG6ciQgn bB1fZpUfJsLqSFLCgZjklw0sY RDpNPWhphBduMOqh7jlQQVddD == [facility] Work Phone: [facility] Work Phone: Surgical pathology studyon 0 01-11-2025 Surgical pathology study Pathology report.total SEE COMMENT Surgical Pathology Case: [id number] Authorizing Provider: Dominick Barbosa MD Collected: 01/11/20251619 Ordering Location: [facility] Received: 01/11/2025 1620 Pathologist: Claudio Ireland MD [...] specimen is entirely submitted in one cassette. [facility] Surgical pathology studyOrde red By: Shakir Ford on 07-19-2024 Laboratory comment Pasquale (Report) y9zbrTAgWRXpa7auKFLhhECxK zEwMzNcZnRuYmpcdWMxIHtccn TxZVwwo2VgV8KcDxPtFDtkmgO uOEDwLjibaqqqJJEzHVJ3fsLj XXPtBFniJANbZLliTx1rgIBol RcaYxDqGRQdk6wljwGEGBpwKK NVWOj4g1lmJHYtBjF4zZJoBFy vX3pdisJzkTVaU6Jwu6WgFUy3 wY29DPHenH5arHMbGOzqsdZkV cD6UQfzWQOuRqA3JMLtbUVxHC VpP5anAICmBWxoQJPnQJutiPK bNTF4fUfir3D6hSKbuYNgtTtx GgRuRzNqXdSSb2AnLQr3aZnfA 8WkABJcQjJ6yHHpISAaOPpcZG PoBBWrrgS0oB79TOrkqsY9cPB fs5Gvb59va826eD9rpSWaGZW1 CAGvWVVmrNUqSPNeSUN9FEHsm TPlL3kzMsLuwTDuZ4QyWrLipB HaN4WxHtPmnAChZ0DaFdKxxXF lOQWjwEP2XRmia111LGM9EwUe GV7hU3Pct0X9wE1ojLHsIPJpi XWxIcIkXFDbdh7qjAUjUMnju9 BdRHB4tdB2bQQbyHJkRBBgBA9 7Cbbuv5TpKvzqHFZ0NXSctqFs t4Lhf6owLcDczuXqG5axS1OfJ FPeGMCdTUWcVwDsytXnb5Kdb0 PjsEPsfHj4x3rrNKBiIDIglOp vy5abHCK7UDToB2U4xZHyr6ak YPpwAYPxnXY7sgI5HZqbBYBfh cS4xtG6TMlqZIRqdTQ2vqW9LC ctTCJgYkM4yfM2KHpcQWFfSIG 5IySoWYRkm9NavyaqFvBwa6Po kBVmCPqqX66jd326CRUvlpLiU 1xwbGFpblxwbGFpblxmMFxmcz P9OAVtXAIbVBnxIAUwYBYeHmN cbGFuZzEwMzNcaGljaFxmMVxk UmTzCJOlKBjvH3nyKjEnUsDfB WNJkJL0fSUbz2kaerR4uUIhYU 1yEFQwoVXyxeZmb4D2OTJ1cOH imJ1wpWKyLQGxnKAbboUjmc64 lSPjhAH0BMIvOAYlrJKquB2bY DHdNTPUlI3hyLVSuvJpltPvIQ BaiBoqfj1WgKJzgd7ooVYlO8J ydGlmaWVzIHRoYXQgdGhleSBo TDTaFYGayfbqj7JrTMEffQMdC 3GkHP9dVUCmvd40 [facility] Work Phone: Pathology report Cancer Narrative Surgical Pathology Case: [id number] Authorizing Provider: Dominick Barbosa MD Collected: 07/13/2024 1405 Ordering Location: [facility] Received: 07/13/2024 1405 Pathologist: Shakir Ford DDS Specimen: NASAL MASS RIGHT BIOPSY [facility] Work Phone: Pathology report final diagnosis Narrative y7wqnKByJHBwrUSbERbkDgqlb eIqKMBfeQCqF4BtymslBOuuMS 7zMK0fxAfuvAIzqVYxERPwBzL ba8zxn501iXVme2stPPUCswqy qGi1pOmaN18ql7U9EchiT0uxF UYrHQflNHBiXFyauYOzYOp2WE BhcGVydzEyMjQwXHBhcGVyaDE 4ZWOoRV5ggijxMMnpDFblAAWx wjD2WJApaEKrU1MsEATmLO1bc orjXLI9CVctZITfXTN8NzBxRS Cmj5Lzhvz5AkTknSb5u1bpDQA fOOSzaXrfb5suHKY4WTPbwHQj B9mzwW2cWHIfVS3wgrabw4koY GuaJLxcPJGnqLL2rlT3ZRIkgY RiH1UnfR7dAFJsOTEhvrUzuWn isG0aQsFmEmkxUeEoMwVcMRyu F5Y1xLF8PRYywPsrwVLwSVExY GUfpT6tf7e7ZNSjrkhcfzMys0 foXZJwze3jGFJqlIIdoWVfi9U bYK7dEPNcwr5ayFVzqN0mlJAh tQY7vL0vYXusmJllDHPutAS9m 3NuDHW3rm1lLHfrC52uy1vkmI FazRD6vBTvKYJaqi8lQQLwiYX csgNrPR4sOBDhppsysT2ecCBs XHBhcn0= [facility] Work Phone: Pathology report gross observation Narrative n2ssxNJwENVfsPPWKGX2ZTIoX A4ynBbfsXc7eIsaDHLiewO7cB NrDGivi0caMHH0a3cqmjJZMdo gOCZiKS1nCTvqHZSrEO5cIwLx XGRlZmYxXHBhcGVydzEyMjQwX RQjwIZggFJ1TYNbCS5mvbspUP uuBZqqFQJdcrN6YUNmxDMdJ6H zFLJjSE5gjcatDRJ0XPUQOmme Ly5deUUhrSGBIymwCqKpZmAdL FWxDQReOGVap3kklsEVXEdaHT ATJKb5HMn7OOEqFCQsqDAvi8H 4VMepa5vdc5WjGHTsYYk9iP5I LqkqCAH7WEHNLtqvAxlsnKgxp 2VjdCBcXHNnIFxcaWQgNTEwMD TpYEifFiLYJqDvErBlZVV2PWp 9OxWuOCj8OBacQpQSZMA9YNd4 KtywINy2HSrwEAdshGWwXSTqE VEpUSYdPQsevfT9j1pcJDWgcA OkJUD4EWbpb1kfSSbqFJW5ACK iReXqRVXnPV6YHwCoAAI9FlZ3 UqjcEqC6YXc9GLACTtXsGiFoJ FFwHiv2WRdxZTo3TPy6SIeYPr LtVOV1UnUoTZUvZFU4NCX4JGu hbfsoNEl0UIHuTVgfynNtKIbd SptlGTakJ94fjGLgDWTWTfnvn GFpblxlcGljTmVzdERvYzEgDQ chcNNohCXySX4FPXj1sqUhBFH aUEGtOcMkFDseAkSgHXl9WEWh vX2jFh9qlKJmvI5fWJvaLkHaK OGjo7h2uZQ8rFTulNT0uKQuoY jbES0dcZJzPA0uGGhxv8HydFQ jHX63mNMdweAkkcOnJl6rm0Ve HW7hm7OdAlwjdRX7KECvE4l7S itjXQWhVG44cEJgvVzuUUSbvf LvL2JxLEYgd4FqcMEmwSKwk7H gdGFuLXdoaXRlIHNvZnQgdGlz h0OpRUDzO0LeR8V4yR9dYSOrH NViTFH8EYYgXnO8PQWrPHHqoB 7pQOVyBSGctJIipI5cirPwzdS qmSFgsAU3FXVhhU9nhV71cbFl zkNxgrArV2God1J6rJOdUBPvo kAIYipoRCPsSNGmcIQQt7DuEW XCVcKDHu8NJXDifZWBLTG4OH6 mKWntLWSnZ1FeX8VfwqC3v9dm eDprv0HxeMHmYM6oeDRvAM9JL ZBesqNoRQpluSrrwV5yBLq5 [facility] Work Phone: Pathology report relevant history Narrative m1yzfUEbOWSks3tsENJggDGvA kZcKvFuTvFyXgd8ACFatbH0Xi b5RRYfOKflsX6yNWChELvvC0m mqeWlwFWbLOCiVGm8jY5agPol wQ3qLgIiYdOnHNAzxGFxalgvU N6guQkncXNngEZweL78c9o7pB NccGFyIH0= [facility] Work Phone: Resident Review b8grzSTrCHSsgHGuFRjc Mlxhb bUdLHFcwVKiO3KzqgjbNRfaCY 8gPJ8boYitzJDpdRRbDPJpCxE vq2lpu664wNFdq3kfACHVkuaj oLh3cIhxU72ur9E2EnykL85or EFbNVL4HYAqASFyjQLiNEQbHD L8MQEpfKTnL9ipVTZpFM0zlfx mCLjkWGhfBRUtgJD7ZVQvrDQl W5WfJLDjFCmcIJYzgey4UsUiT e1jvPPqsSljUOslVZVrOGTdIZ foGDBlPwOtGEhcCBdmg8KaYBD wZX7iepJptYYmt3Ziq1WwKkDt pK5rrQ5lkfD1XNTiHWSnwtljj 2XoPGmxEDZaqlt4poA9eN4dDY ujlVmtbLR0vR7gi0f8SVWft2k qWJ35AXIXKY8moGWfW8HmuL3d JEKFBI2fyYRlKBJjbqPsyMNeg Q== [facility] Work Phone: [facility] Work Phone: Surgical pathology studyon 1 Surgical pathology study Pathology report.total SEE COMMENT Surgical Pathology Case: [id number] Authorizing Provider: Dominick Barbosa MD Collected: 07/13/2024 1400 Ordering Location: [facility] Received: 07/13/2024 1405 Pathologist: Shakir Ford DDS [...] is submitted in toto in one cassette. [facility] Basophils Auto (Bld) [#/Vol] on 06-08-2024 Basophils (Bld) [#/Vol] 0.1 10 3/uL 0.0-0.1 [facility] Basophils/100 WBC Auto (Bld) on 06-08-2024 Basophils/100 WBC (Bld) 1.2 % 0.2-2.0 [facility] Cholesterol in LDL Calc [Mas s/Vol]on 06-08-2024 Cholesterol in LDL [Mass/Vol] 66.0 mg/dL [facility] Comment on above: <100 mg/dl [id number] 0-129 mg/dl NEAR OR ABOVE [id number] mg/dl BORDERLINE [id number] mg/dl HIGH>190 mg/dl VERY HIGH Cholesterol in VLDL Calc [Ma ss/Vol]on 06-08-2024 Cholesterol in VLDL [Mass/Vol] 43.0 mg/dL [facility] Eosinophils/100 WBC Auto (Bl d)on 06-08-2024 Eosinophils/100 WBC (Bld) 3.1 % 0.9-7.0 [facility] Erythrocyte distribution wid th Auto (RBC) [Ratio]on 06-08-2024 Erythrocyte distribution width (RBC) [Ratio] 13.0 % 11.0-15.0 [facility] Estimated glomerular filtrat ion rate (GFR) non- Americanon 06-08-2024 GFR/1.73 sq M.predicted among non-blacks MDRD (S/P/Bld) [Vol rate/Area] mL/min/{1.73_m2} >=60 [facility] Globulin Calc (S) [Mass/Vol] on 06-08-2024 Globulin (S) [Mass/Vol] 4.1 g/dL [facility] Glucose mean value [Mass/vol ume] in Blood Estimated from glycated hemoglobinon 06-08-2024 Average glucose Estimated from glycated hemoglobin (Bld) [Mass/Vol] 128 mg/dL [facility] Hematocrit Auto (Bld) [Volum e fraction]on 06-08-2024 Hematocrit (Bld) [Volume fraction] 45.3 % 42.0-54.0 [facility] Hemoglobin [Mass/volume] in Bloodon 06-08-2024 Hemoglobin (Bld) [Mass/Vol] 14.6 g/dL 14.0-18.0 [facility] Laboratory - Chemistry and C hemistry - challengeon 06-08-2024 Albumin [Mass/Vol] 3.6 g/dL 3.4-5.0 [facility] ALP [Catalytic activity/Vol] 86 U/L 46-116 [facility] ALT [Catalytic activity/Vol] 46 U/L 16-63 [facility] AST [Catalytic activity/Vol] 27 U/L 15-37 [facility] Bilirubin [Mass/Vol] 0.5 mg/dL 0.2-1.0 [facility] Calcium [Mass/Vol] 9.3 mg/dL 8.5-10.1 [facility] Chloride [Moles/Vol] 100 mmol/L 98-107 [facility] Cholesterol [Mass/Vol] 147 mg/dL <=200 [facility] Cholesterol in HDL [Mass/Vol] 38 mg/dL Low 40-60 [facility] Comment on above: > or =60 mg/dl - LOW CARDIOVASCULAR RISK<40 mg/dl - HIGH CARDIOVASCULAR RISK CO2 [Moles/Vol] 28.7 mmol/L 21.0-32.0 [facility] Creatinine [Mass/Vol] 0.93 mg/dL 0.70-1.30 [facility] GFR/1.73 sq M.predicted MDRD (S/P/Bld) [Vol rate/Area] mL/min/{1.73_m2} >=60 [facility] Glucose [Mass/Vol] 121 mg/dL High 74-106 [facility] Potassium [Moles/Vol] 4.2 mmol/L 3.5-5.1 [facility] Protein [Mass/Vol] 7.7 g/dL 6.4-8.2 [facility] Sodium [Moles/Vol] 138 mmol/L 136-145 [facility] Triglyceride [Mass/Vol] 215 mg/dL High <=150 [facility] TSH Qn 3.486 m[IU]/L 0.358-3.740 [facility] Urea nitrogen [Mass/Vol] 16.0 mg/dL 7.0-18.0 [facility] Urea nitrogen/Creatinine [Mass ratio] 17.2 mg/mg [facility] Laboratory - Hematology and Cell countson 06-08-2024 HbA1c (Bld) [Mass fraction] 6.1 % 4.5-6.2 [facility] Comment on above: ADA RECOMMENDED LIMI T 4.0 - 6.0ADA THERAPEUTIC TARGET < 7.0ACTION SUGGESTED> 7.0 Immature granulocytes/100 WBC (Bld) 0.3 % 0.0-0.5 [facility] Leukocytes [#/volume] correc giselle for nucleated erythrocytes in Blood by Automated counon 06-08-2024 WBC corrected for nucl RBC Auto (Bld) [#/Vol] 7.2 10 3/uL 4.0-11.0 [facility] Lymphocytes Auto (Bld) [#/Vo l]on 06-08-2024 Lymphocytes (Bld) [#/Vol] 2.3 10 3/uL 1.2-3.8 [facility] Lymphocytes/100 WBC Auto (Bl d)on 06-08-2024 Lymphocytes/100 WBC (Bld) 32.3 % 20.5-60.0 [facility] MCH Auto (RBC) [Entitic mass ]on 06-08-2024 MCH (RBC) [Entitic mass] 29.0 pg 25.9-34.0 [facility] MCHC Auto (RBC) [Mass/Vol]on 06-08-2024 MCHC (RBC) [Mass/Vol] 32.2 g/dL 29.9-35.2 [facility] MCV Auto (RBC) [Entitic vol] on 06-08-2024 MCV (RBC) [Entitic vol] 89.9 fL 80.0-94.0 [facility] Monocytes Auto (Bld) [#/Vol] on 06-08-2024 Monocytes (Bld) [#/Vol] 0.4 10 3/uL 0.3-0.8 [facility] Monocytes/100 WBC Auto (Bld) on 06-08-2024 Monocytes/100 WBC (Bld) 6.1 % 1.7-12.0 [facility] Neutrophils Auto (Bld) [#/Vo l]on 06-08-2024 Neutrophils (Bld) [#/Vol] 4.1 10 3/uL 1.4-6.5 [facility] Neutrophils/100 WBC Auto (Bl d)on 06-08-2024 Neutrophils/100 WBC (Bld) 57.0 % 43.0-75.0 [facility] No Panel Informationon 06-08 Eosinophils # (Auto) 0.2 10 3/uL 0.0-0.7 [facility] Immature Granulocyte # (Auto) 0.02 10 3/uL 0.00-0.03 [facility] Platelet mean volume Auto (B ld) [Entitic vol]on 06-08-2024 Platelet mean volume (Bld) [Entitic vol] 10.0 fL 9.5-13.5 [facility] Platelets Auto (Bld) [#/Vol] on 06-08-2024 Platelets (Bld) [#/Vol] 355 10 3/uL 150-450 [facility] RBC Auto (Bld) [#/Vol]on RBC (Bld) [#/Vol] 5.04 10 6/uL 4.70-6.10 [facility] Serum or plasma albumin/glob ulin mass ratioon 06-08-2024 Albumin/Globulin [Mass ratio] 0.9 {ratio} [facility] Serum or plasma anion gap de terminationon 06-08-2024 Anion gap [Moles/Vol] 13.5 mmol/L [facility] Serum or plasma total choles terol/high density lipoprotein (HDL) cholesterol mass maria luz 06-08-2024 Cholesterol.total/C holesterol in HDL [Mass ratio] 3.9 {ratio} [facility] Comment on above: 3.3 - 4.4 [...] reviewed this case. Diagnostic interpretation performed at [facility] [address] [facility] [address] Clinical History: Physician Contact Number: [phone] Fixative (A): Saline Fixative (B): Saline Clinical [...] specimen is entirely submitted in 7 cassettes. [facility] B: Received in formalin, labeled with the patient's name and hospital number and B, microdebrider contents , are multiple, irregular segments of blood and soft tissue aggregating to 5.4 x 3.7 x 1.5 cm. Press Helper sections are submitted in 8 cassettes [facility] Note: Per the pathologist, the rest of specimen B is submitted in toto in 17 additional cassettes. 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 Please feel free to contact my office by calling [phone] with any questions. Provider Impressions 1. Inverted [...] (Please see procedure below.) SINONASAL ENDOSCOPY (CPT 80520): To better evaluate the patient's symptoms, sinonasal [...] free to contact my office by calling [phone] with any questions. Provider Impressions 1. Inverted [...] day Tylenol TABS Vitals Vital Signs Recorded: [id number] 07:57AM Height6 ft [id number] lb 8 oz BMI Qtxkkbfyyy21.81 kg/m2 BSA Calculated2.89 Tobacco Useb) No Falls [...] (Please see procedure below.) SINONASAL ENDOSCOPY (CPT 65258): To better evaluate the patient's symptoms, sinonasal [...] May 27 2023 8:22AM EST (Author) [employer] Tobacco Screening.on 023 Fall risk assessment a) [facility] within the last [facility] Work Phone: Tobacco use status [facility] b) No [facility] Work Phone: Established Visit (Otolaryng ology)on 05-20-2023 Established Visit (Otolaryngology) Diagnoses/Problems Chronic ethmoidal sinusitis (473.2) (J32.2) Chronic maxillary sinusitis (473.0) (J32.0) 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 Please feel free to contact my office by calling [phone] with any questions. Provider Impressions 1. Inverted [...] asked him to reach out to my medical office secretary and we discussed some time parameters [...] TIMES DAILY NEEDED. Vitals Vital Signs Recorded: [id number] 12:20PM Height6 ft [id number] lb 3.2 oz BMI Tmoavmbgxd62.31 kg/m2 BSA Calculated2.91 Tobacco Useb) No PHQ-2 [...] (Please see procedure below.) SINONASAL ENDOSCOPY (CPT 69296): To better evaluate the patient's symptoms, sinonasal [...] Screening.on 023 Adult depression screening assessment No [facility] Work Phone: Fall risk assessment a) No falls within the last year [facility] Work Phone: Tobacco use status CPHS b) No -Otolaryng [facility] 4100 Work Phone: No Panel Informationon 05-15 [facility] Work Phone: Order Reconciliationon 05-15 [...] Once, PRN For SBP>180, DBP>100, HR>60Clinician Notes: Ginaa-operative order ONLY 15-May-2023 11:22 Labetalol Injectable is [...] Assistance Level: (more content not included)... Normal [facility] Patient Profile - Preop v3on 05-15-2023 Patient Profile - Preop v3 Patient Profile - Preop: Initial Info: Patient DemographicsName: WALE MI Date: 2000 Address: [facility] [address], [address] Primary Phone [phone] How to be AddressedDylan Spoken Language PreferredEnglish Stated Reason for Admissioninverted papilloma Primary Contact Name and Numbereve Stern [phone] Limitations on Visitors/Phone Callsnone Medications Brought to Hospitalno General Health: Weight in kg185.1 kilogram(s) Weight in oav047 pound(s) Height in feet5 feet Height in wgqoap58.97 inch(es) Height in cm182.8 centimeter(s) BMI (kg/m2)55.392 square meter Patient or Family Member Reaction to Anesthesiano previous reaction Blood Avoidance/Restrictionsnon e Previous Transfusion Reactionno Health Mgmt: Symptoms/Conditions Managed at Homerespiratory Respiratory Symptoms/Conditionssleep disordered breathing Barriers to Managing Healthnone Relationship/Environ: Lives Withparent(s) Living Arrangementshouse Living Environment Commentsmom Resource/Environmental Concernsnone [place] [facility] Anticipated at Transitionnone Tobacco Use: Tobacco [...] Updated: 15-May-2023 11:21 by Ginny Cohen) Normal [facility] Surgical Pathology Depar tmenton 05-15-2023 [facility] Surgical Pathology Department Name WALE [place] Pathologist: LUBA JEFFERS DMD. [...] reviewed this case. Diagnostic interpretation performed at [facility] [id number] [place] [address] Clinical History: Physician Contact Number: [phone] Fixative (A): Saline Fixative (B): Saline Clinical [...] specimen is entirely submitted in 7 cassettes. [facility] B: Received in formalin, labeled with the patient's name and hospital number and B, microdebrider contents , are multiple, irregular segments of blood and soft tissue aggregating to 5.4 x 3.7 x 1.5 cm. Press Helper sections are submitted in 8 cassettes [facility] Note: Per the pathologist, the rest of specimen B is submitted in toto in 17 additional cassettes. [facility]/05/19/2023 [facility] Department of Pathology [address] [place] [address] Normal [facility] Comment on above: Performed By: #### U HCS #### [facility] Surgical Pathology Department [address] [facility] [address] BASIC METABOLIC PANELon 08-0 Anion gap [Moles/Vol] 16 mmol/L Normal 10 - 20 [facility] Comment on above: Performed By: #### B MP #### [facility] [address] [place] [address] Calcium [Mass/Vol] 9.8 mg/dL Normal 8.6 - 10.6 [facility] Comment on above: Performed By: #### B MP #### [facility] [address] [place] [address] Chloride [Moles/Vol] 101 mmol/L Normal 98 - 107 [facility] Comment on above: Performed By: #### B MP #### [facility] [address] [place] [address] Creatinine [Mass/Vol] 0.81 mg/dL Normal 0.50 - 1.30 [facility] Comment on above: Performed By: #### B MP #### [facility] [address] [place] [address] eGFR MALE >90 Normal >90 [facility] Comment on above: Result Comment: CALC ULATIONS OF ESTIMATED GFR ARE PERFORMED USING THE 2020 CKD-EPI STUDY REFIT EQUATION WITHOUT THE RACE VARIABLE FOR THE IDMS-TRACEABLE CREATININE METHODS. https://jasn.asnjournals.org/content/early/ASN.93287752 88 Performed By: #### B MP #### [facility] [address] [place] [address] Glucose [Mass/Vol] 81 mg/dL Normal 74 - 99 [facility] Comment on above: Performed By: #### B MP #### [facility] [address] [place] [address] HCO3 (Bld) [Moles/Vol] 27 mmol/L Normal 21 - 32 [facility] Comment on above: Performed By: #### B MP #### [facility] [address] [place] [address] Potassium [Moles/Vol] 4.5 mmol/L Normal 3.5 - 5.3 [facility] Comment on above: Performed By: #### B MP #### [facility] [address] [place] [address] Sodium [Moles/Vol] 139 mmol/L Normal 136 - 145 [facility] Comment on above: Performed By: #### B MP #### [facility] [address] [place] [address] Urea nitrogen [Mass/Vol] 13 mg/dL Normal 6 - 23 [facility] Comment on above: Performed By: #### B MP #### [facility] [address] [place] [address] CBCon 05-12-2023 Erythrocyte distribution width (RBC) [Ratio] 13.0 % Normal 11.5 - 14.5 [facility] Comment on above: Performed By: #### C BC #### [facility] [address] [place] [address] Hematocrit (Bld) [Volume fraction] 47.2 % Normal 41.0 - 52.0 [facility] Comment on above: Performed By: #### C BC #### [facility] [address] [place] [address] Hemoglobin (Bld) [Mass/Vol] 14.4 g/dL Normal 13.5 - 17.5 [facility] Comment on above: Performed By: #### C BC #### [facility] [address] [place] [address] MCHC (RBC) [Mass/Vol] 30.5 g/dL Low 32.0 - 36.0 [facility] Comment on above: Performed By: #### C BC #### [facility] [address] [place] [address] MCV (RBC) [Entitic vol] 94 fL Normal 80 - 100 [facility] Comment on above: Performed By: #### C BC #### [facility] [address] [place] [address] NUCLEATED RBC 0.0 /100 WBC Normal 0.0-0.0 [facility] Comment on above: Performed By: #### C BC #### [facility] [address] [place] [address] Platelets (Bld) [#/Vol] 400 10*3/uL Normal 150 - 450 [facility] Comment on above: Performed By: #### C BC #### [facility] [address] [place] [address] RBC 5.03 x10E12/L Normal 4.50 - 5.90 [facility] Comment on above: Performed By: #### C BC #### [facility] [address] [place] [address] WBC (Bld) [#/Vol] 9.2 10*3/uL Normal 4.4 - 11.3 [facility] Comment on above: Performed By: #### C BC #### [facility] [address] [place] [address] Laboratory - Chemistry and C hemistry - challengeon 05-12-2023 Anion gap [Moles/Vol] 16 mmol/L 10 - 20 MG-Otolaryng ology-[facility] 4100 Work Phone: [phone] Calcium [Mass/Vol] 9.8 mg/dL 8.6 - 10.6 [facility]-[place] laryng ology-[facility] 4100 Work Phone: [phone] Chloride [Moles/Vol] 101 mmol/L 98 - 107 MG-Otolaryng ology-[facility] 4100 Work Phone: [phone] CO2 [Moles/Vol] 27 mmol/L 21 - 32 MG-Otolar yng ology-[facility] 4100 Work Phone: [phone] Creatinine [Mass/Vol] 0.81 mg/dL See Below MG-Otolaryng ology-[facility] [place] [address] Work Phone: [phone] Comment on above: Reference Range: 0.5 0 - 1.30 Glucose [Mass/Vol] 81 mg/dL 74 - 99 [facility] laryng ology-[facility] 4100 Work Phone: [phone] Potassium [Moles/Vol] 4.5 mmol/L 3.5 - 5.3 MG-Otolaryng ology-[facility] 4100 Work Phone: [phone] Sodium [Moles/Vol] 139 mmol/L 136 - 145 [facility] laryng ology-[facility] 4100 Work Phone: [phone] Urea nitrogen [Mass/Vol] 13 mg/dL 6 - 23 MG-Otolaryng ology-[facility] 4100 Work Phone: [phone] Laboratory - Hematology and Cell countson 05-12-2023 Erythrocyte distribution width (RBC) [Ratio] 13.0 % See Below MG-Otolaryng ology-[facility] 4100 Work Phone: Comment on above: Reference Range: 11. 5 - 14.5 Hematocrit (Bld) [Volume fraction] 47.2 % See Below [place] [address] Work Phone: Comment on above: Reference Range: 41. 0 - 52.0 Hemoglobin (Bld) [Mass/Vol] 14.4 g/dL See Below [place] [address] Work Phone: Comment on above: Reference Range: 13. 5 - 17.5 MCHC (RBC) [Mass/Vol] 30.5 g/dL below low threshold See Below [place] [address] Work Phone: Comment on above: Reference Range: 32. 0 - 36.0 MCV (RBC) [Entitic vol] 94 fL 80 - 100 [place] [address] Work Phone: Platelets (Bld) [#/Vol] 400 10*3/uL 150 - 450 [place] [address] Work Phone: RBC (Bld) [#/Vol] 5.03 {x10E12/L} See Below [place] [address] Work Phone: Comment on above: Reference Range: 4.5 0 - 5.90 WBC (Bld) [#/Vol] 9.2 10*3/uL 4.4 - 11.3 [place] [address] Work Phone: No Panel Informationon 05-12 >90 >90 [place] [address] Work Phone: Comment on above: CALCULATIONS OF AMANDA MATED GFR ARE PERFORMED USING THE 2020 CKD-EPI STUDY REFIT EQUATION WITHOUT THE RACE VARIABLE FOR THE IDMS-TRACEABLE CREATININE METHODS.https://jasn.asnjournals.org/content//ASN. 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 Provider Impressions 1. Inverted [...] DAILY UNTIL FINISHED. Vitals Vital Signs Recorded: [id number] 01:56PM Height6 ft Pkznez657 lb 9 oz BMI Nbzduhhhve36.63 kg/m2 BSA Calculated2.91 Tobacco Useb) No PHQ-2 [...] Screening.on 023 Adult depression screening assessment No -Otolarynjosef [employer] Work Phone: Fall risk assessment a) No falls within the last year [facility]-Jennifer molina Work Phone: Tobacco use status CPHS b) No ObsEva-Otolarynjosef olmerlyny-[employer] Work Phone: Established Visit (Otolaryng ology)on 01-06-2023 Established Visit (Otolaryngology) Diagnoses/Problems Chronic ethmoidal sinusitis (473.2) (J32.2) Chronic maxillary sinusitis (473.0) (J32.0) Nasal congestion (478.19) (R09.81) 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 Provider Impressions 1. 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 Please feel free to contact my office by calling [phone] with any questions. Provider Impressions 1. Inverted [...] No Reported Medications Vitals Vital Signs Recorded: [id number] 04:13PM Height6 ft Ypncfb526 lb 8 oz BMI Hiawyafcha44.89 kg/m2 BSA Calculated2.92 Tobacco Useb) No PHQ-2 [...] (Please see procedure below.) SINONASAL ENDOSCOPY (CPT 53242): To better evaluate the patient's symptoms, sinonasal endoscopy is indicated. After discussion of risks and benefits, and topical decongestion and anesthesia,an endoscope was used to perform (more content not included)... Normal [employer] Tobacco Screening.on 023 Adult depression screening assessment No [employer]OtolarynRainDance [employer] Work Phone: Fall risk assessment a) No falls within the last year [employer] Work Phone: Tobacco use status CPHS b) No ObsEva-Otolaryng [employer] Work Phone: MRI LSPINE WO CONon 07-23-20 [...] ANTONIO WEINSTEIN Date: 2022-07-23 12:04 Normal [facility] XR LSPINE 2_3 VIEWSon 2021 XR [...] ANTONIO WEINSTEIN Date: 2022-02-18 15:30 Normal [facility] Pathology Reporton 0 Pathology Report [id number] Normal [facility] Coding Summary.on 08-31-2019 Coding Summary. CODING DATE: 019 FINAL [facility] STATUS: Home (Routine DC) PAYOR: Medical [place] APC DESCRIPTION 5155 Level 5 Airway Endoscopy ADMIT DX: REASON FOR VISIT DX: J32.4 Chronic pansinusitis FINAL DX: PRINCIPAL: J32.4 Chronic pansinusitis SECONDARY: J34.89 Other specified disorders of nose and nasal sinuses J45.909 Unspecified asthma, uncomplicated G47.30 Sleep apnea, unspecified Z99.89 Dependence on other enabling machines and devices PYMT PROC APC STAT DESCRIPTION DOCTOR NAME DATE 05836 5153 J1 Nasal/sinus endoscopy, Jeferson HUBBARD, Yolette Ureña 08/25/2019 surgical with ethmoidectomy; total (anterior and posterior), including sphenoidotomy, with removal of tissue from the sphenoid sinus RT Right side (used to identify procedures performed on the right side of the body) 22533 5155 J1 Nasal/sinus endoscopyJeferson MD, Hilary H 08/25/2019 surgical, with maxillary antrostomy; with removal of tissue from maxillary sinus RT Right side (used to identify procedures performed on the right side of the body) 02889 5155 J1 Nasal/sinus endoscopyJeferson MD, Hilary H 08/25/2019 surgical, with frontal sinus exploration, including removal of tissue from frontal sinus, when performed RT Right side (used to identify procedures performed on the right side of the body) 82015 Anesthesia for Loyd López Jr., DO 08/25/2019 procedures on nose and accessory sinuses; not otherwise specified NOTE: The code number assigned matches the documented diagnosis and / or procedure in the patient's chart. However, the narrative phrase printed from the coding software may appear abbreviated, or result in slightly different terminology. Revised Coded By: Ngoc Campo Revised Date Saved: 08/31/2019 10:48 am Normal [facility] Main OR Intraoperative Recor don 08-29-2019 Main OR Intraoperative Record IntraOp Document Type FT Summary Primary Physician: Yolette Govea MD Finalized Date/Time: 08/29/19 09:29:47 Pt. Name: WALE MI/Sex: 2000 Male Med Rec #: [id number] Physician: Yolette Govea MD Financial #: [id number] Pt. Type: A Room/Bed: [facility]/ Admit/Disch: 08/25/19 09:16:00 - 08/25/19 15:30:00 Institution: [...] opened to review and send charges Kristy Hopkins [facility] Case Attendance FT Entry 1 Entry 2 Entry 3 Case Attendee Rene Nava DO, Loyd Govea MD, Yolette Kimball RN, Jomar Morales Role Performed Anesthesiologist of Surgeon - Primary Event Marketing Specialist - Primary Record Time In 08/25/19 10:37:00 08/25/19 10:37:00 08/25/19 10:37:00 Time Out 08/25/19 13:03:00 08/25/19 13:03:00 08/25/19 13:03:00 Procedure ANTROSTOMY TURBINECTOMY ANTROSTOMY TURBINECTOMY ANTROSTOMY TURBINECTOMY ETHMOIDECTOMY IM(Right) ETHMOIDECTOMY IM(Right) ETHMOIDECTOMY IM(Right) Comments out of room from 3836-0625. Last Modified By: Patrick INFANTE, Nelly Nguyen RN, Nelly Robison RN 08/25/19 13:05:43 08/25/19 13:05:43 08/25/19 13:05:43 Entry 4 Entry 5 Entry 6 Case Attendee Patrick INFANTE, Nelly Aguilar SUGAR MILL WORKER, Enzo Tijerina SUGAR MILL WORKER, Sheba Segovia Role Performed Event Marketing Specialist - Primary Scrub - Primary Scrub - Relief Time In 08/25/19 10:37:00 08/25/19 10:37:00 08/25/19 11:40:00 Time Out 08/25/19 13:03:00 08/25/19 13:03:00 08/25/19 12:14:00 Procedure ANTROSTOMY TURBINECTOMY ANTROSTOMY TURBINECTOMY ANTROSTOMY TURBINECTOMY ETHMOIDECTOMY IM(Right) ETHMOIDECTOMY IM(Right) ETHMOIDECTOMY IM(Right) Comments out for lunch at out for lunch at [phone] 5517-5574 Last Modified By: Patrick INFANTE, Nelly Nguyen [...] and tissue Entry 1 Skin Integrity Intact, [place], Warm, and Skin Abnormality No Dry Outcomes [...] Yes Last Modified By: Nguyen RN, Nelly Robison RN, RN, Karen M 08/25/19 11:36:50 08/25/19 11:36:50 [...] 08/25/19 11:42:00 By Rehana INFANTE, Breezy Staton SUGAR MILL WORKER, Jeff Marcano CST, Jeff Giraldo CST, Enzo Kimball RN, Nelly Horn RN Outcomes Met? Yes Yes Yes Last Modified By: Nelly Nguyen RN, RNJomar RN, Andrea L 08/25/19 11:10:00 08/25/19 11:46:28 [...] L Patient Status Stable Skin. Condition Intact, [place], Warm, and Dry Airway Maintenance Oxygen in Use? Yes Airway Device Simple Mask Flow Rate 10 L/min Outcomes Met? Yes Last Modified By: Jomar Kimball RN 08/25/19 11:48:09 Post-Care Text: The patient is free from signs and symptoms of injury related to transfer/transport General Comments: handoff report given to pacu nurse. ARELIS Whelannurses director Administration FT Pre-Care Text: Verifies allergies, [...] AIR Quantity 1 Aid PLUS LOWER BODY [[id number]][F] Fluid/[place] warming system Setting high/43 degrees Body Site Lower anterior torso Last Modified By: Nelly Nugyen RN 08/25/19 10:05:52 Case Comments Finalized By: Melisa Rg CST Document Signatures Signed By: Nelly Nguyen RN 08/25/19 13:06 ALEXIS Hines RN, Andrea 08/26/19 11:19 Melisa Rg CST 08/29/19 09:29 Normal [facility] Operative Reporton 11-22-201 9 Operative Report Date [...] Yolette Govea Jr., M.D. aek Dictated: 08/25/2019 #[id number] Typed: 08/26/2019 #[id number] cc: Wiliam Carrillo Jr., M.D. [facility] Comment on above: Result Comment: Elec tronically Signed By: Yolette Govea MD\.br\Date and Time Signed: 08/26/19 09:56 EST Inpatient Patient Summaryon 08-25-2019 Inpatient Patient Summary [facility] Clinical Discharge Instructions PERSON INFORMATION Name: [place] PHYSICIANS Admitting Physician: Yolette Govea MD Attending Physician: Yolette Govea MD PCP: ENZO COLEMAN DO Discharge Diagnosis: Chronic pansinusitis Comment: PATIENT EDUCATION INFORMATION Instructions: Post Op Patient Instructions - FT (CUSTOM) Medication Leaflets: Follow up: With: Address: When: Yolette Govea [address] [place] [address] Business (1) In 6 days 08/31/2019 Comments: Call for followup appointment MEDICATION LIST Comment: Keshav [facility] Main OR PACU I Recordon 08-06 Main OR PACU I Record PACU Phase I Document Type FT Summary Primary Physician: Yolette Govea MD Finalized Date/Time: 08/25/19 13:39:03 Pt. Name: WALE MI/Sex: 2000 Male Med Rec #: [id number] Physician: Yolette Govea MD Financial #: [id number] Pt. Type: A Room/Bed: [place] [address] Admit/Disch: 08/25/19 09:16:27 - Institution: Case Times [...] By: Jesenia Phan RN 08/25/19 13:39 Normal [facility] Main OR PACU II Recordon Main OR PACU II Record PACU Phase II Document Type FT Summary Primary Physician: Yolette Govea MD Finalized Date/Time: 08/25/19 15:29:24 Pt. Name: SHMUELWALE/Sex: 2000 Male Med Rec #: [id number] Physician: Yolette Govea MD Financial #: [id number] Pt. Type: A Room/Bed: [facility]/ Admit/Disch: 08/25/19 09:16:27 - Institution: [...] By: Heavenly Hager RN 08/25/19 15:29 Normal [facility] Main OR Preoperative Recordo n 08-25-2019 Main OR Preoperative Record PreOp Document Type FT Summary Primary Physician: Yolette Govea MD Finalized Date/Time: 08/25/19 11:07:39 Pt. Name: WALE MI/Sex: 2000 Male Med Rec #: [id number] Physician: Yolette Govea MD Financial #: [id number] Pt. Type: A Room/Bed: [facility] Admit/Disch: 08/25/19 09:16:27 - Institution: [...] By: Nelly Nguyen RN 08/25/19 11:07 Normal [facility] Operative Reporton 9 Operative Report Patient: Ministerio MI Age: 18 years Sex: Male : 2000 Associated Diagnoses: None Author: Yolette Govea MD Postoperative Information Procedure: RT IG microdebrider assisted MMA with r/o tissue, total ethmoidectomy, frontal sinusotomy, sphenoidotomy with r/o tissue Preoperative Diagnosis: Chronic pansinusitis (CDW19-PB J32.4, Working, Medical). Postoperative Diagnosis: Chronic pansinusitis (HZG73-JU J32.4, Discharge, Medical). Performed by: Yolette Govea MD. 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 Specimens Removed: nasal polyp, RT sinus contents, RT sinus sock, RT max sinus tissue, RT sphenoid tissue. Estimated Blood Loss: 100 ml. Medications Complications: None. Normal [facility] Comment on above: Result Comment: Elec tronically Signed By: Yolette Govea MD\.br\Date and Time Signed: 08/25/19 13:21 EST Patient Education - Texton 1 10-25-2018 Patient Education - Text Normal [facility] Coding Summary.on 08-22-2019 Coding Summary. CODING DATE: 019 FINAL [facility] STATUS: Home (Routine DC) PAYOR: Medical [place] [employer] DESCRIPTION 5521 Level 1 Imaging without [...] CphT Date Saved: 08/22/2019 11:03 am Normal [facility] Auto Diffon 08-19-2019 Basophils/100 WBC (Bld) 1.4 % Normal 0.0-2.0 [facility] Comment on above: Order Comment: Order Added by Discern Expert. Performed By: #### 2 [id number], [id number], [id number] #### [facility] Laboratory [address] [place] [address] Basophils/Leukocyte s Auto (Bld) [Pure # fraction] 0.2 E9/L Normal 0.0-0.2 [facility] Comment on above: Order Comment: Order Added by Discern Expert. Performed By: #### 2 [id number], [id number], [id number] #### [facility] Laboratory [address] [place] [address] Eosinophils/100 WBC (Bld) 1.1 % Normal 0.0-8.0 [facility] Comment on above: Order Comment: Order Added by Discern Expert. Performed By: #### 2 [id number], [id number], [id number] #### [facility] Laboratory [address] [place] [address] Eosinophils/Leukocy carlos Auto (Bld) [Pure # fraction] 0.1 E9/L Normal 0.0-0.5 [facility] Comment on above: Order Comment: Order Added by Discern Expert. Performed By: #### 2 [id number], [id number], [id number] #### [facility] Laboratory [address] [place] [address] Lymphocytes/100 WBC (Bld) 21.2 % Normal 14.0-50.0 [facility] Comment on above: Order Comment: Order Added by Discern Expert. Performed By: #### 2 [id number], [id number], [id number] #### [facility] Laboratory [address] [place] [address] Lymphocytes/Leukocy carlos Auto (Bld) [Pure # fraction] 2.3 E9/L Normal 1.0-4.0 [facility] Comment on above: Order Comment: Order Added by Discern Expert. Performed By: #### 2 600371, [id number], [id number] #### [facility] Laboratory [address] [place] [address] Monocytes/100 WBC (Bld) 5.4 % Normal 4.0-14.0 [facility] Comment on above: Order Comment: Order Added by Discern Expert. Performed By: #### 2 [id number], [id number], [id number] #### [facility] Laboratory [address] [place] [address] Monocytes/Leukocyte s Auto (Bld) [Pure # fraction] 0.6 E9/L Normal 0.2-1.0 [facility] Comment on above: Order Comment: Order Added by Discern Expert. Performed By: #### 2 [id number], [id number], [id number] #### [facility] Laboratory [address] [place] [address] Neutrophils/100 WBC (Bld) 70.9 % Normal 36.0-75.0 [facility] [facility] Comment on above: Order Comment: Order Added by Discern Expert. Performed By: #### 2 [id number], [id number], [id number] #### [facility] [address] [place] [address] Neutrophils/Leukocy carlos Auto (Bld) [Pure # fraction] 7.6 E9/L High 2.0-7.5 [facility] Comment on above: Order Comment: Order Added by Discern Expert. Performed By: #### 2 [id number], [id number], [id number] #### [facility] [address] [place] [address]1835 BUNon 08-19-2019 Urea nitrogen [Mass/Vol] 12 mg/dL Normal 5-21 [facility] Comment on above: Performed By: #### 2 046349, 1018469, [id number], [id number], [id number] #### [facility] [address] [place] [address] CBC w/ Auto Diffon 9 Erythrocyte distribution width (RBC) [Ratio] 14.1 % Normal 10.9-14.2 [facility] Comment on above: Performed By: #### 2 [id number], [id number], [id number] #### [facility] [address] [place] [address] Hematocrit (Bld) [Volume fraction] 48.4 % Normal 37.7-49.0 [facility] Comment on above: Performed By: #### 2 648224, [id number], [id number] #### [facility] [address] [place] [address]207 Hemoglobin (Bld) [Mass/Vol] 16.2 g/dL Normal 13.5-17.5 [facility] Comment on above: Performed By: #### 2 907758, [id number], [id number] #### [facility] [address] [place] [address] 93856 MCH (RBC) [Entitic mass] 29.0 pg Normal 27.0-34.0 [facility] Comment on above: Performed By: #### 2 912855, [id number], [id number] #### [facility] [address] [place] [address] 81281 MCHC (RBC) [Mass/Vol] 33.6 g/dL Normal 31.4-36.0 [facility] Comment on above: Performed By: #### 2 539220, 7886913, [id number] #### [facility] [address] [place] [address] 12764 MCV (RBC) [Entitic vol] 86.5 fL Normal 80.0-100.0 [facility] Comment on above: Performed By: #### 2 712426, 9246149, [id number] #### [facility] [address] [place] [address] 13629 Platelet mean volume (Bld) [Entitic vol] 8.7 fL Normal 6.4-10.8 [facility] Comment on above: Performed By: #### 2 113598, 5025206, [id number] #### [facility] [address] [place] [address] Platelets (Bld) [#/Vol] 351.0 E9/L Normal 150.0-500.0 [facility] Comment on above: Performed By: #### 2 426073, 7340271, [id number] #### [facility] [address] [place] [address] RBC (Bld) [#/Vol] 5.6 E12/L Normal 4.3-5.9 [facility] Comment on above: Performed By: #### 2 827504, 6987103, [id number] #### [facility] [address] [place] [address] 26241 WBC corrected for nucl RBC Auto (Bld) [#/Vol] 10.7 E9/L Normal 4.0-11.0 [facility] Comment on above: Performed By: #### 2 993109, 4936834, [id number] #### [facility] [address] [place] [address] Creatinineon 08-19-2019 Creatinine [Mass/Vol] 0.8 mg/dL Normal 0.5-1.3 [facility] Comment on above: Performed By: #### 2 235883, 4894228, 08687379, 5711965, 4419807 #### [facility] [address] [place] [address] Glucoseon 08-19-2019 Glucose [Mass/Vol] 97 mg/dL Normal 55-199 [facility] Comment on above: Performed By: #### 2 131003, 2084280, 98828909, 0576981, [id number] #### [facility] [address] [place] [address] Lyteson 08-19-2019 Anion gap [Moles/Vol] 14 mmol/L Normal 6-16 [facility] Comment on above: Performed By: #### 2 603870, 4402071, 40490235, 2992286, 4701453 ####[facility] [address] [place] [address] Chloride [Moles/Vol] 104 mmol/L Normal 101-111 [facility] Comment on above: Performed By: #### 2 845708, 8138773, 30910861, 1123263, 8320583 ####[facility] [address] [place] [address] CO2 [Moles/Vol] 25 mmol/L Normal 21-31 [facility] Comment on above: Performed By: #### 2 988896, 2003637, 64093402, 7334979, 3687992 ####[facility] [address] [place] [address] Potassium [Moles/Vol] 3.5 mmol/L Normal 3.5-5.3 [facility] Comment on above: Performed By: #### 2 159988, 8330782, 53270065, 2929255, 3643128 ####[facility] [address] [place] [address] Sodium [Moles/Vol] 139 mmol/L Normal 135-145 [facility] Comment on above: Performed By: #### 2 444559, 1957479, 86286654, 1693609, 8426544 ####[facility] [address] [place] [address] PT & PTTon 08-19-2019 aPTT Coag (PPP) [Time] 35.7 second(s) Normal 25.1-36.5 [facility] Comment on above: Result Comment: Hepa rin therapeutic range (represented by Anti-Factor Xa activity of 0.2 - 0.4 U/mL) corresponds to PTT of 56.6 - 109.0 sec. Performed By: #### 2 774257, 0301133, [id number] #### [facility] [address] [place] [address] INR Coag (PPP) [Relative time] 1.0 {INR} [facility] Comment on above: Result Comment: INR results are specifically intended to assess patients stabilized on long-term Anticoagulation therapy suggested INR?s ?Less Intensive Anticoagulation? 2.0 ? 3.0 Conventional Range 3.0 ? 4.5 Performed By: #### 2 633561, 1717690, [id number] #### [facility] [address] [place] [address] PT Coag (PPP) [Time] 11.6 second(s) Normal 10.2-12.9 [facility] Comment on above: Performed By: #### 2 983339, 0058407, [id number] #### [facility] [address] [place] [address] XR Chest 2 Viewson 9 XR Chest [...] M.D. Transcribed by: JAZMYNE Technologist: ZHANNA Normal [facility] eGFRon 08-19-2019 GFR/1.73 sq M predicted among blacks MDRD (S/P/Bld) [Vol rate/Area] mL/min/{1.73_m2} Normal >=59 [facility] Comment on above: Order Comment: Order added by Discern Expert. Result Comment: eGFR is race adjusted. AA=. Performed By: #### 2 710430, 6721819, 72965039, 7786240, 0686213 #### [facility] [address] [place] [address] GFR/1.73 sq M predicted among non-blacks MDRD (S/P/Bld) [Vol rate/Area] mL/min/{1.73_m2} Normal >=59 [facility] Comment on above: Order Comment: Order added by Discern Expert. Result Comment: Legal Researcher niall kidney disease could be indicated at eGFR's of less than 60 mL/min/1.73m2. Kidney failure is indicated at less than 15 mL/min/1.73m2. Performed By: #### 2 926486, 7781007, 51659364, 4250485, 5455397 #### [facility] [address] [place] [address] Coding Summary.on 08-08-2019 Coding Summary. CODING DATE: 019 FINAL [facility] DSC STATUS: Home (Routine DC) PAYOR: [facility] [place] [facility] DESCRIPTION 5522 Level 2 Imaging without [...] CphT Date Saved: 08/08/2019 12:24 pm Normal [facility] CT Maxillofacial w/o Contras ton 08-07-2019 CT [...] M.D. Transcribed by: JAZMYNE Technologist: YOSEPH Parr [facility] Vital Signs Date Time Vital Sign Value Performing Clinician Facility 05-23-2025 15: Body height 182.25 cm Enzo Ball DO Work Phone: [facility] 05-23-2025 15:210400 Body mass index (BMI) [Ratio] 56.5 kg/m2 Enzo Ball DO Work Phone: [facility] 05-23-2025 15:210400 Body weight 187.9 kg Enzo Ball DO Work Phone: [facility] 05-23-2025 15:21-0400 Diastolic blood pressure 80 mm[Hg] Enzo Ball DO Work Phone: [facility] 05-23-2025 15:21-0400 Heart rate 112 /min Enzo Ball DO Work Phone: [facility] 05-23-2025 15:21-0400 Respiratory rate 12 /min Enzo Ball DO Work Phone: [facility] 05-23-2025 15:21-0400 Systolic blood pressure 118 mm[Hg] Enzo Ball DO Work Phone: [facility] 01-16-2025 16:140400 Body height 182.25 cm [facility] 01-16-2025 16:140400 Body mass index (BMI) [Ratio] 56.4 kg/m2 [facility] 01-16-2025 16:14-0400 Body weight 187.44 kg [facility] 01-16-2025 16:14-0400 Diastolic blood pressure 108 mm[Hg] [facility] 01-16-2025 16:14-0400 Heart rate 102 /min [facility] 01-16-2025 16:14-0400 Respiratory rate 12 /min [facility] 01-16-2025 16:14-0400 SaO2% (BldA) [Mass fraction] 97 % [facility] 01-16-2025 16:14-0400 Systolic blood pressure 160 mm[Hg] [facility] 01-11-2025 15:29-0400 Body height 182.9 cm Dominick Barbosa MD Work Phone: 8(669)264-915328 [place] [address] 01-11-2025 15:29-0400 Body mass index (BMI) [Ratio] 55.95 kg/m2 Dominick Barbosa MD Work Phone: 3(507)275-432928 [place] [address] 01-11-2025 15:29-0400 Body weight 187.11 kg Dominick Barbosa MD Work Phone: 3(991)368-150328 [place] [address] 07-13-2024 13:18-0400 Body height 182.9 cm Dominick Barbosa MD Work Phone: 4(222)367-277228 [place] [address] 07-13-2024 13:18-0400 Body mass index (BMI) [Ratio] 56.42 kg/m2 Dominick Barbosa MD Work Phone: 9(655)884-221528 [place] [address] 07-13-2024 13:18-0400 Body weight 188.7 kg Dominick Barbosa MD Work Phone: 8(160)955-070428 [place] [address] 06-03-2024 14:05-0400 Body height 182.25 cm [facility] 06-03-2024 14:05-0400 Body mass index (BMI) [Ratio] 57.3 kg/m2 [facility] 06-03-2024 14:05-0400 Body weight 190.5 kg [facility] 06-03-2024 14:05-0400 Diastolic blood pressure 91 mm[Hg] [facility] 06-03-2024 14:05-0400 Heart rate 83 /min [facility] 06-03-2024 14:05-0400 Respiratory rate 12 /min [facility] 06-03-2024 14:05-0400 Systolic blood pressure 146 mm[Hg] [facility] 03-09-2024 15:02-0400 Body height 182.9 cm Dominick Barbosa MD Work Phone: [facility] 03-09-2024 15:02-0400 Body mass index (BMI) [Ratio] 56.32 kg/m2 Dominick Barbosa MD Work Phone: [facility] 03-09-2024 15:02-0400 Body weight 188.38 kg Dominick Barbosa MD Work Phone: [facility] 10-06-2023 12:15-0500 Body height 182.25 cm Enzo Ball Other [employer] [facility] [employer] Other 10-06-2023 12:15-0500 Body mass index (BMI) [Ratio] 54.62 kg/m2 Enzo Ball Other [employer] [facility] [employer] Other 10-06-2023 12:15-0500 Body weight 181.44 kg Enzo Ball Other [facility] [employer] Other 09-02-2023 15:29-0500 Body height 182.9 cm Dominick Barbosa MD Work Phone: [facility] 09-02-2023 15:29-0500 Body mass index (BMI) [Ratio] 54.37 kg/m2 Dominick Barbosa MD Work Phone: [facility] 09-02-2023 15:29-0500 Body weight 181.85 kg Dominick Barbosa MD Work Phone: [facility] 05-27-2023 07:57-0400 Body height 182.88 cm Enzo Coleman Work Phone: [facility]wg[facility] Work Phone: 05-27-2023 07:57-0400 Body mass index (BMI) [Ratio] 55.81 kg/m2 Enzo Coleman Work Phone: KK[facility]ivhpztalni[facility] 4[facility] Work Phone: 05-27-2023 07:57-0400 Body surface area Derived from formula 2.89 m2 Enzo Coleman Work Phone: [facility]tb[facility]lgyxrbdp[facility] Work Phone: 05-27-2023 07:57-0400 Body weight 186.66 kg Enzo Coleman Work Phone: LW-Fyzelrwsphaywi[facility] 4[facility] Work Phone: 05-27-2023 07:57-0400 0 1 Enzo Coleman Work Phone: [facility] 4100 Work Phone: Comment on above: [employer] 05-20-2023 12:20-0400 Body height 182.88 cm Enzo Coleman Work Phone: [facility] 4100 Work Phone: 05-20-2023 12:20-0400 Body mass index (BMI) [Ratio] 56.31 kg/m2 Enzo Coleman Work Phone: [facility] 4100 Work Phone: 05-20-2023 12:20-0400 Body surface area Derived from formula 2.91 m2 Enzo Coleman Work Phone: UE-Qpcjyphhsmjarw[facility] 4[facility] Work Phone: 05-20-2023 12:20-0400 Body weight 188.33 kg Enzo Coleman Work Phone: LB[facility]aaidbxhqqbcgv[facility] Work Phone: 05-15-2023 11:49-0400 Body temperature 96.8 [degF] Dominick Barbosa MD Work Phone: [facility] 05-15-2023 11:49-0400 Diastolic blood pressure 91 mm[Hg] Dominick Barbosa MD Work Phone: [facility] 05-15-2023 11:49-0400 Heart rate 82 /min Dominick Barbosa MD Work Phone: [facility] 05-15-2023 11:49-0400 Respiratory rate 16 /min Dominick Barbosa MD Work Phone: [facility] 05-15-2023 11:49-0400 Systolic blood pressure 139 mm[Hg] Dominick Barbosa MD Work Phone: [facility] 05-15-2023 11:18-0400 Body height 182.8 cm Dominick Barbosa MD Work Phone: [facility] 05-15-2023 11:18-0400 Body mass index (BMI) [Ratio] 55.39 kg/m2 Dominick Barbosa MD Work Phone: [facility] 05-15-2023 11:18-0400 Body weight 185.1 kg Dominick Barbosa MD Work Phone: [facility] 03-18-2023 13:56-0400 Body height 182.88 cm Enzo Coleman Work Phone: FW-Wxynkkifjiwlfc-Az [address] Work Phone: 03-18-2023 13:56-0400 Body mass index (BMI) [Ratio] 56.63 kg/m2 Enzo Coleman Work Phone: YW-Conhpismwoqhbz-Zn [address] Work Phone: 03-18-2023 13:56-0400 Body surface area Derived from formula 2.91 m2 Enzo E Ball Work Phone: SQ-Dpfhtxztxyvsze-Li [place] Work Phone: 03-18-2023 13:56-0400 Body weight 189.41 kg Enzo E Ball Work Phone: TK-Etcqqrzwtqqbje-Cq [place] Work Phone: 03-18-2023 13:56-0400 0 1 Enzo E Ball Work Phone: KR-Wdldeoihlmtsvl-Wh [address] Work Phone: Comment on above: [employer] 11-12-2022 16:13-0500 Body height 182.88 cm Enzo E Ball Work Phone: NC-Tcwwqutouksoaq-Hh [place] Work Phone: 11-12-2022 16:13-0500 Body mass index (BMI) [Ratio] 56.89 kg/m2 Enzo E Ball Work Phone: FB-Nudoblljbvgfgc-Mo [address] Work Phone: 11-12-2022 16:13-0500 Body surface area Derived from formula 2.92 m2 Enzo E Ball Work Phone: HF-Fnhsxqglmhtvfp-Kk [place] Work Phone: 11-12-2022 16:13-0500 Body weight 190.29 kg Enzo E Ball Work Phone: LG-Wiljpphrmdkuvt-Bh [address] Work Phone: 11-12-2022 16:13-0500 0 1 Enzo E Ball Work Phone: VQ-Pbeaqckdosrjzq-Xa [address] Work Phone: Comment on above: [employer] Encounters Encounter Date Encounter Type Care Provider Facility Start: 05-23-2025 End: 05-23-2025 ambulatory Enzo Ball DO Work Phone: [facility] Work Phone: Start: 05-23-2025 End: 05-23-2025 [facility] Work Phone: Start: 05-23-2025 End: 05-23-2025 [facility] Start: 02-13-2025 End: 02-13-2025 Office outpatient visit 15 minutes Dominick Barbosa MD Work Phone: [facility] Comment on above: 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); Chronic sphenoidal sinusitis Start: 02-13-2025 End: 02-13-2025 ambulatory DOMINICK Mandel [facility] Start: 02-13-2025 End: 02-13-2025 ambulatory Ruth Pfeiffer MD Facility:[facility] Start: 01-16-2025 End: 01-16-2025 ambulatory [facility] Work Phone: Start: 01-16-2025 End: 01-16-2025 Patient encounter procedure Counts Include [facility] Physician [facility] Work Phone: Start: 01-16-2025 End: 01-16-2025 ambulatory Ruth Pfeiffer MD Facility:[facility] Start: 01-11-2025 End: 01-11-2025 Office outpatient visit 15 minutes Dominick Barbosa MD Work Phone: [facility] Comment on above: 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); Chronic sphenoidal sinusitis; Chronic maxillary sinusitis Start: 01-11-2025 End: 01-11-2025 ambulatory DOMINICK Mandel [facility] Start: 01-02-2025 End: 01-02-2025 ambulatory Ruth Pfeiffer MD Facility:[facility] Start: 09-12-2024 End: 09-12-2024 ambulatory Ruth Pfeiffer MD Facility:[facility] Start: 08-08-2024 End: 08-08-2024 ambulatory [facility] Work Phone: Start: 08-08-2024 End: 08-08-2024 Patient encounter procedure Counts Include [address] [facility] Physician [facility] Work Phone: Start: 07-13-2024 End: 07-13-2024 Office outpatient visit 15 minutes Dominick Barbosa MD Work Phone: [facility] Comment on above: Post-nasal drainage (Primary Dx); Chronic maxillary sinusitis; Nasal congestion Start: 07-13-2024 End: 07-13-2024 ambulatory [facility] Start: 07-04-2024 End: 07-04-2024 ambulatory Ruth Pfeiffer MD Facility:[facility] Start: 06-08-2024 Non-patient / Non-visit [facility] [employer] Work Phone: Start: 06-03-2024 Patient encounter status [facility] Start: 06-03-2024 End: 06-03-2024 ambulatory [facility] Work Phone: Start: 06-03-2024 End: 06-03-2024 Encounter for general adult medical examination without abnormal findings [facility] Start: 06-03-2024 End: 06-03-2024 Patient encounter procedure Counts Include [address] [facility] Physician [facility] Work Phone: Start: 03-09-2024 End: 03-09-2024 ambulatory [facility] Start: 03-09-2024 End: 03-09-2024 Office outpatient visit 15 minutes Dominick Barbosa MD Work Phone: [facility] Comment on above: Chronic ethmoidal si nusitis (Primary Dx); Chronic maxillary sinusitis Start: 10-06-2023 End: 10-06-2023 ambulatory Enzo [employer] Other [employer] Other Start: 10-06-2023 Office outpatient vi sit 15 minutes Enzo Coleman [facility] Start: 09-02-2023 End: 09-02-2023 Office outpatient visit 15 minutes Dominick Barbosa MD Work Phone: [facility] Comment on above: Chronic ethmoidal si nusitis (Primary Dx); Other chronic sinusitis; Chronic sphenoidal sinusitis Start: 06-07-2023 Chart Update Enzo morales Work Phone: [facility]xgtkyfpfspue[facility] 7697 Work Phone: Start: 05-27-[address] Dominick Cerda Facility:[id number] Start: 05-20-2023 Postop follow up vis it related to original px Enzo Coleman Work Phone: CF-Juturmrbxfawwp[facility] 6149 Work Phone: Start: 05-20-[address] Enzo Coleman Facility:[id number] Start: 05-15-2023 End: 05-15-[address] Dominick Barbosa Facility:[facility] Start: 05-15-2023 AUDIT Enzo morales Work Phone: E[facility]oagngpv[facility] 2680 Work Phone: Start: 05-15-2023 End: 05-15-2023 Subsequent hospital visit by physician Dominick Barbosa MD Work Phone: [facility] Comment on above: Chronic ethmoidal si nusitis; Benign neoplasm of middle ear, nasal cavity and accessory sinuses; Chronic sinusitis, unspecified Start: 05-12-[address] Dominick Cerda Facility:[facility] Start: 05-12-2023 Encounter for preprocedural laboratory examination Dr. Dominick Barbosa [facility] Start: 03-18-2023 Office outpatient vi sit 15 minutes Enzo Coleman Work Phone: KZ-Fopafmeqghggol-[facility] 3222 Work Phone: Start: 03-18-2023 Patient encounter procedure Enzo Coleman Work Phone: TC-Qxuylppfgybhqn-Oqgb [place] Work Phone: Start: 03-18-[address] Dominick Cerda Facility:[id number] Start: 01-07-2023 End: 01-07-2023 ambulatory Enzo Coleman Other [employer] Other Start: 01-07-2023 Telephone encounter Enzo Coleman [facility] Start: 01-06-2023 Office outpatient vi sit 25 minutes Enzo [place] Work Phone: ZR[facility]Csjbthmrdinsxt[facility] 4107 Work Phone: Start: 01-06-[address] Dominick Cerda Facility:[id number] Start: 01-05-2023 End: 01-05-2023 ambulatory Enzo Coleman Other [employer] Other Start: 01-05-2023 Office outpatient vi sit 15 minutes Enzo Coleman [facility] Start: 11-19-2022 End: 11-20-[address] DOCTOR PARISI Facility:H1 Start: 11-12-2022 Office outpatient vi sit 25 minutes Enzo Coleman Work Phone: [facility] 4100 Work Phone: Start: 11-12-2022 Patient encounter procedure Enzo Coleman Work Phone: FQ-Xygqrjakacvynz-Qadq [place] Work Phone: Start: 11-12-[address] Dominick Cerda Facility:[id number] Start: 07-29-2022 End: 08-23-[address] ENZO COLEMAN Facility:H1 Start: 07-22-2022 End: 07-23-[address] ENZO COLEMAN Facility:H1 Start: 06-24-2022 Well child visit Enzo Coleman Other [employer] Other Start: 03-20-2022 End: 04-25-[address] [...] 2) Zoste r Vaccines (1 of 2) [facility] Start: 01-17-2026 End: 01-17-2026 Patient encounter procedure 01/17/2026 3:15 PM EDT Office Visit [facility] [address] [place] [address] Dominick Barbosa MD [address] [place] [address] [facility] Start: 06-05-2025 Influenza vaccination Influenz a Vaccine (Season Ended) [facility] Start: 01-11-2025 End: 01-11-2025 Patient encounter procedure 01/11/2025 3:00 PM EDT Office Visit [facility] [address] [place] [address] Dominick Barbosa MD [address] [place] [address] [facility] Start: 07-13-2024 End: 07-13-2024 Patient encounter procedure 07/13/2024 1:15 PM EDT Office Visit [facility] [address] [place] [address] Dominick Barbosa MD [address] [place] [address] [facility] Start: 06-05-2024 COVID-19 Vaccine () COVID-19 Vaccine () [facility] Start: 06-05-2024 Influenza vaccination [facility] Start: 03-09-2024 End: 03-09-2024 Patient encounter procedure 03/09/2024 2:45 PM EDT Office Visit [facility] [address] [place] [phone] Dominick Barbosa MD [address] [place] [address] [facility] Start: 09-02-2023 FUV, Provider: Dominick Barbosa, Status: Pen, Time: 2:45 PM FUV, Provider: Dominick Barbosa, Status: Pen, Time: 2:45 PM [facility] 4100 Work Phone: Start: 09-02-2023 End: 09-02-2023 Patient encounter procedure 09/02/2023 2:45 PM EST Office Visit [facility] [address] [place] [phone] Dominick Barbosa MD [address] [place] [address] [facility] Start: 06-05-2023 COVID-19 Vaccine ( season) COVID-19 Vaccine ( season) [facility] Start: 06-05-2023 Influenza vaccination Influenz a Vaccine (#1) [facility] Start: 05-27-2023 POV, Provider: Dominick Barbosa, Status: Pen, Time: 10:30 AM POV, Provider: Dominick Barbosa, Status: Pen, Time: 10:30 AM DC-Rfsjkqffvbhdtc-[place] Work Phone: Start: 05-20-2023 POV, Provider: Dominick Barbosa, Status: Pen, Time: 12:30 PM POV, Provider: Dominick Barbosa, Status: Pen, Time: 12:30 PM RZ-Tsjhprzfnqpomx-Vmcd [place] Work Phone: Start: 12-22-2022 DTaP/Tdap/Td Vaccine s (7 - Td or Tdap) DTaP/Tdap/Td Vaccines (7 - Td or Tdap) [facility] Start: 2022 DTaP/Tdap/Td Vaccine s (1 - Tdap) DTaP/Tdap/Td Vaccines (1 - Tdap) [facility] Start: 03-07-2021 COVID-19 Vaccine (2 - Booster for Isaias series) COVID-19 Vaccine (2 - Booster for Isaias series) [facility] Start: 2018 Hepatitis C screening Hepatitis C Mn hunter [facility] Start: 2015 HPV Vaccines (1 - Ma le 3-dose series) HPV Vaccines (1 - Male 3-dose series) [facility] Start: 2011 HPV Vaccines (1 - Ma le 2-dose series) HPV Vaccines (1 - Male 2-dose series) [facility] Start: 11-28-2004 Varicella vaccination Varicell a Vaccines (2 of 2 - 2-dose childhood series) [facility] Start: 2001 MMR Vaccines (1 of 1 - Standard series) MMR Vaccines (1 of 1 - Standard series) [facility] Start: 2001 Varicella vaccination Varicell a Vaccines (1 of 2 - 2-dose childhood series) [facility] Start: 03-23-2001 COVID-19 Vaccine (#1) COVID-19 Vacci ne (#1) [facility] Start: 2000 Hepatitis B Vaccines (1 of 3 - 3-dose series) Hepatitis B Vaccines (1 of 3 - 3-dose series) [facility] Start: 2000 HIV screening HIV Screening [facility] Start: 2000 Lipid panel Lipid Panel [facility] Start: 2000 Yearly Adult Physical Yearly Adult P hysical [facility] Comprehensive metabo lic 1999 panel - Serum or Plasma [facility] Comprehensive metabo lic 1999 panel - Serum or Plasma [facility] Patient Education Low back pain in adults [facility] Work Phone: [facility] Immunizations Immunization Date Immunization Notes Care Provider Fa cilinoe 09-23-2001 varicella virus vaccine Dominick Barbosa MD Work Phone: [facility] Work Phone: Payers Date Payer Category Payer [employer] [facility] [employer] [id number] 2022 Unknown 2022 Unknown [id number] 2019 Unknown [id number] 2000 Unknown [id number] 2.16.840.1.218598.3.579.2. 593 2000 Unknown [id number] 2.16.840.1.614070.3.579.2. 593 2000 Unknown [id number] 2.16.840.1.701866.3.579.2. 593 2000 Unknown [id number] 2.16.840.1.770817.3.579.2. 593 2000 Unknown [id number] 2.16.840.1.428874.3.579.2. 593 2000 Unknown [id number] 2.16.840.1.423957.3.579.2. 356 2000 Unknown [id number] 2.16.840.1.938389.3.579.2. 356 2000 Unknown [id number] 2.16.840.1.944789.3.579.2. 356 2000 Unknown [id number] 2.16.840.1.685842.3.579.2. 356 2000 Unknown [id number] 2.16.840.1.632682.3.579.2. 356 2000 Unknown [id number] 2.16.840.1.659944.3.579.2. 356 2000 Unknown [id number] 2.16.840.1.200810.3.579.2. 356 2000 Unknown [id number] 2.16.840.1.182785.3.579.2. 1244 2000 Unknown [id number] 2.16.840.1.036494.3.579.2. 1244 2000 Unknown [id number] 2.16.840.1.213163.3.579.2. 1244 2000 Unknown [id number] 2.16.840.1.849253.3.579.2. 1244 2000 Unknown [id number] 2.16.840.1.862224.3.579.2. 196 2000 Unknown [id number] 2.16.840.1.099546.3.579.2. 196 2000 Unknown [id number] 2.16.840.1.827835.3.579.2. 196 2000 Unknown [id number] 2.16.840.1.741451.3.579.2. 196 2000 Unknown [id number] 2.16.840.1.863709.3.579.2. 196 Self-pay Social History Date Type Detail Facility Start: 09-02-2023 End: 01-11-2025 Never a smoker Never a smoker NM-Uxkizlzvbxiozk-Yn stla ke Work Phone: Start: 09-02-2023 End: 01-11-2025 Sex Assigned At [employer] Other Tobacco smoking status SDIS Tobacco smoking consumption unknown [facility] Work Phone: Start: 2000 [facility]: Start: 09-02-2023 Tobacco smoking status SDIS Never smoked tobacco [facility] Work Phone: Start: 09-02-2023 Tobacco use and exposure Smokeless tobacco non-user [facility] Work Phone: Start: 08-23-2023 End: 01-11-2025 Exposure to SARS-CoV-2 (event) Not sure [facility] Start: 2000 Sex Assigned At Male [facility] Start: 01-16-2025 Sex Male (finding) [facility] Functional Status Date Assessment Result Facility 01-11-2025 Patient Health [facility] ionnaire 2 item (PHQ-2) [Reported] [facility] Work Phone: Clinical Notes 09-04-2020 to 05-05-2025 Note Date & Type Note Facility 05-05-2025 Evaluation note Diagnosis Onset Date Resolution Hypertension acute May 23, 2025 2:56pm IFG (impaired fasting glucose) acute May 23 2:56pm Low back pain acute May 2:56pm Obesity acute May 23 025 2:56pm Wellness examination acute Augu 2024 2:56pm [facility] Work Phone: 1(656) 677-292605-12-2025 History of Present illness Narrative* Dominick Barbsoa MD - 02/13/2025 4:45 PM EDT Sinus & Skull Base Surgery Virtual or Telephone Consent An interactive audio and video telecommunication system which permits real time communications between the patient (at the originating site) and provider (at the distant site) was utilized to providethis telehealth service. Verbal consent was requested and obtained from Wale Mi on this date, 02/13/25 for a telehealth visit and the patient's location was confirmed at the time of the visit. Chief Complaint: 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 Postnasal drainage 3. Nasal airway obstruction 4. Throat clearing, coughing 5. Asthma, allergy symptoms 6. Obstructive sleep apnea on positive pressure History Of Present Illness: Wale Mi presents since last being seen 01/11/2025. He presents today to review his biopsy results. Biopsy obtained January 11, 2025 from the right sphenoid: FINAL DIAGNOSIS Right sinus mass: - Sinonasal papilloma, inverted type, involving an inflammatory sinonasal polyp. - No high-grade dysplasia or invasive carcinoma identified. - Portion of bone with no significant pathologic findings. Biopsy obtained July 13, 2024 from the right maxillary sinus: FINAL DIAGNOSIS Nasal cavity, right mass, biopsy: - Sinonasal mucosa and chronic inflammation with edematous stroma, consistent with sinonasal inflammatory polyp. Active Problems: Problem List[1] Past Medical History: He has a past medical history of Other seasonal allergic rhinitis, Personal history of other diseases of the nervous system and sense organs, Personal history of other diseases of the respiratory system, and Personal history of other specified conditions. Surgical History: He has a past surgical history that includes Other surgical history (09/21/2019). Family History: Family History[2] Social History: He reports that he has never smoked. He has never used smokeless tobacco. No history on file for alcohol use and drug use. Allergies: Patient has no known allergies. Current Meds: Current Medications[3] Vitals: Visit Vitals Smoking Status Never Physical Exam: Virtual visit. 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 Postnasal drainage 3. Nasal airway obstruction 4. Throat clearing, coughing 5. Asthma, allergy symptoms 6. Obstructive sleep apnea on positive pressure Discussion: Wale Mi and I discussed his biopsy. I suggested observation in the short-term and repeat assessment in 6 months rather than 12 months. If there is residual lesion noted at that time, we can discuss in office or operating room options. When I biopsied the sphenoid lesion during his last evaluation, there was no obvious residual lesion. He was comfortable with observation and I asked him to schedule for 6 months. All questions were answered. Scribe Attestation By signing my name below, I, Tana Vitale, attest that this documentation has been prepared under the direction and in the presence of Dominick Barbosa MD. Signature: Dominick Barbosa MD [1] There is no problem list on file for this patient. [2] No family history on file. [3] Current Outpatient Medications: metFORMIN (Glucophage) 850 mg tablet, Take 1 tablet (850 mg) by mouth early in the morning.., Disp:, Rfl: mometasone furoate, bulk, 100 % powder, Compound 2 mg capsule to be added to sinus rinse twice daily., Disp: 180 g, Rfl: 3 documented in this [facility] Work Phone: 1(357) 862-951604-14-2025 Evaluation note* Diagnosis Onset Date Resolution Status Admit Date Hypertension acute January 16, 2025 3:19pm IFG (impaired fasting glucose) acute January 16, 2025 3:19pm Low back pain acute January 16, 2025 3:19pm Obesity acute January 16 3:19pm [facility] Work Phone: 1(199) 592-400504-09-2025 History of Present illness Narrative* Dominick Barbosa [...] positive pressure History Of Present Illness: Wale Mi presents since last being seen 07/13/2024. During [...] procedure below.) SINONASAL ENDOSCOPY WITH BIOPSY (CPT 81923-H): Due to the patient's nasal cavity / [...] Wale Mi appeared well on examination today. His previous [...] signing my name below, I, Margarito Allen, Martinibe, attest that this documentation has been prepared under the direction and in the presence of Dominick Barbosa MD. Signature: Dominick Barbosa MD documented in this [facility] Work Phone: 1(156) 789-785510-09-2024 History of Present illness Narrative* Dominick Barbosa [...] procedure below.) SINONASAL ENDOSCOPY WITH BIOPSY (CPT 27628-H): Due to the patient's nasal cavity / [...] Signature: Dominick Barbosa MD documented in this [facility] Work Phone: 1(422) 379-109006-05-2024 History of Present illness Narrative* Dominick Barbosa [...] (Please see procedure below.) SINONASAL ENDOSCOPY (CPT 75776): To better evaluate the patient's symptoms, sinonasal [...] of Agustina Barbosa MD. [facility] Work Phone: 1(984) 613-741101-02-2024 Evaluation note* Encounter Date Diagnosis Assessment Notes [...] index [BMI] 50.0-59.9, adult (ICD-10 - Z68.43) [employer] Other 11-29-2023 History of Present illness Narrative* [...] (Please see procedure below.) SINONASAL ENDOSCOPY (CPT 73784): To better evaluate the patient's symptoms, sinonasal [...] free to contact my office by calling [phone] with any questions. Signature: Scribe Attestation By signing my name below, I, Reina Irvin , Scribe attest that this documentation has been prepared under the direction and in the presence of Agustina Barbosa MD. documented in this [facility] Work Phone: 1([phone]) 121-881608-11-2023 NotePost Operative Note: PreOp Diagnosis: Right sinonasal inverted papilloma, chronic sinusitis Post-Procedure Diagnosis: Same Procedure: 1. Right nasal endoscopy with total ethmoidectomy including sphenoidotomy with tissue removal CPT 06503-U-69 2. Right nasal endoscopy with frontal sinusotomy CPT 92378-C 3. Right maxillary endoscopy with tissue removal 94444-D 4. Extracranial CT image guidance CPT 52862 Surgeon: Familia Resident/Fellow/Other National Business Director: None Anesthesia: GET Estimated Blood Loss (mL): [...] middle turbinate was resected (more content not included)...[facility] 05-15-2023 Miscellaneous Notes* Op Note - Dominick Barbosa MD - 05/15/2023 4:37 PM EDT Post Operative Note: PreOp Diagnosis: Right sinonasal inverted papilloma, chronic sinusitis Post-Procedure Diagnosis: Same Procedure: 1. Right nasal endoscopy with total ethmoidectomy including sphenoidotomy with tissue removal CPT 19360-H-13 2. Right nasal endoscopy with frontal sinusotomy CPT 20209-V 3. Right maxillary endoscopy with tissue removal 38006-H 4. Extracranial CT image guidance CPT 33035 Surgeon: Familia Resident/Fellow/Other National Business Director: None Anesthesia: GET Estimated Blood Loss (mL): [...] 17:00 by Dominick Barbosa) documented in this [facility] Work Phone: 1(398) 256-417508-11-2023 Note* Op Note - Dominick Barbosa MD - 05/15/2023 4:37 PM EDT Post Operative Note: PreOp Diagnosis: Right sinonasal inverted papilloma, chronic sinusitis Post-Procedure Diagnosis: Same Procedure: 1. Right nasal endoscopy with total ethmoidectomy including sphenoidotomy with tissue removal CPT 31874-R-42 2. Right nasal endoscopy with frontal sinusotomy CPT 94898-T 3. Right maxillary endoscopy with tissue removal 95606-D 4. Extracranial CT image guidance CPT 86771 Surgeon: Familia Resident/Fellow/Other National Business Director: None Anesthesia: GET Estimated Blood Loss (mL): [...] Last Updated: 15-May-2023 17:00 by Dominick Barbosa) [facility] Work Phone: 1([phone]) 460-268008-11-2023 History of Present illness Narrative* Wale presents for his first postoperative visit following right-sided sinus surgery in 05/15/23. * Following his surgery he has done well. He has been having some headaches that are controlled with Tylenol. His breathing has been significantly improved. He is rinsing several times per day. He denies significant nasal drainage. [facility] [address] Work Phone: [phone]) 232-531608-11-2023 NoteHistory of Present Illness: History Present Illness: [...] Completion Last Updated: 15-May-2023 11:51 by Dominick Barbosa)[facility]08-11-2023 History and physical note* Dominick Barbosa MD [...] Last Updated: 15-May-2023 11:51 by Dominick Barbosa) [facility] Work Phone: [phone] History and physical note* Dominick Barbosa MD [...] 11:51 by Dominick Barbosa) [facility] Work Phone: [phone] Evaluation note* Encounter Date Diagnosis Assessment Notes Treatment Notes Treatment Clinical Notes Jan, Inverted papilloma of nasal cavity (ICD-10 - D14.0) [employer] Other 04-04-2023 Chief complaint Narrative - Reported* [...] 5. Obstructive sleep apnea on positive pressure QW-Kydlmursmhjtoc-Esoxfbv [facility] [address] Work Phone: [phone] 164-442604-04-2023 History of Present illness Narrative* Reason for visit: * WALE MI patient presents since last being seen 01/06/23. * Wale presents for routine follow-up. He is interested in going forward with his inverted papillomaresection and would like to schedule it as soon as there is availability. WN-Cbvjlpqrvurfbc-Bundaetx Work Phone: [phone]) 520-736204-04-2023 History of Present illness Narrative* Reason for visit: * WALE MI patient presents since last being seen 01/06/23. * Wale presents for routine follow-up. 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 [facility] [address] Work Phone: [phone] Evaluation note* Encounter Date Diagnosis Assessment Notes [...] for congestion, Tylenol for pain and fever. [employer] Other 12-01-2020 History of Present illness Narrative* [...] and is using flonase only as needed. UK-Wzdtmesukkqtqm-Pcngcxkp Work Phone: 1([phone]) [phone] History of Present illness Narrative* Reason for [...] well outside of some nasal breathing issues. CG[facility]Lyvbnhmmajvjmk[facility] [address] Work Phone: Evaluation note* Diagnosis Chronic ethmoidal sinusitis Benign neoplasm of middle ear, nasal cavity and accessory sinuses Benign neoplasm of nasal cavities, middle ear, and accessory sinuses Chronic sinusitis, unspecified documented in this encounter [facility] Work Phone: Evaluation note* Diagnosis Chronic ethmoidal sinusitis- Primary Other chronic sinusitis Chronic sphenoidal sinusitis documented in this encounter [facility] Work Phone: Evaluation note* Diagnosis Chronic ethmoidal sinusitis- Primary Chronic maxillary sinusitis documented in this encounter [facility] Work Phone: Evaluation note* Diagnosis Onset Date Resolution Status Bulging lumbar disc acute Elevated BP without diagnosis of hypertension acute Low back pain acute Obesity acute Wellness examination acute [facility] Work Phone: Evaluation note* Diagnosis Post-nasal drainage- Primary Other diseases of nasal cavity and sinuses Chronic maxillary sinusitis Nasal congestion Other diseases of nasal cavity and sinuses documented in this encounter [facility] Work Phone: Evaluation note* Diagnosis Onset Date Resolution Status Bulging lumbar disc acute Elevated BP without diagnosis of hypertension acute Low back pain acute Obesity acute Wellness examination acute IFG (impaired fasting glucose) acute Acute sinusitis noneactive [facility] Work Phone: Evaluation note* Diagnosis 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, middle ear, and accessory sinuses Chronic sphenoidal sinusitis Chronic maxillary sinusitis documented in this encounter [facility] Work Phone: Evaluation note* Diagnosis 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, middle ear, and accessory sinuses Chronic sphenoidal sinusitis documented in this encounter [facility] Work Phone: History general Narrative [...] ethmoidectomy 08/25/2019 Hospitalization History see surgical history [employer] Other History of Present illness Narrative* Wale [...] 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 WK[facility]Jhstmtihrytbil-[facility] [address] Work Phone: Reason for referral (narrative)No reason for referral information availableAdena [facility] Work Phone: Summary Purpose Family History Unknown [...] Complaint and Reason for Visit Chief Complaint [place] Reason for Visit Bulging lumbar disc Elevated BP without diagnosis of hypertension Low back pain Obesity Wellness examination Chief Complaint [place] [facility] [phone] sinus infection Reason for Visit Bulging lumbar [...] 9pm Obesity January 16, 2025 3:1 9pm Chief Complaint Admit Date Wellness May 23, 2025 2: 56pm Reason for Visit Admit Date Hypertension May 23, 2025 2: 56pm IFG (impaired fasting glucose) May 232024 2:56pm Low back pain May 23, 2025 2: 56pm Obesity May 23, 2025 2: 56pm Wellness examination May 23, 2025 2 :56pm Additional Source Comments (unrecognized sect ion and content) No Status Records FoundNo Status Records FoundNo Status Records FoundNo Status Records FoundNo Status Records FoundNo Status Records Found INFORMATION SOURCE (unrecogn ized section and content) DATE CREATED AUTHOR 03/06/2020 [facility] DATE CREATED AUTHOR AUTHOR'S ORGANIZ ATION 11/24/2022 [facility] DATE CREATED AUTHOR AUTHOR'S ORGANIZ ATION 05/28/2023 [employer] DATE CREATED AUTHOR AUTHOR'S ORGANIZ ATION 06/05/2023 [facility] DATE CREATED AUTHOR AUTHOR'S ORGANIZ ATION 02/14/2025 [facility] DATE CREATED AUTHOR AUTHOR'S ORGANIZ ATION 03/01/2025 [facility] REASON FOR VISIT (unrecogniz ed section and content) Reason Comments Other Right endoscopic sin us surgery with image guidance, right endoscopic medial maxillectomy, septoplasty Reason Comments Follow-up Care Teams (unrecognized sec tion and content) Job Placement Counselor Relationship Specialty Start Date End Date Enzo Coleman DO PCP - General 09/21/19 Job Placement Counselor Relationship Specialty Start Date End Date Enzo Coleman DO PCP - General 09/21/19 Job Placement Counselor Relationship Specialty Start Date End Date Enzo Coleman DO PCP - General 09/21/19 Cristiana Triplett, UTILITY AIDE-ROUNDING MACHINE OPERATOR [address] [place] [address] PCP Dmitry MILLERO PCP 09/04/23 Team Status: Active Member Role Status Dates Enzo Coleman DO Primary Care Provider Active Team Status: Inactive Member Role Status Dates Enzo Coleman DO Primary Care Provide r, Attending Provider Active Start: June 03, 2024 End: June 03, 2024 Job Placement Counselor Relationship Specialty Start Date End Date Virginia Enzo DO Luca PCP General 09/21/19 Team Status: Active Member [...] January 16, 2025 End: January 16, 2025 Job Placement Counselor Relationship Specialty Start Date End Date Enzo ColemanDO PCP General 09/21/19 Team Status: Inactive Member Role Status Dates Enzo Coleman DO Primary Care Provider Active Start: May 23, 2025 End: May 23, 2025 Enzo Coleman DO Attending Provider Active Sta rt: May 23, 2025 End: May 23, 2025 Goals (unrecognized section and content) Goals [...] BE BASED ON THE PRIMARY CLINICAL RECORDS. [facility] [employer] [facility]. provides no warranty or guarantee of the accuracy or completeness of information in this document.
--- OUTSIDE RECORDS SUMMARY | 2025-06-03 08:11 | XMS_ITS | Clinical Summary ---
Author Organization [facility] Address [id number] [place] [address] Care Team Providers Care Medical Pathologist Name Role Phone Unavailable Primary Care Provider Unavailabl e Social History Tobacco Use Types Packs/Day Years Used Date Smoking Tobacco: Never Assessed Childcare Answer Date Recorded Childcare Unknown 03/14/2019 Employment Answer Date Recorded Employment Unknown 03/14/2019 Purpose - Life Answer Date Recorded Purpose and direction in life Unknown Sex and Gender Information Value Date Recorded Sex Assigned at Not on file Legal Sex Male 12:52 PM EDT Gender Identity Not on file Sexual Orientation Not on file Plan of Treatment Health Maintenance Due Date Last Done Comments Depression Screening 2012 Tobacco Screening 2012 Adult BMI Screening 2018 DTaP,Tdap and Td Vaccines (1 - Tdap) 2019 Influenza Vaccine 06/05/2025 [employer] Not on file Insurance [facility] [employer]
--- OUTSIDE RECORDS SUMMARY | 2025-06-03 08:12 | XMS_ITS | Encounter Summary ---
Author Organization [facility] Address [address] [place] [address] Phone Care Team Providers Care Belt Builder Name Role Phone Enzo Vasques DO Primary Care Provider [phone] Encounter Details Date Type Department Care Team (Late st Contact Info) Description 01/07/2024 Patient Risk Score [facility] [address] [place] [address] Social History Tobacco Use Types [...] Description 07/12/2025 3:00 PM EDT Office Visit [facility] [address] [place] [address] Dominick Barbosa MD [address] [place] [address] 01/17/2026 3:15 PM EDT Office Visit [facility] [address] [place] [id number] Dominick Barbosa MD [address] [place] [id number] documented as of this encounter Visit Diagnoses Not on filedocumented in this encounter Additional Health Concerns Assessment Noted Time A fall risk assessment has been complete d for the patient 09/02/2023 3:31 PM EST documented as of this encounter Care Teams Belt Builder Relationship Specialty Start Date End Date Enzo Vasques DO PCP - General 09/21/19 documented as of this encounter
--- OUTSIDE RECORDS SUMMARY | 2025-06-03 08:12 | XMS_ITS | Encounter Summary ---
Author Organization [facility] Address [address] [place] [address] Phone Care Team Providers Care Air Quality Chemist Name Role Phone Enzo Vasques DO Primary Care Provider [phone] Cristiana Triplett SAFETY LEAD-SUBSORTER Unavailable Encounter Details Date Type Department Care Team (Late st Contact Info) Description 05/15/2023 Scanned Document [facility] [address] [place] [address] Conversion, Onbase Social History Tobacco Use Types [...] Health Services [address] [place] [address] Dominick Barbosa MD [address] [place] [id number] 01/17/2026 3:15 PM EDT Office Visit [facility] [address] [place] [address] Dominick Barbosa MD [address] [place] [id number] documented as of this encounter Procedures Procedure Name Priority Date/Time Associated Diagnosis Comments SURGICAL PATHOLOGY EXAM 05/15/2023 documented in this encounter Results * SURGICAL PATHOLOGY EXAM (05/15/2023) Narrative 05/15/2023 Ordered by an unspecified provider. us Onbase Conversion LAB PATHOLOGY ORDERABLES Final Result documented in this encounter Visit Diagnoses Not on filedocumented in this encounter Care Teams Air Quality Chemist Relationship Specialty Start Date End Date Enzo Vasques DO PCP - General 09/21/19 Cristiana Triplett APRN-SUBSORTER [address] [place] [address] PCP - Cyndie ENCISO PCP 09/04/23 01/03/24 documented as of this encounter
--- OUTSIDE RECORDS SUMMARY | 2025-06-03 08:12 | XMS_ITS | Clinical Summary ---
Author Organization [facility] Address [address] [place] [address] Care Team Providers Care Kiln Stoker Name Role Phone Unavailable Primary Care Provider [...] Plan of Treatment Not on file Insurance [facility]
--- OUTSIDE RECORDS SUMMARY | 2025-06-03 08:12 | XMS_ITS | Clinical Summary ---
Author Organization [facility] Address [address] [place] [address] Phone Care Team Providers Care Nurse Anesthetist Name Role Phone Enzo Vasques DO Primary Care Provider [phone] Allergies No known active allergies Medications mometasone furoate, bulk, 100 % powderIndicatio ns:Other chronic sinusitis Compound 2 mg capsule to be added to sinus rinse twice daily. 180 g 3 09/03/2023 Active metFORMIN (Glucophage) 850 mg tablet Take 1 tablet (850 mg) by mouth early in the morning.. 06/17/2024 Active Active Problems No known active problems Social History Tobacco Use Types Packs/Day Years [...] Description 07/12/2025 3:00 PM EDT Office Visit [facility] [address] [place] [address] Dominick Barbosa MD [address] [place] [address] 01/17/2026 3:15 PM EDT Office Visit [facility] [address] [place] [address] Dominick Barbosa MD [address] [place] [address] Health Maintenance Due Date Last Done Comments HIV Screening 2000 Lipid Panel 2000 Yearly Adult Physical 2000 HPV Vaccines (1 - Male 3-dose series) 2015 Hepatitis C Screening 2018 DTaP/Tdap/Td Vaccines (7 - Td or Tdap) 12/22/2022 12/22/2012, 10/31/2004, 08/01/2002, Additional history exists COVID-19 Vaccine (2 - season) 2024 01/10/2021 Influenza Vaccine (#1) 2025 Zoster Vaccines (1 of 2) 2050 [...] on patient's age to complete this topic Insurance [facility] Care Teams Nurse Anesthetist Relationship Specialty Start Date End Date Enzo Vasques DO PCP - General 09/21/19
--- OUTSIDE RECORDS SUMMARY | 2025-06-03 08:12 | XMS_ITS | Encounter Summary ---
Author Organization [facility] Address [address] [place] [address] Phone Care Team Providers Care Public Works Manager Name Role Phone Enzo Vasques DO Primary Care Provider [phone] Cristiana Triplett DINKEY LOCOMOTIVE OPERATOR-NUCLEAR OPERATOR Unavailable Encounter Details Date Type Department Care Team (Late st Contact Info) Description 12/07/2023 Patient Risk Score ACO Care Management [address] [place] [address] Social History Tobacco Use Types [...] EDT Office Visit [facility] [address] [place] [address] Dominick Barbosa MD [address] [facility] [address] [place], [place] [id number] 01/17/2026 3:15 PM EDT Office Visit [facility] [address] [place] [address] Dominick Barbosa MD [address] [facility] [address] [place] [address] documented as of this encounter Visit Diagnoses Not on filedocumented in this encounter Additional Health Concerns Assessment Noted Time A fall risk assessment has been complete d for the patient 09/02/2023 3:31 PM EST documented as of this encounter Care Teams Public Works Manager Relationship Specialty Start Date End Date Enzo Vasques DO PCP - General 09/21/19 Cristiana Triplett APRN-NUCLEAR OPERATOR [address] [place] [address] PCP - Cyndie ENCISO PCP 09/04/23 01/03/24 documented as of this encounter
--- OUTSIDE RECORDS SUMMARY | 2025-06-03 08:12 | XMS_ITS | Encounter Summary ---
Author Organization [facility] Address [address] [place] [address] Phone Care Team Providers Care Fish Hatchery Specialist Name Role Phone Enzo Vasques DO Primary Care Provider [phone] Cristiana Triplett WIND UP OPERATOR-ACCOUNTING ASSISTANT Unavailable Encounter Details Date Type Department Care Team (Late st Contact Info) Description 11/07/2023 Patient Risk Score ACO Care Management [address] [place] [address] Social History Tobacco Use Types [...] Description 07/12/2025 3:00 PM EDT Office Visit [facility] [address] [place] [address] Dominick Barbosa MD [address] [facility] [address] [place], [place] [id number] 01/17/2026 3:15 PM EDT Office Visit [facility] [address] [place] [address] Dominick Barbosa MD [address] [facility] [address] [place] [address] documented as of this encounter Visit Diagnoses Not on filedocumented in this encounter Additional Health Concerns Assessment Noted Time A fall risk assessment has been complete d for the patient 09/02/2023 3:31 PM EST documented as of this encounter Care Teams Fish Hatchery Specialist Relationship Specialty Start Date End Date Enzo Vasques DO PCP - General 09/21/19 Cristiana Triplett APRN-ACCOUNTING ASSISTANT [address] [place] [address] PCP - Cyndie ENCISO PCP 09/04/23 01/03/24 documented as of this encounter
[2025-06-03 08:43] LABS: Hematocrit 43.7 % (42.0-54.0); Hemoglobin 14.1 g/dL (14.0-18.0); Immature Granulocytes Abs Auto 0.02 10^3/uL (0.00-0.03); Immature Granulocytes Pct Auto 0.2 % (0.0-0.5); Lymphocytes Absolute Auto 2.2 10^3/uL (1.2-3.8); Mean Corpuscular HGB Conc 32.3 g/dL (29.9-35.2); Mean Corpuscular Hemoglobin 29.3 pg (25.9-34.0); Mean Corpuscular Volume 90.7 fL (80.0-94.0); Platelet Count 378 10^3/uL (150-450); Red Blood Count 4.82 10^6/uL (4.70-6.10); White Blood Count 9.2 10^3/uL (4.0-11.0)
[2025-06-03 10:34] LABS: Sodium 141 mmol/L (136-145)
[2025-06-03 10:35] LABS: Anion Gap 14.6; Blood Urea Nitrogen 13.0 mg/dL (7.0-18.0); Calcium 9.2 mg/dL (8.5-10.1); Carbon Dioxide 26.8 mmol/L (21.0-32.0); Chloride 104 mmol/L (98-107); Estimated GFR (African America >60 (>=60 mL/min/1.73m^2); Estimated GFR (Non-African Ame >60 (>=60 mL/min/1.73m^2); Glucose 141 mg/dL (74-106); Potassium 4.4 mmol/L (3.5-5.1)
[2025-06-03 10:36] LABS: Alanine Aminotransferase 35 U/L (16-63); Albumin Globulin Ratio 0.7; Albumin Level 3.6 g/dL (3.4-5.0); Alkaline Phosphatase 78 U/L (46-116); Aspartate Amino Transferase 22 U/L (15-37); Cholesterol 142 mg/dL (<=200); Globulin 4.9 g/dL; HDL Cholesterol 38 mg/dL (40-60); Thyroid Stimulating Hormone 3.072 uIU/mL (0.358-3.740); Total Protein 8.5 g/dL (6.4-8.2); Triglycerides 144 mg/dL (<=150); VLDL CHOLESTEROL 28.8 mg/dL
== END 2025-06-03 08:08 | disposition home or self-care (01) ==
PROVIDERS: Family Provider Internal Medicine; PCP Internal Medicine; Visit Provider Internal Medicine
DX: Z00.00 Encounter for general adult medical examination without abnormal findings (principal)
CPT/HCPCS: 36415; 80053; 80061; 84443; 85025

== ENCOUNTER 2025-06-15 12:31 | Outpatient (OUT) | payer BC, SELFPAY ==
--- OUTSIDE RECORDS SUMMARY | 2025-06-15 12:44 | XMS_ITS | CCD ---
Author Organization [facility] CliniSyny Care Team Providers Care Firebrick [employer] Refractory Tile Repairer Name Role Phone Enzo Coleman Unavailable Unavailable [...] vailable Familia, Dr. Dominick Talavera Referring Dolly vakeely Coleman, Dr. Enzo Diallo Primary Care Stephy Barbosa, Dr. Dominick Talavera Attending Dolly gutierrez Barbosa, Dr. Dominick Talavera Admitting Dolly gutierrez Barbosa, Dr. Dominick Talavera Referring Dolly keshianathanieldanuta Coleman, Dr. Enzo Diallo Primary Care Dollyshilpi barlowfred Coleman DO, Enzo Diallo Primary Care Provider U navailable [place] SHER, Enzo Diallo Primary Care Provider Enzo Coleman DO Primary Care Provider Uziel [employer] OPERATOR-CHILD CARE COUNSELOR, Cristiana Jose Unavailable Enzo Coleman DO Primary [...] Unavailable Enzo Coleman DO Primary Care Provider [phone] Enzo Coleman DO Attending Provider [phone] Allergies Allergy Classification Reported Allergen(s) Allergy Type Date of Onset Reaction(s) Facility (8 sources) bee pollen Allergy to substance (finding) -Otolaryngolog [facility] Work Phone: (1 source) patient allergy list reviewed by nurse or physicia Propensity to adverse reactions 6 Comment:Done [employer] Other Medications Current Medications Medication Drug [...] [place] on 01-18-2025 Laboratory comment Pasquale (Report) q7ffeEXpTOQlq0kiEQVueYAcE zEwMzNcZnRuYmpcdWMxIHtccn XfNHdil0GaE7KcYbPrGHxwlbX vQAFyEsyzaxyzEXLaWRQ5msVr NEYrNIhoLKTsHUlvCa0rzSNoh BgsWiBlOEHnw6tmrbJKDBpqVM HURSw9u8mjJEWxBmQ9mVGcAJi cM3htftIltNLrT2Uix6PyJTu9 pO07TPUwuK1ytGXbBYoilcDxW aW1NBkiKVBqKcS1SQZirYKlNH TpJ6syFIUqBTuxVVUkLOfgdEA kVFA8mUzew6Y8aPOtwBXufLya ZeDtQiBfQpRGk2IhYXg9ePwxC 5BiTGYaVxP7bFUcJJBfAAvlTH FnBZKrcmW5xJ17OPnlftI2iOM zl4Ldp80lb699iV3saPXpMXJ1 WFXyFDGnuDAuHDKtRFO2VMSgx WHkX3qhGgRkiPGkB3YdRuAvdT XfG6AsFfZlyHIrW1YjBcZtnAX aAZZglLE9JPton062FNN4OnPg VF6tI8Gdb5D2gN2dxGTyZINup RWdTsLcOKHupr7jrFHuEHthr3 WoRPH3bzC5aVKmiKXzFZBdWL1 0Kvemv5WtQbttIJK9HYAeetQc a6Sae9aoDrOedjIfB5yoC9GuC ECoILDkGOKqFlAabfRbe4Zsq2 GwcOTclNp1t8bjHHUpOJHxeHp tv1adLKF7VEHqW6D7pDMps9hi NByjSXGxyQY5mrY0TWtsJBHxy eX5qfO6YJbwFILkkPG5frD2XX ucAXGtCiZ0btT8QJbmYWAcMHP 8ScLnOWRjq9GotrkpCuTsb3Nb kRDnVUabT82rv772HNQuljJhS 1xwbGFpblxwbGFpblxmMFxmcz M2XPIdMGHwCLsoNRVbHCWnKbJ cbGFuZzEwMzNcaGljaFxmMVxk HlIcYPTvTKuyV0xcSmRwNwGuU YOVkZG6uIBcn5wtprC8sNNcSX 7jCVVbwIQydaKxo5K0CCQ1cOH ygQ8rjVYeQNOhhMNrrgQckq74 cWBgdRL3THJgNCLcqUOctU8vA MAkWETHiU7esQAOseXqpfSvBY ZdpIyjms4ToNHent2stJDnZ0B ydGlmaWVzIHRoYXQgdGhleSBo PUXlAHKaaokdk9CmOASemVRbV 3SvFF7cPAWzua96 [facility] Work Phone: Pathology report Cancer Narrative Surgical Pathology Case: [id number] Authorizing Provider: Dominick Barbosa MD Collected: 01/11/20250 Ordering Location: [facility] Received: 01/11/2025 162 Pathologist: Claudio Ireland MD Specimen: SINUS MASS RIGHT [facility] Work Phone: Pathology report final diagnosis Narrative w2xrwNCaVROtyDVgOGIhTXcti aFhHABspFGrJ8ClckevMDdlFN 0mJY5kqAlkzCQfiJKcDUTkUpK ws3gse030pEFmb6gvDBFFrymt rDt3pTwhB34zb5E9QuqyO8tuI LDnZUmbONNqGRugzYJlVDu7XG BhcGVydzEyMjQwXHBhcGVyaDE 8ORSyTI2tlqrmOZeaGPowFPVp lbF6PCKezIApV3DiODKjWE0yn dwpYTU1WTorODWvBHC5JrPpAA Gfw0Xnlbm0EmFdjUy8w0rnKMZ hZKEdaTeoa7fhGMJ8KBIgpHNg M5sziH2mUFBqOE8ehihys7edU ErtBDgrEREttPS6snL5WCLtjS TmL4GhiJ1fTZMiQYExfuGpqEj uoR2rBdMwMydrZmTbXnepsWOs e1wulKSwpAFpnyxcySRdCEAcC JXsrZObB4eou67gn3PoXONotM qfcU4lVZvosM02PVO1GPKfwSo kPFybrQ56p8q2yE5sMGAxYPpe NvcqiQ7dbY1szBFanM7hxtSdS CeawP2nsKZwHXTvoelbccYsk9 fwHL2qVUfgB4tgG2ZeFSCdYFk uwYokw4jdLO1wIQkylaUsdAEr TXGkcxNhpw6qAEQlMHXlyNoun QGqBunhDUIgYL5kHIOdPZVZw4 U1rL0aEF5yJSAijkCkp4a5oAW axxYciMtvfABhK4GkrVXaHMNt w3ffB0jfJPBfnbIayuhnDpjyD ZMnfLFoWJeez5szNPB2 [facility] Work Phone: Pathology report gross observation Narrative v0jftAMmQXApqKGINLC1WFHnP Q5mdEcgrWk6xAdwZIHfxzE4nD ZzTPvrn7qmMBI2l9dfscILIax rDGLqBP1jNIlyVKUuNP2kNmOf XGRlZmYxXHBhcGVydzEyMjQwX HQrbLAwgNJ5GZQiFU6rscrsSZ ukTKdaSYOvseW2ZMGpxYTzX9Z tUUVoZX7qzlpdZEF5INJKRlmc Wv3qdDNilZGUWhriWtUkDpWrJ LUmISTwWBCmp3syggEAUIbcHH DMJNp2GSz0IHIyUBNcpJJbr1O 1YMjsi2oxr6NnAYWtBMp0hX7D IhwjQOS2OACGHozrVqhalHqti 2VjdCBcXHNnIFxcaWQgNTEwMD YfSTzoXiOXJcNrXsKvPzw0VSK 4VEGuGWh9WWbdTuEVMDIwNJI9 TSDaEIn1ZAuxPJrrhXMmZVMhW JVgHIAkRIzrsvB9j7vlUKSkjN ArSMJ4ZVyta2piCVqvKST7BOK cYfHcWVCeOA6FBkNxMUC7YVH5 MCz8PuV7UEi0FAADHdBwZeWhH Qg6LfW4VaJzRCc0ZSx3UEyNRp ArYAexZAv0IML4PQE6WfZ5WMy eagdbFDp6EFVjFSchgkIfHYzi MkslNWthS79liLUpSATOHgkuy GFpblxlcGljTmVzdERvYzEgDQ igqYStdOFoCM2WGVl4ivQdALT uUYGbHzJhMgGeCOb2SYGspE9k Ie7usSOucF4cEXpmGgBbEVFkf 8h0vGT8tLMvkCA7mJQrmHwaEO 2wiAUiPB2hALtwr4UdlIQtPB4 5xXYxdqEkhlEeVwDtccLzGF6f h7PyyflyjKUrMFGorxTqNMJhf Owna3anAHEhG11vtyXpn1CgzD XgMNjjpDHuMTQyDyIbhAfzt3X bRL0sEQT6wditNkVcWhWvfIRw GzcuxRRaCopkY57xKQBEvEMzt OMvj7EtBDHsiZDmF5vbVC3aAO Crw6XeiEygthNlwcWkdwgvAFU ntSSaILHhEHB4bPZxj5DqD2nr OM6ydFByUwpsFZH3HMXhNWRTv NUhh5IkC2geMA0svMHlFE04dN FcwEwrf2FurDh5xJSoNSptGK9 tAYSzOJNpMTN6YY3trNEuGY8S PAZkVkWaBHLnS3esRESsXH7SD 83JEMpeKTHlS65rx2JCv4Roq7 swtTtkk0TddTKhNV99VUGeySI sRDQ9OP7oqHvzZUOpADtyrWFe ZCANClxwbGFpbiANCn0= [facility] Work Phone: Pathology report relevant history Narrative b0zquBHtRSZwa1lmZVLnjSAvC rNpGhDqLwDnYzt0SZIpsoB3Ii y3MUSiYHjpyF6sJCKdWAehV3n bedDfeTQmBKLuLBg5uI7woJmo oK8rQaMoVqHoPZTTgCtzkg2zP XNdIDAdpzLrjMJjg4koLMFtlZ == [facility] Work Phone: [facility] Work Phone: Surgical pathology studyon 0 01-11-2025 Surgical pathology study Pathology report.total SEE COMMENT Surgical Pathology Case: [id number] Authorizing Provider: Dominick Barbosa MD Collected: 01/11/20251619 Ordering Location: [facility] Received: 01/11/2025 1620 Pathologist: Claudio Ireland [...] specimen is entirely submitted in one cassette. [facility] Surgical pathology studyOrde red By: Shakir Ford on 07-19-2024 Laboratory comment Pasquale (Report) l2dtrKTkJPViw8kwVJFlsGSiL zEwMzNcZnRuYmpcdWMxIHtccn FzVMmpg7DqC3PlJrDsHMxwcfR dOOTcDokqvpeaYYUrQUQ0vzSw AEIjALzxMMRnXRghNm2jyYUta DclKcVhVQTxb7kgarNXZTlqAB HCNAe7v7idQLKdVvB1yGLiOXg pD4ifnvGafXOlR8Jvl2OdRVj2 pV85JMPjtT4azZGrGGlbdxMvW qP6NAcjDPMiUfU6RSZpqJDjHG AxO4jrLEAcHHqxDSJcLZyavAR xWQL6bEzuq6J4nLGskMJxjJdh OwXoDuCdClSKi2GdHVj3wKzgH 8RfXTVtSaI6bTPgQVPpELumGD YwUOTtlqC1aK65YEevrfV3oDA qq7Nej61lu459bE3tmYFkOJD7 PIJjBICskIHiDTGqJAE3AUBek SXeY5xdMdZchTHvB6KpVpJpyU TnU4BkFnCjmVRwN5TaNhUifPK pBVNnyJY8LSqwo610VBN8MhXg EG0cF6Duf2T1mR1qtDHvPGCen BPhHpVwIISdvl9gtROpGYojn2 UuMUY1yzB7tYOulFXxFOBiBL5 4Rkgci8PlQqihQSB7SVIumdJe m5Hhc1ewHtDvjiFqB3exC5YhI EEeZIAaIQKcRgSbxoOss5Asz5 GetQWskPk4z9uyPGTiXZXhpHp ox8xqHCZ5YHBoF2M6vFJap7mb TUpaQAZpsAU7tnU8DVpfKOKhx bV3maU6JPeoTONuqAU4umM2GV asDDIyLyW7ijJ1LEbhVKAnGEZ 2JqYwNIDrz9RzygiqHiYqk6Og eAKrIVptE03uf365JFMljwXrJ 1xwbGFpblxwbGFpblxmMFxmcz Q6ZKXjUNOhYRgbNEGzOJFkNeE cbGFuZzEwMzNcaGljaFxmMVxk SjIaHAAiYRqpT9ejMdRoAwNqB FYOwJC6nVPww4hmgpH8lBSzJQ 4mNKHcwJSdmmRzl7V9UXE8nNG xoC6bsBZgNFTguRIcocArmr48 qOXyxNG5ERXaBPVjbOAbpK4bU AEgIKKZvS3bqJINqdSnvkYwOW DxfBajkz1ZzGOfss3oeYKlY6G ydGlmaWVzIHRoYXQgdGhleSBo NYWvQGLmhyfed0SaHEYjbFQlX 6LdRR7sABCdnr47 [facility] Work Phone: Pathology report Cancer Narrative Surgical Pathology Case: [id number] Authorizing Provider: Dominick Barbosa MD Collected: 07/13/2024 1405 Ordering Location: [facility] Received: 07/13/2024 1405 Pathologist: Shakir Ford DDS Specimen: NASAL MASS RIGHT BIOPSY [facility] Work Phone: Pathology report final diagnosis Narrative v7dedLXhEWOlhKBwFQovAfash pKqKZMtnZQxO2IaqsgfWVcoXG 4oBX2ojRjezZEweAQuKBPlArX xt1khu730qPUdy3zzUAJOsqha aDo0aOytM34pp9B2IyekC1cqQ FEaUHtkFALiYWxaoBMdWQw7EH BhcGVydzEyMjQwXHBhcGVyaDE 3GZDbAV8ppuapDVugPFbdJCHx kuI1BTXlnYPlQ3QxUWSyHQ2fi htnBSE9DWzuRDOyUZZ8UsSmJF Aji8Rnxki8QcYtiZp3k0lzVZV cZTKqmHjqu3ffZPA5TEMsnNPb R4vmjC3tNCYuII0odrmje6xkA ZevCShzCBRwxZX2ypC3BXYuhV FzS5FraD1fXPEqSCKksqCtlQx brS9yKyGxHlivLbKmClSwODwi X8V9vAQ0JFPjkDfneECwEUSaZ MLebI9le8b3TLByawqroiCml4 kpGFDenv5pBKLtvXUrmPTco3U wUU4xMTDwlz5lxRBjdK9pyJBh yPP4oF6oGLdysYrqDJAvgQH8j 8JaKQY8gz9vWGocO10gk5lkxV KlhNR3dALwXODlep2rGPVowNH oikVwIL1uNHVbqzfjqV1taMJy XHBhcn0= [facility] Work Phone: Pathology report gross observation Narrative p1dzqLJqPEKluWVOMSD4LVTjV L9bsDvskNp7lGagOMCexjU4xI OwSTkwu5rqHUA6q9gdizGEJsm rKJKdWF8pVLwvPAWpYR3gIaQh XGRlZmYxXHBhcGVydzEyMjQwX CHydTYvwVE0DSYiBE2hkfyvMM bdDPcuYKMgksQ8WSDuuRKgV5X hUMMsNR6qvwvxYBH9MFWZVjks Vp5jxYNkjASGWcevCrOwKiAlR SBnIIXqAIWgu2pkbeGYZEycDN QFYPq4DSi9CLTcEPSbhMAng4K 3LVxja7rfz1BrTFRrRGd4jS5M PfpiHFC5OZMFDfmvMjdhvWwtj 2VjdCBcXHNnIFxcaWQgNTEwMD SjEVrnVoTLAaLxVwCaOSU1UIk 2KmFhWPp9MWkpNsOYSXD8GJe9 WjfoOQs2JEjyPNseeNUjICKpL DHiUJTmVHvnwuD3w4icXVVjkS PbSKF9GUlqv6dyMKfbZYU6UAS hCzJbBCVuTD8BBrErOCB3PeS2 BdesLgP3JOa4QAIWEgCyErFeA CQrXgl7FVjzODl5VDc8FHgXLj KbCFL4SgXlHQFgKOE6YQX7RWj igcarGIm8MCHdEWdhlbQlNUyk EcdjRWhbI93jeBZeENBKPttry GFpblxlcGljTmVzdERvYzEgDQ ucuIJqiJQnFM6PBHy1lrGiHYD aRKRhDoJoZCciCkKnAZv7IWEo eA9oIa9flQFalE3vBOdcUxRlB ZXvb7t9eVQ2qNIyuQJ0eMHkqN esTF4ykQNeJH9yFNmpk0HauKS oZT38cZTotjGdenKvBd0go1Lc DL0mp5DbEjfdpIP1ZBOpE6h8K acaXVKpBK63fAXppWzpCHMnbt RmA5IuXTYbp1NcxHFljCDjg2J gdGFuLXdoaXRlIHNvZnQgdGlz r2XjPJVgA6JhN9J4jW8fKMOkE DHxAPY1AOPkCjY6BEMmIWTmaY 9nUZMsSBLttRVebQ6ueyFqhpR eiXQalLD9FLGaqW5sbZ72ezYv saIqzkLfM1Ssq1W8rBFcZITdg hPPEcglTRMkVOWciBOZs1GtTR SVBjPGEo3CNPLqzEKUXDG3RZ3 nOPbsHNZeJ1LnN6WsyyP8g1ja rWyrv8OghQTnXW1yrMNfEX6UD EYijhGjAJjscGemzO6aWOt2 [facility] Work Phone: Pathology report relevant history Narrative r3pgiIVqLJOis4ahHTUlqFSjT nIdSsJsKsWhRvn9ICHavuL8Sn e1PADaDDoppB6pMEBiRJgdH1j snuAuaBSxTMSwEUj6hK1cnAtc yZ8dTkOaEgZdPSHisTXcncazN X4plHafaOWyoWSgzX32d5i9nQ NccGFyIH0= [facility] Work Phone: Resident Review x1zqiDLsYINyxJYeKNro Mlxhb tVyTCPzuKFlY2JtzsnrVSgnKZ 2jYK0neSckuIZjyJXuYWGqVoG hw9xar335wDRlm6gvNHHUrzyc vJy7jTknI44pb4Q4WgraP60dt EQtPFR5XTJfJBFjuWXoIHZbLK K1GTAdzJOeX8swUTCgMD3xbgq kSPnvABmrUBUftCK7RRCdzTUa K0PtDQCyKZxdSUXolnd9ZtUzO y1lvTIfxQbbUWybXUHpSORzYS wqKZZePoCgAMsyLXvge4WuIID rAK6zmqAzkFGoy8Mfr5KlXyZb oR4gyY6uukM7GZHqZLQvciyke 1QfMSptRXUtqfr6roZ2kU8jWJ vsoFlwbGR7eY5pl8w6REWgn8v tAY55VHYBIC5gqAGpQ4ZkfP7e FYDQYO2ahRPcDUNrfgDygKVqk Q== [facility] Work Phone: [facility] Work Phone: Surgical pathology studyon 1 Surgical pathology study Pathology report.total SEE COMMENT Surgical Pathology Case: [id number] Authorizing Provider: Dominick Barbosa MD Collected: 07/13/2024 1408 Ordering Location: [facility] Received: 07/13/2024 1405 Pathologist: Shakir [...] Basophils (Bld) [#/Vol] 0.1 10 3/uL 0.0-0.1 [facility] Basophils/100 WBC Auto (Bld) on 06-08-2024 Basophils/100 WBC (Bld) 1.2 % 0.2-2.0 [facility] Cholesterol in LDL Calc [Mas s/Vol]on 06-08-2024 Cholesterol in LDL [Mass/Vol] 66.0 mg/dL [facility] Comment on above: <100 mg/dl [id number] 0-129 mg/dl NEAR OR ABOVE FHKTUMQ656-386 mg/dl BORDERLINE RKHV498-734 mg/dl HIGH>190 mg/dl VERY HIGH Cholesterol in VLDL Calc [Ma ss/Vol]on 06-08-2024 Cholesterol in VLDL [Mass/Vol] 43.0 mg/dL [facility] Eosinophils/100 WBC Auto (Bl d)on 06-08-2024 Eosinophils/100 WBC (Bld) 3.1 % 0.9-7.0 [facility] Erythrocyte distribution wid th Auto (RBC) [Ratio]on 06-08-2024 Erythrocyte distribution width (RBC) [Ratio] 13.0 % 11.0-15.0 [facility] Estimated glomerular filtrat ion rate (GFR) non- Americanon 06-08-2024 GFR/1.73 sq M.predicted among non-blacks MDRD (S/P/Bld) [Vol rate/Area] mL/min/{1.73_m2} >=60 [facility] Globulin Calc (S) [Mass/Vol] on 06-08-2024 Globulin (S) [Mass/Vol] 4.1 g/dL [facility] Glucose mean value [Mass/vol ume] in Blood Estimated from glycated hemoglobinon 06-08-2024 Average glucose Estimated from glycated hemoglobin (Bld) [Mass/Vol] 128 mg/dL [facility] Hematocrit Auto (Bld) [Volum e fraction]on 06-08-2024 Hematocrit (Bld) [Volume fraction] 45.3 % 42.0-54.0 [facility] Hemoglobin [Mass/volume] in Bloodon 06-08-2024 Hemoglobin (Bld) [Mass/Vol] 14.6 g/dL 14.0-18.0 [facility] Laboratory - Chemistry and C hemistry - challengeon 06-08-2024 Albumin [Mass/Vol] 3.6 g/dL 3.4-5.0 [facility] ALP [Catalytic activity/Vol] 86 U/L 46-116 [facility] ALT [Catalytic activity/Vol] 46 U/L 16-63 [facility] AST [Catalytic activity/Vol] 27 U/L 15-37 [facility] Bilirubin [Mass/Vol] 0.5 mg/dL 0.2-1.0 [facility] Calcium [Mass/Vol] 9.3 mg/dL 8.5-10.1 [facility] Chloride [Moles/Vol] 100 mmol/L 98-107 [facility] Cholesterol [Mass/Vol] 147 mg/dL <=200 [facility] Cholesterol in HDL [Mass/Vol] 38 mg/dL Low 40-60 [facility] Comment on above: > or =60 mg/dl - LOW CARDIOVASCULAR RISK<40 mg/dl - HIGH CARDIOVASCULAR RISK CO2 [Moles/Vol] 28.7 mmol/L 21.0-32.0 [facility] Creatinine [Mass/Vol] 0.93 mg/dL 0.70-1.30 [facility] GFR/1.73 sq M.predicted MDRD (S/P/Bld) [Vol rate/Area] mL/min/{1.73_m2} >=60 [facility] Glucose [Mass/Vol] 121 mg/dL High 74-106 [facility] Potassium [Moles/Vol] 4.2 mmol/L 3.5-5.1 [facility] Protein [Mass/Vol] 7.7 g/dL 6.4-8.2 [facility] Sodium [Moles/Vol] 138 mmol/L 136-145 [facility] Triglyceride [Mass/Vol] 215 mg/dL High <=150 [facility] TSH Qn 3.486 m[IU]/L 0.358-3.740 [facility] Urea nitrogen [Mass/Vol] 16.0 mg/dL 7.0-18.0 [facility] Urea nitrogen/Creatinine [Mass ratio] 17.2 mg/mg [facility] Laboratory - Hematology and Cell countson 06-08-2024 HbA1c (Bld) [Mass fraction] 6.1 % 4.5-6.2 [facility] Comment on above: ADA RECOMMENDED LIMI T 4.0 - 6.0ADA THERAPEUTIC TARGET < 7.0ACTION SUGGESTED> 7.0 Immature granulocytes/100 WBC (Bld) 0.3 % 0.0-0.5 [facility] Leukocytes [#/volume] correc giselle for nucleated erythrocytes in Blood by Automated counon 06-08-2024 WBC corrected for nucl RBC Auto (Bld) [#/Vol] 7.2 10 3/uL 4.0-11.0 [facility] Lymphocytes Auto (Bld) [#/Vo l]on 06-08-2024 Lymphocytes (Bld) [#/Vol] 2.3 10 3/uL 1.2-3.8 [facility] Lymphocytes/100 WBC Auto (Bl d)on 06-08-2024 Lymphocytes/100 WBC (Bld) 32.3 % 20.5-60.0 [facility] MCH Auto (RBC) [Entitic mass ]on 06-08-2024 MCH (RBC) [Entitic mass] 29.0 pg 25.9-34.0 [facility] MCHC Auto (RBC) [Mass/Vol]on 06-08-2024 MCHC (RBC) [Mass/Vol] 32.2 g/dL 29.9-35.2 [facility] MCV Auto (RBC) [Entitic vol] on 06-08-2024 MCV (RBC) [Entitic vol] 89.9 fL 80.0-94.0 [facility] Monocytes Auto (Bld) [#/Vol] on 06-08-2024 Monocytes (Bld) [#/Vol] 0.4 10 3/uL 0.3-0.8 [facility] Monocytes/100 WBC Auto (Bld) on 06-08-2024 Monocytes/100 WBC (Bld) 6.1 % 1.7-12.0 [facility] Neutrophils Auto (Bld) [#/Vo l]on 06-08-2024 Neutrophils (Bld) [#/Vol] 4.1 10 3/uL 1.4-6.5 [facility] Neutrophils/100 WBC Auto (Bl d)on 06-08-2024 Neutrophils/100 WBC (Bld) 57.0 % 43.0-75.0 [facility] No Panel Informationon 06-08 Eosinophils # (Auto) 0.2 10 3/uL 0.0-0.7 [facility] Immature Granulocyte # (Auto) 0.02 10 3/uL 0.00-0.03 [facility] Platelet mean volume Auto (B ld) [Entitic vol]on 06-08-2024 Platelet mean volume (Bld) [Entitic vol] 10.0 fL 9.5-13.5 [facility] Platelets Auto (Bld) [#/Vol] on 06-08-2024 Platelets (Bld) [#/Vol] 355 10 3/uL 150-450 [facility] RBC Auto (Bld) [#/Vol]on RBC (Bld) [#/Vol] 5.04 10 6/uL 4.70-6.10 [facility] Serum or plasma albumin/glob ulin mass ratioon 06-08-2024 Albumin/Globulin [Mass ratio] 0.9 {ratio} [facility] Serum or plasma anion gap de terminationon 06-08-2024 Anion gap [Moles/Vol] 13.5 mmol/L [facility] Serum or plasma total choles terol/high density lipoprotein (HDL) cholesterol mass maria luz 06-08-2024 Cholesterol.total/C holesterol in HDL [Mass ratio] 3.9 {ratio} [facility] Comment on above: 3.3 - 4.4 [...] reviewed this case. Diagnostic interpretation performed at [facility], [place], operated [facility] [address] [address] [facility] [address] Clinical History: Physician Contact Number: [phone] Fixative (A): Saline Fixative (B): Saline Clinical [...] specimen is entirely submitted in 7 cassettes. [facility] B: Received in formalin, labeled with the patient's name and hospital number and B, microdebrider contents , are multiple, irregular segments of blood and soft tissue aggregating to 5.4 x 3.7 x 1.5 cm. Guest Services Coordinator sections are submitted in 8 cassettes [facility] Note: Per the pathologist, the rest of specimen B is submitted in toto in 17 additional cassettes. 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 Please feel free to contact my office by calling [phone] with any questions. Provider Impressions 1. Inverted [...] (Please see procedure below.) SINONASAL ENDOSCOPY (CPT 23942): To better evaluate the patient's symptoms, sinonasal [...] free to contact my office by calling [phone] with any questions. Provider Impressions 1. Inverted [...] day Tylenol TABS Vitals Vital Signs Recorded: [id number] 07:57AM Height6 ft Wjdugt653 lb 8 oz BMI Jzbqaclokk59.81 kg/m2 BSA Calculated2.89 Tobacco Useb) No Falls [...] (Please see procedure below.) SINONASAL ENDOSCOPY (CPT 76450): To better evaluate the patient's symptoms, sinonasal [...] May 27 2023 8:22AM EST (Author) Normal Hubs1 Tobacco Screening.on 023 Fall risk assessment a) No falls within the last year 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 Please feel free to contact my office by calling [phone] with any questions. Provider Impressions 1. Inverted [...] asked him to reach out to my placement secretary and we discussed some time parameters [...] TIMES DAILY NEEDED. Vitals Vital Signs Recorded: [id number] 12:20PM Height6 ft Wvjrfr021 lb 3.2 oz BMI Wixxchhqbx96.31 kg/m2 BSA Calculated2.91 Tobacco Useb) No PHQ-2 [...] (Please see procedure below.) SINONASAL ENDOSCOPY (CPT 29903): To better evaluate the patient's symptoms, sinonasal [...] Screening.on 023 Adult depression screening assessment No [facility] Work Phone: Fall risk assessment a) No falls within the last year [facility] 4[facility] Work Phone: Tobacco use status CPHS b) No -Otolaryng [facility] 4100 Work Phone: No Panel Informationon 05-15 [facility] Work Phone: Order Reconciliationon 05-15 Order [...] Assistance Level: (more content not included)... Normal [facility] [place] Patient Profile - Preop v3on 05-15-2023 Patient Profile - Preop v3 Patient Profile - Preop: Initial Info: Patient DemographicsName: WALE [place] Date: 2000 Address: [facility] [address], [address] Primary Phone [phone] How to be AddressedDylan Spoken Language PreferredEnglish Stated Reason for Admissioninverted papilloma Primary Contact Name and Numbereve Stern [phone] Limitations on Visitors/Phone Callsnone Medications Brought to Hospitalno General Health: Weight in kg185.1 kilogram(s) Weight in yyt081 pound(s) Height in feet5 feet Height in ozhwbx49.97 inch(es) Height in cm182.8 centimeter(s) BMI (kg/m2)55.392 square meter Patient or Family Member Reaction to Anesthesiano previous reaction Blood Avoidance/Restrictionsnon e Previous Transfusion Reactionno Health Mgmt: Symptoms/Conditions Managed at Homerespiratory Respiratory Symptoms/Conditionssleep disordered breathing Barriers to Managing Healthnone Relationship/Environ: Lives Withparent(s) Living Arrangementshouse Living Environment Commentsmom Resource/Environmental Concernsnone Anticipated Transition T[facility] Services Anticipated at Transitionnone Tobacco Use: Tobacco [...] Updated: 15-May-2023 11:21 by Ginny Cohen) Normal [facility] Surgical Pathology Depar tmenton 05-15-2023 [facility] Surgical Pathology Department Name WALE [place] Pathologist: [...] reviewed this case. Diagnostic interpretation performed at [facility] [place], operated by [facility] [id number] [place] [id number] Clinical History: Physician Contact Number: [phone] Fixative (A): Saline Fixative (B): Saline Clinical [...] specimen is entirely submitted in 7 cassettes. [facility] B: Received in formalin, labeled with the patient's name and hospital number and B, microdebrider contents , are multiple, irregular segments of blood and soft tissue aggregating to 5.4 x 3.7 x 1.5 cm. Guest Services Coordinator sections are submitted in 8 cassettes [facility] Note: Per the pathologist, the rest of specimen B is submitted in toto in 17 additional cassettes. [facility]/05/19/2023 [facility] Department of Pathology [address] [place] [address] Normal [facility] [place] Comment on above: Performed By: #### U HCS #### [facility] Surgical Pathology Department [address] [address] [facility] [address] BASIC METABOLIC PANELon 08-0 Anion gap [Moles/Vol] 16 mmol/L Normal 10 - 20 [facility] [place] Comment on above: Performed By: #### B MP #### [facility] [address] [place] [address] Calcium [Mass/Vol] 9.8 mg/dL Normal 8.6 - 10.6 [facility] Comment on above: Performed By: #### B MP #### [facility] [address] [place] [address] Chloride [Moles/Vol] 101 mmol/L Normal 98 - 107 [facility] [place] Comment on above: Performed By: #### B MP #### [facility] [address] [place] [address] Creatinine [Mass/Vol] 0.81 mg/dL Normal 0.50 - 1.30 [facility] [place] Comment on above: Performed By: #### B MP #### [facility] [address] [place] [address] eGFR MALE >90 Normal >90 [facility] [place] Comment on above: Result Comment: CALC ULATIONS OF ESTIMATED GFR ARE PERFORMED USING THE 2020 CKD-EPI STUDY REFIT EQUATION WITHOUT THE RACE VARIABLE FOR THE IDMS-TRACEABLE CREATININE METHODS. https://jasn.asnjournals.org/content/early/ASN.01610162 88 Performed By: #### B MP #### [facility] [address] [place] [address] Glucose [Mass/Vol] 81 mg/dL Normal 74 - 99 [facility] Comment on above: Performed By: #### B MP #### [facility] [address] [place] [address] HCO3 (Bld) [Moles/Vol] 27 mmol/L Normal 21 - 32 [facility] [place] Comment on above: Performed By: #### B MP #### [facility] [facility] [address] [place] [address] Potassium [Moles/Vol] 4.5 mmol/L Normal 3.5 - 5.3 [facility] [place] Comment on above: Performed By: #### B MP #### [facility] [address] [place] [address] Sodium [Moles/Vol] 139 mmol/L Normal 136 - 145 [facility] Comment on above: Performed By: #### B MP #### [facility] [address] [place] [address] Urea nitrogen [Mass/Vol] 13 mg/dL Normal 6 - 23 [facility] [place] Comment on above: Performed By: #### B MP #### [facility] [address] [place] [address] CBCon 05-12-2023 Erythrocyte distribution width (RBC) [Ratio] 13.0 % Normal 11.5 - 14.5 [facility] [place] Comment on above: Performed By: #### C BC #### [facility] [address] [place] [address] Hematocrit (Bld) [Volume fraction] 47.2 % Normal 41.0 - 52.0 [facility] [place] Comment on above: Performed By: #### C BC #### [facility] [address] [place] [address] Hemoglobin (Bld) [Mass/Vol] 14.4 g/dL Normal 13.5 - 17.5 [facility] [place] Comment on above: Performed By: #### C BC #### [facility] [address] [place] [address] MCHC (RBC) [Mass/Vol] 30.5 g/dL Low 32.0 - 36.0 [facility] [place] Comment on above: Performed By: #### C BC #### [facility] [address] [place] [address] MCV (RBC) [Entitic vol] 94 fL Normal 80 - 100 [facility] [place] Comment on above: Performed By: #### C BC #### [facility] [address] [place] [address] NUCLEATED RBC 0.0 /100 WBC Normal 0.0-0.0 [facility] Comment on above: Performed By: #### C BC #### [facility] [address] [place] [address] Platelets (Bld) [#/Vol] 400 10*3/uL Normal 150 - 450 [facility] [place] Comment on above: Performed By: #### C BC #### [facility] [address] [place] [address] RBC 5.03 x10E12/L Normal 4.50 - 5.90 [facility] Comment on above: Performed By: #### C BC #### [facility] [address] [place] [address] WBC (Bld) [#/Vol] 9.2 10*3/uL Normal 4.4 - 11.3 [facility] Comment on above: Performed By: #### C BC #### [facility] [address] [place] [address] Laboratory - Chemistry and C hemistry - challengeon 05-12-2023 Anion gap [Moles/Vol] 16 mmol/L 10 - 20 [facility] 4100 Work Phone: [phone] Calcium [Mass/Vol] 9.8 mg/dL 8.6 - 10.6 [facility]Geovanni laryng ology-[facility] 4100 Work Phone: [phone] Chloride [Moles/Vol] 101 mmol/L 98 - 107 [facility] 4100 Work Phone: [phone] CO2 [Moles/Vol] 27 mmol/L 21 - 32 [facility]-Otolar yng [facility] 4100 Work Phone: [phone] Creatinine [Mass/Vol] 0.81 mg/dL See Below [facility]-Otolaryng ology-[facility] [place] 449640 Work Phone: [phone] Comment on above: Reference Range: 0.5 0 - 1.30 Glucose [Mass/Vol] 81 mg/dL 74 - 99 [facility] laryng [facility]logy[facility] 4100 Work Phone: [phone] Potassium [Moles/Vol] 4.5 mmol/L 3.5 - 5.3 [facility] 4100 Work Phone: [phone] Sodium [Moles/Vol] 139 mmol/L 136 - 145 [facility] laryng [facility] 4100 Work Phone: [phone] Urea nitrogen [Mass/Vol] 13 mg/dL 6 - 23 [facility] 4100 Work Phone: [phone] Laboratory - Hematology and Cell countson 05-12-2023 Erythrocyte distribution width (RBC) [Ratio] 13.0 % See Below [facility]tolaryng [facility] 4100 Work Phone: Comment on above: Reference Range: 11. 5 - 14.5 Hematocrit (Bld) [Volume fraction] 47.2 % See Below [place] [address] Work Phone: Comment on above: Reference Range: 41. 0 - 52.0 Hemoglobin (Bld) [Mass/Vol] 14.4 g/dL See Below [place] [address] Work Phone: Comment on above: Reference Range: 13. 5 - 17.5 MCHC (RBC) [Mass/Vol] 30.5 g/dL below low threshold See Below [place] [address] Work Phone: Comment on above: Reference Range: 32. 0 - 36.0 MCV (RBC) [Entitic vol] 94 fL 80 - 100 [place] [address] Work Phone: Platelets (Bld) [#/Vol] 400 10*3/uL 150 - 450 [place] [address] Work Phone: RBC (Bld) [#/Vol] 5.03 {x10E12/L} See Below [place] [address] Work Phone: Comment on above: Reference Range: 4.5 0 - 5.90 WBC (Bld) [#/Vol] 9.2 10*3/uL 4.4 - 11.3 [place] [address] Work Phone: No Panel Informationon 05-12 >90 >90 [place] [address] Work Phone: Comment on above: CALCULATIONS OF AMANDA MATED GFR ARE PERFORMED USING THE 2020 CKD-EPI STUDY REFIT EQUATION WITHOUT THE RACE VARIABLE FOR THE IDMS-TRACEABLE CREATININE METHODS.https://jasn.asnjournals.org/content//ASN. 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 Provider Impressions 1. Inverted [...] DAILY UNTIL FINISHED. Vitals Vital Signs Recorded: 36Vhb3810 01:56PM Height6 ft Zfjimg852 lb 9 oz BMI Xftmcstzqv96.63 kg/m2 BSA Calculated2.91 Tobacco Useb) No PHQ-2 [...] Adult depression screening assessment No -Otolarynjosef Person [employer] Work Phone: Fall risk assessment a) No falls within the last year [employer]Jennifer molina Work Phone: Tobacco use status CPHS b) No [facility]-Otolarynjosef olmerlyny-Kateryna [employer] Work Phone: Established Visit (Otolaryng ology)on 01-06-2023 Established Visit (Otolaryngology) Diagnoses/Problems Chronic ethmoidal sinusitis (473.2) (J32.2) Chronic maxillary sinusitis (473.0) (J32.0) Nasal congestion (478.19) (R09.81) 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 Provider Impressions 1. 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 Please feel free to contact my office by calling [phone] with any questions. Provider Impressions 1. Inverted [...] No Reported Medications Vitals Vital Signs Recorded: [id number] 04:13PM Height6 ft Sgpcxo815 lb 8 oz BMI Ucuytrigmx17.89 kg/m2 BSA Calculated2.92 Tobacco Useb) No PHQ-2 [...] (Please see procedure below.) SINONASAL ENDOSCOPY (CPT 66381): To better evaluate the patient's symptoms, sinonasal endoscopy is indicated. After discussion of risks and benefits, and topical decongestion and anesthesia,an endoscope was used to perform (more content not included)... Normal Hubs1 Tobacco Screening.on 023 Adult depression screening assessment No [employer]tol[facility], [employer] Work Phone: Fall risk assessment a) No falls within the last year [employer] Work Phone: Tobacco use status CPHS b) No [facility]-Otolaryng LUMO [employer] Work Phone: MRI LSPINE WO CONon 07-23-20 [...] by: ANTONIO WEINSTEIN Date: 2022-07-23 12:04 Normal [facility] XR LSPINE 2_3 VIEWSon 2021 XR [...] by: ANTONIO WEINSTEIN Date: 2022-02-18 15:30 Normal [facility] Pathology Reporton 0 Pathology Report [id number]:12 7 Normal [facility] Coding Summary.on 08-31-2019 Coding Summary. CODING DATE: 019 FINAL [facility] STATUS: Home (Routine DC) PAYOR: [employer] DESCRIPTION 5155 Level 5 Airway Endoscopy ADMIT DX: REASON FOR VISIT DX: J32.4 Chronic pansinusitis FINAL DX: PRINCIPAL: J32.4 Chronic pansinusitis SECONDARY: J34.89 Other specified disorders of nose and nasal sinuses J45.909 Unspecified asthma, uncomplicated G47.30 Sleep apnea, unspecified Z99.89 Dependence on other enabling machines and devices PYMT PROC APC STAT DESCRIPTION DOCTOR NAME DATE 88800 515 J1 Nasal/sinus endoscopy, Jeferson HUBBARD, Yolette Ureña 08/25/2019 surgical with ethmoidectomy; total (anterior and posterior), including sphenoidotomy, with removal of tissue from the sphenoid sinus RT Right side (used to identify procedures performed on the right side of the body) 42778 5155 J1 Nasal/sinus endoscopyJeferson MD, Hilary H 08/25/2019 surgical, with maxillary antrostomy; with removal of tissue from maxillary sinus RT Right side (used to identify procedures performed on the right side of the body) 58194 5155 J1 Nasal/sinus endoscopyJeferson MD, Hilary H 08/25/2019 surgical, with frontal sinus exploration, including removal of tissue from frontal sinus, when performed RT Right side (used to identify procedures performed on the right side of the body) 25121 Anesthesia for Loyd López Jr., DO 08/25/2019 procedures on nose and accessory sinuses; not otherwise specified NOTE: The code number assigned matches the documented diagnosis and / or procedure in the patient's chart. However, the narrative phrase printed from the coding software may appear abbreviated, or result in slightly different terminology. Revised Coded By: Ngoc Campo Revised Date Saved: 08/31/2019 10:48 am Normal [facility] Main OR Intraoperative Recor don 08-29-2019 Main OR Intraoperative Record IntraOp Document Type FT Summary Primary Physician: Yolette Govea MD Finalized Date/Time: 08/29/19 09:29:47 Pt. Name: WALE MI/Sex: 2000 Male Med Rec #: [id number] Physician: Yolette Govea MD Financial #: [id number] Pt. Type: A Room/Bed: [facility]/ Admit/Disch: 08/25/19 09:16:00 - [...] to review and send charges Kristy Arcenio [facility] Case Attendance FT Entry 1 Entry 2 Entry 3 Case Attendee Rene Nava DO, Loyd Govea MD, Yolette Kimball RN, Jomar Morales Role Performed Anesthesiologist of Surgeon - Primary Bleacher Pulp - Primary Record Time In 08/25/19 10:37:00 08/25/19 10:37:00 08/25/19 10:37:00 Time Out 08/25/19 13:03:00 08/25/19 13:03:00 08/25/19 13:03:00 Procedure ANTROSTOMY TURBINECTOMY ANTROSTOMY TURBINECTOMY ANTROSTOMY TURBINECTOMY ETHMOIDECTOMY IM(Right) ETHMOIDECTOMY IM(Right) ETHMOIDECTOMY IM(Right) Comments out of room from [phone]. Last Modified By: Patrick INFANTE, Nelly Nguyen RN, Nelly Robison RN 08/25/19 13:05:43 08/25/19 13:05:43 08/25/19 13:05:43 Entry 4 Entry 5 Entry 6 Case Attendee Patrick INFANTE, Nelly Aguilar STUDENT LIFE VICE PRESIDENT, Enzo Tijerina STUDENT LIFE VICE PRESIDENT, Sheba Segovia Role Performed Bleacher Pulp - Primary Scrub - Primary Scrub - Relief Time In 08/25/19 10:37:00 08/25/19 10:37:00 08/25/19 11:40:00 Time Out 08/25/19 13:03:00 08/25/19 13:03:00 08/25/19 12:14:00 Procedure ANTROSTOMY TURBINECTOMY ANTROSTOMY TURBINECTOMY ANTROSTOMY TURBINECTOMY ETHMOIDECTOMY IM(Right) ETHMOIDECTOMY IM(Right) ETHMOIDECTOMY IM(Right) Comments out for lunch at out for lunch at [phone] Last Modified By: Patrick INFANTE, Nelly Nguyen [...] and tissue Entry 1 Skin Integrity Intact, Keno, Warm, and Skin Abnormality No Dry Outcomes [...] 08/25/19 11:42:00 By Rehana INFANTE, Breezy Staton STUDENT LIFE VICE PRESIDENT, Jeff Marcano CST, Jeff Giraldo CST, Enzo [...] L Patient Status Stable Skin. Condition Intact, Keno, Warm, and Dry Airway Maintenance Oxygen in Use? Yes Airway Device Simple Mask Flow Rate 10 L/min Outcomes Met? Yes Last Modified By: Jomar Kimball RN 08/25/19 11:48:09 Post-Care Text: The patient is free from signs and symptoms of injury related to transfer/transport General Comments: handoff report given to pacu nurse. 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 Yes Verified Last Modified By: Nelly Nguyen RN 08/25/19 10:03:51 Post-Care Text: The patient received appropriate medication(s) safely administered during the perioperative period For [place] please see scanned medication reconcilliation form for [...] AIR Quantity 1 Aid PLUS LOWER BODY [[id number]][F] Fluid/[place] Unit Mistral warming system Setting high/43 degrees Body Site Lower anterior torso Last Modified By: Nelly Nguyen RN 08/25/19 10:05:52 Case Comments Finalized By: Melisa Rg CST Document Signatures Signed By: Nelly Nguyen RN 08/25/19 13:06 ALEXIS Hines RN, Andrea 08/26/19 11:19 Melisa Rg CST 08/29/19 09:29 Normal [facility] Operative Reporton 11-22-201 9 Operative Report Date [...] Yolette Govea Jr., M.D. aek Dictated: 08/25/2019 #[id number] Typed: 08/26/2019 #[id number] cc: Wiliam Carrillo Jr., M.D. [facility] Comment on above: Result Comment: Elec tronically Signed By: Yolette Govea MD\.br\Date and Time Signed: 08/26/19 09:56 EST Inpatient Patient Summaryon 08-25-2019 Inpatient Patient Summary [facility] Clinical Discharge Instructions PERSON INFORMATION Name: WALE [place] PHYSICIANS Admitting Physician: Yolette Govea MD Attending Physician: Yolette Govea MD PCP: ENZO COLEMAN DO Discharge Diagnosis: Chronic pansinusitis Comment: PATIENT EDUCATION INFORMATION Instructions: Post Op Patient Instructions - FT (CUSTOM) Medication Leaflets: Follow up: With: Address: When: Yolette Govea [address] [place] [place] [address] Business (1) In 6 days 08/31/2019 Comments: Call for followup appointment MEDICATION LIST Comment: Keshav [facility] Main OR PACU I Recordon 08-06 Main OR PACU I Record PACU Phase I Document Type FT Summary Primary Physician: Yolette Govea MD Finalized Date/Time: 08/25/19 13:39:03 Pt. Name: WALE MI/Sex: 2000 Male Med Rec #: [id number] Physician: Yolette Govea MD Financial #: [id number] Pt. Type: A Room/Bed: [place] [address] Admit/Disch: 08/25/19 09:16:27 - Institution: Case Times [...] I Outcomes Met? Yes Last Modified By: Jesneia Phan RN 08/25/19 13:38:44 Post-Care Text: The [...] By: Jesenia Phan RN 08/25/19 13:39 Normal [facility] Main OR PACU II Recordon Main OR PACU II Record PACU Phase II Document Type FT Summary Primary Physician: Yolette Govea MD Finalized Date/Time: 08/25/19 15:29:24 Pt. Name: SHMUELWALE/Sex: 2000 Male Med Rec #: [id number] Physician: Yolette Govea MD Financial #: [id number] Pt. Type: A Room/Bed: [facility]/ Admit/Disch: 08/25/19 09:16:27 - [...] By: Heavenly Hager RN 08/25/19 15:29 Normal [facility] Main OR Preoperative Recordo n 08-25-2019 Main OR Preoperative Record PreOp Document Type FT Summary Primary Physician: Yolette Govea MD Finalized Date/Time: 08/25/19 11:07:39 Pt. Name: WALE MI/Sex: 2000 Male Med Rec #: [id number] Physician: Yolette Govea MD Financial #: [id number] Pt. Type: A Room/Bed: [facility] Admit/Disch: 08/25/19 09:16:27 - [...] By: Nelly Nguyen RN 08/25/19 11:07 Normal [facility] Operative Reporton 9 Operative Report Patient: Ministerio MI Age: 18 years Sex: Male : 2000 Associated Diagnoses: None Author: Yolette Govea MD Postoperative Information Procedure: RT IG microdebrider assisted MMA with r/o tissue, total ethmoidectomy, frontal sinusotomy, sphenoidotomy with r/o tissue Preoperative Diagnosis: Chronic pansinusitis (HJS05-EE J32.4, Working, Medical). Postoperative Diagnosis: Chronic pansinusitis (AMR67-LA J32.4, Discharge, Medical). Performed by: Yolette Govea MD. 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 Specimens Removed: nasal polyp, RT sinus contents, RT sinus sock, RT max sinus tissue, RT sphenoid tissue. Estimated Blood Loss: 100 ml. Medications Complications: None. Normal [facility] Comment on above: Result Comment: Elec tronically Signed By: Yolette Govea MD\.br\Date and Time Signed: 08/25/19 13:21 EST Patient Education - Texton 1 10-25-2018 Patient Education - Text Normal [facility] Coding Summary.on 08-22-2019 Coding Summary. CODING DATE: 019 FINAL [facility] STATUS: Home (Routine DC) PAYOR: [employer] DESCRIPTION 5521 Level 1 Imaging without [...] CphT Date Saved: 08/22/2019 11:03 am Normal [facility] Auto Diffon 08-19-2019 Basophils/100 WBC (Bld) 1.4 % Normal 0.0-2.0 [facility] Comment on above: Order Comment: Order Added by Discern Expert. Performed By: #### 2 484659, [id number], [id number] #### [facility] [address] [place] [address] Basophils/Leukocyte s Auto (Bld) [Pure # fraction] 0.2 E9/L Normal 0.0-0.2 [facility] Comment on above: Order Comment: Order Added by Discern Expert. Performed By: #### 2 245367, [id number], [id number] #### [facility] [address] [place] [address] Eosinophils/100 WBC (Bld) 1.1 % Normal 0.0-8.0 [facility] Comment on above: Order Comment: Order Added by Discern Expert. Performed By: #### 2 805298, [id number], [id number] #### [facility] [address] [place] [address] Eosinophils/Leukocy carlos Auto (Bld) [Pure # fraction] 0.1 E9/L Normal 0.0-0.5 [facility] Comment on above: Order Comment: Order Added by Discern Expert. Performed By: #### 2 219494, 2114779, [id number] #### [facility] [address] [place] [address] Lymphocytes/100 WBC (Bld) 21.2 % Normal 14.0-50.0 [facility] Comment on above: Order Comment: Order Added by Discern Expert. Performed By: #### 2 032962, [id number], [id number] #### [facility] [address] [place] [address] Lymphocytes/Leukocy carlos Auto (Bld) [Pure # fraction] 2.3 E9/L Normal 1.0-4.0 [facility] Comment on above: Order Comment: Order Added by Discern Expert. Performed By: #### 2 957967, 7991943, [id number] #### [facility] [address] [place] [address] Monocytes/100 WBC (Bld) 5.4 % Normal 4.0-14.0 [facility] Comment on above: Order Comment: Order Added by Discern Expert. Performed By: #### 2 187851, [id number], [id number] #### [facility] [address] [place] [address] Monocytes/Leukocyte s Auto (Bld) [Pure # fraction] 0.6 E9/L Normal 0.2-1.0 [facility] Comment on above: Order Comment: Order Added by Discern Expert. Performed By: #### 2 765736, 2443570, [id number] #### [facility] [address] [place] [address] Neutrophils/100 WBC (Bld) 70.9 % Normal 36.0-75.0 [facility] Comment on above: Order Comment: Order Added by Discern Expert. Performed By: #### 2 902070, 5166392, [id number] #### [facility] [address] [place] [address] Neutrophils/Leukocy carlos Auto (Bld) [Pure # fraction] 7.6 E9/L High 2.0-7.5 [facility] Comment on above: Order Comment: Order Added by Discern Expert. Performed By: #### 2 905765, [id number], [id number] #### [facility] [address] [place] [address] BUNon 08-19-2019 Urea nitrogen [Mass/Vol] 12 mg/dL Normal 5-21 [facility] Comment on above: Performed By: #### 2 116991, 0957498, [id number], 4141752, [id number] #### [facility] [address] [place] [address] CBC w/ Auto Diffon 9 Erythrocyte distribution width (RBC) [Ratio] 14.1 % Normal 10.9-14.2 [facility] Comment on above: Performed By: #### 2 231169, 0028043, [id number] #### [facility] [address] [place] [address] Hematocrit (Bld) [Volume fraction] 48.4 % Normal 37.7-49.0 [facility] Comment on above: Performed By: #### 2 100520, 0450489, [id number] #### [facility] [address] [place] [address] Hemoglobin (Bld) [Mass/Vol] 16.2 g/dL Normal 13.5-17.5 [facility] Comment on above: Performed By: #### 2 954282, 4249606, [id number] #### [facility] [address] [place] [address] MCH (RBC) [Entitic mass] 29.0 pg Normal 27.0-34.0 [facility] Comment on above: Performed By: #### 2 734861, 5711878, [id number] #### [facility] [address] [place] [address] MCHC (RBC) [Mass/Vol] 33.6 g/dL Normal 31.4-36.0 [facility] Comment on above: Performed By: #### 2 981047, 6578015, [id number] #### [facility] [address] [place] [address] 40147 MCV (RBC) [Entitic vol] 86.5 fL Normal 80.0-100.0 [facility] Comment on above: Performed By: #### 2 982823, 8130487, [id number] #### [facility] [address] [place] [address]509 Platelet mean volume (Bld) [Entitic vol] 8.7 fL Normal 6.4-10.8 [facility] Comment on above: Performed By: #### 2 230676, 3323656, [id number] #### [facility] [address] [place] [address] Platelets (Bld) [#/Vol] 351.0 E9/L Normal 150.0-500.0 [facility] Comment on above: Performed By: #### 2 764749, 7253155, [id number] #### [facility] [address] [place] [address] RBC (Bld) [#/Vol] 5.6 E12/L Normal 4.3-5.9 [facility] Comment on above: Performed By: #### 2 462291, 5320857, [id number] #### [facility] [address] [place] [address] WBC corrected for nucl RBC Auto (Bld) [#/Vol] 10.7 E9/L Normal 4.0-11.0 [facility] Comment on above: Performed By: #### 2 564371, 4965359, [id number] #### [facility] [address] [place] [address] Creatinineon 08-19-2019 Creatinine [Mass/Vol] 0.8 mg/dL Normal 0.5-1.3 [facility] Comment on above: Performed By: #### 2 654149, 6106332, 56909240, 9687757, 0227897 #### [facility] [address] [place] [address] Glucoseon 08-19-2019 Glucose [Mass/Vol] 97 mg/dL Normal 55-199 [facility] Comment on above: Performed By: #### 2 482958, 9410771, 08513186, 4417126, 2250997 #### [facility] [address] [place] [address] Lyteson 08-19-2019 Anion gap [Moles/Vol] 14 mmol/L Normal 6-16 [facility] Comment on above: Performed By: #### 2 391254, 5282166, 67358755, 2135549, 2091327 ####[facility] [address] [place] [address] Chloride [Moles/Vol] 104 mmol/L Normal 101-111 [facility] Comment on above: Performed By: #### 2 126206, 9406082, 75013697, 1315762, [id number] ####[facility] [address] [place] [address] CO2 [Moles/Vol] 25 mmol/L Normal 21-31 [facility] Comment on above: Performed By: #### 2 [id number], [id number], [id number], [id number], [id number] ####[facility] [address] [place] [address] Potassium [Moles/Vol] 3.5 mmol/L Normal 3.5-5.3 [facility] Comment on above: Performed By: #### 2 [id number], [id number], [id number], [id number] ####[facility] [address] [place] [address] Sodium [Moles/Vol] 139 mmol/L Normal 135-145 [facility] Comment on above: Performed By: #### 2 [id number], [id number], [id number], [id number], [id number] ####[facility] [address] [place] [address] PT & PTTon 08-19-2019 aPTT Coag (PPP) [Time] 35.7 second(s) Normal 25.1-36.5 [facility] Comment on above: Result Comment: Hepa rin therapeutic range (represented by Anti-Factor Xa activity of 0.2 - 0.4 U/mL) corresponds to PTT of 56.6 - 109.0 sec. Performed By: #### 2 [id number], [id number], [id number] #### [facility] [address] [place] [address] INR Coag (PPP) [Relative time] 1.0 {INR} [facility] Comment on above: Result Comment: INR results are specifically intended to assess patients stabilized on long-term Anticoagulation therapy suggested INR?s ?Less Intensive Anticoagulation? 2.0 ? 3.0 Conventional Range 3.0 ? 4.5 Performed By: #### 2 [id number], [id number], [id number] #### [facility] [address] [place] [address] PT Coag (PPP) [Time] 11.6 second(s) Normal 10.2-12.9 [facility] Comment on above: Performed By: #### 2 [id number], [id number], [id number] #### [facility] [address] [place] [address] XR Chest 2 Viewson 9 XR Chest [...] M.D. Transcribed by: JAZMYNE Technologist: ZHANNA Normal [facility] eGFRon 08-19-2019 GFR/1.73 sq M predicted among blacks MDRD (S/P/Bld) [Vol rate/Area] mL/min/{1.73_m2} Normal >=59 [facility] Comment on above: Order Comment: Order added by Discern Expert. Result Comment: eGFR is race adjusted. AA=. Performed By: #### 2 [id number], [id number], [id number], [id number], [id number] #### [facility] [address] [place] [address] GFR/1.73 sq M predicted among non-blacks MDRD (S/P/Bld) [Vol rate/Area] mL/min/{1.73_m2} Normal >=59 [facility] Comment on above: Order Comment: Order added by Discern Expert. Result Comment: [employer]er niall kidney disease could be indicated at eGFR's of less than 60 mL/min/1.73m2. Kidney failure is indicated at less than 15 mL/min/1.73m2. Performed By: #### 2 [id number], [id number], [id number], [id number], [id number] #### [facility] [address] [place] [address] Coding Summary.on 08-08-2019 Coding Summary. CODING DATE: 019 FINAL [facility] DSC STATUS: Home (Routine DC) PAYOR: [employer] DESCRIPTION 5522 Level 2 Imaging without [...] CphT Date Saved: 08/08/2019 12:24 pm Normal [facility] CT Maxillofacial w/o Contras ton 08-07-2019 CT [...] M.D. Transcribed by: JAZMYNE Technologist: YOSEPH Parr [facility] Vital Signs Date Time Vital Sign Value Performing Clinician Facility 05-23-2025 15: Body height 182.25 cm Enzo Ball DO Work Phone: [facility] 05-23-2025 [id number] Body mass index (BMI) [Ratio] 56.5 kg/m2 Enzo Ball DO Work Phone: [facility] 05-23-2025 [id number] Body weight 187.9 kg Enzo Ball DO Work Phone: [facility] 05-23-2025 15:21-0400 Diastolic blood pressure 80 mm[Hg] Enzo Ball DO Work Phone: [facility] 05-23-2025 15:21-0400 Heart rate 112 /min Enzo Ball DO Work Phone: [facility] 05-23-2025 15:21-0400 Respiratory rate 12 /min Enzo Ball DO Work Phone: [facility] 05-23-2025 15:21-0400 Systolic blood pressure 118 mm[Hg] Enzo Ball DO Work Phone: [facility] 01-16-2025 16:140400 Body height 182.25 cm [facility] 01-16-2025 16:140400 Body mass index (BMI) [Ratio] 56.4 kg/m2 [facility] 01-16-2025 16:14-0400 Body weight 187.44 kg [facility] 01-16-2025 16:14-0400 Diastolic blood pressure 108 mm[Hg] [facility] 01-16-2025 16:14-0400 Heart rate 102 /min [facility] 01-16-2025 16:14-0400 Respiratory rate 12 /min [facility] 01-16-2025 16:14-0400 SaO2% (BldA) [Mass fraction] 97 % [facility] 01-16-2025 16:14-0400 Systolic blood pressure 160 mm[Hg] [facility] 01-11-2025 15:29-0400 Body height 182.9 cm Dominick Barbosa MD Work Phone: [phone] [place] [address] 01-11-2025 15:29-0400 Body mass index (BMI) [Ratio] 55.95 kg/m2 Dominick Barbosa MD Work Phone: 6(002)[phone] [place] [address] 01-11-2025 15:29-0400 Body weight 187.11 kg Dominick Barbosa MD Work Phone: 4(020)[phone] [place] [address] 07-13-2024 13:18-0400 Body height 182.9 cm Dominick Barbosa MD Work Phone: 6(243)[phone] [place] [address] 07-13-2024 13:18-0400 Body mass index (BMI) [Ratio] 56.42 kg/m2 Dominick Barbosa MD Work Phone: 5(998)[phone] [place] [address] 07-13-2024 13:18-0400 Body weight 188.7 kg Dominick Barbosa MD Work Phone: 8(401)[phone] [place] [address] 06-03-2024 14:05-0400 Body height 182.25 cm [facility] 06-03-2024 14:05-0400 Body mass index (BMI) [Ratio] 57.3 kg/m2 [facility] 06-03-2024 14:05-0400 Body weight 190.5 kg [facility] 06-03-2024 14:05-0400 Diastolic blood pressure 91 mm[Hg] [facility] 06-03-2024 14:05-0400 Heart rate 83 /min [facility] 06-03-2024 14:05-0400 Respiratory rate 12 /min [facility] 06-03-2024 14:05-0400 Systolic blood pressure 146 mm[Hg] [facility] 03-09-2024 15:02-0400 Body height 182.9 cm Dominick Barbosa MD Work Phone: [facility] 03-09-2024 15:02-0400 Body mass index (BMI) [Ratio] 56.32 kg/m2 Dominick Barbosa MD Work Phone: [facility] 03-09-2024 15:02-0400 Body weight 188.38 kg Dominick Barbosa MD Work Phone: [facility] 10-06-2023 12:15-0500 Body height 182.25 cm Enzo Ball Other [facility] [employer] Other 10-06-2023 12:15-0500 Body mass index (BMI) [Ratio] 54.62 kg/m2 Enzo Ball Other [employer] [facility] [employer] Other 10-06-2023 12:15-0500 Body weight 181.44 kg Enzo Ball Other [facility] [employer] Other 09-02-2023 15:29-0500 Body height 182.9 cm Dominick Barbosa MD Work Phone: [facility] 09-02-2023 15:29-0500 Body mass index (BMI) [Ratio] 54.37 kg/m2 Dominick Barbosa MD Work Phone: [facility] 09-02-2023 15:29-0500 Body weight 181.85 kg Dominick Barbosa MD Work Phone: [facility] 05-27-2023 07:57-0400 Body height 182.88 cm Enzo Coleman Work Phone: [facility] Work Phone: 05-27-2023 07:57-0400 Body mass index (BMI) [Ratio] 55.81 kg/m2 Enzo Coleman Work Phone: MP[facility]dgxpbsmofldau[facility] Work Phone: 05-27-2023 07:57-0400 Body surface area Derived from formula 2.89 m2 Enzo Coleman Work Phone: BG-[facility]skovjcttfuatg[facility] 4[facility] Work Phone: 05-27-2023 07:57-0400 Body weight 186.66 kg Enzo Coleman Work Phone: QW-Cgzqvogjjpjxyw-Eb[facility] 4100 Work Phone: 05-27-2023 07:57-0400 0 1 Enzo Coleman Work Phone: [facility] 4100 Work Phone: Comment on above: [employer] 05-20-2023 12:20-0400 Body height 182.88 cm Enzo Coleman Work Phone: [facility] 4[address] Work Phone: 05-20-2023 12:20-0400 Body mass index (BMI) [Ratio] 56.31 kg/m2 Enzo Coleman Work Phone: [facility] [address] Work Phone: 05-20-2023 12:20-0400 Body surface area Derived from formula 2.91 m2 Enzo Coleman Work Phone: TK-Aedkrdpbngesgx-Gf[facility] 4100 Work Phone: 05-20-2023 12:20-0400 Body weight 188.33 kg Enzo Coleman Work Phone: ZX-Ntxcpeibpaodyb[facility] Work Phone: 05-15-2023 11:49-0400 Body temperature 96.8 [degF] Dominick Barbosa MD Work Phone: [facility] 05-15-2023 11:49-0400 Diastolic blood pressure 91 mm[Hg] Dominick Barbosa MD Work Phone: [facility] 05-15-2023 11:49-0400 Heart rate 82 /min Dominick Barbosa MD Work Phone: [facility] 05-15-2023 11:49-0400 Respiratory rate 16 /min Dominick Barbosa MD Work Phone: [facility] 05-15-2023 11:49-0400 Systolic blood pressure 139 mm[Hg] Dominick Barbosa MD Work Phone: [facility] 05-15-2023 11:18-0400 Body height 182.8 cm Dominick Barbosa MD Work Phone: [facility] 05-15-2023 11:18-0400 Body mass index (BMI) [Ratio] 55.39 kg/m2 Dominick Barbosa MD Work Phone: [facility] 05-15-2023 11:18-0400 Body weight 185.1 kg Dominick Barbosa MD Work Phone: [facility] 03-18-2023 13:56-0400 Body height 182.88 cm Enzo Coleman Work Phone: RO-Oagntfwfqrxngw-Yo [place] Work Phone: 03-18-2023 13:56-0400 Body mass index (BMI) [Ratio] 56.63 kg/m2 Enoz Coleman Work Phone: TP-Ranrnrjsvnqyjx-Px [place] Work Phone: 03-18-2023 13:56-0400 Body surface area Derived from formula 2.91 m2 Enzo E Ball Work Phone: FW-Avgijwoeyrruxj-Sq [place] Work Phone: 03-18-2023 13:56-0400 Body weight 189.41 kg Enzo E Ball Work Phone: XO-Zivhqstfncidoz-Yo [place] Work Phone: 03-18-2023 13:56-0400 0 1 Enzo E Ball Work Phone: LC-Tstumplurhhoqg-Sa [place] Work Phone: Comment on above: [employer] 11-12-2022 16:13-0500 Body height 182.88 cm Enzo E Ball Work Phone: ER-Ivjannoapovlhx-Gt [place] Work Phone: 11-12-2022 16:13-0500 Body mass index (BMI) [Ratio] 56.89 kg/m2 Enzo E Ball Work Phone: CI-Lrhrrtlzvespes-Bj [place] Work Phone: 11-12-2022 16:13-0500 Body surface area Derived from formula 2.92 m2 Enzo E Ball Work Phone: JJ-Fluojumutrxcgu-Fm [place] Work Phone: 11-12-2022 16:13-0500 Body weight 190.29 kg Enzo E Ball Work Phone: FD-Gkrwlubjwdnehw-Ts [place] Work Phone: 11-12-2022 16:13-0500 0 1 Enzo E Ball Work Phone: HX-Rkkclvqajhrcft-Qg [place] Work Phone: Comment on above: [employer] Encounters Encounter Date Encounter Type Care Provider Facility Start: 05-23-2025 End: 05-23-2025 ambulatory Enzo Ball DO Work Phone: [facility] Work Phone: Start: 05-23-2025 End: 05-23-2025 Patient encounter procedure Enzo Coleman -[facility] Work Phone: Start: 05-23-2025 End: 05-23-2025 [facility] Start: 02-13-2025 End: 02-13-2025 Office outpatient visit 15 minutes Dominick Barbosa MD Work Phone: [facility] Comment on above: 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); Chronic sphenoidal sinusitis Start: 02-13-2025 End: 02-13-2025 ambulatory DOMINICK Mandel [facility] Start: 02-13-2025 End: 02-13-2025 ambulatory Ruth Pfeiffer MD Facility:[facility] Start: 01-16-2025 End: 01-16-2025 ambulatory [facility] Work Phone: Start: 01-16-2025 End: 01-16-2025 Patient encounter procedure [facility] Physician [facility] Work Phone: Start: 01-16-2025 End: 01-16-2025 ambulatory Ruth Pfeiffer MD Facility:[facility] Start: 01-11-2025 End: 01-11-2025 Office outpatient visit 15 minutes Dominick Barbosa MD Work Phone: 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); Chronic sphenoidal sinusitis; Chronic maxillary sinusitis Start: 01-11-2025 End: 01-11-2025 ambulatory DOMINICK Mandel [facility] Start: 01-02-2025 End: 01-02-2025 ambulatory Ruth Pfeiffer MD Facility:[facility] Start: 09-12-2024 End: 09-12-2024 ambulatory Ruth Pfeiffer MD Facility:[facility] Start: 08-08-2024 End: 08-08-2024 ambulatory [facility] Work Phone: Start: 08-08-2024 End: 08-08-2024 Patient encounter procedure [facility] Physician [facility] Work Phone: Start: 07-13-2024 End: 07-13-2024 Office outpatient visit 15 minutes Dominick Barbosa MD Work Phone: [facility] Comment on above: Post-nasal drainage (Primary Dx); Chronic maxillary sinusitis; Nasal congestion Start: 07-13-2024 End: 07-13-2024 ambulatory [facility] Start: 07-04-2024 End: 07-04-2024 ambulatory Ruth Pfeiffer MD Facility:[facility] Start: 06-08-2024 Non-patient / Non-visit [facility] [employer] Work Phone: Start: 06-03-2024 Patient encounter status [facility] Start: 06-03-2024 End: 06-03-2024 ambulatory [facility] Work Phone: Start: 06-03-2024 End: 06-03-2024 Encounter for general adult medical examination without abnormal findings [facility] Start: 06-03-2024 End: 06-03-2024 Patient encounter procedure [facility] Physician [facility] Work Phone: Start: 03-09-2024 End: 03-09-2024 ambulatory [facility] Start: 03-09-2024 End: 03-09-2024 Office outpatient visit 15 minutes Dominick Barbosa MD Work Phone: [facility] Comment on above: Chronic ethmoidal si nusitis (Primary Dx); Chronic maxillary sinusitis Start: 10-06-2023 End: 10-06-2023 ambulatory Enzo [facility] Other [employer] Other Start: 10-06-2023 Office outpatient vi sit 15 minutes Enzo Coleman [facility] Start: 09-02-2023 End: 09-02-2023 Office outpatient visit 15 minutes Dominick Barbosa MD Work Phone: [facility] Comment on above: Chronic ethmoidal si nusitis (Primary Dx); Other chronic sinusitis; Chronic sphenoidal sinusitis Start: 06-07-2023 Chart Update Enzo morales Work Phone: [facility]xqsftiq[facility] Work Phone: Start: 05-27-[address] Dominick Cerda Facility:[id number] Start: 05-20-2023 Postop follow up vis it related to original px Enzo Coleman Work Phone: [facility]ax[facility]hednwvmm[facility] 6[facility] Work Phone: Start: 05-20-[address] Enzo Coleman Facility:[id number] Start: 05-15-2023 End: 05-15-[address] Dominick Barbosa Facility:[facility] Start: 05-15-2023 AUDIT Enzo morales Work Phone: [facility] 8134 Work Phone: Start: 05-15-2023 End: 05-15-2023 Subsequent hospital visit by physician Dominick Barbosa MD Work Phone: [facility] Comment on above: Chronic ethmoidal si nusitis; Benign neoplasm of middle ear, nasal cavity and accessory sinuses; Chronic sinusitis, unspecified Start: 05-12-[address] Dominick Cerda Facility:[facility] Start: 05-12-2023 Encounter for preprocedural laboratory examination Dr. Dominick Barbosa [facility] Start: 03-18-2023 Office outpatient vi sit 15 minutes Enzo Coleman Work Phone: WE-Lbeqaejwlsccne-MdyhP[facility] 5430 Work Phone: Start: 03-18-2023 Patient encounter procedure Enzo Coleman Work Phone: VN-Jzayyvrzqhmncb-Zuym [place] Work Phone: Start: 03-18-[address] Dominick Cerda Facility:[id number] Start: 01-07-2023 End: 01-07-2023 ambulatory Enzo Coleman Other [employer] Other Start: 01-07-2023 Telephone encounter Enzo Coleman [facility] Start: 01-06-2023 Office outpatient vi sit 25 minutes Enzo [place] Work Phone: HZ[facility]wxhlzzimd[facility] 4101 Work Phone: Start: 01-06-[address] Dominick Cerda Facility:[id number] Start: 01-05-2023 End: 01-05-2023 ambulatory Enzo Coleman Other [employer] Other Start: 01-05-2023 Office outpatient vi sit 15 minutes Enzo Coleman [facility] Start: 11-19-2022 End: 11-20-[address] DOCTOR PARISI Facility:H1 Start: 11-12-2022 Office outpatient vi sit 25 minutes Enzo Coleman Work Phone: [facility] 4100 Work Phone: Start: 11-12-2022 Patient encounter procedure Enzo Coleman Work Phone: HV-Vslbtkbtsrwkxw-Avgg [place] Work Phone: Start: 11-12-[address] Dominick Cerda Facility:[id number] Start: 07-29-2022 End: 08-23-[address] ENZO COLEMAN Facility:H1 Start: 07-22-2022 End: 07-23-[address] ENZO COLEMAN Facility:H1 Start: 06-24-2022 Well child visit Enzo Coleman Other [employer] Other Start: 03-20-2022 End: 04-25-2022 ambulatory [...] 2) Zoste r Vaccines (1 of 2) [facility] Start: 01-17-2026 End: 01-17-2026 Patient encounter procedure 01/17/2026 3:15 PM EDT Office Visit [facility] [address] [place] [address] Dominick Barbosa MD [address] [place] [address] [facility] Start: 06-05-2025 Influenza vaccination Influenz a Vaccine (Season Ended) [facility] Start: 01-11-2025 End: 01-11-2025 Patient encounter procedure 01/11/2025 3:00 PM EDT Office Visit [facility] [address] [place] [address] Dominick Barbosa MD [address] [place] [address] [facility] Start: 07-13-2024 End: 07-13-2024 Patient encounter procedure 07/13/2024 1:15 PM EDT Office Visit [facility] [address] [place] [address] Dominick Barbosa MD [address] [place] [address] [facility] Start: 06-05-2024 COVID-19 Vaccine () COVID-19 Vaccine () [facility] Start: 06-05-2024 Influenza vaccination [facility] Start: 03-09-2024 End: 03-09-2024 Patient encounter procedure 03/09/2024 2:45 PM EDT Office Visit [facility] [address] [place] [phone] Dominick Barbosa MD [address] [place] [address] [facility] Start: 09-02-2023 FUV, Provider: Dominick Barbosa, Status: Pen, Time: 2:45 PM FUV, Provider: Dominick Barbosa, Status: Pen, Time: 2:45 PM XO-Zdbccmoolnwqma-Ajfj [address] Work Phone: Start: 09-02-2023 End: 09-02-2023 Patient encounter procedure 09/02/2023 2:45 PM EST Office Visit [facility] [address] [place] [phone] Dominick Barbosa MD [address] [place] [address] [facility] Start: 06-05-2023 COVID-19 Vaccine ( season) COVID-19 Vaccine ( season) [facility] Start: 06-05-2023 Influenza vaccination Influenz a Vaccine (#1) [facility] Start: 05-27-2023 POV, Provider: Dominick Barbosa, Status: Pen, Time: 10:30 AM POV, Provider: Dominick Barbosa, Status: Pen, Time: 10:30 AM [place]-Fikjfatizxuldl-Jmue [place] Work Phone: Start: 05-20-2023 POV, Provider: Dominick Barbosa, Status: Pen, Time: 12:30 PM POV, Provider: Dominick Barbosa, Status: Pen, Time: 12:30 PM JK-Pjukeiggrqxxtp-Qofv [place] Work Phone: Start: 12-22-2022 DTaP/Tdap/Td Vaccine s (7 - Td or Tdap) DTaP/Tdap/Td Vaccines (7 - Td or Tdap) [facility] Start: 2022 DTaP/Tdap/Td Vaccine s (1 - Tdap) DTaP/Tdap/Td Vaccines (1 - Tdap) [facility] Start: 03-07-2021 COVID-19 Vaccine (2 - Booster for Isaias series) COVID-19 Vaccine (2 - Booster for Isaias series) [facility] Start: 2018 Hepatitis C screening Hepatitis C Pr hunter [facility] Start: 2015 HPV Vaccines (1 - Ma le 3-dose series) HPV Vaccines (1 - Male 3-dose series) [facility] Start: 2011 HPV Vaccines (1 - Ma le 2-dose series) HPV Vaccines (1 - Male 2-dose series) [facility] Start: 11-28-2004 Varicella vaccination Varicell a Vaccines (2 of 2 - 2-dose childhood series) [facility] Start: 2001 MMR Vaccines (1 of 1 - Standard series) MMR Vaccines (1 of 1 - Standard series) [facility] Start: 2001 Varicella vaccination Varicell a Vaccines (1 of 2 - 2-dose childhood series) [facility] Start: 03-23-2001 COVID-19 Vaccine (#1) COVID-19 Vacci ne (#1) [facility] Start: 2000 Hepatitis B Vaccines (1 of 3 - 3-dose series) Hepatitis B Vaccines (1 of 3 - 3-dose series) [facility] Start: 2000 HIV screening HIV Screening [facility] Start: 2000 Lipid panel Lipid Panel [facility] Start: 2000 Yearly Adult Physical Yearly Adult P hysical [facility] Comprehensive metabo lic 1999 panel - Serum or Plasma [facility] Comprehensive metabo lic 1999 panel - Serum or Plasma [facility] Patient Education Low back pain in adults [facility] Work Phone: [facility] Immunizations Immunization Date Immunization Notes Care Provider Fa cilinoe 09-23-2001 varicella virus vaccine Dominick Barbosa MD Work Phone: [facility] Work Phone: Payers Date Payer Category Payer [employer] [facility] [id number] 2022 Unknown 2022 Unknown [id number] 2019 Unknown [id number] 2000 Unknown [id number] 2.16.840.1.213127.3.579.2. 593 2000 Unknown [id number] 2.16.840.1.045767.3.579.2. 593 2000 Unknown [id number] 2.16.840.1.940114.3.579.2. 593 2000 Unknown [id number] 2.16.840.1.436906.3.579.2. 593 2000 Unknown [id number] 2.16.840.1.926080.3.579.2. 593 2000 Unknown [id number] 2.16.840.1.455816.3.579.2. 356 2000 Unknown [id number] 2.16.840.1.987568.3.579.2. 356 2000 Unknown [id number] 2.16.840.1.206602.3.579.2. 356 2000 Unknown [id number] 2.16.840.1.473984.3.579.2. 356 2000 Unknown [id number] 2.16.840.1.118553.3.579.2. 356 2000 Unknown [id number] 2.16.840.1.495216.3.579.2. 356 2000 Unknown [id number] 2.16.840.1.458249.3.579.2. 356 2000 Unknown [id number] 2.16.840.1.711382.3.579.2. 1244 2000 Unknown [id number] 2.16.840.1.118856.3.579.2. 1244 2000 Unknown [id number] 2.16.840.1.989893.3.579.2. 1244 2000 Unknown [id number] 2.16.840.1.471058.3.579.2. 1244 2000 Unknown [id number] 2.16.840.1.388817.3.579.2. 196 2000 Unknown [id number] 2.16.840.1.592090.3.579.2. 196 2000 Unknown [id number] 2.16.840.1.193787.3.579.2. 196 2000 Unknown [id number] 2.16.840.1.038015.3.579.2. 196 2000 Unknown [id number] 2.16.840.1.183430.3.579.2. 196 Self-pay Social History Date Type Detail Facility Start: 09-02-2023 End: 01-11-2025 Never a smoker Never a smoker RA-Iuzylhontyrovs-Vi stla ke Work Phone: Start: 09-02-2023 End: 01-11-2025 Sex Assigned At Weesh Other Tobacco smoking status MNIS Tobacco smoking consumption unknown [facility] Work Phone: Start: 2000 [facility]: Start: 09-02-2023 Tobacco smoking status MNIS Never smoked tobacco [facility] Work Phone: Start: 09-02-2023 Tobacco use and exposure Smokeless tobacco non-user [facility] Work Phone: Start: 08-23-2023 End: 01-11-2025 Exposure to SARS-CoV-2 (event) Not sure [facility] Start: 2000 Sex Assigned At Male [facility] Start: 01-16-2025 Sex Male (finding) [facility] Functional Status Date Assessment Result Facility 01-11-2025 Patient Health [facility] ionnaire 2 item (PHQ-2) [Reported] [facility] Work Phone: Clinical Notes 09-04-2020 to 05-05-2025 Note Date & Type Note Facility 05-05-2025 Evaluation note Diagnosis Onset Date Resolution Hypertension acute May 23, 2025 2:56pm IFG (impaired fasting glucose) acute May 23 2:56pm Low back pain acute May 2:56pm Obesity acute May 23 025 2:56pm Wellness examination acute Augu 2024 2:56pm [facility] Work Phone: 1(384) 718-307505-12-2025 History of Present illness Narrative* Dominick Barbosa MD - 02/13/2025 4:45 PM EDT Sinus [...] 180 g, Rfl: 3 documented in this [facility] Work Phone: 1(392) 287-964504-14-2025 Evaluation note* Diagnosis Onset Date Resolution Status Admit Date Hypertension acute January 16, 2025 3:19pm IFG (impaired fasting glucose) acute January 16, 2025 3:19pm Low back pain acute January 16, 2025 3:19pm Obesity acute January 16 3:19pm [facility] Work Phone: 1(401) 974-433304-09-2025 History of Present illness Narrative* Dominick Barbosa [...] procedure below.) SINONASAL ENDOSCOPY WITH BIOPSY (CPT 40765-N): Due to the patient's nasal cavity / [...] Signature: Dominick Barbosa MD documented in this [facility] Work Phone: 1(751) 503-817710-09-2024 History of Present illness Narrative* Dominick Barbosa [...] procedure below.) SINONASAL ENDOSCOPY WITH BIOPSY (CPT 60633-X): Due to the patient's nasal cavity / [...] Signature: Dominick Barbosa MD documented in this [facility] Work Phone: 1([phone]) 443-658806-05-2024 History of Present illness Narrative* Dominick Barbosa [...] (Please see procedure below.) SINONASAL ENDOSCOPY (CPT 80292): To better evaluate the patient's symptoms, sinonasal [...] of Agustina Barbosa MD. [facility]: 1([phone]) 951-181101-02-2024 Evaluation note* Encounter Date Diagnosis Assessment Notes [...] index [BMI] 50.0-59.9, adult (ICD-10 - Z68.43) [facility] Other 11-29-2023 History of Present illness [...] (Please see procedure below.) SINONASAL ENDOSCOPY (CPT 95010): To better evaluate the patient's symptoms, sinonasal [...] free to contact my office by calling [phone] with any questions. Signature: Scribe Attestation By signing my name below, I, Reina Irvin , Scribe attest that this documentation has been prepared under the direction and in the presence of Agustina Barbosa MD. documented in this [facility] Work Phone: 1(758) 172-395308-11-2023 NotePost Operative Note: PreOp Diagnosis: Right sinonasal inverted papilloma, chronic sinusitis Post-Procedure Diagnosis: Same Procedure: 1. Right nasal endoscopy with total ethmoidectomy including sphenoidotomy with tissue removal CPT 03873-O-37 2. Right nasal endoscopy with frontal sinusotomy CPT 06246-V 3. Right maxillary endoscopy with tissue removal 33844-H 4. Extracranial CT image guidance CPT 05493 Surgeon: Familia Resident/Fellow/Other Rn Teacher: None Anesthesia: GET Estimated Blood Loss (mL): [...] middle turbinate was resected (more content not included)...[facility] [place] 05-15-2023 Miscellaneous Notes* Op Note - Dominick Barbosa MD - 05/15/2023 4:37 PM EDT Post Operative Note: PreOp Diagnosis: Right sinonasal inverted papilloma, chronic sinusitis Post-Procedure Diagnosis: Same Procedure: 1. Right nasal endoscopy with total ethmoidectomy including sphenoidotomy with tissue removal CPT 64586-Z-95 2. Right nasal endoscopy with frontal sinusotomy CPT 77274-H 3. Right maxillary endoscopy with tissue removal 59052-W 4. Extracranial CT image guidance CPT 33222 Surgeon: Familia Resident/Fellow/Other Rn Teacher: None Anesthesia: GET Estimated Blood Loss (mL): [...] 17:00 by Dominick Barbosa) documented in this [facility] Work Phone: [phone]) 509-428508-11-2023 Note* Op Note - Dominick Barbosa MD - 05/15/2023 4:37 PM EDT Post Operative Note: PreOp Diagnosis: Right sinonasal inverted papilloma, chronic sinusitis Post-Procedure Diagnosis: Same Procedure: 1. Right nasal endoscopy with total ethmoidectomy including sphenoidotomy with tissue removal CPT 00942-V-64 2. Right nasal endoscopy with frontal sinusotomy CPT 46174-P 3. Right maxillary endoscopy with tissue removal 78709-B 4. Extracranial CT image guidance CPT 45930 Surgeon: Familia Resident/Fellow/Other Rn Teacher: None Anesthesia: GET Estimated Blood Loss (mL): [...] Last Updated: 15-May-2023 17:00 by Dominick Barbosa) [facility] Work Phone: [phone] History of Present illness Narrative* Wale presents for his first postoperative visit following right-sided sinus surgery in 05/15/23. * Following his surgery he has done well. He has been having some headaches that are controlled with Tylenol. His breathing has been significantly improved. He is rinsing several times per day. He denies significant nasal drainage. [facility] [address] Work Phone: [phone] NoteHistory of Present Illness: History Present Illness: [...] Completion Last Updated: 15-May-2023 11:51 by Dominick Barbosa)[facility] [place]08-11-2023 History and physical note* Dominick Barbosa MD [...] Last Updated: 15-May-2023 11:51 by Dominick Barbosa) [facility] Work Phone: [phone] History and physical note* Dominick Barbosa MD [...] 11:51 by Dominick Barbosa) [facility] Work Phone: [phone] Evaluation note* Encounter Date Diagnosis Assessment Notes Treatment Notes Treatment Clinical Notes Jan, 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 Obstructive sleep apnea on positive pressure DW-Ieqflefezzquhu-Fjwhucz [facility] [address] Work Phone: 1([phone]) [phone] History of Present illness Narrative* Reason for visit: * WALE [place] patient presents since last being seen 01/06/23. * Wale presents for routine follow-up. He is interested in going forward with his inverted papillomaresection and would like to schedule it as soon as there is availability. [facility]ciy[facility] Work Phone: [phone] 306-200204-04-2023 History of Present illness Narrative* Reason for visit: * WALE MI patient presents since last being seen 01/06/23. * Wale presents for routine follow-up. 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 [facility] [address] Work Phone: [phone] Evaluation note* Encounter Date Diagnosis Assessment Notes [...] for congestion, Tylenol for pain and fever. [facility] Other 12-01-2020 History of Present illness [...] and is using flonase only as needed. [facility]Stdbncmgryyqsg-Xvcghmla Work Phone: 1([phone]) 178-199912-01-2020 History of Present illness Narrative* Reason for [...] well outside of some nasal breathing issues. [facility]cesnqrtbgpmbx[facility]pgoton[facility] Work Phone: Evaluation note* Diagnosis Chronic ethmoidal sinusitis Benign neoplasm of middle ear, nasal cavity and accessory sinuses Benign neoplasm of nasal cavities, middle ear, and accessory sinuses Chronic sinusitis, unspecified documented in this encounter [facility] Work Phone: Evaluation note* Diagnosis Chronic ethmoidal sinusitis- Primary Other chronic sinusitis Chronic sphenoidal sinusitis documented in this encounter [facility] Work Phone: Evaluation note* Diagnosis Chronic ethmoidal sinusitis- Primary Chronic maxillary sinusitis documented in this encounter [facility] Work Phone: Evaluation note* Diagnosis Onset Date Resolution Status Bulging lumbar disc acute Elevated BP without diagnosis of hypertension acute Low back pain acute Obesity acute Wellness examination acute [facility] Work Phone: Evaluation note* Diagnosis Post-nasal drainage- Primary Other diseases of nasal cavity and sinuses Chronic maxillary sinusitis Nasal congestion Other diseases of nasal cavity and sinuses documented in this encounter [facility] Work Phone: Evaluation note* Diagnosis Onset Date Resolution Status Bulging lumbar disc acute Elevated BP without diagnosis of hypertension acute Low back pain acute Obesity acute Wellness examination acute IFG (impaired fasting glucose) acute Acute sinusitis noneactive [facility] Work Phone: Evaluation note* Diagnosis 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, middle ear, and accessory sinuses Chronic sphenoidal sinusitis Chronic maxillary sinusitis documented in this encounter [facility] Work Phone: Evaluation note* Diagnosis 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, middle ear, and accessory sinuses Chronic sphenoidal sinusitis documented in this encounter [facility] Work Phone: History general Narrative - [...] ethmoidectomy 08/25/2019 Hospitalization History see surgical history [facility] Other History of Present illness Narrative* [...] 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 [facility]fdj[facility]ua[facility]nhvo[facility] [address] Work Phone: Reason for referral (narrative)No reason for referral information available[facility] Work Phone: Summary Purpose Family History Unknown [...] Complaint and Reason for Visit Chief Complaint [facility] Reason for Visit Bulging lumbar disc Elevated BP without diagnosis of hypertension Low back pain Obesity Wellness examination Chief Complaint [facility] [phone] sinus infection Reason for Visit Bulging lumbar [...] and content) DATE CREATED AUTHOR 03/06/2020 [facility] DATE CREATED AUTHOR AUTHOR'S ORGANIZ ATION 11/24/2022 [facility] DATE CREATED AUTHOR AUTHOR'S ORGANIZ ATION 05/28/2023 [facility] DATE CREATED AUTHOR AUTHOR'S ORGANIZ ATION 06/05/2023 [facility] DATE CREATED AUTHOR AUTHOR'S ORGANIZ ATION 02/14/2025 [facility] DATE CREATED AUTHOR AUTHOR'S ORGANIZ ATION 03/01/2025 [facility] REASON FOR VISIT (unrecogniz ed section and content) Reason Comments Other Right endoscopic sin us surgery with image guidance, right endoscopic medial maxillectomy, septoplasty Reason Comments Follow-up Care Teams (unrecognized sec tion and content) Firebrick And Refractory Tile Repairer Relationship Specialty Start Date End Date Enzo Coleman DO PCP - General 09/21/19 Firebrick And Refractory Tile Repairer Relationship Specialty Start Date End Date Enzo Coleman DO PCP - General 09/21/19 Firebrick And Refractory Tile Repairer Relationship Specialty Start Date End Date Enzo Coleman DO PCP - General 09/21/19 Cristiana Triplett, LIQUID NATURAL GAS PLANT OPERATOR-CHILD CARE COUNSELOR [address] [place] [address] PCP Dmitry MILLERO PCP 09/04/23 Team Status: Active Member Role Status Dates Enzo Coleman DO Primary Care Provider Active Team Status: Inactive Member Role Status Dates Enzo Coleman DO Primary Care Provide r, Attending Provider Active Start: June 03, 2024 End: June 03, 2024 Firebrick And Refractory Tile Repairer Relationship Specialty Start Date End Date [place] [...] January 16, 2025 End: January 16, 2025 Firebrick And Refractory Tile Repairer Relationship Specialty Start Date End Date Enzo ColemanDO PCP General 09/21/19 Team Status: Inactive Member Role Status Dates Enzo Coleman DO Primary Care Provider Active Start: May 23, 2025 End: May 23, 2025 Enzo oCleman DO Attending Provider Active Sta rt: May [...] BE BASED ON THE PRIMARY CLINICAL RECORDS. [facility] [employer] [facility]. provides no warranty or guarantee of the accuracy or completeness of information in this document.
--- NOTE | 2025-06-15 12:58 | PM.CN ---
Consult Note: HPI Data of Consult Patient: known to practice within the last 3 years Requesting Physician: Shaneka Pena NP Primary Care Provider: Enzo Vasques DO Family Provider: Enzo Vasques DO Consult Narrative Reason for consult: low back and LLE pain Narrative: Wale heredia pleasant 24 year old male presents for evaluation of chronic low back and LLE pain, hx of low back and LLE > 12 months worsening over the last month without injury/fall. Pain today 9/10 sharp, increasing to 10/10 with all activity, no improvement with heat or ice. mild relief with lying down. Notes 60% pain in LLE and 40% in low back, with numbness tingling and sharp pain. denies muscle spasms/cramping. previously failed tylenol, motrin, heat, ice, flexeril, baclofen, gabapentin, and > 6 weeks of PT/HEP. prior lumbar MRI consistent with multilevel stenosis and bulging disc. no recent NS consultation. 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 - Personal history of other benign neoplasm (ICD-10) Sleep apnea ?G47.30 - Sleep apnea, unspecified (ICD-10) Asthma ?J45.909 - Unspecified asthma, uncomplicated (ICD-10) Pre-diabetes ?R73.03 - Prediabetes (ICD-10) Surgical History History of sinus surgery ?Z98.890 - Other specified postprocedural states (ICD-10) Meds Home Medications and Allergies Home Medications ?Medication ?Instructions ?Recorded ?Confirmed ?Type metformin 850 mg tablet 850 mg PO DAILY 07/04/24 02/13/25 History baclofen 10 mg tablet 10 mg PO BID 07/28/24 02/13/25 History meloxicam 7.5 mg tablet 7.5 mg PO BID 07/28/24 02/13/25 History cyclobenzaprine 10 mg tablet 10 mg PO TID PRN muscle spasm #90 12/22/24 02/13/25 Rx tabs gabapentin 300 mg capsule 300 mg PO .qhs #30 caps 12/22/24 02/13/25 Rx amlodipine 5 mg tablet mg 01/10/25 History Allergies Allergy/AdvReac Type Severity Reaction Status Date / Time No Known Drug Allergies Allergy Verified 02/13/25 08:23 Exam Constitutional Documenting provider has reviewed patient's vital signs: yes Common normals: no apparent distress, oriented x3, healthy appearing, alert and well nourished General appearance: cooperative HENMT Common normals: normocephalic, hearing grossly normal bilaterally and moist oral mucous membranes Head and scalp: normocephalic Eye Common normals: PERRL Pupil: PERRL Neck & C-Spine Common normals: full ROM General: normal visual inspection Chest Common normals: inspection of chest normal Respiratory Common normals: normal respiratory effort, no retractions and no use of accessory muscles Back & Pelvis Lumbar spine/lower back: ROM limited, pain with ROM, lumbar spinal tenderness and straight leg raise positive left; no paraspinal muscle tenderness and no paraspinal muscle spasm Other: pain following left L4,5,S1 Neuro Common normals: oriented x3 Sensorium/orientation: alert Psych Common normals: mental status grossly normal, thought process normal, cooperative, affect normal, speech normal and activity/motor behavior normal Speech: normal speech Thought process: normal thought process Results Additional Findings Additional findings: If on a controlled substance or opioids, I have checked an [place]AR[place] report on this patient and there are no aberrancies noted in the prescribing history.??If on a controlled substance or opioid a drug screen was completed and reviewed within the last year, and if there has not been a drug screen completed we ordered one today to monitor higher risk, state monitored pain medication use. As part of providing excellent, safe, comprehensive care, the following was completed at our patient's visit: 1. A medication reconciliation and review to ensure accurate knowledge of current/active medications, including asking our patients to inform us about any uyue-rxa-zaafzyn medications or herbal remedies/nutritional supplements/alternative remedies. 2. A review to specifically ensure our patients have had annual screening for screening for depression, screening for tobacco use, and screening for unhealthy alcohol use. For concerning screenings had a discussion with the patient, provided patient education, and recommended follow-up with primary care provider when appropriate. If patient noted with a risk of falling, they received education on strength, gait, and balance training to prevent future risk of falling. Portions of this note may have been carried over from the previous visit and updated as appropriate. Please note this office utilizes paper charting in addition to the electronic medical record. A list of current medications, vitals, and PMH is available there as the clinical staff outside of myself do not have access to [employer] charting during the clinic day operations. As part of providing quality comprehensive care the current medications, vitals, and PMH were reviewed in the paper chart. Assessment and Plan Assessment and Plan (1) Lumbar stenosis with neurogenic claudication: Assessment and Plan: The patient has had over 3 months of moderate to severe low back and LLE pain with functional impairment and inadequate response to conservative care including NSAIDS (unless there are contraindication such as concurrent blood thinners), multiple oral or topical pain medications, and home exercise program/physical therapy.? Patient has completed >6 weeks of guided home exercise program and/or formal physical therapy program without relief of their symptoms.? The Oswestry Disability Index was completed, and the patient scored a 44%.? 09/12/24 left L4-5 L5-S1 TFESI >50% improvement in radicular/NC pain at least 3 months (2) Lumbar radiculopathy: (3) Lumbar spondylosis: (4) Lumbar disc displacement without myelopathy: (5) Myalgia: Plan update lumbar xray with flexion to assess stability/listhesis repeat left L4-5 L5-S1 TFESI under fluoroscopy for lumbar stenosis with NC, lumbar disc bulge, lumbar radiculopathy consider updating MRI and refer to NS if pt does not respond to JUVENTINO start pregabalin 75mg BID, risks vs benefits reviewed. previously failed gabapentin 300mg due to drowsiness and ineffectiveness defer NSAIDs due to HTN, defer alternative muscle relaxers at this time. failed cyclobenzaprine and baclofen noted drowsiness with both f/u 2 weeks after JUVENTINO
== END 2025-06-15 12:32 | disposition home or self-care (01) ==
PROVIDERS: Family Provider Internal Medicine; PCP Internal Medicine; Visit Provider Nurse Practitioner
DX: M48.062 Spinal stenosis, lumbar region with neurogenic claudication (principal); M47.26 Other spondylosis with radiculopathy, lumbar region; M79.10 Myalgia, unspecified site; M51.26 Other intervertebral disc displacement, lumbar region
CPT/HCPCS: G0463

== ENCOUNTER 2025-06-15 13:11 | Outpatient (OUT) | payer BC, SELFPAY ==
--- NOTE | 2025-06-15 13:15 | XR_ITS ---
[facility] [place] [address] Patient Name: HAKAN [place] MRN: [id number] date: 2000 Sex: M Assigned Patient Location: PM Current Patient Location: PM Accession/Order Number: [id number] Exam Date: 06/15/2025 13:17 Report Date: 06/15/2025 14:08 At the request of: LUBA BAKER NP Procedure: XR lumbar spine 6V w bending LUMBAR SPINE - 6 views CLINICAL HISTORY: Spondylosis without myelopathy or radiculopathy, lumbar COMPARISON: None FINDINGS: Vertebral body heights appear maintained. Mild disc space narrowing L3-S1. SI joints appear unremarkable. No pathological motion on flexion or extension views. XR/XR lumbar spine 6V w bending IMPRESSION: MILD DISC SPACE NARROWING L3-S1. Impression dictated by: Fracisco Rashid Jr., D.O. 06/15/2025 2:08 PM Dictation Location: [place] [address] Electronically authenticated by: [id number] Y Date: 06/15/2025 14:08
--- OUTSIDE RECORDS SUMMARY | 2025-06-15 13:15 | XMS_ITS | Clinical Summary ---
Author Organization [facility] Address [address] [place] [address] Phone Care Team Providers Care 1St Grade Teacher Name Role Phone Enzo Vasques DO Primary Care Provider Allergies No known active allergies Medications mometasone [...] Description 07/12/2025 3:00 PM EDT Office Visit [facility] [address] [place] [address] Dominick Barbosa MD [address] [place] [address] 01/17/2026 3:15 PM EDT Office Visit [facility] [address] [place] [address] Dominick Barbosa MD [address] [place] [address] Health Maintenance Due Date Last Done Comments HIV Screening 2000 Lipid Panel 2000 Yearly Adult Physical 2000 HPV Vaccines (1 - Male 3-dose series) 2015 Hepatitis C Screening 2018 DTaP/Tdap/Td Vaccines (7 - Td or Tdap) 12/22/2022 12/22/2012, 10/31/2004, 08/01/2002, Additional history exists COVID-19 Vaccine (2 - season) 2025 01/10/2021 Influenza Vaccine (#1) 2025 Zoster Vaccines [...] patient's age to complete this topic Insurance [facility] Care Teams 1St Grade Teacher Relationship Specialty Start Date End Date Enzo Vasques DO PCP - General 09/21/19
--- OUTSIDE RECORDS SUMMARY | 2025-06-15 13:15 | XMS_ITS | Clinical Summary ---
Author Organization [facility] Healthcare Address [address] [place] [address] Care Team Providers Care Physician Advisor Name Role Phone Unavailable Primary Care Provider [...] Plan of Treatment Not on file Insurance [facility]
--- OUTSIDE RECORDS SUMMARY | 2025-06-15 13:15 | XMS_ITS | Encounter Summary ---
Author Organization [facility] Address [address] [place] [address] Phone Care Team Providers Care Insulation Cupola Operator Name Role Phone Enzo Vasques DO Primary Care Provider Encounter Details Date Type Department Care Team (Late st Contact Info) Description 01/07/2024 Patient Risk Score [facility] Care Management [address] [place] [address] Social History Tobacco Use Types [...] Description 07/12/2025 3:00 PM EDT Office Visit [facility] [address] [place] [address] Dominick Barbosa MD [address] [place] [address] 01/17/2026 3:15 PM EDT Office Visit [facility] [address] [place] [address] Dominick Barbosa MD [address] [place] [id number] documented as of this encounter Visit Diagnoses Not on filedocumented in this encounter Additional Health Concerns Assessment Noted Time A fall risk assessment has been complete d for the patient 09/02/2023 3:31 PM EST documented as of this encounter Care Teams Insulation Cupola Operator Relationship Specialty Start Date End Date Enzo Vasques DO PCP - General 09/21/19 documented as of this encounter
--- OUTSIDE RECORDS SUMMARY | 2025-06-15 13:15 | XMS_ITS | Encounter Summary ---
Author Organization [facility] Address [address] [place] [address] Phone Care Team Providers Care Finger Lift Operator Name Role Phone Enzo Vasques DO Primary Care Provider [phone] Cristiana Triplett INDUSTRIAL ROOF PLUMBER-SURVEILLANCE ANALYST Unavailable Encounter Details Date Type Department Care Team (Late st Contact Info) Description 11/07/2023 Patient Risk Score [facility] Care Management [address] [place] [address] Social History Tobacco Use Types [...] Description 07/12/2025 3:00 PM EDT Office Visit [facility][note 3] [address] [place] [address] Dominick Barbosa MD [address] [facility] [address] [place], [place] [id number] 01/17/2026 3:15 PM EDT Office Visit [facility][note 3] [address] [place] [address] Dominick Barbosa MD [address] [facility] [address] [place] [address] documented as of this encounter Visit Diagnoses Not on filedocumented in this encounter Additional Health Concerns Assessment Noted Time A fall risk assessment has been complete d for the patient 09/02/2023 3:31 PM EST documented as of this encounter Care Teams Finger Lift Operator Relationship Specialty Start Date End Date Enzo Vasques DO PCP - General 09/21/19 Cristiana Triplett APRN-SURVEILLANCE ANALYST [address] [place] [address] PCP - Cyndie ENCISO PCP 09/04/23 01/03/24 documented as of this encounter
--- OUTSIDE RECORDS SUMMARY | 2025-06-15 13:15 | XMS_ITS | Encounter Summary ---
Author Organization [facility] Address [address] [place] [address] Phone Care Team Providers Care Meat Press Operator Name Role Phone Enzo Vasques DO Primary Care Provider [phone] Cristiana Triplett FINISHING SUPERVISOR-CLOUD SOFTWARE ENGINEER Unavailable [phone] Encounter Details Date Type Department Care Team (Late st Contact Info) Description 05/15/2023 Scanned Document [facility] [address] [place] [address] Conversion, Onbase Social History Tobacco Use Types [...] Description 07/12/2025 3:00 PM EDT Office Visit [facility] [address] [place] [address] Dominick Barbosa MD [address] [place] [id number] 01/17/2026 3:15 PM EDT Office Visit [facility] [address] [place] [address] Dominick Barbosa MD [address] [place] [id number] documented as of this encounter Procedures Procedure Name Priority Date/Time Associated Diagnosis Comments SURGICAL PATHOLOGY EXAM 05/15/2023 documented in this encounter Results * SURGICAL PATHOLOGY EXAM (05/15/2023) Narrative 05/15/2023 Ordered by an unspecified provider. us Onbase Conversion LAB PATHOLOGY ORDERABLES Final Result documented in this encounter Visit Diagnoses Not on filedocumented in this encounter Care Teams Meat Press Operator Relationship Specialty Start Date End Date Enzo Vasques DO PCP - General 09/21/19 Cristiana Triplett APRN-CLOUD SOFTWARE ENGINEER [address] [place] [address] PCP - Cyndie ENCISO PCP 09/04/23 01/03/24 documented as of this encounter
--- OUTSIDE RECORDS SUMMARY | 2025-06-15 13:15 | XMS_ITS | Encounter Summary ---
Author Organization [facility] Address [address] [place] [address] Phone Care Team Providers Care Knurling Machine Operator Name Role Phone Enzo Vasques DO Primary Care Provider [phone] Cristiana Triplett LIVESTOCK NUTRITIONIST-LIPCOAT SPRAYER Unavailable Encounter Details Date Type Department Care Team (Late st Contact Info) Description 12/07/2023 Patient Risk Score [facility] Care Management [address] [place] [address] Social History Tobacco Use Types [...] Health [facility] [address] [place] [address] Dominick Barbosa MD [address] [facility] [address] [place], [place] [id number] 01/17/2026 3:15 PM EDT Office Visit [facility] [address] [place] [address] Dominick Barbosa MD [address] [facility] [address] [place] [address] documented as of this encounter Visit Diagnoses Not on filedocumented in this encounter Additional Health Concerns Assessment Noted Time A fall risk assessment has been complete d for the patient 09/02/2023 3:31 PM EST documented as of this encounter Care Teams Knurling Machine Operator Relationship Specialty Start Date End Date Enzo Vasques DO PCP - General 09/21/19 Cristiana Triplett APRN-LIPCOAT SPRAYER [address] [place] [address] PCP - Cyndie ENCISO PCP 09/04/23 01/03/24 documented as of this encounter
--- OUTSIDE RECORDS SUMMARY | 2025-06-15 13:20 | XMS_ITS | CCD ---
Author Organization [facility] CliniSyut Care Team Providers Care Brush Head Maker Name Role Phone Enzo Coleman Unavailable Unavailable [...] Enzo Coleman DO Primary Care Provider Uziel AMBULATORY NURSE-RECORDER HELPER SEISMOGRAPH, Cristiana Jose Unavailable Enzo Coleman DO Primary [...] Care Provider Enzo Coleman DO Attending Provider [phone] Allergies Allergy Classification Reported Allergen(s) Allergy Type Date of Onset Reaction(s) Facility (8 sources) bee pollen Allergy to substance (finding) -Otolaryngolog [facility] Work Phone: (1 source) patient allergy list reviewed by nurse or physicia Propensity to adverse reactions 6 Comment:Done [facility] Other Medications Current Medications Medication Drug Class(es) [...] [place] on 01-18-2025 Laboratory comment Pasquale (Report) m9taiTKvIQVym6byVZOcvNEqL zEwMzNcZnRuYmpcdWMxIHtccn XvLXzil0MpF5EpZuXnYMqfidM fZJLoYoamrirsVPRvSJC0ofMg AAMiGEmjTOIeICdmIp4xrSPba AsfCkJuMCJqi1ydnxBZMVhlZI TLLRq3a8gjOVIkQhD9hRYoCHr iG9vjydKfoDLpA1Bhk0JzYSj9 yK26FGBtnB4flSAmZEccvnMzT vD7YGwiSGNsAqC4IQPhwXOgVT InD5ptHQLhRMsqVETzLPlpyAL bFGL9pZqbj7Y0qIGtfFIcjRju VcVrSoUpBkQCz1JpAHz2qRqjF 3XlHYZtQzU0zHQfFCCjIZcyDF AmYOOcgdE9mX33YFwqumM0wFC hh5Qwm54vp088qP3tsRInAYU0 ZTWkBJNqvBEiATTnTQO0OWUvl CBvQ7mhUvPwnUOwW9QiXlBiqE VlK6GiDsXhnJRmW7ApSjEqmBR qSJQfqGK7UEreq637IST7DtIv BH7gN1Thc5O8bI5niRXsJFPwb YXaOyFyPJDkar7cdTPcMRrrd2 JdZRA3gkP0xMIddVIiECWgJG4 9Nsiql7OgOkfiRRL4EWLqshHj u0Bda9coYlQcdfEfC0tlL9XgN YPqWQGgXDOaRsXwozRbq5Apb1 QbfXVnsUa1e1xbAUSkGGXwoLw zt1pbIMR6HCJuR0I9cJGmm3tx IJzqDTTadAR2sfF1XNioDSYvs kP2ojH1RXohONOczYY7paR4HI ssEKYsQpY5fkN0OYnpUPOzYDF 7UxVaXNCix7CsqmvhHbQem4Zv yZJcJHewW07pl873QASugfEiO 1xwbGFpblxwbGFpblxmMFxmcz W3REPlZYWcOVanDBUoJRArElK cbGFuZzEwMzNcaGljaFxmMVxk HlIrERWbSNyuU0vtRwJgCeKlX ZRRyGQ0pWJds9ellvY4tYZzXQ 5hDJKxvHUmnbMiw0P2SIG1gXQ leL5lbBDmKODfhKEkpxWxtf56 iPByvQM0ACYkTUUgeJRutO7hF HNaPDBEzK2syNNGbkEaxuToLW AdgRceqi6JaBLxbx4dkLZzT0G ydGlmaWVzIHRoYXQgdGhleSBo QFMgFSKmsdkpi7FkOVCpfJBxK 1QpTZ0lLUVjht65 [facility] Work Phone: Pathology report Cancer Narrative Surgical Pathology Case: [id number] Authorizing Provider: Dominick Barbosa MD Collected: 01/11/20250 Ordering Location: [facility] Received: 01/11/2025 162 Pathologist: Claudio Ireland MD Specimen: SINUS MASS RIGHT [facility] Work Phone: Pathology report final diagnosis Narrative f9sueSRpQGMgwZJlUEXhOBudo iLgBLDjvWFwE8XhorydKOivTE 2tDR4ahUyivPIgcFKtGYAtXlJ vp5ztc908oXYie8qwFTURoiox iYa3bMbbO27xs3L5DzqhR5zsU UQzNUmaDJPvXFzcrGNaTWz4BG BhcGVydzEyMjQwXHBhcGVyaDE 7JUHyCV7iotrtHKkxFMuuRRUa jeY2MQQblWNxV3JrZTKxTT5iu zekCRM0LXxxEYOdRCR1BmErPH Mbs9Srcmf8TuDlxIw7r0svQPF pVGIkpMfur3ojWQQ6DLPhsSXi D1mcuX7oFYSuFU9oknfqz9ikC LsuIXtySCVmhBZ1rgF3GFDusF SrA5FyqH5wOQIsORTefuMqnDp hnG3rMkCkDdwjCsYgBsfdzLEs u8byhBPgbCFphxxwwBIqBWWiI YHvpUSsJ2ybp01gt3IjNNAlxW prqY0uTExsqT10VPB7RQGhoJz cYIwwyE81y1r3hN1bGTChVLfs OfcubL3nbK3ulHMndO3oucMvK NekyN5ptGRuALRegjafplYjo7 yrZD7kJTfzO4ydP3RiUZSpBCx gvNyft6hiKI6sQKzbvrYscOJd HAMcrcLsdy5qLOQkRLXbtFzcr UZaMphnNQNmEG4qZLIsOCAPz7 M3uJ4bHN8bBGTbkcYsm5y3fPA xhsVxoFysbGKsZ6NqcXVhSZAf l4fnL7znUUNwmpNogqfqQzgwL KNkcUNaOUkgl4vgIKF3 [facility] Work Phone: Pathology report gross observation Narrative g1nkmHSmVSKpnWMRAZZ8XMUhF C2ukHukhHb3hUrxOUXpqfT1iT JnMPaje0pkVJE2o5vveoTMJdc oKHPvWS6fVJulARNyOI9kPyJo XGRlZmYxXHBhcGVydzEyMjQwX PZjkLMrpBJ0KCKbSP9zjrsnIZ iqAEqwLYEdyeL0TJFtbKKjW2H aLONoCG1xjtvrCHD3ROUPAgwa Ty1wrDWixBWXPjyvNcUyGcMiT WYpXKWkHXNbl7leseCVSAcqJJ DDITa7WCd8KPQwXPMxsAKfh0V 4WKymg1zzg4MhLALzRGr5wL8O BmogAXA3PQAKLktlCzfkqLssr 2VjdCBcXHNnIFxcaWQgNTEwMD IyWVilAxHUTbFmLxKcAoi9VPV 8RNZxXRe1VWvoUiKFPGOcRLS2 TPAdUHt0PXcvAVzfyHSaVPEyQ TIjWTOkCCxrriE8y8vdUWObiB YoEGG1KTcbk2hmTQqdQJS0HNZ kMjSaXSXgVB8WMqLgQLA5IFL7 LWj0TpC8YYo2KUZQYdOoXgXkG Ct4HfH2PkSuAKg7RSb2TBgSOn GsJNmdQRk9VCN2HUC2JwW8BKb bcgvlXUg4AHXqKQyholKbQEop IlkiCGtoE88jrTGxOTXDJbexc GFpblxlcGljTmVzdERvYzEgDQ ewlDTukRMqAU8GKWw5yyPkYCV wJQRlNeOaIqLcQBt5XXZjbA3p Mp1ksGAaoY7mTXzsOmHyOLXvh 3j6fBK8jEZpmZV5dLJmuKgzPG 9xnDHvVY6wNKhmn6PnuHDaHP8 2gCSivkJelzNcAcKvzaGcGG2c p0DzuuiwaPLuYKIyvwSbDQVgz Pejw2fkPPQzH32pxuRqk2ApcD GoIJrtgDYuSKYcTkQxkJvtj0G cQF0nAJI2wauyJrFsOsPmjMGz RkutzJNbTfgkY82wDIMLjCFlr MTzz0AoNOMnsBRbD8xuCR4rLK Exl7DmtDflusQtryWisblsKYF szWWyXMVgONQ8yTPor4ZvE3bs KS1gvEXhJoooMBU5WHUrRHBSy FMtt9QhC3dyRI6puPOgOQ56jF RzmFwbd5OabSp9aOPhXRtoTY6 yUPMtZBWoDEI3NH4haWRnML5Y QSLxWxQfOMYsZ0mqGWKrQL4GP 38GZDroCOLoE54bl0IEr4Grq1 ftuDwlt2ForPIuUW09ZFTudNO bRAA0YO5ssKlkRDLnKNgfdRSn ZCANClxwbGFpbiANCn0= [facility] Work Phone: Pathology report relevant history Narrative s5iotWZzJYJvi8xfBOXcsALwZ mYvVjCfXgSqCqi2YDPzbzP3Wk r1TRNsAFolrI4jCDZoSPqpO9f alyCcaLHhDQTcJPc6pG9ebRam oP8wEnBbStZgGNEOfNhthg7nV VJuYPYiqbBldLMop5okACMlvK == [facility] Work Phone: [facility] Work Phone: Surgical pathology studyon 0 01-11-2025 Surgical pathology study Pathology report.total SEE COMMENT Surgical Pathology Case: [id number] Authorizing Provider: Dominick Barbosa MD Collected: 01/11/20251619 Ordering Location: [facility] Received: 01/11/2025 1620 Pathologist: Claudio Ireland MD [...] is entirely submitted in one cassette. [facility] Surgical pathology studyOrde red By: Shakir Ford on 07-19-2024 Laboratory comment Pasquale (Report) c6ijuNOyNKQwq2lyIWRooNGlO zEwMzNcZnRuYmpcdWMxIHtccn RlQOalz5RyQ8KoXiKnLQozssY nAVCqOhhulfvoIRWlSPM4ekVs BXGmCCwtOBLuUYboMv1suIUjj DziFiDdQXOwr4xcrfWDSAmaFP EZRKh1g5qsIIGwSsV4hUEmAPi rE1rpnmDpuSReQ6Crb4NiJHw2 nE16HGPybL7rfOHlQEnhadGlW uU3JInyGHWkVrY3NRTxeGKhWW ZuB8ceOSKyLTivPWHoLPghyKH vPEE3wDwfk9Z7dQGfuGBncLwf UmMjZeYzTlVGa8CkNCx1fPzlC 8CvLHWuWgP6hYCaEIBuXMuzPU BuCQFnkwQ1iG72LXtcytK4zUU sc7Ptz78sy961mL5lhSFiFKC6 NNQuLVZizGSvXRRfMLO0GYAer KScD8jcAcAxqFEbN8ZkXjGzaO JhH0WcAnSyjLStH4AcSdSqtSL hJXHhfKE5ZQtuv602XRX9JuOs PH6iO2Zbf4I3gZ3cuKKcOHIbm NOqZnJiQMEzrh6yrJJaUKolz0 ImEZI5klZ2rBEioCVeYDIyBF4 9Nmodd9LhQrboJZH6ICEzsoNy t8Rrr7bfZzCsuwNxQ0ipG0GkA PJyVCJzHTPuFyWsgyGho4Mwm0 EciPUptEn0o5vjEGErKBOvvQg ge9sxDDC2QWKpN8J3cVOkr3az JQpaMDFthAM6cwU8IJjmJJTse hN9xwQ1BDliQIJdxWC0pmE4LV gfVSTyThS6azT8SMczYECxKTX 6XbSwUPUzx7HigxuvLqHzh7Uf bIVrMSonN89nk463IBUabbTyN 1xwbGFpblxwbGFpblxmMFxmcz Q3YZNmRSPyPKvzYGVdOKIaPiB cbGFuZzEwMzNcaGljaFxmMVxk KxBhCUHpHWuiA9mrEzDnMxYlE BGNbJQ5gOWqf6qhghY8aRZyKM 4bXGGlzYBdtsFgi9X1ZUW5cUX dcO9xlLOrDFHjqYMdlaJftw83 sDZebGD2ODSdVHLdpQNqrP7gO ENwHMGEhV1omBQInfOsjsObCI GdzOcyiw3EhKAwdr7oaWZoP6Y ydGlmaWVzIHRoYXQgdGhleSBo PFVpPHYxjijwd0QpTNQueNBpL 3NcYZ1bKBBxwo21 [facility] Work Phone: Pathology report Cancer Narrative Surgical Pathology Case: [id number] Authorizing Provider: Dominick Barbosa MD Collected: 07/13/2024 1405 Ordering Location: [facility] Received: 07/13/2024 1405 Pathologist: Shakir Ford DDS Specimen: NASAL MASS RIGHT BIOPSY [facility] Work Phone: Pathology report final diagnosis Narrative r1cobVEeAHSolDSsALgtYdrhg pIoOZBweLRuL9AoufbcPYtsIX 3oDN8htHqmeMIvzNQwMKCzFgP wv4xxn692pZAfb2kcXAQAtrwx lYa1tXdeM18cl5I5YsulP0gyF GIzVGefQXDyPUbcaIExGQm8FN BhcGVydzEyMjQwXHBhcGVyaDE 3MYCdBO6mihduUNtdXNihGHPr exZ9YQGjyRWrZ5BvFEAoAA3kv nnyOWX4WPxhMRGvAUK0YaXdAP Pne6Nnxmu1JgMrrEc4t3leGRX sCCGyrVkde8xtKFF0YXNlqZUa R4xjbD9tLTVuDQ1bjlckk5knI VpqYTqwPIFtnKW6roJ8ZQIodY QfH2GxoO6oSPDlAJTztbCevYx toW5pLiTpClnpZmGhIcBjHTpn Z4L2mGX8IAXzqScvgSZqLEPyY MCyjC3aa4g9ZPGgfwtkyzJqe6 geMIIirz2tCTUhbOCjfKVkz7J tBR1aPZWbiu2zyIHcyC7siDKy kHU3sA3rCEoviJylDPOclFB4j 5YvQRF8tw8cEHbhJ04ui5xkgM DjpZA6dQVmRKMzfi7hXZBhaQK pqeCyZD8fDZVzvcchyL0gqLQz XHBhcn0= [facility] Work Phone: Pathology report gross observation Narrative q4cupZPtHCVbaGYTZZU2OSGkE P3abDubzYp0gNwiOPEevlF9xX EbYGthz6aeWKA0q3zeofPZCrh rSWIbCA5fYEhwPFGlWI5yXxDl XGRlZmYxXHBhcGVydzEyMjQwX ZEihTUsjDI1PHCrLN1bpnzwGO kuFZhuFSXqnkW7LWLmpICqT1C pRLZwWR7sckbkSFL3DYFBMeon Ga1xgQCddCVIZbpaHbFsZfIsQ TAvJCIfSDKsz2drwqBOIIrzBC BADYq2HJd5UMFoWQSyhAVys5V 5XWrts5lzp3EkLVTrZRi1uM2O TfcwRDE5IEDGNoqhBhhliFqwt 2VjdCBcXHNnIFxcaWQgNTEwMD ZrHPgaBqNDBnZtPkBnBFO9VEx 4BpEfUMo9SUxdWlGHFNY3RTu3 IxtoQYt4FDomQXcetJDaKWKdN EBgYTSeLQvfrzT0k5oiXUTanG UpZVR0USwwe4jxTQayIRB2CEA gAtBeQZJoES5KUlQaHQW8SjA5 LmvhHfG3JDl3GALFJyKoLhTyY EDyErh0UEnzDVr3AXd4VYhZWe BzZWP0QdTpIRUaMAC2ATV1EEw zvkyyLQw7IWScPIzarmFpNQfs AjlvMWlwX03puVCzPKUXXbvon GFpblxlcGljTmVzdERvYzEgDQ vweKXwqHMpKV6UUHv5beGoBHK uYKCuJhGrXXamWmSdYQs9DOBw kO0tGa4pfXPswG7bAQxgKzLhO GXqu8t9rYA1vVUjzHB2bNNvjI kfRM7gxVPwKP8nYTgug5PhaKD kNS94ySTqwdUmmeZkIx4ly4La WR9gf1UkUusmgLG3UYPzW9j6X ncwQJFhYF49bTWoaAdhIRKfyo EfC9OiUJRhv2FvfCYnrVSpg6X gdGFuLXdoaXRlIHNvZnQgdGlz w9ZoYHAbB7RwS6B9fC1nTJOcA PJoBWR4DPMmRkB9FCPsQGEniK 9yYNCmMCHfvFZttL2vleGquhU zuWDqpDG2IQRzfC1zlL28vqLb elUxqwDyJ0Qnf5D1xGLwNOQjy fMBCqdyCBBjZVIrjPYQj5UeZG LGZjRCLe6TFHZszZORDUQ5BN4 dKUfzBZSoP4KlT5RoplX8k5wt sUmvm8MepADtOD3unFQyVW7BP WUtvkQbWChteAapuS0dMKm5 [facility] Work Phone: Pathology report relevant history Narrative l3eyrVByBUBir0yqTMYffUKlF aYcZlXmFoIxUlw6VJJjczJ5Ac y5LQMfJVisvJ3tTOSyWTwqS3s wyvZplWCyPAStACc7bQ7aoJbo oV9qYhZxDoHoXNLkwQFaneblR X6gyDxfmEEndDLcwH91m0a9uW NccGFyIH0= [facility] Work Phone: Resident Review d4hzkENsZAGewXJzIIvq Mlxhb xLjQLEduYLxX5GznqodEStrLC 3dTW1ldKcxdSMxvYQeSOSzBuQ xy4rgd415oMPll8jdOUMJxccc xKp2mQdwI05el4M9OqrhB37xf XRvQHG9YLNyACGmfPOkUMXkHG E6ELVtsHKdE8wdPNLcTA0vlmt qISliTStkDCVfmZU3EFOnyCTt S4IuGTRqXTjiHPWaraz1XuJhX o5myWUsyFonDAkxUSCsIXTeXU wdRHCqIxJlKUssJJkak6AkQJQ lXB0oggGrsLBij5Ryr4RaBxPn eJ1diV7iydH1ZDReFIAmpmbsy 1DpIUtyJXZavob8phQ6hL5tNU hqcJcyaRN6yS6zc5j4GDCmq2g lML44LYPGMF7abEVnR0XxfJ7w FCQCIB7syVKsWPVccbAzjBDho Q== [facility] Work Phone: [facility] Work Phone: Surgical pathology studyon 1 Surgical pathology study Pathology report.total SEE COMMENT Surgical Pathology Case: [id number] Authorizing Provider: Dominick Barbosa MD Collected: 07/13/2024 1408 Ordering Location: [facility] Received: 07/13/2024 1405 Pathologist: Shakir Ford DDS [...] submitted in toto in one cassette. [facility] Basophils Auto (Bld) [#/Vol] on 06-08-2024 Basophils (Bld) [#/Vol] 0.1 10 3/uL 0.0-0.1 [facility] Basophils/100 WBC Auto (Bld) on 06-08-2024 Basophils/100 WBC (Bld) 1.2 % 0.2-2.0 [facility] Cholesterol in LDL Calc [Mas s/Vol]on 06-08-2024 Cholesterol in LDL [Mass/Vol] 66.0 mg/dL [facility] Comment on above: <100 mg/dl [id number] 0-129 mg/dl NEAR OR ABOVE LEQKDOM916-429 mg/dl BORDERLINE HHMS461-556 mg/dl HIGH>190 mg/dl VERY HIGH Cholesterol in VLDL Calc [Ma ss/Vol]on 06-08-2024 Cholesterol in VLDL [Mass/Vol] 43.0 mg/dL [facility] Eosinophils/100 WBC Auto (Bl d)on 06-08-2024 Eosinophils/100 WBC (Bld) 3.1 % 0.9-7.0 [facility] Erythrocyte distribution wid th Auto (RBC) [Ratio]on 06-08-2024 Erythrocyte distribution width (RBC) [Ratio] 13.0 % 11.0-15.0 [facility] Estimated glomerular filtrat ion rate (GFR) non- Americanon 06-08-2024 GFR/1.73 sq M.predicted among non-blacks MDRD (S/P/Bld) [Vol rate/Area] mL/min/{1.73_m2} >=60 [facility] Globulin Calc (S) [Mass/Vol] on 06-08-2024 Globulin (S) [Mass/Vol] 4.1 g/dL [facility] Glucose mean value [Mass/vol ume] in Blood Estimated from glycated hemoglobinon 06-08-2024 Average glucose Estimated from glycated hemoglobin (Bld) [Mass/Vol] 128 mg/dL [facility] Hematocrit Auto (Bld) [Volum e fraction]on 06-08-2024 Hematocrit (Bld) [Volume fraction] 45.3 % 42.0-54.0 [facility] Hemoglobin [Mass/volume] in Bloodon 06-08-2024 Hemoglobin (Bld) [Mass/Vol] 14.6 g/dL 14.0-18.0 [facility] Laboratory - Chemistry and C hemistry - challengeon 06-08-2024 Albumin [Mass/Vol] 3.6 g/dL 3.4-5.0 [facility] ALP [Catalytic activity/Vol] 86 U/L 46-116 [facility] ALT [Catalytic activity/Vol] 46 U/L 16-63 [facility] AST [Catalytic activity/Vol] 27 U/L 15-37 [facility] Bilirubin [Mass/Vol] 0.5 mg/dL 0.2-1.0 [facility] Calcium [Mass/Vol] 9.3 mg/dL 8.5-10.1 [facility] Chloride [Moles/Vol] 100 mmol/L 98-107 [facility] Cholesterol [Mass/Vol] 147 mg/dL <=200 [facility] Cholesterol in HDL [Mass/Vol] 38 mg/dL Low 40-60 [facility] Comment on above: > or =60 mg/dl - LOW CARDIOVASCULAR RISK<40 mg/dl - HIGH CARDIOVASCULAR RISK CO2 [Moles/Vol] 28.7 mmol/L 21.0-32.0 [facility] Creatinine [Mass/Vol] 0.93 mg/dL 0.70-1.30 [facility] GFR/1.73 sq M.predicted MDRD (S/P/Bld) [Vol rate/Area] mL/min/{1.73_m2} >=60 [facility] Glucose [Mass/Vol] 121 mg/dL High 74-106 [facility] Potassium [Moles/Vol] 4.2 mmol/L 3.5-5.1 [facility] Protein [Mass/Vol] 7.7 g/dL 6.4-8.2 [facility] Sodium [Moles/Vol] 138 mmol/L 136-145 [facility] Triglyceride [Mass/Vol] 215 mg/dL High <=150 [facility] TSH Qn 3.486 m[IU]/L 0.358-3.740 [facility] Urea nitrogen [Mass/Vol] 16.0 mg/dL 7.0-18.0 [facility] Urea nitrogen/Creatinine [Mass ratio] 17.2 mg/mg [facility] Laboratory - Hematology and Cell countson 06-08-2024 HbA1c (Bld) [Mass fraction] 6.1 % 4.5-6.2 [facility] Comment on above: ADA RECOMMENDED LIMI T 4.0 - 6.0ADA THERAPEUTIC TARGET < 7.0ACTION SUGGESTED> 7.0 Immature granulocytes/100 WBC (Bld) 0.3 % 0.0-0.5 [facility] Leukocytes [#/volume] correc giselle for nucleated erythrocytes in Blood by Automated counon 06-08-2024 WBC corrected for nucl RBC Auto (Bld) [#/Vol] 7.2 10 3/uL 4.0-11.0 [facility] Lymphocytes Auto (Bld) [#/Vo l]on 06-08-2024 Lymphocytes (Bld) [#/Vol] 2.3 10 3/uL 1.2-3.8 [facility] Lymphocytes/100 WBC Auto (Bl d)on 06-08-2024 Lymphocytes/100 WBC (Bld) 32.3 % 20.5-60.0 [facility] MCH Auto (RBC) [Entitic mass ]on 06-08-2024 MCH (RBC) [Entitic mass] 29.0 pg 25.9-34.0 [facility] MCHC Auto (RBC) [Mass/Vol]on 06-08-2024 MCHC (RBC) [Mass/Vol] 32.2 g/dL 29.9-35.2 [facility] MCV Auto (RBC) [Entitic vol] on 06-08-2024 MCV (RBC) [Entitic vol] 89.9 fL 80.0-94.0 [facility] Monocytes Auto (Bld) [#/Vol] on 06-08-2024 Monocytes (Bld) [#/Vol] 0.4 10 3/uL 0.3-0.8 [facility] Monocytes/100 WBC Auto (Bld) on 06-08-2024 Monocytes/100 WBC (Bld) 6.1 % 1.7-12.0 [facility] Neutrophils Auto (Bld) [#/Vo l]on 06-08-2024 Neutrophils (Bld) [#/Vol] 4.1 10 3/uL 1.4-6.5 [facility] Neutrophils/100 WBC Auto (Bl d)on 06-08-2024 Neutrophils/100 WBC (Bld) 57.0 % 43.0-75.0 [facility] No Panel Informationon 06-08 Eosinophils # (Auto) 0.2 10 3/uL 0.0-0.7 [facility] Immature Granulocyte # (Auto) 0.02 10 3/uL 0.00-0.03 [facility] Platelet mean volume Auto (B ld) [Entitic vol]on 06-08-2024 Platelet mean volume (Bld) [Entitic vol] 10.0 fL 9.5-13.5 [facility] Platelets Auto (Bld) [#/Vol] on 06-08-2024 Platelets (Bld) [#/Vol] 355 10 3/uL 150-450 [facility] RBC Auto (Bld) [#/Vol]on RBC (Bld) [#/Vol] 5.04 10 6/uL 4.70-6.10 [facility] Serum or plasma albumin/glob ulin mass ratioon 06-08-2024 Albumin/Globulin [Mass ratio] 0.9 {ratio} [facility] Serum or plasma anion gap de terminationon 06-08-2024 Anion gap [Moles/Vol] 13.5 mmol/L [facility] Serum or plasma total choles terol/high density lipoprotein (HDL) cholesterol mass maria luz 06-08-2024 Cholesterol.total/C holesterol in HDL [Mass ratio] 3.9 {ratio} [facility] Comment on above: 3.3 - 4.4 LOW [...] reviewed this case. Diagnostic interpretation performed at [facility] [address] [facility] [address] Clinical History: Physician Contact Number: [phone] Fixative (A): Saline Fixative (B): Saline Clinical [...] specimen is entirely submitted in 7 cassettes. [facility] B: Received in formalin, labeled with the patient's name and hospital number and B, microdebrider contents , are multiple, irregular segments of blood and soft tissue aggregating to 5.4 x 3.7 x 1.5 cm. Night Cleaner sections are submitted in 8 cassettes [facility] Note: Per the pathologist, the rest of specimen B is submitted in toto in 17 additional cassettes. 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 Please feel free to contact my office by calling [phone] with any questions. Provider Impressions 1. Inverted [...] (Please see procedure below.) SINONASAL ENDOSCOPY (CPT 07838): To better evaluate the patient's symptoms, sinonasal [...] free to contact my office by calling [phone] with any questions. Provider Impressions 1. Inverted [...] day Tylenol TABS Vitals Vital Signs Recorded: [id number] 07:57AM Height6 ft Yutsud635 lb 8 oz BMI Uqzqgzbnsf19.81 kg/m2 BSA Calculated2.89 Tobacco Useb) No Falls [...] (Please see procedure below.) SINONASAL ENDOSCOPY (CPT 40144): To better evaluate the patient's symptoms, sinonasal [...] May 27 2023 8:22AM EST (Author) Normal MTailor Tobacco Screening.on 023 Fall risk assessment a) No falls within the last year [facility] Work Phone: Tobacco use status CPHS b) No [facility] Work Phone: Established Visit (Otolaryng ology)on 05-20-2023 Established Visit (Otolaryngology) Diagnoses/Problems Chronic ethmoidal sinusitis (473.2) (J32.2) Chronic maxillary sinusitis (473.0) (J32.0) 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 Please feel free to contact my office by calling [phone] with any questions. Provider Impressions 1. Inverted [...] asked him to reach out to my pathology secretary and we discussed some time parameters [...] TIMES DAILY NEEDED. Vitals Vital Signs Recorded: [id number] 12:20PM Height6 ft Acnplu352 lb 3.2 oz BMI Vfkyirushk23.31 kg/m2 BSA Calculated2.91 Tobacco Useb) No PHQ-2 [...] (Please see procedure below.) SINONASAL ENDOSCOPY (CPT 92546): To better evaluate the patient's symptoms, sinonasal [...] Screening.on 023 Adult depression screening assessment No [facility] Work Phone: Fall risk assessment a) No falls within the last year [facility] Work Phone: Tobacco use status CPHS b) No -Otolaryng [facility] 4100 Work Phone: No Panel Informationon 05-15 [facility] Work Phone: Order Reconciliationon 05-15 Order Reconciliation Page 1 Discharge Reconciliation Document Reconciliation Type: Discharge requested on behalf of Dominick Barbosa (Physician) done by Dominick Barbosa) Discharge - Reconciliation: 15-May-2023 16:08 by: Dominick Barbosa) Discharge - Reset to Incomplete: 15-May-2023 16:16 by: Dominick Barbosa) Discharge - Reconciliation: 15-May-2023 17:02 by: oDminick Barbosa) Home Medications EnteredHOME MEDICATIONS AT DISCHARGE [...] content not included)... Normal [facility] Patient Profile - Preop v3on 05-15-2023 Patient Profile - Preop v3 Patient Profile - Preop: Initial Info: Patient DemographicsName: WALE [place] Date: 2000 Address: [facility] [address] [address], [address] Primary Phone [phone] How to be AddressedDylan Spoken Language PreferredEnglish Stated Reason for Admissioninverted papilloma Primary Contact Name and Numbereve Stern [phone] Limitations on Visitors/Phone Callsnone Medications Brought to Hospitalno General Health: Weight in kg185.1 kilogram(s) Weight in fat549 pound(s) Height in feet5 feet Height in .97 inch(es) Height in cm182.8 centimeter(s) BMI (kg/m2)55.392 square meter Patient or Family Member Reaction to Anesthesiano previous reaction Blood Avoidance/Restrictionsnon e Previous Transfusion Reactionno Health Mgmt: Symptoms/Conditions Managed at Homerespiratory Respiratory Symptoms/Conditionssleep disordered breathing Barriers to Managing Healthnone Relationship/Environ: Lives Withparent(s) Living Arrangementshouse Living Environment Commentsmom Resource/Environmental Concernsnone Anticipated [place] [facility] Anticipated at Transitionnone Tobacco Use: Tobacco [...] Updated: 15-May-2023 11:21 by Ginny Cohen) Normal [facility] Surgical Pathology Depar tmenton 05-15-2023 [facility] Surgical Pathology Department Name WALE MI [...] reviewed this case. Diagnostic interpretation performed at [facility] [id number] [place] [id number] Clinical History: Physician Contact Number: [phone] Fixative (A): Saline Fixative (B): Saline Clinical [...] specimen is entirely submitted in 7 cassettes. [facility] B: Received in formalin, labeled with the patient's name and hospital number and B, microdebrider contents , are multiple, irregular segments of blood and soft tissue aggregating to 5.4 x 3.7 x 1.5 cm. Night Cleaner sections are submitted in 8 cassettes [facility] Note: Per the pathologist, the rest of specimen B is submitted in toto in 17 additional cassettes. [facility]/05/19/2023 [facility] Department of Pathology [address] [place] [address] Normal [facility] Comment on above: Performed By: #### U HCS #### [facility] Surgical Pathology Department [address] [facility] [address] BASIC METABOLIC PANELon 08-0 Anion gap [Moles/Vol] 16 mmol/L Normal 10 - 20 [facility] Comment on above: Performed By: #### B MP #### [facility] [address] [place] [address] Calcium [Mass/Vol] 9.8 mg/dL Normal 8.6 - 10.6 [facility] Comment on above: Performed By: #### B MP #### [facility] [address] [place] [address] Chloride [Moles/Vol] 101 mmol/L Normal 98 - 107 [facility] Comment on above: Performed By: #### B MP #### [facility] [address] [place] [address] Creatinine [Mass/Vol] 0.81 mg/dL Normal 0.50 - 1.30 [facility] Comment on above: Performed By: #### B MP #### [facility] [address] [place] [address] eGFR MALE >90 Normal >90 [facility] Comment on above: Result Comment: CALC ULATIONS OF ESTIMATED GFR ARE PERFORMED USING THE 2020 CKD-EPI STUDY REFIT EQUATION WITHOUT THE RACE VARIABLE FOR THE IDMS-TRACEABLE CREATININE METHODS. https://jasn.asnjournals.org/content/early/ASN.74585798 88 Performed By: #### B MP #### [facility] [address] [place] [address] Glucose [Mass/Vol] 81 mg/dL Normal 74 - 99 [facility] Comment on above: Performed By: #### B MP #### [facility] [address] [place] [address] HCO3 (Bld) [Moles/Vol] 27 mmol/L Normal 21 - 32 [facility] Comment on above: Performed By: #### B MP #### [facility] [address] [place] [address] Potassium [Moles/Vol] 4.5 mmol/L Normal 3.5 - 5.3 [facility] Comment on above: Performed By: #### B MP #### [facility] [address] [place] [address] Sodium [Moles/Vol] 139 mmol/L Normal 136 - 145 [place] [facility] Comment on above: Performed By: #### B MP #### [facility] [address] [place] [address] Urea nitrogen [Mass/Vol] 13 mg/dL Normal 6 - 23 [facility] Comment on above: Performed By: #### B MP #### [facility] [address] [place] [address] CBCon 05-12-2023 Erythrocyte distribution width (RBC) [Ratio] 13.0 % Normal 11.5 - 14.5 [facility] Comment on above: Performed By: #### C BC #### [facility] [address] [place] [address] Hematocrit (Bld) [Volume fraction] 47.2 % Normal 41.0 - 52.0 [facility] Comment on above: Performed By: #### C BC #### [facility] [address] [place] [address] Hemoglobin (Bld) [Mass/Vol] 14.4 g/dL Normal 13.5 - 17.5 [facility] Comment on above: Performed By: #### C BC #### [facility] [address] [place] [address] MCHC (RBC) [Mass/Vol] 30.5 g/dL Low 32.0 - 36.0 [facility] Comment on above: Performed By: #### C BC #### [facility] [address] [place] [address] MCV (RBC) [Entitic vol] 94 fL Normal 80 - 100 [facility] Comment on above: Performed By: #### C BC #### [facility] [address] [place] [address] NUCLEATED RBC 0.0 /100 WBC Normal 0.0-0.0 [facility] Comment on above: Performed By: #### C BC #### [facility] [address] [place] [address] Platelets (Bld) [#/Vol] 400 10*3/uL Normal 150 - 450 [facility] Comment on above: Performed By: #### C BC #### [facility] [address] [place] [address] RBC 5.03 x10E12/L Normal 4.50 - 5.90 [facility] Comment on above: Performed By: #### C BC #### [facility] [address] [place] [address] WBC (Bld) [#/Vol] 9.2 10*3/uL Normal 4.4 - 11.3 [facility] Comment on above: Performed By: #### C BC #### [facility] [address] [place] [address] Laboratory - Chemistry and C hemistry - challengeon 05-12-2023 Anion gap [Moles/Vol] 16 mmol/L 10 - 20 [facility]Otolaryng o[facility]y-[facility] 4100 Work Phone: [phone] Calcium [Mass/Vol] 9.8 mg/dL 8.6 - 10.6 MG-Geovanni laryng ology-[facility] 4100 Work Phone: [phone] Chloride [Moles/Vol] 101 mmol/L 98 - 107 [facility]tolaryng [facility] 4100 Work Phone: [phone] CO2 [Moles/Vol] 27 mmol/L 21 - 32 MG-Otolar yng ology-[facility] 4100 Work Phone: [phone] Creatinine [Mass/Vol] 0.81 mg/dL See Below MG-Otolaryng ology-[facility] [place] [address] Work Phone: [phone] Comment on above: Reference Range: 0.5 0 - 1.30 Glucose [Mass/Vol] 81 mg/dL 74 - 99 [facility]-Geovanni laryng ology-[facility] 4100 Work Phone: [phone] Potassium [Moles/Vol] 4.5 mmol/L 3.5 - 5.3 [facility]tolaryng ology[facility] 4[address] Work Phone: [phone] Sodium [Moles/Vol] 139 mmol/L 136 - 145 [facility]-Geovanni laryng ology[facility] 4100 Work Phone: [phone] Urea nitrogen [Mass/Vol] 13 mg/dL 6 - 23 [facility] 4[address] Work Phone: [phone] Laboratory - Hematology and Cell countson 05-12-2023 Erythrocyte distribution width (RBC) [Ratio] 13.0 % See Below MG-Otolaryng ology[facility] 4[address] Work Phone: Comment on above: Reference Range: 11. 5 - 14.5 Hematocrit (Bld) [Volume fraction] 47.2 % See Below [place] [address] Work Phone: Comment on above: Reference Range: 41. 0 - 52.0 Hemoglobin (Bld) [Mass/Vol] 14.4 g/dL See Below [place] [address] Work Phone: Comment on above: Reference Range: 13. 5 - 17.5 MCHC (RBC) [Mass/Vol] 30.5 g/dL below low threshold See Below [place] [address] Work Phone: Comment on above: Reference Range: 32. 0 - 36.0 MCV (RBC) [Entitic vol] 94 fL 80 - 100 [place] [address] Work Phone: Platelets (Bld) [#/Vol] 400 10*3/uL 150 - 450 [place] [address] Work Phone: RBC (Bld) [#/Vol] 5.03 {x10E12/L} See Below [place] [address] Work Phone: Comment on above: Reference Range: 4.5 0 - 5.90 WBC (Bld) [#/Vol] 9.2 10*3/uL 4.4 - 11.3 [place] [address] Work Phone: No Panel Informationon 05-12 >90 >90 [place] [address] Work Phone: Comment on above: CALCULATIONS OF AMANDA MATED GFR ARE PERFORMED USING THE 2020 CKD-EPI STUDY REFIT EQUATION WITHOUT THE RACE VARIABLE FOR THE IDMS-TRACEABLE CREATININE METHODS.https://jasn.asnjournals.org/content//ASN. 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 Provider Impressions 1. Inverted [...] DAILY UNTIL FINISHED. Vitals Vital Signs Recorded: [id number] 01:56PM Height6 ft Kqtbum998 lb 9 oz BMI Rnjcjkbuwp35.63 kg/m2 BSA Calculated2.91 Tobacco Useb) No PHQ-2 [...] Adult depression screening assessment No -Otolarynjosef Person [employer] Work Phone: Fall risk assessment a) No falls within the last year [employer]-Jennifer molina Work Phone: Tobacco use status CPHS b) No [employer]-Otolarynjosef olmerlyny-Kateryna [employer] Work Phone: Established Visit (Otolaryng ology)on 01-06-2023 Established Visit (Otolaryngology) Diagnoses/Problems Chronic ethmoidal sinusitis (473.2) (J32.2) Chronic maxillary sinusitis (473.0) (J32.0) Nasal congestion (478.19) (R09.81) 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 Provider Impressions 1. Inverted [...] No Known Drug Allergies Recorded By: Gina Jean-Baptiset; 09/21/2019 9:13:55 AM Pollen Recorded By: Gina Jean-Baptiste; 09/21/2019 9:13:55 AM Current Meds Medication NameInstruction Amoxicillin-Pot Clavulanate 875-125 MG Oral TabletTAKE 1 TABLET TWICE DAILY UNTIL FINISHED. 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 Please feel free to contact my office by calling [phone] with any questions. Provider Impressions 1. Inverted [...] No Reported Medications Vitals Vital Signs Recorded: [id number] 04:13PM Height6 ft Wiyilg733 lb 8 oz BMI Vejwuzxdpu43.89 kg/m2 BSA Calculated2.92 Tobacco Useb) No PHQ-2 [...] (Please see procedure below.) SINONASAL ENDOSCOPY (CPT 92404): To better evaluate the patient's symptoms, sinonasal endoscopy is indicated. After discussion of risks and benefits, and topical decongestion and anesthesia,an endoscope was used to perform (more content not included)... Normal MTailor Tobacco Screening.on 023 Adult depression screening assessment No [employer]-OtolarynDiavibe[employer] Work Phone: Fall risk assessment a) No falls within the last year [employer] Work Phone: Tobacco use status CPHS b) No [facility]-Otolaryng [employer] Work Phone: MRI LSPINE WO CONon 07-23-20 [...] by: ANTONIO WEINSTEIN Date: 2022-07-23 12:04 Normal [facility] XR LSPINE 2_3 VIEWSon 2021 [...] by: ANTONIO WEINSTEIN Date: 2022-02-18 15:30 Normal [facility] Pathology Reporton 0 Pathology Report [id number]:12 7 Normal [facility] Coding Summary.on 08-31-2019 Coding Summary. CODING DATE: 019 FINAL [facility] STATUS: Home (Routine DC) PAYOR: [facility] APC DESCRIPTION 5155 Level 5 Airway Endoscopy ADMIT DX: REASON FOR VISIT DX: J32.4 Chronic pansinusitis FINAL DX: PRINCIPAL: J32.4 Chronic pansinusitis SECONDARY: J34.89 Other specified disorders of nose and nasal sinuses J45.909 Unspecified asthma, uncomplicated G47.30 Sleep apnea, unspecified Z99.89 Dependence on other enabling machines and devices PYMT PROC APC STAT DESCRIPTION DOCTOR NAME DATE 86025 5156 J1 Nasal/sinus endoscopy, Jeferson HUBBARD, Yolette Ureña 08/25/2019 surgical with ethmoidectomy; total (anterior and posterior), including sphenoidotomy, with removal of tissue from the sphenoid sinus RT Right side (used to identify procedures performed on the right side of the body) 45037 5155 J1 Nasal/sinus endoscopyJeferson MD, Hilary H 08/25/2019 surgical, with maxillary antrostomy; with removal of tissue from maxillary sinus RT Right side (used to identify procedures performed on the right side of the body) 13977 5155 J1 Nasal/sinus endoscopyJeferson MD, Hilary H 08/25/2019 surgical, with frontal sinus exploration, including removal of tissue from frontal sinus, when performed RT Right side (used to identify procedures performed on the right side of the body) 75146 Anesthesia for Loyd López Jr., DO 08/25/2019 procedures on nose and accessory sinuses; not otherwise specified NOTE: The code number assigned matches the documented diagnosis and / or procedure in the patient's chart. However, the narrative phrase printed from the coding software may appear abbreviated, or result in slightly different terminology. Revised Coded By: Ngoc Campo Revised Date Saved: 08/31/2019 10:48 am Normal [facility] Main OR Intraoperative Recor don 08-29-2019 Main OR Intraoperative Record IntraOp Document Type FT Summary Primary Physician: Yolette Govea MD Finalized Date/Time: 08/29/19 09:29:47 Pt. Name: WALE MI/Sex: 2000 Male Med Rec #: [id number] Physician: Yolette Govea MD Financial #: [id number] Pt. Type: A Room/Bed: [facility]/ Admit/Disch: 08/25/19 09:16:00 - 08/25/19 15:30:00 Institution: [...] to review and send charges Kristy Arcenio [facility] Case Attendance FT Entry 1 Entry 2 Entry 3 Case Attendee Rene Nava DO, Loyd Govea MD, Yolette Kimball RN, Jomar Morales Role Performed Anesthesiologist of Surgeon - Primary Geophysical Laboratory Chief - Primary Record Time In 08/25/19 10:37:00 08/25/19 10:37:00 08/25/19 10:37:00 Time Out 08/25/19 13:03:00 08/25/19 13:03:00 08/25/19 13:03:00 Procedure ANTROSTOMY TURBINECTOMY ANTROSTOMY TURBINECTOMY ANTROSTOMY TURBINECTOMY ETHMOIDECTOMY IM(Right) ETHMOIDECTOMY IM(Right) ETHMOIDECTOMY IM(Right) Comments out of room from 4013-4547. Last Modified By: Patrick INFANTE, Nelly Nguyen RN, Nelly Robison RN 08/25/19 13:05:43 08/25/19 13:05:43 08/25/19 13:05:43 Entry 4 Entry 5 Entry 6 Case Attendee Patrick INFANTE, Nelly Aguilar SUPERINTENDENT TRACK, Enzo Tijerina SUPERINTENDENT TRACK, Sheba Segovia Role Performed Geophysical Laboratory Chief - Primary Scrub - Primary Scrub - Relief Time In 08/25/19 10:37:00 08/25/19 10:37:00 08/25/19 11:40:00 Time Out 08/25/19 13:03:00 08/25/19 13:03:00 08/25/19 12:14:00 Procedure ANTROSTOMY TURBINECTOMY ANTROSTOMY TURBINECTOMY ANTROSTOMY TURBINECTOMY ETHMOIDECTOMY IM(Right) ETHMOIDECTOMY IM(Right) ETHMOIDECTOMY IM(Right) Comments out for lunch at out for lunch at [phone] Last Modified By: Patrick INFANTE, Nelly Nguyen [...] and tissue Entry 1 Skin Integrity Intact, [place], Warm, and Skin Abnormality No Dry Outcomes [...] 08/25/19 11:42:00 By Rehana INFANTE, Breezy Staton SUPERINTENDENT TRACK, Jeff Marcano CST, Jeff Giraldo CST, Enzo [...] L Patient Status Stable Skin. Condition Intact, [place], Warm, and Dry Airway Maintenance Oxygen in Use? Yes Airway Device Simple Mask Flow Rate 10 L/min Outcomes Met? Yes Last Modified By: Jomar Kimball RN 08/25/19 11:48:09 Post-Care Text: The patient is free from signs and symptoms of injury related to transfer/transport General Comments: handoff report given to pacu nurse. ARELIS Whelansort line worker Administration FT Pre-Care Text: Verifies allergies, administers prescribed medications and solutions, administers prescribed antibiotic therapy and immunizing agents as ordered, evaluates response to medications Administers prescribed medications and solutions Entry 1 Expiration Date Yes Outcomes Met? Yes Verified Last Modified By: Nelly Nguyen RN 08/25/19 10:03:51 Post-Care Text: The patient received appropriate medication(s) safely administered during the perioperative period For Wayne-Manati please see scanned medication reconcilliation form for [...] AIR Quantity 1 Aid PLUS LOWER BODY [AQ9600-WA][F] Fluid/Topaz Unit Mistral warming system Setting high/43 degrees Body Site Lower anterior torso Last Modified By: Nelly Nguyen RN 08/25/19 10:05:52 Case Comments Finalized By: Melisa Rg CST Document Signatures Signed By: Nelly Nguyen RN 08/25/19 13:06 ALEXIS Hines RN, Andrea 08/26/19 11:19 Melisa Rg CST 08/29/19 09:29 Normal [facility] Operative Reporton 11-22-201 9 Operative Report [...] Yolette Govea Jr., M.D. aek Dictated: 08/25/2019 #[id number] Typed: 08/26/2019 #[id number] cc: Wiliam Carrillo Jr., M.D. [facility] Comment on above: Result Comment: Elec tronically Signed By: Yolette Govea MD\.br\Date and Time Signed: 08/26/19 09:56 EST Inpatient Patient Summaryon 08-25-2019 Inpatient Patient Summary [facility] Clinical Discharge Instructions PERSON INFORMATION Name: [place] PHYSICIANS Admitting Physician: Yolette Govea MD Attending Physician: Yolette Govae MD PCP: ENZO COLEMAN DO Discharge Diagnosis: Chronic pansinusitis Comment: PATIENT EDUCATION INFORMATION Instructions: Post Op Patient Instructions - FT (CUSTOM) Medication Leaflets: Follow up: With: Address: When: Yolette Govea [address] [place] [address] Business (1) In 6 days 08/31/2019 Comments: Call for followup appointment MEDICATION LIST Comment: Keshav [facility] Main OR PACU I Recordon 08-06 Main OR PACU I Record PACU Phase I Document Type FT Summary Primary Physician: Yolette Govea MD Finalized Date/Time: 08/25/19 13:39:03 Pt. Name: WALE MI/Sex: 2000 Male Med Rec #: [id number] Physician: Yoletet Govea MD Financial #: [id number] Pt. Type: A Room/Bed: [place] [address] Admit/Disch: 08/25/19 09:16:27 - Institution: Case Times [...] By: Jesenia Phan RN 08/25/19 13:39 Normal [facility] Main OR PACU II Recordon Main OR PACU II Record PACU Phase II Document Type FT Summary Primary Physician: Yolette Govea MD Finalized Date/Time: 08/25/19 15:29:24 Pt. Name: SHMUELWALE/Sex: 2000 Male Med Rec #: [id number] Physician: Yolette Govea MD Financial #: [id number] Pt. Type: A Room/Bed: [facility]/ Admit/Disch: 08/25/19 09:16:27 - Institution: Case Times [...] By: Heavenly Hager RN 08/25/19 15:29 Normal [facility] Main OR Preoperative Recordo n 08-25-2019 Main OR Preoperative Record PreOp Document Type FT Summary Primary Physician: Yolette Govea MD Finalized Date/Time: 08/25/19 11:07:39 Pt. Name: WALE MI/Sex: 2000 Male Med Rec #: [id number] Physician: Yolette Govea MD Financial #: [id number] Pt. Type: A Room/Bed: [facility] Admit/Disch: [...] By: Nelly Nguyen RN 08/25/19 11:07 Normal [facility] Operative Reporton 9 Operative Report Patient: Ministerio MI Age: 18 years Sex: Male : 2000 Associated Diagnoses: None Author: Yolette Govea MD Postoperative Information Procedure: RT IG microdebrider assisted MMA with r/o tissue, total ethmoidectomy, frontal sinusotomy, sphenoidotomy with r/o tissue Preoperative Diagnosis: Chronic pansinusitis (TRC66-DO J32.4, Working, Medical). Postoperative Diagnosis: Chronic pansinusitis (JYC32-ON J32.4, Discharge, Medical). Performed by: Yolette Govea MD. 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 Specimens Removed: nasal polyp, RT sinus contents, RT sinus sock, RT max sinus tissue, RT sphenoid tissue. Estimated Blood Loss: 100 ml. Medications Complications: None. Normal [facility] Comment on above: Result Comment: Elec tronically Signed By: Yolette Govea MD\.br\Date and Time Signed: 08/25/19 13:21 EST Patient Education - Texton 1 10-25-2018 Patient Education - Text Normal [facility] Coding Summary.on 08-22-2019 Coding Summary. CODING DATE: 019 FINAL [facility] STATUS: Home (Routine DC) PAYOR: [facility] DESCRIPTION 5521 Level 1 Imaging without [...] CphT Date Saved: 08/22/2019 11:03 am Normal [facility] Auto Diffon 08-19-2019 Basophils/100 WBC (Bld) 1.4 % Normal 0.0-2.0 [facility] Comment on above: Order Comment: Order Added by Discern Expert. Performed By: #### 2 157430, 2287468, [id number] #### [facility] [address] [place] [address] Basophils/Leukocyte s Auto (Bld) [Pure # fraction] 0.2 E9/L Normal 0.0-0.2 [facility] Comment on above: Order Comment: Order Added by Discern Expert. Performed By: #### 2 510787, [id number], [id number] #### [facility] [address] [place] [address] Eosinophils/100 WBC (Bld) 1.1 % Normal 0.0-8.0 [facility] Comment on above: Order Comment: Order Added by Discern Expert. Performed By: #### 2 818541, 4477859, [id number] #### [facility] [address] [place] [address] Eosinophils/Leukocy carlos Auto (Bld) [Pure # fraction] 0.1 E9/L Normal 0.0-0.5 [facility] Comment on above: Order Comment: Order Added by Discern Expert. Performed By: #### 2 975556, 6877556, [id number] #### [facility] [address] [place] [address] Lymphocytes/100 WBC (Bld) 21.2 % Normal 14.0-50.0 [facility] Comment on above: Order Comment: Order Added by Discern Expert. Performed By: #### 2 936318, 3602629, [id number] #### [facility] [address] [place] [address] Lymphocytes/Leukocy carlos Auto (Bld) [Pure # fraction] 2.3 E9/L Normal 1.0-4.0 [facility] Comment on above: Order Comment: Order Added by Discern Expert. Performed By: #### 2 032280, 7812236, [id number] #### [facility] [address] [place] [address] Monocytes/100 WBC (Bld) 5.4 % Normal 4.0-14.0 [facility] Comment on above: Order Comment: Order Added by Discern Expert. Performed By: #### 2 758742, 2282644, [id number] #### [facility] [address] [place] [address] Monocytes/Leukocyte s Auto (Bld) [Pure # fraction] 0.6 E9/L Normal 0.2-1.0 [facility] Comment on above: Order Comment: Order Added by Discern Expert. Performed By: #### 2 575228, 7475042, [id number] #### [facility] [address] [place] [address] Neutrophils/100 WBC (Bld) 70.9 % Normal 36.0-75.0 [facility] Comment on above: Order Comment: Order Added by Discern Expert. Performed By: #### 2 462593, 7664902, 82806006 #### [facility] [address] [place] [address] Neutrophils/Leukocy carlos Auto (Bld) [Pure # fraction] 7.6 E9/L High 2.0-7.5 [facility] Comment on above: Order Comment: Order Added by Discern Expert. Performed By: #### 2 804425, 6399855, [id number] #### [facility] [address] [place] [address] BUNon 08-19-2019 Urea nitrogen [Mass/Vol] 12 mg/dL Normal 5-21 [facility] Comment on above: Performed By: #### 2 636354, 8225843, 37273574, 7329912, 2838588 #### [facility] [address] [place] [address] CBC w/ Auto Diffon 9 Erythrocyte distribution width (RBC) [Ratio] 14.1 % Normal 10.9-14.2 [facility] Comment on above: Performed By: #### 2 004434, 1545029, 70967580 #### [facility] [address] [place] [address] Hematocrit (Bld) [Volume fraction] 48.4 % Normal 37.7-49.0 [facility] Comment on above: Performed By: #### 2 965282, 1520628, [id number] #### [facility] [address] [place] [address] Hemoglobin (Bld) [Mass/Vol] 16.2 g/dL Normal 13.5-17.5 [facility] Comment on above: Performed By: #### 2 521705, 4631794, 41531697 #### [facility] [address] [place] [address] MCH (RBC) [Entitic mass] 29.0 pg Normal 27.0-34.0 [facility] Comment on above: Performed By: #### 2 539466, 3525796, 08420309 #### [facility] [address] [place] [address] MCHC (RBC) [Mass/Vol] 33.6 g/dL Normal 31.4-36.0 [facility] Comment on above: Performed By: #### 2 679634, 2092058, 75847147 #### [facility] [address] [place] [address] MCV (RBC) [Entitic vol] 86.5 fL Normal 80.0-100.0 [facility] Comment on above: Performed By: #### 2 173456, 8174086, 77409254 #### [facility] [address] [place] [address] Platelet mean volume (Bld) [Entitic vol] 8.7 fL Normal 6.4-10.8 [facility] Comment on above: Performed By: #### 2 372522, 2156421, 70869165 #### [facility] [address] [place] [address] Platelets (Bld) [#/Vol] 351.0 E9/L Normal 150.0-500.0 [facility] Comment on above: Performed By: #### 2 528270, 0718276, 25360750 #### [facility] [address] [place] [address] RBC (Bld) [#/Vol] 5.6 E12/L Normal 4.3-5.9 [facility] Comment on above: Performed By: #### 2 035813, 6626586, 28795155 #### [facility] [address] [place] [address] WBC corrected for nucl RBC Auto (Bld) [#/Vol] 10.7 E9/L Normal 4.0-11.0 [facility] Comment on above: Performed By: #### 2 382029, 9052084, 25086133 #### [facility] [address] [place] [address] Creatinineon 08-19-2019 Creatinine [Mass/Vol] 0.8 mg/dL Normal 0.5-1.3 [facility] Comment on above: Performed By: #### 2 177784, 5792576, 10135002, 0572814, 1875979 #### [facility] [address] [place] [address] Glucoseon 08-19-2019 Glucose [Mass/Vol] 97 mg/dL Normal 55-199 [facility] Comment on above: Performed By: #### 2 474872, 3584735, 44829691, 7039904, 1020669 #### [facility] [address] [place] [address] Lyteson 08-19-2019 Anion gap [Moles/Vol] 14 mmol/L Normal 6-16 [facility] Comment on above: Performed By: #### 2 005615, 9198516, 13796828, 8153315, 1810009 ####[facility] [address] [place] [address] Chloride [Moles/Vol] 104 mmol/L Normal 101-111 [facility] Comment on above: Performed By: #### 2 414562, 6485138, 33368926, 7605918, 6726010 ####[facility] [address] [place] [address] CO2 [Moles/Vol] 25 mmol/L Normal 21-31 [facility] Comment on above: Performed By: #### 2 301718, 7182203, 77817715, 6727001, 5580576 ####[facility] [address] [place] [address] Potassium [Moles/Vol] 3.5 mmol/L Normal 3.5-5.3 [facility] Comment on above: Performed By: #### 2 281147, 8021715, 28154697, 1859305, 0551828 ####[facility] [address] [place] [address] Sodium [Moles/Vol] 139 mmol/L Normal 135-145 [facility] Comment on above: Performed By: #### 2 729536, 5601293, 77902902, 6175588, 3339043 ####[facility] [address] [place] [address] PT & PTTon 08-19-2019 aPTT Coag (PPP) [Time] 35.7 second(s) Normal 25.1-36.5 [facility] Comment on above: Result Comment: Hepa rin therapeutic range (represented by Anti-Factor Xa activity of 0.2 - 0.4 U/mL) corresponds to PTT of 56.6 - 109.0 sec. Performed By: #### 2 322074, 9638885, 46438708 #### [facility] [address] [place] [address] INR Coag (PPP) [Relative time] 1.0 {INR} [facility] Comment on above: Result Comment: INR results are specifically intended to assess patients stabilized on long-term Anticoagulation therapy suggested INR?s ?Less Intensive Anticoagulation? 2.0 ? 3.0 Conventional Range 3.0 ? 4.5 Performed By: #### 2 [id number], [id number] #### [facility] [address] [place] [address] PT Coag (PPP) [Time] 11.6 second(s) Normal 10.2-12.9 [facility] Comment on above: Performed By: #### 2 [id number] #### [facility] [address] [place] [address] XR Chest 2 Viewson 9 XR Chest [...] M.D. Transcribed by: JAZMYNE Technologist: ZHANNA Normal [facility] eGFRon 08-19-2019 GFR/1.73 sq M predicted among blacks MDRD (S/P/Bld) [Vol rate/Area] mL/min/{1.73_m2} Normal >=59 [facility] Comment on above: Order Comment: Order added by Discern Expert. Result Comment: eGFR is race adjusted. AA=. Performed By: #### 2 [id number] #### [facility] [address] [place] [address] GFR/1.73 sq M predicted among non-blacks MDRD (S/P/Bld) [Vol rate/Area] mL/min/{1.73_m2} Normal >=59 [facility] Comment on above: Order Comment: Order added by Discern Expert. Result Comment: Cable Repairer niall kidney disease could be indicated at eGFR's of less than 60 mL/min/1.73m2. Kidney failure is indicated at less than 15 mL/min/1.73m2. Performed By: #### 2 [id number] #### [facility] [address] [place] [address] Coding Summary.on 08-08-2019 Coding Summary. CODING DATE: 019 FINAL [facility] DSC STATUS: Home (Routine DC) PAYOR: [facility] DESCRIPTION 5522 Level 2 Imaging without [...] CphT Date Saved: 08/08/2019 12:24 pm Normal [facility] CT Maxillofacial w/o Contras ton 08-07-2019 [...] M.D. Transcribed by: JAZMYNE Technologist: YOSEPH Parr [facility] Vital Signs Date Time Vital Sign Value Performing Clinician Facility 05-23-2025 15: Body height 182.25 cm Enzo Ball DO Work Phone: [facility] 05-23-2025 15:[id number] Body mass index (BMI) [Ratio] 56.5 kg/m2 Enzo Ball DO Work Phone: [facility] 05-23-2025 15:210400 Body weight 187.9 kg Enzo Ball DO Work Phone: [facility] 05-23-2025 15:21-0400 Diastolic blood pressure 80 mm[Hg] Enzo Ball DO Work Phone: [facility] 05-23-2025 15:21-0400 Heart rate 112 /min Enzo Ball DO Work Phone: [facility] 05-23-2025 15:21-0400 Respiratory rate 12 /min Enzo Ball DO Work Phone: [facility] 05-23-2025 15:21-0400 Systolic blood pressure 118 mm[Hg] Enzo Ball DO Work Phone: [facility] 01-16-2025 16:140400 Body height 182.25 cm [facility] 01-16-2025 16:140400 Body mass index (BMI) [Ratio] 56.4 kg/m2 [facility] 01-16-2025 16:14-0400 Body weight 187.44 kg [facility] 01-16-2025 16:14-0400 Diastolic blood pressure 108 mm[Hg] [facility] 01-16-2025 16:14-0400 Heart rate 102 /min [facility] 01-16-2025 16:14-0400 Respiratory rate 12 /min [facility] 01-16-2025 16:14-0400 SaO2% (BldA) [Mass fraction] 97 % [facility] 01-16-2025 16:14-0400 Systolic blood pressure 160 mm[Hg] [facility] 01-11-2025 15:29-0400 Body height 182.9 cm Dominick Barbosa MD Work Phone: 7(763)462-947813 [place] [address] 01-11-2025 15:29-0400 Body mass index (BMI) [Ratio] 55.95 kg/m2 Dominick Barbosa MD Work Phone: 3(673)336-844013 [place] [address] 01-11-2025 15:29-0400 Body weight 187.11 kg Dominick Barbosa MD Work Phone: 1(798)932-104313 [place] [address] 07-13-2024 13:18-0400 Body height 182.9 cm Dominick Barbosa MD Work Phone: 5(999)733-827513 [place] [address] 07-13-2024 13:18-0400 Body mass index (BMI) [Ratio] 56.42 kg/m2 Dominick Barbosa MD Work Phone: 1(057)428-520413 [place] [address] 07-13-2024 13:18-0400 Body weight 188.7 kg Dominick Barbosa MD Work Phone: 2(777)913-695313 [place] [address] 06-03-2024 14:05-0400 Body height 182.25 cm [facility] 06-03-2024 14:05-0400 Body mass index (BMI) [Ratio] 57.3 kg/m2 [facility] 06-03-2024 14:05-0400 Body weight 190.5 kg [facility] 06-03-2024 14:05-0400 Diastolic blood pressure 91 mm[Hg] [facility] 06-03-2024 14:05-0400 Heart rate 83 /min [facility] 06-03-2024 14:05-0400 Respiratory rate 12 /min [facility] 06-03-2024 14:05-0400 Systolic blood pressure 146 mm[Hg] [facility] 03-09-2024 15:02-0400 Body height 182.9 cm Dominick Barbosa MD Work Phone: [facility] 03-09-2024 15:02-0400 Body mass index (BMI) [Ratio] 56.32 kg/m2 Dominick Barbosa MD Work Phone: [facility] 03-09-2024 15:02-0400 Body weight 188.38 kg Dominick Barbosa MD Work Phone: [facility] 10-06-2023 12:15-0500 Body height 182.25 cm Enzo Ball Other [employer] [facility] [employer] Other 10-06-2023 12:15-0500 Body mass index (BMI) [Ratio] 54.62 kg/m2 Enzo Ball Other [employer] [facility] [employer] Other 10-06-2023 12:15-0500 Body weight 181.44 kg Enzo Ball Other [facility] [employer] Other 09-02-2023 15:29-0500 Body height 182.9 cm Dominick Barbosa MD Work Phone: [facility] 09-02-2023 15:29-0500 Body mass index (BMI) [Ratio] 54.37 kg/m2 Dominick Barbosa MD Work Phone: [facility] 09-02-2023 15:29-0500 Body weight 181.85 kg Dominick Barbosa MD Work Phone: [facility] 05-27-2023 07:57-0400 Body height 182.88 cm Enzo Coleman Work Phone: [facility] 4[facility] Work Phone: 05-27-2023 07:57-0400 Body mass index (BMI) [Ratio] 55.81 kg/m2 Enzo Coleman Work Phone: BY-Hzgxtigzyiunlw[facility] 4100 Work Phone: 05-27-2023 07:57-0400 Body surface area Derived from formula 2.89 m2 Enzo Coleman Work Phone: [facility] 4100 Work Phone: 05-27-2023 07:57-0400 Body weight 186.66 kg Enzo Coleman Work Phone: [facility]irm[facility]ojtbz[facility] 4100 Work Phone: 05-27-2023 07:57-0400 0 1 Enzo Coleman Work Phone: [facility] 4100 Work Phone: Comment on above: [employer] 05-20-2023 12:20-0400 Body height 182.88 cm Enzo Coleman Work Phone: [facility] 4100 Work Phone: 05-20-2023 12:20-0400 Body mass index (BMI) [Ratio] 56.31 kg/m2 Enzo Coleman Work Phone: [facility] 4100 Work Phone: 05-20-2023 12:20-0400 Body surface area Derived from formula 2.91 m2 Enzo Coleman Work Phone: NZ[facility]licytmjtxsmsx[facility] 4100 Work Phone: 05-20-2023 12:20-0400 Body weight 188.33 kg Enzo Coleman Work Phone: DV-Vqjnphzonwiydw[facility] 4100 Work Phone: 05-15-2023 11:49-0400 Body temperature 96.8 [degF] Dominick Barbosa MD Work Phone: [facility] 05-15-2023 11:49-0400 Diastolic blood pressure 91 mm[Hg] Dominick Barbosa MD Work Phone: [facility] 05-15-2023 11:49-0400 Heart rate 82 /min Dominick Barbosa MD Work Phone: [facility] 05-15-2023 11:49-0400 Respiratory rate 16 /min Dominick Barbosa MD Work Phone: [facility] 05-15-2023 11:49-0400 Systolic blood pressure 139 mm[Hg] Dominick Barbosa MD Work Phone: [facility] 05-15-2023 11:18-0400 Body height 182.8 cm Dominick Barbosa MD Work Phone: [facility] 05-15-2023 11:18-0400 Body mass index (BMI) [Ratio] 55.39 kg/m2 Dominick Barbosa MD Work Phone: [facility] 05-15-2023 11:18-0400 Body weight 185.1 kg Dominick Barbosa MD Work Phone: [facility] 03-18-2023 13:56-0400 Body height 182.88 cm Enzo Coleman Work Phone: PK-Gdfueqyjeuaepl-Xh [place] Work Phone: 03-18-2023 13:56-0400 Body mass index (BMI) [Ratio] 56.63 kg/m2 Enzo Coleman Work Phone: GX-Dyopwmkmaisiab-Me [place] Work Phone: 03-18-2023 13:56-0400 Body surface area Derived from formula 2.91 m2 Enzo E Ball Work Phone: FI-Amribsbosevyfd-Ku [place] Work Phone: 03-18-2023 13:56-0400 Body weight 189.41 kg Enzo E Ball Work Phone: CP-Qdwoypglsrfqtl-Qm [place] Work Phone: 03-18-2023 13:56-0400 0 1 Enzo E Ball Work Phone: IA-Qjvxqisceltnzj-Sd [place] Work Phone: Comment on above: [employer] 11-12-2022 16:13-0500 Body height 182.88 cm Enzo E Ball Work Phone: AP-Hlkuyqashbdtjk-Sl [place] Work Phone: 11-12-2022 16:13-0500 Body mass index (BMI) [Ratio] 56.89 kg/m2 Enzo E Ball Work Phone: SZ-Nbhbnfjfmreqkk-Gp [place] Work Phone: 11-12-2022 16:13-0500 Body surface area Derived from formula 2.92 m2 Enzo E Ball Work Phone: GO-Olfzwcouftdifw-Np [place] Work Phone: 11-12-2022 16:13-0500 Body weight 190.29 kg Enzo E Ball Work Phone: MF-Qgbuybcyvugvko-Av [place] Work Phone: 11-12-2022 16:13-0500 0 1 Enzo E Ball Work Phone: PW-Cccaukvivxxpbs-Zw [place] Work Phone: Comment on above: [employer] Encounters Encounter Date Encounter Type Care Provider Facility Start: 05-23-2025 End: 05-23-2025 ambulatory Enzo Ball DO Work Phone: [facility] Work Phone: Start: 05-23-2025 End: 05-23-2025 Patient encounter procedure Enzo Coleman -[facility] Work Phone: Start: 05-23-2025 End: 05-23-2025 [facility] Start: 02-13-2025 End: 02-13-2025 Office outpatient visit 15 minutes Dominick Barbosa MD Work Phone: [facility] Comment on above: 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); Chronic sphenoidal sinusitis Start: 02-13-2025 End: 02-13-2025 ambulatory DOMINICK Mandel [facility] Start: 02-13-2025 End: 02-13-2025 ambulatory Ruth Pfeiffer MD Facility:[facility] Start: 01-16-2025 End: 01-16-2025 ambulatory [facility] Work Phone: Start: 01-16-2025 End: 01-16-2025 Patient encounter procedure [facility] Work Phone: Start: 01-16-2025 End: 01-16-2025 ambulatory Ruth Pfeiffer MD Facility:[facility] Start: 01-11-2025 End: 01-11-2025 Office outpatient visit 15 minutes Dominick Barbosa MD Work Phone: [facility] Comment on above: 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); Chronic sphenoidal sinusitis; Chronic maxillary sinusitis Start: 01-11-2025 End: 01-11-2025 ambulatory DOMINICK Mandel [facility] Start: 01-02-2025 End: 01-02-2025 ambulatory Ruth Pfeiffer MD Facility:[facility] Start: 09-12-2024 End: 09-12-2024 ambulatory Ruth Pfeiffer MD Facility:[facility] Start: 08-08-2024 End: 08-08-2024 ambulatory [facility] Work Phone: Start: 08-08-2024 End: 08-08-2024 Patient encounter procedure [facility] Work Phone: Start: 07-13-2024 End: 07-13-2024 Office outpatient visit 15 minutes Dominick Barbosa MD Work Phone: [facility] Comment on above: Post-nasal drainage (Primary Dx); Chronic maxillary sinusitis; Nasal congestion Start: 07-13-2024 End: 07-13-2024 ambulatory [facility] Start: 07-04-2024 End: 07-04-2024 ambulatory Ruth Pfeiffer MD Facility:[facility] Start: 06-08-2024 Non-patient / Non-visit [facility] [employer] Work Phone: Start: 06-03-2024 Patient encounter status [facility] Start: 06-03-2024 End: 06-03-2024 ambulatory [facility] Work Phone: Start: 06-03-2024 End: 06-03-2024 Encounter for general adult medical examination without abnormal findings [facility] Start: 06-03-2024 End: 06-03-2024 Patient encounter procedure [facility] Work Phone: Start: 03-09-2024 End: 03-09-2024 ambulatory [facility] Start: 03-09-2024 End: 03-09-2024 Office outpatient visit 15 minutes Dominick Barbosa MD Work Phone: [facility] Comment on above: Chronic ethmoidal si nusitis (Primary Dx); Chronic maxillary sinusitis Start: 10-06-2023 End: 10-06-2023 ambulatory Enzo Curious [employer] Other [employer] Other Start: 10-06-2023 Office outpatient vi sit 15 minutes Enzo Coleman [facility] Start: 09-02-2023 End: 09-02-2023 Office outpatient visit 15 minutes Dominick Barbosa MD Work Phone: [facility] Comment on above: Chronic ethmoidal si nusitis (Primary Dx); Other chronic sinusitis; Chronic sphenoidal sinusitis Start: 06-07-2023 Chart Update Enzo morales Work Phone: [facility]cd[facility]adtrxfp[facility] Work Phone: Start: 05-27-[address] Dominick Cerda Facility:[id number] Start: 05-20-2023 Postop follow up vis it related to original px Enzo Coleman Work Phone: [facility]udugdgvzwegl[facility] 0602 Work Phone: Start: 05-20-[address] Enzo Coleman Facility:[id number] Start: 05-15-2023 End: 05-15-[address] Dominick Barbosa Facility:[facility] Start: 05-15-2023 AUDIT Enzo morales Work Phone: [facility] 4458 Work Phone: Start: 05-15-2023 End: 05-15-2023 Subsequent hospital visit by physician Dominick Barbosa MD Work Phone: [facility] Comment on above: Chronic ethmoidal si nusitis; Benign neoplasm of middle ear, nasal cavity and accessory sinuses; Chronic sinusitis, unspecified Start: 05-12-[address] Dominick Cerda Facility:[facility] Start: 05-12-2023 Encounter for preprocedural laboratory examination Dr. Dominick Barbosa [facility] Start: 03-18-2023 Office outpatient vi sit 15 minutes Enzo Coleman Work Phone: JI[facility]Vtqqqtwrdhvdza-[facility] 6652 Work Phone: Start: 03-18-2023 Patient encounter procedure Enzo Coleman Work Phone: JW-Djmemxuquzlvsc-[place] Work Phone: Start: 03-18-[address] Dominick Cerda Facility:[id number] Start: 01-07-2023 End: 01-07-2023 ambulatory Enzo Coleman Other [employer] Other Start: 01-07-2023 Telephone encounter Enzo Coleman [facility] Start: 01-06-2023 Office outpatient vi sit 25 minutes Enzo Seg[place] Work Phone: QN[facility]ofbwkzbfggoe[facility] 4101 Work Phone: Start: 01-06-[address] Dominick Cerda Facility:[id number] Start: 01-05-2023 End: 01-05-2023 ambulatory Enzo Coleman Other [employer] Other Start: 01-05-2023 Office outpatient vi sit 15 minutes Enzo Coleman [facility] Start: 11-19-2022 End: 11-20-[address] DOCTOR PARISI Facility:H1 Start: 11-12-2022 Office outpatient vi sit 25 minutes Enzo Coleman Work Phone: [facility] 4100 Work Phone: Start: 11-12-2022 Patient encounter procedure Enzo Coleman Work Phone: DX-Alqfeqilaruszh-Vy[place] Work Phone: Start: 11-12-[address] Dominick Cerda Facility:[id number] Start: 07-29-2022 End: 08-23-[address] ENZO COLEMAN Facility:H1 Start: 07-22-2022 End: 07-23-[address] ENZO COLEMAN Facility:H1 Start: 06-24-2022 Well child visit Enzo Coleman Other [employer] Other Start: 03-20-2022 End: 04-25-[address] [...] 2) Zoste r Vaccines (1 of 2) [facility] Start: 01-17-2026 End: 01-17-2026 Patient encounter procedure 01/17/2026 3:15 PM EDT Office Visit [facility] [address] [place] [address] Dominick Barbosa MD [address] [place] [address] [facility] Start: 06-05-2025 Influenza vaccination Influenz a Vaccine (Season Ended) [facility] Start: 01-11-2025 End: 01-11-2025 Patient encounter procedure 01/11/2025 3:00 PM EDT Office Visit [facility] [address] [place] [address] Dominick Barbosa MD [address] [place] [address] [facility] Start: 07-13-2024 End: 07-13-2024 Patient encounter procedure 07/13/2024 1:15 PM EDT Office Visit [facility] [address] [place] [address] Dominick Barbosa MD [address] [place] [address] [facility] Start: 06-05-2024 COVID-19 Vaccine () COVID-19 Vaccine () [facility] Start: 06-05-2024 Influenza vaccination [facility] Start: 03-09-2024 End: 03-09-2024 Patient encounter procedure 03/09/2024 2:45 PM EDT Office Visit [facility] [address] [place] [phone] Dominick Barbosa MD [address] [place] [address] [facility] Start: 09-02-2023 FUV, Provider: Dominick Barbosa, Status: Pen, Time: 2:45 PM FUV, Provider: Dominick Barbosa, Status: Pen, Time: 2:45 PM GC-Tqhvxmwicftkbs-[facility]li[facility] 4100 Work Phone: Start: 09-02-2023 End: 09-02-2023 Patient encounter procedure 09/02/2023 2:45 PM EST Office Visit [facility] [address] [place] [phone] Dominick Barbosa MD [address] [place] [address] [facility] Start: 06-05-2023 COVID-19 Vaccine ( season) COVID-19 Vaccine ( season) [facility] Start: 06-05-2023 Influenza vaccination Influenz a Vaccine (#1) [facility] Start: 05-27-2023 POV, Provider: Dominick Barbosa, Status: Pen, Time: 10:30 AM POV, Provider: Dominick Barbosa, Status: Pen, Time: 10:30 AM XG-Ivymjlppadqmdr-[place]is [place] Work Phone: Start: 05-20-2023 POV, Provider: Dominick Barbosa, Status: Pen, Time: 12:30 PM POV, Provider: Dominick Barbosa, Status: Pen, Time: 12:30 PM AT-Zxlrzsbolxeqws-Yzmb [place] Work Phone: Start: 12-22-2022 DTaP/Tdap/Td Vaccine s (7 - Td or Tdap) DTaP/Tdap/Td Vaccines (7 - Td or Tdap) [facility] Start: 2022 DTaP/Tdap/Td Vaccine s (1 - Tdap) DTaP/Tdap/Td Vaccines (1 - Tdap) [facility] Start: 03-07-2021 COVID-19 Vaccine (2 - Booster for Isaias series) COVID-19 Vaccine (2 - Booster for Isaias series) [facility] Start: 2018 Hepatitis C screening Hepatitis C Pa hunter [facility] Start: 2015 HPV Vaccines (1 - Ma le 3-dose series) HPV Vaccines (1 - Male 3-dose series) [facility] Start: 2011 HPV Vaccines (1 - Ma le 2-dose series) HPV Vaccines (1 - Male 2-dose series) [facility] Start: 11-28-2004 Varicella vaccination Varicell a Vaccines (2 of 2 - 2-dose childhood series) [facility] Start: 2001 MMR Vaccines (1 of 1 - Standard series) MMR Vaccines (1 of 1 - Standard series) [facility] Start: 2001 Varicella vaccination Varicell a Vaccines (1 of 2 - 2-dose childhood series) [facility] Start: 03-23-2001 COVID-19 Vaccine (#1) COVID-19 Vacci ne (#1) [facility] Start: 2000 Hepatitis B Vaccines (1 of 3 - 3-dose series) Hepatitis B Vaccines (1 of 3 - 3-dose series) [facility] Start: 2000 HIV screening HIV Screening [facility] Start: 2000 Lipid panel Lipid Panel [facility] Start: 2000 Yearly Adult Physical Yearly Adult P hysical [facility] Comprehensive metabo lic 1999 panel - Serum or Plasma [facility] Comprehensive metabo lic 1999 panel - Serum or Plasma [facility] Patient Education Low back pain in adults [facility] Work Phone: [facility] Immunizations Immunization Date Immunization Notes Care Provider Fa cilinoe 09-23-2001 varicella virus vaccine Dominick Barbosa MD Work Phone: [facility] Work Phone: Payers Date Payer Category Payer [employer] [facility] Member Subscriber Plan / Payer (Effective 2022-Present) Name: Wale Mi Member ID: [id number] Relation to Subscriber: Child Name: CHALINO LAWSON Subscriber ID: [id number] Date of : 1968 (Home) Address: [address] [place] [address] [place] [address] Payer ID: [id number] (NAIC) Type: Not on file Address: [address] [address] [place] [address] [id number] 2022 Unknown 2022 Unknown [id number] 2019 Unknown [id number] 2000 Unknown [id number] 2.16.840.1.697954.3.579.2. 593 2000 Unknown [id number] 2.16.840.1.988861.3.579.2. 593 2000 Unknown [id number] 2.16.840.1.231155.3.579.2. 593 2000 Unknown [id number] 2.16.840.1.712507.3.579.2. 593 2000 Unknown [id number] 2.16.840.1.409187.3.579.2. 593 2000 Unknown [id number] 2.16.840.1.956076.3.579.2. 356 2000 Unknown [id number] 2.16.840.1.677418.3.579.2. 356 2000 Unknown [id number] 2.16.840.1.951702.3.579.2. 356 2000 Unknown [id number] 2.16.840.1.149244.3.579.2. 356 2000 Unknown [id number] 2.16.840.1.563347.3.579.2. 356 2000 Unknown [id number] 2.16.840.1.144245.3.579.2. 356 2000 Unknown [id number] 2.16.840.1.884931.3.579.2. 356 2000 Unknown [id number] 2.16.840.1.690115.3.579.2. 1244 2000 Unknown [id number] 2.16.840.1.839497.3.579.2. 1244 2000 Unknown [id number] 2.16.840.1.180219.3.579.2. 1244 2000 Unknown [id number] 2.16.840.1.962385.3.579.2. 1244 2000 Unknown [id number] 2.16.840.1.894171.3.579.2. 196 2000 Unknown [id number] 2.16.840.1.319475.3.579.2. 196 2000 Unknown [id number] 2.16.840.1.520913.3.579.2. 196 2000 Unknown [id number] 2.16.840.1.030132.3.579.2. 196 2000 Unknown [id number] 2.16.840.1.139320.3.579.2. 196 Self-pay Social History Date Type Detail Facility Start: 09-02-2023 End: 01-11-2025 Never a smoker Never a smoker NP-Tnfulvrgszpksp-No stla ke Work Phone: Start: 09-02-2023 End: 01-11-2025 Sex Assigned At [employer] Other Tobacco smoking status CAIS Tobacco smoking consumption unknown [facility] Work Phone: Start: 2000 [facility] Work Phone: Start: 09-02-2023 Tobacco smoking status CAIS Never smoked tobacco [facility] Work Phone: Start: 09-02-2023 Tobacco use and exposure Smokeless tobacco non-user [facility] Work Phone: Start: 08-23-2023 End: 01-11-2025 Exposure to SARS-CoV-2 (event) Not sure [facility] Start: 2000 Sex Assigned At Male [facility] Start: 01-16-2025 Sex Male (finding) [facility] Functional Status Date Assessment Result Facility 01-11-2025 Patient Health [facility] ionnaire 2 item (PHQ-2) [Reported] [facility] Work Phone: Clinical Notes 09-04-2020 to 05-05-2025 Note Date & Type Note Facility 05-05-2025 Evaluation note Diagnosis Onset Date Resolution Hypertension acute May 23, 2025 2:56pm IFG (impaired fasting glucose) acute May 23 2:56pm Low back pain acute May 2:56pm Obesity acute May 23 025 2:56pm Wellness examination acute Augu 2024 2:56pm [facility] Work Phone: 1(290) 313-407405-12-2025 History of Present illness Narrative* Dominick Barbosa [...] 180 g, Rfl: 3 documented in this [facility] Work Phone: 1(923) 350-413904-14-2025 Evaluation note* Diagnosis Onset Date Resolution Status Admit Date Hypertension acute January 16, 2025 3:19pm IFG (impaired fasting glucose) acute January 16, 2025 3:19pm Low back pain acute January 16, 2025 3:19pm Obesity acute January 16 3:19pm [facility] Work Phone: 1(350) 412-864804-09-2025 History of Present illness Narrative* Dominick Barbosa [...] procedure below.) SINONASAL ENDOSCOPY WITH BIOPSY (CPT 74020-M): Due to the patient's nasal cavity / [...] Signature: Dominick Barbosa MD documented in this [facility] Work Phone: 1(709) 467-164110-09-2024 History of Present illness Narrative* Dominick Barbosa [...] procedure below.) SINONASAL ENDOSCOPY WITH BIOPSY (CPT 62755-U): Due to the patient's nasal cavity / [...] Signature: Dominick Barbosa MD documented in this [facility] Work Phone: 1(151) 868-470206-05-2024 History of Present illness Narrative* Dominick Barbosa [...] (Please see procedure below.) SINONASAL ENDOSCOPY (CPT 27538): To better evaluate the patient's symptoms, sinonasal [...] of Agustina Barbosa MD. documented [facility]: 1(621) 778-953601-02-2024 Evaluation note* Encounter Date Diagnosis Assessment Notes [...] index [BMI] 50.0-59.9, adult (ICD-10 - Z68.43) [facility] Other 11-29-2023 History of Present illness Narrative* [...] (Please see procedure below.) SINONASAL ENDOSCOPY (CPT 07639): To better evaluate the patient's symptoms, sinonasal [...] free to contact my office by calling [phone] with any questions. Signature: Scribe Attestation By signing my name below, I, Reina Irvin , Scribe attest that this documentation has been prepared under the direction and in the presence of Agustina Barbosa MD. documented in this [facility] Work Phone: 1(684) 615-688108-11-2023 NotePost Operative Note: PreOp Diagnosis: Right sinonasal inverted papilloma, chronic sinusitis Post-Procedure Diagnosis: Same Procedure: 1. Right nasal endoscopy with total ethmoidectomy including sphenoidotomy with tissue removal CPT 83362-M-21 2. Right nasal endoscopy with frontal sinusotomy CPT 47945-T 3. Right maxillary endoscopy with tissue removal 45474-S 4. Extracranial CT image guidance CPT 83795 Surgeon: Familia Resident/Fellow/Other Unit Director: None Anesthesia: GET Estimated Blood Loss [...] resected (more content not included)...[facility] 05-15-2023 Miscellaneous Notes* Op Note - Dominick Barbosa MD - 05/15/2023 4:37 PM EDT Post Operative Note: PreOp Diagnosis: Right sinonasal inverted papilloma, chronic sinusitis Post-Procedure Diagnosis: Same Procedure: 1. Right nasal endoscopy with total ethmoidectomy including sphenoidotomy with tissue removal CPT 61181-Q-12 2. Right nasal endoscopy with frontal sinusotomy CPT 72008-H 3. Right maxillary endoscopy with tissue removal 19962-G 4. Extracranial CT image guidance CPT 25886 Surgeon: Familia Resident/Fellow/Other Unit Director: None Anesthesia: GET Estimated Blood Loss [...] 17:00 by Dominick Barbosa) documented in this [facility] Work Phone: 1(834) 297-116508-11-2023 Note* Op Note - Dominick Barbosa MD - 05/15/2023 4:37 PM EDT Post Operative Note: PreOp Diagnosis: Right sinonasal inverted papilloma, chronic sinusitis Post-Procedure Diagnosis: Same Procedure: 1. Right nasal endoscopy with total ethmoidectomy including sphenoidotomy with tissue removal CPT 90911-W-75 2. Right nasal endoscopy with frontal sinusotomy CPT 08871-W 3. Right maxillary endoscopy with tissue removal 93010-W 4. Extracranial CT image guidance CPT 87536 Surgeon: Familia Resident/Fellow/Other Unit Director: None Anesthesia: GET Estimated Blood Loss [...] Last Updated: 15-May-2023 17:00 by Dominick Barbosa) [facility] Work Phone: 1(912) 767-139308-11-2023 History of Present illness Narrative* Wale presents for his first postoperative visit following right-sided sinus surgery in 05/15/23. * Following his surgery he has done well. He has been having some headaches that are controlled with Tylenol. His breathing has been significantly improved. He is rinsing several times per day. He denies significant nasal drainage. LF[facility]pn[facility]fem[facility] [address] Work Phone: 1(544) 728-394108-11-2023 NoteHistory of Present Illness: History Present Illness: [...] 15-May-2023 11:51 by Dominick Barbosa)[facility]08-11-2023 History and physical note* Dominick [...] Last Updated: 15-May-2023 11:51 by Dominick Barbosa) [facility] Work Phone: 1(661) 522-411808-11-2023 History and physical note* Dominick Barbosa MD [...] 11:51 by Dominick Barbosa) [facility] Phone: 1(391) 605-414504-05-2023 Evaluation note* Encounter Date Diagnosis Assessment Notes Treatment Notes Treatment Clinical Notes Jan, 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 Obstructive sleep apnea on positive pressure YE-Axqawttieotcii-Xsqpdjw [facility] [address] Work Phone: [phone] 746-201904-04-2023 History of Present illness Narrative* Reason for visit: * WALE [place] patient presents since last being seen 01/06/23. * Wale presents for routine follow-up. He is interested in going forward with his inverted papillomaresection and would like to schedule it as soon as there is availability. [facility] Work Phone: 1([phone]) 625-519104-04-2023 History of Present illness Narrative* Reason for visit: * WALE MI patient presents since last being seen 01/06/23. * Wale presents for routine follow-up. 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 [facility] [address] Work Phone: [phone]) 168-897504-03-2023 Evaluation note* Encounter Date Diagnosis Assessment Notes [...] for congestion, Tylenol for pain and fever. [facility] Other 12-01-2020 History of Present illness Narrative* [...] and is using flonase only as needed. [facility] Work Phone: 1(112) 447-488912-01-2020 History of Present illness Narrative* Reason for [...] well outside of some nasal breathing issues. AK[facility]glsynhsvpahmr[facility]xgg[facility] 4[facility] Work Phone: Evaluation note* Diagnosis Chronic ethmoidal sinusitis Benign neoplasm of middle ear, nasal cavity and accessory sinuses Benign neoplasm of nasal cavities, middle ear, and accessory sinuses Chronic sinusitis, unspecified documented in this encounter [facility] Work Phone: Evaluation note* Diagnosis Chronic ethmoidal sinusitis- Primary Other chronic sinusitis Chronic sphenoidal sinusitis documented in this encounter [facility] Work Phone: Evaluation note* Diagnosis Chronic ethmoidal sinusitis- Primary Chronic maxillary sinusitis documented in this encounter [facility] Work Phone: Evaluation note* Diagnosis Onset Date Resolution Status Bulging lumbar disc acute Elevated BP without diagnosis of hypertension acute Low back pain acute Obesity acute Wellness examination acute [facility] Work Phone: Evaluation note* Diagnosis Post-nasal drainage- Primary Other diseases of nasal cavity and sinuses Chronic maxillary sinusitis Nasal congestion Other diseases of nasal cavity and sinuses documented in this encounter [facility] Work Phone: Evaluation note* Diagnosis Onset Date Resolution Status Bulging lumbar disc acute Elevated BP without diagnosis of hypertension acute Low back pain acute Obesity acute Wellness examination acute IFG (impaired fasting glucose) acute Acute sinusitis noneactive [facility] Work Phone: Evaluation note* Diagnosis 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, middle ear, and accessory sinuses Chronic sphenoidal sinusitis Chronic maxillary sinusitis documented in this encounter [facility] Work Phone: Evaluation note* Diagnosis 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, middle ear, and accessory sinuses Chronic sphenoidal sinusitis documented in this encounter [facility] Work Phone: History general Narrative - [...] ethmoidectomy 08/25/2019 Hospitalization History see surgical history [facility] Other History of Present illness Narrative* Wale [...] 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 RV-Ahctmqipjmlgbs-[facility]jcpwmuP[facility] 4100 Work Phone: Reason for referral (narrative)No reason for referral information [facility]Upper [facility] Work Phone: Summary Purpose Family [...] Complaint and Reason for Visit Chief Complaint [facility] Reason for Visit Bulging lumbar disc Elevated BP without diagnosis of hypertension Low back pain Obesity Wellness examination Chief Complaint [facility] [phone] sinus infection Reason for Visit Bulging lumbar [...] and content) DATE CREATED AUTHOR 03/06/2020 Wayne Manati [facility] DATE CREATED AUTHOR AUTHOR'S ORGANIZ ATION 11/24/2022 [facility] DATE CREATED AUTHOR AUTHOR'S ORGANIZ ATION 05/28/2023 [employer] DATE CREATED AUTHOR AUTHOR'S ORGANIZ ATION 06/05/2023 [facility] DATE CREATED AUTHOR AUTHOR'S ORGANIZ ATION 02/14/2025 [facility] DATE CREATED AUTHOR AUTHOR'S ORGANIZ ATION 03/01/[address] [facility] REASON FOR VISIT (unrecogniz ed section and content) Reason Comments Other Right endoscopic sin us surgery with image guidance, right endoscopic medial maxillectomy, septoplasty Reason Comments Follow-up Care Teams (unrecognized sec tion and content) Brush Head Maker Relationship Specialty Start Date End Date Enzo Coleman DO PCP - General 09/21/19 Brush Head Maker Relationship Specialty Start Date End Date Enzo Coleman DO PCP - General 09/21/19 Brush Head Maker Relationship Specialty Start Date End Date Enzo Coleman DO PCP - General 09/21/19 Cristiana Triplett, AMBULATORY NURSE-RECORDER HELPER [employer] [address] [place] [address] PCP Dmitry MILLERO PCP 09/04/23 Team Status: Active Member Role Status Dates Enzo Coleman DO Primary Care Provider Active Team Status: Inactive Member Role Status Dates Enzo Coleman DO Primary Care Provide r, Attending Provider Active Start: June 03, 2024 End: June 03, 2024 Brush Head Maker Relationship Specialty Start Date End Date [place] [...] January 16, 2025 End: January 16, 2025 Brush Head Maker Relationship Specialty Start Date End Date Enzo [...] BE BASED ON THE PRIMARY CLINICAL RECORDS. [employer] [facility]. provides no warranty or guarantee of the accuracy or completeness of information in this document.
== END 2025-06-15 13:12 | disposition home or self-care (01) ==
PROVIDERS: Family Provider Internal Medicine; PCP Internal Medicine; Visit Provider Nurse Practitioner
DX: M47.26 Other spondylosis with radiculopathy, lumbar region (principal); M48.062 Spinal stenosis, lumbar region with neurogenic claudication; M79.10 Myalgia, unspecified site; M51.26 Other intervertebral disc displacement, lumbar region
CPT/HCPCS: 72114; G0463

== ENCOUNTER 2025-07-10 08:30 | Day surgery (SDC) | payer BC, SELFPAY ==
--- OUTSIDE RECORDS SUMMARY | 2025-07-10 08:33 | XMS_ITS | Encounter Summary ---
Author Organization [facility] Address [address] [place] [address] Phone Care Team Providers Care Fixture Builder Name Role Phone Enzo Vasques DO Primary Care Provider [phone] Cristiana Triplett HIDE AND SKIN COLERER-BUTCHER ALL ROUND Unavailable Encounter Details Date Type Department Care Team (Late st Contact Info) Description 11/07/2023 Patient Risk Score [facility] Care Management [address] [place] [address] Social History Tobacco Use Types [...] Office Visit [facility] [address] [place] [address] Dominick Barbosa MD [address] [facility] [address] [place], [place] [id number] 01/17/2026 3:15 PM EDT Office Visit [facility] [address] [place] [address] Dominick Barbosa MD [address] [facility] [address] [place] [address] documented as of this encounter Visit Diagnoses Not on filedocumented in this encounter Additional Health Concerns Assessment Noted Time A fall risk assessment has been complete d for the patient 09/02/2023 3:31 PM EST documented as of this encounter Care Teams Fixture Builder Relationship Specialty Start Date End Date Enzo Vasques DO PCP - General 09/21/19 Cristiana Triplett APRN-BUTCHER ALL ROUND [address] [place] [address] PCP - Cyndie ENCISO PCP 09/04/23 01/03/24 documented as of this encounter
--- OUTSIDE RECORDS SUMMARY | 2025-07-10 08:33 | XMS_ITS | Encounter Summary ---
Author Organization [facility] Address [address] [place] [address] Phone Care Team Providers Care Media Developer Name Role Phone Enzo Vasques DO Primary Care Provider [phone] Cristiana Triplett CIRCULAR SAW EDGE FUSER-INDEPENDENT FREIGHT AGENT Unavailable Encounter Details Date Type Department Care Team (Late st Contact Info) Description 12/07/2023 Patient Risk Score [facility] Care Management [address] [place] [address] Social History Tobacco Use Types [...] Description 07/12/2025 3:00 PM EDT Office Visit [facility] [address] [place] [address] Dominick Barbosa MD [address] [facility] [address] [place], [place] [id number] 01/17/2026 3:15 PM EDT Office Visit [facility] [address] [place] [address] Dominick Barbosa MD [address] [facility] [address] [place] [address] documented as of this encounter Visit Diagnoses Not on filedocumented in this encounter Additional Health Concerns Assessment Noted Time A fall risk assessment has been complete d for the patient 09/02/2023 3:31 PM EST documented as of this encounter Care Teams Media Developer Relationship Specialty Start Date End Date Enzo Vasques DO PCP - General 09/21/19 Cristiana Triplett APRN-INDEPENDENT FREIGHT AGENT [address] [place] [address] PCP - Cyndie ENICSO PCP 09/04/23 01/03/24 documented as of this encounter
--- OUTSIDE RECORDS SUMMARY | 2025-07-10 08:33 | XMS_ITS | Encounter Summary ---
Author Organization [facility] Address [address] [place] [address] Phone Care Team Providers Care Post Splitter Name Role Phone Enzo Vasques DO Primary Care Provider [phone] Cristiana Triplett LANDING WORKER-MAIL WEIGHER Unavailable Encounter Details Date Type Department Care Team (Late st Contact Info) Description 05/15/2023 Scanned Document [facility] [address] [place] [address] Conversion, Onbase Social History Tobacco Use Types Packs/Day Years Used Date Smoking Tobacco: Never Assessed Sex and Gender Information Value Date Recorded Sex Assigned at Not on file Legal Sex Male 8:12 PM EST Gender Identity Not on file Sexual Orientation Not on file documented as of this encounter Functional Status * BP Answer Date of Assessment Author 139/91 05/15/2023 11:49 AM EDT Conversi on, [employer] [place] [facility] * Pulse Answer Date of Assessment Author 82 05/15/2023 11:49 AM EDT Conversi on, [employer] [place] [facility] documented as of this encounter Plan of Treatment Upcoming Encounters Date Type Department Care Team (Late st Contact Info) Description 07/12/2025 3:00 PM EDT Office Visit [facility] [address] [place] [address] Dominick Barbosa MD [address] [facility] [address] [place] [address] 01/17/2026 3:15 PM EDT Office Visit [facility] [address] [place] [address] Dominick Barbosa MD [address] [facility] [address] [place] [address] documented as of this encounter Procedures Procedure Name Priority Date/Time Associated Diagnosis Comments SURGICAL PATHOLOGY EXAM 05/15/2023 documented in this encounter Results * SURGICAL PATHOLOGY EXAM (05/15/2023) Narrative 05/15/2023 Ordered by an unspecified provider. us Onbase Conversion LAB PATHOLOGY ORDERABLES Final Result documented in this encounter Visit Diagnoses Not on filedocumented in this encounter Care Teams Post Splitter Relationship Specialty Start Date End Date Enzo Vasques DO PCP - General 09/21/19 Cristiana Triplett, LANDING WORKER-MAIL WEIGHER [address] [place] [address] PCP - Cyndie ENCISO PCP 09/04/23 01/03/24 documented as of this encounter
--- OUTSIDE RECORDS SUMMARY | 2025-07-10 08:34 | XMS_ITS | Encounter Summary ---
Author Organization [facility] Address [address] [place] [address] Phone Care Team Providers Care Peoplesoft Financials Name Role Phone Enzo Vasques DO Primary Care Provider [phone] Encounter Details Date Type Department Care Team (Late st Contact Info) Description 01/07/2024 Patient Risk Score [facility] Care Management [address] [place] [address] Social History Tobacco Use Types [...] Description 07/12/2025 3:00 PM EDT Office Visit [facility] [address] [place] [address] Dominick Barbosa MD [address] [place] [address] 01/17/2026 3:15 PM EDT Office Visit [facility] [address] [place] [address] Dominick Barbosa MD [address] [place] [id number] documented as of this encounter Visit Diagnoses Not on filedocumented in this encounter Additional Health Concerns Assessment Noted Time A fall risk assessment has been complete d for the patient 09/02/2023 3:31 PM EST documented as of this encounter Care Teams [employer] Relationship Specialty Start Date End Date Enzo Vasques DO PCP - General 09/21/19 documented as of this encounter
--- OUTSIDE RECORDS SUMMARY | 2025-07-10 08:34 | XMS_ITS | Clinical Summary ---
Author Organization [facility] Address [address] [place] [address] Phone Care Team Providers Care Medical Legal Investigator Name Role Phone Enzo Vasques DO Primary Care Provider [phone] Allergies No known active allergies Medications mometasone [...] Description 07/12/2025 3:00 PM EDT Office Visit [facility] [address] [place] [address] Dominick Barbosa MD [address] [place] [address] 01/17/2026 3:15 PM EDT Office Visit [facility] [address] [place] [address] Dominick Barbosa MD [address] [place] [address] Health Maintenance Due Date Last Done Comments [...] patient's age to complete this topic Insurance [facility] Care Teams Medical Legal Investigator Relationship Specialty Start Date End Date Enzo Vasques DO PCP - General 09/21/19
--- OUTSIDE RECORDS SUMMARY | 2025-07-10 08:34 | XMS_ITS | Clinical Summary ---
Author Organization [facility] Address [address] [place] [address] Care Team Providers Care Card Reader Name Role Phone Unavailable Primary Care Provider [...]
--- OUTSIDE RECORDS SUMMARY | 2025-07-10 08:37 | XMS_ITS | CCD ---
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, Cristiana Jose Unavailable Enzo Coleman DO Primary [...] Unavailable Enzo Coleman DO Primary Care Provider [phone] Enzo Coleman DO Attending Provider [phone] Allergies Allergy Classification Reported Allergen(s) Allergy Type Date of Onset Reaction(s) Facility (8 sources) bee pollen Allergy to substance (finding) -Otolaryngolog [facility] Work Phone: (1 source) patient allergy list reviewed by nurse or physicia Propensity to adverse reactions 6 Comment:Done [facility] Other Medications Current Medications Medication Drug Class(es) [...] Facility Surgical pathology studyOrde red By: Claudio Ierland on 01-18-2025 Laboratory comment Pasquale (Report) x3pwgICeLWQia1znRGRbzFXrB zEwMzNcZnRuYmpcdWMxIHtccn JcQYnnp6QpD8NfSiQgKYhtvcA hARAsNhxlgfxzWIYnHOJ6zjDb OEKuDBtjONHzOSmpQu2saPBrf XcwNfGeGTFki6jczxEXWQbzGZ AEGWl1q9gtITTcQlB3oKQhQQv cJ9drbjJgaFJhK0Hnx4LhUGu4 jV15QMOxxP1lyVWiFQahycJlY qX4ROzuHZLpEoA2HLPzhTXlUS LbQ9lpUHFbZXqpOOOsIPyisTS hYZI9yEfcl8H0wHZeuWZvxQwa RmWmHmYzBxIQq8OiJVw8fJkgQ 5IhNNBoWsQ2gBPmMRCoEDtdAF PzDWClvbU7rC04KNjwmtB9gLW as1Wtp19qh074fL3arIFnVKE2 CJFnPCZdvUPqKLRdTOV1WVMqz LAkY1neUsLsaKGdC0KsFeClcV MuV2EaStYywSYnB0HbVxZixMW iDNQamWN8EUvfi630IMR1UcXm XJ3zB2Fit4E6hQ5zmKIhADKuc VYyXoCwUDAkjj6dbRViARzqt4 OhBPC7hlT3tHIbsFMxCEZqHS3 6Nqitu4CyCqzcTVE2QYWcylMo x9Hyb4kkDeYsnnIbD4hyR6CiS QBeIKKzXOSfLkYlryJhl3Vlo6 YrfZQpjRm6i5piOQFdHUZisQt kl0izNYB8TYKbV3N4dVZdd0sm IQoyEZKzvML1ekE3APmnOOXsi tT8hvK7STpbQGXosCI2uwG3RL jtECYdWvC7koF9ABtmRNRnJTT 7MoUwSNIru4IcbxygMwYef5La kZNdAWqpM50ha946RWWxbeJyF 1xwbGFpblxwbGFpblxmMFxmcz Y6EAFgRCDxKLwnBDHjBMFmKfR cbGFuZzEwMzNcaGljaFxmMVxk SiDaJXVqHJkqO7acKiJkWqImD NGCwXJ4jAIsm4luprU2rJAwHB 8uHGEpsWXngfUoy1M4HHB2gRS poH7wkMAtBHZqyZXjkoMsqo60 lLJqySO2NIZoHFBemKNlmG7oU AYqPUDCvC6ksVFVncJxhqWiZY UrtNywgg4EwOMcsx0ugMGgK7C ydGlmaWVzIHRoYXQgdGhleSBo NYPwZJJhdouzl0NdSXGzbUXnF 5QrNJ6eJIDhfb80 [facility] Work Phone: Pathology report Cancer Narrative Surgical Pathology Case: [id number] Authorizing Provider: Dominick Barbosa MD Collected: 01/11/20250 Ordering Location: [facility] Received: 01/11/2025 162 Pathologist: Claudio Ireland MD Specimen: SINUS MASS RIGHT [facility] Work Phone: Pathology report final diagnosis Narrative l5qkcQLlSSXloHVyYQWiCZznh xVaGUJdnUOmT3UavhrmNBybAE 6wZR5qjQckuZQbuZOzOJPiCgE cu7xvt198fRIdd1zvQMSWjdre iHm3jKkpR08da0W8NbejX7uvE MSpLKcvTEPaBHpgkDPoTWl5AY BhcGVydzEyMjQwXHBhcGVyaDE 1AKFhHT0ogtwkIZyeSUmaZXKj ewM5JGAcxTXqK5FuJMZeLS2hg zkeSME9ZVjwIQOrSDC6QvSxPK Mfa9Siryp7ZgRdeGg5w2sgBMS rXGZruOter8msSKD4SSIbsJUb A2uklK9aIHAxCT1npzotf6ssH MawJUuwLKMcdDB4coD5EJPhrC NrG3RelP4zVKDbXUHsggHggDl iiS7tMxZfHpcsWdMyIflwdHOp p7ptnQAxkORhzyvmxOGnNYSoK TBijCEeL8zid49jl6HcUAQmxE pjaW2iSQtblD29HUC7ISFtoMs pFKdthR66t6v3sE2aHZHxCCzu PtbleN1zfK6pfOZcuI3tzxZvZ SazjO8sxIOmRXEpjohongSvl3 hsDN2iCViaS9jwY2JbMBGsKGq mdLmel5yjCT5qITgbajFxvJSx VSOoiwHnxi1cOVAyPPWphFwqw PTmEyqiLBGpTI0vAWQkZKAZj5 D7eU6kQJ0fQNZynqZsf2x8dLO yqhDddPhhwDRoF6NfpCEpWYZt l8brE9zkRJKvtyIcucrlCgvxY WSwtHIoJXpfu3qdRUF9 [facility] Work Phone: Pathology report gross observation Narrative x6mszZYdFLKfbLCQVID8XROlQ H6ztTjavWk2vMalMKDubpW2fS HcHEacy6hgJJM7k7pjsoRMOlu tHMYqJE8jXTcdBHYvFL2nQlZq XGRlZmYxXHBhcGVydzEyMjQwX KJrrHGfzPT2UJFmAX6puvwnMI uzWNhrIKKoauM2EBGerWZdZ2W nHZPwZH6haamnGUQ5QXPAHguz Oe3lrKWskQWBOeffTpRpWtLmK WAfYLXmNBZfd6jsbsQINQpnBQ AMNNf1YEi7RUMaLRNhfVYpc5U 7KSldw5vny5UtBUClZDi7nK9K OppbODJ7MGXGFhvsZzqxeLjag 2VjdCBcXHNnIFxcaWQgNTEwMD MuZMpnNnUAIkXzCkOiLel5MJF 5YJSuVEz2IRoxOnBNURDkUGN7 CIKsPCn7KBeoVDuoqCEgXQLjP DVhWEIxNZuwcwP8x9hbMXOnwL EfFJY1GJfnf3bgEXwkUDT7EFG jJiQcEITgFI8TGoJiCUD9HPJ1 ZOo2LbA4MSk9ORUKQrTnZuAdW Ja0ZhJ4KwSdDSo2MFd1JSeHUb FrWYekDXk6SLY2DME3SzK3FKv vwhxeSDi3FGXpUGllmaEuNNst SsaeXOsfO67uxWHkDWECMxmyy GFpblxlcGljTmVzdERvYzEgDQ uadXKqrQQcLE1KGXq2twIsNRL oWNDkGhHtWyIwHVx4KJJclE7f Sh5qqYLxfD6mVRksUyIpBMUaq 8e0tRZ2cGQxmFZ1tQWzdVqpYI 6fxZTuQQ1dIPdhz1ZdiBNiKA1 2lCIeniWhpoPzRySuvyLzSU4w n0SxuctviEAgWDLmzeXyXITdz Yqom2ytBKZgK37phkGcm5FkmP ZtVLrzxXCvNPJfZwOoiIbed3Z uGG3iDGB4hzfbFkEaWdVzlIMm ImzgyQOlSkfyY37dPKWMyGNqv QAov0IuEXWhfCCwF9sjLD1fAZ Kda1XriEhihzMmpdXkcecmCEW nrIWlTAIeEWU9aOMyi4AnL3yz CJ6ljPPxUuzlHCA7HLNlLIWXm LEuv9SqJ8yiTI2zrEQiPW36cX LgfUnom3CoxEa9mDAjEUqsTE2 jZSAxRLZmDHP8WL2zrSEqIR2D HGQaSbIcJYBgU1gkYURlXL3GK 42QJEhnXZIuF89ht6CFc5Jcg0 mmkIsph7DkgHYdYG30VFFhuPS oVEN8JM6noHfoUCNgDNhbjNHm ZCANClxwbGFpbiANCn0= [facility] Work Phone: Pathology report relevant history Narrative d7rrtWEzBUDhj5gcWYFvjOHzR wAiHwRiZcTaZez4UNCicbN9Up b7WEIfNBrubQ6tAWGaMPcpU1n ursQzhFYbQBHfVDm3eG7qqKxa sA0bLcPcUiOhPWCYmDfirq8gQ QEzHXOyemZehELvm4hwMJPpwQ == [facility] Work Phone: [facility] Work Phone: Surgical pathology studyon 0 01-11-2025 Surgical pathology study Pathology report.total SEE COMMENT Surgical Pathology Case: [id number] Authorizing Provider: Dominick Barbosa MD Collected: 01/11/20251619 Ordering Location: [facility] Received: 01/11/2025 1620 Pathologist: Claudio Ireland [...] specimen is entirely submitted in one cassette. [facility] Surgical pathology studyOrde red By: Shakir Ford on 07-19-2024 Laboratory comment Pasquale (Report) h4ticMVcDENak9xbQBEvfTNtH zEwMzNcZnRuYmpcdWMxIHtccn LfEUpod7TnB6IkEyBtNYzyzmE uISOmLcczgrzzUOSwXZF4nxZz ZSPiKWmyIFXmYWehYa0xbOOzp KdrKqLcLYGqj2ltadUMRYlgRU MLKPk0b4ohEXLuMpK7wGTcPWx pW5japoWerGZvN1Cqo9GoSRq6 hY95GOYrcP8jdKNsPBrrzzCvN yS7WIlaMQSfZxS6DXSzzTHtPB VkX4olFAVrFImeZNErSRzcjBX zNBW9pWvll0N7bWYtsMAcwBbu NaUlFyUmWaANl0OlREj3kLwlB 7GzKVUsGpJ5cIGuQHDtZJyfWB XcVCYuohI7zI62NEmfpeW4jSG ms5Sed30ew264pH3cdHPoWJB4 SBDtTNJrwASpQBOsIUD7JGJdh TVsQ3uxWvDapEYnP1NeRtFerS TdG1LbTxBxuKYhD6JfArIbcGV yRDTmdKG3NHuux890FUJ2OiUg ML3mO3Wce3J4uC3poPNnEQNlm RKpBlBdPYVebl7gkAXtHQdrf3 BfEEE2aoH1mHDtgFKqUYEoOM0 1Zylvc5IvRyghZMW9CLAzhdYw o8Oov6fcAdPjbzSeD0dvC6DwB KDcGUNdBCYoYwZeqlQdw7Csf8 QogROftEv8f2faGCEqDCFdfDe cu3ncBGI5YOOcH4W0pSZxn7wi HNvpUPEouGE6guD5PGdjYLRzk fV9cqD5QKlbOKPuoXO0bhC5PF vdEOKeMqG8icA9AUccNASsELD 5RuNlOTKso5AqnmzxTpWpo0Mh zWQcFGcaD41po732HUFfjuTsN 1xwbGFpblxwbGFpblxmMFxmcz R5GHWxYWFsZBpuEIVyDRFsMjV cbGFuZzEwMzNcaGljaFxmMVxk UjRhARMlBKywM8iqFrXyRvVoR CIEtFF1vUCqp5umstR1bLLjYT 0wZBUjkLCcwgNzg3G0LWR7kDN iwD9fsQGlTYAvuHDgxhQgzn13 yQTshBF7ETIrLAAmbAZucU1gL MQtKLHLnD3daNRUffGaqlSaIF WilOmnio2BxJRafk7kpPRfL7A ydGlmaWVzIHRoYXQgdGhleSBo RLCvWVYnrrghx7XzJBKfiQAsB 9EjJP0xWRZmzx91 [facility] Work Phone: Pathology report Cancer Narrative Surgical Pathology Case: [id number] Authorizing Provider: Dominick Barbosa MD Collected: 07/13/2024 1405 Ordering Location: [facility] Received: 07/13/2024 1405 Pathologist: Shakir Ford DDS Specimen: NASAL MASS RIGHT BIOPSY [facility] Work Phone: Pathology report final diagnosis Narrative t7lbmOKcZVDwrEDmMPnrUzbbp iFfFZLcaGHnJ1DlsnmiHLdbGU 3xQU3khRiamHQwqSQbPCJlKbF je7zpw171jZVif9nfSYTJufbj pMk8iKptZ23ck0N7CkepT1csZ XAvGVqhSFIwXKznkUFlGYs6RA BhcGVydzEyMjQwXHBhcGVyaDE 0ISIhAH5eaaruDLyyFWhuNXDw pxE9OJOhlTAgY0FjFKYxLN5pw zpnUPG5HBonJOTqCMO5QrWjYR Fzb7Rfogj5DbCfcYe2i0cxSND qZJNmpHvfh6qkKZQ9FTGawGWr P5ohzQ6kFAPzLG2wkczgt3ukS YceQBywFUPodTU9tqW2OSXkzJ YgS4GyhG8aSOTcWCHaxpOjbTf ugZ6oWaAsMcdlYdGzCyJjYNyv B1Q8mEZ0GTEsnWjsuISaRETvV XGttY0oa3r3PMMchtthkzUpk7 uqAQXcrp5xRBWnuTDzeBByg9B kHS3cDTWlpn5hgNPgfX3jdRWm iEP9sJ5hPGcipQhtCDPecTM1a 8RzNOX5wu1yTOyfL04cz8rhxX IyaLH1kCKhQSXfgm6nIYEhyMH hgjRyQB9xWATerbsehB0vyVTw XHBhcn0= [facility] Work Phone: Pathology report gross observation Narrative a8xdtOQbWMYjeJZOEKC4WSTfB G6pkZnwnDl4tEpiVQFqjkL9dV KcWCiqd5lxDOQ9f6wmmrCTRfl jWIPiXB1lYRvvNPImJI4tEqEz XGRlZmYxXHBhcGVydzEyMjQwX NKbnWWfaZG2PRPsCG4hqitiGI ciWKyyCTFwjaJ6HJNlrBLuO7N zTOVaBP8eaejxIVY3LEYCCjss Fi8qnRTtjXCITwdfJhMgLjFbT NKaGZWdSQCbr9cvrdYECHctVZ XJOBu6VNo4NYQyIYMnvYByo9B 2SRljy7okv7UpXASmRPf9kP9R YsxzKIK0TZFAVttmCotyeRtzu 2VjdCBcXHNnIFxcaWQgNTEwMD ZwMKsyBpMUVbVeZcTlSYJ6JQa 6KbQqJVe3JEjeQuSTZLG8GAg3 OemqOYz1XApnBUkgqPFpBUXhS QNqWFHnFXajauM1e3puBNCdpX MgGQR9OQkni6muZUipTYH4PIF sWfPyDWFxCY9GYcKyIRD7BeH3 KhcdJwE3DUl1LHQCWgZoMrPbT OGtOwh4PYltIZi2MYv2JQfHKn GjGXZ7NrQcDXRlOPO2FXU1VQr etmzfWJq7PXEzZLwzvtWqYScv PcbhDUtbZ63yhDJgHOBWUbptr GFpblxlcGljTmVzdERvYzEgDQ lwzJQnaPAzZE4SZKp2nfBgJQE sPPQxEkMtVNbbTcMtDJs4SYBb tN7dFw7mpFVwvX4kNJmmAwOkD OOah7a4sZW1wIMjbOF3mYGmsN opZB3axGAaJY6mIMidu3CliEJ zXZ34cWKijkQhnmRjIo1ux3Nv KG7ap8AoPeeukTV3IQNcJ0p8L ngbFTOcZU88aVJlqTqlPKDssb SgY6OwHGAgx4JpjHIoqZSjt5G gdGFuLXdoaXRlIHNvZnQgdGlz l2XgYHJzY2MnA3A4hP1pGYFsR XSzMFN7RWEaVyT4OBCaJQRrkT 8kPOWlOVQcaFIfpB5ysyUhbpL zlTPhjBH6JPFmeG9exC70ecYr tcBubuVgD1Blw1C9pJVuJNMqu pAPIrpdNEZaQKItcRWHh5XaZU GNNcTNWf1WQDTxqLEWIDN8ZW6 jQMyuDRWoF3UzO1HncoW5u7fb cLfjt2QvtGUdKX4yeTPoII1NU URqhpBqVYbcjBhtkB0uFQq0 [facility] Work Phone: Pathology report relevant history Narrative a9nojFUgQXHnn7lcQQOutWYlO xYjPgMkAmEvDxq9CHSdzoO3Nd b1CHUlWHnkqB7jROQfXWrpR9t xbqTgjGOpNAXxJIm8gU3waVth pQ0pExXhUwZfURRlnMKvriadJ Q7jvYyhlKTqaYUnqX04u3b8yR NccGFyIH0= [facility] Work Phone: Resident Review r5xomQUqDTPjeEDxKQnv Mlxhb tFiSQVltXUoC6ZlhzarYVzbKH 8yFZ2awGgnjTHfqMMhXQGxOdP bh2rxe060aMZcj1hbYHZOeisz dNy3nNyaK25bx0N4TndcA77xi RYsHDN3INGfNXQofTXjSIAvMR O1NPYmmWJcE7ziNVMxGV0xwpd jHVblVBcrQTGbjHS4QQQhbRHn M5AzHYIjBDfqHJSrpfo9YfVlE k1onPLjiHijOEfbLKCcPNZiPI cxTJSiJtBmHYmmHLsuk1QkWSM yVC0cprGrjWFum4Sxp2ThAwFf qB6plE4ezgD6MXJxQMIylkdix 2SyXZqgMJYksaf9nnT2aR7mEA medHvxzBL6aP0ok0d2IHOki5y aYV81YHOBLB8jbUHxY1VscS8o MBFDFC0seKPgKSKkriAucKDgd Q== [facility] Work Phone: [facility] Work Phone: Surgical pathology studyon 1 Surgical pathology study Pathology report.total SEE COMMENT Surgical Pathology Case: [id number] Authorizing Provider: Dominick Barbosa MD Collected: 07/13/2024 140 Ordering Location: [facility] Received: 07/13/2024 1405 Pathologist: Shakir Ford [...] Basophils (Bld) [#/Vol] 0.1 10 3/uL 0.0-0.1 [facility] Basophils/100 WBC Auto (Bld) on 06-08-2024 Basophils/100 WBC (Bld) 1.2 % 0.2-2.0 [facility] Cholesterol in LDL Calc [Mas s/Vol]on 06-08-2024 Cholesterol in LDL [Mass/Vol] 66.0 mg/dL [facility] Comment on above: <100 mg/dl AJPTQRV33 0-129 mg/dl NEAR OR ABOVE DNVSMLY932-355 mg/dl BORDERLINE VDTI080-158 mg/dl HIGH>190 mg/dl VERY HIGH Cholesterol in VLDL Calc [Ma ss/Vol]on 06-08-2024 Cholesterol in VLDL [Mass/Vol] 43.0 mg/dL [facility] Eosinophils/100 WBC Auto (Bl d)on 06-08-2024 Eosinophils/100 WBC (Bld) 3.1 % 0.9-7.0 [facility] Erythrocyte distribution wid th Auto (RBC) [Ratio]on 06-08-2024 Erythrocyte distribution width (RBC) [Ratio] 13.0 % 11.0-15.0 [facility] Estimated glomerular filtrat ion rate (GFR) non- Americanon 06-08-2024 GFR/1.73 sq M.predicted among non-blacks MDRD (S/P/Bld) [Vol rate/Area] mL/min/{1.73_m2} >=60 [facility] Globulin Calc (S) [Mass/Vol] on 06-08-2024 Globulin (S) [Mass/Vol] 4.1 g/dL [facility] Glucose mean value [Mass/vol ume] in Blood Estimated from glycated hemoglobinon 06-08-2024 Average glucose Estimated from glycated hemoglobin (Bld) [Mass/Vol] 128 mg/dL [facility] Hematocrit Auto (Bld) [Volum e fraction]on 06-08-2024 Hematocrit (Bld) [Volume fraction] 45.3 % 42.0-54.0 [facility] Hemoglobin [Mass/volume] in Bloodon 06-08-2024 Hemoglobin (Bld) [Mass/Vol] 14.6 g/dL 14.0-18.0 [facility] Laboratory - Chemistry and C hemistry - challengeon 06-08-2024 Albumin [Mass/Vol] 3.6 g/dL 3.4-5.0 [facility] ALP [Catalytic activity/Vol] 86 U/L 46-116 [facility] ALT [Catalytic activity/Vol] 46 U/L 16-63 [facility] AST [Catalytic activity/Vol] 27 U/L 15-37 [facility] Bilirubin [Mass/Vol] 0.5 mg/dL 0.2-1.0 [facility] Calcium [Mass/Vol] 9.3 mg/dL 8.5-10.1 [facility] Chloride [Moles/Vol] 100 mmol/L 98-107 [facility] Cholesterol [Mass/Vol] 147 mg/dL <=200 [facility] Cholesterol in HDL [Mass/Vol] 38 mg/dL Low 40-60 [facility] Comment on above: > or =60 mg/dl - LOW CARDIOVASCULAR RISK<40 mg/dl - HIGH CARDIOVASCULAR RISK CO2 [Moles/Vol] 28.7 mmol/L 21.0-32.0 [facility] Creatinine [Mass/Vol] 0.93 mg/dL 0.70-1.30 [facility] GFR/1.73 sq M.predicted MDRD (S/P/Bld) [Vol rate/Area] mL/min/{1.73_m2} >=60 [facility] Glucose [Mass/Vol] 121 mg/dL High 74-106 [facility] Potassium [Moles/Vol] 4.2 mmol/L 3.5-5.1 [facility] Protein [Mass/Vol] 7.7 g/dL 6.4-8.2 [facility] Sodium [Moles/Vol] 138 mmol/L 136-145 [facility] Triglyceride [Mass/Vol] 215 mg/dL High <=150 [facility] TSH Qn 3.486 m[IU]/L 0.358-3.740 [facility] Urea nitrogen [Mass/Vol] 16.0 mg/dL 7.0-18.0 [facility] Urea nitrogen/Creatinine [Mass ratio] 17.2 mg/mg [facility] Laboratory - Hematology and Cell countson 06-08-2024 HbA1c (Bld) [Mass fraction] 6.1 % 4.5-6.2 [facility] Comment on above: ADA RECOMMENDED LIMI T 4.0 - 6.0ADA THERAPEUTIC TARGET < 7.0ACTION SUGGESTED> 7.0 Immature granulocytes/100 WBC (Bld) 0.3 % 0.0-0.5 [facility] Leukocytes [#/volume] correc giselle for nucleated erythrocytes in Blood by Automated counon 06-08-2024 WBC corrected for nucl RBC Auto (Bld) [#/Vol] 7.2 10 3/uL 4.0-11.0 [facility] Lymphocytes Auto (Bld) [#/Vo l]on 06-08-2024 Lymphocytes (Bld) [#/Vol] 2.3 10 3/uL 1.2-3.8 [facility] Lymphocytes/100 WBC Auto (Bl d)on 06-08-2024 Lymphocytes/100 WBC (Bld) 32.3 % 20.5-60.0 [facility] MCH Auto (RBC) [Entitic mass ]on 06-08-2024 MCH (RBC) [Entitic mass] 29.0 pg 25.9-34.0 [facility] MCHC Auto (RBC) [Mass/Vol]on 06-08-2024 MCHC (RBC) [Mass/Vol] 32.2 g/dL 29.9-35.2 [facility] MCV Auto (RBC) [Entitic vol] on 06-08-2024 MCV (RBC) [Entitic vol] 89.9 fL 80.0-94.0 [facility] Monocytes Auto (Bld) [#/Vol] on 06-08-2024 Monocytes (Bld) [#/Vol] 0.4 10 3/uL 0.3-0.8 [facility] Monocytes/100 WBC Auto (Bld) on 06-08-2024 Monocytes/100 WBC (Bld) 6.1 % 1.7-12.0 [facility] Neutrophils Auto (Bld) [#/Vo l]on 06-08-2024 Neutrophils (Bld) [#/Vol] 4.1 10 3/uL 1.4-6.5 [facility] Neutrophils/100 WBC Auto (Bl d)on 06-08-2024 Neutrophils/100 WBC (Bld) 57.0 % 43.0-75.0 [facility] No Panel Informationon 06-08 Eosinophils # (Auto) 0.2 10 3/uL 0.0-0.7 [facility] Immature Granulocyte # (Auto) 0.02 10 3/uL 0.00-0.03 [facility] Platelet mean volume Auto (B ld) [Entitic vol]on 06-08-2024 Platelet mean volume (Bld) [Entitic vol] 10.0 fL 9.5-13.5 [facility] Platelets Auto (Bld) [#/Vol] on 06-08-2024 Platelets (Bld) [#/Vol] 355 10 3/uL 150-450 [facility] RBC Auto (Bld) [#/Vol]on RBC (Bld) [#/Vol] 5.04 10 6/uL 4.70-6.10 [facility] Serum or plasma albumin/glob ulin mass ratioon 06-08-2024 Albumin/Globulin [Mass ratio] 0.9 {ratio} [facility] Serum or plasma anion gap de terminationon 06-08-2024 Anion gap [Moles/Vol] 13.5 mmol/L [facility] Serum or plasma total choles terol/high density lipoprotein (HDL) cholesterol mass maria luz 06-08-2024 Cholesterol.total/C holesterol in HDL [Mass ratio] 3.9 {ratio} [facility] Comment on above: 3.3 - [...] interpretation performed at [facility] [address] [facility] [address] Clinical History: Physician Contact Number: [phone] Fixative (A): Saline Fixative (B): Saline Clinical [...] specimen is entirely submitted in 7 cassettes. [facility] B: Received in formalin, labeled with the patient's name and hospital number and B, microdebrider contents , are multiple, irregular segments of blood and soft tissue aggregating to 5.4 x 3.7 x 1.5 cm. Onion Topper sections are submitted in 8 cassettes [facility] Note: Per the pathologist, the rest of specimen B is submitted in toto in [address] 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 Please feel free to contact my office by calling [phone] with any questions. Provider Impressions 1. Inverted [...] (Please see procedure below.) SINONASAL ENDOSCOPY (CPT 24508): To better evaluate the patient's symptoms, sinonasal [...] free to contact my office by calling [phone] with any questions. Provider Impressions 1. Inverted [...] day Tylenol TABS Vitals Vital Signs Recorded: [id number] 07:57AM Height6 ft Kyaouk218 lb 8 oz BMI Akozgpovgm73.81 kg/m2 BSA Calculated2.89 Tobacco Useb) No Falls [...] (Please see procedure below.) SINONASAL ENDOSCOPY (CPT 74268): To better evaluate the patient's symptoms, sinonasal [...] May 27 2023 8:22AM EST (Author) Normal [facility] Tobacco Screening.on 023 Fall risk assessment a) [facility] falls within the last year [facility] Work Phone: Tobacco use status [facility] b) [facility] Work Phone: Established Visit (Otolaryng ology)on 05-20-2023 Established Visit (Otolaryngology) Diagnoses/Problems Chronic ethmoidal sinusitis (473.2) (J32.2) Chronic maxillary sinusitis (473.0) (J32.0) 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 Please feel free to contact my office by calling [phone] with any questions. Provider Impressions 1. Inverted [...] asked him to reach out to my confidential secretary and we discussed some time parameters [...] TIMES DAILY NEEDED. Vitals Vital Signs Recorded: [id number] 12:20PM Height6 ft Fitakn114 lb 3.2 oz BMI Ykkokuuzct25.31 kg/m2 BSA Calculated2.91 Tobacco Useb) No PHQ-2 [...] (Please see procedure below.) SINONASAL ENDOSCOPY (CPT 33796): To better evaluate the patient's symptoms, sinonasal [...] Screening.on 023 Adult depression screening assessment No [facility] Work Phone: Fall risk assessment a) No falls within the last year [facility] Work Phone: Tobacco use status CPHS b) No -[facility]aryng [facility] 4100 Work Phone: No Panel [facility]on 05-15 [facility] Work Phone: Order Reconciliationon 05-15 Order [...] Assistance Level: (more content not included)... Normal [facility] Patient Profile - Preop v3on 05-15-2023 Patient Profile - Preop v3 Patient Profile - Preop: Initial Info: Patient DemographicsName: WALE [place] Date: 2000 Address: [facility] [place], [address] Primary Phone [phone] How to be AddressedDylan Spoken Language PreferredEnglish Stated Reason for Admissioninverted papilloma Primary Contact Name and Numbereve Stern [phone] Limitations on Visitors/Phone Callsnone Medications Brought to Hospitalno General Health: Weight in kg185.1 kilogram(s) Weight in hmu201 pound(s) Height in feet5 feet Height in .97 inch(es) Height in cm182.8 centimeter(s) BMI (kg/m2)55.392 square meter Patient or Family Member Reaction to Anesthesiano previous reaction Blood Avoidance/Restrictionsnon e Previous Transfusion Reactionno Health Mgmt: Symptoms/Conditions Managed at Homerespiratory Respiratory Symptoms/Conditionssleep disordered breathing Barriers to Managing Healthnone Relationship/Environ: Lives Withparent(s) Living Arrangementshouse Living Environment Commentsmom Resource/Environmental Concernsnone Anticipated Transition [place] [facility] Anticipated at Transitionnone Tobacco Use: Tobacco [...] Updated: 15-May-2023 11:21 by Ginny Cohen) Normal [facility] Surgical Pathology Depar tmenton 05-15-2023 [facility] Surgical Pathology Department Name WALE [place] [...] interpretation performed at [facility] [id number] [place] [id number] Clinical History: Physician Contact Number: [phone] Fixative (A): Saline Fixative (B): Saline Clinical [...] specimen is entirely submitted in 7 cassettes. [facility] B: Received in formalin, labeled with the patient's name and hospital number and B, microdebrider contents , are multiple, irregular segments of blood and soft tissue aggregating to 5.4 x 3.7 x 1.5 cm. Onion Topper sections are submitted in 8 cassettes [facility] Note: Per the pathologist, the rest of specimen B is submitted in toto in [address] [facility]/05/19/2023 [facility] Department of Pathology [address] [place] [address] Normal [facility] Comment on above: Performed By: #### U HCS #### [facility] Surgical Pathology Department [address] [place] [facility] [address] BASIC METABOLIC PANELon 08-0 Anion gap [Moles/Vol] 16 mmol/L Normal 10 - 20 [facility] Comment on above: Performed By: #### B MP #### [facility] [address] [place] [address] Calcium [Mass/Vol] 9.8 mg/dL Normal 8.6 - 10.6 [facility] Comment on above: Performed By: #### B MP #### [facility] [address] [place] [address] Chloride [Moles/Vol] 101 mmol/L Normal 98 - 107 [facility] Comment on above: Performed By: #### B MP #### [facility] [address] [place] [address] Creatinine [Mass/Vol] 0.81 mg/dL Normal 0.50 - 1.30 [facility] Comment on above: Performed By: #### B MP #### [facility] [address] [place] [address] eGFR MALE >90 Normal >90 [facility] Comment on above: Result Comment: CALC ULATIONS OF ESTIMATED GFR ARE PERFORMED USING THE 2020 CKD-EPI STUDY REFIT EQUATION WITHOUT THE RACE VARIABLE FOR THE IDMS-TRACEABLE CREATININE METHODS. https://jasn.asnjournals.org/content/early/ASN.63595078 88 Performed By: #### B MP #### [facility] [address] [place] [address] Glucose [Mass/Vol] 81 mg/dL Normal 74 - 99 [facility] Comment on above: Performed By: #### B MP #### [facility] [address] [place] [address] HCO3 (Bld) [Moles/Vol] 27 mmol/L Normal 21 - 32 [facility] Comment on above: Performed By: #### B MP #### [facility] [address] [place] [address] Potassium [Moles/Vol] 4.5 mmol/L Normal 3.5 - 5.3 [facility] Comment on above: Performed By: #### B MP #### [facility] [address] [place] [address] Sodium [Moles/Vol] 139 mmol/L Normal 136 - 145 [facility] Comment on above: Performed By: #### B MP #### [facility] [address] [place] [address] Urea nitrogen [Mass/Vol] 13 mg/dL Normal 6 - 23 [facility] Comment on above: Performed By: #### B MP #### [facility] [address] [place] [address] CBCon 05-12-2023 Erythrocyte distribution width (RBC) [Ratio] 13.0 % Normal 11.5 - 14.5 [facility] Comment on above: Performed By: #### C BC #### [facility] [address] [place] [address] Hematocrit (Bld) [Volume fraction] 47.2 % Normal 41.0 - 52.0 [facility] Comment on above: Performed By: #### C BC #### [facility] [address] [place] [address] Hemoglobin (Bld) [Mass/Vol] 14.4 g/dL Normal 13.5 - 17.5 [facility] Comment on above: Performed By: #### C BC #### [facility] [address] [place] [address] MCHC (RBC) [Mass/Vol] 30.5 g/dL Low 32.0 - 36.0 [facility] Comment on above: Performed By: #### C BC #### [facility] [address] [place] [address] MCV (RBC) [Entitic vol] 94 fL Normal 80 - 100 [facility] Comment on above: Performed By: #### C BC #### [facility] [address] [place] [address] NUCLEATED RBC 0.0 /100 WBC Normal 0.0-0.0 [facility] Comment on above: Performed By: #### C BC #### [facility] [address] [place] [address] Platelets (Bld) [#/Vol] 400 10*3/uL Normal 150 - 450 [facility] Comment on above: Performed By: #### C BC #### [facility] [address] [place] [address] RBC 5.03 x10E12/L Normal 4.50 - 5.90 [facility] Comment on above: Performed By: #### C BC #### [facility] [address] [place] [address] WBC (Bld) [#/Vol] 9.2 10*3/uL Normal 4.4 - 11.3 [facility] Comment on above: Performed By: #### C BC #### [facility] [address] [place] [address] Laboratory - Chemistry and C hemistry - challengeon 05-12-2023 Anion gap [Moles/Vol] 16 mmol/L 10 - 20 MG-Otolaryng ology-[facility] 4100 Work Phone: [phone] Calcium [Mass/Vol] 9.8 mg/dL 8.6 - 10.6 [facility]-[place] laryng ology-[facility] 4100 Work Phone: [phone] Chloride [Moles/Vol] 101 mmol/L 98 - 107 MG-Otolaryng ology-[facility] 4100 Work Phone: [phone] CO2 [Moles/Vol] 27 mmol/L 21 - 32 MG-Otolar yng ology-[facility] 4100 Work Phone: [phone] Creatinine [Mass/Vol] 0.81 mg/dL See Below MG-Otolaryng ology-[facility] [place] 349760 Work Phone: [phone] Comment on above: Reference Range: 0.5 0 - 1.30 Glucose [Mass/Vol] 81 mg/dL 74 - 99 [facility] laryng ology-[facility] 4100 Work Phone: [phone] Potassium [Moles/Vol] 4.5 mmol/L 3.5 - 5.3 MG-Otolaryng ology-[facility] 4100 Work Phone: [phone] Sodium [Moles/Vol] 139 mmol/L 136 - 145 [facility] laryng ology-[facility] 4100 Work Phone: [phone] Urea nitrogen [Mass/Vol] 13 mg/dL 6 - 23 MG-Otolaryng ology-[facility] 4100 Work Phone: [phone] Laboratory - Hematology and Cell countson 05-12-2023 Erythrocyte distribution width (RBC) [Ratio] 13.0 % See Below MG-Otolaryng ology-[facility] 4100 Work Phone: Comment on above: Reference Range: 11. 5 - 14.5 Hematocrit (Bld) [Volume fraction] 47.2 % See Below [place] [address] Work Phone: Comment on above: Reference Range: 41. 0 - 52.0 Hemoglobin (Bld) [Mass/Vol] 14.4 g/dL See Below [place] [address] Work Phone: Comment on above: Reference Range: 13. 5 - 17.5 MCHC (RBC) [Mass/Vol] 30.5 g/dL below low threshold See Below [place] [address] Work Phone: Comment on above: Reference Range: 32. 0 - 36.0 MCV (RBC) [Entitic vol] 94 fL 80 - 100 [place] [address] Work Phone: Platelets (Bld) [#/Vol] 400 10*3/uL 150 - 450 [place] [address] Work Phone: RBC (Bld) [#/Vol] 5.03 {x10E12/L} See Below [place] [address] Work Phone: Comment on above: Reference Range: 4.5 0 - 5.90 WBC (Bld) [#/Vol] 9.2 10*3/uL 4.4 - 11.3 [place] [address] Work Phone: No Panel Informationon 05-12 >90 >90 [place] [address] Work Phone: Comment on above: CALCULATIONS OF AMANDA MATED GFR ARE PERFORMED USING THE 2020 CKD-EPI STUDY REFIT EQUATION WITHOUT THE RACE VARIABLE FOR THE IDMS-TRACEABLE CREATININE METHODS.https://jasn.asnjournals.org/content//ASN. 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 Provider Impressions 1. Inverted [...] DAILY UNTIL FINISHED. Vitals Vital Signs Recorded: 12Obe5007 01:56PM Height6 ft Lzrotl411 lb 9 oz BMI Ssowjwtrtn10.63 kg/m2 BSA Calculated2.91 Tobacco Useb) No PHQ-2 [...] Adult depression screening assessment No -Otolarynjosef Person Ludei Work Phone: Fall risk assessment a) No falls within the last year [employer]-Jennifer molina Work Phone: Tobacco use status CPHS b) No [employer]-Otolarynjosef olmerlyny-Kateryna Ludei Work Phone: Established Visit (Otolaryng ology)on 01-06-2023 Established Visit (Otolaryngology) Diagnoses/Problems Chronic ethmoidal sinusitis (473.2) (J32.2) Chronic maxillary sinusitis (473.0) (J32.0) Nasal congestion (478.19) (R09.81) 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 Provider Impressions 1. 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 Please feel free to contact my office by calling [phone] with any questions. Provider Impressions 1. Inverted [...] No Reported Medications Vitals Vital Signs Recorded: 30Soo9071 04:13PM Height6 ft Ibbupl385 lb 8 oz BMI Bhwznqkdhy14.89 kg/m2 BSA Calculated2.92 Tobacco Useb) No PHQ-2 [...] (Please see procedure below.) SINONASAL ENDOSCOPY (CPT 07210): To better evaluate the patient's symptoms, sinonasal endoscopy is indicated. After discussion of risks and benefits, and topical decongestion and anesthesia,an endoscope was used to perform (more content not included)... Normal Opt[facility] Tobacco Screening.on 023 Adult depression screening assessment No [employer]OtolarynLumoid-Tripl Work Phone: Fall risk assessment a) No falls within the last year [employer] Work Phone: Tobacco use status CPHS b) No [employer]-Otolaryng [address]-[facility] Work Phone: MRI LSPINE WO CONon 07-23-20 [...] by: ANTONIO WEINSTEIN Date: 2022-07-23 12:04 Normal [facility] XR LSPINE 2_3 VIEWSon 2021 XR [...] by: ANTONIO WEINSTEIN Date: 2022-02-18 15:30 Normal [facility] Pathology Reporton 0 Pathology Report [id number]:12 7 Normal [facility] Coding Summary.on 08-31-2019 Coding Summary. CODING DATE: 019 FINAL [facility] STATUS: Home (Routine DC) PAYOR: Medical Florence APC DESCRIPTION 5155 Level 5 Airway Endoscopy ADMIT DX: REASON FOR VISIT DX: J32.4 Chronic pansinusitis FINAL DX: PRINCIPAL: J32.4 Chronic pansinusitis SECONDARY: J34.89 Other specified disorders of nose and nasal sinuses J45.909 Unspecified asthma, uncomplicated G47.30 Sleep apnea, unspecified Z99.89 Dependence on other enabling machines and devices PYMT PROC APC STAT DESCRIPTION DOCTOR NAME DATE 34768 5154 J1 Nasal/sinus endoscopy, Jeferson HUBBARD, Yolette Ureña 08/25/2019 surgical with ethmoidectomy; total (anterior and posterior), including sphenoidotomy, with removal of tissue from the sphenoid sinus RT Right side (used to identify procedures performed on the right side of the body) 78663 5155 J1 Nasal/sinus endoscopyJeferson MD, Hilary H 08/25/2019 surgical, with maxillary antrostomy; with removal of tissue from maxillary sinus RT Right side (used to identify procedures performed on the right side of the body) 00175 5155 J1 Nasal/sinus endoscopyJeferson MD, Hilary H 08/25/2019 surgical, with frontal sinus exploration, including removal of tissue from frontal sinus, when performed RT Right side (used to identify procedures performed on the right side of the body) 61387 Anesthesia for Loyd López Jr., DO 08/25/2019 [...] WALE MI/Sex: 2000 Male Med Rec #: [id number] Physician: Yolette Govea MD Financial #: [id number] Pt. Type: A Room/Bed: [facility]/ Admit/Disch: 08/25/19 09:16:00 - 08/25/19 15:30:00 Institution: [...] opened to review and send charges Kristy Jerome [facility] Case Attendance FT Entry 1 Entry 2 Entry 3 Case Attendee Rene Nava DO, Loyd Govea MD, Yolette Kimball RN, Jomar Morales Role Performed Anesthesiologist of Surgeon - Primary Acoustic Intelligence Specialist - Primary Record Time In 08/25/19 10:37:00 08/25/19 10:37:00 08/25/19 10:37:00 Time Out 08/25/19 13:03:00 08/25/19 13:03:00 08/25/19 13:03:00 Procedure ANTROSTOMY TURBINECTOMY ANTROSTOMY TURBINECTOMY ANTROSTOMY TURBINECTOMY ETHMOIDECTOMY IM(Right) ETHMOIDECTOMY IM(Right) ETHMOIDECTOMY IM(Right) Comments out of room from 1027-1175. Last Modified By: Patrick INFANTE, Nelly Nguyen RN, Nelly Robison RN 08/25/19 13:05:43 08/25/19 13:05:43 08/25/19 13:05:43 Entry 4 Entry 5 Entry 6 Case Attendee Patrick INFANTE, Nelly Aguilar CHILD AND FAMILY SERVICES SPECIALIST, Enzo Tijerina CHILD AND FAMILY SERVICES SPECIALIST, Sheba Segovia Role Performed Acoustic Intelligence Specialist - Primary Scrub - Primary Scrub - Relief Time In 08/25/19 10:37:00 08/25/19 10:37:00 08/25/19 11:40:00 Time Out 08/25/19 13:03:00 08/25/19 13:03:00 08/25/19 12:14:00 Procedure ANTROSTOMY TURBINECTOMY ANTROSTOMY TURBINECTOMY ANTROSTOMY TURBINECTOMY ETHMOIDECTOMY IM(Right) ETHMOIDECTOMY IM(Right) ETHMOIDECTOMY IM(Right) Comments out for lunch at out for lunch at [phone] Last Modified By: Patrick INFANTE, Nelly Nguyen [...] and tissue Entry 1 Skin Integrity Intact, [place], Warm, and Skin Abnormality No Dry Outcomes [...] 08/25/19 11:42:00 By Rehana INFANTE, Breezy Staton CHILD AND FAMILY SERVICES SPECIALIST, Jeff Marcano CST, Jeff Giraldo CST, Enzo [...] L Patient Status Stable Skin. Condition Intact, [place], Warm, and Dry Airway Maintenance Oxygen in Use? Yes Airway Device Simple Mask Flow Rate 10 L/min Outcomes Met? Yes Last Modified By: Jomar Kimball RN 08/25/19 11:48:09 Post-Care Text: The patient is free from signs and symptoms of injury related to transfer/transport General Comments: handoff report given to pacu nurse. ARELIS Whelancloth trimmer hand Administration FT Pre-Care Text: Verifies allergies, administers [...] AIR Quantity 1 Aid PLUS LOWER BODY [[id number]][F] Fluid/[place] Unit Mistral warming system Setting high/43 degrees [...] Yolette Govea Jr., M.D. aek Dictated: 08/25/2019 #[id number] Typed: 08/26/2019 #[id number] cc: Wiliam Carrillo Jr., M.D. [facility] Comment on above: Result Comment: Elec tronically Signed By: Yolette Govea MD\.br\Date and Time Signed: 08/26/19 09:56 EST Inpatient Patient Summaryon 08-25-2019 Inpatient Patient Summary [facility] Clinical Discharge Instructions PERSON INFORMATION Name: [place] PHYSICIANS Admitting Physician: Yolette Govea MD Attending Physician: Yolette Govea MD PCP: ENZO COLEMAN DO Discharge Diagnosis: Chronic pansinusitis Comment: PATIENT EDUCATION INFORMATION Instructions: Post Op Patient Instructions - FT (CUSTOM) Medication Leaflets: Follow up: With: Address: When: Yolette Govea [address] [place] [address] Business (1) In 6 days 08/31/2019 Comments: Call for followup appointment MEDICATION LIST Comment: Keshav [facility] Main OR PACU I Recordon 08-06 Main OR PACU I Record PACU Phase I Document Type FT Summary Primary Physician: Yolette Govea MD Finalized Date/Time: 08/25/19 13:39:03 Pt. Name: WALE MI/Sex: 2000 Male Med Rec #: [id number] Physician: Yolette Govea MD Financial #: [id number] Pt. Type: A Room/Bed: [place] [address] Admit/Disch: 08/25/19 09:16:27 - Institution: Case Times [...] Name: SHMUELWALE/Sex: 2000 Male Med Rec #: [id number] Physician: Yolette Govea MD Financial #: [id number] Pt. Type: A Room/Bed: [facility]/ Admit/Disch: 08/25/19 09:16:27 - Institution: Case [...] W[place] MI/Sex: 2000 Male Med Rec #: [id number] Physician: Yolette Govea MD Financial #: [id number] Pt. Type: A Room/Bed: [facility] Admit/Disch: 08/25/19 09:16:27 - Institution: Case Times [...] By: Nelly Nguyen RN 08/25/19 11:07 Normal [facility] Operative Reporton 9 Operative Report Patient: Ministerio MI Age: 18 years Sex: Male : 2000 Associated Diagnoses: None Author: Yolette Govea MD Postoperative Information Procedure: RT IG microdebrider assisted MMA with r/o tissue, total ethmoidectomy, frontal sinusotomy, sphenoidotomy with r/o tissue Preoperative Diagnosis: Chronic pansinusitis (AYQ52-BV J32.4, Working, Medical). Postoperative Diagnosis: Chronic pansinusitis (HFS26-QV J32.4, Discharge, Medical). Performed by: Yolette Govea [...] 08-22-2019 Coding Summary. CODING DATE: 019 FINAL [facility] STATUS: Home (Routine DC) PAYOR: Medical Florence APC DESCRIPTION 5521 Level 1 Imaging without [...] by Discern Expert. Performed By: #### 2 841657, [id number], [id number] #### [facility] [address] [place] [address] Basophils/Leukocyte s Auto (Bld) [Pure # fraction] 0.2 E9/L Normal 0.0-0.2 [facility] Comment on above: Order Comment: Order Added by Discern Expert. Performed By: #### 2 726115, [id number], [id number] #### [facility] [address] [place] [address] Eosinophils/100 WBC (Bld) 1.1 % Normal 0.0-8.0 [facility] Comment on above: Order Comment: Order Added by Discern Expert. Performed By: #### 2 785291, 6532588, [id number] #### [facility] [address] [place] [address] Eosinophils/Leukocy carlos Auto (Bld) [Pure # fraction] 0.1 E9/L Normal 0.0-0.5 [facility] Comment on above: Order Comment: Order Added by Discern Expert. Performed By: #### 2 199366, 5748317, [id number] #### [facility] [address] [place] [address] Lymphocytes/100 WBC (Bld) 21.2 % Normal 14.0-50.0 [facility] Comment on above: Order Comment: Order Added by Discern Expert. Performed By: #### 2 783222, 9553215, [id number] #### [facility] [address] [place] [address] Lymphocytes/Leukocy carlos Auto (Bld) [Pure # fraction] 2.3 E9/L Normal 1.0-4.0 [facility] Comment on above: Order Comment: Order Added by Discern Expert. Performed By: #### 2 039685, 1526205, [id number] #### [facility] [address] [place] [address] Monocytes/100 WBC (Bld) 5.4 % Normal 4.0-14.0 [facility] Comment on above: Order Comment: Order Added by Discern Expert. Performed By: #### 2 134443, 6808857, [id number] #### [facility] [address] [place] [address] Monocytes/Leukocyte s Auto (Bld) [Pure # fraction] 0.6 E9/L Normal 0.2-1.0 [facility] Comment on above: Order Comment: Order Added by Discern Expert. Performed By: #### 2 229181, 1381854, [id number] #### [facility] [address] [place] [address] 279[address] Neutrophils/100 WBC (Bld) 70.9 % Normal 36.0-75.0 [facility] Comment on above: Order Comment: Order Added by Discern Expert. Performed By: #### 2 654353, 0463426, [id number] #### [facility] [address] [place] [address] Neutrophils/Leukocy carlos Auto (Bld) [Pure # fraction] 7.6 E9/L High 2.0-7.5 [facility] Comment on above: Order Comment: Order Added by Discern Expert. Performed By: #### 2 240661, 1815269, [id number] #### [facility] [address] [place] [address] BUNon 08-19-2019 Urea nitrogen [Mass/Vol] 12 mg/dL Normal 5-21 [facility] Comment on above: Performed By: #### 2 583111, 3042331, 18255251, 9180037, 0669475 #### [facility] [address] [place] [address] CBC w/ Auto Diffon 9 Erythrocyte distribution width (RBC) [Ratio] 14.1 % Normal 10.9-14.2 [facility] Comment on above: Performed By: #### 2 210440, 9676554, 09450522 #### [facility] [address] [place] [address] Hematocrit (Bld) [Volume fraction] 48.4 % Normal 37.7-49.0 [facility] Comment on above: Performed By: #### 2 168871, 9153018, 22745995 #### [facility] [address] [place] [address] Hemoglobin (Bld) [Mass/Vol] 16.2 g/dL Normal 13.5-17.5 [facility] Comment on above: Performed By: #### 2 649465, 0032104, 55335729 #### [facility] [address] [place] [address] 26703 MCH (RBC) [Entitic mass] 29.0 pg Normal 27.0-34.0 [facility] Comment on above: Performed By: #### 2 816389, 8482080, 12866929 #### [facility] [address] [place] [address] MCHC (RBC) [Mass/Vol] 33.6 g/dL Normal 31.4-36.0 [facility] Comment on above: Performed By: #### 2 678553, 8786055, 87135695 #### [facility] [address] [place] [address] MCV (RBC) [Entitic vol] 86.5 fL Normal 80.0-100.0 [facility] Comment on above: Performed By: #### 2 056626, 5228221, 47448350 #### [facility] [address] [place] [address] 16868 Platelet mean volume (Bld) [Entitic vol] 8.7 fL Normal 6.4-10.8 [facility] Comment on above: Performed By: #### 2 200037, 0500303, 65252467 #### [facility] [address] [place] [address] Platelets (Bld) [#/Vol] 351.0 E9/L Normal 150.0-500.0 [facility] Comment on above: Performed By: #### 2 400669, 0897580, 69311596 #### [facility] [address] [place] [address] RBC (Bld) [#/Vol] 5.6 E12/L Normal 4.3-5.9 [facility] Comment on above: Performed By: #### 2 019699, 6272166, 85329566 #### [facility] [address] [place] [address] 72061 WBC corrected for nucl RBC Auto (Bld) [#/Vol] 10.7 E9/L Normal 4.0-11.0 [facility] Comment on above: Performed By: #### 2 427711, 0669049, 99731464 #### [facility] [address] [place] [address] Creatinineon 08-19-2019 Creatinine [Mass/Vol] 0.8 mg/dL Normal 0.5-1.3 [facility] Comment on above: Performed By: #### 2 193917, 4391971, 26260285, 4685422, 1190918 #### [facility] [address] [place] [address] Glucoseon 08-19-2019 Glucose [Mass/Vol] 97 mg/dL Normal 55-199 [facility] Comment on above: Performed By: #### 2 277568, 0721593, 48478517, 2090445, 8676130 #### [facility] [address] [place] [address] Lyteson 08-19-2019 Anion gap [Moles/Vol] 14 mmol/L Normal 6-16 [facility] Comment on above: Performed By: #### 2 169715, 0357923, 34186064, 4408112, 7794381 ####[facility] [address] [place] [address] Chloride [Moles/Vol] 104 mmol/L Normal 101-111 [facility] Comment on above: Performed By: #### 2 414954, 0731058, 05595355, 3573580, 8637511 ####[facility] [address] [place] [address] CO2 [Moles/Vol] 25 mmol/L Normal 21-31 [facility] Comment on above: Performed By: #### 2 213592, 2530321, 92474681, 7815760, 3696576 ####[facility] [address] [place] [address] Potassium [Moles/Vol] 3.5 mmol/L Normal 3.5-5.3 [facility] Comment on above: Performed By: #### 2 048471, 4120890, 98373580, 0697661, 7753206 ####[facility] [address] [place] [address] Sodium [Moles/Vol] 139 mmol/L Normal 135-145 [facility] Comment on above: Performed By: #### 2 493198, 1432323, 64924816, 7130761, 7129633 ####[facility] [address] [place] [address] PT & PTTon 08-19-2019 aPTT Coag (PPP) [Time] 35.7 second(s) Normal 25.1-36.5 [facility] Comment on above: Result Comment: Hepa rin therapeutic range (represented by Anti-Factor Xa activity of 0.2 - 0.4 U/mL) corresponds to PTT of 56.6 - 109.0 sec. Performed By: #### 2 006361, 0356542, 46432491 #### [facility] [address] [place] [address] INR Coag (PPP) [Relative time] 1.0 {INR} [facility] Comment on above: Result Comment: INR results are specifically intended to assess patients stabilized on long-term Anticoagulation therapy suggested INR?s ?Less Intensive Anticoagulation? 2.0 ? 3.0 Conventional Range 3.0 ? 4.5 Performed By: #### 2 184307, 0174082, 12974184 #### [facility] [address] [place] [address] PT Coag (PPP) [Time] 11.6 second(s) Normal 10.2-12.9 [facility] Comment on above: Performed By: #### 2 308248, 2862759, 24446628 #### [facility] [address] [place] [address] XR Chest 2 Viewson 9 XR Chest [...] race adjusted. AA=. Performed By: #### 2 035574, 7759050, 40374869, 9409326, 9309481 #### [facility] [address] [place] [address] GFR/1.73 sq M predicted among non-blacks MDRD (S/P/Bld) [Vol rate/Area] mL/min/{1.73_m2} Normal >=59 [facility] Comment on above: Order Comment: Order added by Discern Expert. Result Comment: Pleasure Craft Sailor niall kidney disease could be indicated at eGFR's of less than 60 mL/min/1.73m2. Kidney failure is indicated at less than 15 mL/min/1.73m2. Performed By: #### 2 697718, 9431074, 61736445, 4814021, 4802592 #### [facility] [address] [place] [address] Coding Summary.on 08-08-2019 Coding Summary. CODING DATE: 019 FINAL [facility] DSC STATUS: Home (Routine DC) PAYOR: Medical Florence APC DESCRIPTION 5522 Level 2 Imaging without [...] 182.25 cm Enzo Ball DO Work Phone: [facility] 05-23-2025 15:210400 Body mass index (BMI) [Ratio] 56.5 kg/m2 Enzo Ball DO Work Phone: [facility] 05-23-2025 15:210400 Body weight 187.9 kg Enzo Ball DO Work Phone: [facility] 05-23-2025 15:21-0400 Diastolic blood pressure 80 mm[Hg] Enzo Ball DO Work Phone: [facility] 05-23-2025 15:21-0400 Heart rate 112 /min Enzo Ball DO Work Phone: [facility] 05-23-2025 15:21-0400 Respiratory rate 12 /min Enzo Ball DO Work Phone: [facility] 05-23-2025 15:21-0400 Systolic blood pressure 118 mm[Hg] Enzo Ball DO Work Phone: [facility] 01-16-2025 16:140400 Body height 182.25 cm [facility] 01-16-2025 16:140400 Body mass index (BMI) [Ratio] 56.4 kg/m2 [facility] 01-16-2025 16:14-0400 Body weight 187.44 kg [facility] 01-16-2025 16:14-0400 Diastolic blood pressure 108 mm[Hg] [facility] 01-16-2025 16:14-0400 Heart rate 102 /min [facility] 01-16-2025 16:14-0400 Respiratory rate 12 /min [facility] 01-16-2025 16:14-0400 SaO2% (BldA) [Mass fraction] 97 % [facility] 01-16-2025 16:14-0400 Systolic blood pressure 160 mm[Hg] [facility] 01-11-2025 15:29-0400 Body height 182.9 cm Dominick Barbosa MD Work Phone: [phone] [place] [address] 01-11-2025 15:29-0400 Body mass index (BMI) [Ratio] 55.95 kg/m2 Dominick Barbosa MD Work Phone: 2(629)[phone] [place] [address] 01-11-2025 15:29-0400 Body weight 187.11 kg Dominick Barbosa MD Work Phone: 3(450)[phone] [place] [address] 07-13-2024 13:18-0400 Body height 182.9 cm Dominick Barbosa MD Work Phone: 5(052)021-179913 [place] [address] 07-13-2024 13:18-0400 Body mass index (BMI) [Ratio] 56.42 kg/m2 Dominick Barbosa MD Work Phone: 5(431)339-758613 [place] [address] 07-13-2024 13:18-0400 Body weight 188.7 kg Dominick Barbosa MD Work Phone: 2(679)384-715613 [place] [address] 06-03-2024 14:05-0400 Body height 182.25 cm [facility] 06-03-2024 14:05-0400 Body mass index (BMI) [Ratio] 57.3 kg/m2 [facility] 06-03-2024 14:05-0400 Body weight 190.5 kg [facility] 06-03-2024 14:05-0400 Diastolic blood pressure 91 mm[Hg] [facility] 06-03-2024 14:05-0400 Heart rate 83 /min [facility] 06-03-2024 14:05-0400 Respiratory rate 12 /min [facility] 06-03-2024 14:05-0400 Systolic blood pressure 146 mm[Hg] [facility] 03-09-2024 15:02-0400 Body height 182.9 cm Dominick Barbosa MD Work Phone: [facility] 03-09-2024 15:02-0400 Body mass index (BMI) [Ratio] 56.32 kg/m2 Dominick Barbosa MD Work Phone: [facility] 03-09-2024 15:02-0400 Body weight 188.38 kg Dominick Barbosa MD Work Phone: [facility] 10-06-2023 12:15-0500 Body height 182.25 cm Enzo Ball Other [facility] [employer] Other 10-06-2023 12:15-0500 Body mass index (BMI) [Ratio] 54.62 kg/m2 Enzo Ball Other [facility] [employer] Other 10-06-2023 12:15-0500 Body weight 181.44 kg Enzo Ball Other [facility] [employer] Other 09-02-2023 15:29-0500 Body height 182.9 cm Dominick Barbosa MD Work Phone: [facility] 09-02-2023 15:29-0500 Body mass index (BMI) [Ratio] 54.37 kg/m2 Dominick Barbosa MD Work Phone: [facility] 09-02-2023 15:29-0500 Body weight 181.85 kg Dominick Barbosa MD Work Phone: [facility] 05-27-2023 07:57-0400 Body height 182.88 cm Enzo Coleman Work Phone: PR[facility]ichedcthhl[facility] 4100 Work Phone: 05-27-2023 07:57-0400 Body mass index (BMI) [Ratio] 55.81 kg/m2 Enzo Coleman Work Phone: DI-Ggdkwtnvdueyju-Ei[facility] 4100 Work Phone: 05-27-2023 07:57-0400 Body surface area Derived from formula 2.89 m2 Enzo Coleman Work Phone: [facility] 4[facility] Work Phone: 05-27-2023 07:57-0400 Body weight 186.66 kg Enzo Coleman Work Phone: IQ-[facility]iufnwhlblryxe[facility] 4100 Work Phone: 05-27-2023 07:57-0400 0 1 Enzo Coleman Work Phone: [facility] 4100 Work Phone: Comment on above: [employer] 05-20-2023 12:20-0400 Body height 182.88 cm Enzo Coleman Work Phone: [facility] 4100 Work Phone: 05-20-2023 12:20-0400 Body mass index (BMI) [Ratio] 56.31 kg/m2 Enzo Coleman Work Phone: [facility] 4100 Work Phone: 05-20-2023 12:20-0400 Body surface area Derived from formula 2.91 m2 Enzo Coleman Work Phone: O[facility]zfn[facility]iaml[facility] 4100 Work Phone: 05-20-2023 12:20-0400 Body weight 188.33 kg Enzo Coleman Work Phone: UL-Jlngjwiyorxfdf-Pq[facility] 4100 Work Phone: 05-15-2023 11:49-0400 Body temperature 96.8 [degF] Dominick Barbosa MD Work Phone: [facility] 05-15-2023 11:49-0400 Diastolic blood pressure 91 mm[Hg] Dominick Barbosa MD Work Phone: [facility] 05-15-2023 11:49-0400 Heart rate 82 /min Dominick Barbosa MD Work Phone: [facility] 05-15-2023 11:49-0400 Respiratory rate 16 /min Dominick Barbosa MD Work Phone: [facility] 05-15-2023 11:49-0400 Systolic blood pressure 139 mm[Hg] Dominick Barbosa MD Work Phone: [facility] 05-15-2023 11:18-0400 Body height 182.8 cm Dominick Barbosa MD Work Phone: [facility] 05-15-2023 11:18-0400 Body mass index (BMI) [Ratio] 55.39 kg/m2 Dominick Barbosa MD Work Phone: [facility] 05-15-2023 11:18-0400 Body weight 185.1 kg Dominick Barbosa MD Work Phone: [facility] 03-18-2023 13:56-0400 Body height 182.88 cm Enzo Coleman Work Phone: VK-Bakebbdiocynev-Nw [place] Work Phone: 03-18-2023 13:56-0400 Body mass index (BMI) [Ratio] 56.63 kg/m2 Enzo Coleman Work Phone: NA-Fyfyilvitpvcii-Sx [place] Work Phone: 03-18-2023 13:56-0400 Body surface area Derived from formula 2.91 m2 Enzo E Ball Work Phone: LC-Wguhposdfeypdj-Gu [place] Work Phone: 03-18-2023 13:56-0400 Body weight 189.41 kg Enzo E Ball Work Phone: DS-Aoiigakfjubtqb-Zv [place] Work Phone: 03-18-2023 13:56-0400 0 1 Enzo E Ball Work Phone: IO-Cafemgpzfheivi-My [place] Work Phone: Comment on above: [employer] 11-12-2022 16:13-0500 Body height 182.88 cm Enzo E Ball Work Phone: MV-Dytdbrrovxyrjc-Ve [place] Work Phone: 11-12-2022 16:13-0500 Body mass index (BMI) [Ratio] 56.89 kg/m2 Enzo E Ball Work Phone: ZA-Sfskpakwxoaima-Uf [place] Work Phone: 11-12-2022 16:13-0500 Body surface area Derived from formula 2.92 m2 Enzo E Ball Work Phone: JY-Puvfmywzxoyvki-Bf [place] Work Phone: 11-12-2022 16:13-0500 Body weight 190.29 kg Enzo E Ball Work Phone: GG-Tubrmutmqxzwwb-Qc [place] Work Phone: 11-12-2022 16:13-0500 0 1 Enzo E Ball Work Phone: ES-Tbhbdglxbqiavm-Rx [place] Work Phone: Comment on above: [employer] Encounters Encounter Date Encounter Type Care Provider Facility Start: 05-23-2025 End: 05-23-2025 ambulatory Enzo Ball DO Work Phone: [facility] Work Phone: Start: 05-23-2025 End: 05-23-2025 Patient encounter procedure Enzo Coleman -[facility] Work Phone: Start: 05-23-2025 End: 05-23-2025 [facility] Start: 02-13-2025 End: 02-13-2025 Office outpatient visit 15 minutes Dominick Barbosa MD Work Phone: [facility] Comment on above: 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); Chronic sphenoidal sinusitis Start: 02-13-2025 End: 02-13-2025 ambulatory DOMINICK Mandel [facility] Start: 02-13-2025 End: 02-13-2025 ambulatory Ruth Pfeiffer MD Facility:[facility] Start: 01-16-2025 End: 01-16-2025 ambulatory [facility] Work Phone: Start: 01-16-2025 End: 01-16-2025 Patient encounter procedure [facility] Work Phone: Start: 01-16-2025 End: 01-16-2025 ambulatory Ruth Pfeiffer MD Facility:[facility] Start: 01-11-2025 End: 01-11-2025 Office outpatient visit 15 minutes Dominick Barbosa MD Work Phone: 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); Chronic sphenoidal sinusitis; Chronic maxillary sinusitis Start: 01-11-2025 End: 01-11-2025 ambulatory DOMINICK Mandel [facility] Start: 01-02-2025 End: 01-02-2025 ambulatory Ruth Pfeiffer MD Facility:[facility] Start: 09-12-2024 End: 09-12-2024 ambulatory Ruth Pfeiffer MD Facility:[facility] Start: 08-08-2024 End: 08-08-2024 ambulatory [facility] Work Phone: Start: 08-08-2024 End: 08-08-2024 Patient encounter procedure [facility] Work Phone: Start: 07-13-2024 End: 07-13-2024 Office outpatient visit 15 minutes Dominick Barbosa MD Work Phone: [facility] Comment on above: Post-nasal drainage (Primary Dx); Chronic maxillary sinusitis; Nasal congestion Start: 07-13-2024 End: 07-13-[address] [facility] Start: 07-04-2024 End: 07-04-2024 ambulatory Ruth Pfeiffer MD Facility:[facility] Start: 06-08-2024 Non-patient / Non-visit [facility] [employer] Work Phone: Start: 06-03-2024 Patient encounter status [facility] Start: 06-03-2024 End: 06-03-2024 ambulatory [facility] Work Phone: Start: 06-03-2024 End: 06-03-2024 Encounter for general adult medical examination without abnormal findings [facility] Start: 06-03-2024 End: 06-03-2024 Patient encounter procedure [facility] Work Phone: Start: 03-09-2024 End: 03-09-[address] [facility] Start: 03-09-2024 End: 03-09-2024 Office outpatient visit 15 minutes Dominick Barbosa MD Work Phone: [facility] Comment on above: Chronic ethmoidal si nusitis (Primary Dx); Chronic maxillary sinusitis Start: 10-06-2023 End: 10-06-2023 ambulatory Enzo [employer] Other [facility] Other Start: 10-06-2023 Office outpatient vi sit 15 minutes Enzo Coleman [facility] Start: 09-02-2023 End: 09-02-2023 Office outpatient visit 15 minutes Dominick Barbosa MD Work Phone: [facility] Comment on above: Chronic ethmoidal si nusitis (Primary Dx); Other chronic sinusitis; Chronic sphenoidal sinusitis Start: 06-07-2023 Chart Update Enzo morales Work Phone: IP[facility]Cfmsbvuqoetqcd[facility] 5[facility] Work Phone: Start: 05-27-[address] Dominick Cerda Facility:[id number] Start: 05-20-2023 Postop follow up vis it related to original px Enzo Coleman Work Phone: OY-Rmvxwnummuploz-Xdzt[facility] 9765 Work Phone: Start: 05-20-[address] Enzo Coleman Facility:[id number] Start: 05-15-2023 End: 05-15-[address] Dominick Barbosa Facility:[facility] Start: 05-15-2023 AUDIT Enzo morales Work Phone: PF-Hhnhzazuviugdn-[facility] 0905 Work Phone: Start: 05-15-2023 End: 05-15-2023 Subsequent hospital visit by physician Dominick Barbosa MD Work Phone: [facility] Comment on above: Chronic ethmoidal si nusitis; Benign neoplasm of middle ear, nasal cavity and accessory sinuses; Chronic sinusitis, unspecified Start: 05-12-[address] Dominick Cerda Facility:[facility] Start: 05-12-2023 Encounter for preprocedural laboratory examination Dr. Dominick Barbosa [facility] Start: 03-18-2023 Office outpatient vi sit 15 minutes Enzo Coleman Work Phone: ZC-Ntgnnbnaaxqahr-FbqmSt. [facility] 5987 Work Phone: Start: 03-18-2023 Patient encounter procedure Enzo Coleman Work Phone: HO-Jtpwbyjemehvzp-Aqqd [place] Work Phone: Start: 03-18-[address] Dominick Cerda Facility:[id number] Start: 01-07-2023 End: 01-07-2023 ambulatory Enzo Coleman Other [facility] Other Start: 01-07-2023 Telephone encounter Enzo Coleman [facility] Start: 01-06-2023 Office outpatient vi sit 25 minutes Enzo [place] Work Phone: RG-Zqeahmyluggomd-[facility] 4103 Work Phone: Start: 01-06-[address] Dominick Cerda Facility:[id number] Start: 01-05-2023 End: 01-05-2023 ambulatory Enzo Coleman Other [facility] Other Start: 01-05-2023 Office outpatient vi sit 15 minutes Enzo Coleman [facility] Start: 11-19-2022 End: 11-20-[address] DOCTOR PARISI Facility:H1 Start: 11-12-2022 Office outpatient vi sit 25 minutes Enzo Coleman Work Phone: [facility] 4100 Work Phone: Start: 11-12-2022 Patient encounter procedure Enzo Coleman Work Phone: NN-Mqynvvsbcpxhkw-Prte [place] Work Phone: Start: 11-12-[address] Dominick Cerda Facility:[id number] Start: 07-29-2022 End: 08-23-[address] ENZO COLEMAN Facility:H1 Start: 07-22-2022 End: 07-23-[address] ENZO COLEMAN Facility:H1 Start: 06-24-2022 Well child visit Enzo Coleman Other [facility] Other Start: 03-20-2022 End: 04-25-[address] [...] 2) Zoste r Vaccines (1 of 2) [facility] Start: 01-17-2026 End: 01-17-2026 Patient encounter procedure 01/17/2026 3:15 PM EDT Office Visit [facility] [address] [place] [address] Dominick Barbosa MD [address] [address] [place] [address] [facility] Start: 06-05-2025 Influenza vaccination Influenz a Vaccine (Season Ended) [facility] Start: 01-11-2025 End: 01-11-2025 Patient encounter procedure 01/11/2025 3:00 PM EDT Office Visit [facility] [address] [place] [address] Dominick Barbosa MD [address] [place] [address] [facility] Start: 07-13-2024 End: 07-13-2024 Patient encounter procedure 07/13/2024 1:15 PM EDT Office Visit [facility] [address] [place] [address] Dominick Barbosa MD [address] [place] [address] [facility] Start: 06-05-2024 COVID-19 Vaccine () COVID-19 Vaccine () [facility] Start: 06-05-2024 Influenza vaccination [facility] Start: 03-09-2024 End: 03-09-2024 Patient encounter procedure 03/09/2024 2:45 PM EDT Office Visit [facility] [address] [place] [phone] Dominick Barbosa MD [address] [place] [address] [facility] Start: 09-02-2023 FUV, Provider: Dominick Barbosa, Status: Pen, Time: 2:45 PM FUV, Provider: Dominick Barbosa, Status: Pen, Time: 2:45 PM JM-Wbmkkvzdqvfpqn-[facility] 4100 Work Phone: Start: 09-02-2023 End: 09-02-2023 Patient encounter procedure 09/02/2023 2:45 PM EST Office Visit [facility] [address] [place] [phone] Dominick Barbosa MD [address] [place] [address] [facility] Start: 06-05-2023 COVID-19 Vaccine ( season) COVID-19 Vaccine ( season) [facility] Start: 06-05-2023 Influenza vaccination Influenz a Vaccine (#1) [facility] Start: 05-27-2023 POV, Provider: Dominick Barbosa, Status: Pen, Time: 10:30 AM POV, Provider: Dominick Barbosa, Status: Pen, Time: 10:30 AM KF-Ranuogjgxtqztk-Udfj [place] Work Phone: Start: 05-20-2023 POV, Provider: Dominick Barbosa, Status: Pen, Time: 12:30 PM POV, Provider: Dominick Barbosa, Status: Pen, Time: 12:30 PM OC-Isqryjldrlcmdj-Yrzu [place] Work Phone: Start: 12-22-2022 DTaP/Tdap/Td Vaccine s (7 - Td or Tdap) DTaP/Tdap/Td Vaccines (7 - Td or Tdap) [facility] Start: 2022 DTaP/Tdap/Td Vaccine s (1 - Tdap) DTaP/Tdap/Td Vaccines (1 - Tdap) [facility] Start: 03-07-2021 COVID-19 Vaccine (2 - Booster for Isaias series) COVID-19 Vaccine (2 - Booster for Isaias series) [facility] Start: 2018 Hepatitis C screening Hepatitis C Id hunter [facility] Start: 2015 HPV Vaccines (1 - Ma le 3-dose series) HPV Vaccines (1 - Male 3-dose series) [facility] Start: 2011 HPV Vaccines (1 - Ma le 2-dose series) HPV Vaccines (1 - Male 2-dose series) [facility] Start: 11-28-2004 Varicella vaccination Varicell a Vaccines (2 of 2 - 2-dose childhood series) [facility] Start: 2001 MMR Vaccines (1 of 1 - Standard series) MMR Vaccines (1 of 1 - Standard series) [facility] Start: 2001 Varicella vaccination Varicell a Vaccines (1 of 2 - 2-dose childhood series) [facility] Start: 03-23-2001 COVID-19 Vaccine (#1) COVID-19 Vacci ne (#1) [facility] Start: 2000 Hepatitis B Vaccines (1 of 3 - 3-dose series) Hepatitis B Vaccines (1 of 3 - 3-dose series) [facility] Start: 2000 HIV screening HIV Screening [facility] Start: 2000 Lipid panel Lipid Panel [facility] Start: 2000 Yearly Adult Physical Yearly Adult P hysical [facility] Comprehensive metabo lic 1999 panel - Serum or Plasma [facility] Comprehensive metabo lic 1999 panel - Serum or Plasma [facility] Patient Education Low back pain in adults [facility] Work Phone: [facility] Immunizations Immunization Date Immunization Notes Care Provider Fa cilinoe 09-23-2001 varicella virus vaccine Dominick Barbosa MD Work Phone: [facility] Work Phone: Payers Date Payer Category Payer [employer] [facility] Care [facility] [id number] 2022 Unknown 2022 Unknown [id number] 2019 Unknown [id number] 2000 Unknown [id number] 2.16.840.1.077195.3.579.2. 593 2000 Unknown [id number] 2.16.840.1.304076.3.579.2. 593 2000 Unknown [id number] 2.16.840.1.358500.3.579.2. 593 2000 Unknown [id number] 2.16.840.1.912898.3.579.2. 593 2000 Unknown [id number] 2.16.840.1.459136.3.579.2. 593 2000 Unknown [id number] 2.16.840.1.828877.3.579.2. 356 2000 Unknown [id number] 2.16.840.1.898333.3.579.2. 356 2000 Unknown [id number] 2.16.840.1.941043.3.579.2. 356 2000 Unknown [id number] 2.16.840.1.370528.3.579.2. 356 2000 Unknown [id number] 2.16.840.1.949813.3.579.2. 356 2000 Unknown [id number] 2.16.840.1.137833.3.579.2. 356 2000 Unknown [id number] 2.16.840.1.829315.3.579.2. 356 2000 Unknown [id number] 2.16.840.1.940620.3.579.2. 1244 2000 Unknown [id number] 2.16.840.1.380543.3.579.2. 1244 2000 Unknown [id number] 2.16.840.1.208462.3.579.2. 1244 2000 Unknown [id number] 2.16.840.1.926217.3.579.2. 1244 2000 Unknown [id number] 2.16.840.1.641041.3.579.2. 196 2000 Unknown [id number] 2.16.840.1.333550.3.579.2. 196 2000 Unknown [id number] 2.16.840.1.297061.3.579.2. 196 2000 Unknown [id number] 2.16.840.1.453831.3.579.2. 196 2000 Unknown [id number] 2.16.840.1.046155.3.579.2. 196 Self-pay Social History Date Type Detail Facility Start: 09-02-2023 End: 01-11-2025 Never a smoker Never a smoker DU-Afffidzthlaqij-Ks [facility] Work Phone: Start: 09-02-2023 End: 01-11-2025 Sex Assigned At [employer] Other Tobacco smoking status WIIS Tobacco smoking consumption unknown [facility] Work Phone: Start: 2000 [facility]: Start: 09-02-2023 Tobacco smoking status WIIS Never smoked tobacco [facility] Work Phone: Start: 09-02-2023 Tobacco use and exposure Smokeless tobacco non-user [facility] Work Phone: Start: 08-23-2023 End: 01-11-2025 Exposure to SARS-CoV-2 (event) Not sure [facility] Start: 2000 Sex Assigned At Male [facility] Start: 01-16-2025 Sex Male (finding) [facility] Functional Status Date Assessment Result Facility 01-11-2025 Patient Health [facility] ionnaire 2 item (PHQ-2) [Reported] [facility] Work Phone: Clinical Notes 09-04-2020 to 05-05-2025 Note Date & Type Note Facility 05-05-2025 Evaluation note Diagnosis Onset Date Resolution Hypertension acute May 23, 2025 2:56pm IFG (impaired fasting glucose) acute May 23 2:56pm Low back pain acute May 2:56pm Obesity acute May 23 025 2:56pm Wellness examination acute Augu 2024 2:56pm [facility] Work Phone: 1(473) 775-461105-12-2025 History of Present illness Narrative* Dominick Barbosa [...] 180 g, Rfl: 3 documented in this [facility] Work Phone: 1(889) 465-949104-14-2025 Evaluation note* Diagnosis Onset Date Resolution Status Admit Date Hypertension acute January 16, 2025 3:19pm IFG (impaired fasting glucose) acute January 16, 2025 3:19pm Low back pain acute January 16, 2025 3:19pm Obesity acute January 16 3:19pm [facility] Work Phone: 1(454) 712-835804-09-2025 History of Present illness Narrative* Dominick Barbosa [...] procedure below.) SINONASAL ENDOSCOPY WITH BIOPSY (CPT 03213-G): Due to the patient's nasal cavity / [...] Signature: Dominick Barbosa MD documented in this [facility] Work Phone: 1(871) 447-611710-09-2024 History of Present illness Narrative* Dominick Barbosa [...] Intermittent allergy symptoms History Of Present Illness: Wael Mi presents since last being seen March [...] procedure below.) SINONASAL ENDOSCOPY WITH BIOPSY (CPT 29641-M): Due to the patient's nasal cavity / [...] Signature: Dominick Barbosa MD documented in this [facility] Work Phone: 1(143) 172-365806-05-2024 History of Present illness Narrative* Dominick Barbosa [...] (Please see procedure below.) SINONASAL ENDOSCOPY (CPT 49426): To better evaluate the patient's symptoms, sinonasal [...] of Agustina Barbosa MD. [facility] Work Phone: 1(207) 676-463901-02-2024 Evaluation note* Encounter Date Diagnosis Assessment Notes [...] index [BMI] 50.0-59.9, adult (ICD-10 - Z68.43) [facility] Other 11-29-2023 History of Present illness Narrative* [...] (Please see procedure below.) SINONASAL ENDOSCOPY (CPT 25339): To better evaluate the patient's symptoms, sinonasal [...] free to contact my office by calling [phone] with any questions. Signature: Scribe Attestation By signing my name below, I, Reina Irvin , Scribe attest that this documentation has been prepared under the direction and in the presence of Agustina Barbosa MD. documented in this [facility] Work Phone: 1(411) 204-209008-11-2023 NotePost Operative Note: PreOp Diagnosis: Right sinonasal inverted papilloma, chronic sinusitis Post-Procedure Diagnosis: Same Procedure: 1. Right nasal endoscopy with total ethmoidectomy including sphenoidotomy with tissue removal CPT 73530-Z-25 2. Right nasal endoscopy with frontal sinusotomy CPT 14368-B 3. Right maxillary endoscopy with tissue removal 39606-C 4. Extracranial CT image guidance CPT 17083 Surgeon: Familia Resident/Fellow/Other Stone Carver: None Anesthesia: GET Estimated Blood Loss (mL): [...] middle turbinate was resected (more content not included)...[facility] 05-15-2023 Miscellaneous Notes* Op Note - Dominick Barbosa MD - 05/15/2023 4:37 PM EDT Post Operative Note: PreOp Diagnosis: Right sinonasal inverted papilloma, chronic sinusitis Post-Procedure Diagnosis: Same Procedure: 1. Right nasal endoscopy with total ethmoidectomy including sphenoidotomy with tissue removal CPT 78983-T-40 2. Right nasal endoscopy with frontal sinusotomy CPT 64008-Z 3. Right maxillary endoscopy with tissue removal 19481-Z 4. Extracranial CT image guidance CPT 16056 Surgeon: Familia Resident/Fellow/Other Stone Carver: None Anesthesia: GET Estimated Blood Loss (mL): [...] 17:00 by Dominick Barbosa) documented in this [facility] Work Phone: 1(144) 813-734508-11-2023 Note* Op Note - Dominick Barbosa MD - 05/15/2023 4:37 PM EDT Post Operative Note: PreOp Diagnosis: Right sinonasal inverted papilloma, chronic sinusitis Post-Procedure Diagnosis: Same Procedure: 1. Right nasal endoscopy with total ethmoidectomy including sphenoidotomy with tissue removal CPT 08650-L-09 2. Right nasal endoscopy with frontal sinusotomy CPT 07800-J 3. Right maxillary endoscopy with tissue removal 72873-V 4. Extracranial CT image guidance CPT 80145 Surgeon: Familia Resident/Fellow/Other Stone Carver: None Anesthesia: GET Estimated Blood Loss (mL): [...] Last Updated: 15-May-2023 17:00 by Dominick Barbosa) [facility] Work Phone: 1(503) 194-960808-11-2023 History of Present illness Narrative* Wale presents for his first postoperative visit following right-sided sinus surgery in 05/15/23. * Following his surgery he has done well. He has been having some headaches that are controlled with Tylenol. His breathing has been significantly improved. He is rinsing several times per day. He denies significant nasal drainage. DE-[facility]qckiqhthakvrf-[facility] 1692 Work Phone: 1(249) 248-498508-11-2023 NoteHistory of Present Illness: History Present Illness: [...] Completion Last Updated: 15-May-2023 11:51 by Dominick Barbosa)[facility]-20[facility] History and physical note* Dominick Barbosa MD [...] Last Updated: 15-May-2023 11:51 by Dominick Barbosa) [facility] [facility] Work Phone: 1(541) 205-815708-11-2023 History and physical note* Dominick Barbosa MD [...] 11:51 by Dominick Barbosa) [facility]: [phone]) [phone] Evaluation note* Encounter Date Diagnosis Assessment Notes Treatment Notes Treatment Clinical Notes Jan, Inverted papilloma of nasal cavity (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 Obstructive sleep apnea on positive pressure [facility]tpur[facility] [address] Work Phone: 1([phone]) 101-944304-04-2023 History of Present illness Narrative* Reason for visit: * W[place] patient presents since last being seen 01/06/23. * Wale presents for routine follow-up. He is interested in going forward with his inverted papillomaresection and would like to schedule it as soon as there is availability. [facility] Work Phone: 1([phone]) 494-962204-04-2023 History of Present illness Narrative* Reason for visit: * [place] patient presents since last being seen 01/06/23. * Wale presents for routine follow-up. 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 [facility] [address] Work Phone: [phone]) [phone] Evaluation note* Encounter Date Diagnosis Assessment Notes [...] for congestion, Tylenol for pain and fever. [facility] Other 12-01-2020 History of Present illness Narrative* [...] and is using flonase only as needed. [facility] Work Phone: 1([phone]) 583-581012-01-2020 History of Present illness Narrative* Reason for [...] More recently, he was seen by Dr. Goeva in regard to his sleep apnea and Dr. Govea recommended that he return to see me for repeat assessment of the papilloma. He is using Flonase as needed and at baseline is doing very well outside of some nasal breathing issues. [facility] [address] Work Phone: Evaluation note* Diagnosis Chronic ethmoidal sinusitis Benign neoplasm of middle ear, nasal cavity and accessory sinuses Benign neoplasm of nasal cavities, middle ear, and accessory sinuses Chronic sinusitis, unspecified documented in this encounter [facility] Work Phone: Evaluation note* Diagnosis Chronic ethmoidal sinusitis- Primary Other chronic sinusitis Chronic sphenoidal sinusitis documented in this encounter [facility] Work Phone: Evaluation note* Diagnosis Chronic ethmoidal sinusitis- Primary Chronic maxillary sinusitis documented in this encounter [facility] Work Phone: Evaluation note* Diagnosis Onset Date Resolution Status Bulging lumbar disc acute Elevated BP without diagnosis of hypertension acute Low back pain acute Obesity acute Wellness examination acute [facility] Work Phone: Evaluation note* Diagnosis Post-nasal drainage- Primary Other diseases of nasal cavity and sinuses Chronic maxillary sinusitis Nasal congestion Other diseases of nasal cavity and sinuses documented in this encounter [facility] Work Phone: Evaluation note* Diagnosis Onset Date Resolution Status Bulging lumbar disc acute Elevated BP without diagnosis of hypertension acute Low back pain acute Obesity acute Wellness examination acute IFG (impaired fasting glucose) acute Acute sinusitis noneactive [facility] Work Phone: Evaluation note* Diagnosis 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, middle ear, and accessory sinuses Chronic sphenoidal sinusitis Chronic maxillary sinusitis documented in this encounter [facility] Work Phone: Evaluation note* Diagnosis 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, middle ear, and accessory sinuses Chronic sphenoidal sinusitis documented in this encounter [facility] Work Phone: History general Narrative [...] ethmoidectomy 08/25/2019 Hospitalization History see surgical history [facility] Other History of Present illness Narrative* Wale [...] 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 [facility] [address] Work Phone: Reason for referral (narrative)No reason for referral information [facility] Work Phone: Summary Purpose Family History [...] Complaint and Reason for Visit Chief Complaint [facility] Reason for Visit Bulging lumbar disc Elevated BP without diagnosis of hypertension Low back pain Obesity Wellness examination Chief Complaint [facility] [phone] sinus infection Reason for Visit Bulging lumbar [...] and content) DATE CREATED AUTHOR 03/06/[address] [facility] DATE CREATED AUTHOR AUTHOR'S ORGANIZ ATION 11/24/2022 [facility] DATE CREATED AUTHOR AUTHOR'S ORGANIZ ATION 05/28/2023 [employer] DATE CREATED AUTHOR AUTHOR'S ORGANIZ ATION 06/05/2023 [facility] DATE CREATED AUTHOR AUTHOR'S ORGANIZ ATION 02/14/2025 [facility] DATE CREATED AUTHOR AUTHOR'S ORGANIZ ATION 03/01/2025 [facility] REASON FOR VISIT (unrecogniz ed section and content) Reason Comments Other Right endoscopic sin us surgery with image guidance, right endoscopic medial maxillectomy, septoplasty Reason Comments Follow-up Care Teams (unrecognized sec tion and content) [employer] Supervisor Relationship Specialty Start Date End Date Enzo Coleman DO PCP - General 09/21/19 [employer] Supervisor Relationship Specialty Start Date End Date Enzo Coleman DO PCP - General 09/21/19 [employer] Supervisor Relationship Specialty Start Date End Date Enzo Coleman DO PCP - General 09/21/19 Cristiana Triplett, [employer] FORMER-DIRECTOR [employer] [id number] [place] [address] PCP Dmitry MILLERO PCP 09/04/23 Team Status: Active Member Role Status Dates Enzo Coleman DO Primary Care Provider Active Team Status: Inactive Member Role Status Dates Enzo Coleman DO Primary Care Provide r, Attending Provider Active Start: June 03, 2024 End: June 03, 2024 [employer] Supervisor Relationship Specialty Start Date End Date [place] [...] January 16, 2025 End: January 16, 2025 [employer] Supervisor Relationship Specialty Start Date End Date Enzo [...] BE BASED ON THE PRIMARY CLINICAL RECORDS. [facility] [employer] [facility]. provides no warranty or guarantee of the accuracy or completeness of information in this document.
[2025-07-10 08:42] VITALS: BP 146/89; PULSE 98; TEMP 37.1
[2025-07-10 09:38] VITALS: BP 114/60; PULSE 89; O2SAT 94
[2025-07-10] MEDS: 0.9 % SODIUM CHLORIDE 10 ML SYRINGE - SALINE FLUSH INJ (09:39)
[2025-07-10] MEDS: METHYLPREDNISOLONE ACETATE 80 MG/ML VIAL INJ (09:40)
[2025-07-10] MEDS: BUPIVACAINE HCL 0.25% PF 25 MG/10 ML VIAL INJ (09:40)
[2025-07-10] MEDS: LIDOCAINE HCL 2% 400 MG/20 ML MDV INJ (09:40)
[2025-07-10] MEDS: IOHEXOL 240 MG/ML - 10 ML VIAL INJ (09:40)
[2025-07-10 09:41] VITALS: BP 114/64; PULSE 64; O2SAT 95
--- NOTE | 2025-07-10 09:54 | P.ON_ITS ---
Date of procedure: 07/10/25 Pre-op diagnosis: Pain due to lumbar stenosis with neurogenic claudication Post-op diagnosis: same as pre-op Procedure: Procedure: Left L4-5, L5-S1 transforaminal epidural steroid injection Medications: Bupivacaine 0.25% 2cc, lidocaine 2% 1cc, depomedrol 80mg The patient was seen and examined in the preoperative holding area.? Informed consent was obtained and placed on the chart.? Patient was brought to the medical procedure unit and placed in the prone position where a timeout was completed verifying the correct patient, procedure site, position, and planned special equipment using sterile aseptic technique.? Under direct fluoroscopic visualization a 25-gauge Quincke tipped spinal needle was advanced to the designated neural foramen where contrast dye was injected to show adequate spread.? The needle was inserted at level left L4-5. There was no evidence of vascular or adverse uptake.? Epidural spread was appreciated.? The above- mentioned injectate was then placed in a 1.5 mL aliquot preceded by negative aspiration.? The needle was removed. The needle was inserted and the procedure repeated at level left L5-S1.? The surgery site was covered.? Patient was taken to the postprocedural recovery area and monitored for an appropriate length of time before found suitable for discharge in the accompaniment of a responsible adult. Anesthesia: Local Surgeon: Ruth Pfeiffer Pathology: none sent Condition: stable Disposition: no change
== END 2025-07-10 09:47 | disposition home or self-care (01) ==
PROVIDERS: Family Provider Internal Medicine; PCP Internal Medicine; Visit Provider Anesthesiology
DX: M48.062 Spinal stenosis, lumbar region with neurogenic claudication (principal); M54.50 Low back pain, unspecified; E11.8 Type 2 diabetes mellitus with unspecified complications; Z79.84 Long term (current) use of oral hypoglycemic drugs
CPT/HCPCS: 36415; 64483; 64484; 82948; J0665; J1010; Q9966

== ENCOUNTER 2025-07-19 15:06 | Outpatient (OUT) | payer BC, SELFPAY ==
--- OUTSIDE RECORDS SUMMARY | 2025-07-19 15:09 | XMS_ITS | CCD ---
Author Organization [facility] CliniSyoh Care Team Providers Care Funeral Director/Embalmer/Owner Name Role Phone Virginia Enzo Segovia Unavailable [...] gutierrez Barbosa, Dr. Dominick Talavera Referring Dolly gutierrez Vasques, Dr. Enzo Diallo Primary Care Dollyshilpi beaulieu Virginia SHER, Enzo Diallo Primary Care Provider U oksanaaildinah Virginia SHER, Enzo Diallo Primary Care Provider Enzo Vasques DO Primary Care Provider Meeson MACHINE PROGRAMMER-SR TECHNICAL SALES CONSULTANT, Cristiana Jose Unavailable [phone] Enzo Vasques DO Primary Care Provider Virginia SHER, Enzo Primary Care Provider Enzo Vasques DO Attending Provider DOMINICK BARBOSA Attending Unavailable ENZO VASQUES Primary Care Unavailable DOMINICK BARBOSA Attending Unavailable ENZO VASQUES Primary Care Unavailable DOMINICK BARBOSA Attending Unavailable ENZO VASQUES Primary Care Unavailable Giashelyitis , Andanita Durán Attending Unavailable Giedraitis , Andrius Luis Armando Attending Unavailable Giedraitis , Andrius Vlyn Attending Unavailable Giedraitis , Andrius Vlyn Attending Unavailable Giedraitis , Andrius Vlyn Attending Unavailable Allergies Allergy Classification Reported Allergen(s) Allergy Type Date of Onset Reaction(s) Facility (8 sources) bee pollen Allergy to substance (finding) -Otolaryngolog [facility] Work Phone: (1 source) patient allergy list reviewed by nurse or physicia Propensity to adverse reactions Comment:Done [employer] Other Medications Current Medications Medication Drug Class(es) [...] 850 mg tablet Active 0 .ROUTE .COMPLEX February 14, 2025 6:46am TAKE 1 TABLET [...] [place] on 01-18-2025 Laboratory comment Pasquale (Report) i1ixqCXpPMXum4dxYAHgoOFcC zEwMzNcZnRuYmpcdWMxIHtccn KkTIebx8NwY3GcCcLwHNwlzaM pQYIvKapjbaciAYCiHWX5sqSh MSUcMEolAWKnWFjnWt9cdJDub CkdVaXlNPPvq5kyzpVBJSsqXT XCJCq3c3uwGKXnQaK3hVHiAMb aB1febtJtiFNkO2Spu5InIKp2 wU10SUUlyV9kuSUfCVzjkeJdD hK5QMvhBLBtUbY3LTCysJLsNL NsK4zcGVIkNPmmKDBcLIyqfQZ qSHR6hEazn7I9pBHxqQWhvHzn IyQvTkQpRmWPf1PhTPp8aKqhT 8ImKZLkOpS2wTDzBISkVKhlJZ DaIBMkyiG3mY66WGcmgkP2qMM ff9Myr33hs155rT0ouBZxNSC4 WWUaONZhsAOlUFZkSQD3ROLcb VGcC2ujYvTmnCFnM8OtHbTjdM WyR8CsOdJwcOThH2VhMaHeoJX oXTJwgAB3HYjbm562YEK6JcFt FC7zS1Ynd5V9xM3heBZoGXRrn XStKwHfTRLjpc8znCLgXWedl4 VcUJL7tqI3mXImeMHdWKAmPA8 4Zfdzh9EuKawkIUO5DQDldhAt a2Cdk6fpSsXgheBfK3fcU1NnO NZjJJEdQPBwRaQkoeRyk4Xqj4 ErvSWerPy1s3ajIJVqZOXnoZe kr1juVHX2TBPiE7J1zAZnr1kd XTfcKADamGZ6yzP9YUmpEDCrj sC3vyU3HKvlVCPfzYW6vtF7FM wvATCbCgX0msC3ZGogQZYbGDT 4NmQtWRIsi9RyyilnOyXsh9Yy nLVzVRzqJ41br696WFMyqcShV 1xwbGFpblxwbGFpblxmMFxmcz P5XJEpLHAuOYwrQJArDKDpSmZ cbGFuZzEwMzNcaGljaFxmMVxk AfCcYPZvFSfkR3piVbTuJjLxV PREiBU0kWJsq5gvnnS6kYZkXL 2rJDCqlZZraeMpg4L0UKU4kTK vmX1xyPYyIPFufKDoqtJwqy46 rJSvyFH8AHVzESKcwEPxyS4gZ TYoPOLSbC9viEPUyhUcpfSbVZ YrkNzduh7VqVUfbi6mkMDfV2Z ydGlmaWVzIHRoYXQgdGhleSBo YNRrHPTjrdjjw7VjRRIhqZWiS 6CmAZ2pVLRsrt15 [facility] Work Phone: Pathology report Cancer Narrative Surgical Pathology Case: [id number] Authorizing Provider: Dominick Barbosa MD Collected: 01/11/2025 1620 Ordering Location: [facility] Received: 01/11/2025 1620 Pathologist: Claudio Ireland MD Specimen: SINUS MASS RIGHT [facility] Work Phone: Pathology report final diagnosis Narrative k0aukMShXZPcuNVnIOEkKMwgd rIyFRKtnUOzU1WcnbknCUxmSR 1aXW6wtTamcKLrhVWdJCWzSyF cp5yhh758uZSnn8ciYVNDustp pJw3nPwpA11jy9M2XsmiH2nbO CBsOIleYBBgAFgkxAUyMRk2OK BhcGVydzEyMjQwXHBhcGVyaDE 7FNMkMV4qgpqmUYaiLTaoHEZd fpT0UYGunIGiT9KzPALqBB2jd tmwTSV1VUqdZNLhJVS8HoEeEA Paf6Gxvhl0CjUjlWm0l7exZCH gAPOjlBjus4uiMWW7PFRwtQLo X5vrnO6xMJYgDM8yscymk2upW YfbFFybUDIcoIK6gcY6NZHgmT QtB7JqpU7fDWFeKNVmenRraSa bmJ3dGqDdJkhaGaTxZwndeTVn z6dunVVzjBRmlhsuqWZiCOQeI MBgzBTpA6zbo60yz4AcEGIsuS reqP6jBHpgzC46XND4SMMobFv fTLtdpJ21v3x3lI3pTBDgZLqy RgzxlW6qaK4jgHVbtZ7wplTtJ ObkqG6owPWiBHWmfbsmqrMnq7 qsNW8fJKocM6tlD6JiPSMoYBu tpXmdb3woAA6nYIbaskIdmPGr MACphjQuzz3lNBRrOFBwiKlmt WRfAbdqHANiLE0nRAUwUCOVn9 K8mM1rMS3qNVDddcTqy8u6tQQ ogbFntFuvqAQgF6ZrbGHwKHWl w2anF4krXXRnklJerragIwfoJ BOmdHPaKTryi9muCDX5 [facility] Work Phone: Pathology report gross observation Narrative k0yapMYnZEYqpTTGXUI8FHMjQ K1euJtdnEm6nRhtDZLpzhU1mV PpIWaxe1rkSFN8g0hdfxAEXbk xHNOnHV8uNThxGEOeOO6fMdBf XGRlZmYxXHBhcGVydzEyMjQwX DVeiQJbkCZ4DMHeJE5bhlfwYI syHRptCDUdiaH7MERxqRLtM4A fOPAvCP3vxaapXKA1MZZGRsax Cp5brPXxzNBLAtzvZuYxLpGuM PKxFBEaOYZbv7zppdYEMPmoAR PAMSl3BPd4GIZuCQGljQKmn9S 4DArpr4pnl2ItJXNmQLp3eU8G SkkbFQM4AIMWDyxqVzofwBaul 2VjdCBcXHNnIFxcaWQgNTEwMD RoSZspLmUNKfLcOpZnIdo2NPR 7EBYaMXi8UCgnPyADHRKhTEZ0 CCBoQAk2HMuyGVkisGGtCJFcH NOzMTKpCHrwdqS4x9tvGGCkmQ GxWYH2QLwky3xfZWcwNBP2WQV zLrStNUMxBJ3UAoGzHBK2NCI1 JJb5KeT0PPv6AHEYAtCxJeTcO Uv3HtQ8DgYcSCc2ZCx4SQfXHo RuKWzcZBa4NHS0UYA0JdD3JJt xautjTAm4CAXcEEacbdRxLHly MkegVKcpD10hsIXiTETGLbviq GFpblxlcGljTmVzdERvYzEgDQ uivGDorCTsUI3GNRj0wzJsDZW tMBKfRoKjKaTaQIx5RTNjqT3s Ls2acHPiwG1bTLrlVzZxSFQem 8p0rMX6yKWwbBN6bENtxKlfST 5tbPTkYZ0mEYrul2JdxBQfYN4 7bHNzdpPwxdVhZqNyniXaEV8f d7UncdmpqBDyIVZwvlOcHRAog Bxqs0huCPEdT79esuThz2WooN SkCRxskIFyATRiGvVnoMmdx0E yLA4pCXF2mjiwBxEfWuTuuFNj EntwrKKwVbxmR88wDWBAoCHvj XAfu9AmLTOgtPHyY1krBT3pJX Mow2NdxDvedlVfupBsadefBAM bmMGxPQYuTBO5nDJle2YwC6sj ZD0bhMXsRdjmRBT6WSYgZTABr LDin6ZpW3hmDY8smQOgSG24sA YqnTjke6BqmWx3cTHyXQjmDH9 tLTQoQBCeBMZ5AQ7suCIrQA5O SXVgSlMeDXSqF6svGMVyNO4FZ 88UTBfmKZQiX80sw2DXn3Egs4 belKzxg1PdoQFrVK92XSUrtOD rUBU7GW7snJaiRBXePNynwODp ZCANClxwbGFpbiANCn0= [facility] Work Phone: Pathology report relevant history Narrative q8tjvSAaTOPpo6kqQVJluEIfP eLxYpAeKwLkFou0WUQfunJ0Vo h6GXCwJNineI5lCTOxPOlgE0p xhwAtoOHbXBZiJQs6jQ0kjEbq hU6mXuObWyHlLSCZtGgadh8cD VXpZQEervTfcOUnd8zeNRXfpV == [facility] Work Phone: [facility] Work Phone: Surgical pathology studyon 0 01-11-2025 Surgical pathology study Pathology report.total SEE COMMENT Surgical Pathology Case: [id number] Authorizing Provider: Dominick Barbosa MD Collected: 01/11/2025 1620 Ordering Location: [facility] Received: 01/11/2025 1620 Pathologist: Claudio Ireland MD [...] specimen is entirely submitted in one cassette. [facility] Surgical pathology studyOrde red By: Shakir Ford on 07-19-2024 Laboratory comment Pasquale (Report) f4lgvDQuGIMkl1ijZNKufYOxD zEwMzNcZnRuYmpcdWMxIHtccn MrPQoto6IiL3RmQxNfHTwsmzV rDNFeUijogoovGZNfIEC0tuUz OPNyHTsbZNGiUHntMr6tmFRtt KntZmDwTELdp9rxfcZBUIguJP KGOGo3a1foDZUuNgL1iBUqLBe cM2hsbyCcfRIeN7Ecx3VyJIi9 qZ75LPGdaN2csOXhLAeroeIqB vY9YFnnGPZsLtH2QRBmuGOgLU MpT8fvWPQbBMfxGEJzLGjuxLR uPKX9tSnpj0O2qIKheZTvrIzc DaWiIiUiEpLIl5KoYIg2vWgtI 5TxSYFiDkO0qJHlTGPzECbnBH NwDGNbsgA0yS86JXzcwdT0iTB he4Jra95xu394sZ6pvEBfCYB4 LCWjCMNepFGmZKOaFJJ6VICqg GOaC7trPwDmyMMvB7OuXoPutV HkQ4DyEcZrtZAbU3WvRuVxoHB rXPYioCC0UJgbt400RUK3GaYc AB3eT0Rrt5X2tT3rlPTaVLAsz WTaEzIpVWQcbh6ggUOmCEnun1 LgEZT6ubW7eBNouASbVKWxCT4 8Odujg9EiSkppQPQ3CZRwjcTi m7Vlm6bgRuQurfExH2pjO7XvF SPlFMRmZFEdDoWdecUvj4Rjr5 AijNZcgNy5p5heIILaJAAstXw xr2rzBBY3OEJdV6G2iTEdh0xr NRytSJRqnAU5oxI0DOpxZHJti eF5vxS6OEwzXUMjoKL3ymS4WT jwVADfXxE7qlJ4YQxfYVIpZED 8PgEsCWYji2SvhfoqSfYlj2Rw lZEeSZnqH65zz603RPYdwiYnQ 1xwbGFpblxwbGFpblxmMFxmcz E1NRFfPNIlXInbXUGeREYsKsM cbGFuZzEwMzNcaGljaFxmMVxk ZtYnNHJeKYjvD2gbIqLtRjBpW EQMvFD2xMHbm8epqwH2bFJsES 5pAVDoaPEfmzFln3Z3AVY3aVF ntW4tqKAzTNIwoJYytfRdtq74 mPPloGE0EEPmTQIlaEUlfB7jP EYcTVUJcR8boGQStsEsgxGoOD OopSvjvd6IvRMymh0tkAQkO0Q ydGlmaWVzIHRoYXQgdGhleSBo DZCjSREywizfu5FpGZBmnSTxO 6BwSL3lHRVxdy73 [facility] Work Phone: Pathology report Cancer Narrative Surgical Pathology Case: [id number] Authorizing Provider: Dominick Barbosa MD Collected: 07/13/2024 1405 Ordering Location: [facility] Received: 07/13/2024 140 Pathologist: Shakir Ford DDS Specimen: NASAL MASS RIGHT BIOPSY [facility] Work Phone: Pathology report final diagnosis Narrative r7nxcQEvSFIwkHTyACniUypsg nKlTKLleFUkU0CgdtikAYlfWF 7dDC2erFqchWVcsTHtWOCdRnO ug2tof505aWTox8pkWGDFklfk nBp2bCliR64xu3D9FyveG3sgL VBkWRryROInXMwwlWBoMRo8ZK BhcGVydzEyMjQwXHBhcGVyaDE 7FPTqCA5ozhzePAbyZHaqQHMy edU5KPUcsGExZ5GmIXMyYX9cw qwsWHM9UIclBSBgWEB5EbHiAD Yfx3Rbqml9TnUpxQe2e6crJTE rCAMzlAeyf6vdJEP1TUDqnBRq V7sjuN5oMSDrNU2afzdza6nmM UtaZHqgUBHkdCE0qxV2YJNuiC RdO8ZnoT2bBOAbPISujxHhrDr jiF8zUdBmUsseApQmOzMaIHup T2O6mVJ6RYJjcLxfgOJjTTWmE EXocE7we7g9FLHuurueaqWte4 vdIBZlwp6iKNWzeEJgmZFuk2D gRE7oYXPfcg8wvVVjvZ3leAPj sRY3zU9uFFtxnQrnNYDmdVV1r 5KbGAJ9sp6cGMgcV14cc5bqjO GbvUF4gSWiIAMvit8bICGvzNZ kbrDoPP8gYBAhqkicaN7riDPw XHBhcn0= [facility] Work Phone: Pathology report gross observation Narrative v7oxnUFmBQCpoHAUMRU4QHYcM U3yxIxqdOh4lEiaIXYdirJ0tO LpDWstc2raXJB1o6wmfpBYLor sITNmDL9nDOlmJWQhUI7eAfJf XGRlZmYxXHBhcGVydzEyMjQwX VDwaUExhCS1MEXkGB0cniurEZ shDGwaKDFkesU1OFQchFPaA4I nIFHdIY0tszxuTZB7JXJITpnq Du5euOAdeNOADibaLkLlLhDuG NHeXJFiTYMrj1kxxcQADIhqPF FMYXm6FQi8THQbADPwxQVvl2X 3GBvhr6wbj0WmBQKaFLq8mQ4Y SdouZKI1WEZGAqpyXptatZysj 2VjdCBcXHNnIFxcaWQgNTEwMD UePAjsPkUAAtFrTfSxVNE3BVk 2AuApIWr3UYvdQcXKAKE7VDu2 NtewNLg2JAbjDRvscLSeHRBuS CVaHEQlCNmpuoM2g7xvJPCjsB EnTMJ7EWbpt5wnLVswNWQ5HHK eNePhSMSbEI1KZnJpMRJ8HvQ7 CaxvGtN3QKr8DQXHSaVoEhYaG BKdOzq0JMkqVYo5FHu3TCcPLk YbWWW1YzOaPVHfWEY5DDR1DJs zarytIYc2ZOXgILbydaJvTPho IonuRWpiC51fyAQmNNMXMkfrp GFpblxlcGljTmVzdERvYzEgDQ rwqSCtyVCsXY2SAOn3zpWvFPH iDPVmOlRpHBclIlVkFPf5BJGu kV7eWb2ygMKkbW9bGGmiHrSeR WVhp8j5cNO5zTPscCA6pHYesI dtXW3zzVZdIO1jHIdlw9DraOW zVB69dFMdcgSlkdMuKn8hc7Hy WN8px7UvPfnaoZN9HJIgE1z0A ivrAWSfRZ97tYBbnAtqYUKjkv CuW9ArVKDfa2RjtJTqfREmo4D gdGFuLXdoaXRlIHNvZnQgdGlz x6HdIQCjU5LvG7H4iS6fUHGhQ PXvTXW4DYNvYzN2WWKiGXCjhE 9eYYFgVEZxcWEnhU6dkrBruzE uzVAvnAG8GMKovU0kkS28djKd lbJwryOmF6Yfr3D9vKYjLSGle gRUYbgdIAYoRZJubFCHy7TkHA UVEiNIAm7UIZGaeJSDKFV6CA0 aBPvjTAHnU9ThG3YdtxK3w8jw pNcbg0ImxRWgTX9xzLCzOB7ZX HKqjdDvBMmgmWtmaS5hIRq4 [facility] Work Phone: Pathology report relevant history Narrative g9feyFTrWWQes1acJRBimYZiU hPkRoMmFlDzRxb0YGElyvP6Of a2RJQjXBsslV3aTITbBZtvR6q kxoHjgUCxSFWqXUp0zU0zwZzk rO6zAnMdInEoGNIznNOeyvvcZ Z7vsBobyYQkxIEsxI06q8a8pK NccGFyI0= [facility] Work Phone: Resident Review h2svjTDhQNJlxFXrPXmk Mlxhb nZfKYBeuAUkD2YubjpgHAptNO 0eMY6eeEuhwLCbmJUoPEOyKnA st0bes358wQPuu2lwUQCYeimy eKl8xYinV26xk6L3TwoiR09dh ELaLOZ9RUCnAGOqgHByVZWyWO D8OZFiqYLiD9mvLWVdRA7vrao fEAmwAHdvPFVorCV8HMLclWXp A3TiEMZpTFiwOCAvrcz4WbDnT u1syPAuaSqnSEcgRGHnAXXiTE irSAXlUkAtBYueMKebn7KyKDG kYU8ghcHnqFFlo0Iqs3AuRyBr aU0qfY8twwX2JAXvIWZdklsty 5ChNGqfMQZvbyp5wzR9oE3mII xlcPtcrOE8oY7kp8s1PDYid5r eWE21XLWJIB9npYThE3HusC6k DXNCAR1hhGSdVUEfbtUhaTZmn Q== [facility] Work Phone: [facility] Work Phone: Basophils Auto (Bld) [#/Vol] on 06-08-2024 Basophils (Bld) [#/Vol] 0.1 10 3/uL 0.0-0.1 [facility] Basophils/100 WBC Auto (Bld) on 06-08-2024 Basophils/100 WBC (Bld) 1.2 % 0.2-2.0 [facility] Cholesterol in LDL Calc [Mas s/Vol]on 06-08-2024 Cholesterol in LDL [Mass/Vol] 66.0 mg/dL [facility] Comment on above: <100 mg/dl NKOLQWR51 0-129 mg/dl NEAR OR ABOVE DUCSVEO418-713 mg/dl BORDERLINE BOSY533-323 mg/dl HIGH>190 mg/dl VERY HIGH Cholesterol in VLDL Calc [Ma ss/Vol]on 06-08-2024 Cholesterol in VLDL [Mass/Vol] 43.0 mg/dL [facility] Eosinophils/100 WBC Auto (Bl d)on 06-08-2024 Eosinophils/100 WBC (Bld) 3.1 % 0.9-7.0 [facility] Erythrocyte distribution wid th Auto (RBC) [Ratio]on 06-08-2024 Erythrocyte distribution width (RBC) [Ratio] 13.0 % 11.0-15.0 [facility] Estimated glomerular filtrat ion rate (GFR) non- Americanon 06-08-2024 GFR/1.73 sq M.predicted among non-blacks MDRD (S/P/Bld) [Vol rate/Area] mL/min/{1.73_m2} >=60 [facility] Globulin Calc (S) [Mass/Vol] on 06-08-2024 Globulin (S) [Mass/Vol] 4.1 g/dL [facility] Glucose mean value [Mass/vol ume] in Blood Estimated from glycated hemoglobinon 06-08-2024 Average glucose Estimated from glycated hemoglobin (Bld) [Mass/Vol] 128 mg/dL [facility] Hematocrit Auto (Bld) [Volum e fraction]on 06-08-2024 Hematocrit (Bld) [Volume fraction] 45.3 % 42.0-54.0 [facility] Hemoglobin [Mass/volume] in Bloodon 06-08-2024 Hemoglobin (Bld) [Mass/Vol] 14.6 g/dL 14.0-18.0 [facility] Laboratory - Chemistry and C hemistry - challengeon 06-08-2024 Albumin [Mass/Vol] 3.6 g/dL 3.4-5.0 [facility] ALP [Catalytic activity/Vol] 86 U/L 46-116 [facility] ALT [Catalytic activity/Vol] 46 U/L 16-63 [facility] AST [Catalytic activity/Vol] 27 U/L 15-37 [facility] Bilirubin [Mass/Vol] 0.5 mg/dL 0.2-1.0 [facility] Calcium [Mass/Vol] 9.3 mg/dL 8.5-10.1 [facility] Chloride [Moles/Vol] 100 mmol/L 98-107 [facility] Cholesterol [Mass/Vol] 147 mg/dL <=200 [facility] Cholesterol in HDL [Mass/Vol] 38 mg/dL Low 40-60 [facility] Comment on above: > or =60 mg/dl - LOW CARDIOVASCULAR RISK<40 mg/dl - HIGH CARDIOVASCULAR RISK CO2 [Moles/Vol] 28.7 mmol/L 21.0-32.0 [facility] Creatinine [Mass/Vol] 0.93 mg/dL 0.70-1.30 [facility] GFR/1.73 sq M.predicted MDRD (S/P/Bld) [Vol rate/Area] mL/min/{1.73_m2} >=60 [facility] Glucose [Mass/Vol] 121 mg/dL High 74-106 [facility] Potassium [Moles/Vol] 4.2 mmol/L 3.5-5.1 [facility] Protein [Mass/Vol] 7.7 g/dL 6.4-8.2 [facility] Sodium [Moles/Vol] 138 mmol/L 136-145 [facility] Triglyceride [Mass/Vol] 215 mg/dL High <=150 [facility] TSH Qn 3.486 m[IU]/L 0.358-3.740 [facility] Urea nitrogen [Mass/Vol] 16.0 mg/dL 7.0-18.0 [facility] Urea nitrogen/Creatinine [Mass ratio] 17.2 mg/mg [facility] Laboratory - Hematology and Cell countson 06-08-2024 HbA1c (Bld) [Mass fraction] 6.1 % 4.5-6.2 [facility] Comment on above: ADA RECOMMENDED LIMI T 4.0 - 6.0ADA THERAPEUTIC TARGET < 7.0ACTION SUGGESTED> 7.0 Immature granulocytes/100 WBC (Bld) 0.3 % 0.0-0.5 [facility] Leukocytes [#/volume] correc giselle for nucleated erythrocytes in Blood by Automated counon 06-08-2024 WBC corrected for nucl RBC Auto (Bld) [#/Vol] 7.2 10 3/uL 4.0-11.0 [facility] Lymphocytes Auto (Bld) [#/Vo l]on 06-08-2024 Lymphocytes (Bld) [#/Vol] 2.3 10 3/uL 1.2-3.8 [facility] Lymphocytes/100 WBC Auto (Bl d)on 06-08-2024 Lymphocytes/100 WBC (Bld) 32.3 % 20.5-60.0 [facility] MCH Auto (RBC) [Entitic mass ]on 06-08-2024 MCH (RBC) [Entitic mass] 29.0 pg 25.9-34.0 [facility] MCHC Auto (RBC) [Mass/Vol]on 06-08-2024 MCHC (RBC) [Mass/Vol] 32.2 g/dL 29.9-35.2 [facility] MCV Auto (RBC) [Entitic vol] on 06-08-2024 MCV (RBC) [Entitic vol] 89.9 fL 80.0-94.0 [facility] Monocytes Auto (Bld) [#/Vol] on 06-08-2024 Monocytes (Bld) [#/Vol] 0.4 10 3/uL 0.3-0.8 [facility] Monocytes/100 WBC Auto (Bld) on 06-08-2024 Monocytes/100 WBC (Bld) 6.1 % 1.7-12.0 [facility] Neutrophils Auto (Bld) [#/Vo l]on 06-08-2024 Neutrophils (Bld) [#/Vol] 4.1 10 3/uL 1.4-6.5 [facility] Neutrophils/100 WBC Auto (Bl d)on 06-08-2024 Neutrophils/100 WBC (Bld) 57.0 % 43.0-75.0 [facility] No Panel Informationon 06-08 Eosinophils # (Auto) 0.2 10 3/uL 0.0-0.7 [facility] Immature Granulocyte # (Auto) 0.02 10 3/uL 0.00-0.03 [facility] Platelet mean volume Auto (B ld) [Entitic vol]on 06-08-2024 Platelet mean volume (Bld) [Entitic vol] 10.0 fL 9.5-13.5 [facility] Platelets Auto (Bld) [#/Vol] on 06-08-2024 Platelets (Bld) [#/Vol] 355 10 3/uL 150-450 [facility] RBC Auto (Bld) [#/Vol]on RBC (Bld) [#/Vol] 5.04 10 6/uL 4.70-6.10 [facility] Serum or plasma albumin/glob ulin mass ratioon 06-08-2024 Albumin/Globulin [Mass ratio] 0.9 {ratio} [facility] Serum or plasma anion gap de terminationon 06-08-2024 Anion gap [Moles/Vol] 13.5 mmol/L [facility] Serum or plasma total choles terol/high density lipoprotein (HDL) cholesterol mass maria luz 06-08-2024 Cholesterol.total/C holesterol in HDL [Mass ratio] 3.9 {ratio} [facility] Comment on above: 3.3 - 4.4 LOW [...] reviewed this case. Diagnostic interpretation performed at [facility] [id number] [place] [address] Clinical History: Physician Contact Number: [phone] Fixative (A): Saline Fixative (B): Saline Clinical [...] specimen is entirely submitted in 7 cassettes. [facility] B: Received in formalin, labeled with the patient's name and hospital number and B, microdebrider contents , are multiple, irregular segments of blood and soft tissue aggregating to 5.4 x 3.7 x 1.5 cm. [facility] sections are submitted in 8 cassettes [facility] Note: Per the pathologist, the rest of specimen B is submitted in toto in [address] [facility]/05/19/2023 [facility] Department of Pathology [id number] [place], [place] [id number] 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 Please feel free to contact my office by calling [phone] with any questions. Provider Impressions 1. 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 Please feel free to contact my office by calling [phone] with any questions. Provider Impressions 1. Inverted [...] day Tylenol TABS Vitals Vital Signs Recorded: [id number] 07:57AM Height6 ft Fisdjw578 lb 8 oz BMI Amtpelhzeh37.81 kg/m2 BSA Calculated2.89 Tobacco Useb) No Falls [...] (Please see procedure below.) SINONASAL ENDOSCOPY (CPT 47032): To better evaluate the patient's symptoms, sinonasal [...] May 27 2023 8:22AM EST (Author) Normal [facility] Tobacco Screening.on 023 Fall risk assessment a) No falls within the last year [facility] Work Phone: Tobacco use status [facility] b) No [facility] Work Phone: Established Visit (Otolaryng ology)on 05-20-2023 Established Visit (Otolaryngology) Diagnoses/Problems Chronic ethmoidal sinusitis (473.2) (J32.2) Chronic maxillary sinusitis (473.0) (J32.0) 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 Please feel free to contact my office by calling [phone] with any questions. Provider Impressions 1. 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 [...] TIMES DAILY NEEDED. Vitals Vital Signs Recorded: [id number] 12:20PM Height6 ft Tvgrqi860 lb 3.2 oz BMI Wxrsntjudc30.31 kg/m2 BSA Calculated2.91 Tobacco Useb) No PHQ-2 [...] (Please see procedure below.) SINONASAL ENDOSCOPY (CPT 48709): To better evaluate the patient's symptoms, sinonasal [...] May 20 2023 1:59PM EST (Author) Normal [facility] Tobacco Screening.on 023 Adult depression screening assessment No [facility] 4100 Work Phone: Fall risk assessment a) No falls within the last year [facility] 4100 Work Phone: Tobacco use status [facility] b) [facility]: No Panel Informationon 05-15 [facility] 4100 Work Phone: Order Reconciliationon 05-15 [...] Assistance Level: (more content not included)... Normal [facility] Patient Profile - Preop v3on 05-15-2023 Patient Profile - Preop v3 Patient Profile - Preop: Initial Info: Patient DemographicsName: WAEL GREY Date: 2000 Address: [address] [place] [address] [place] [address] Primary Phone [phone] How to be AddressedDylan Spoken Language PreferredEnglish Stated Reason for Admissioninverted papilloma Primary Contact Name and Numbereve Stern [phone] Limitations on Visitors/Phone Callsnone Medications Brought to Hospitalno General Health: Weight in kg185.1 kilogram(s) Weight in jmu229 pound(s) Height in feet5 feet Height in dvhujw94.97 inch(es) Height in cm182.8 centimeter(s) BMI (kg/m2)55.392 square meter Patient or Family Member Reaction to Anesthesiano previous reaction Blood Avoidance/Restrictionsnon e Previous Transfusion Reactionno Health Mgmt: Symptoms/Conditions Managed at Homerespiratory Respiratory Symptoms/Conditionssleep disordered breathing Barriers to Managing Healthnone Relationship/Environ: Lives Withparent(s) Living Arrangementshouse Living Environment Commentsmom Resource/Environmental Concernsnone Anticipated Transition [facility] Anticipated at Transitionnone Tobacco Use: Tobacco Useno Additional Information: Information Review: Allergies, Home Meds and Significant Events have been Reviewed and Verified with Patient/Familyyes Allergy, Intolerance, Adverse Event: Allergies: No Known Allergies: Active Significant Events: 15-May-2023 sleep apnea: Past Medical History, Active Electronic Signatures: Ginny Cohen) (Signed 11-Aug-2023 11:21) Authored: Initial Info, General Health, Health Mgmt, Relationship/Environ, Tobacco Use, Additional Information Last Updated: 15-May-2023 11:21 by Ginny Cohen) Normal [facility] Surgical Pathology Depar mauryon 05-15-2023 [facility] Surgical Pathology Department Name WALE GREY [...] reviewed this case. Diagnostic interpretation performed at [place] [address] Clinical History: Physician Contact Number: [id number] Fixative (A): Saline Fixative (B): Saline Clinical [...] specimen is entirely submitted in 7 cassettes. [facility] B: Received in formalin, labeled with the patient's name and hospital number and B, microdebrider contents , are multiple, irregular segments of blood and soft tissue aggregating to 5.4 x 3.7 x 1.5 cm. [facility] sections are submitted in 8 cassettes [facility] Note: Per the pathologist, the rest of specimen B is submitted in toto in [address] [facility]/05/19/2023 [facility] Department of Pathology [address] [place] [address] Normal [facility] Comment on above: Performed By: #### U [facility] #### [facility] Surgical Pathology Department [address] [facility] [address] BASIC METABOLIC PANELon 08-0 -2022 Anion gap [Moles/Vol] 16 mmol/L Normal 10 - 20 [facility] Comment on above: Performed By: #### B MP #### [facility] [address] [place] [address] Calcium [Mass/Vol] 9.8 mg/dL Normal 8.6 - 10.6 [facility] Comment on above: Performed By: #### B MP #### [facility] [address] [place] [address] Chloride [Moles/Vol] 101 mmol/L Normal 98 - 107 [facility] Comment on above: Performed By: #### B MP #### [facility] [address] [place] [address] Creatinine [Mass/Vol] 0.81 mg/dL Normal 0.50 - 1.30 [facility] Comment on above: Performed By: #### B MP #### [facility] [address] [place] [address] eGFR MALE >90 Normal >90 [facility] Comment on above: Result Comment: CALC ULATIONS OF ESTIMATED GFR ARE PERFORMED USING THE 2020 CKD-EPI STUDY REFIT EQUATION WITHOUT THE RACE VARIABLE FOR THE IDMS-TRACEABLE CREATININE METHODS. https://jasn.asnjournals.org/content//ASN.07935555 88 Performed By: #### B MP #### [facility] [address] [place] [address] Glucose [Mass/Vol] 81 mg/dL Normal 74 - 99 [facility] Comment on above: Performed By: #### B MP #### [facility] [address] [place] [address] HCO3 (Bld) [Moles/Vol] 27 mmol/L Normal 21 - 32 [facility] Comment on above: Performed By: #### B MP #### [facility] [address] [place] [address] Potassium [Moles/Vol] 4.5 mmol/L Normal 3.5 - 5.3 [facility] Comment on above: Performed By: #### B MP #### [facility] [address] [place] [address] Sodium [Moles/Vol] 139 mmol/L Normal 136 - 145 [facility] Comment on above: Performed By: #### B MP #### [facility] [address] [place] [address] Urea nitrogen [Mass/Vol] 13 mg/dL Normal 6 - 23 [facility] Comment on above: Performed By: #### B MP #### [facility] [address] [place] [address] CBCon 05-12-2023 Erythrocyte distribution width (RBC) [Ratio] 13.0 % Normal 11.5 - 14.5 [facility] Comment on above: Performed By: #### C BC #### [facility] [address] [place] [address] Hematocrit (Bld) [Volume fraction] 47.2 % Normal 41.0 - 52.0 [facility] Comment on above: Performed By: #### C BC #### [facility] [address] [place] [address] Hemoglobin (Bld) [Mass/Vol] 14.4 g/dL Normal 13.5 - 17.5 [facility] Comment on above: Performed By: #### C BC #### [facility] [address] [place] [address] MCHC (RBC) [Mass/Vol] 30.5 g/dL Low 32.0 - 36.0 [facility] Comment on above: Performed By: #### C BC #### [facility] [address] [place] [address] MCV (RBC) [Entitic vol] 94 fL Normal 80 - 100 [facility] Comment on above: Performed By: #### C BC #### [facility] [address] [place] [address] NUCLEATED RBC 0.0 /100 WBC Normal 0.0-0.0 [facility] Comment on above: Performed By: #### C BC #### [facility] [address] [place] [address] Platelets (Bld) [#/Vol] 400 10*3/uL Normal 150 - 450 [facility] Comment on above: Performed By: #### C BC #### [facility] [address] [place] [address] RBC 5.03 x10E12/L Normal 4.50 - 5.90 [facility] Comment on above: Performed By: #### C BC #### [facility] [address] [place] [address] WBC (Bld) [#/Vol] 9.2 10*3/uL Normal 4.4 - 11.3 [facility] Comment on above: Performed By: #### C BC #### [facility] [address] [place] [address] Laboratory - Chemistry and C hemistry - challengeon 05-12-2023 Anion gap [Moles/Vol] 16 mmol/L 10 - 20 MG-Otolaryng ology-[facility] 4100 Work Phone: [phone] Calcium [Mass/Vol] 9.8 mg/dL 8.6 - 10.6 MG-Lulu laryng ology-[facility] 4100 Work Phone: [phone] Chloride [Moles/Vol] 101 mmol/L 98 - 107 MG-Otolaryng ology-[facility] 4100 Work Phone: [phone] CO2 [Moles/Vol] 27 mmol/L 21 - 32 MG-Otolar yng ology-[facility] 4100 Work Phone: [phone] Creatinine [Mass/Vol] 0.81 mg/dL See Below MG-Otolaryng ology-[facility] 4100 Work Phone: [phone] Comment on above: Reference Range: 0.5 0 - 1.30 Glucose [Mass/Vol] 81 mg/dL 74 - 99 MG-Geovanni laryng ology-[facility] [place] [address] Work Phone: Potassium [Moles/Vol] 4.5 mmol/L 3.5 - 5.3 MG-Otolaryng ology-[facility] [place] [address] Work Phone: [phone] Sodium [Moles/Vol] 139 mmol/L 136 - 145 [facility] [place] [address] Work Phone: [phone] Urea nitrogen [Mass/Vol] 13 mg/dL 6 - 23 [facility]-Otolaryng ology-[facility] [place] [address] Work Phone: Laboratory - Hematology and Cell countson 05-12-2023 Erythrocyte distribution width (RBC) [Ratio] 13.0 % See Below -Otolaryng oly-[facility] [place] [address] Work Phone: [phone] Comment on above: Reference Range: 11. 5 - 14.5 Hematocrit (Bld) [Volume fraction] 47.2 % See Below -[facility] [place] [address] Work Phone: Comment on above: Reference Range: 41. 0 - 52.0 Hemoglobin (Bld) [Mass/Vol] 14.4 g/dL See Below MG-Otolaryng ology-[facility] [place] [address] Work Phone: Comment on above: Reference Range: 13. 5 - 17.5 MCHC (RBC) [Mass/Vol] 30.5 g/dL below low threshold See Below -[facility] [place] [address] Work Phone: Comment on above: Reference Range: 32. 0 - 36.0 MCV (RBC) [Entitic vol] 94 fL 80 - 100 MG-Otolaryng ology-[facility] [place] [address] Work Phone: Platelets (Bld) [#/Vol] 400 10*3/uL 150 - 450 [facility] Work Phone: RBC (Bld) [#/Vol] 5.03 {x10E12/L} See Below [facility] 410 Work Phone: Comment on above: Reference Range: 4.5 0 - 5.90 WBC (Bld) [#/Vol] 9.2 10*3/uL 4.4 - 11.3 [facility] 410 Work Phone: No Panel Informationon 05-12 >90 >90 [facility] 410 Work Phone: Comment on above: CALCULATIONS OF AMANDA MATED GFR ARE PERFORMED USING THE 2020 CKD-EPI STUDY REFIT EQUATION WITHOUT THE RACE VARIABLE FOR THE IDMS-TRACEABLE CREATININE METHODS.https://jasn.asnjournals.org/content/early//ASN. 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 Provider Impressions 1. Inverted [...] Vital Signs Recorded: 18Mar2023 01:56PM Height6 ft Ugeplr997 lb 9 oz BMI Qszreghtux17.63 kg/m2 BSA Calculated2.91 Tobacco Useb) No PHQ-2 [...] Mar 29 2023 3:44PM EST (Author) Normal [employer] Tobacco Screening.on 023 Adult depression screening assessment No [facility] [employer] Work Phone: Fall risk assessment a) No falls within the last year [employer] Work Phone: Tobacco use status CPHS b) No [employer] Work Phone: Established Visit (Otolaryng ology)on 01-06-2023 Established Visit (Otolaryngology) Diagnoses/Problems Chronic ethmoidal sinusitis (473.2) (J32.2) Chronic maxillary sinusitis (473.0) (J32.0) Nasal congestion (478.19) (R09.81) 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 Provider Impressions 1. 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 Please feel free to contact my office by calling [phone] with any questions. Provider Impressions 1. Inverted [...] No Reported Medications Vitals Vital Signs Recorded: 75Rad3029 04:13PM Height6 ft Pnpqwl317 lb 8 oz BMI Owstjpbbom80.89 kg/m2 BSA Calculated2.92 Tobacco Useb) No PHQ-2 [...] (Please see procedure below.) SINONASAL ENDOSCOPY (CPT 14172): To better evaluate the patient's symptoms, sinonasal endoscopy is indicated. After discussion of risks and benefits, and topical decongestion and anesthesia,an endoscope was used to perform (more content not included)... Normal [employer] Tobacco Screening.on 023 Adult depression screening assessment No [employer] Work Phone: Fall risk assessment a) No falls within the last year [employer] Work Phone: Tobacco use status CPHS b) No [employer] Work Phone: MRI LSPINE WO CONon 07-23-20 [...] by: ANTONIO WEINSTEIN Date: 2022-07-23 12:04 Normal [facility] XR LSPINE 2_3 [...] by: ANTONIO WEINSTEIN Date: 2022-02-18 15:30 Normal [facility] Pathology Reporton Pathology Report [id number]:12 7 Normal [facility] Coding Summary.on 08-31-2019 Coding Summary. CODING DATE: 019 FINAL [facility] STATUS: Home (Routine DC) PAYOR: [facility] [place] APC DESCRIPTION 5155 Level 5 Airway Endoscopy ADMIT DX: REASON FOR VISIT DX: J32.4 Chronic pansinusitis FINAL DX: PRINCIPAL: J32.4 Chronic pansinusitis SECONDARY: J34.89 Other specified disorders of nose and nasal sinuses J45.909 Unspecified asthma, uncomplicated G47.30 Sleep apnea, unspecified Z99.89 Dependence on other enabling machines and devices PYMT PROC APC STAT DESCRIPTION DOCTOR NAME DATE 49220 5155 J1 Nasal/sinus endoscopyJeferson MD, Hilary H 08/25/2019 surgical with ethmoidectomy; total (anterior and posterior), including sphenoidotomy, with removal of tissue from the sphenoid sinus RT Right side (used to identify procedures performed on the right side of the body) 38908 5155 J1 Nasal/sinus endoscopyJeferson MD, Hilary H 08/25/2019 surgical, with maxillary antrostomy; with removal of tissue from maxillary sinus RT Right side (used to identify procedures performed on the right side of the body) 17711 5155 J1 Nasal/sinus endoscopyJeferson MD, Hilary H 08/25/2019 surgical, with frontal sinus exploration, including removal of tissue from frontal sinus, when performed RT Right side (used to identify procedures performed on the right side of the body) 52537 Anesthesia for Rene BanksLoyd Smith DO 08/25/2019 procedures on nose and accessory sinuses; not otherwise specified NOTE: The code number assigned matches the documented diagnosis and / or procedure in the patient's chart. However, the narrative phrase printed from the coding software may appear abbreviated, or result in slightly different terminology. Revised Coded By: Ngoc Campo Revised Date Saved: 08/31/2019 10:48 am [facility] Main OR Intraoperative Recor don 08-29-2019 Main OR Intraoperative Record IntraOp Document Type FT Summary Primary Physician: Yolette Govea MD Finalized Date/Time: 08/29/19 09:29:47 Pt. Name: WALE GREY /Sex: 2000 Male Med Rec #: [id number] Physician: Jeferson HUBBARD, Yolette Ureña Financial #: [id number] Pt. Type: A Room/Bed: [place] [address] Admit/Disch: 08/25/19 09:16:00 - 08/25/19 15:30:00 Institution: [...] Role Performed Anesthesiologist of Surgeon - Primary Treating Engineer Helper - Primary Record Time In 08/25/19 10:37:00 08/25/19 10:37:00 08/25/19 10:37:00 Time Out 08/25/19 13:03:00 08/25/19 13:03:00 08/25/19 13:03:00 Procedure ANTROSTOMY TURBINECTOMY ANTROSTOMY TURBINECTOMY ANTROSTOMY TURBINECTOMY ETHMOIDECTOMY IM(Right) ETHMOIDECTOMY IM(Right) ETHMOIDECTOMY IM(Right) Comments out of room from 3567-3533. Last Modified By: Patrick INFANTE, Nelly Nguyen RN, Nelly Robison RN 08/25/19 13:05:43 08/25/19 13:05:43 08/25/19 13:05:43 Entry 4 Entry 5 Entry 6 Case Attendee Patrick INFANTE, Nelly Aguilar PRODUCT EXPERT, Enzo Tijerina CST, Sheba Segovia Role Performed Treating Engineer Helper - Primary Scrub - Primary Scrub - Relief Time In 08/25/19 10:37:00 08/25/19 10:37:00 08/25/19 11:40:00 Time Out 08/25/19 13:03:00 08/25/19 13:03:00 08/25/19 12:14:00 Procedure ANTROSTOMY TURBINECTOMY ANTROSTOMY TURBINECTOMY ANTROSTOMY TURBINECTOMY ETHMOIDECTOMY IM(Right) ETHMOIDECTOMY IM(Right) ETHMOIDECTOMY IM(Right) Comments out for lunch at out for lunch at [phone] Last Modified By: Patrick INFANTE, Nelly Nguyen [...] Rene Nava DO, Loyd, Given Participants Jeferson UHBBARD, Rehana Rodriguez RN, Patrick Staton RN, Jeff [...] and tissue Entry 1 Skin Integrity Intact, [place], Warm, and Skin Abnormality No Dry Outcomes [...] 11:42:00 By Rehana INFANTE, Jomar Morales, Breezy PRODUCT EXPERT, Jeff Marcano CST, Jeff Giraldo CST, Enzo [...] Morales Patient Status Stable Skin. Condition Intact, [place], Warm, and Dry Airway Maintenance Oxygen in Use? Yes Airway Device Simple Mask Flow Rate 10 L/min Outcomes Met? Yes Last Modified By: Jomar Kimball RN 08/25/19 11:48:09 Post-Care Text: The patient is free from signs and symptoms of injury related to transfer/transport General Comments: handoff report given to pacu nurse. Lauriep,detention officer Administration FT Pre-Care Text: Verifies allergies, administers prescribed medications and solutions, administers prescribed antibiotic therapy and immunizing agents as ordered, evaluates response to medications Administers prescribed medications and solutions Entry 1 Expiration Date Yes Outcomes Met? Yes Verified Last Modified By: Nelly Nguyen RN 08/25/19 10:03:51 Post-Care Text: The patient received appropriate medication(s) safely administered during the perioperative period For Tone-Kulwant please see scanned medication reconcilliation form for [...] AIR Quantity 1 Aid PLUS LOWER BODY [[id number]][F] Fluid/Pepin Unit Mistral warming system Setting high/43 degrees Body Site Lower anterior torso Last Modified By: Nelly Nguyen RN 08/25/19 10:05:52 Case Comments Finalized By: Melisa Rg CST Document Signatures Signed By: Nelly Nguyen RN 08/25/19 13:06 ALEXIS Hines RN, Andrea 08/26/19 11:19 Melisa Rg CST 08/29/19 09:29 Normal [facility] Operative Reporton 11-22-201 9 Operative [...] Yolette Govea Jr., M.D. aek Dictated: 08/25/2019 #[id number] Typed: 08/26/2019 #[id number] cc: Wiliam Carrillo Jr., M.D. [facility] Comment on above: Result Comment: Elec tronically Signed By: Yolette Govea MD\.br\Date and Time Signed: 08/26/19 09:56 EST Inpatient Patient Summaryon 08-25-2019 Inpatient Patient Summary [facility] Clinical Discharge Instructions PERSON INFORMATION Name: WALE GREY PHYSICIANS Admitting Physician: Yolette Govea MD Attending Physician: Yolette Govea MD PCP: ENZO VASQUES DO Discharge Diagnosis: Chronic pansinusitis Comment: PATIENT EDUCATION INFORMATION Instructions: Post Op Patient Instructions - FT (CUSTOM) Medication Leaflets: Follow up: With: Address: When: Yolette Govea [address] [place] [address] GlucoVista (9) In 6 days 08/31/2019 Comments: Call for followup appointment MEDICATION LIST Comment: [facility] Main OR PACU I Recordon 08-06 Main OR PACU I Record PACU Phase I Document Type FT Summary Primary Physician: Yolette Govea MD Finalized Date/Time: 08/25/19 13:39:03 Pt. Name: WALE GREY Paul SwainB./Sex: 2000 Male Med Rec #: [id number] Physician: Yolette Govea MD Financial #: [id number] Pt. Type: A Room/Bed: [facility] Admit/Disch: 08/25/19 09:16:27 - [...] Jesenia Phan RN 08/25/19 13:38:57 Finalized By: Jeesnia Phan RN Document Signatures Signed By: Jesenia Phan RN 08/25/19 13:39 Normal [facility] Main OR PACU II Recordon Main OR PACU II Record PACU Phase II Document Type FT Summary Primary Physician: Yolette Govea MD Finalized Date/Time: 08/25/19 15:29:24 Pt. Name: WALE GREY Paul SwainB./Sex: 2000 Male Med Rec #: [id number] Physician: Yolette Govea MD Financial #: [id number] Pt. Type: A Room/Bed: [place] [address] Admit/Disch: 08/25/19 09:16:27 - Institution: Case Times [...] Hager RN 08/25/19 15:29 Normal [facility] Main OR Preoperative Recordo n 08-25-2019 Main OR Preoperative Record PreOp Document Type FT Summary Primary Physician: Yolette Govea MD Finalized Date/Time: 08/25/19 11:07:39 Pt. Name: WALE GREY /Sex: 2000 Male Med Rec #: [id number] Physician: Yolette Govea MD Financial #: [id number] Pt. Type: A Room/Bed: [place] [address] Admit/Disch: 08/25/19 09:16:27 - Institution: Case Times [...] Nguyen RN 08/25/19 11:07 Normal [facility] Operative Reporton 9 Operative Report Patient: Ministerio GREY Age: 18 years Sex: Male : 2000 Associated Diagnoses: None Author: Yolette Govea MD Postoperative Information Procedure: RT IG microdebrider assisted MMA with r/o tissue, total ethmoidectomy, frontal sinusotomy, sphenoidotomy with r/o tissue Preoperative Diagnosis: Chronic pansinusitis (BUY64-WM J32.4, Working, Medical). Postoperative Diagnosis: Chronic pansinusitis (DFE63-DH J32.4, Discharge, Medical). Performed by: Yolette Govea MD. 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 Specimens Removed: nasal polyp, RT sinus contents, RT sinus sock, RT max sinus tissue, RT sphenoid tissue. Estimated Blood Loss: 100 ml. Medications Complications: None. Normal [facility] Comment on above: Result Comment: Elec tronically Signed By: Jeferson HUBBARD, Yolette Ureña\.pastor\Date and Time Signed: 08/25/19 13:21 EST Patient Education - Texton 1 10-25-2018 Patient Education - Text Normal [facility] Coding Summary.on 08-22-2019 Coding Summary. CODING DATE: 019 FINAL [facility] STATUS: Home (Routine DC) PAYOR: [facility] [place] [facility] DESCRIPTION 5521 Level 1 Imaging without [...] Saved: 08/22/2019 11:03 am Normal [facility] Auto Diffon 08-19-2019 Basophils/100 WBC (Bld) 1.4 % Normal 0.0-2.0 [facility] Comment on above: Order Comment: Order Added by Discern Expert. Performed By: #### 2 [id number], [id number], [id number] #### [facility] Laboratory [address] [place] [address] Basophils/Leukocyte s Auto (Bld) [Pure # fraction] 0.2 E9/L Normal 0.0-0.2 [facility] Comment on above: Order Comment: Order Added by Discern Expert. Performed By: #### 2 124060, [id number], [id number] #### [facility] [address] [place] [address] Eosinophils/100 WBC (Bld) 1.1 % Normal 0.0-8.0 [facility] Comment on above: Order Comment: Order Added by Discern Expert. Performed By: #### 2 722437, [id number], [id number] #### [facility] Laboratory [address] [place] [address] Eosinophils/Leukocy carlos Auto (Bld) [Pure # fraction] 0.1 E9/L Normal 0.0-0.5 [facility] Comment on above: Order Comment: Order Added by Discern Expert. Performed By: #### 2 452364, [id number], [id number] #### [facility] [address] [place] [address] Lymphocytes/100 WBC (Bld) 21.2 % Normal 14.0-50.0 [facility] Comment on above: Order Comment: Order Added by Discern Expert. Performed By: #### 2 643937, [id number], [id number] #### [facility] [address] [place] [address] Lymphocytes/Leukocy carlos Auto (Bld) [Pure # fraction] 2.3 E9/L Normal 1.0-4.0 [facility] Comment on above: Order Comment: Order Added by Discern Expert. Performed By: #### 2 022951, [id number], [id number] #### [facility] [address] [place] [address] Monocytes/100 WBC (Bld) 5.4 % Normal 4.0-14.0 [facility] Comment on above: Order Comment: Order Added by Discern Expert. Performed By: #### 2 883803, [id number], [id number] #### [facility] [address] [place] [address] Monocytes/Leukocyte s Auto (Bld) [Pure # fraction] 0.6 E9/L Normal 0.2-1.0 [facility] Comment on above: Order Comment: Order Added by Discern Expert. Performed By: #### 2 476875, [id number], [id number] #### [facility] [address] [place] [address] Neutrophils/100 WBC (Bld) 70.9 % Normal 36.0-75.0 [facility] Comment on above: Order Comment: Order Added by Discern Expert. Performed By: #### 2 451126, [id number], [id number] #### [facility] [address] [place] [address] Neutrophils/Leukocy carlos Auto (Bld) [Pure # fraction] 7.6 E9/L High 2.0-7.5 [facility] Comment on above: Order Comment: Order Added by Discern Expert. Performed By: #### 2 526769, [id number], [id number] #### [facility] [address] [place] [address] BUNon 08-19-2019 Urea nitrogen [Mass/Vol] 12 mg/dL Normal 5-21 [facility] Comment on above: Performed By: #### 2 942495, 1362556, [id number], [id number], [id number] #### [facility] [address] [place] [id number] CBC w/ Auto Diffon 9 Erythrocyte distribution width (RBC) [Ratio] 14.1 % Normal 10.9-14.2 [facility] Comment on above: Performed By: #### 2 061934, [id number], [id number] #### [facility] Laboratory [address] [place] [address] Hematocrit (Bld) [Volume fraction] 48.4 % Normal 37.7-49.0 [facility] Comment on above: Performed By: #### 2 954776, [id number], [id number] #### [facility] Laboratory [address] [place] [address] Hemoglobin (Bld) [Mass/Vol] 16.2 g/dL Normal 13.5-17.5 [facility] Comment on above: Performed By: #### 2 536622, 3063534, [id number] #### [facility] Laboratory [address] [place] [address] MCH (RBC) [Entitic mass] 29.0 pg Normal 27.0-34.0 [facility] Comment on above: Performed By: #### 2 232014, 0622883, [id number] #### [facility] Laboratory [address] [place] [address] MCHC (RBC) [Mass/Vol] 33.6 g/dL Normal 31.4-36.0 [facility] Comment on above: Performed By: #### 2 298245, 8509919, [id number] #### [facility] Laboratory [address] [place] [address] MCV (RBC) [Entitic vol] 86.5 fL Normal 80.0-100.0 [facility] Comment on above: Performed By: #### 2 156829, 2282039, [id number] #### [facility] Laboratory [address] [place] [address] Platelet mean volume (Bld) [Entitic vol] 8.7 fL Normal 6.4-10.8 [facility] Comment on above: Performed By: #### 2 [id number], [id number], [id number] #### [facility] [address] [place] [address] 45466 Platelets (Bld) [#/Vol] 351.0 E9/L Normal 150.0-500.0 [facility] Comment on above: Performed By: #### 2 [id number], [id number] #### [facility] [address] [place] [address] 39877 RBC (Bld) [#/Vol] 5.6 E12/L Normal 4.3-5.9 [facility] Comment on above: Performed By: #### 2 [id number], [id number], [id number] #### [facility] [address] [place] [address] 92840 WBC corrected for nucl RBC Auto (Bld) [#/Vol] 10.7 E9/L Normal 4.0-11.0 [facility] Comment on above: Performed By: #### 2 [id number], [id number], [id number] #### [facility] [address] [place] [address] Creatinineon 08-19-2019 Creatinine [Mass/Vol] 0.8 mg/dL Normal 0.5-1.3 [facility] Comment on above: Performed By: #### 2 [id number], [id number], [id number], [id number], [id number] #### [facility] [address] [place] [address] Glucoseon 08-19-2019 Glucose [Mass/Vol] 97 mg/dL Normal 55-199 [facility] Comment on above: Performed By: #### 2 [id number], [id number], [id number], [id number], [id number] #### [facility] [address] [place] [address] Lyteson 08-19-2019 Anion gap [Moles/Vol] 14 mmol/L Normal 6-16 [facility] Comment on above: Performed By: #### 2 [id number], [id number], [id number], [id number], [id number] ####[facility] [address] [place] [address] Chloride [Moles/Vol] 104 mmol/L Normal 101-111 [facility] Comment on above: Performed By: #### 2 [id number], [id number], [id number], [id number], [id number] ####[facility] [address] [place] [address] CO2 [Moles/Vol] 25 mmol/L Normal 21-31 [facility] Comment on above: Performed By: #### 2 129030, [id number], [id number], [id number], [id number] ####[facility] [address] [place] [address] Potassium [Moles/Vol] 3.5 mmol/L Normal 3.5-5.3 [facility] Comment on above: Performed By: #### 2 056864, [id number], [id number], [id number], [id number] ####[facility] [address] [place] [address] Sodium [Moles/Vol] 139 mmol/L Normal 135-145 [facility] Comment on above: Performed By: #### 2 [id number], 6137387, [id number], 9924129, 9457151 ####[facility] [address] [place] [address] PT & PTTon 08-19-2019 aPTT Coag (PPP) [Time] 35.7 second(s) Normal 25.1-36.5 [facility] Comment on above: Result Comment: Hepa rin therapeutic range (represented by Anti-Factor Xa activity of 0.2 - 0.4 U/mL) corresponds to PTT of 56.6 - 109.0 sec. Performed By: #### 2 [id number], [id number], [id number] #### [facility] [address] [place] [address] INR Coag (PPP) [Relative time] 1.0 {INR} [facility] Comment on above: Result Comment: INR results are specifically intended to assess patients stabilized on long-term Anticoagulation therapy suggested INR?s ?Less Intensive Anticoagulation? 2.0 ? 3.0 Conventional Range 3.0 ? 4.5 Performed By: #### 2 [id number], [id number], [id number] #### [facility] [address] [place] [address] PT Coag (PPP) [Time] 11.6 second(s) Normal 10.2-12.9 [facility] Comment on above: Performed By: #### 2 844358, [id number], [id number] #### [facility] [address] [place] [address] XR Chest 2 Viewson 9 XR Chest [...] by: JAZMYNE Technologist: ZHANNA Normal [facility] eGFRon 08-19-2019 GFR/1.73 sq M predicted among blacks MDRD (S/P/Bld) [Vol rate/Area] mL/min/{1.73_m2} Normal >=59 [facility] Comment on above: Order Comment: Order added by Discern Expert. Result Comment: eGFR is race adjusted. AA=. Performed By: #### 2 076751, [id number], [id number], [id number], [id number] #### [facility] [address] [place] [address] GFR/1.73 sq M predicted among non-blacks MDRD (S/P/Bld) [Vol rate/Area] mL/min/{1.73_m2} Normal >=59 [facility] Comment on above: Order Comment: Order added by Discern Expert. Result Comment: Supervisor Tree Trimming niall kidney disease could be indicated at eGFR's of less than 60 mL/min/1.73m2. Kidney failure is indicated at less than 15 mL/min/1.73m2. Performed By: #### 2 986267, [id number], [id number], 7599905, [id number] #### [facility] [address] [place] [address] Coding Summary.on 08-08-2019 Coding Summary. CODING DATE: 019 FINAL [facility] STATUS: Home (Routine DC) PAYOR: [facility] [place] [facility] DESCRIPTION 5522 Level 2 Imaging without [...] CphT Date Saved: 08/08/2019 12:24 pm Normal [facility] CT Maxillofacial w/o Contras ton [...] There is apparent soft tissue opacification of dionra bullosa formation of the right middle nasal [...] M.D. Transcribed by: JAZMYNE Technologist: YOSEPH Parr [facility] Vital Signs Date Time Vital Sign Value Performing Clinician Facility 05-23-2025 15: Body height 182.25 cm [facility] DO Work Phone: [facility] 05-23-2025 15: Body mass index (BMI) [Ratio] 56.5 kg/m2 Enzo Ball DO Work Phone: [facility] 05-23-2025 15: Body weight 187.9 kg Enzo Ball DO Work Phone: [facility] 05-23-2025 15:21-0400 Diastolic blood pressure 80 mm[Hg] Enzo Ball DO Work Phone: [facility] 05-23-2025 15:21-0400 Heart rate 112 /min Enzo Ball DO Work Phone: [facility] 05-23-2025 15:21-0400 Respiratory rate 12 /min Enzo Ball DO Work Phone: [facility] 05-23-2025 15:21-0400 Systolic blood pressure 118 mm[Hg] Enzo Ball DO Work Phone: [facility] 01-16-2025 16:14-0400 Body height 182.25 cm [facility] 01-16-2025 16:14-0400 Body mass index (BMI) [Ratio] 56.4 kg/m2 [facility] 01-16-2025 16:14-0400 Body weight 187.44 kg [facility] 01-16-2025 16:14-0400 Diastolic blood pressure 108 mm[Hg] [facility] 01-16-2025 16:14-0400 Heart rate 102 /min [facility] 01-16-2025 16:14-0400 Respiratory rate 12 /min [facility] 01-16-2025 16:14-0400 SaO2% (BldA) [Mass fraction] 97 % [facility] 01-16-2025 16:14-0400 Systolic blood pressure 160 mm[Hg] [facility] 01-11-2025 15:29-0400 Body height 182.9 cm Dominick Barbosa MD Work Phone: [facility] 01-11-2025 15:29-0400 Body mass index (BMI) [Ratio] 55.95 kg/m2 Dominick Barbosa MD Work Phone: [facility] 01-11-2025 15:29-0400 Body weight 187.11 kg Dominick Barbosa MD Work Phone: [facility] 07-13-2024 13:18-0400 Body height 182.9 cm Dominick Barbosa MD Work Phone: [facility] 07-13-2024 13:18-0400 Body mass index (BMI) [Ratio] 56.42 kg/m2 Dominick Barbosa MD Work Phone: [facility] 07-13-2024 13:18-0400 Body weight 188.7 kg Dominick Barbosa MD Work Phone: [facility] 06-03-2024 14:05-0400 Body height 182.25 cm [facility] 06-03-2024 14:05-0400 Body mass index (BMI) [Ratio] 57.3 kg/m2 [facility] 06-03-2024 14:05-0400 Body weight 190.5 kg [facility] 06-03-2024 14:05-0400 Diastolic blood pressure 91 mm[Hg] [facility] 06-03-2024 14:05-0400 Heart rate 83 /min [facility] 06-03-2024 14:05-0400 Respiratory rate 12 /min [facility] 06-03-2024 14:05-0400 Systolic blood pressure 146 mm[Hg] [facility] 03-09-2024 15:02-0400 Body height 182.9 cm Dominick Barbosa MD Work Phone: [facility] 03-09-2024 15:02-0400 Body mass index (BMI) [Ratio] 56.32 kg/m2 Dominick Barbosa MD Work Phone: [facility] 03-09-2024 15:02-0400 Body weight 188.38 kg Dominick Barbosa MD Work Phone: [facility] 10-06-2023 12:15-0500 Body height 182.25 cm Enzo Vasques Other [facility] [employer] Other 10-06-2023 12:15-0500 Body mass index (BMI) [Ratio] 54.62 kg/m2 Enzo Vasques Other [facility] [employer] Other 10-06-2023 12:15-0500 Body weight 181.44 kg Enzo Vasques Other [facility] [employer] Other 09-02-2023 15:29-0500 Body height 182.9 cm Dominick Barbosa MD Work Phone: [facility] 09-02-2023 15:29-0500 Body mass index (BMI) [Ratio] 54.37 kg/m2 Dominick Barbosa MD Work Phone: [facility] 09-02-2023 15:29-0500 Body weight 181.85 kg Dominick Barbosa MD Work Phone: [facility] 05-27-2023 07:57-0400 Body height 182.88 cm Enzo Vasques Work Phone: [facility] Work Phone: 05-27-2023 07:57-0400 Body mass index (BMI) [Ratio] 55.81 kg/m2 Enzo Vasques Work Phone: Y[facility]ixq[facility] 4100 Work Phone: 05-27-2023 07:57-0400 Body surface area Derived from formula 2.89 m2 Enzo Vasques Work Phone: O[facility]mzhtninrkoq[facility] 4100 Work Phone: 05-27-2023 07:57-0400 Body weight 186.66 kg Enzo Segovia Ball Work Phone: [facility]be[facility] 4100 Work Phone: 05-27-2023 07:57-0400 0 1 Enzo Vasques Work Phone: [facility]Heont[facility]ugkvbql[facility] 4[address] Work Phone: Comment on above: [employer] 05-20-2023 12:20-0400 Body height 182.88 cm Enzo Vasques Work Phone: [facility] 410 Work Phone: 05-20-2023 12:20-0400 Body mass index (BMI) [Ratio] 56.31 kg/m2 Enzo Vasques Work Phone: [facility] [address] Work Phone: 05-20-2023 12:20-0400 Body surface area Derived from formula 2.91 m2 Enzo Vasques Work Phone: [facility] 4105 Work Phone: 05-20-2023 12:20-0400 Body weight 188.33 kg Enzo Vasques Work Phone: [facility] 4106 Work Phone: 05-15-2023 11:49-0400 Body temperature 96.8 [degF] Dominick Barbosa MD Work Phone: [facility] 05-15-2023 11:49-0400 Diastolic blood pressure 91 mm[Hg] Dominick Barbosa MD Work Phone: [facility] 05-15-2023 11:49-0400 Heart rate 82 /min Dominick Barbosa MD Work Phone: [facility] 05-15-2023 11:49-0400 Respiratory rate 16 /min Dominick Barbosa MD Work Phone: [facility] 05-15-2023 11:49-0400 Systolic blood pressure 139 mm[Hg] Dominick Barbosa MD Work Phone: [facility] 05-15-2023 11:18-0400 Body height 182.8 cm Dominick Barbosa MD Work Phone: [facility] 05-15-2023 11:18-0400 Body mass index (BMI) [Ratio] 55.39 kg/m2 Dominick Barbosa MD Work Phone: [facility] 05-15-2023 11:18-0400 Body weight 185.1 kg Dominick Barbosa MD Work Phone: [facility] 03-18-2023 13:56-0400 Body height 182.88 cm Enzo Segovia Ball Work Phone: QG-Xnmjblxnfhuciv-Yu [place] Work Phone: 03-18-2023 13:56-0400 Body mass index (BMI) [Ratio] 56.63 kg/m2 Enzo E Ball Work Phone: QK-Lfbvcdqqxysktk-He [place] Work Phone: 03-18-2023 13:56-0400 Body surface area Derived from formula 2.91 m2 Enzo E Ball Work Phone: DQ-Wrurjhkypcsvxv-Ov [place] Work Phone: 03-18-2023 13:56-0400 Body weight 189.41 kg Enzo E Ball Work Phone: GV-Iqhskxcwnjfzen-Dq [place] Work Phone: 03-18-2023 13:56-0400 0 1 Enzo Segovia Ball Work Phone: IH-Yrriziioobczty-Zr [place] Work Phone: Comment on above: [employer] 11-12-2022 16:13-0500 Body height 182.88 cm Enzo Segovia Ball Work Phone: RF-Kwqrguxlkhmzjd-Cu [place] Work Phone: 11-12-2022 16:13-0500 Body mass index (BMI) [Ratio] 56.89 kg/m2 Enzo Segovia Ball Work Phone: IR-Bfwvqpevbdwioe-Ye [place] Work Phone: 11-12-2022 16:13-0500 Body surface area Derived from formula 2.92 m2 Enzo Vasques Work Phone: KJ-Qwgnjfyakykryg-Ge [place] Work Phone: 11-12-2022 16:13-0500 Body weight 190.29 kg Enzo Vasques Work Phone: BS-Dswxmdtzmhdbrv-Fp [place] Work Phone: 11-12-2022 16:13-0500 0 1 Enzo Vasques Work Phone: LW-Sshehfoefrodml-Km [place] Work Phone: Comment on above: [employer] Encounters Encounter Date Encounter Type Care Provider Facility Start: 07-12-2025 End: 07-12-2025 ambulatory [facility] Start: 07-10-2025 End: 07-10-2025 ambulatory Ruth Pfeiffer MD Facility: [facility] Start: 05-23-2025 End: 05-23-2025 ambulatory Enzo Vasques DO Work Phone: [facility] Work Phone: Start: 05-23-2025 End: 05-23-2025 Patient encounter procedure Enzo Vasques DO [facility] Work Phone: Start: 05-23-2025 End: 05-23-2025 Patient encounter status Enzo Vasques DO [facility] Start: 02-13-2025 End: 02-13-2025 Office outpatient visit 15 minutes Dominick Barbosa MD Work Phone: [facility] Comment on above: 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); Chronic sphenoidal sinusitis Start: 02-13-2025 End: 02-13-2025 ambulatory [facility] Start: 02-13-2025 End: 02-13-2025 ambulatory Ruth Pfeiffer MD Facility: [facility] Start: 01-16-2025 End: 01-16-2025 ambulatory [facility] Work Phone: Start: 01-16-2025 End: 01-16-2025 Patient encounter procedure [facility] Work Phone: Start: 01-16-2025 End: 01-16-2025 ambulatory Ruth Pfeiffer MD Facility: [facility] Start: 01-11-2025 End: 01-11-2025 Office outpatient visit 15 minutes Dominick Barbosa MD Work Phone: [facility] Comment on above: 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); Chronic sphenoidal sinusitis; Chronic maxillary sinusitis Start: 01-11-2025 End: 01-11-2025 ambulatory [facility] Start: 01-02-2025 End: 01-02-2025 ambulatory Ruth Pfeiffer MD Facility:[facility] Start: 09-12-2024 End: 09-12-2024 ambulatory Ruth Pfeiffer MD Facility:[facility] [place] Start: 08-08-2024 End: 08-08-2024 ambulatory [facility] Work Phone: Start: 08-08-2024 End: 08-08-2024 Patient encounter procedure [facility] Work Phone: Start: 07-13-2024 End: 07-13-2024 Office outpatient visit 15 minutes Dominick Barbosa MD Work Phone: [facility] Comment on above: Post-nasal drainage (Primary Dx); Chronic maxillary sinusitis; Nasal congestion Start: 06-08-2024 Non-patient / Non-visit [facility] Work Phone: Start: 06-03-2024 Patient encounter status [facility] Start: 06-03-2024 End: 06-03-2024 ambulatory [facility] Work Phone: Start: 06-03-2024 End: 06-03-2024 Encounter for general adult medical examination without abnormal findings [facility] Start: 06-03-2024 End: 06-03-2024 [facility] Work [facility]: Start: 03-09-2024 End: 03-09-2024 Office outpatient visit 15 minutes Dominick Barbosa MD Work Phone: [facility] Comment on above: Chronic ethmoidal si nusitis (Primary Dx); Chronic maxillary sinusitis Start: 10-06-2023 End: 10-06-2023 ambulatory Enzo Vasques Other [employer] Other Start: 10-06-2023 Office outpatient vi sit 15 minutes Enzo Vasques [facility] Start: 09-02-2023 End: 09-02-2023 Office outpatient visit 15 minutes Dominick Barbosa MD Work Phone: [facility] Comment on above: Chronic ethmoidal si nusitis (Primary Dx); Other chronic sinusitis; Chronic sphenoidal sinusitis Start: 06-07-2023 Chart Update Enzo morales Work Phone: [facility]vizw[facility] 5863 Work Phone: Start: 05-27-[address] Dominick Cerda Facility:[id number] Start: 05-20-2023 Postop follow up vis it related to original px Enzo Vasques Work Phone: WW[facility]Ubbbrbeyzvwqhn[facility] 4109 Work Phone: Start: 05-20-[address] Enzo Vasques Facility:[id number] Start: 05-15-2023 End: 05-15-[address] Dominick Barbosa Facility:[facility] Start: 05-15-2023 AUDIT Enzo morales Work Phone: DN-Mlzryxenlnhnqc-[facility] 4105 Work Phone: Start: 05-15-2023 End: 05-15-2023 Subsequent hospital visit by physician Dominick Barbosa MD Work Phone: [facility] Comment on above: Chronic ethmoidal si nusitis; Benign neoplasm of middle ear, nasal cavity and accessory sinuses; Chronic sinusitis, unspecified Start: 05-12-[address] Dominick Cerda Facility:[facility] Start: 05-12-2023 Encounter for preprocedural laboratory examination Dr. Dominick Barbosa [facility] Start: 03-18-2023 Office outpatient vi sit 15 minutes Enzo Vasques Work Phone: MU[facility]Kukqiokyvnkyvd-[facility] 4104 Work Phone: Start: 03-18-2023 Patient encounter procedure Enzo Vasques Work Phone: RK-Stiyuhdpexhlcz-Mvrd [place] Work Phone: Start: 03-18-[address] Dominick Cerda Facility:[id number] Start: 01-07-2023 End: 01-07-2023 ambulatory Enzo Vasques Other [facility] [employer] Other Start: 01-07-2023 Telephone encounter Enzo Vasques [facility] Start: 01-06-2023 Office outpatient vi sit 25 minutes Enzo Vasques Work Phone: QP-Lbzribxeikkykz-[facility] 4109 Work Phone: Start: 01-06-[address] Dominick Cerda Facility:[id number] Start: 01-05-2023 End: 01-05-2023 ambulatory Enzo Vasques Other [facility] [employer] Other Start: 01-05-2023 Office outpatient vi sit 15 minutes Enzo Vasques [facility] Start: 11-19-2022 End: 11-20-[address] DOCTOR PARISI Facility:H1 Start: 11-12-2022 Office outpatient vi sit 25 minutes Enzo Vasques Work Phone: QL-Kyqasbhekqxkvf-[facility] 4100 Work Phone: Start: 11-12-2022 Patient encounter procedure Enzo Vasques Work Phone: LW-Xlumwvmpqmvxum-Vpdw [place] Work Phone: Start: 11-12-[address] Dominick Cerda Facility:[id number] Start: 07-29-2022 End: 08-23-[address] ENZO VASQUES Facility:H1 Start: 07-22-2022 End: 07-23-[address] ENZO VASQUES Facility:[facility]1 Start: 06-24-2022 Well child visit Enzo Vasques Other [employer] Other Start: 03-20-2022 End: 04-25-[address] ENZO VASQUES Facility:H1 Start: 02-18-2022 End: 02-19-[address] ENZO VASQUES Facility:H1 Procedures Date Procedure Procedure Detail Performing Clinician Start: 01-11-2025 Level iv surg pathol ogy gross&microscopic exam Dominick Barbosa MD Work Phone: Start: 01-11-2025 Follow-up visit Follow-up DOMINICK BARBOSA Start: 07-13-2024 Level iv surg pathol ogy gross&microscopic exam Dominick Barbosa MD Work Phone: Start: 05-15-2023 SURGICAL PATHOLOGY RESULTS Dominick Barbosa [...] Zoste r Vaccines (1 of 2) [facility] Start: 01-17-2026 End: 01-17-2026 Patient encounter procedure 01/17/2026 3:15 PM EDT Office Visit [facility] [address] [place] [address] Dominick Barbosa MD [address] [place] [address] [facility] Start: 06-05-2025 Influenza vaccination Influenz a Vaccine (Season Ended) [facility] Start: 01-11-2025 End: 01-11-2025 Patient encounter procedure 01/11/2025 3:00 PM EDT Office Visit [facility] [address] [place] [address] Dominick Barbosa MD [address] [place] [address] [facility] Start: 07-13-2024 End: 07-13-2024 Patient encounter procedure 07/13/2024 1:15 PM EDT Office Visit [facility] [address] [place] [address] Dominick Barbosa MD [address] [place] [address] [facility] Start: 06-05-2024 COVID-19 Vaccine ( season) COVID-19 Vaccine ( season) [facility] Start: 06-05-2024 Influenza vaccination [facility] Start: 03-09-2024 End: 03-09-2024 Patient encounter procedure 03/09/2024 2:45 PM EDT Office Visit [facility] [address] [place] [address] Dominick Barbosa MD [address] [place] [address] [facility] Start: 09-02-2023 FUV, Provider: Dominick Barbosa, Status: Pen, Time: 2:45 PM FUV, Provider: Dominick Barbosa, Status: Ho, Time: 2:45 PM [facility]ubkdzkssbd[facility] 4100 Work Phone: Start: 09-02-2023 End: 09-02-2023 Patient encounter procedure 09/02/2023 2:45 PM EST Office Visit [facility] [address] [place] [id number] Dominick Barbosa MD [address] [facility] [address] [place] [address] [facility] Start: 06-05-2023 COVID-19 Vaccine ( season) COVID-19 Vaccine ( season) [facility] Start: 06-05-2023 Influenza vaccination Influenz a Vaccine (#1) [facility] Start: 05-27-2023 POV, Provider: Dominick Barbosa, Status: Ho, Time: 10:30 AM POV, Provider: Dominick Barbosa, Status: Ho, Time: 10:30 AM RE-Pmtpuyjmmuemux-Hpcq [place] Work Phone: Start: 05-20-2023 POV, Provider: Dominick Barbosa, Status: Pen, Time: 12:30 PM POV, Provider: Dominick Barbosa, Status: Pen, Time: 12:30 PM HQ-Plurrtzvuzoutu-Spgp [place] Work Phone: Start: 12-22-2022 DTaP/Tdap/Td Vaccine s (7 - Td or Tdap) DTaP/Tdap/Td Vaccines (7 - Td or Tdap) [facility] Start: 2022 DTaP/Tdap/Td Vaccine s (1 - Tdap) DTaP/Tdap/Td Vaccines (1 - Tdap) [facility] Start: 03-07-2021 COVID-19 Vaccine (2 - Booster for Isaias series) COVID-19 Vaccine (2 - Booster for Isaias series) [facility] Start: 2018 Hepatitis C screening Hepatitis C Sc hunter [facility] Start: 2015 HPV Vaccines (1 - Ma le 3-dose series) HPV Vaccines (1 - Male 3-dose series) [facility] Start: 2011 HPV Vaccines (1 - Ma le 2-dose series) HPV Vaccines (1 - Male 2-dose series) [facility] Start: 11-28-2004 Varicella vaccination Varicell a Vaccines (2 of 2 - 2-dose childhood series) [facility] Start: 2001 MMR Vaccines (1 of 1 - Standard series) MMR Vaccines (1 of 1 - Standard series) [facility] Start: 2001 Varicella vaccination Varicell a Vaccines (1 of 2 - 2-dose childhood series) [facility] Start: 03-23-2001 COVID-19 Vaccine (#1) COVID-19 Vacci ne (#1) [facility] Start: 2000 Hepatitis B Vaccines (1 of 3 - 3-dose series) Hepatitis B Vaccines (1 of 3 - 3-dose series) [facility] Start: 2000 HIV screening HIV Screening [facility] Start: 2000 Lipid panel Lipid Panel [facility] Start: 2000 Yearly Adult Physical Yearly Adult P hysical [facility] Comprehensive metabo lic 1999 panel - Serum or Plasma [facility] Comprehensive metabo lic 1999 panel - Serum or Plasma [facility] Patient Education Low back pain in adults [facility] Work Phone: [facility] Immunizations Immunization Date Immunization Notes Care Provider Fa aron 09-23-2001 varicella virus vaccine Dominick Barbosa MD Work Phone: [facility] [facility] Work Phone: Payers Date Payer Category Payer [employer] Willie tolentino [facility] [id number] 2022 Unknown 2022 Unknown [id number] 2019 Unknown [id number] 2000 Unknown [id number] 2.16.840.1.351238.3.579.2. 593 2000 Unknown [id number] 2.16.840.1.400751.3.579.2. 593 2000 Unknown [id number] 2.16.840.1.408697.3.579.2. 593 2000 Unknown [id number] 2.16.840.1.831938.3.579.2. 593 2000 Unknown [id number] 2.16.840.1.381448.3.579.2. 593 2000 Unknown [id number] 2.16.840.1.873876.3.579.2. 356 2000 Unknown [id number] 2.16.840.1.531597.3.579.2. 356 2000 Unknown [id number] 2.16.840.1.329394.3.579.2. 356 2000 Unknown [id number] 2.16.840.1.106341.3.579.2. 356 2000 Unknown [id number] 2.16.840.1.234602.3.579.2. 356 2000 Unknown [id number] 2.16.840.1.224849.3.579.2. 356 2000 Unknown [id number] 2.16.840.1.013068.3.579.2. 356 2000 Unknown [id number] 2.16.840.1.960881.3.579.2. 1244 2000 Unknown [id number] 2.16.840.1.319617.3.579.2. 1244 2000 Unknown [id number] 2.16.840.1.621620.3.579.2. 1244 2000 Unknown [id number] 2.16.840.1.782227.3.579.2. 196 2000 Unknown [id number] 2.16.840.1.362453.3.579.2. 196 2000 Unknown [id number] 2.16.840.1.751789.3.579.2. 196 2000 Unknown [id number] 2.16.840.1.581396.3.579.2. 196 2000 Unknown [id number] 2.16.840.1.077082.3.579.2. 196 Self-pay Social History Date Type Detail Facility Start: 09-02-2023 End: 01-11-2025 Never a smoker Never a smoker [facility]Ox[facility]wkzegxzrxe[facility] ke Work Phone: Start: 09-02-2023 End: 01-11-2025 Sex Assigned At [facility] Other Tobacco smoking status RIIS Tobacco smoking consumption unknown [facility] Work Phone: Start: 2000 Sex Assigned At Not on file [facility] Work Phone: Start: 09-02-2023 Tobacco smoking status NHIS Never smoked tobacco [facility] Work Phone: Start: 09-02-2023 Tobacco use and exposure Smokeless tobacco non-user [facility] Work Phone: Start: 08-23-2023 End: 01-11-2025 Exposure to SARS-CoV-2 (event) Not sure [facility] Start: 2000 Sex Assigned At Male F [facility] Start: 01-16-2025 Sex Male (finding) [facility] Functional Status Date Assessment Result Facility 01-11-2025 Patient [facility] ionnaire 2 item (PHQ-2) [Reported] [facility] Work Phone: Clinical Notes 09-04-2020 to 05-05-2025 Note Date & Type Note Facility 05-05-2025 Evaluation note Diagnosis Onset Date Resolution Hypertension acute May 23, 2025 2:56pm IFG (impaired fasting glucose) acute May 23 2:56pm Low back pain acute May 2:56pm Obesity acute May 23, 025 2:56pm Wellness examination acute 2024 2:56pm [facility] Work Phone: 1(953) 608-812205-12-2025 History of Present illness Narrative* Dominick Barbosa MD - 02/13/2025 4:45 PM EDT Sinus & Skull Base Surgery Virtual or Telephone Consent An interactive audio and video telecommunication system which permits real time communications between the patient (at the originating site) and provider (at the distant site) was utilized to providethis telehealth service. Verbal consent was requested and obtained from Wale Grey on this date, 02/13/25 for a telehealth [...] Wale Grey presents since last being seen 01/11/2025. He [...] apnea on positive pressure Discussion: Wale Grey and I discussed his biopsy. I suggested [...] 180 g, Rfl: 3 documented in this [facility] Work Phone: 1(546) 948-294704-14-2025 Evaluation note* Diagnosis Onset Date Resolution Status Admit Date Hypertension acute January 16, 2025 3:19pm IFG (impaired fasting glucose) acute January 16, 2025 3:19pm Low back pain acute January 16, 2025 3:19pm Obesity acute January 16 3:19pm [facility] Work Phone: 1(245) 767-324504-09-2025 History of Present illness Narrative* Dominick Barbosa [...] procedure below.) SINONASAL ENDOSCOPY WITH BIOPSY (CPT 75213-K): Due to the patient's nasal cavity / [...] the presence of Dominick Barbosa MD. Signature: oDminick Barbosa MD documented in this [facility] Work Phone: 1(545) 924-798310-09-2024 History of Present illness Narrative* Dominick Barbosa [...] procedure below.) SINONASAL ENDOSCOPY WITH BIOPSY (CPT 34105-C): Due to the patient's nasal cavity / [...] Signature: Dominick Barbosa MD documented in this [facility] Work Phone: 1(821) 709-447906-05-2024 History of Present illness Narrative* Dominick Barbosa [...] (Please see procedure below.) SINONASAL ENDOSCOPY (CPT 61741): To better evaluate the patient's symptoms, sinonasal [...] of Agustina Barbosa MD. [facility] 1(267) 508-571901-02-2024 Evaluation note* Encounter Date Diagnosis Assessment Notes [...] index [BMI] 50.0-59.9, adult (ICD-10 - Z68.43) [employer] Other 11-29-2023 History of Present illness Narrative* [...] (Please see procedure below.) SINONASAL ENDOSCOPY (CPT 58550): To better evaluate the patient's symptoms, sinonasal [...] free to contact my office by calling [phone] with any questions. Signature: Scribe Attestation By signing my name below, IReina Scribe attest that this documentation has been prepared under the direction and in the presence of Agustina Barbosa MD. documented in this [facility] Work Phone: 1(952) 834-531008-11-2023 NotePost Operative Note: PreOp Diagnosis: Right sinonasal inverted papilloma, chronic sinusitis Post-Procedure Diagnosis: Same Procedure: 1. Right nasal endoscopy with total ethmoidectomy including sphenoidotomy with tissue removal CPT 77189-K-29 2. Right nasal endoscopy with frontal sinusotomy CPT 44244-L 3. Right maxillary endoscopy with tissue removal 41913-E 4. Extracranial CT image guidance CPT 25974 Surgeon: Familia Resident/Fellow/Other Architectural Drafter: None Anesthesia: GET Estimated Blood Loss (mL): [...] middle turbinate was resected (more content not included)...[facility] 05-15-2023 Miscellaneous Notes* Op Note - Dominick Barbosa MD - 05/15/2023 4:37 PM EDT Post Operative Note: PreOp Diagnosis: Right sinonasal inverted papilloma, chronic sinusitis Post-Procedure Diagnosis: Same Procedure: 1. Right nasal endoscopy with total ethmoidectomy including sphenoidotomy with tissue removal CPT 04504-L-74 2. Right nasal endoscopy with frontal sinusotomy CPT 07854-S 3. Right maxillary endoscopy with tissue removal 41333-R 4. Extracranial CT image guidance CPT 52661 Surgeon: Familia Resident/Fellow/Other Architectural Drafter: None Anesthesia: GET Estimated Blood Loss (mL): [...] 17:00 by Dominick Barbosa) documented in this [facility] Work Phone: 1([phone]) 803-218508-11-2023 Note* Op Note - Dominick Barbosa MD - 05/15/2023 4:37 PM EDT Post Operative Note: PreOp Diagnosis: Right sinonasal inverted papilloma, chronic sinusitis Post-Procedure Diagnosis: Same Procedure: 1. Right nasal endoscopy with total ethmoidectomy including sphenoidotomy with tissue removal CPT 30739-F-96 2. Right nasal endoscopy with frontal sinusotomy CPT 81881-B 3. Right maxillary endoscopy with tissue removal 60945-V 4. Extracranial CT image guidance CPT 20493 Surgeon: Familia Resident/Fellow/Other Architectural Drafter: None Anesthesia: GET Estimated Blood Loss (mL): [...] Last Updated: 15-May-2023 17:00 by Dominick Barbosa) [facility] Work Phone: 1(562) 505-989708-11-2023 History of Present illness Narrative* Wale presents for his first postoperative visit following right-sided sinus surgery in 05/15/23. * Following his surgery he has done well. He has been having some headaches that are controlled with Tylenol. His breathing has been significantly improved. He is rinsing several times per day. He denies significant nasal drainage. [facility] Work Phone: 1([phone]) 459-798408-11-2023 NoteHistory of Present Illness: History Present Illness: [...] Completion Last Updated: 15-May-2023 11:51 by Dominick Barbosa)[facility]08-11-2023 History and physical note* Dominick aBrbosa MD - 05/15/2023 11:49 AM EDT History [...] Updated: 15-May-2023 11:51 by Dominick Barbosa) [facility] Work Phone: 1(277) 509-312408-11-2023 History and physical note* Dominick Barbosa MD [...] 11:51 by Dominick Barbosa) [facility] Work Phone: 1(709) 481-386804-05-2023 Evaluation note* Encounter Date Diagnosis Assessment Notes Treatment Notes Treatment Clinical Notes Jan, Inverted papilloma of nasal cavity (ICD-10 - D14.0) [employer] Other 04-04-2023 Chief complaint Narrative - Reported* [...] on positive pressure [facility] [address] Work Phone: 1(234) [phone] History of Present illness Narrative* Reason for visit: * WALE GREY patient presents since last being seen 01/06/23. * Wale presents for routine follow-up. He is interested in going forward with his inverted papillomaresection and would like to schedule it as soon as there is availability. [facility] Work Phone: [phone] History of Present illness Narrative* Reason for visit: * WALE GREY patient presents since last being seen 01/06/23. * Wale presents for routine follow-up. 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 [facility] [address] Work Phone: 1([phone]) 509-554304-03-2023 Evaluation note* Encounter Date Diagnosis Assessment Notes [...] for congestion, Tylenol for pain and fever. [employer] Other 12-01-2020 History of Present illness Narrative* [...] and is using flonase only as needed. X[facility]Wvbipbgwrpovfi-Mkbkbhxz Work Phone: 1([phone]) 555-389812-01-2020 History of Present illness Narrative* Reason for [...] well outside of some nasal breathing issues. [facility] Work Phone: Evaluation note* Diagnosis Chronic ethmoidal sinusitis Benign neoplasm of middle ear, nasal cavity and accessory sinuses Benign neoplasm of nasal cavities, middle ear, and accessory sinuses Chronic sinusitis, unspecified documented in this encounter [facility] Work Phone: Evaluation note* Diagnosis Chronic ethmoidal sinusitis- Primary Other chronic sinusitis Chronic sphenoidal sinusitis documented in this encounter [facility] Work Phone: Evaluation note* Diagnosis Chronic ethmoidal sinusitis- Primary Chronic maxillary sinusitis documented in this encounter [facility] Work Phone: Evaluation note* Diagnosis Onset Date Resolution Status Bulging lumbar disc acute Elevated BP without diagnosis of hypertension acute Low back pain acute Obesity acute Wellness examination acute [facility] Work Phone: Evaluation note* Diagnosis Post-nasal drainage- Primary Other diseases of nasal cavity and sinuses Chronic maxillary sinusitis Nasal congestion Other diseases of nasal cavity and sinuses documented in this encounter [facility] Work Phone: Evaluation note* Diagnosis Onset Date Resolution Status Bulging lumbar disc acute Elevated BP without diagnosis of hypertension acute Low back pain acute Obesity acute Wellness examination acute IFG (impaired fasting glucose) acute Acute sinusitis noneactive [facility] Work Phone: Evaluation note* Diagnosis 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, middle ear, and accessory sinuses Chronic sphenoidal sinusitis Chronic maxillary sinusitis documented in this encounter [facility] Work Phone: Evaluation note* Diagnosis 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 FF[facility]ijdouaegltkvv-[facility]uwvyhiQu[facility] [address] Work Phone: Reason for referral (narrative)No reason for referral information [facility] Work Phone: Summary Purpose Family History No [...] Complaint and Reason for Visit Chief Complaint [facility] Reason for Visit Bulging lumbar disc Elevated BP without diagnosis of hypertension Low back pain Obesity Wellness examination Chief Complaint [facility] [phone] sinus infection Reason for Visit Bulging lumbar [...] and content) DATE CREATED AUTHOR 03/06/2020 [facility]one Bl[facility] DATE CREATED AUTHOR AUTHOR'S ORGANIZ ATION [facility]/24/2022 [facility] DATE CREATED AUTHOR AUTHOR'S ORGANIZ ATION 05/28/2023 [employer] DATE CREATED AUTHOR AUTHOR'S ORGANIZ ATION 06/05/2023 [facility] DATE CREATED AUTHOR AUTHOR'S ORGANIZ ATION 07/15/2025 [facility] DATE CREATED AUTHOR AUTHOR'S ORGANIZ ATION 07/15/2025 [facility] REASON FOR VISIT (unrecogniz ed section and content) Reason Comments Other Right endoscopic sin us surgery with image guidance, right endoscopic medial maxillectomy, septoplasty Reason Comments Follow-up Care Teams (unrecognized sec tion and content) Funeral Director/Embalmer/Owner Relationship Specialty Start Date End Date Enzo Vasques DO PCP - General 09/21/19 Funeral Director/Embalmer/Owner Relationship Specialty Start Date End Date Enzo Vasques DO PCP - General 09/21/19 Funeral Director/Embalmer/Owner Relationship Specialty Start Date End Date Enzo Vasques DO PCP - General 09/21/19 Cristiana Triplett APRN-SR [employer] [address] [place] [address] PCP - Cyndie ENCISO PCP 09/04/23 Team Status: Active Member Role Status Dates Enzo Vasques DO Primary Care Provider Active Team Status: Inactive Member Role Status Dates Enzo Vasques DO Primary Care Provide r, Attending Provider Active Start: June 03, 2024 End: June 03, 2024 Funeral Director/Embalmer/Owner Relationship Specialty Start Date End Date Enzo [...] January 16, 2025 End: January 16, 2025 Funeral Director/Embalmer/Owner Relationship Specialty Start Date End Date Enzo Vasques DO PCP - General 09/21/19 Team Status: Inactive Member Role Status Dates Enzo Vasques DO Primary Care Provider Active Start: May 23, 2025 End: May 23, 2025 Enzo Vasques DO Attending Provider Active Sta rt: May [...] BE BASED ON THE PRIMARY CLINICAL RECORDS. [facility]. provides no warranty or guarantee of the accuracy or completeness of information in this document.
--- NOTE | 2025-07-19 15:29 | PM.CN ---
Consult Note: HPI Data of Consult Patient: known to practice within the last 3 years Requesting Physician: Shaneka Pena NP Primary Care Provider: Enzo Vasques DO Family Provider: Enzo Vasques DO Consult Narrative Reason for consult: low back and LLE pain Narrative: Wale heredia pleasant 24 year old male presents for evaluation of chronic low back and LLE pain, hx of low back and LLE > 12 months worsening over the last month without injury/fall. Pain today 4/10 sharp, increasing to 8/10 with all activity, no improvement with heat or ice. mild relief with lying down. previously reported numbness tingling weakness, denies today. denies muscle spasms/cramping. previously failed tylenol, motrin, heat, ice, flexeril, baclofen, gabapentin, and > 6 weeks of PT/HEP. prior lumbar MRI consistent with multilevel stenosis and bulging disc. no recent NS consultation. recently underwent left L4-5 L5-S1 TFESI with 50% improvement per pt, however he has not been as active as his usual baseline. cc:: CC: Shaneka Pena NP Review of Systems ROS Musculoskeletal Reports: back pain and extremity pain PFSH PFS Medical History History of inverted papilloma ?Z86.018 - Personal history of other benign neoplasm (ICD-10) Sleep apnea ?G47.30 - Sleep apnea, unspecified (ICD-10) Asthma ?J45.909 - Unspecified asthma, uncomplicated (ICD-10) Pre-diabetes ?R73.03 - Prediabetes (ICD-10) Surgical History History of sinus surgery ?Z98.890 - Other specified postprocedural states (ICD-10) Meds Home Medications and Allergies Home Medications ?Medication ?Instructions ?Recorded ?Confirmed ?Type metformin 850 mg tablet 850 mg PO DAILY 07/04/24 07/10/25 History baclofen 10 mg tablet 10 mg PO BID 07/28/24 07/10/25 History amlodipine 5 mg tablet 5 mg PO DAILY 01/10/25 07/10/25 History pregabalin 75 mg capsule (Lyrica) 75 mg PO BID #60 caps 06/15/25 07/10/25 Rx telmisartan 20 mg tablet 20 mg PO DAILY 06/15/25 07/10/25 History Allergies Allergy/AdvReac Type Severity Reaction Status Date / Time No Known Drug Allergies Allergy Verified 07/10/25 08:54 Exam Constitutional Documenting provider has reviewed patient's vital signs: yes Common normals: no apparent distress, oriented x3, healthy appearing, alert and well nourished General appearance: cooperative HENMT Common normals: normocephalic, hearing grossly normal bilaterally and moist oral mucous membranes Head and scalp: normocephalic Eye Common normals: PERRL Pupil: PERRL Neck & C-Spine Common normals: full ROM General: normal visual inspection Chest Common normals: inspection of chest normal Respiratory Common normals: normal respiratory effort, no retractions and no use of accessory muscles Back & Pelvis Lumbar spine/lower back: ROM limited, pain with ROM, lumbar spinal tenderness and straight leg raise positive left; no paraspinal muscle tenderness and no paraspinal muscle spasm Other: pain following left L5,S1 strength 5/5 in BLE Neuro Common normals: oriented x3 Sensorium/orientation: alert Psych Common normals: mental status grossly normal, thought process normal, cooperative, affect normal, speech normal and activity/motor behavior normal Speech: normal speech Thought process: normal thought process Results Additional Findings Additional findings: If on a controlled substance or opioids, I have checked an [place]AR[place] report on this patient and there are no aberrancies noted in the prescribing history.??If on a controlled substance or opioid a drug screen was completed and reviewed within the last year, and if there has not been a drug screen completed we ordered one today to monitor higher risk, state monitored pain medication use. As part of providing excellent, safe, comprehensive care, the following was completed at our patient's visit: 1. A medication reconciliation and review to ensure accurate knowledge of current/active medications, including asking our patients to inform us about any jywp-icf-jdmxrwe medications or herbal remedies/nutritional supplements/alternative remedies. 2. A review to specifically ensure our patients have had annual screening for screening for depression, screening for tobacco use, and screening for unhealthy alcohol use. For concerning screenings had a discussion with the patient, provided patient education, and recommended follow-up with primary care provider when appropriate. If patient noted with a risk of falling, they received education on strength, gait, and balance training to prevent future risk of falling. Portions of this note may have been carried over from the previous visit and updated as appropriate. Please note this office utilizes paper charting in addition to the electronic medical record. A list of current medications, vitals, and PMH is available there as the clinical staff outside of myself do not have access to [id number] charting during the clinic day operations. As part of providing quality comprehensive care the current medications, vitals, and PMH were reviewed in the paper chart. Assessment and Plan Assessment and Plan (1) Degenerative disc disease (DDD) of lumbar region with discogenic back pain and leg pain: (2) Lumbar stenosis with neurogenic claudication: Assessment and Plan: The patient has had over 3 months of moderate to severe low back and LLE pain with functional impairment and inadequate response to conservative care including NSAIDS (unless there are contraindication such as concurrent blood thinners), multiple oral or topical pain medications, and home exercise program/physical therapy.? Patient has completed >6 weeks of guided home exercise program and/or formal physical therapy program without relief of their symptoms.? The Oswestry Disability Index was completed, and the patient scored a 24%.?previously 44% 07/10/25 left L4-5 L5-S1 TFESI 50% improvement 09/12/24 left L4-5 L5-S1 TFESI >50% improvement in radicular/NC pain at least 3 months (3) Lumbar radiculopathy: (4) Lumbar spondylosis: Assessment and Plan: 02/13/25 bilateral L4-5 L5-S1 facet RFA 50% improvement in facet mediated low back pain (5) Lumbar disc displacement without myelopathy: (6) Myalgia: Plan increase pregabalin 75mg TID, risks vs benefits reviewed update lumbar MRI without contrast to assess lumbar ddd with back and LE pain defer NSAIDs with chronic uncontrolled HTN, continue f/u with PCP advised weight loss refer to Dr Raygoza for NS consultation once lumbar MRI complete f/u after NS consultation
== END 2025-07-19 15:07 | disposition home or self-care (01) ==
LOC: PM 15:07
PROVIDERS: Family Provider Internal Medicine; PCP Internal Medicine; Visit Provider Nurse Practitioner
DX: M51.362 Other intervertebral disc degeneration, lumbar region with discogenic back pain and lower extremity pain (principal); M48.062 Spinal stenosis, lumbar region with neurogenic claudication; M54.16 Radiculopathy, lumbar region; M47.816 Spondylosis without myelopathy or radiculopathy, lumbar region; M51.26 Other intervertebral disc displacement, lumbar region; M79.10 Myalgia, unspecified site
CPT/HCPCS: G0463

== ENCOUNTER 2025-07-31 06:48 | Outpatient (OUT) | payer BC, SELFPAY ==
--- NOTE | 2025-07-31 06:52 | MR_ITS ---
The [address] [address] Patient Name: HAKAN MI MRN: [id number] date: 2000 Sex: M Assigned Patient Location: MRI Current Patient Location: MRI Accession/Order Number: [id number] Exam Date: 07/31/2025 06:58 Report Date: 07/31/2025 11:31 At the request of: LBUA BAKER NP Procedure: MR lumbar spine wo con MR LUMBAR SPINE WITHOUT CONTRAST COMPARISON: 07/11/2024, plain films 06/15/[address] 01/12/2017 CLINICAL DATA: Chronic back pain with radiation to the left leg. Multiecho imaging in the axial and sagittal plane was performed without contrast. Subtle levoscoliotic curvature is seen. There is redemonstration of bilateral L5 spondylolysis with slight anterolisthesis of L5 with respect to adjacent vertebra. Alignment is otherwise maintained. There are no acute compression fractures or marrow edema. The conus medullaris is within normal limits for caliber, position and signal intensity. No paraspinal soft tissue abnormalities are identified. At T12-L1 there are no axial images however there is still a focal right parasagittal/foraminal protrusion with slight associated thecal sac effacement and mild inferior foraminal encroachment. At L1-2, there is continued asymmetric right parasagittal/foraminal protrusion. There is mild facet disease. No prominent thecal sac effacement is visualized though there is moderate right foraminal encroachment. At L2-3, there is mild disco-osteophytic bulging at the neural foramen, left greater than right. There is some facet hypertrophy. There is subtle thecal sac effacement. Mild right and mild to moderate left foraminal encroachment is noted. At L3-4, there is mild annular disc bulging with a small broad-based central/right parasagittal protrusion showing caudal extension similar to the prior. There is bilateral facet and ligamentous hypertrophy, greater on the right. Mild to moderate thecal sac effacement is present. There is mild right and mild to moderate left foraminal encroachment. At L4-5, there is slight loss of disc height and disc desiccation. There is annular disc bulging with a broad-based central protrusion centrally and slightly caudal extension of disc material. This is slightly more prominent than the prior. There is bilateral facet hypertrophy, left worse than right. There is no significant thecal sac effacement given the spondylolisthesis. There is mild right and mild to moderate left foraminal impingement. At the lumbosacral junction is minor annular disc bulging with a persistent asymmetric protrusion at the left neural foramen. There is facet hypertrophy, greater on the left. No thecal sac effacement is present. There is mild right and moderate to severe left foraminal impingement. MR/MR lumbar spine wo con IMPRESSION: NO ACUTE COMPRESSION FRACTURES. L5 SPONDYLOLYSIS WITH ASSOCIATED SPONDYLOLISTHESIS. CONTINUED MULTILEVEL DISCOVERTEBRAL DEGENERATIVE CHANGES, OUTLINED ABOVE. Impression dictated by: Nelly Basurto M.D. 07/31/2025 11:31 AM Dictation Location: [place] [address] Electronically authenticated by: [id number] Y Date: 07/31/2025 11:31
--- OUTSIDE RECORDS SUMMARY | 2025-07-31 06:52 | XMS_ITS | Clinical Summary ---
Author Organization [facility] Healthcare Address [address] [place] [address] Care Team Providers Care Keeper Helper Name Role Phone Unavailable Primary Care Provider Unavailabl e Social History Tobacco UseTypesPacks/DayYears UsedDateSmoking Tobacco: Never AssessedSex and Gender InformationValueDate RecordedSex Assigned at BirthNot on fileLegal Sex Male12/17/2022 7:05 PM EDTGender IdentityNot on fileSexual OrientationNot on file Last Filed Vital Signs Vital SignReadingTime TakenCommentsBlood Cwwfxsaj945/7608110/08/2022 12:00 PM EST Pulse--Temperature--Respiratory Rate--Oxygen Saturation--Inhaled Oxygen Concentration--Uzjupr903 kg (400 lb)10/08/2022 12:00 PM RYCEnvtir581.9 cm (6') 10/08/2022 12:00 PM ESTBody Mass Index54.25010/08/2022 12:00 PM EST Plan of Treatment Not on file Insurance
--- OUTSIDE RECORDS SUMMARY | 2025-07-31 06:52 | XMS_ITS | Clinical Summary ---
Author Organization [facility] Address [address] [place] [address] Phone Care Team Providers Care Brazing Machine Operator Automatic Name Role Phone Enzo Vasques Primary Care Provider [phone] Allergies No known active allergies Medications MedicationSigDispense QuantityRefillsLast FilledStart DateEnd DateStatus mometasone furoate, bulk, 100 % powder Indications:Other chronic sinusitisCompound 2 mg capsule to be added to sinus rinse twice daily. 180 g 3Active metFORMIN (Glucophage) 850 mg tablet Take 1 tablet (850 mg) by mouth early in the morning..4Active pregabalin (Lyrica) 75 mg capsule 5Active amLODIPine (Norvasc) 5 mg tablet Take 1 tablet (5 mg) by mouth early in the morning..5Active cyclobenzaprine (Flexeril) 10 mg tablet Take 1 tablet (10 mg) by mouth 3 times a day as needed for muscle spasms. 5Active telmisartan (MIcarDIS) 20 mg tablet Take 1 tablet (20 mg) by mouth early in the morning..5Active amoxicillin-clavulanate (Augmentin) 875-125 mg tablet Indications:Chronic sphenoidal sinusitisTake 1 tablet by mouth 2 times a day for 7 days. 14 tablet /Expired Active Problems No known active problems Encounters DateTypeDepartmentCare VjfxAkqrbhajidj24/08/2025 3:00 PM EDTOffice Visit [facility] [address] [place] [address] Dominick Barbosa MD Chronic sphenoidal sinusitis (Primary Dx); Nasal hsnhrvsiga37/07/2025Travelfrom Last 3 Months Family History Medical HistoryRelationNameCommentsDiabetesFatherRobert MatherneHeart failure FatherRobert MatherneHypertensionFatherRobert MatherneDiabetesMaternal GrandfatherKenneth DixDiabetesMaternal GrandmotherCheryl AbelThyroid disease MotherKelly MaynardRelationNameStatusCommentsFatherRobert MatherneAliveMaternal GrandfatherKenneth DixAliveMaternal GrandmotherCheryl AbelAliveMotherKelly MaynardAlive Social History Tobacco UseTypesPacks/DayYears UsedDateSmoking Tobacco: NeverSmokeless Tobacco: Never Tobacco Cessation:Counseling Given: Not Answered Alcohol UseStandard Drinks/WeekCommentsNever0 (1 standard drink = 0.6 oz pure alcohol)PHQ-2AnswerDate RecordedPatient Health Questionnaire-2 Oqtcb339 Sex and Gender InformationValueDate RecordedSex Assigned at BirthNot on file Legal KahFdpc56/25/2022 8:12 PM ESTGender IdentityNot on fileSexual Orientation Not on file Last Filed Vital Signs Vital SignReadingTime TakenCommentsBlood Vfeurrgi395/9108 11:49 AM EDT Trijj683305/15/2023 11:49 AM UYAPvyjgxsadkg60 ??C (96.8 ??F)05/15/2023 11:49 AM EDTRespiratory Xkrz933105/15/2023 11:49 AM EDTOxygen Saturation--Inhaled Oxygen Concentration--Jfpobp761 kg (411 lb 14.4 oz)07/12/2025 3:16 PM RKKOhutpw536.9 cm (6')07/12/2025 3:16 PM EDTBody Mass Index55.8607/12/2025 3:16 PM EDT Plan of Treatment DateTypeDepartmentCare Team (Latest Contact Info)Pnizuputzoq64/15/2026 3:15 PM EDTOffice Visit [facility] [address] [place] [address] Dominick Barbosa MD [address] [facility] [address] [place] [address] Health MaintenanceDue DateLast DoneCommentsHIV Iuulzyflh2000Lipid Panel 2000Yearly Adult Lkxfngji2000HPV Vaccines (1 - Male 3-dose series) 2015Hepatitis C Qhqabkiwp69/19/2018DTaP/Tdap/Td Vaccines (7 - Td or Tdap) /, 10/31/2004, 08/01/2002, Additional history existsDiabetes Uyimebafg93/08/144235/05/2023Influenza Vaccine (#1)5COVID-19 Vaccine (2 - season)/05/2021Zoster Vaccines (1 of 2)2050 09/23/2001HIB FvbxzpvkDnrgmyxxc55/20/2001, 01/21/2001, 2000Hepatitis B AtrnabusPdhffibvn73/20/2001, 2000, 2000Pneumococcal Vaccine: Pediatrics and At-Risk Adult PatientsAged Out05/05/2003, 03/31/2001, 01/21/2001, Additional history existsNo longer eligible based on patient's age to complete this topicIPV XmqbzbpeKepbxmohn41/27/2005, 03/31/2001, 01/21/2001, Additional history existsMMR BfwzshbuYvitqiqxy16/27/2005, 09/23/2001Meningococcal Vaccine Phfwxsees50/22/2018Hepatitis A VaccinesAged OutNo longer eligible based on patient's age to complete this topicRotavirus VaccinesAged OutNo longer eligible based on patient's age to complete this topic Procedures Procedure NamePriorityDate/TimeAssociated DiagnosisCommentsBASIC METABOLIC PANEL Today05/12/2023 1:29 PM EDT from Last 3 Months or Most Recently Relevant to Health Maintenance Results * Basic Metabolic Panel (05/12/2023 1:29 PM EDT)ComponentValueRef RangeTest MethodAnalysis TimePerformed AtPathologist AbxdflnrjMmafozg4204 - 99 mg/dL [facility] QXWMqvfhy441142 - 145 mmol/[facility] LABPotassium4.53.5 - 5.3 mmol/[facility] EPLXdcnbxcq50421 - 107 mmol/[facility] IGYTkljwatdxxb2927 - 32 mmol/[facility] Anion Xel4244 - 20 mmol/LUHCMC LABUrea Kikrmtup288 - 23 mg/dLLE[facility] Creatinine0.810.50 - 1.30 mg/dLLE[facility] LABGFR MALE>90>90 mL/min/1.85y1SDUEI LAB Comment: CALCULATIONS OF ESTIMATED GFR ARE PERFORMED USING THE 2020 CKD-EPI STUDY REFIT EQUATION WITHOUT THE RACE VARIABLE FOR THE IDMS-TRACEABLE CREATININE METHODS. https://jasn.asnjournals.org/content//ASN.7031477804 Calcium9.88.6 - 10.6 mg/dLLECOM [facility]ALTH [facility] LABSpecimen (Source)Anatomical Location / LateralityCollection Method / VolumeCollection TimeReceived Time05/12/2023 1:29 PM EDT05/12/2023 5:21 PM EDT Narrative Authorizing ProviderResult TypeResult StatusDominick LEWIS BLOOD ORDERABLESFinal ResultPerforming OrganizationAddressCity/State/ZIP CodePhone Number [facility] [address] [phone] from Last 3 Months or Most Recently Relevant to Health Maintenance Insurance * Guarantor: Wale GreyAccount TypeRelation to PatientDate of BirthPhone Billing AddressPersonal/FalxjvTveu2000 [facility] [place] [address] Care Teams Team MemberRelationshipSpecialtyStart DateEnd Date Enzo Vasques DO PCP - Zdxuwdu62/18/19
--- OUTSIDE RECORDS SUMMARY | 2025-07-31 06:52 | XMS_ITS | CCD ---
Author Organization [facility] CliniSyoh Care Team Providers Care Hospitalist Physician Name Role Phone Virginia Enzo Segovia Unavailable [...] gutierrez Vasques, Dr. Enzo Diallo Primary Care Dollyvaginna beaulieu Virginia DO, Enzo Diallo Primary Care Provider U navailable Virginia DO, Enzo Diallo Primary Care Provider Enzo Vasques DO Primary Care Provider carmenon FACING CUTTING MACHINE OPERATOR-REEL WORKER, Cristiana Jose Unavailable [phone] Enzo Vasques DO Primary Care Provider Virginia SHER, Enzo Primary Care Provider [phone] Virginia SHER, Enzo Attending Provider Giashelyitis , Andrius Durán Attending Unavailable Giedraitis , Andrius Vytvipin Attending Unavailable Giedraitis MD, Andrius Vytautas Attending Unavailable Giedraitis MD, Andrius Vytautricardo Attending Unavailable Giedraitis , Andrius Vlyn Attending Unavailable DOMINICK BARBOSA Attending Unavailable ENZO VASQUES Primary Care Unavailable DOMINICK BARBOSA Attending Unavailable ENZO VASQUES Primary Care Unavailable DOMINICK BARBOSA Attending Unavailable ENZO VASQUES Primary Care Unavailable Allergies Allergy ClassificationReported Allergen(s)Allergy TypeDate of OnsetReaction(s) Facility (8 sources)bee pollenAllergy to substance (finding)ES-Lgtbxxqamwhhxz-Fnhodzxe Work Phone: (1 source)patient allergy list reviewed by nurse or physiciaPropensity to adverse [id number]:mii Other Medications Current Medications MedicationDrug Class(es)DatesSig (Normalized)Sig (Original)amLODIPine 5 mg oral tablet (5 sources)Dihydropyridine Calcium Channel BlockerStart: 34-93-9198ujhx 1 tablet by mouth in the morningamLODIPine (Norvasc) 5 mg tablet Take 1 tablet (5 mg) by mouth early in the morning.. 05/15/2025 ActiveStart: 56-53-5338ljna 1 tablet by mouth once dailyAmlodipine 5 mg tablet Active 0 .ROUTE .COMPLEX 90 December 20, 2024 7:06am TAKE 1 TABLET BY MOUTH EVERY DAY Complies with drug therapyStart: 09-14-2024 End: 54-08-7276oiup 1 tablet by mouth once dailyAmlodipine (Norvasc) 5 mg tablet Discontinued 5 MG PO Daily September 14, 2024 1:00am December 20, 2024 7:06amamoxicillin 875 mg / clavulanate 125 mg oral tablet (12 sources)Penicillin-class AntibacterialStart: 07-12-2025 End: 89-19-8584uusc 1 tablet by mouth twice dailyamoxicillin-clavulanate (Augmentin) 875-125 mg tablet Indications: Chronic sphenoidal sinusitis Take 1 tablet by mouth 2 times a day for 7 days. 14 tablet 07/12/2025 07/19/2025 Active Start: 08-70-7091qbig 1 tablet by mouth every twelve hoursAmoxicillin-Pot Clavulanate 875-125 MG 1 tablet Orally every 12 hrs for 7 days Oct, ActiveStart: 11-26-2021 End: 95-57-1874qiiv 1 tablet by mouth twice dailyAmoxicillin-Pot Clavulanate 875-125 MG Oral Tablet TAKE 1 TABLET TWICE DAILY UNTIL FINISHED. Quantity: 20 Refills: 0 Ordered: 12-Nov-2022 Dominick Barbosa MD Start : 12-Nov-2022 End : 18-Mar-2023 Completecyclobenzaprine hydrochloride 10 mg oral tablet (3 sources)Muscle RelaxantStart: 55-38-7985hcue 1 tablet by mouth three times daily as needed for muscle spasmscyclobenzaprine (Flexeril) 10 mg tablet Take 1 tablet (10 mg) by mouth 3 times a day as needed for muscle spasms. 01/19/2025 Activegabapentin 300 mg oral capsule (2 sources)Anti-epileptic AgentStart: 20-96-7335ibbr 1 capsule by mouth once daily at bedtimeGabapentin 300 mg capsule Active 300 MG PO Daily at bedtime January 16, 2025 12:00am Complies with drug therapymetFORMIN hydrochloride 850 mg oral tablet (11 sources)BiguanideStart: 40-46-9425edjf 1 tablet by mouth once dailyMetformin 850 mg tablet Active 0 .ROUTE .COMPLEX 90 February 14, 2025 6:46am TAKE 1 TABLET BY MOUTH EVERY DAY Complies with drug therapyStart: 06-16-2024 End: 62-42-3920uctg 1 tablet by mouth in the morningmetFORMIN (Glucophage) 850 mg tablet Take 1 tablet (850 mg) by mouth early in the morning.. 06/17/2024 Activemometasone furoate, bulk, 100 % powder (6 sources)Start: 26-46-0438ctdemwcnnx furoate, bulk, 100 % powder Indications: Other chronic sinusitis Compound 2 mg capsule to be added to sinus rinse twice daily. 180 g 3 09/03/2023 Activepregabalin 75 mg oral capsule (1 source)Start: 10-59-8249vmkhjktujn (Lyrica) 75 mg capsule 06/16/2025 Active telmisartan 20 mg oral tablet (4 sources)Angiotensin 2 Receptor BlockerStart: 14-40-7718yrcl 1 tablet by mouth once dailyTelmisartan 20 mg tablet Active 0 .ROUTE .COMPLEX 90 May 14, 2025 5:43pm TAKE 1 TABLET BY MOUTH EVERY DAY FOR 30 DAYS Complies with drug therapy Start: 01-16-2025 End: 73-91-6469ieve 1 tablet by mouth in the morningtelmisartan (MIcarDIS) 20 mg tablet Take 1 tablet (20 mg) by mouth early in the morning.. 04/12/2025 Active Completed/Discontinued Medications MedicationDrug Class(es)DatesSig (Normalized)Sig (Original)Acetaminophen (1 source)Tylenol TABS Quantity: 0 Refills: 0 Ordered: 27-May-2023 DO Active cefdinir 300 mg oral capsule (2 sources)Cephalosporin AntibacterialStart: 28-64-8160nxzv 1 capsule by mouth twice dailyCefdinir 300 MG Oral Capsule TAKE 1 CAPSULE BY MOUTH TWICE A DAY Quantity: 14 Refills: 0 Ordered: 25-Aug-2022 DO Start : 25-Aug-2022 Complete cefuroxime 500 mg oral tablet (3 sources)Cephalosporin AntibacterialStart: 08-08-2024 End: 81-47-3938jfnf 1 tablet by mouth twice dailyCefuroxime Axetil 500 mg tablet Discontinued 500 MG PO Twice daily 17 04August 08, 2024 1:00am January 16, 2025 4:15pmnabumetone 750 mg oral tablet (9 sources)Nonsteroidal Anti-inflammatory DrugStart: 06-03-2024 End: 31-00-3751jtiw 1 tablet by mouth twice dailyNabumetone 750 mg tablet Discontinued 750 MG PO Twice daily June 03, 2024 12:00am September 14, 2024 5:07pmStart: 25-07-7750tust 1 tablet by mouth twice daily at mealtimeNabumetone 750 MG Oral Tablet TAKE 1 TABLET BY MOUTH TWICE A DAY WITH FOOD Quantity: 30 Refills: 0 Ordered: 24-Jun-2022 DO Start : 24-Jun-2022 CompletepredniSONE 20 mg oral tablet (2 sources)Start: 46-06-5240ilsmxgXCIL 20 MG Oral Tablet TAKE 1 TAB THREE TIMES DAILY W/ FOOD X 3 DAYS THEN TWICE A DAY W/ FOODX 2 DAYS THEN W/ FOOD X 3 DAY Quantity: 18 Refills: 0 Ordered: 18-Feb-2022 DO Start : 18-Feb-2022 Complete Semaglutide (5 sources)Start: 09-14-2024 End: 99-29-9414Vjtceysjnwh (Ozempic) 0.25 mg or 0.5 mg (2 mg/3 mL) pen injector Discontinued 0.25 MG SUBCUT every week 1.472 September 14, 2024 1:00am January 16, 2025 4:17pm for 4 weeksStart: 06-09-2024 End: 98-97-8655Bwrrftmoxvf (Ozempic) 0.25 mg or 0.5 mg (2 mg/3 mL) pen injector Discontinued 0.25 MG SUBCUT every week 3 June 09, 2024 12:00am June 16, 2024 10:01pm for 4 weeksStart: 06-09-2024 End: 31-65-3000Borbmmwdqoy (Ozempic) 0.25 mg or 0.5 mg (2 mg/3 mL) pen injector Discontinued 0.25 MG SUBCUT every week 3 June 08, 2024 11:00pm June 16, 2024 9:01pm for 4 weekssodium chloride 0.111 meq/ml nasal solution (3 sources)Start: 39-48-2971rccs 5 spray(s) nasal route four times dailySB Saline Nose 0.65 % Nasal Solution 5 sprays each nostril four times per day Quantity: 1 Refills: 2 Ordered: 15-May-2023 Dominick Barbosa MD Start : 15-May-2023 ActivetiZANidine 2 mg oral tablet (2 sources)Central alpha-2 Adrenergic AgonistStart: 35-00-4586ybyn 1 tablet by mouth once daily at bedtimetiZANidine HCl - 2 MG Oral Tablet TAKE 1 TABLET BY MOUTH EVERYDAY AT BEDTIME Quantity: 15 Refills: 0 Ordered: 24-Jun-2022 DO Start : 24-Jun-2022 CompletetraMADol hydrochloride 50 mg oral tablet (2 sources)Opioid AgonistStart: 60-65-9722vdbp 1 tablet by mouth three times daily as neededtraMADol HCl - 50 MG Oral Tablet TAKE 1 TABLET 3 TIMES DAILY NEEDED. Quantity: 25 Refills: 0 Ordered: 15-May-2023 Dominick Barbosa MD Start : 15-May-2023 Active Problems Active Problems Problem ClassificationProblemDateDocumented DateEpisodic/ChronicAsthma (3 sources)Asthma without status asthmaticus; Translations: [Asthma, unspecified, unspecified status]Onset: 41-95-2951WjmcjurExxovfic mellitus without complication (7 sources)Hyperglycemia; Translations: [Hyperglycemia, unspecified]06-08-2024 EpisodicEssential hypertension (4 sources)Hypertensive disorder; Translations: [Essential (primary) hypertension]62-55-9841XcpanojNlaojahjpozat and screening for infectious disease (1 source)Contact with and (suspected) exposure to other viral communicable diseases; Translations: [Contact with and (suspected) exposure to COVID-19] EpisodicOther and unspecified benign neoplasm (11 sources)Benign neoplasm of nasal cavity; Translations: [Benign neoplasm of nasal cavities, middle ear, and accessory sinuses]EpisodicOther and unspecified benign neoplasm (9 sources)Benign neoplasm of middle ear, nasal cavity and accessory sinuses; Translations: [BENIGN DANAE MED EAR NASAL ACC SINUS]Onset: 44-36-9015UsqlxktcOktva and unspecified benign neoplasm (1 source)Benign neoplasm of nose, middle ear and accessory sinuses; Translations: [Benign neoplasm of middleear, nasal cavity and accessory sinuses] 23-76-4461MbzxdvksFewiu and unspecified benign neoplasm (2 sources)Benign neoplasm of sphenoidal sinus; Translations: [Benign neoplasm of middle ear, nasal cavity andaccessory sinuses]22-35-3484YwqdnmivRxihz circulatory disease (2 sources)Elevated blood-pressure reading without diagnosis of hypertension; Translations: [Elevated blood-pressure reading, without diagnosis of hypertension]58-43-3265RdxevhjyWucuo circulatory disease (2 sources)Elevated blood-pressure reading, without diagnosis of hypertension; Translations: [Elevated blood pressure reading without diagnosis of hypertension]85-87-5260HyohaqlaHivwq lower respiratory disease (8 sources)H/O: asthma; Translations: [Personal history of other diseases of respiratory system]EpisodicOther nervous system disorders (16 sources)H/O: respiratory disease; Translations: [Personal history of other specified diseases]EpisodicOther nervous system disorders (3 sources)Postoperative pain ; Translations: [Other acute postoperative pain] EpisodicOther nutritional; endocrine; and metabolic disorders (2 sources)Morbid (severe) obesity due to excess calories; Translations: [Morbid (severe) obesity due to excess calories]Onset: 38-42-0723NbginjwUndbt nutritional; endocrine; and metabolic disorders (2 sources)Body mass index (BMI) 50.0-59.9, adult; Translations: [Body mass index [BMI] 50.0-59.9, adult]Onset: 28-37-7736MwjjonkGxgbm nutritional; endocrine; and metabolic disorders (2 sources)Body mass index 40+ - severely obese; Translations: [Body mass index (BMI) 50.0-59.9, adult]Onset: 10-24-1686RoxpzebCajnp nutritional; endocrine; and metabolic disorders (6 sources)Obesity; Translations: [Obesity, unspecified]Onset: 06-17-2013 02-85-1859PtthtiyWjvwh nutritional; endocrine; and metabolic disorders (1 source)Morbid obesity; Translations: [Morbid (severe) obesity due to excess calories]ChronicOther nutritional; endocrine; and metabolic disorders (3 sources)Obesity, unspecified; Translations: [Obesity, unspecified]06-03-2024 ChronicOther upper respiratory disease (8 sources)Seasonal allergy; Translations: [Allergic rhinitis, cause unspecified]ChronicOther upper respiratory disease (1 source)Seasonal allergic rhinitis; Translations: [Other seasonal allergic rhinitis]Onset: 67-45-8783SswalxeQmnwb upper respiratory disease (1 source)Allergic rhinitis; Translations: [Allergic rhinitis, unspecified] Onset: 50-64-8197LljfylkHaaqj upper respiratory disease (1 source)Allergic rhinitis due to pollen; Translations: [Allergic rhinitis due to pollen]ChronicOther upper respiratory disease (9 sources)Nasal congestion; Translations: [Other disease of nasal cavity and sinuses]91-29-3998GtzqmmtuRqszv upper respiratory disease (2 sources)Polyp of nasal cavity; Translations: [Polyp of nasal cavity]Onset: 64-38-2963SyldfjulKegdj upper respiratory infections (20 sources)Chronic ethmoidal sinusitis; Translations: [Chronic ethmoidal sinusitis]Onset: 96-04-8291VjxdtmeNrqfq upper respiratory infections (7 sources)Acute maxillary sinusitis, unspecified; Translations: [Acute pharyngitis]Onset: 96-57-5970EfwgrqybQxottgdw codes; unclassified (1 source)Obstructive sleep apnea (adult) (pediatric); Translations: [Obstructive sleep apnea (adult) (pediatric)]Onset: 44-58-1465Jkwwnas Spondylosis; intervertebral disc disorders; other back problems (7 sources)Other intervertebral disc degeneration, lumbosacral region; Translations: [Disorder of lumbar disc]Onset: 763705-90-9400Nuceeaa Spondylosis; intervertebral disc disorders; other back problems (20 sources)Radiculopathy, lumbar region; Translations: [Intervertebral disc disorders with radiculopathy, lumbar region]Onset: 87-17-2603Yozbvarq Past or Other Problems Problem ClassificationProblemDateDocumented DateEpisodic/ChronicAbdominal pain (1 source)Abdominal pain; Translations: [Unspecified abdominal pain]Onset: 02-60-6239LxdmllteQkdpskcoc infection; unspecified site (1 source)Bacterial infectious disease; Translations: [Bacterial infection, unspecified, in conditions classified elsewhere and of unspecified site]Onset: 73-83-3017WpaehvfiNhktx acquired deformities (1 source)Other specified deforming dorsopathies, lumbar region; Translations: [OTH DEFORMING DORSOPATHIES LUMB RGN]Onset: 32-22-7412OcbaepznYoqcs and unspecified benign neoplasm (1 source)Benign neoplasm of skin of face; Translations: [Other benign neoplasm of skin of other parts of face]Onset: 06-48-3609DhtqgvyqLninq connective tissue disease (1 source)Abnormal posture; Translations: [ABNORMAL POSTURE]Onset: 03-25-2022 EpisodicUnclassified (6 sources)Onset: 09-02-2023 Resolved: Viral infection (1 source)COVID-19 Results Test NameValueInterpretationReference RangeFacilitySurgical pathology study Ordered By: Claudio Ireland on 12-75-6818Qnawuujczq comment Pasquale (Report) m6ubbRZiBNOgl3maHGDrfDOmDiAkJvKvKoXzSnstyPZjOCzlihSqLYwfv5DnN1YqEnHxGQycgxDrDJFv QplxfeakRUEsMLD9rrOm QSLwPZpmWSIfPVnkNq9kaBBkxIzoPsYhRBJwz7dnytFHROucUFEBIPv5f4jeYOJgNnK2uPZoAEmeW7kg qsFwkOEdW6Hyt3MrBSf7 cZ64SZJmgA9bpDCsYPwmxvGrLoZ0EQxbQJGbPjR2IWXflSIrVGLrY6ysWFCjEUbqLNCiPLofgWBaKRM2 wLznh5U7ySBmuVIgkQfb VkVpNrCuBdBXe9TvFPu3tNaaJ0BgGWWbYsV1gOPbXAXhJXswHRUhSGEifvT6jD19ZLhqqlS6vJCvj5Da q19ei517eT7gtCOsYNM4 NLBxZEIleAFvXBCtKNM8OFOgtHOpR0byLxMmcLPdM2ImGvDxnGVqU2OrXtTujFNqT9MeYkJhwXYsVDIi vPX9JMiko300OPZ0VqHn FD4wG6Iiv8L6pI0nyASgOYSqoYCjWlQwTRHdbm6ybNCdYWvhy8EiNXX8spA1wKBlpRXyBWPzSV16Xmlb n7MlDsehYTD1FYKgyvFx i7Sov1hwDyFkuzKlK5toD8BwGTYbNWAkZXZeLxAqzfIsh2Iao8GpmLYzgAz5d1drRRCeRBHapYauv4nu MCE4XSKaV2Q1oDDct5gp TFueWBJwoJS6uuP9LMkxJRPdbiR0zsJ9EJcxKBWpdMK2mhY6RVfjCOTzNhT8flO0VFlkNAJpPEV3EtFs PBDsw0SqlrglAmVup6Pe kLFvQLgaG68wk261PPStsgZaM5ncwLAhvauxoPTrjipkUWoietZ2KWUlPDJqQNtiFHKeRYJgAoPaoRLd ZzEwMzNcaGljaFxmMVxk IrKgPRBdEXwuS5qgAzQsUuYkTZNMfBT3xLDtu3joswZ5wYBmOI5zJUSxkXLtnkXzv9T6STH7rGImuU9l mXOhLMIhhEWsniRdyr69 uFZfoYG9VLIdVKXrmGZxrE9iEQFlJMVHtL5cpVTDwhYfbtPeWWOzpCoeab0KzTSuus1paVGhM8UpjHjz kVPbRFRrJAIweCmyoBZgNTLoCOIdsralr6XzWUFghYVgW0EvKG5uZTBmno26Pftajsnuly [facility] Work Phone: Pathology report Cancer NarrativeSurgical Pathology Case: [id number] Authorizing Provider: Dominick Barbosa MD Collected: 01/11/2025 1620 Ordering Location: [facility] Received: 01/11/2025 1620 Pathologist: Claudio Ireland MD Specimen: SINUS MASS RIGHT [facility] Work Phone: Pathology report final diagnosis Narrative l9gbiIJkFOYqvABxOAPzDXurqiGbKLRsvUGnX6IlatroQYsqNA1uIE7azOdgzHUlmDCmHBYwDuIqt5ye e989zMRcm4obPFWTkkem bFl2eXorV20ai4H5NgsjI6haUEMpLKkuPKZzZTwxeZVvVBc7KBLeuMCvepIpIvKoNGYrmUCnrDK3LVJk SW0ltikeSLziGQqrTZFg zgD6KCArvCDxN8PjXFBjVZ6fkbawBGO1ALidSLCpIPZ8MiEmABXkf2Rmwol9CzYofEf8e0mbVBFlDYKy nOcju9kjPDK9ZZBkcMJm S4uvqN8gKMSwPC4ggiecj1vsQValNPesMDJkuAO4rtS0BIYswFGyP5DoxR4eRVIbTKYnlsLydDpafC2x ZnMyMlxjZjEgUmlnaHQg y9jtuCXekDHsrmenbBWbTEPqNQFjkJNxZ5rfl72ud2QhKJMzbJyunM8dUTllkJ95GDH5JAUlkPaoDJgr pD60b9d2nZ5nCGIyPIzz KjvdhR3xrJ7yqDJhbX5fegGsEEjszA7utOLaLIEqcuwcrgHkl1buUC1lDZavE6rtT9ObOQOjYRzjoWos b7huTR4lVYzfoeNgfDSc FNCfdxNwhi1mKNAhIIGseJqsaBVdAqrfUWCiWU8xHGXmFRALi4L8qU8oTY6qJIOwemCuz2i2yTJfzzFl dDtzyBMlK7VjqEMwCUGda0kzP4qaXVSucsVnexyyHztaARSgpTXfGImmg4pfJRT0Tbyyhuntye [facility] Work Phone: Pathology report gross observation Narrative t9uioGGqMLOszEZCCSY0EBUmGK8vbYsddMp7mMncKRJklnM3fOKmMPiih8xnBEK0p5qvpiNPPhwzTITj LZ4yBMdtBPKsTW8cLrDq FGXfCxCqPMHahARzmfDcZoFqRFQobKJpxTL0EAHhQQ0mpnhiYCmeYWdbRIHzmcY7OUYpyTXnX8SvXUIf ML2qsmtiVQP2ISUXDlur Pb4rhJPppTNDGnuvOdRcTcLpCIGvFUGkPBDkq4trsbDZZOmaBGEFDPy5UMm4HXGhBRSirUWvs2S4PIdn c6xfw9UaJXJmZHr3dV0O ObzaKTB9MQQTVklsIsaypEubx6CynNRnHZCnEDtudGNsFFFpKRAvVUpkYiWXNdYuQcDmAox7QYM6JEPz OCe5ZIykVeXPGGHrWQS4 WRKoWMc6RZzyZPdohSAiUPUjBEHzQHNxEHldicK3q3syMJUirJSyUTB7HDrng3lcUSroRGZ3SRGrObDx AKOkFT0TVwPiVFI3NGK9 NFp7MdS9BIf8DGGFGvVmTlVuABz9CwW3WxJeZAl3YKb2SOyZXlWxRQukNUu8DKM7ZCZ9WiG1UZtomela KNz9GQDvHEndvaZiDRby DcowPRzoE78jqRQvYFTKPxrasCMbghkjqThoTkNzxZQuEuPyLGxemLOpyAYmGQ5ZWMy3xtZcPBJwIBVd RvMlMhOuOAz1ZSFiiP3q Lz1mbGLbvQ8zAPufHhPxNOMrr3l0aZD1vGNlcKH5aKMfoRsbYU4hvAWlYO9fYHrlh2QnhWDfYM93eBKl cgNqppVdBlObliQbYY9p r1XrzehwwICmVRCbwlClSHJkhKsyp0bpOCYhF47fhnZee0GtxLKtLYyupADyPBUvCfRdeAysj7IrAD6u SSX4miypHfUcKrAcgXCd EqekhPSlJnzfB86dTBSDpTHehIYtl1HjOTCodWHdY4puHJ8qUUFuk4EucQjxqoFjtuPslgmpNDKteDFz ZMPiQKC7zNYkf2OmR3rw WS9hiIBiOgwySHQ2LHPtRDUCzMCpt5RpC6riST5spUXtRT63jAEimWylv5TitFo8pOApPSucDA6tPMUu CLFsADK0DR4ygTZaNZ5B YIJrKgOwLOKzW2uiANDpHU8UX93ZGKofZSPeY69qo3LXg7Gwg8adrTvpe0RidFHoQE89IWXjpNHdNQS7 RW9gxMlkHRHpPYvvhRAaSEXITjtxsJHiczDIFf4=Cwpywhjigl [facility] Work Phone: Pathology report relevant history Narrative p1xklNQcWCXrv7ftVERalOIyZdMtMqPcEjAhGgh7EREgdoB4Cxj2ZZNtAJkvqJ0aLXLbHOcdV4zhwnNc yXYyZWHsGZu2xL2awUpwxW9dJtWcOvIaQMVPbOulwz9qQUDuIQJotoGeqVEyc9tnHPJdjQ== [facility] Work Phone: [facility] Work Phone: Surgical pathology studyon [id number] pathology studyPathology report.total SEE COMMENT Surgical Pathology Case: [id number] Authorizing Provider: Dominick Barbosa MD Collected: 01/11/2025 1620 Ordering Location: [facility] Received: 01/11/2025 1620 Pathologist: Claudio Ireland MD [...] specimen is entirely submitted in one cassette. [facility] AmbulatorySurgical pathology studyOrdered By: Shakir Ford on 14-44-7647Siococyxjz comment Pasquale (Report) n3rbkFDoEJMij4olUCEtyKWfIwBmLbVgLsKjHuvrlSWbQWjehmJaCLzgj5WzZ5OpPnOwPRiavjEuBJPn XihrulkaCZQmNLH9qaWv EUUfUCkpBJAjFEzoCy8gyWHyzNkzRhTjSPVvl4dlktNHPDtuMYZYHXt2b5cbQDNtFsV6yAKrGWskU1kt fjXgrLGbD7Tit3HnQVf0 dS43XUZriM5wuMKkGHtixiEbLmX9NDwkLENmZbV6PSUmaJNbTQAcD2slUWTiDAfmIZLvAMmyiIXcHDW6 nYhsf3D4tIXupQFzrUzi DjJuWgEwLlDLq6EeHEl0yYvaQ3RgCWMsXcL1uAMcOVZcGSxdTSUgCHLvimB8gZ31MVregiH7iZDbl5Cl w76tm841zO1xnDExMTZ1 ROCyHSHvwOTyULKbHLM3FNGdgWQaR6evYnWupTZpH1NpYmDguZOtB3LjUpOdlNAvS7KxMaQiyQVbZMOr tKJ1WSbmn893CKV3DaXz FH1mY7Rgj1W9uP0tpNPyNSNzpKQeFfJkMYSpov0qfXOpVCujp9AfALH4xdO6rZUrzWAnJNBzWM02Mkbu w1YuYyngLSM1ATOgnxAi a4Iae4wjNfKdxnHaL8rpN2HmMCQqQQMjJHUsGiYrqbZtd8Ozq8OxqUDkxVq2o7oeQFMaCBLssWrnn7lq HSN0OXJtR4E5fCFei4ct CDwkEMMxzIZ4xsV8GUzgIHUqcwW1xbL1OHjqCYWyoHZ4odT4CNuuXFCvKjT8bzU6EGxwHCPeFRC8OoOn DIRzk3KploedWkScc2Jz nIEnSZjuE42dq806VDIbxeUhQ5tfpSYyhnoddAZofsjrAAzhhjI8PJXqZXEjNBhfCQHwTHIrJkPeyQSm ZzEwMzNcaGljaFxmMVxk YwKlJQRcWMloJ3bsIkEfObQjSJUOrTK9vKRob9tivtR4oYKrDU9pOLOunBOvxxBdb7Y3IIO0pMWshT1v aDLtADQhmUUpftXnht25 eUBulMZ3PAXuSHMdpQIiuZ7oFDDgVTOSqE7kyIRWgoNyizMyFFGhjCwufs5AkWQptw7wvMQzX7MiqDkc rEMbOTJpVNGeeYydpNSmMGIlTLHvyqjia7BkZNPorEVpK1EcEK7jJQNkbu64Xybmuronqj [facility] Work Phone: Pathology report Cancer NarrativeSurgical Pathology Case: [id number] Authorizing Provider: Dominick Barbosa MD Collected: 07/13/2024 1405 Ordering Location: [facility] Received: 07/13/2024 1405 Pathologist: Shakir Ford DDS Specimen: NASAL MASS RIGHT BIOPSY [facility] Work Phone: Pathology report final diagnosis Narrative a9tuuGPqNFEhjMZvVMktHtugzaQqCJIeaHVuO3TaybpaVMilKD4vCO1gkFnekVLwoKKyQFZeHhUxa1nm o170hTYxe5fjYVRQpkhy tFz6pCwzQ38ub5J6TcqhC7vdDFOjEQdhXSRkQWhzjBEvWXo7IMWloSBjxfGmReXgKYPfwXJhpPQ1NSFd ZC8mipzhHUnvSAopDAHu ctL4KJFetVGmR9VlRNZsHM0haljoQCX0UHsgWMGiCAJ6TlZtUNXnr2Dvjaf5EfYxxDm7w2rsBAZtLDYh wSuqi1ihJES9QCLdrDCd Z3ajdT8bYTFjYR1likqps3mjSDqsLAeiQULfqPB4qnU8KKMwoENqP0VgdG7pNICnNXNkuaIowGflsR0l ZnMyMlxjZjEgTmFzYWwg P1N9fWI6ONCvcBhdsRQcGWNpAHBsbI7na7s8RWEscmbahpZll4jsQKXzns9cGXCjtINwaMEdh1IeWH8n ZHHahl5ruTPivU3bxRDe mOW5gI2vBTbcwIvyOMJagNN0q5DwETO1jy8tCXekF47ge8xutUEyyHF4uBErLMQxyb4wUDAhbJWejtLy DY1cBFUypxnftU4rkJTiUHVvak5=Jhdwmvxavy [facility] Work Phone: Pathology report gross observation Narrative q8ndmTRmDVFmtSKFBWX2LEYnWU8xsQdvgKc5rZikSURfuiM3iXSdLOdfm6sbVVY0u9ewqzIHXunhWNKt HT8rTNnbZSZkPV3xMwNp PECnXxQgXLBwnGRfrnNfByUqJKHicGDmlIF1SUVbNV3mfiurEJnrNWkrNZAoedH1AUQdaQSpY3HoOVDv XZ4korthWVE4TFBQInbw Db1okTEgfKPVHndzLbRgMfOsKWGzNEVyXONnt2spwaETACfsYHMHGLz2VXt8RUSsGOMsyCWlu2V9XOcs u1rqi0PuRASnQNt2fO5T VobfHWA8RYJWIiokMsezxTibv1WeiQBkSFGzPHwsxRWtINBiUSVdJOgrPqTTJeYhTfMeSSD5PGp7ZwLa TLk8YYtoDxKPPTD7NRa4 RbbgDOx6JIbjKEruvYZdDGVtSSIoGIXqWGnwxaC3a8jxILXmmNQsNYX5HQhrs8zfEUyqSCG9DPQmJcCv YIVvCR0PAuKfZFA5ZdR0 ZotiKfZ6RPc9SOBHGlPgOiEiSDYuFmz2THtuLAz2FVx5LXfCSfRcDNB9AoHsAKZiOWD9NUT6RHvorqjw YLu4LXEiWAokdjMqIMlf YkwrNDsfM48yxZOeDOQMUnsreOOkpzijeInaTiYxhWVfUaDdRYhpuZIalPIgDP2REMu7neJkWTUuBJBv TlApTJkfJaCnSOw9OTPm lS5iEb1gjPYvhX1qZVdiFoDdNEYgk9q2nON1jGHsdFS2uSMmmEnqGF3aqJNjOC1zUCfuk9LhrXWbGX61 eQLaflSdvrSqTw9ya6Jt KS1zr4ZzYjhwoPV8PWNeE9s0XadtWTVfPL06fSGtvRtmDXDvtwGaA1PoSMNym4PiwEIohXPsd8EalBCt LXdoaXRlIHNvZnQgdGlz f8JoLWWvZ2KpD3N2oD1hWRLeENNxCTT8LYUuJtT2XKDvNCQkpB1zFRJiBHSakKGuhA6qukJpktHrkUAu vAO2FXFxiG0epV52ikCz yxJpwhXkU0Dmy7D4yMQzEPUutpAOHwolVKVaNMYboRVDy4LbGBVEFlUPWs2OCUQpgNZKIHS3IG2kLAhh LSPvQ3PhV2AzmhP4t2epvUoxw9DrtLJgMT2mvFNnUC9TGYWmqiFiGOnohIqloQ9cVHp3Uwpiwxmnvh [facility] Work Phone: Pathology report relevant history Narrative e9aghJXkMDOho9ohWYCyzUSbHjCmNrMfZyIlOue8ERTddeX1Oxt5ENYhVAmygW4wATWeJLxoD4dxjiQo xCFrXFNjTRv5bJ3owCjycJ9zTpJnLlQcDUNizLJnzrzoPT1naAtsuDOieBKicF70d1j4jCUqdDKdWF6= [facility] Work Phone: Resident Review w6exoEFgYGXvjWUuKNipLushuiHbELTnlMByK1ZmzdqoSEyrOE3vJI4qlYhcnJMdoLPrQBYdUqOdg6ln c532zIOqx2nnPKHCaxue xUg7uOgwF89vz6W0RwkeM94voMMdQQX5DCYrKQPupFRfYEVwSPD7VIMrrGVqA1diPMLlDU3wkaacFKnh XOtkTDDlwAS2LSQwmGHb P2WdFRSpUWchJYXwaoi3WjGaXd6wwYWfqRtcOAizXDFgCYSsFCygUGMuOmHyIYdoRDeyi9ChSMFsCW7f qcPlhXZpy1Yzr4KqEvBu sI9vgX1wzeZ7OHHdXWFgkcimk9PlAMyuYEAxdyp1pdG4hS8tQHzctSwknQE5dD3ud3v2QMYcu3oaQY52 SLNQPC0xjHLoD1BibC7lIHCIXX5juJCsBMCnwsDilXJunW==Mvfaoivjdo [facility] Work Phone: [facility] Work [facility]: Basophils Auto (Bld) [#/Vol]on 80-14-7536Xnvvbfsbk (Bld) [#/Vol]0.1 10 3/uL0.0-0.1FC[facility] HospitalBasophils/100 WBC Auto (Bld)on 06-41-7177Pqzrfnrki/100 WBC (Bld)1.2 %0.2-2.0[facility] SpringfieldCholesterol in LDL Calc [Mass/Vol]on 93-77-0535Mdcstxwabab in LDL [Mass/Vol]66.0 mg/dLKettering Health SpringfieldComment on above:<100 mg/dl BKUQAIC367-458 mg/dl NEAR OR ABOVE MGKQQDX508-067 mg/dl BORDERLINE EKLR291-889 mg/dl HIGH>190 mg/dl VERY HIGHCholesterol in VLDL Calc [Mass/Vol]on 18-96-1114Iljsfxvotqw in VLDL [Mass/Vol]43.0 mg/dLKettering Health SpringfieldEosinophils/100 WBC Auto (Bld)on 83-17-8972Iklugeawxfa/100 WBC (Bld)3.1 % 0.9-7.0[facility] SpringfieldErythrocyte distribution width Auto (RBC) [Ratio]on 67-38-1628Iukdnecebsv distribution width (RBC) [Ratio]13.0 % 11.0-15.0[facility] SpringfieldEstimated glomerular filtration rate (GFR) non- Americanon 90-29-7047CFQ/1.73 sq M.predicted among non-blacks MDRD (S/P/Bld) [Vol rate/Area]mL/min/{1.73_m2}>=60[facility] SpringfieldGlobulin Calc (S) [Mass/Vol]on 62-21-7076Kcojgytp (S) [Mass/Vol]4.1 g/dL [facility] SpringfieldGlucose mean value [Mass/volume] in Blood Estimated from glycated hemoglobinon 23-72-9956Pcxzshl glucose Estimated from glycated hemoglobin (Bld) [Mass/Vol]128 mg/dLKettering Health Springfield Hematocrit Auto (Bld) [Volume fraction]on 64-16-4796Pibziqzodn (Bld) [Volume fraction]45.3 %42.0-54.0[facility] SpringfieldHemoglobin [Mass/volume] in Bloodon 42-82-5149Ffpworbhuc (Bld) [Mass/Vol]14.6 g/dL14.0-18.0 [facility] SpringfieldLaboratory - Chemistry and Chemistry - challengeon 65-69-7739Xbflwbr [Mass/Vol]3.6 g/dL3.4-5.0[facility] [place]ALP [Catalytic activity/Vol]86 U/W42-003KwymbotutKettering Health SpringfieldALT [Catalytic activity/Vol]46 U/A83-39ZztdwcytuKettering Health Springfield AST [Catalytic activity/Vol]27 U/P03-15XbgkfbgvdKettering Health Springfield Bilirubin [Mass/Vol]0.5 mg/dL0.2-1.0[facility] SpringfieldCalcium [Mass/Vol]9.3 mg/dL8.5-10.1FC[facility] HospitalChloride [Moles/Vol] 100 mmol/G08-151QmudptxaiKettering Health SpringfieldCholesterol [Mass/Vol]147 mg/dL <=200[facility] SpringfieldCholesterol in HDL [Mass/Vol]38 mg/dLLow 40-60[facility] SpringfieldComment on above:> or =60 mg/dl - LOW CARDIOVASCULAR RISK<40 mg/dl - HIGH CARDIOVASCULAR RISKCO2 [Moles/Vol]28.7 mmol/L21.0-32.0[facility] SpringfieldCreatinine [Mass/Vol]0.93 mg/dL 0.70-1.30[facility] SpringfieldGFR/1.73 sq M.predicted MDRD (S/P/Bld) [Vol rate/Area]mL/min/{1.73_m2}>=60[facility] SpringfieldGlucose [Mass/Vol]121 mg/lMCdsh67-932KwhbatnjvKettering Health SpringfieldPotassium [Moles/Vol]4.2 mmol/L3.5-5.1FC[facility] HospitalProtein [Mass/Vol] 7.7 g/dL6.4-8.2FWadsworth-Rittman Hospitalodium [Moles/Vol]138 mmol/L 136-145[facility] SpringfieldTriglyceride [Mass/Vol]215 mg/dLHigh <=150[facility] SpringfieldTSH Qn3.486 m[IU]/L0.358-3.740[facility] SpringfieldUrea nitrogen [Mass/Vol]16.0 mg/dL7.0-18.0[facility] SpringfieldUrea nitrogen/Creatinine [Mass ratio]17.2 mg/mgKettering Health SpringfieldLaboratory - Hematology and Cell countson 21-05-7922ScN6e (Bld) [Mass fraction]6.1 %4.5-6.2FCleveland Clinic Ak[facility] Lodi HospitalComment on above:ADA RECOMMENDED LIMIT 4.0 - 6.0ADA THERAPEUTIC TARGET < 7.0ACTION SUGGESTED> 7.0Immature granulocytes/100 WBC (Bld)0.3 %0.0-0.5FCleveland [facility]odi HospitalLeukocytes [#/volume] corrected for nucleated erythrocytes in Blood by Automated counon 78-43-8850GRJ corrected for nucl RBC Auto (Bld) [#/Vol]7.2 10 3/uL4.0-11.0[facility] SpringfieldLymphocytes Auto (Bld) [#/Vol]on 23-79-9817Rpnatgrdlxy (Bld) [#/Vol]2.3 10 3/uL1.2-3.8[facility] SpringfieldLymphocytes/100 WBC Auto (Bld)on 06-08-2024 Lymphocytes/100 WBC (Bld)32.3 %20.5-60.0[facility] HospitalH Auto (RBC) [Entitic mass]on 20-89-3745QHQ (RBC) [Entitic mass]29.0 pg25.9-34.0 [facility] SpringfieldMCHC Auto (RBC) [Mass/Vol]on 93-20-6743CTKU (RBC) [Mass/Vol]32.2 g/dL29.9-35.2FC[facility] HospitalMCV Auto (RBC) [Entitic vol]on 59-42-3742UDB (RBC) [Entitic vol]89.9 fL80.0-94.0[facility] SpringfieldMonocytes Auto (Bld) [#/Vol]on 20-53-7216Sutzyuveo (Bld) [#/Vol]0.4 10 3/uL0.3-0.8[facility] SpringfieldMonocytes/100 WBC Auto (Bld)on 98-33-5659Yawiialbh/100 WBC (Bld)6.1 %1.7-12.0[facility] SpringfieldNeutrophils Auto (Bld) [#/Vol]on 45-26-7780Oyhjysvsnnx (Bld) [#/Vol]4.1 10 3/uL1.4-6.5FC[facility] HospitalNeutrophils/100 WBC Auto (Bld)on 74-59-5072Ibyncfemulp/100 WBC (Bld)57.0 %43.0-75.0[facility] SpringfieldNo Panel Informationon 85-88-6518Iyrpvmjojqv # (Auto)0.2 10 3/uL0.0-0.7FC[facility] HospitalImmature Granulocyte # (Auto)0.02 10 3/uL0.00-0.03[facility] SpringfieldPlatelet mean volume Auto (Bld) [Entitic vol]on 91-35-9307Wbuvvpej mean volume (Bld) [Entitic vol]10.0 fL 9.5-13.5FC[facility] HospitalPlatelets Auto (Bld) [#/Vol]on 20-72-2694Kkfzkplpp (Bld) [#/Vol]355 10 3/sT754-803QuefsoysyKettering Health SpringfieldRBC Auto (Bld) [#/Vol]on 83-08-5261FUZ (Bld) [#/Vol]5.04 10 6/uL4.70-6.10 [facility] Edwin Shawerum or plasma albumin/globulin mass ratioon 41-29-3234Dhqizuw/Globulin [Mass ratio]0.9 {ratio}[facility], [facility] Shawerum or plasma anion gap determinationon 68-77-4703Ribyi gap [Moles/Vol] 13.5 mmol/LFWadsworth-Rittman Hospitalerum or plasma total cholesterol/high density lipoprotein (HDL) cholesterol mass maria luz 06-08-2024 Cholesterol.total/Cholesterol in HDL [Mass ratio]3.9 {ratio}[facility] SpringfieldComment on above:3.3 - 4.4 LOW RISK4.4 - 7.1 AVERAGE RISK7.1 - 11.0 MODERATE RISK>11.0 HIGH RISKSURGICAL PATHOLOGY RESULTSon 06-04-2023 Pathology ReportName WALE GREY Pathologist: LUBA JEFFERS DMD. Date [...] reviewed this case. Diagnostic interpretation performed at [facility] [id number] [place] [address]. [place] [id number] Clinical History: Physician Contact Number: [phone] Fixative (A): Saline Fixative (B): Saline Clinical [...] specimen is entirely submitted in 7 cassettes. [facility] B: Received in formalin, labeled with the patient's name and hospital number and B, microdebrider contents , are multiple, irregular segments of blood and soft tissue aggregating to 5.4 x 3.7 x 1.5 cm. Product Introduction Manager sections are submitted in 8 cassettes [facility] Note: Per the pathologist, the rest of specimen B is submitted in toto in 17 additional cassettes. 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 Please feel free to contact my office by calling [phone] with any questions. Provider Impressions 1. 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 Please feel free to contact my office by calling [phone] with any questions. Provider Impressions 1. Inverted [...] day Tylenol TABS Vitals Vital Signs Recorded: 88Sxh6408 07:57AM Height6 ft Ldsmvl177 lb 8 oz BMI Sqndscnxws26.81 kg/m2 BSA Calculated2.89 Tobacco Useb) No Falls [...] (Please see procedure below.) SINONASAL ENDOSCOPY (CPT 88239): To better evaluate the patient's symptoms, sinonasal [...] Barbosa MD; May 27 2023 8:22AM EST (Author)NormalUH TouchworksTobacco Screening.on 34-18-3241Flvo risk assessmenta) No falls within the last bjsuAY-Gugklyecvpwkye-Drejkhe [facility] 1220 Work Phone: Tobacco use status CPHSb) WsDH-Yorobfdaovosup-GmetdkrLake Region Public [facility] 8113 Work Phone: Established Visit (Otolaryngology)on 05-20-2023 Established Visit (Otolaryngology)Diagnoses/Problems Chronic ethmoidal sinusitis (473.2) (J32.2) Chronic maxillary sinusitis (473.0) (J32.0) 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 Pleasefeel free to contact my office by calling [phone] with any questions. Provider Impressions 1. Inverted [...] him to reach out to my medical unit secretary and we discussed some time [...] TIMES DAILY NEEDED. Vitals Vital Signs Recorded: 14Huc5062 12:20PM Height6 ft Xydvdx088 lb 3.2 oz BMI Cwvybrizbp67.31 kg/m2 BSA Calculated2.91 Tobacco Useb) No PHQ-2 #1. Over the last 2 weeks have you felt down, depressed or hopeless? (If yes, answer PHQ-9 below)No PHQ-2 #2. Over the last 2 weeks have you felt little interest or pleasure in doing things? (If yes,answer PHQ-9 below)No Falls Screening (Age 18+)a) No [...] (Please see procedure below.) SINONASAL ENDOSCOPY (CPT 66697): To better evaluate the patient's symptoms, sinonasal [...] my direction and personally dictated by me. Ihave reviewed the chart and agree that the record accurately reflects my personal performance of the history, physical exam, assessment, plan, and diagnosis. I have also personally directed, reviewed, and agree with the discharge instructions. Dominick Barbosa MD. 'Scores and Scales' Signatures Electronically signed by : Dominick Barbosa MD; May 20 2023 1:59PM EST (Author)[facility] TouchworksTobacco Screening.on 43-81-0625Vemfc depression screening xjoyzlceljVsNL-Pcsssplvhaapxu-Jugrnix [facility] 3659 Work Phone: Fall risk assessmenta) No falls within the last year MR-Ntzpihkqzcqgeb-JavoninSt. [facility] 4100 Work Phone: Tobacco use status CPHSb) HeCZ-Egqdpvfzbnrypd-BzjwoimWayne Healthcare Main Campus 4100 Work Phone: No Panel Informationon 05-15-2023 [facility] 4100 Work Phone: Order Reconciliationon 99-46-3384Oozza Reconciliation Page 1 Discharge Reconciliation Document Reconciliation [...] 15-May-2023, Routine, Assistance Level: (more content not included)...[facility] CenterPatient Profile - Preop v3on 94-00-7378Wlmmbdj Profile - Preop g9Zbvdifk Profile - Preop: Initial Info: Patient DemographicsName: WALE GREY Date: 2000 Address: [address] [place] [address] [facility], [facility] Primary Phone [phone] How to be AddressedDylan Spoken Language PreferredEnglish Stated Reason for Admissioninverted papilloma Primary Contact Name and Numbereve Stern [phone] Limitations on Visitors/Phone Callsnone Medications Brought to Hospitalno General Health: Weight in kg185.1 kilogram(s) Weight in lpn303 pound(s) Height in feet5 feet Height in yvsoyx64.97 inch(es) Height in cm182.8 centimeter(s) BMI (kg/m2)55.392 square meter Patient or Family Member Reaction to Anesthesiano previous reaction Blood Avoidance/Restrictionsnone Previous Transfusion Reactionno Health Mgmt: Symptoms/Conditions Managed at Homerespiratory Respiratory Symptoms/Conditionssleep disordered breathing Barriers to Managing Healthnone Relationship/Environ: Lives Withparent(s) Living Arrangementshouse Living Environment Commentsmom Resource/Environmental Concernsnone Anticipated Transition [place] [facility] Anticipated at Transitionnone Tobacco Use: Tobacco [...] Information Last Updated: 15-May-2023 11:21 by Ginny Cohen)[facility] Surgical Pathology Departmenton 26-41-7370DRT Surgical Pathology DepartmentName WALE GREY Pathologist: LUBA JEFFERS DMD. Date [...] reviewed this case. Diagnostic interpretation performed at [address] [facility] [address] Clinical History: Physician Contact Number: [phone] Fixative (A): Saline Fixative (B): Saline Clinical [...] specimen is entirely submitted in 7 cassettes. [facility] B: Received in formalin, labeled with the patient's name and hospital number and B, microdebrider contents , are multiple, irregular segments of blood and soft tissue aggregating to 5.4 x 3.7 x 1.5 cm. Product Introduction Manager sections are submitted in 8 cassettes [facility] Note: Per the pathologist, the rest of specimen B is submitted in toto in 17 additional cassettes. [facility]/05/19/2023 [facility] Department of Pathology [address] [place], [place] [address]NoYampa Valley Medical CenterComment on above:Performed By: #### [facility] #### [facility] Surgical Pathology Department [address] [place] [address]LKZAF METABOLIC PANELon 36-23-3579Crbwm gap [Moles/Vol]16 mmol/YLmrjes82 - 20[facility] Hospital at MonmouthComment on above:Performed By: #### BMP #### [facility] [address] [place], [place] [address]Qungrib [Mass/Vol]9.8 mg/dLNormal8.6 - 10.6[facility] Hospital at MonmouthComment on above:Performed By: #### BMP #### [facility] [address] [place], [place] [address]Qliiergi [Moles/Vol]101 mmol/HPeqmll77 - 107Special[facility] Hospital at MonmouthComment on above:Performed By: #### BMP #### [facility] [address] [place], [place] [address]Edjfppldoj [Mass/Vol]0.81 mg/dLNormal0.50 - 1.30[facility] Hospital at MonmouthComment on above:Performed By: #### BMP #### [facility] [address] [place], [place] [address]iLBO MALE>90Normal>90Special[facility] Hospital at MonmouthComment on above:Result Comment: CALCULATIONS OF ESTIMATED GFR ARE PERFORMED USING THE 2020 CKD-EPI STUDY REFIT EQUATION WITHOUT THE RACE VARIABLE FOR THE IDMS-TRACEABLE CREATININE METHODS. https://jasn.asnjournals.org/content/early//ASN.0902874211Eolrkcwry By: #### BMP #### [facility] [address] [place], [place] [address]Penovop [Mass/Vol]81 mg/bEEczakm21 - 99[facility] Hospital at MonmouthComment on above:Performed By: #### BMP #### [facility] [address] [place], [place] [address]SQU2 (Bld) [Moles/Vol]27 mmol/OWuxbwn76 - 32[facility] Hospital at MonmouthComment on above:Performed By: #### BMP #### [facility] [address] [place], [place] [address]Rlbcozjpl [Moles/Vol]4.5 mmol/LNormal3.5 - 5.3[facility] Hospital at MonmouthComment on above:Performed By: #### BMP #### [facility] [address] [place], [place] [address]Donitj [Moles/Vol]139 mmol/LZlkhlv129 - 145Special[facility] Hospital at MonmouthComment on above:Performed By: #### BMP #### [facility] [address] [place], [place] [address]Gckt nitrogen [Mass/Vol]13 mg/dLNormal6 - 23Special[facility] Hospital at MonmouthComment on above:Performed By: #### BMP #### [facility] [address] [place], [place] [address]AYYke 35-43-3983Obmgyqxkqej distribution width (RBC) [Ratio] 13.0 %Rrgpwl28.5 - 14.5[facility] Hospital at MonmouthComment on above:Performed By: #### CBC #### [facility] [address] [place], [place] [address]Bqewevzzis (Bld) [Volume fraction]47.2 %Jbpoaj55.0 - 52.0[facility] Hospital at MonmouthComment on above:Performed By: #### CBC #### [facility] [address] [place], [place] [address]Vzrwvgvsdy (Bld) [Mass/Vol]14.4 g/hUDgfnpm35.5 - 17.5[facility] Hospital at MonmouthComment on above:Performed By: #### CBC #### [facility] [address] [place], [place] [address]SDUT (RBC) [Mass/Vol]30.5 g/dLLow32.0 - 36.0[facility] Hospital at MonmouthComment on above:Performed By: #### CBC #### [facility] [address] [place], [place] [address]TDN (RBC) [Entitic vol]94 uCXlallf75 - 100[facility] Hospital at MonmouthComment on above:Performed By: #### CBC #### [facility] [address] [place], [place] [address]VNEKQFLCQ RBC0.0 /100 WBCNormal0.0-0.0[facility] Hospital at MonmouthComment on above:Performed By: #### CBC #### [facility] [address] [place], [place] [address]Mggpicbvo (Bld) [#/Vol]400 10*3/iSMfmuey815 - 450[facility] at MonmouthComment on above:Performed By: #### CBC #### [facility] [address] [place], [place] [address]GFC1.03 x10E12/LNormal4.50 - 5.90[facility] Comment on above:Performed By: #### CBC #### [facility] [address] [place], [place] [address]YBX (Bld) [#/Vol]9.2 10*3/uLNormal4.4 - 11.3[facility] Hospital at MonmouthComment on above:Performed By: #### CBC #### [facility] [address] [place], [place] [address]Xftagxrary - Chemistry and Chemistry - challengeon 05-12-2023 Anion gap [Moles/Vol]16 mmol/L10 - 96KZ-Dqvmxckromjzzj-HaczyrcCleveland Clinic [facility] 4100 Work Phone: [phone] [Mass/Vol]9.8 mg/dL8.6 - 10.6 WJ-Lytiuhydekeeua-HlhweotCleveland Clinic Marymount Hospital 4100 Work Phone: [phone] [Moles/Vol]101 mmol/L98 - 107 PG-Ntnhpjaksropmi-ZhrlprlHarrison Community Hospital 4100 Work Phone: [phone] [Moles/Vol]27 mmol/L21 - 32 IT-Ldirrcqkjmypmz-IvbjuojCleveland Clinic [facility] Hospital 4100 Work Phone: [phone] [Mass/Vol]0.81 mg/dLSee Below [facility] 4100 Work Phone: [phone] on above:Reference Range: 0.50 - 1.30Glucose [Mass/Vol]81 mg/dL74 - 27YV-Kxsmwcycllfhhx-MbnwuvvCleveland Clinic Marymount Hospital 4100 Work Phone: [phone] [Moles/Vol]4.5 mmol/L3.5 - 5.3 [place] [address] Work Phone: [phone] [Moles/Vol]139 mmol/L136 - 145 [place] [address] Work Phone: [phone] nitrogen [Mass/Vol]13 mg/dL6 - 23 [place] [address] Work Phone: [phone] - Hematology and Cell countson 05-12-2023 Erythrocyte distribution width (RBC) [Ratio]13.0 %See Below [place] [address] Work Phone: [phone] on above:Reference Range: 11.5 - 14.5 Hematocrit (Bld) [Volume fraction]47.2 %See PinrsAB-Uovlyocqxrooep-FuobdaaJoanne [place]ille [address] Work Phone: [phone] on above:Reference Range: 41.0 - 52.0 Hemoglobin (Bld) [Mass/Vol]14.4 g/dLSee PcqgdDW-Jeiurvslfqtwxu-HodkwwrJoanne Ville [address] Work Phone: [phone] on above:Reference Range: 13.5 - 17.5MCHC (RBC) [Mass/Vol]30.5 g/dLbelow low thresholdSee LcjknJY-Efoczsloydkceq-RoetizlJoanne [place]ille [address] Work Phone: [phone] on above:Reference Range: 32.0 - 36.0MCV (RBC) [Entitic vol]94 fL80 - 064VJ-Bgcsjcwzizxhlj-NukznegJoanne Ville [address] Work Phone: [phone] (Bld) [#/Vol]400 10*3/uL150 - 450 [place] [address] Work Phone: [phone] (Bld) [#/Vol]5.03 {x10E12/L}See Below FD-Nmqykkjrrbdrnl-XrcwfimLake Region Public Health [facility] 4100 Work Phone: Comment on above:Reference Range: 4.50 - 5.90WBC (Bld) [#/Vol]9.2 10*3/uL4.4 - 11.5VB-Zybsnoodquyylg-HotwrmhCleveland Clinic Marymount Hospital 4100 Work Phone: No Panel Informationon 05-12-2023>90>90 BD-Rgidjsfbeokhdq-XbzfvmbLake Region Public Health Unit 4100 Work Phone: Comment on above:CALCULATIONS OF ESTIMATED GFR ARE PERFORMED USING THE 2020 CKD-EPI STUDY REFIT EQUATION WITHOUT THERACE VARIABLE FOR THE IDMS-TRACEABLE CREATININE METHODS.https://jasn.asnjournals.org/content/early/ASN.09857324865.0 {/100_WBC}0.0-0.4BO-Drfooaoveytrmi-YmuazroCleveland Clinic Marymount Hospital 4100 Work Phone: Established Visit (Otolaryngology)on 03-18-2023 Established Visit (Otolaryngology)Diagnoses/Problems 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 Provider Impressions 1. Inverted [...] DAILY UNTIL FINISHED. Vitals Vital Signs Recorded: 06Uoo2546 01:56PM Height6 ft Csewyu747 lb 9 oz BMI Budfblhfzg34.63 kg/m2 BSA Calculated2.91 Tobacco Useb) No PHQ-2 #1. Over the last 2 weeks have you felt down, depressed or hopeless? (If yes, answer PHQ-9 below)No PHQ-2 #2. Over the last 2 weeks have you felt little interest or pleasure in doing things? (If yes,answer PHQ-9 below)No Falls Screening (Age 18+)a) No [...] my direction and personally dictated by me. Ihave reviewed the chart and agree that the record accurately reflects my personal performance of the history, physical exam, assessment, plan, and diagnosis. I have also personally directed, reviewed, and agree with the discharge instructions. Dominick Barbosa MD. 'Scores and Scales' Signatures Electronically signed by : Dominick Barbosa MD; Mar 29 2023 3:44PM EST (Author)[facility] TouchworksTobacco Screening.on 16-04-1397Hmllj depression screening nobcsxyjxzWeNT-Mkwzxbmkxpzqbk-Lnbpedqt Work Phone: Fall risk assessmenta) No falls within the last year MP-Kdeqcspvuhqxdz-Xrqhmzuf Work Phone: Tobacco use status CPHSb) VdVA-Bnkiirbuhiddjn-Yanxpeeb Work Phone: Established Visit (Otolaryngology)on 01-06-2023 Established Visit (Otolaryngology)Diagnoses/Problems Chronic ethmoidal sinusitis (473.2) (J32.2) Chronic maxillary sinusitis (473.0) (J32.0) Nasal congestion (478.19) (R09.81) 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 Provider Impressions 1. Inverted [...] standard middle meatal antrostomy but there are instanceswhere an endoscopic medial maxillectomy is required to be able to access the anterior aspect of thetumor. If a endoscopic medial maxillectomy were performed the major consideration in terms of morbidity would the epiphora. Additional risks of endoscopic medial maxillectomy would include damage to sensory nerves running around the maxillary sinus notably V2 and resultant cheek numbness or numbness to portions of her hard palate or upper teeth. 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 Please feel free to contact my office by calling [phone] with any questions. Provider Impressions 1. Inverted [...] No Reported Medications Vitals Vital Signs Recorded: 68Ywj8763 04:13PM Height6 ft Rwpgct797 lb 8 oz BMI Cmrjfoaftf12.89 kg/m2 BSA Calculated2.92 Tobacco Useb) No PHQ-2 #1. Over the last 2 weeks have you felt down, depressed or hopeless? (If yes, answer PHQ-9 below)No PHQ-2 #2. Over the last 2 weeks have you felt little interest or pleasure in doing things? (If yes,answer PHQ-9 below)No Falls Screening (Age 18+)a) No [...] (Please see procedure below.) SINONASAL ENDOSCOPY (CPT 65227): To better evaluate the patient's symptoms, sinonasal endoscopy is indicated. After discussion of risks and benefits, and topical decongestion and anesthesia,an endoscope was used to perform (more content not included)...NormalUH TouchworksTobacco Screening.on 29-99-9966Firid depression screening mfgxdqgbwkApKD-Swcxrebfcqzmji-Thkxisfd Work Phone: Fall risk assessmenta) No falls within the last year VE-Oiztxkwlduawsz-Renfayzg Work Phone: Tobacco use status CPHSb) MbYD-Llwxjychuzeufa-Qbdixhvl Work Phone: MRI LSPINE WO CONon 97-46-7745EWG LSPINE WO CON EXAMINATION: MRI LSPINE WO CON HISTORY: Lumbar radiculopathy ; lumbar [...] Electronically authenticated by: ANTONIO WEINSTEIN Date: 2022-07-23 12:04[facility] CampusXR LSPINE 2_3 VIEWSon 46-75-5176MZ LSPINE 2_3 VIEWSEXAMINATION: XR LSPINE 2_3 VIEWS HISTORY: Lumbago co-occurrent with right-side [...] Electronically authenticated by: ANTONIO WEINSTEIN Date: 2022-02-18 15:30[facility] CampusPathology Reporton 02-15-8779Tcixdwazy Report [id number]:127[facility] Medical CenterCoding Summary.on 37-85-9837Qpwjld Summary.CODING DATE: 08/31/2019 FINAL [facility] STATUS: Home (Routine DC) PAYOR: [employer] [facility] [employer] DESCRIPTION 5155 Level 5 Airway Endoscopy ADMIT DX: REASON FOR VISIT DX: J32.4 Chronic pansinusitis FINAL DX: PRINCIPAL: J32.4 Chronic pansinusitis SECONDARY: J34.89 Other specified disorders of nose and nasal sinuses J45.909 Unspecified asthma, uncomplicated G47.30 Sleep apnea, unspecified Z99.89 Dependence on other enabling machines and devices PYMT PROC APC STAT DESCRIPTION DOCTOR NAME DATE 40445 5155 J1 Nasal/sinus endoscopy, Yolette Govea MD 08/25/2019 surgical with ethmoidectomy; total (anterior and posterior), including sphenoidotomy, with removal of tissue from the sphenoid sinus RT Right side (used to identify procedures performed on the right side of the body) 13059 5155 J1 Nasal/sinus endoscopy, Yolette Govea MD 08/25/2019 surgical, with maxillary antrostomy; with removal of tissue from maxillary sinus RT Right side (used to identify procedures performed on the right side of the body) 48486 [id number] J1 Nasal/sinus endoscopy, Yolette Govea MD 08/25/2019 surgical, with frontal sinus exploration, including removal of tissue from frontal sinus, when performed RT Right side (used to identify procedures performed on the right side of the body) 08570 Anesthesia for Loyd López Jr., DO 08/25/2019 procedures on nose and accessory sinuses; not otherwise specified NOTE: The code number assigned matches the documented diagnosis and / or procedure in the patient's chart. However, the narrative phrase printed from the coding software may appear abbreviated, or result in slightly different terminology. Revised Coded By: Ngoc Campo Revised Date Saved: 08/31/2019 10:48 [facility]NSelect [facility] Intraoperative Recordon [id number] OR Intraoperative RecordIntraOp Document Type FT Summary Primary Physician: Yolette Govea MD Finalized Date/Time: 08/29/19 09:29:47 Pt. Name: WALE GREY D.O.B./Sex: 2000 Male Med Rec #: [id number] Physician: Jeferson HUBBARD, Yolette Ureña Financial #: [id number] Pt. Type: A Room/Bed: [place] [address] Admit/Disch: 08/25/19 09:16:00 - 08/25/19 15:30:00 Institution: [...] Entry 3 Case Attendee Rene Nava DO, Lyod Govea MD, Yolette Kimball RN, Jomar Miller Role Performed Anesthesiologist of Surgeon - Primary Plant Taxonomist - Primary Record Time In 08/25/19 10:37:00 08/25/19 10:37:00 08/25/19 10:37:00 Time Out 08/25/19 13:03:00 08/25/19 13:03:00 08/25/19 13:03:00 Procedure ANTROSTOMY TURBINECTOMY ANTROSTOMY TURBINECTOMY ANTROSTOMY TURBINECTOMY ETHMOIDECTOMY IM(Right) ETHMOIDECTOMY IM(Right) ETHMOIDECTOMY IM(Right) Comments out of room from [id number]. Last Modified By: Patrick RN, Nelly Nguyen RN, Nelly Nguyen RN, Nelly Pearce 08/25/19 13:05:43 08/25/19 13:05:43 08/25/19 13:05:43 Entry 4 Entry 5 Entry 6 Case Attendee Patrick INFANTE, Nelly Aguilar OBSTETRICS AND GYNECOLOGY PROFESSOR, Enzo Tijerina OBSTETRICS AND GYNECOLOGY PROFESSOR, Sheba Segovia Role Performed Plant Taxonomist - Primary Scrub - Primary Scrub - Relief Time In 08/25/19 10:37:00 08/25/19 10:37:00 08/25/19 11:40:00 Time Out 08/25/19 13:03:00 08/25/19 13:03:00 08/25/19 12:14:00 Procedure ANTROSTOMY TURBINECTOMY ANTROSTOMY TURBINECTOMY ANTROSTOMY TURBINECTOMY ETHMOIDECTOMY IM(Right) ETHMOIDECTOMY IM(Right) ETHMOIDECTOMY IM(Right) Comments out for lunch at out for lunch at [phone] Last Modified By: Nelly Nguyen RN, RN, [...] and tissue Entry 1 Skin Integrity Intact, Kevin, Warm, and Skin Abnormality No Dry Outcomes [...] to positioning General Comments: safety strap x2. K.Patrick,RN Patient Care Devices FT Pre-Care Text: Implements [...] due to electrical sources, and evaluates for signsand symptoms of electrical injury Entry 1 ESU [...] Time 08/25/19 11:42:00 By Rehana INFANTE, Jomar Miller, Breezy OBSTETRICS AND GYNECOLOGY PROFESSOR, Jeff Marcano CST, Jeff Giraldo CST, Enzo [...] L Patient Status Stable Skin. Condition Intact, Kevin, Warm, and Dry Airway Maintenance Oxygen in Use? Yes Airway Device Simple Mask Flow Rate 10 L/min Outcomes Met? Yes Last Modified By: Jomar Kimball RN 08/25/19 11:48:09 Post-Care Text: The patient is free from signs and symptoms of injury related to transfer/transport General Comments: handoff report given to pacu nurse. 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 Yes Verified Last Modified By: Nelly Nguyen RN 08/25/19 10:03:51 Post-Care Text: The patient received appropriate medication(s) safely administered during the perioperative period For Shine please see scanned medication reconcilliation form for [...] AIR Quantity 1 Aid PLUS LOWER BODY [[id number]][F] Fluid/[place] Unit Mistral warming system Setting high/43 degrees Body Site Lower anterior torso Last Modified By: Nelly Nguyen RN 08/25/19 10:05:52 Case Comments Finalized By: Melisa Rg CST Document Signatures Signed By: Nelly Nguyen RN 08/25/19 13:06 Donny INFANTE, Jomar ESPINOZA 08/26/19 11:19 Melisa Rg CST 08/29/19 09:29[facility] CenterOperative Reporton [id number] ReportDate of Surgery: 08/25/2019 SURGEON: Yolette Govea Jr., [...] Yolette Govea Jr., M.D. aek Dictated: 08/25/2019 #[id number] Typed: 08/26/2019 #[id number] cc: Wiliam Carrillo Jr., M.D.[facility] CenterComment on above: Result Comment: Electronically Signed By: Yolette Govea MD\.br\Date and Time Signed: 08/26/19 09:56 ESTInpatient Patient Summaryon [id number] [facility] SummaryU[facility] Clinical Discharge Instructions PERSON INFORMATION Name: ANTWAN GREYLAN Paul PHYSICIANS Admitting Physician: Yolette Govea MD Attending Physician: Yolette Govea MD PCP: ENZO VASQUES DO Discharge Diagnosis: Chronic pansinusitis Comment: PATIENT EDUCATION INFORMATION Instructions: Post Op Patient Instructions - FT (CUSTOM) Medication Leaflets: Follow up: With: Address: When: Yolette Govea [address] [place] [address] [employer] ([employer] In 6 days 08/31/2019 Comments: Call for followup appointment MEDICATION LIST Comment:[facility] CenterMain OR PACU I Recordon [id number] OR PACU I RecordPACU Phase I Document Type FT Summary Primary Physician: Yolette Govea MD Finalized Date/Time: 08/25/19 13:39:03 Pt. Name: WALE GREY D.O.B./Sex: 2000 Male Med Rec #: [id number] Physician: Yolette Govea MD Financial #: [id number] Pt. Type: A Room/Bed: [place] [address] Admit/Disch: 08/25/19 09:16:27 - Institution: Case Times [...] individualized perioperative plan of care The patient's rightto privacy is maintained The patient's value system, [...] with or improved from baseline levels established preoperativelyThe patient's cardiovascular status is consistent with or improved from baseline levels established preoperatively The patient's cardiovascular status is consistent with or improved from baseline levels established preoperatively The patient demonstrates and/or reports adequate pain control throughout the perioperative period The patient received appropriate medication(s), safely administered during the perioperativeperiod Acuity Level PACU I FT Entry 1 Start Time 08/25/19 13:03:00 Stop Time 08/25/19 13:35:00 Acuity Level Acuity Level I Last Modified By: Jesenia Phan RN 08/25/19 13:38:57 Finalized By: Jesenia Phan RN Document Signatures Signed By: Jesenia Phan RN 08/25/19 13:39[facility] CenterMain OR PACU II Recordon [id number] OR PACU II RecordPACU Phase II Document Type FT Summary Primary Physician: Yolette Govea MD Finalized Date/Time: 08/25/19 15:29:24 Pt. Name: WALE GREY /Sex: 2000 Male Med Rec #: [id number] Physician: Yolette Govea MD Financial #: [id number] Pt. Type: A Room/Bed: [facility] Admit/Disch: 08/25/19 09:16:27 - Institution: Case [...] and monitors body temperature Evaluates postoperative respiratory statusEvaluates postoperative cardiac status Evaluates postoperative neurological status Assesses pain control, collaborated in initiating patient-controlled analgesia and implements alternative methods of pain control Verifiesallergies, administers prescribed medications and solutions, evaluates response to medications Entry 1 In PACU II 08/25/19 13:40:00 Discharge from PACU 08/25/19 15:30:00 II Outcomes Met? Yes Last Modified By: Heavenly Hager RN 08/25/19 15:29:22 Post-Care Text: The patient demonstrates knowledge of the expected response to the operative or invasive procedure The patient's care is consistent with the individualized perioperative plan of care The patient's rightto privacy is maintained The patient's value system, [...] with or improved from baseline levels established preoperativelyThe patient's cardiovascular status is consistent with or improved from baseline levels established preoperatively The patient's neurological status is consistent with or improved from baseline levels established preoperatively The patient demonstrates and/or reports adequate pain control throughout the perioperative period The patient received appropriate medication(s), safely administered during the perioperativeperiod Finalized By: Heavenly Hager RN Document Signatures Signed By: Heavenly Hager RN 08/25/19 15:29[facility] HospitalMain OR Preoperative Recordon [id number] OR Preoperative RecordPreOp Document Type FT Summary Primary Physician: Yolette Govea MD Finalized Date/Time: 08/25/19 11:07:39 Pt. Name: ANTWAN GREYLUKASZ Mandel.O.B./Sex: 2000 Male Med Rec #: [id number] Physician: Yolette Govea MD Financial #: [id number] Pt. Type: A Room/Bed: [place] [address] Admit/Disch: 08/25/19 09:16:27 - Institution: Case Times [...] Signatures Signed By: Nelly Nguyen RN 08/25/19 11:07[facility] CenterOperative Reporton [id number] ReportPatient: WALE GREY Paul Age: 18 years Sex: Male : 2000 Associated Diagnoses: None Author: Yolette Govea MD Postoperative Information Procedure: RT IG microdebrider assisted MMA with r/o tissue, total ethmoidectomy, frontal sinusotomy, sphenoidotomy with r/o tissue Preoperative Diagnosis: Chronic pansinusitis (GDP80-FD J32.4, Working, Medical). Postoperative Diagnosis: Chronic pansinusitis (HRX29-VH J32.4, Discharge, Medical). Performed by: Yolette Govea MD. 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 Specimens Removed: nasal polyp, RT sinus contents, RT sinus sock, RT max sinus tissue, RT sphenoid tissue. Estimated Blood Loss: 100 ml. Medications Complications: None.[facility] CenterComment on above:Result Comment: Electronically Signed By: Jeferson HUBBARD, Yolette Justin.pastor\Date and Time Signed: 08/25/19 13:21 ESTPatient Education - Texton 03-62-6117Mpaczmx Education - Text [facility] CenterCoding Summary.on 82-32-4775Rgyurd Summary.CODING DATE: 08/22/2019 FINAL [facility] STATUS: Home (Routine DC) PAYOR: Medical [facility] APC DESCRIPTION 5521 Level 1 Imaging without [...] Erica North CphT Date Saved: 08/22/2019 11:03 amNormalMetrohealth Cleveland Heights Medical CenterAuto Diffon 93-18-0833Ndvoqezvz/100 WBC (Bld)1.4 %Normal0.0-2.0[facility] Comment on above:Order Comment: Order Added by Discern Expert.Performed By: #### [id number], [id number], [id number] #### [facility] [address], [place] [address]Kqpfhidhc/Leukocytes Auto (Bld) [Pure # fraction]0.2 E9/LNormal 0.0-0.2FProMedica Bay Park HospitalComment on above:Order Comment: Order Added by Discern Expert.Performed By: #### [id number], [id number], [id number] #### [facility] [address], [place] [address]Yjzzmstkudd/100 WBC (Bld)1.1 %Normal0.0-8.0[facility] Medical CenterComment on above:Order Comment: Order Added by Discern Expert.Performed By: #### [id number], [id number], [id number] #### [facility] [address] [place] [address]Mhzojgxiuys/Leukocytes Auto (Bld) [Pure # fraction]0.1 E9/L Normal0.0-0.5FProMedica Bay Park HospitalComment on above:Order Comment: Order Added by Discern Expert.Performed By: #### [id number], [id number], [id number] #### [facility] [address] [place] [address]Oqbbjzigmlz/100 WBC (Bld)21.2 %Cmworv11.0-50.0[facility] Medical CenterComment on above:Order Comment: Order Added by Discern Expert. Performed By: #### 1608002, 1768395, [id number] #### [facility] [address] [place] [address]Pnldckvxzij/Leukocytes Auto (Bld) [Pure # fraction]2.3 E9/L Normal1.0-4.0[facility] Medical CenterComment on above:Order Comment: Order Added by Discern Expert.Performed By: #### 5369574, 9288174, [id number] #### [facility] [address] [place] [address]Pjgplghdv/100 WBC (Bld)5.4 %Normal4.0-14.0[facility] Medical CenterComment on above:Order Comment: Order Added by Discern Expert.Performed By: #### [id number], 5720358, [id number] #### [facility] [address] [place] [address]Pejiakpdw/Leukocytes Auto (Bld) [Pure # fraction]0.6 E9/LNormal 0.2-1.0[facility] Medical CenterComment on above:Order Comment: Order Added by Discern Expert.Performed By: #### 2982641, 8470324, [id number] #### [facility] [address] [place] [address]Walnzlasapk/100 WBC (Bld)70.9 %Tsgzwm25.0-75.0[facility] Medical CenterComment on above:Order Comment: Order Added by Discern Expert. Performed By: #### 1363756, 1616114, [id number] #### [facility] [address], [place] [address]Qvpuzeddwnc/Leukocytes Auto (Bld) [Pure # fraction]7.6 E9/LHigh 2.0-7.5FProMedica Bay Park HospitalComment on above:Order Comment: Order Added by Discern Expert.Performed By: #### 6973143, 2514244, 01773971 #### [facility] [address], [place] [address]SHToq 30-99-9740Txau nitrogen [Mass/Vol]12 mg/dLNormal5-21 [facility] CenterComment on above:Performed By: #### 4952613, 3925281, 30579393, 7846488, 1166254 #### [facility] [address] [place] [address]JOR w/ Auto Diffon 51-07-2263Gfmhjejmamr distribution width (RBC) [Ratio]14.1 %Wmjwql03.9-14.2FProMedica Bay Park HospitalComment on above: Performed By: #### 1421257, 6519968, 77908773 #### [facility] [address] [place] [address]Pkzzhwmmoc (Bld) [Volume fraction]48.4 %Vlcyvf15.7-49.0[facility] Medical CenterComment on above:Performed By: #### 6735712, 8824251, 91329086 #### [facility] [address] [place] [address]Ehrgvxhnoj (Bld) [Mass/Vol]16.2 g/wBRliyii61.5-17.5FProMedica Bay Park HospitalComment on above:Performed By: #### 6124669, 2841676, 53992535 #### [facility] [address] [place] [address] [place] [address]HDH (RBC) [Entitic mass]29.0 siPblduq95.0-34.0[facility] Medical CenterComment on above:Performed By: #### 9547739, 5786437, 67306220 #### [facility] [address] [place] [address]WPCD (RBC) [Mass/Vol]33.6 g/fLShbosz40.4-36.0[facility] Medical CenterComment on above:Performed By: #### 9704887, 9558711, 76587669 #### [facility] [address] [place] [address]SPF (RBC) [Entitic vol]86.5 qVHophyr98.0-100.0[facility] Medical CenterComment on above:Performed By: #### 9137520, 5363418, 01452670 #### [facility] [address] [place] [address]Qttnadlv mean volume (Bld) [Entitic vol]8.7 fLNormal6.4-10.8 [facility] Medical CenterComment on above:Performed By: #### 9450546, 6660580, 65032421 #### [facility] [address] [place] [address]Cdufussoa (Bld) [#/Vol]351.0 E9/ALvjfao482.0-500.0[facility] Medical CenterComment on above:Performed By: #### 8000344, 2301932, 13200276 #### [facility] [address] [place] [address] 88[address]KDE (Bld) [#/Vol]5.6 E12/LNormal4.3-5.9[facility] Medical CenterComment on above:Performed By: #### 0192894, 5793672, 09138616 #### [facility] [address] [place] [address]HLQ corrected for nucl RBC Auto (Bld) [#/Vol]10.7 E9/LNormal 4.0-11.0[facility] Medical CenterComment on above:Performed By: #### 5744073, 6744705, 11056819 #### [facility] [address], [place] [address]Zotghmkxjjbw 49-33-9339Czyglkkjdx [Mass/Vol]0.8 mg/dLNormal 0.5-1.3FProMedica Bay Park HospitalComment on above:Performed By: #### 1484625, 8251473, 82258082, 7252101, 5506764 #### [facility] [address], [place] [address]Tcsrjwbxe 67-57-4623Hwjlskh [Mass/Vol]97 mg/sMJwnnjj75-498 [facility] CenterComment on above:Performed By: #### 6866114, 0560303, 84957212, 3800405, 8226007 #### [facility] [address], [place] [address]Unqjvoy 49-32-2061Xioqo gap [Moles/Vol]14 mmol/LNormal6-16 [facility] Medical CenterComment on above:Performed By: #### 1810665, 4025136, 34273163, 6398256, 5637333 ####[facility] [address] [place], [place] [address]Glheizpa [Moles/Vol]104 mmol/WSjfwpy134-169YpluhmMetrohealth Cleveland Heights Medical CenterComment on above:Performed By: #### 7250638, 1933763, 34662921, 0125662, 1156489 ####[facility] [address] [place], [place] [address]AM[address] [Moles/Vol]25 mmol/LAypgkd95-54OutfjuMetrohealth Cleveland Heights Medical CenterComment on above:Performed By: #### 6481133, 8101257, 33372641, 1073493, 1296142 ####[facility] [address] [place], [place] [address]Kgmlzbvtq [Moles/Vol]3.5 mmol/LNormal3.5-5.3FProMedica Bay Park HospitalComment on above:Performed By: #### 6295677, 5137301, 43155452, 5795474, 9378480 ####[facility] [address] [place], [place] [address]Mscuxn [Moles/Vol]139 mmol/XRwlzgw642-183VvgoqpMetrohealth Cleveland Heights Medical CenterComment on above:Performed By: #### 8348479, 5922822, 75962249, 8001254, 6050528 ####[facility] [address] [place], [place] [address]KO & PTTon 62-05-2979mXOY Coag (PPP) [Time]35.7 second(s) Vgagjl29.1-36.5FProMedica Bay Park HospitalComment on above:Result Comment: Heparin therapeutic range (represented by Anti-Factor Xa activity of 0.2 - 0.4 U/mL) corresponds to PTT of 56.6 - 109.0 sec.Performed By: #### 5191864, 6198936, 12337574 #### [facility] [address], [place] [address]ROE Coag (PPP) [Relative time]1.0 {INR}[facility] Medical CenterComment on above:Result Comment: INR results are specifically intended to assess patients stabilized on long-term Anticoagulation therapy suggested INR?s ?Less Intensive Anticoagulation? 2.0 ? 3.0 Conventional Range 3.0 ? 4.5Performed By: #### 5525815, 0588946, 42378793 #### [facility] [address], [place] [address]CE Coag (PPP) [Time]11.6 second(s)Otxffp79.2-12.9[facility] Medical CenterComment on above:Performed By: #### 4772903, 6550102, 18516832 #### [facility] [address], [place] [address]DS Chest 2 Viewson 65-73-7817LG Chest 2 ViewsExam Date/Time: 08/19/2019 16:39 EST Reason for Exam: [...] Germain Bryan M.D. Transcribed by: JAZMYNE Technologist: LuanaMetrohealth Cleveland Heights Medical CentereGFRon 87-43-8853MQX/1.73 sq M predicted among blacks MDRD (S/P/Bld) [Vol rate/Area] mL/min/{1.73_m2}Normal>=59[facility] Medical CenterComment on above:Order Comment: Order added by Discern Expert.Result Comment: eGFR is race adjusted. AA=.Performed By: #### 1584844, 3974558, 11742940, 7634970, 5352092 #### [facility] [address], [place] [address]FWB/1.73 sq M predicted among non-blacks MDRD (S/P/Bld) [Vol rate/Area]mL/min/{1.73_m2}Normal>=59[facility] Medical CenterComment on above: Order Comment: Order added by Discern Expert.Result Comment: Chronic kidney disease could be indicated at eGFR's of less than 60 mL/min/1.73m2. Kidney failure is indicated at less than 15 mL/min/1.73m2.Performed By: #### 4358767, 9335339, 44783196, 7296160, 4457612 #### [facility] [address], [place] [address]Hqlefm Summary.on 66-69-6633Ggdnpf Summary.CODING DATE: 08/08/2019 FINAL [facility] STATUS: Home (Routine DC) PAYOR: Medical [facility] APC DESCRIPTION 5522 Level 2 Imaging without [...] Erica North CphT Date Saved: 08/08/2019 12:24 [facility]/o Contraston 24-85-6355MM Maxillofacial w/o ContrastExam Date/Time: 08/05/2019 13:49 EDT Reason for Exam: [...] Germain Bryan M.D. Transcribed by: JAZMYNE Technologist: [facility] Vital Signs Date TimeVital SignValuePerforming YsgomgyioWfobzwkq09-20-1972 15:16-0400Body .9 cmDominick Barbosa MD Work Phone: [facility]10-08-2025 15:16-0400 Body mass index (BMI) [Ratio]55.86 kg/s4YjduvimDominick Barbosa MD Work Phone: [facility]10-08-2025 15:16-0400 Body vsyyjg026.84 kgDominick Barbosa MD Work Phone: [facility]08-19-2025 15:21-0400 Body xinqyy348.25 cmBenjamin Ball DO Work Phone: [facility]08-19-2025 15:21-0400 Body mass index (BMI) [Ratio]56.5 kg/k3Kgmosxdl Ball DO Work Phone: [phone]37[facility]08-19-2025 15:21-0400 Body .9 kgBenjamin Ball DO Work Phone: [phone] [place], [place] [address]108-19-2025 15:21-0400 Diastolic blood rahfsntq35 mm[Hg]Enzo Ball DO Work Phone: [phone]08-19-2025 15:21-0400 Heart vccq019 /minBenjamin Ball DO Work Phone: [phone]08-19-2025 15:21-0400 Respiratory rate12 /minBenjamin Ball DO Work Phone: [phone]08-19-2025 15:21-0400 Systolic blood mm[Hg]Ezno Ball DO Work Phone: [phone]04-14-2025 16:14-0400 Body ezlams755.25 cmK[facility]04-14-2025 16:14-0400Body mass index (BMI) [Ratio]56.4 kg/t6XzkiuwtsvKettering Health [facility]04-14-2025 16:14-0400Body ueiixl784.44 kgKettering Health [facility]04-14-2025 16:14-0400Diastolic blood kozhxaxm773 mm[Hg][facility] 01-16-2025 16:140400Heart deop183 /[facility] 01-16-2025 16:140400Respiratory rate12 /[facility] 01-16-2025 16:144435DjT4% (BldA) [Mass fraction]97 %[facility]04-14-2025 16:140400Systolic blood nwlrofbr266 mm[Hg][facility]04-09-2025 15:29-0400Body kzvawd289.9 cmDominick Barbosa MD Work Phone: [phone] [place], [place] [address]4-09-2025 15:29-0400 Body mass index (BMI) [Ratio]55.95 kg/q6HuhjbpsDominick Barbosa MD Work Phone: [phone] [place], [place] [address]4-09-2025 15:29-0400 Body .11 kgDominick Barbosa MD Work Phone: [phone] [place], [place] 4695010-09-2024 13:18-0400 Body unohpm332.9 cmDominick Barobsa MD Work Phone: [phone]10-09-2024 13:18-0400 Body mass index (BMI) [Ratio]56.42 kg/b5KxigjqgDominick Barbosa MD Work Phone: [phone] [place], [place] 4695010-09-2024 13:18-0400 Body ciwuat973.7 kgDominick Barbosa MD Work Phone: [phone] [place], [place] [address]8-30-2024 14:05-0400 Body .25 cmK[facility]08-30-2024 14:05-0400Body mass index (BMI) [Ratio]57.3 kg/l4NktozbzbbKettering Health [facility]08-30-2024 14:05-0400Body pmfevh157.5 kgK[facility]tering Health [facility]08-30-2024 14:05-0400Diastolic blood jcaecffk22 mm[Hg][facility] 06-03-2024 14:05-0400Heart rate83 /[facility] 06-03-2024 14:05-0400Respiratory rate12 /minKettering Health [facility] 06-03-2024 14:05-0400Systolic blood wqdbbuvt310 mm[Hg][facility]06-05-2024 15:02-0400Body iouhai935.9 cmDominick Barbosa MD Work Phone: [facility]06-05-2024 15:02-0400 Body mass index (BMI) [Ratio]56.32 kg/w0BvdiwshDominick Barbosa MD Work Phone: [facility]06-05-2024 15:02-0400 Body wsmjpa667.38 kgDominick Barbosa MD Work Phone: [facility]01-02-2024 12:15-0500 Body .25 cmBenjamin Ball Other [employer] Other 01-02-2024 12:15-0500Body mass index (BMI) [Ratio] 54.62 kg/f9Wzfuehzs Ball Other [employer] Other 01-02-2024 12:15-0500Body ioegzl800.44 kgBenjamin Ball Other [employer] Other 11-29-2023 15:29-0500Body .9 Diane Barbosa MD Work Phone: [facility]11-29-2023 15:29-0500 Body mass index (BMI) [Ratio]54.37 kg/l2SvqnjyaDominick Barbosa MD Work Phone: [facility]11-29-2023 15:29-0500 Body tmhgky837.85 Brown Barbosa MD Work Phone: [facility]08-23-2023 07:57-0400 Body wrvpbe049.88 cmBenjamin E Ball Work Phone: 1(627) [phone]-FerqbtmzndebgkSt. [facility] 4[facility] Work Phone: [phone]8-1970 07:57-0400Body mass index (BMI) [Ratio] 55.81 kg/v7Fzfftkmc E Ball Work Phone: 1(326)801-13598-8754AF-ChcdnbgdjuqpvjMississippi [facility] 4100 Work Phone: [phone] 07:57-0400Body surface area Derived from formula2.89 w9Sguhnyfb E Ball Work Phone: [phone]-ZjgoqfctkkmrybMississippi State Hospital 4100 Work Phone: [phone] 07:57-0400Body ywwqih478.66 kgBenjamin E Ball Work Phone: 1(408) 234-6034729-5694XI-KprmkxqmulflczMississippi State Hospital 4100 Work Phone: [phone] 07:57-06166 1Benjamin E Ball Work Phone: 1(829) [phone]-UohyacvepqysrzMississippi State Hospital 4100 Work Phone: [phone] on above:WbhaXswsc84-03-6027 12:20-0400Body .88 cmBenjamin E Ball Work Phone: 1(381) [phone]-XhkrzmqzqxwuspMississippi State Hospital 4100 Work Phone: [phone] 12:20-0400Body mass index (BMI) [Ratio] 56.31 kg/r2Aksugtbl E Ball Work Phone: [phone]-NktsaxiabkbwetMississippi State Hospital 4100 Work Phone: 1([phone])[phone] 12:20-0400Body surface area Derived from formula2.91 a3Hdqsebgr E Ball Work Phone: 1(507) [phone]-ZpedoyvvwawwzjMississippi State Hospital 4100 Work Phone: [phone] 12:20-0400Body tqxini951.33 kgBenjamin E Ball Work Phone: mg678-7139RF-ZrtplnmbtvurdhLake [facility] 4100 Work Phone: 1(216)[phone] 11:49-0400Body uduyedecvef51.8 [degF] Dominick Barbosa MD Work Phone: 1(216)[address] [place], [place] 9530708-11-2023 11:49-0400 Diastolic blood yqijmdkj49 mm[Hg]Dominick Barbosa MD Work Phone: 1(216)[address] [place], [place] 9530708-11-2023 11:49-0400 Heart rate82 /Franki Barbosa MD Work Phone: 1(216)[address] [place], [place] 9530708-11-2023 11:49-0400 Respiratory rate16 /Franki Barbosa MD Work Phone: 1(216)[address] [place], [place] 9530708-11-2023 11:49-0400 Systolic blood uqrbaskr259 mm[Hg]Dominick Barbosa MD Work Phone: 1(216)[address] [place], [place] 9530708-11-2023 11:18-0400 Body aofbfn866.8 cmDominick Barbosa MD Work Phone: 1(216)[address] [place], [place] 9530708-11-2023 11:18-0400 Body mass index (BMI) [Ratio]55.39 kg/m9GuqquezDominick Barbosa MD Work Phone: 1(216)[address] [place], [place] 9530708-11-2023 11:18-0400 Body eopojv164.1 kgDominick Barbosa MD Work Phone: [phone]06-14-2023 13:56-0400 Body .88 cmBenjamin E Ball Work Phone: mg758-5197VE-Ndjgocmuqhuzhy-[place] Work Phone: 1(258) 851-904906-14-2023 13:56-0400Body mass index (BMI) [Ratio] 56.63 kg/v7Pwjlqvjp E Ball Work Phone: [phone]-Nyhzokjevqddma-[place] Work Phone: 1(735) 909-234106-14-2023 13:56-0400Body surface area Derived from formula2.91 n8Pykhvgrr E Ball Work Phone: [phone]-Mjdrdtvsnkamcx-[place] Work Phone: 1(438) 488-540306-14-2023 13:56-0400Body ztcaat220.41 kgBenjamin E Ball Work Phone: [phone]-Sekrtspvkfxrdw-[place] Work Phone: 1(974) 422-988506-14-2023 13:56-32881 1Benjamin E [employer] Work Phone: [phone]-Cfrchbouilewbr-[place] Work Phone: Comment on above:WxzuMtkar93-91-6821 16:13-0500Body .88 cmBenjamin E [employer] Work Phone: [phone]-Zgcjoygjmycedp-[employer] Work Phone: 1(799) [phone] 16:13-0500Body mass index (BMI) [Ratio] 56.89 kg/l4Fnkjhuby E Ball Work Phone: [phone]-Nbzepdenkhgpzk-[place] Work Phone: 1(292) 540-385702-08-2023 16:13-0500Body surface area Derived from formula2.92 c5Fozcocns E [employer] Work Phone: [phone]-Icnnrdceddpudo-[place] Work Phone: 1(730) [phone] 16:13-0500Body jjezti468.29 kgBenjamin E Ball Work Phone: [phone]-Mscamayxysiifr-[place] Work Phone: 1(615) 173-124102-08-2023 16:13-18124 1Benjamin E [employer] Work Phone: WX-Ifwebgdmapshve-[place] Work Phone: Comment on above:[employer]Scale Encounters Encounter DateEncounter TypeCare ProviderFacilityStart: 07-12-2025 End: 35-12-5383Bwerat outpatient visit 15 minutesDominick Barbosa MD Work Phone: uh [facility] CenterComment on above:Chronic sphenoidal sinusitis (Primary Dx); Nasal congestionStart: 07-12-2025 End: 19-92-4311aoyuhuttflJUEPNGENewYork-[facility]byterian [facility] Start: 07-10-2025 End: 97-55-8169usjwvwdvyaGoluyqc Vytautas Giedraitis MDFacility:PM Debora Start: 05-23-2025 End: 14-58-4923yqdjhsrhsvWhmkcahg Ball DO Work Phone: [facility] Work Phone: Start: 05-23-2025 End: 40-70-2011Iohappq [facility] procedureNorth [facility] Work Phone: Start: 05-23-2025 End: 57-92-8865Bppfgeu encounter statusMercy Health Kings Mills Hospitaltart: 02-13-2025 End: 89-57-4003Hsgajb outpatient visit 15 minutesDominick Barbosa MD Work Phone: uh [facility] CenterComment on above:Benign neoplasm of sphenoid sinus (Primary Dx); Chronic sphenoidal sinusitisStart: 02-13-2025 End: 30-32-7875uxsgzfzjmvMSDGUAKNewYork-[facility] Start: 02-13-2025 End: 51-56-3075dconglunerPkmiiuy Vytautas Giedrasaeed MDFacility:PM [place] Start: 01-16-2025 End: 29-11-3246ljbkpwuizyDkqlmzechGeorgetown Behavioral Hospital Work Phone: Start: 01-16-2025 End: 68-46-9912Myrnjnj encounter procedureAllegheny [facility] Work Phone: Start: 01-16-2025 End: 85-93-7892vsvtumtlxoPzycwar Vytautas Giedraitis MDFacility:PM Debora Start: 01-11-2025 End: 94-10-3058Zcmyrk outpatient visit 15 minutesDominick Barbosa MD Work Phone: uh [facility] CenterComment on above:Benign neoplasm of sphenoid sinus (Primary Dx); Chronic sphenoidal sinusitis; Chronic maxillary sinusitisStart: 01-11-2025 End: 09-30-9225ruhfazbktpFAGESPZ D [facility] Start: 01-02-2025 End: 73-00-2598rbwmuyllpwDscxfig Vytautas Giedraitis MDFacility:PM Debora Start: 09-12-2024 End: 08-60-6206ochyemmzjlRhyxopm Vytautas Giedraitis MDFacility:PM Debora Start: 08-08-2024 End: 22-51-8111zcsvgwgmskApsxaqdedDelaware County Hospital Work Phone: Start: 08-08-2024 End: 35-10-8322Ngrsgvm encounter procedureMission Hospital Mcdowell Physician GroupC[facility] Work Phone: Start: 07-13-2024 End: 99-21-3085Zbpgil outpatient visit 15 minutesDominick Barbosa MD Work Phone: uh [facility] CenterComment on above:Post-nasal drainage (Primary Dx); Chronic maxillary sinusitis; Nasal congestionStart: 47-96-9481Uai-patient / Non-visitMission Hospital Mcdowell Physician GroupSamaritan Healthcare Professional [facility] Work Phone: Start: 50-29-9125Lyadxkn encounter statusSelect Medical [facility], Edwin Shawtart: 06-03-2024 End: 87-38-0502gcmernxgkkOwldiixdnDelaware County Hospital Work Phone: Start: 06-03-2024 End: 45-35-0693Kxhprqrtp for general adult medical examination without abnormal findingsSelect Medical [facility], Edwin Shawtart: 06-03-2024 End: 36-82-1025Qowehqm encounter procedureMission Hospital [facility]ician [facility] Work Phone: start: 03-09-2024 End: 50-47-3312Iyknxq outpatient visit 15 minutesDominick Barbosa MD Work Phone: uh [facility] CenterComment on above:Chronic ethmoidal sinusitis (Primary Dx); Chronic maxillary sinusitisStart: 10-06-2023 End: 80-70-7858kbyhhqlksfMmktsdos Ball Other [facility] [employer] Other Start: 84-02-2906Eigoey outpatient visit 15 minutes [facility] ClinicStart: 09-02-2023 End: 82-07-7461Wnsipq outpatient visit 15 minutesDominick Barbosa MD Work Phone: uh [facility] CenterComment on above:Chronic ethmoidal sinusitis (Primary Dx); Other chronic sinusitis; Chronic sphenoidal sinusitisStart: 32-85-1821Qjokc UpdateEnzo Vasques Work Phone: [phone]-FhgizvezcrvucbSt. Luke's Hospital 4102 Work Phone: Start: 25-24-5719muuezreandOb. Dominick Barbosa Facility:9479Start: 47-68-6938Subago follow up visit related to original px Enzo Vasques Work Phone: [phone]-BsqghpmipsuygaHarrison Community [facility] 4109 Work Phone: Start: 27-04-5305kqoktegtarVj. Enzo Vasques Facility:9479Start: 05-15-2023 End: 18-04-2015pbtsmwsoyzSo. Dominick BarbosaFacility:[facility]ENTERtart: 47-16-1019AHZYNMsychrtp E Ball Work Phone: [phone]-SylfqrcanlueluSt. Luke's Hospital 4100 Work Phone: Start: 05-15-2023 End: 77-53-5903Vuahpetfpu hospital visit by physicianDominick Barbosa MD Work Phone: cm SURG AIB LEGACYComment on above:Chronic ethmoidal sinusitis; Benign neoplasm of middle ear, nasal cavity and accessory sinuses; Chronic sinusitis, unspecifiedStart: 23-18-3812pgxwazatjsVm. Dominick BarbosaFacility:[facility] CENTERtart: 17-44-9697Zhtajhrvj for preprocedural laboratory examinationDr. Dominick BarbosaParkwest Medical Centertart: 21-65-7608Gmmnhd outpatient visit 15 minutesBenjamin E Ball Work Phone: [phone]-IyhorfqbafmxftLake Region Public [facility] 4100 Work Phone: Start: 40-69-1447Vnkxydi encounter procedureBenjamin E Ball Work Phone: [phone]-ZhmolgdvhjpgxeM [facility] Work Phone: Start: 87-63-6303oqlsvshiexCw. Dominick Barbosa Facility:9479Start: 01-07-2023 End: 05-61-0042kofbovsuxkBpvbdsds Ball Other [employer] Other Start: 98-91-4958Ieljecehg encounterBenjamin BallMIGUELG [facility] ClinicStart: 69-64-5992Fcbefa outpatient visit 25 minutesBenjamin E Ball Work Phone: [phone]-KuzyjcplxyzpnyHarrison Community Hospital 4107 Work Phone: Start: 54-17-6258ogurlzlijuEg. Dominick Barbosa Facility:9448Start: 01-05-2023 End: 20-82-7126vysfmbzkmkXpboagoi Ball Other [facility] Other Start: 29-62-2487Jjfgkq outpatient visit 15 minutes Enzo BallFPG Ball Medical ClinicStart: 11-19-2022 End: 34-30-0337qwgipyubiwBF DOCTOR MISCFacility:S8Yulye: 13-66-0604Moyinl outpatient visit 25 minutesBenjamin E Ball Work Phone: [phone]-XndstukzutbmttLake Region Public [facility] 4100 Work Phone: Start: 80-89-7098Wkvuxme encounter procedureBeraheem Vasques Work Phone: [phone]-Dmhlmainkfuonb-[place] Work Phone: Start: 19-84-1930bwqgkxfncuQh. Dominick Barbosa Facility:9479Start: 07-29-2022 End: 22-99-7933exhlfumhngFZ ENZO BALLFacility:S2Wzfyr: 07-22-2022 End: 52-35-1586lykyidtiqoIB ENZO BALLFacility:E0Mtkmm: 82-30-7033Xrrg child visitEnzo Vasques Other [place] [employer] Other Start: 03-20-2022 End: 69-46-7443bqwziyjpkmCE ENZO BALLFacility:F6Aaazt: 02-18-2022 End: 77-20-0448rnukqhbuxlFB ENZO VASQUESFacility:H1 Procedures DateProcedureProcedure DetailPerforming ClinicianStart: 92-76-7955Rsorh iv surg pathology gross&microscopic examDominick Barbosa MD Work Phone: Start: 28-13-5762Fcammh-up visitFollow-upDOMINICK BARBOSAStart: 01-10-7904Ohmtg iv surg pathology gross&microscopic examDominick Barbosa MD Work Phone: Start: 06-00-6734PIXNRWJQ PATHOLOGY RESULTSDominick Barbosa MD Work Phone: Start: 66-65-7068Jrdvclbnmh consultationStart: 58-34-5884Buedzscowc consultationStart: 04-08-8051Qzvlhzp examination of patient Enzo Vasques Other Start: 43-79-2534Jsfdcax and physical examination, administrativeEnzo Vasques Other Nasal sinus procedureBeraheem Vasques Work Phone: Plan of Treatment DateCare ActivityDetailAuthorStart: 23-51-4796Qxuuoa Vaccines (1 of 2)Zoster Vaccines (1 of 2)[facility]: 01-17-2026 End: 24-16-3879Epcphxc encounter xxpznmotl03/15/2026 3:15 PM EDT Office Visit [facility] [address] [place] [address] Dominick Barbosa MD [address] [place] [address] [facility]: 01-90-5965HXIMH-19 Vaccine ( season)COVID-19 Vaccine ( season)[facility]: 46-03-2292Lqfbtpmmf vaccination Influenza Vaccine (Season Ended)[facility]: 65-13-8837Pmrczawiy vaccinationInfluenza Vaccine (#1)[facility]: 01-11-2025 End: 08-02-9509Yzydzfr encounter vnezlcjpy10/09/2025 3:00 PM EDT Office Visit [facility] [address] [place] [address] Dominick Barbosa MD [address] [place] [address] [facility]: 07-13-2024 End: 22-35-9280Acpjsjs encounter ahvcmbbxm08/09/2024 1:15 PM EDT Office Visit [facility] [address] [place] [address] Dominick Barbosa MD [address] [place] [address] [facility]: 83-04-3949ULXEX-19 Vaccine ( season)COVID-19 Vaccine ( season)[facility]: 45-97-9586Vmksjerju vaccination [facility]: 95-95-6449Dibmfngx mellitus screening Diabetes ScreeningAv[facility]: 03-09-2024 End: 62-32-1257Rsmorpo encounter uskuhwvtd85/05/2024 2:45 PM EDT Office Visit [facility] [address] [place] [phone] Dominick Barbosa MD [address] [place] [address] [facility]: 58-36-6219MID, Provider: Dominick Barobsa, Status: Pen, Time: 2:45 PMFUV, Provider: Dominick Barbosa, Status: Pen, Time: 2:45 FSMP-Mwowwtsqkalooj-XauipowLake Region Public [facility] 4100 Work Phone: Start: 09-02-2023 End: 90-14-6673Pfelhwt encounter ywkroyrpb33/29/2023 2:45 PM EST Office Visit [facility] [address] [place] [phone] Dominick Barbosa MD [address] [place] [address] [facility]: 25-75-1086DPDXE-19 Vaccine ( season)COVID-19 Vaccine ( season)[facility]: 75-45-8021Tgwoqceck vaccination Influenza Vaccine (#1)[facility]: 04-45-9875NCF, Provider: Dominick Barbosa, Status: Pen, Time: 10:30 AMPOV, Provider: Dominick Barbosa, Status: Pen, Time: 10:30 XNQL-Gdgsdgvsjdihib-Gaejoqgk Work Phone: Start: 72-84-9566MKH, Provider: Dominick Barbosa, Status: Pen, Time: 12:30 PMPOV, Provider: Dominick Barbosa, Status: Pen, Time: 12:30 BCZX-Sufqkccfgmdqcu-Etdhqvhy Work Phone: Start: 26-73-2933VCkX/Tdap/Td Vaccines (7 - Td or Tdap)DTaP/Tdap/Td Vaccines (7 - Td or Tdap)[facility] Start: 82-26-1031SHeI/Tdap/Td Vaccines (1 - Tdap)DTaP/Tdap/Td Vaccines (1 - Tdap)[facility]: 05-20-9542FAPYA-19 Vaccine (2 - Booster for Isaias series)COVID-19 Vaccine (2 - Booster for Isaias series) [facility]: 91-16-2374Aztnjqivt C screeningHepatitis C ScreeningUnSelect [facility]: 01-29-4155BLT Vaccines (1 - Male 3-dose series)HPV Vaccines (1 - Male 3-dose series)[facility]: 61-08-5942VLJ Vaccines (1 - Male 2-dose series)HPV Vaccines (1 - Male 2-dose series)[facility]: 47-88-1273Jubvfxneg vaccinationVaricella Vaccines (2 of 2 - 2-dose childhood series)[facility]: 11-60-3150KDO Vaccines (1 of 1 - Standard series) MMR Vaccines (1 of 1 - Standard series)[facility]: 34-75-8531Evvtljhlz vaccinationVaricella Vaccines (1 of 2 - 2-dose childhood series)[facility]: 46-77-2828WIWIS-19 Vaccine (#1) COVID-19 Vaccine (#1)[facility]: 24-05-7753Qoxquuyil B Vaccines (1 of 3 - 3-dose series)Hepatitis B Vaccines (1 of 3 - 3-dose series)[facility]: 40-46-6385NHH screeningHIV ScreeningUnSelect [facility]: 05-64-2574Mfivu panelLipid PanelUnWilson Memorial HospitalStart: 46-37-5243Kxggxk Adult Physical Yearly Adult PhysicalUnWilson Memorial HospitalComprehensive metabolic 1999 panel - Serum or PlasmaKettering Health SpringfieldComprehenve metabolic 1999 panel - Serum or Cher[facility] HospitalPatient EducationLow back pain in adultsSelect Medical Specialty [facility] Work Phone: [facility] Immunizations Immunization DateImmunizationNotesCare SzckloqyOodfpqqk01-28-0834wgkzgfmwf virus vaccineDominick Barbosa MD Work Phone: [facility] Work Phone: Payers DatePayer CategoryPayerPolicy [id number] [facility] Care [facility] Member Subscriber Plan / Payer (Effective 2022-Present) Name: Wale Grey Member ID: [id number] Relation to Subscriber: Child Name: CHALINO LAWSON Subscriber ID: [id number] Date of : 1968 (Home) Address: [address] [place] [address] [place] [address] Payer ID:[id number] (NAIC) Type: Not on file Address: [facility] [address] [place] [id number] [id number]035921190-99-8950Aynnwcy [id number] .1.083872.3.579.[id number] .1.436238.3.57[id number] .1.209260.3.57[id number] 2.16.840.1.626052.3.57[id number] 2.16.840.1.190373.3.57[id number] 2.16.840.1.246053.3.57[id number] 2.16.840.1.484324.3.57[id number] 2.16.840.1.731062.3.57[id number] 2.16.840.1.274888.3.57[id number] 2.16.840.1.028641.3.57[id number] 2.16.840.1.252648.3.57[id number] 2.16.840.1.058843.3.57[id number] 2.16.840.1.077914.3.57[id number] 2.16.840.1.674024.3.57[id number] 2.16.840.1.704205.3.57[id number] 2.16.840.1.053290.3.57[id number] 2.16.840.1.153950.3.57[id number] 2.16.840.1.385184.3.57[id number] 2.16.840.1.260533.3.57[id number] 2.16.840.1.024879.3.579.2.1244Self-pay Social History DateTypeDetailFacilityStart: 09-02-2023 End: 06-32-2499Kpkwd a smokerNever a zigebvCA-Dfvvnpieaiuney-Huzkfmpx Work Phone: Start: 09-02-2023 End: 96-19-7424Woa Assigned At [facility] [employer] Other Tobacco smoking status NHISTobacco smoking consumption unknownUnWilson Memorial Hospital Work Phone: Start: 69-53-4652Alo Assigned At BirthNot on file [facility] Work Phone: Start: 52-26-7314Mqxoowh smoking status NHISNever smoked tobaccoUnWilson Memorial Hospital Work Phone: Start: 42-25-1497Yhxluvy use and exposureSmokeless tobacco non-userUnWilson Memorial Hospital Work Phone: Start: 08-23-2023 End: 99-70-9954Xfdqpiop to SARS-CoV-2 (event)Not sureUnWilson Memorial HospitalStart: 39-68-8589Fjb Assigned At [facility]ert[facility]: 08-29-2022 End: 57-36-8361ErnPfqw (finding)[facility] Shawtart: 15-97-0870Fwehjnrrs beverage intakeLifetime non-drinker (finding)[facility] Work Phone: Functional Status KaaySgcychzhepPzxbssXnippqmi51-29-1403Plpodhz Health Questionnaire 2 item (PHQ- 2) [Reported][facility] Work Phone: Clinical Notes 09-04-2020 to 07-12-2025 Note Date & KmcsWsbqRaszhztu23-24-3545 History of Present illness Narrative* Dominick Barbosa MD - 07/12/2025 3:00 PM EDT Images from the original [...] Wale Grey presents since last being seen 02/13/2025. He has done well since his last evaluation. He mentioned some intermittent nasal congestion. Main Symptoms: Patient does not have anterior nasal drainage. Patient does not have posterior nasal drainage. Patient has nasal airway obstruction. Seasonal. Patient does not have facial pain. Patient does not have facial pressure. Patient does not have decreased sense of smell. Associated Symptoms: Patient does not have headaches. Patient does not have throat clearing. Patient does not have coughing. Patient does not have dysphonia. Patient does not have nasal bleeding. Medications currently on for sinonasal symptoms: None. Active Problems: Problem List[1] Past Medical History: He has a past medical history of Asthma ([facility]) (2004), Obesity (2018), Other seasonal allergic rhinitis, Personal history of other diseases of the nervous system and sense organs, Personal historyof other diseases of the respiratory system, Personal history of other specified conditions, and Sleep apnea (2018). Surgical History: He has a past surgical history that includes Other surgical history (09/21/2019) and Sinus surgery (05/14/2023). Family History: Family History[2] Social History: He reports that he has never smoked. He has never used smokeless tobacco. He reports that he does not drink alcohol and does not use drugs. Allergies: Patient has no known allergies. Current Meds: Current Medications[3] Vitals: Visit Vitals Ht 1.829 m (6') Wt (!) 187 kg (411 lb 14.4 oz) BMI 55.86 kg/m Smoking Status Never BSA 3.08 m Physical Exam: Nose: On external exam there are neither lesions nor asymmetry of the nasal tip/dorsum. On anteriorrhinoscopy, visualization posteriorly is limited on anterior examination. For this reason, to adequately evaluate posteriorly for masses, source of epistaxis, polypoid disease, debridement, and/or signs of infections, nasal endoscopy is indicated. (Please see procedure below.) SINONASAL ENDOSCOPY (CPT 30773): To better evaluate the patient's symptoms, sinonasal [...] of the right nasal cavity revealed generalized edema throughout the maxillary, ethmoid, and sphenoid. There was pus in sphenoid draining to the sphenoethmoid recess. There is noobvious difference between the edema in the sphenoid and maxillary. Examination of the left nasal cavity revealed a normal middle meatus and sphenoethmoid recess without pus or polyps. There was discolored mucous at the anterior aspect of the middle turbinate. 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 Nasal airway obstruction 3. Asthma, allergy symptoms 4. Obstructive sleep apnea on positive pressure Discussion: Wale Grey and I discussed his exam. There was evidence of infection today and reactive edema throughout his right paranasal sinuses. The appearance of the mucosa in the sphenoid looks identical to the appearance of the mucosa in the maxillary making me think that this represents reaction to infection and not papilloma. Unfortunately, with the current infection it is not possible to know the difference without obtaining sampling. I recommended a 7- day course of Augmentin to treat the infection. He was comfortable with continued observation so I recommended repeat assessment in 6 months. All questions were answered. Scribe and Provider Attestation By signing my name below, I, Tana Vitale, attest that this documentation has been prepared under the direction and in the presence of Dominick Barbosa MD. All medical record entries made by the scribe were at the direction of Dominick Barbosa MD or personally dictated by Dominick Barbosa MD. I, Dominick Barbosa MD, have reviewed the chart and agree that the record accurately reflects my personal performance of the history, physical exam, discussion and plan. Signature: Dominick Barbosa MD [1] There is no problem list on file for this patient. [2] Family History Problem Relation Name Age of Onset Diabetes Father Emilio Grey Heart failure Father Emilio Grey Hypertension Father Emilio Grey Diabetes Maternal Grandmother Marybel Cisse Diabetes Maternal Grandfather Dominick Sandoval Thyroid disease Mother Chalino Lawson [3] Current Outpatient Medications: amLODIPine (Norvasc) 5 mg tablet, Take 1 tablet (5 mg) by mouth early in the morning.., Disp: , Rfl: cyclobenzaprine (Flexeril) 10 mg tablet, Take 1 tablet (10 mg) by mouth 3 times a day as needed formuscle spasms., Disp: , Rfl: metFORMIN (Glucophage) 850 mg tablet, Take 1 tablet (850 mg) by mouth early in the morning.., Disp:, Rfl: mometasone furoate, bulk, 100 % powder, Compound 2 mg capsule to be added to sinus rinse twice daily., Disp: 180 g, Rfl: 3 pregabalin (Lyrica) 75 mg capsule, , Disp: , Rfl: telmisartan (MIcarDIS) 20 mg tablet, Take 1 tablet (20 mg) by mouth early in the morning.., Disp: ,Rfl: amoxicillin-clavulanate (Augmentin) 875-125 mg tablet, Take 1 tablet by mouth 2 times a day for 7 days., Disp: 14 tablet, Rfl: 0 documented in this [facility] Work Phone: 1(246) 368-575108-01-2025 Evaluation note* Diagnosis Onset Date Resolution Status Admit Date Hypertension acuteAugust 2024 2:56pmIFG (impaired fasting glucose)acuteAugust 2024 2:56pmLow back painacuteAugust 2024 2:56pmObesityacuteAugust 2024 2:56pmWellness examinationacuteAugust 2024 2:56pm [facility] Work Phone: 1([phone]) 103-256005-12-2025 History of Present illness Narrative* Dominick Barbosa [...] 180 g, Rfl: 3 documented in this [facility] Work Phone: 1([phone]) 259-241004-14-2025 Evaluation note* Diagnosis Onset Date Resolution Status Admit Date Hypertension acuteApril 2024 3:19pmIFG (impaired fasting glucose)acuteApril 2024 3:19pmLow back painacuteApril 2024 3:19pmObesityacuteApril 2024 3:19pm [facility] Work Phone: 1([phone]) [phone] History of Present illness Narrative* Dominick Barbosa MD - 01/11/2025 3:00 PM EDT Images from the original note were not included. Sinus & Skull Base Surgery Chief Complaint: 1. 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 Goeva 08/25/19; s/p revision 05/15/23 2. Postnasal drainage [...] procedure below.) SINONASAL ENDOSCOPY WITH BIOPSY (CPT 32270-S): Due to the patient's nasal cavity / [...] Signature: Dominick Barbosa MD documented in this [facility] Work Phone: [phone]) 702-502510-09-2024 History of Present illness Narrative* Dominick Barbosa [...] procedure below.) SINONASAL ENDOSCOPY WITH BIOPSY (CPT 68601-R): Due to the patient's nasal cavity / [...] Signature: Dominick Barbosa MD documented in this [facility] Work Phone: 1([phone]) [phone] History of Present illness Narrative* Dominick Barbosa [...] (Please see procedure below.) SINONASAL ENDOSCOPY (CPT 44607): To better evaluate the patient's symptoms, sinonasal [...] of Agustina Barbosa MD. [facility] [address] [facility] Work Phone: 1([phone]) 994-954001-02-2024 Evaluation note* Encounter Date Diagnosis Assessment Notes Treatment Notes Treatment Clinical Notes Oct, Acute non-recurrent maxillary si nusitis (ICD-10 - J01.00) Instructed to use Robitussin or Mucinex for cough, saline or Flonase NS for congestion, Tylenol forpain and fever. Oct,Morbid (severe) obesity due to excess calories (ICD-10 - E66.01)This patient has been instructed on a low-fat, high-fiber diet. They are instructed to reduce calories, portion sizes and snacks. It is recommended that they exercise for 30 minutes, 3-5 times weekly. Oct,ody mass index [BMI] 50.0-59.9, adult (ICD-10 - Z68.43) [employer] Other 11-29-2023 History of Present illness Narrative* [...] (Please see procedure below.) SINONASAL ENDOSCOPY (CPT 11220): To better evaluate the patient's symptoms, sinonasal [...] free to contact my office by calling [phone] with any questions. Signature: Scribe Attestation By signing my name below, I, Reina Irvin , Tana attest that this documentation has been prepared under the direction and in the presence of Agustina Barbosa MD. documented in this [facility] Work Phone: 1([phone]) 332-757708-11-2023 NotePost Operative Note: PreOp Diagnosis: Right sinonasal inverted papilloma, chronic sinusitis Post-Procedure Diagnosis: Same Procedure: 1. Right nasal endoscopy with total ethmoidectomy including sphenoidotomy with tissue removal CPT 62626-A-45 2. Right nasal endoscopy with frontal sinusotomy CPT 53188-S 3. Right maxillary endoscopy with tissue removal 73530-Z 4. Extracranial CT image guidance CPT 17057 Surgeon: Familia Resident/Fellow/Other System Analyst: None Anesthesia: GET Estimated Blood Loss (mL): [...] middle turbinate was resected (more content not included)...[facility] 05-15-2023 Miscellaneous Notes* Op Note - Dominick Barbosa MD - 05/15/2023 4:37 PM EDT Post Operative Note: PreOp Diagnosis: Right sinonasal inverted papilloma, chronic sinusitis Post-Procedure Diagnosis: Same Procedure: 1. Right nasal endoscopy with total ethmoidectomy including sphenoidotomy with tissue removal CPT 97965-X-77 2. Right nasal endoscopy with frontal sinusotomy CPT 09573-Z 3. Right maxillary endoscopy with tissue removal 06170-X 4. Extracranial CT image guidance CPT 18138 Surgeon: Familia Resident/Fellow/Other System Analyst: None Anesthesia: GET Estimated Blood Loss (mL): [...] Dominick Barbosa) documented in this [facility] Work Phone: [phone]) [phone] Note* Op Note - Dominick Barbosa MD - 05/15/2023 4:37 PM EDT Post Operative Note: PreOp Diagnosis: Right sinonasal inverted papilloma, chronic sinusitis Post-Procedure Diagnosis: Same Procedure: 1. Right nasal endoscopy with total ethmoidectomy including sphenoidotomy with tissue removal CPT 53389-F-53 2. Right nasal endoscopy with frontal sinusotomy CPT 34658-G 3. Right maxillary endoscopy with tissue removal 25787-A 4. Extracranial CT image guidance CPT 40540 Surgeon: Familia Resident/Fellow/Other System Analyst: None Anesthesia: GET Estimated Blood Loss (mL): [...] Last Updated: 15-May-2023 17:00 by Dominick Barbosa) [facility] Work Phone: [phone]) [phone] History of Present illness Narrative* Wale presents for his first postoperative visit following right-sided sinus surgery in 05/15/23. * Following his surgery he has done well. He has been having some headaches that are controlled with Tylenol. His breathing has been significantly improved. He is rinsing several times per day. He denies significant nasal drainage. [facility] Work Phone: [phone] NoteHistory of Present Illness: History Present Illness: [...] Completion Last Updated: 15-May-2023 11:51 by Dominick Barbosa)[facility]08-11-2023 History and physical note* Dominick Barbosa MD [...] Last Updated: 15-May-2023 11:51 by Dominick Barbosa) [facility] Work Phone: [phone] History and physical note* Dominick Barbosa MD [...] 11:51 by Dominick Barbosa) [facility] [address] [facility] Work Phone: [phone] Evaluation note* Encounter Date Diagnosis Assessment Notes Treatment Notes Treatment Clinical Notes Jan, 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 Obstructive sleep apnea on positive pressure [facility]al[facility]ye[facility]Car[facility] Work Phone: [phone]) [phone] History of Present illness Narrative* Reason for visit: * WALE GREY patient presents since last being seen 01/06/23. * Wale presents for routine follow-up. He is interested in going forward with his inverted papillomaresection and would like to schedule it as soon as there is availability. [facility]-Rroseenjorxlsr-Xeukjiii Work Phone: [phone] History of Present illness Narrative* Reason for visit: * WALE GREY patient presents since last being seen 01/06/23. * Wale presents for routine follow-up. 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 [facility]cdz[facility]yyj[facility] Work Phone: [phone] Evaluation note* Encounter Date Diagnosis Assessment Notes [...] Always wear a mask in public places. Jan,cute non-recurrent maxillary sinusitis (ICD-10 - J01.00)Instructed to use Robitussin or Mucinex for cough, saline or Flonase NS for congestion, Tylenol forpain and fever. [employer] Other 12-01-2020 History of Present illness Narrative* [...] and is using flonase only as needed. XA-Kfznzqisznryib-Pajdxymx Work Phone: [phone] History of Present illness Narrative* Reason for [...] regard to his sleep apnea and Dr. Govae recommended that he return to see me for repeat assessment of the papilloma. He is using Flonase as needed and at baseline is doing very well outside of some nasal breathing issues. FZ[facility]Kovmzpnhpnzemx-[facility]bkqffjL[facility] Work Phone: Evaluation note* Diagnosis Chronic ethmoidal sinusitis Benign neoplasm of middle ear, nasal cavity and accessory sinuses Benign neoplasm of nasal cavities, middle ear, and accessory sinuses Chronic sinusitis, unspecified documented in this encounter [facility] Work Phone: [phone] note* Diagnosis Chronic ethmoidal sinusitis- Primary Other chronic sinusitis Chronic sphenoidal sinusitis documented in this encounter [facility] Work Phone: [phone] note* Diagnosis Chronic ethmoidal sinusitis- Primary Chronic maxillary sinusitis documented in this encounter [facility] Work Phone: [phone] note* Diagnosis Onset Date Resolution Status Bulging lumbar disc acuteElevated BP without diagnosis of hypertensionacuteLow back painacuteObesity acuteWellness examinationacute [facility] Work Phone: Evaluation note* Diagnosis Post-nasal drainage- Primary Other diseases of nasal cavity and sinuses Chronic maxillary sinusitis Nasal congestion Other diseases of nasal cavity and sinuses documented in this encounter [facility] Work Phone: [phone] note* Diagnosis Onset Date Resolution Status Bulging lumbar disc acuteElevated BP without diagnosis of hypertensionacuteLow back painacuteObesity acuteWellness examinationacuteIFG (impaired fasting glucose)acuteAcute sinusitis noneactive [facility] Work Phone: Evaluation note* Diagnosis 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, middle ear, and accessory sinuses Chronic sphenoidal sinusitis Chronic maxillary sinusitis documented in this encounter [facility] Work Phone: [phone] note* Diagnosis 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, middle ear, and accessory sinuses Chronic sphenoidal sinusitis documented in this encounter [facility] Work Phone: [phone] note* Diagnosis Chronic sphenoidal sinusitis- Primary Nasal congestion Other diseases of nasal cavity and sinuses documented in this encounter [facility] Work Phone: History general Narrative - Reported* Type Description Date Medical History Intermittent asthma Medical HistoryPolyp of right nasal cavityMedical HistoryLumbar back pain with radiculopathy affecting left lower extremityMedical HistoryMorbid obesityMedical HistoryAcute bilateral low back pain with left-sided sciaticaMedical History Acute seasonal allergic rhinitis due to pollenSurgical HistoryTotal endoscopic tpnbsqdhneeak51/21/2019Hospitalization Historysee surgical history [employer] Other History of Present illness Narrative* Wale [...] 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 [facility]-Acqpcsrtxncroa-[facility]ihobixCar[facility] Work Phone: Reason for referral (narrative)No reason for referral information availableSelect [facility] Work Phone: Summary Purpose Family History No Family History Records FoundUnknown Family Member Name Dates Details Family history of diabetes m ellitus: Father(V18.0, Z83.3) Status:ActiveThyroid trouble: Mother Status:ActiveHeart trouble: Father Status:ActiveAnxiety: Brother Status:Active Unknown Family Member Name Dates Details Family history of diabetes m ellitus: Father(V18.0, Z83.3) Status:ActiveThyroid trouble: Mother Status:ActiveHeart trouble: Father Status:ActiveAnxiety: Brother Status:Active Unknown Family Member Name Dates Details Family history of diabetes m ellitus: Father(V18.0, Z83.3) Status:ActiveThyroid trouble: Mother Status:ActiveHeart trouble: Father Status:ActiveAnxiety: Brother Status:Active Unknown Family Member Name Dates Details Family history of diabetes m ellitus: Father(V18.0, Z83.3) Status:ActiveThyroid trouble: Mother Status:ActiveHeart trouble: Father Status:ActiveAnxiety: Brother Status:Active Unknown Family Member Name Dates Details Family history of diabetes m ellitus: Father(V18.0, Z83.3) Status:ActiveThyroid trouble: Mother Status:ActiveHeart trouble: Father Status:ActiveAnxiety: Brother Status:Active Unknown Family Member Name Dates Details Anxiety: Brother Status:ActiveHeart trouble: Father Status:ActiveThyroid trouble: Mother Status:ActiveFamily history of diabetes mellitus: Father(V18.0, Z83.3) Status:Active Unknown Family Member Name Dates Details Family history of diabetes m ellitus: Father(V18.0, Z83.3) Status:ActiveThyroid trouble: Mother Status:ActiveHeart trouble: Father Status:ActiveAnxiety: Brother Status:Active Unknown Family Member Name Dates Details Family history of diabetes m ellitus: Father(V18.0, Z83.3) Status:ActiveThyroid trouble: Mother Status:ActiveHeart trouble: Father Status:ActiveAnxiety: Brother Status:Active Relationship Condition Age at Onset [...] Complaint and Reason for Visit Chief Complaint [facility] Reason for Visit Bulging lumbar disc Elevated BP without diagnosis of hypertension Low back pain Obesity Wellness examination Chief Complaint [facility] [phone] sinus infectionReason for VisitBulging lumbar disc Elevated BP without diagnosis of [...] section and content) DATE CREATED AUTHOR 03/06/2020 [facility] DATE CREATED AUTHOR AUTHOR'S ORGANIZ ATION 11/24/2022 [facility] DATE CREATED AUTHOR AUTHOR'S ORGANIZ ATION 05/28/2023 [facility] DATE CREATED AUTHOR AUTHOR'S ORGANIZ ATION 06/05/2023 [facility] DATE CREATED AUTHOR AUTHOR'S ORGANIZ ATION 07/15/2025 [facility] DATE CREATED AUTHOR AUTHOR'S ORGANIZ ATION 07/21/2025 [facility] REASON FOR VISIT (unrecogniz ed section and content) ReasonCommentsOtherRight endoscopic sinus surgery with image guidance, right endoscopic medial maxillectomy, septoplastyReasonCommentsFollow-up Care Teams (unrecognized sec tion and content) Team MemberRelationshipSpecialtyStart DateEnd Date Enzo Vasques DO PCP - Naahqru05/18/19Team MemberRelationshipSpecialtyStart DateEnd Date Enzo Vasques DO PCP - Teyrdoa92/18/19Team MemberRelationshipSpecialtyStart DateEnd Date Enzo Vasques DO PCP [facility]09/21/19 Cristiana Triplett APRN-REEL WORKER [address] [place] [address] PCP [facility]09/04/23 Team Status: Active Member Role Status Dates Enzo Vasques DO Primary Care Provider Active Team Status: Inactive Member Role Status Dates Enzo Vasques DO Primary Care Provide r, Attending Provider Active Start: June 03, 2024 End: June 03, 2024Team MemberRelationshipSpecialtyStart DateEnd Date Enzo Vasques DO [facility]09/21/19 Team Status: Active Member Role Status Greg Vasques DO Primary Care Provide r, Attending Provider Active Start: June 08, 2024 Team Status: Inactive Member Role Status Greg Vasques DO Primary Care Provide r, Attending Provider Active Start: August 08, 2024 End: August 08, 2024 Team Status: Inactive Member Role Status Greg Vasques DO Primary Care Provide r, Attending Provider Active Start: January 16, 2025 End: January 16, 2025Team MemberRelationshipSpecialtyStart DateEnd Date Enzo Vasques DO [facility]09/21/19 Team Status: Inactive Member Role Status Greg Vasques DO Primary Care Provider Active Start: May 23, 2025 End: May 23anastasiya Vasques DOAttgilmer ProviderActiveStart: May 23, 2025 End: May 23, 2025Team MemberRelationshipSpecialtyStart DateEnd Date Enzo Vasques DO [facility]09/21/19 Goals (unrecognized section and content) Goals may [...] PRIMARY CLINICAL RECORDS. [facility] Note, [facility]. provides no warranty or guarantee of the accuracy or completeness of information in this document.
--- OUTSIDE RECORDS SUMMARY | 2025-07-31 06:52 | XMS_ITS | Clinical Summary ---
Author Organization [place] tem Address [id number] [address] [place] [address] Care Team Providers Care Alliance Director Name Role Phone Unavailable Primary Care Provider Unavailabl e Social History Tobacco UseTypesPacks/DayYears UsedDateSmoking Tobacco: Never AssessedChildcare AnswerDate McbocgddAwpbqypktIhucipq40/10/2019EmploymentAnswerDate Recorded YklvddujmwHhjycbd99/10/2019Purpose - LifeAnswerDate RecordedPurpose and direction in egubGrchpmm03/10/2021Sex and Gender InformationValueDate Recorded Sex Assigned at BirthNot on fileLegal VhfAwez4305/08/2015 12:52 PM EDTGender IdentityNot on fileSexual OrientationNot on file Plan of Treatment Health MaintenanceDue DateLast DoneCommentsDepression Fqokuvfzv90/19/2012Tobacco Ezdsxlxwq04/19/2012dult BMI Igtttlpfr73/19/2018DTaP,Tdap and Td Vaccines (1 - Tdap)2019Influenza Rdsctpu5506/05/2025 Medical Devices Not on file Insurance
== END 2025-07-31 06:49 | disposition home or self-care (01) ==
LOC: MRI 06:48
PROVIDERS: Family Provider Internal Medicine; Visit Provider Nurse Practitioner
DX: M54.16 Radiculopathy, lumbar region (principal); M43.16 Spondylolisthesis, lumbar region; M51.369 Other intervertebral disc degeneration, lumbar region without mention of lumbar back pain or lower extremity pain
CPT/HCPCS: 72148

== ENCOUNTER 2025-08-30 15:47 | Outpatient (RCR) | payer BC, SELFPAY | END 2025-10-04 21:00 | disposition home or self-care (01) | LOC: PT 15:47 | PROVIDERS: Family Provider Internal Medicine; PCP Nurse Practitioner Family; Visit Provider Nurse Practitioner Family | DX: M54.16 Radiculopathy, lumbar region (principal) | CPT/HCPCS: 97012; 97110; 97113; 97162 ==

== ENCOUNTER 2025-09-07 15:21 | Outpatient (OUT) | payer BC, SELFPAY ==
--- NOTE | 2025-09-07 15:59 | P.CN_ITS ---
Consult Note: HPI Data of Consult Patient: known to practice within the last 3 years Requesting Physician: Shaneka Pena NP Primary Care Provider: Jacy Cooper APRN Family Provider: Enzo Vasques DO Consult Narrative Reason for consult: low back and LLE pain Narrative: Wale heredia pleasant 24 year old male presents for evaluation of chronic low back and LLE pain, hx of low back and LLE > 12 months worsening over the last month without injury/fall. Pain today 6/10 sharp, increasing to 8/10 with all activity, no improvement with heat or ice. mild relief with lying down. previously reported numbness tingling weakness, denies today. denies muscle spasms/cramping. previously failed tylenol, motrin, heat, ice, flexeril, baclofen, gabapentin, and > 6 weeks of PT/HEP. prior lumbar MRI consistent with multilevel stenosis and bulging disc. Pt pending further workup with [facility], pending additional lumbar xrays and CT scan. 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 - Personal history of other benign neoplasm (ICD-10) Sleep apnea ?G47.30 - Sleep apnea, unspecified (ICD-10) Asthma ?J45.909 - Unspecified asthma, uncomplicated (ICD-10) Pre-diabetes ?R73.03 - Prediabetes (ICD-10) Surgical History History of sinus surgery ?Z98.890 - Other specified postprocedural states (ICD-10) Meds Home Medications and Allergies Home Medications ?Medication ?Instructions ?Recorded ?Confirmed ?Type metformin 850 mg tablet 850 mg PO DAILY 07/04/2403/29 History baclofen 10 mg tablet 10 mg PO BID 07/28/24 History amlodipine 5 mg tablet 5 mg PO DAILY 01/10/2507/10 History pregabalin 75 mg capsule (Lyrica) 75 mg PO BID #60 cap s 06/15/25 07/10/25 Rx telmisartan 20 mg tablet 20 mg PO DAILY 06/15/25/0 03/29 History Allergies Allergy/AdvReac Type Severity Reaction Status Date / Time No Known Drug Allergies Allergy Verified 07/10/25 08:54 Exam Constitutional Documenting provider has reviewed patient's vital signs: yes Common normals: no apparent distress, oriented x3 and alert General appearance: cooperative HENNM Common normals: normocephalic, hearing grossly normal bilaterally and moist oral mucous membranes Head and scalp: normocephalic Eye Common normals: PERRL Pupil: PERRL Neck & C-Spine Common normals: full ROM General: normal visual inspection Chest Common normals: inspection of chest normal Respiratory Common normals: normal respiratory effort, no retractions and no use of accessory muscles Back & Pelvis Lumbar spine/lower back: ROM limited, pain with ROM, lumbar spinal tenderness and straight leg raise positive left; no paraspinal muscle tenderness and no paraspinal muscle spasm Other: pain following left L5,S1 strength 5/5 in BLE Neuro Common normals: oriented x3 Sensorium/orientation: alert Psych Common normals: mental status grossly normal, thought process normal, cooperative, affect normal, speech normal and activity/motor behavior normal Speech: normal speech Thought process: normal thought process Results Additional Findings Additional findings: If on a controlled substance or opioids, I have checked an [place]AR[place] report on this patient and there are no aberrancies noted in the prescribing history.??If on a controlled substance or opioid a drug screen was completed and reviewed within the last year, and if there has not been a drug screen completed we ordered one today to monitor higher risk, state monitored pain medication use. As part of providing excellent, safe, comprehensive care, the following was completed at our patient's visit: 1. A medication reconciliation and review to ensure accurate knowledge of current/active medications, including asking our patients to inform us about any qphu-zcu-pqtrrmp medications or herbal remedies/nutritional supplements/alternative remedies. 2. A review to specifically ensure our patients have had annual screening for s creening for depression, screening for tobacco use, and screening for unhealthy alcohol use. For concerning screenings had a discussion with the patient, provided patient education, and recommended follow-up with primary care provider when appropriate. If patient noted with a risk of falling, they received education on strength, gait, and balance training to prevent future risk of falling. Portions of this note may have been carried over from the previous visit and updated as appropriate. Please note this office utilizes paper charting in addition to the electronic medical record. A list of current medications, vitals, and PMH is available there as the clinical staff outside of myself do not have access to [employer] charting during the clinic day operations. As part of providing quality comprehensive care the current medications, vitals, and PMH were reviewed in the paper chart. Assessment and Plan Assessment and Plan (1) Degenerative disc disease (DDD) of lumbar region with discogenic back pain and leg pain: (2) Lumbar stenosis with neurogenic claudication: Assessment and Plan: The patient has had over 3 months of moderate to severe low back and LLE pain with functional impairment and inadequate response to conservative care including NSAIDS (unless there are contraindication such as concurrent blood thinners), multiple oral or topical pain medications, and home exercise program/physical therapy.? Patient has completed >6 weeks of guided home exercise program and/or formal physical therapy program without relief of their symptoms.? 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
== END 2025-09-07 15:22 | disposition home or self-care (01) ==
LOC: PM 15:22
PROVIDERS: Family Provider Internal Medicine; PCP Nurse Practitioner Family; Visit Provider Nurse Practitioner
DX: M51.362 Other intervertebral disc degeneration, lumbar region with discogenic back pain and lower extremity pain (principal); M48.062 Spinal stenosis, lumbar region with neurogenic claudication; M54.12 Radiculopathy, cervical region; M47.816 Spondylosis without myelopathy or radiculopathy, lumbar region; M51.369 Other intervertebral disc degeneration, lumbar region without mention of lumbar back pain or lower extremity pain; M79.10 Myalgia, unspecified site
CPT/HCPCS: G0463

== ENCOUNTER 2025-09-12 15:21 | Outpatient (OUT) | payer BC, SELFPAY ==
--- OUTSIDE RECORDS SUMMARY | 2025-09-12 10:16 | XMS_ITS | Continuity of Care Document ---
Author Organization [facility] Address [address] [place] [address] Phone Care Team Providers Care Commercial Driver Name Role Phone Enzo Vasques DO Primary Care Provider [phone] Jacy Cooper APRN Attending Provider [phone] Enzo Vasques DO Attending Provider Care Teams Patient Care Team Team Status: Active Member Role/Relationship Status Dates Enzo Vasques DO Primary Care Provider Active Visit Care Team Team Status: Inactive Member Role/Relationship Status Dates Enzo Vasques DO Primary Care Provider Active Start: August 24, 2025 End: August 24, 2025Marga Garay ProviderActiveStart: August 24, 2025 End: August 24, 2025 Patient Care Team Team Status: Inactive Member Role/Relationship Status Dates Enzo Vasques DO Primary Care Provider Active Start: September 12, 2025 End: September 12anastasiya Vasques DOAttending ProviderActiveStart: September 12, 2025 End: September 12, 2025 Chief Complaint and Reason for Visit Chief Complaint Admit Date Other intervertebral disc degeneration, lumbar reg August 24, 2025 1:50pm rash September 12, 2025 2 :54pm Reason for Visit Admit Date Left lumbar radiculopathy August 24, 2025 1:50pm Neurogenic claudication due to lumbar sp inal stenosis August 24, 2025 1:50pm Reason for Referral Type Reason(s) Provider Provider Contact Information Reynold mcmillan Address Start Date Left lumbar radiculopathy M54.16 - Radiculopathy, lumbar yklvcgK30.16 - Radiculopathy, lumbar region [facility] [phone] [facility] [id number] 2024 Allergies, Adverse Reactions, Alerts Allergen Type Severity Reaction Last Updated Verified Status No Known Allergies Allergy Unknown September 12, 2025 2:47pmYesActive Social History Smoking Status Unknown if ever smoked Observation Status Observation Response Date of Response Legal Sex Male (finding) Sex Assigned At BirthMaleDecember 1999 Family History Relationship Condition Age at Onset Recorded Date/T jose father Diabetes mellitus Unknown Problems Active Problems Problem Diagnosis/Recorded Date Onset Date Stat us Low back pain June 03, 2024 1:38pm Unknown Ac tive Wellness examination June 03, 2024 1:38pm Unknown Active IFG (impaired fasting glucose) June 08, 2024 12: 17pm Unknown Active Bulging lumbar disc June 03, 2024 1:38pm Unknown Active Neurogenic claudication due to lumbar spinal stenosis August 24, 2025 2:21pm Unknown Active Left lumbar radiculopathy August 24, 2025 2:21pm U nknown Active Hypertension January 14, 2025 2:27pm Unknown Acti ve Central stenosis of spinal canal June 21, 2024 8:04pm Unknown Active Obesity June 03, 2024 1:44pm Unknown Act phillip Medications Medication Status Dose Units Route Directions Qty Days Refills S tart Date Stop Date End Date Reason(s) Instructions Adherence Semaglutide (Ozempic) 0.25 mg or 0.5 mg (2 mg/3 mL) pen injector Discontinued 0.25 MG SUBCUT every week 3 28 1 June 08, 2024 11:00pm June 16, 2024 9:01pmfor 4 weeksMetformin 850 mg wgmbajJgwjlpgwabzv561YKJD Shecj34666Hjlrktrtx 11th, 2024 11:00pmSept2023 2:44pmMetformin 850 mg sxefooUwmgwqoldnpa296GSANVbbsj18550Iehmtantc 13th, 2024 2:44pmMay 2024 5:46amAmlodipine 5 mg tabletActive0.ROUTE.NSWCFLG271Tyqhb 2024 6:06amTAKE 1 TABLET BY MOUTH EVERY DAYComplies with drug therapyMetformin 850 mg tablet Active0.ROUTE.CSIJTXO461Ivy2024 5:46amTAKE 1 TABLET BY MOUTH EVERY DAY Complies with drug therapyTelmisartan 20 mg tabletActive0.ROUTE.TMJJTJR035Fzqbum 2024 4:43pmTAKE 1 TABLET BY MOUTH EVERY DAY FOR 30 DAYSComplies with drug therapyNabumetone 750 mg sklrinChgrbrmlxnut664HALJVnhjo dailyAugust 2023 11:00pmDece2023 4:07pmSemaglutide (Ozempic) 0.25 mg or 0.5 mg (2 mg/3 mL) pen injectorDiscontinued0.25MGSUBCUTevery week1.295491Npuvmiwa 11th, 2024 12:00amApril 2024 3:17pmfor 4 weeksAmlodipine (Norvasc) 5 mg tablet Ukignnpwggdf2HDIKRaroa34771Pswsutse 11th, 2024 12:00amMarch 2024 6:06am Gabapentin 300 mg jlocxdgGhwajsovkont550BJQGBqogh at bedtimeApr2024 11:00pmAt[facility] 1:53pmCyclobenzaprine 10 mg llcyxoBxwgkrfzrkvb41YIAM Three times daily as neededApr2024 11:00pmAugust 24, 2025 1:53pm Telmisartan 20 mg srooukVfkkjxryyaix62GODZHcpoo11267Islkj 13th, 2025 11:00pm May 14, 2025 4:43pmPregabalin 75 mg capsuleDiscontinuedMGPONove2024 12:00amDemarshfield medical center2024 3:05pmPregabalin 75 mg capsuleActiveMGPOThree times dailyDemarshfield medical center2024 3:05pmComplies with drug therapyCefuroxime Axetil 500 mg hxdmykIajlgjerlasg477RJJBDalsp zvobd0877IxhijmulAugust 08, 2024 12:00amApril 2024 3:15pm Vital Signs Vital Reading Result Reference Range Collection Date/Time Height 71.75 [in_i] August 24, 2025 1:93jyXwuqon348.40 kgAugust 24, 2025 1:51pmBMI (Body Mass Index)55.7 kg/m4JwxivroiAugust 24, 2025 1:61xmQpxqbb94.75 [in_i]September 12, 2025 2:84ptIjbnip620.97 kgDebanner cardon children's [facility] 2024 2:51pmHeart Rate94 /ipr04-237 September 12, 2025 2:51pmRespiratory rate12 /djj03-16Znspwknm 9th, 2025 2:51pmBP Bbfwkysp007 mm[Hg]100-140De2024 2:51pmBP Hotfbttye29 mm[Hg]60-100 September 12, 2025 2:51pmBMI (Body Mass Index)56.0 kg/k1Zsuliikv2024 2:51pm Advance Directives Advance Directive Response Recorded Date/ Time Advance Directives No June 03, 2024 12:52pm Insurance Providers Guarantor Wale Grey Address [address] [place] [address] Info.Home Phone: Coverage Status Update:2025 Payer Group Member ID Coverage Type Subscriber Relationship to Subscriber Effective Date Expiration Date [place] [id number] mayndard Id: [id number] [address] [place] [address] Home Phone: [place]/BS [id number] [place] Id: [id number] [address] [place] [address] Home Phone: SelfRegular Insurance [id number] [facility] [address] Work Phone: Id: [id number] [place] Id: [id number] [address] [place] [address] Home Phone: Self Encounters Encounter Location(s) Arrival/Admit Date Discharge/Departure Date Discharge/Departure Disposition Provider(s) Departed Physician/ Provider Office Visit -[facility] August 24, 2025 1:50pm August 24, 2025 2:20pm Discharged to home care or self care (routine discharge) Jacy Turovskaya , NDT INSPECTOR Departed Physician/ Provider Office Visit -[facility] September 12, 2025 2:54pm September 12, 2025 3:15pm Discharged to home care or self care (routine discharge) Enzo Vasques , Recent Diagnosis Onset Date Admit Date Left lumbar radiculopathy Unknown Novemb er 2024 1:50pm Neurogenic claudication due to lumbar spinal stenosis Unknown August 24, 2025 1:50pm Assessments Diagnosis Onset Date Resolution Status Admit Date Left lumbar radiculopathy acuteNovember 2024 1:50pmNeurogenic claudication due to lumbar spinal stenosisacuteNov2024 1:50pm Plan of Treatment Author Jacy Cooper [facility]AuthoredNov2024 2:30pmPatient is a 24-year-old male who presents today with complaints of back pain with left lower extremity radiation. He has been struggling with this for several years. He has been through numerous sessions of physical therapy and pain management without significant relief in symptoms. With pain management he has had epidural injections, RFA's, etc. with mid and low relief that did not last. His symptoms include lower back pain with radiation into posterior thigh and calf. Legs feel weak and tired. Not really having any claudicatory symptoms. He is frustrated with the lack of relief with conservative modalities and wants to discuss surgical options. He had recently underwent a repeat MRI of the lumbar spine which I independently reviewed. Patient does have some degenerative changes greatest at L4-5 and L5-S1. There are also disc herniations at L3-4 L4-5 and L5-S1. There is also retrolisthesis of L4 upon L5 and anterolisthesis of L5-S1. Mild neuroforaminal stenosis bilaterally at L3-4. At L4-5 there is moderate left neuroforaminal impingement. At L5-S1 there is severe left and moderate right neuroforaminal stenosis. I also reviewed the dynamic lumbar spine x-rays which are very poor quality. I will have to redo those. Patient will also get a CT of the lumbar spine for preop planning. He has a BMI of 55 and I explained to the patient and his mother that he may have to be referred to a larger facility if the operation is going to be deemed necessary which they both understand. Future Tests Future scheduled test information is unavailable Pending Tests Test Name Ordered Date Scheduled Date XR lumbar spine 6V w bending August 24, 2025 2:20pm CT lumbar spine gabe Gaytan 2024 2:20pm Future Visits Future appointment information is unavailable Future Procedures Future procedure information is unavailable Future Medications Future medication information is unavailable Patient Instructions Patient instructions are unavailable
--- OUTSIDE RECORDS SUMMARY | 2025-09-12 15:31 | XMS_ITS | CCD ---
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 Dominick Talavear Attending Dolly Barbosa, Dr. Dominick Talavera Admitting Dolly gutierrez Barbosa, Dr. Dominick Talavera Referring Dolly gutierrez Vasques, Dr. Enzo Diallo Primary Care Dollyvaginna beaulieu Virginia DO, Enzo Diallo Primary Care Provider U navailable Virginia DO, Enzo Diallo Primary Care Provider Enzo Vasques DO Primary Care Provider carmenon FOOD TECHNICIAN-COUNTER TENDER, Cristiana Jose Unavailable Enzo Vasques DO Primary Care Provider Virginia SHER, Enzo Primary Care Provider [phone] Virginia SHER, Enzo Attending Provider Giashelyitis , [...] OnsetReaction(s) Facility (8 sources)bee pollenAllergy to substance (finding)SL-Nzgeyldjhwgvxs-Lewbqoym Work Phone: (1 source)patient allergy list reviewed by nurse or physiciaPropensity to adverse [id number]:Therabiol Other Medications Current Medications MedicationDrug Class(es)DatesSig (Normalized)Sig (Original)amLODIPine 5 mg oral tablet (5 sources)Dihydropyridine Calcium Channel BlockerStart: 34-12-6599vmrc 1 tablet by mouth in the morningamLODIPine (Norvasc) 5 mg tablet Take 1 tablet (5 mg) by mouth early in the morning.. 05/15/2025 ActiveStart: 92-30-6177cnkd 1 tablet by mouth once dailyAmlodipine 5 mg tablet Active 0 .ROUTE .COMPLEX 90 December 20, 2024 7:06am TAKE 1 TABLET BY MOUTH EVERY DAY Complies with drug therapyStart: 09-14-2024 End: 19-36-4498hvpv 1 tablet by mouth once dailyAmlodipine (Norvasc) 5 mg tablet Discontinued 5 MG PO Daily September 14, 2024 1:00am December 20, 2024 7:06amamoxicillin 875 mg / clavulanate 125 mg oral tablet (12 sources)Penicillin-class AntibacterialStart: 07-12-2025 End: 21-84-0742wdup 1 tablet by mouth twice dailyamoxicillin-clavulanate (Augmentin) 875-125 mg tablet Indications: Chronic sphenoidal sinusitis Take 1 tablet by mouth 2 times a day for 7 days. 14 tablet 07/12/2025 07/19/2025 Active Start: 58-99-0377yexl 1 tablet by mouth every twelve hoursAmoxicillin-Pot Clavulanate 875-125 MG 1 tablet Orally every 12 hrs for 7 days Oct, ActiveStart: 11-26-2021 End: 88-23-2432xfsr 1 tablet by mouth twice dailyAmoxicillin-Pot Clavulanate 875-125 MG Oral Tablet TAKE 1 TABLET TWICE DAILY UNTIL FINISHED. Quantity: 20 Refills: 0 Ordered: 12-Nov-2022 Dominick Barbosa MD Start : 12-Nov-2022 End : 18-Mar-2023 Completecyclobenzaprine hydrochloride 10 mg oral tablet (3 sources)Muscle RelaxantStart: 70-28-9658lwzx 1 tablet by mouth three times daily as needed for muscle spasmscyclobenzaprine (Flexeril) 10 mg tablet Take 1 tablet (10 mg) by mouth 3 times a day as needed for muscle spasms. 01/19/2025 Activegabapentin 300 mg oral capsule (2 sources)Anti-epileptic AgentStart: 78-97-2944pgkt 1 capsule by mouth once daily at bedtimeGabapentin 300 mg capsule Active 300 MG PO Daily at bedtime January 16, 2025 12:00am Complies with drug therapymetFORMIN hydrochloride 850 mg oral tablet (11 sources)BiguanideStart: 57-03-0278jlyd 1 tablet by mouth once dailyMetformin 850 mg tablet Active 0 .ROUTE .COMPLEX 90 February 14, 2025 6:46am TAKE 1 TABLET BY MOUTH EVERY DAY Complies with drug therapyStart: 06-16-2024 End: 54-57-8079mgtx 1 tablet by mouth in the morningmetFORMIN (Glucophage) 850 mg tablet Take 1 tablet (850 mg) by mouth early in the morning.. 06/17/2024 Activemometasone furoate, bulk, 100 % powder (6 sources)Start: 79-55-8829esaiihyxep furoate, bulk, 100 % powder Indications: Other chronic sinusitis Compound 2 mg capsule to be added to sinus rinse twice daily. 180 g 3 09/03/2023 Activepregabalin 75 mg oral capsule (1 source)Start: 78-89-9183mbdzmsxuci (Lyrica) 75 mg capsule 06/16/2025 Active telmisartan 20 mg oral tablet (4 sources)Angiotensin 2 Receptor BlockerStart: 64-56-2039istj 1 tablet by mouth once dailyTelmisartan 20 mg tablet Active 0 .ROUTE .COMPLEX 90 May 14, 2025 5:43pm TAKE 1 TABLET BY MOUTH EVERY DAY FOR 30 DAYS Complies with drug therapy Start: 01-16-2025 End: 21-55-7707doqz 1 tablet by mouth in the morningtelmisartan (MIcarDIS) 20 mg tablet Take 1 tablet (20 mg) by mouth early in the morning.. 04/12/2025 Active Completed/Discontinued Medications MedicationDrug Class(es)DatesSig (Normalized)Sig (Original)Acetaminophen (1 source)Tylenol TABS Quantity: 0 Refills: 0 Ordered: 27-May-2023 DO Active cefdinir 300 mg oral capsule (2 sources)Cephalosporin AntibacterialStart: 57-08-8388vpdc 1 capsule by mouth twice dailyCefdinir 300 MG Oral Capsule TAKE 1 CAPSULE BY MOUTH TWICE A DAY Quantity: 14 Refills: 0 Ordered: 25-Aug-2022 DO Start : 25-Aug-2022 Complete cefuroxime 500 mg oral tablet (3 sources)Cephalosporin AntibacterialStart: 08-08-2024 End: 48-91-4786grcq 1 tablet by mouth twice dailyCefuroxime Axetil 500 mg tablet Discontinued 500 MG PO Twice daily 17 04August 08, 2024 1:00am January 16, 2025 4:15pmnabumetone 750 mg oral tablet (9 sources)Nonsteroidal Anti-inflammatory DrugStart: 06-03-2024 End: 56-77-6205wldl 1 tablet by mouth twice dailyNabumetone 750 mg tablet Discontinued 750 MG PO Twice daily June 03, 2024 12:00am September 14, 2024 5:07pmStart: 85-37-6875kjxa 1 tablet by mouth twice daily at mealtimeNabumetone 750 MG Oral Tablet TAKE 1 TABLET BY MOUTH TWICE A DAY WITH FOOD Quantity: 30 Refills: 0 Ordered: 24-Jun-2022 DO Start : 24-Jun-2022 CompletepredniSONE 20 mg oral tablet (2 sources)Start: 92-83-5945wykbbmSPHO 20 MG Oral Tablet TAKE 1 TAB THREE TIMES DAILY W/ FOOD X 3 DAYS THEN TWICE A DAY W/ FOODX 2 DAYS THEN W/ FOOD X 3 DAY Quantity: 18 Refills: 0 Ordered: 18-Feb-2022 DO Start : 18-Feb-2022 Complete Semaglutide (5 sources)Start: 09-14-2024 End: 34-36-1559Pntoexyosdm (Ozempic) 0.25 mg or 0.5 mg (2 mg/3 mL) pen injector Discontinued 0.25 MG SUBCUT every week 1.472 September 14, 2024 1:00am January 16, 2025 4:17pm for 4 weeksStart: 06-09-2024 End: 56-37-9069Fotttbfgmda (Ozempic) 0.25 mg or 0.5 mg (2 mg/3 mL) pen injector Discontinued 0.25 MG SUBCUT every week 3 June 09, 2024 12:00am June 16, 2024 10:01pm for 4 weeksStart: 06-09-2024 End: 35-88-2118Ybunqfhpacs (Ozempic) 0.25 mg or 0.5 mg (2 mg/3 mL) pen injector Discontinued 0.25 MG SUBCUT every week 3 June 08, 2024 11:00pm June 16, 2024 9:01pm for 4 weekssodium chloride 0.111 meq/ml nasal solution (3 sources)Start: 42-78-7325gggk 5 spray(s) nasal route four times dailySB Saline Nose 0.65 % Nasal Solution 5 sprays each nostril four times per day Quantity: 1 Refills: 2 Ordered: 15-May-2023 Dominick Barbosa MD Start : 15-May-2023 ActivetiZANidine 2 mg oral tablet (2 sources)Central alpha-2 Adrenergic AgonistStart: 25-06-3170llzd 1 tablet by mouth once daily at bedtimetiZANidine HCl - 2 MG Oral Tablet TAKE 1 TABLET BY MOUTH EVERYDAY AT BEDTIME Quantity: 15 Refills: 0 Ordered: 24-Jun-2022 DO Start : 24-Jun-2022 CompletetraMADol hydrochloride 50 mg oral tablet (2 sources)Opioid AgonistStart: 92-44-7012bcmt 1 tablet by mouth three times daily as neededtraMADol HCl - 50 MG Oral Tablet TAKE 1 TABLET 3 TIMES DAILY NEEDED. Quantity: 25 Refills: 0 Ordered: 15-May-2023 Dominick Barbosa MD Start : 15-May-2023 Active Problems Active Problems Problem ClassificationProblemDateDocumented DateEpisodic/ChronicAsthma (3 sources)Asthma without status asthmaticus; Translations: [Asthma, unspecified, unspecified status]Onset: 20-43-8952PuqbyboNpfnxios mellitus without complication (7 sources)Hyperglycemia; Translations: [Hyperglycemia, unspecified]06-08-2024 EpisodicEssential hypertension (4 sources)Hypertensive disorder; Translations: [Essential (primary) hypertension]28-50-3179GcjhztuVbuhgdzbjxcys and screening for infectious disease (1 source)Contact [...] [BENIGN DANAE MED EAR NASAL ACC SINUS]Onset: 10-46-9395NempyexdGbaee and unspecified benign neoplasm (1 source)Benign neoplasm of nose, middle ear and accessory sinuses; Translations: [Benign neoplasm of middleear, nasal cavity and accessory sinuses] 35-16-9090AvrfecdlEaxib and unspecified benign neoplasm (2 sources)Benign neoplasm of sphenoidal sinus; Translations: [Benign neoplasm of middle ear, nasal cavity andaccessory sinuses]51-60-4989BpneghuyQfaca circulatory disease (2 sources)Elevated blood-pressure reading without diagnosis of hypertension; Translations: [Elevated blood-pressure reading, without diagnosis of hypertension]29-84-7522LjtejoqhSqzbd circulatory disease (2 sources)Elevated blood-pressure reading, without diagnosis of hypertension; Translations: [Elevated blood pressure reading without diagnosis of hypertension]84-00-6570YhcsywnlMsfik lower respiratory disease (8 sources)H/O: asthma; Translations: [Personal history of other diseases of respiratory system]EpisodicOther nervous system disorders (16 sources)H/O: respiratory disease; Translations: [Personal history of other specified diseases]EpisodicOther nervous system disorders (3 sources)Postoperative pain ; Translations: [Other acute postoperative pain] EpisodicOther nutritional; endocrine; and metabolic disorders (2 sources)Morbid (severe) obesity due to excess calories; Translations: [Morbid (severe) obesity due to excess calories]Onset: 24-44-6193UijeccqRnlew nutritional; endocrine; and metabolic disorders (2 sources)Body mass index (BMI) 50.0-59.9, adult; Translations: [Body mass index [BMI] 50.0-59.9, adult]Onset: 54-43-4374HlqiuxyCfdld nutritional; endocrine; and metabolic disorders (2 sources)Body mass index 40+ - severely obese; Translations: [Body mass index (BMI) 50.0-59.9, adult]Onset: 05-70-2256FfczhrdMrkmd nutritional; endocrine; and metabolic disorders (6 sources)Obesity; Translations: [Obesity, unspecified]Onset: 06-17-2013 76-77-6020AwbjhbnShgfb nutritional; endocrine; and metabolic disorders (1 source)Morbid obesity; Translations: [Morbid (severe) obesity due to excess calories]ChronicOther nutritional; endocrine; and metabolic disorders (3 sources)Obesity, unspecified; Translations: [Obesity, unspecified]06-03-2024 ChronicOther upper respiratory disease (8 sources)Seasonal allergy; Translations: [Allergic rhinitis, cause unspecified]ChronicOther upper respiratory disease (1 source)Seasonal allergic rhinitis; Translations: [Other seasonal allergic rhinitis]Onset: 94-60-4231SmkulgeColjj upper respiratory disease (1 source)Allergic rhinitis; Translations: [Allergic rhinitis, unspecified] Onset: 17-57-8705GbllgizNhbmo upper respiratory disease (1 source)Allergic rhinitis due to pollen; Translations: [Allergic rhinitis due to pollen]ChronicOther upper respiratory disease (9 sources)Nasal congestion; Translations: [Other disease of nasal cavity and sinuses]28-37-0242GwtuwivsTkduy upper respiratory disease (2 sources)Polyp of nasal cavity; Translations: [Polyp of nasal cavity]Onset: 15-56-8319FbjoglmiRccey upper respiratory infections (20 sources)Chronic ethmoidal sinusitis; Translations: [Chronic ethmoidal sinusitis]Onset: 45-41-6665ChdnqqdUjtrr upper respiratory infections (7 sources)Acute maxillary sinusitis, unspecified; Translations: [Acute pharyngitis]Onset: 11-48-4373QjuyofseZecfemfk codes; unclassified (1 source)Obstructive sleep apnea (adult) (pediatric); Translations: [Obstructive sleep apnea (adult) (pediatric)]Onset: 28-55-2390Gmvathr Spondylosis; intervertebral disc disorders; other back problems (7 sources)Other intervertebral disc degeneration, lumbosacral region; Translations: [Disorder of lumbar disc]Onset: 686514-44-5675Rqrlena Spondylosis; intervertebral disc disorders; other back problems (20 sources)Radiculopathy, lumbar region; Translations: [Intervertebral disc disorders with radiculopathy, lumbar region]Onset: 92-68-7204Eefzhylx Past or Other Problems Problem ClassificationProblemDateDocumented DateEpisodic/ChronicAbdominal pain (1 source)Abdominal pain; Translations: [Unspecified abdominal pain]Onset: 94-87-5286IofgjyrrNwoxkkeid infection; unspecified site (1 source)Bacterial infectious disease; Translations: [Bacterial infection, unspecified, in conditions classified elsewhere and of unspecified site]Onset: 70-82-3370KuvjmqpqXpyih acquired deformities (1 source)Other specified deforming dorsopathies, lumbar region; Translations: [OTH DEFORMING DORSOPATHIES LUMB RGN]Onset: 81-02-5116XehqkkwnVzvad and unspecified benign neoplasm (1 source)Benign neoplasm of skin of face; Translations: [Other benign neoplasm of skin of other parts of face]Onset: 40-99-0013ImeytnfwEwuai connective tissue disease (1 source)Abnormal posture; Translations: [ABNORMAL POSTURE]Onset: 03-25-2022 EpisodicUnclassified (6 sources)Onset: 09-02-2023 Resolved: Viral infection (1 source)COVID-19 Results Test NameValueInterpretationReference RangeFacilitySurgical pathology study Ordered By: Claudio Ireland on 00-31-4325Ulhyyfooxv comment Pasquale (Report) h1vvuRYyUUTna2gbYINoeNHxDzSeMzWgVvBmNzutwLVwXVqcxdHeVHihn5JmG7TuHdZkKLsrndZvTRNw LkodzoibDXFfMES0hpFe FCJoSDutVCSePTkmQa8usJJtoChqKfQtAJVul1hqyrEQEMbcRYFIGGq7v4zwIIImIqO8nDGgVHmdC2ud qcMsdWNeW5Syn2NtVAk9 xD81LJLijM9cpXBdAPebkkQuPsQ2AStuHJWeXdI7ZVVnuWTrOXItS2nmGLSwSIxxMOShVSzeqUSjPKD4 qYvci6K2bMWzjOCvbPqv EpUxHsIlFbHVp0BiQGw6aXptL0GrUXEjRvA9wMVfIFZfJLiiOBGqYYTehvC8jD51ZUyfjuK8nEWui0Jl z47rk426pR4jzCZxEEU0 UXNaPJJsaTIcLHCsRKL7CRXvsBVcY4qnEzJyaCFtU2BkYfTixSKqG7CkDfBpqNVlB3QkZcQkbVMpELFm sZO6NSgxa851VYP6LeEy NG5vU4Ihm1E0dU9nhQZzKGCgcTApBlKdGOLigj7cjHSgIGxlh0DrHGJ1pfG3sCSfaFYhMFRfCA12Kmwq v1EbLnacXFN7SIGaucEs u6Hxh6enFxVnpcAsT4loI6EzEFQgVHDdSWWhJlDizbOfo3Tgj3XouTJhrZe7e9hlAWKbKDFhcIyoq1yd NNI5DXCgF2Q9kVBkt6ef NGwyJLAoeUD2muC5CAciGXJhlyZ1pqP7MSokDZElsGJ9zgA8IGjiVTXtGnZ3xxI1XFkwGNXnLES6JrXx ORJwo8SftkzaIzEyp1Vm lPTlIJwcP26lu610KLVqawFkC5rweVMjogepxCZousgxDMqrlrJ0UYKdFBOaBHlfSTWaVRJePnQvxOQa ZzEwMzNcaGljaFxmMVxk SgXwMJCtJVjeM1oqWcVvQuHbVTVThGN8lWEdi3hattG5xSZiUC4iUXHjnJZpbzYrf6L0YTP5rAFebO5u zJXpJQXbvDAmwhQlan96 bMZipJY2SJVxNBHixARmkV3bXGQkCZOFlQ6ogJGVyeCnmaMzDEMmgFmday4EeUMcjc0jqTJdC6OjySqb rBLpQYIyDUMiqNkoeZItGDXhTQIoxvowl4DcNYYzyZUsP0ZlDV9wRZFpph03Oxbndnvzth [facility] Work Phone: Pathology report Cancer NarrativeSurgical Pathology Case: [id number] Authorizing Provider: Dominick Barbosa MD Collected: 01/11/2025 1620 Ordering Location: [facility] Received: 01/11/2025 1620 Pathologist: Claudio Ireland MD Specimen: SINUS MASS RIGHT [facility] Work Phone: Pathology report final diagnosis Narrative b2elcGKrUDWakWUvLFFsVUmkvoQsVHAykTXhV2KxldrpGIxaTA7pXI2ydLhkiXXbwOWjUOWpIzKur5vt w778sNGlc6cpXTZKfmgr yWq7nFcdA37js5H7UgyzA8wuINGaYHjoXZBkJJdqiKRbFSd3IHPneHEkhbNqBcRiRSVigQUbmWV1DMSp HX6ymsmoLCklTMloGEBy dzG9YGQeyUVmY8JvKAMcJB5mhqukIQO6FOoeXVSiEJY6SxXeURXlo3Xxnrl8WwDyoIr6j0jfRILhSGZt pGvfx0msMUX8UDKoaZAs S1xekQ2qSOVxKQ8hozfiu4kkTZvfEZxpTTXosCS4gxX1SSGbiSLvK0RoxH8zSNMvCOIsmdHurCuveR4h ZnMyMlxjZjEgUmlnaHQg m0mcaQVvoLPpicqywNMxZTJjGJKsvUBmR1ubs80oz8SeMCJqcBfnpK8mNWnuiG15TBX5RQJlmOprHMjy xO51i5n8hR9fENQkIOkz IaeriS9efN7vsQXgaA8tuiTrAAvqdT3giYSxGEBcfvskajSru0plRZ9pZOcjT1gxB5QsRRKkAPfikQva c2dgMR5rYUkidlRanHNn HNTppmMzpv3hULTaPLDgdXfhrMWlTnylBOJpDX0bADCuHPAZv6A0uA2uXR9nVZDiynEdg4r0tHUzciLq tFibyNNvB2IfmVTeJDBpr8iwZ1xyWLRanmEvapnqYssxUENgqXOmKRabq5rhYUQ5Swhlpovhgi [facility] Work Phone: Pathology report gross observation Narrative n9jwhMXlFRUrrFCAVVH9ZBUyBE3auEzqoZf5vBxzXHXsdrQ8tPHaSDheo7ysKWH6z5cerlOSXclqSNDg JI6zOCqiDUUjYS3wLxRm YSUaJeQfKKGrkKCcecLfCtQaZMCowXRapYJ2HFNzHD2exoqpSVioMTyqMRFrhsG5BLCprWVgG3VjWLTp LC1pephxNOX5EDDYXcmz Cr4ueHHygWKNNpgyVpAmPjOiVOBxUHHlORPjs9uqemZEWRgxVVECIPl8DTo4BNOdYEBopYLku5O4FQow w7flf8PpXJOxSXi8dE7F GsndCYM7ALTKNxxnFnbqdCvje7YiwLWhFTJzPFktlZNrBQCcIANwBJibPzETQfDwWaHgOvj0NYA9QHXl SCx5XLnzIkHRZGBbCBU6 PIAbKEj6UPoaUHvjeDLdIYPcCSKfBQSnJFnlkxV7z6obUEZfpUBjXXN2WFzzn1zqRIdwCSO9ETZfOkKh LCVqCE7SBtKkGOV4TWJ8 DAn7XcH6CTr4GQHONzXmWhJrXNl1HeC7VuFeWYt6BCf0NKhFAvGeJYaqNGg8WWC8BSX7FvI5LNaxpfbx TJn8KMYyHDlwbyFaVEbv HickUPzvH20srMQkRPTBLxvbxLEbuiycvEebKyRwjPEfOzAgFBzmnWFmqHJzGB3RAAv0lxUhKFQxYELt EzJtFgEbHNw0KYCkoF1m Jt8muZFvuL2qHMueFfAoYYRdw3p6mRW7aGVbaFG1vEJkqUrpJW9ohGZfFH1nWWszl0AjhEKeTE50zZJs bbYlgoTzXjYjedQcZV2o u4XiouzomSFkOHVyhrRlAZNozGppt8ytJBTdM64btgQbu6FciKWvCAqenWFfKEEaXbYvlOnan5OmPU1e CCG8qnsbRsGiKaZhrBDm ShqxbGFbCixrC27uLHDWxJAljHAuc8NbXGXxpOKlP3hhQH8qQHFqd4ArfChqfhMsmvBjpsguHCGhgSQj MVFoWOP9nTDcu9LhG1lh UZ5ixJCwCktpKYK1UBGbOXUWuHFpu6OlU1fwGS9qoDJtCN09uOXqdCszy5BvnVm4gNYdPFukWD7cQQXs JBGtRDH7XB1isKOzZL8V OPUfTvZlFHAyZ8ykXPEtFI5NM97VNByeFXMiH79un0CJp6Vea5lkrFgjp7NwkCEmOY89JVHckREdJWJ2 RO1qpFekFZFrPUbyrPYnRIDMOxcqeRCdkgEWLq2=Kdiiavvoug [facility] Work Phone: Pathology report relevant history Narrative o7uleHZqEDIyj9nwVKGroZRjPeTwHnYnHdSyJvp3EUMcbgY1Zxj2MPExRQdglT3vTINbZQopK3bqwdVk mOPhVOPcEGp2oZ2uyNplaL7qYhQsPqEdYMNImGvcxa0hHADkFBJlynVdfUNgc8suWDMqbO== [facility] Work Phone: [facility] Work Phone: Surgical pathology studyon [id number] pathology studyPathology report.total SEE COMMENT Surgical Pathology Case: [id number] Authorizing Provider: Dominick Barbosa MD Collected: 01/11/2025 1620 Ordering Location: [facility] Received: 01/11/2025 1620 Pathologist: Claudio Ireland MD [...] specimen is entirely submitted in one cassette. [facility] AmbulatorySurgical pathology studyOrdered By: Shakir Ford on 11-54-5589Lesqjotluy comment Pasquale (Report) v1souOEtCZBgn6hnLQSzuCZxPeWmSeUjMyVmBhjyrLTqGRnpijZnONugi3OuI7FfUdPxQTijkgUaFECv XjpdncjqYZJhJVA7qkSk QWXlUFwdXEEjGOiyHq2zrTDcqBemShZmEWVtt8qvgtEGSTvfPPXIYSv9r9uuVMCeBpN6rRWvITmkT8if hpAjhZOfK9Zrm2SjDCj8 jP09NGXpuV2woNJkXOhtroFrJiX3ZWjjWXCrRwQ7CQTbtQGjIHKtG9ihAQBbKErpMQJfATyenYBaMYL1 tSuxs7O9iQPkqIPzoHre GkMfIaAqGnEWf0UyCNk7hWnrD2SiASKrVxE0gZZxWUDuBIxiOTQhZLTkymL9bK97LLfakqF7bFPlh3Pe k37ns106nF2btHXyDYR9 LCWyQCRofKFjFNWqDBO8XOLcdSNmJ3acNgKowNYzG6TuKpJgsSQpJ3BbRnQmlRGcU9GjSqLzvMQqFDEh eIS9GZpvb528XAY0OdKw OZ3lQ3Qsz4J6nG4dwHNqGHAigPQiDrTkVAOlrk9edBCoGRipa6NuXHQ9gjG1yXRdxXSgMNMyIS89Rwme g8OsPassDJC0VPBmjoCi d8Cwd9wtWiGxrmNeG3fkV1RyXEWbBHJqFEAtYzEdbnOej6Rdk6SizOYjoWj0k7jkQZHyLMAjvKxaw5vy MIP1HWWrG5C1gBHhb9nn AGjpAFPfoEP5pmD3TUizDPBtrhI3soC0LDyyHTXqeVA6xfQ2DSyvKOIyNtG8rwR5YXdySGLdFJP6RvSm KSUip1QgrekzVuNov9Xz uGRsYKviS22ln679LWVmcoVvS8ozlYWzcbozkHNtpchePGlnfjH9BVRiDJDvMQueMNJsBMHwAuGguDGt ZzEwMzNcaGljaFxmMVxk FpYiQJCxFGqfR7vgLyNgNfWkGISXdSJ8kDFym9ljamM9sQGkIY2wITSwuQUuhzKlp8N4KQD7nYLjnL5l iLOqAAUckUClzlVjoy99 aXNwbSN9VSAhRYCodTDgwX0fDFXbIUUSmF2huZDMjiVagjJaLBWlwNbbvj6FcNWuxz5uuKNiO1OxhDym rMQlEXShPELdxAkjlVQqLGWqYLOdvkkze0TaIXWjeSVvA5LuZC3oLYAeyl73Hsdxpvmsrd [facility] Work Phone: Pathology report Cancer NarrativeSurgical Pathology Case: [id number] Authorizing Provider: Dominick Barbosa MD Collected: 07/13/2024 1405 Ordering Location: [facility] Received: 07/13/2024 1405 Pathologist: Shakir Ford DDS Specimen: NASAL MASS RIGHT BIOPSY [facility] Work Phone: Pathology report final diagnosis Narrative z5okgOMzYWSclPJvSPuzEgynoxXtDMMmyPTmZ5KzjxigBLoxKS3hHO2naNytvBTdyISsWLGlTvCdv7vd e750xAVjt1pvONBKvyjo yVk6jKkqJ52lr9H6VoesL4zkJBFgVAwlMDUiFJoazIDhMWd8IPCovAUircJhLhEvMPRtmYLmbUZ8DYJo RU8wypnjOYbtFZzdWSMx piC8ELEisMUtD4WmGQMiUR6kntegMZA2GCjiCQUzKIK7TsLgVHKlv9Opfig9YoPcoVn9y0cbYLMtZTIz lYpjx9miPTP5IJYknGYo T4welN9rNSJhCN6vqakmv1blDBbwDQxiRPNxqFR2mqI6WAJoaFDvO4HjlR0gHGAgWCIuivXelIbizM7u ZnMyMlxjZjEgTmFzYWwg O7J7oII9WNTvwHvbyHTeZIYfOBHvgF7hm3w4MWWlsqdvlkRis8ilLRLwxl9rYGAyqHYynJNox4CoHF2y QCPkog2qxSWhwZ9pdGAo qXP6gG8yYHcirRkrROEvjJA5w6TkLPR2vz9wPHyvE15lc2bydLZilVN8mMQzOXGbti1cYRYgvTAdprXq YF4mDFBruacqqZ2vcHTlJXDevu7=Ctouimijux [facility] Work Phone: Pathology report gross observation Narrative g6qatIQwUSNxySWNLYN6TTAnGU9peSbfaTw8qYajJOCawcP8qZZfAOaid4jsZKZ6w7wlmuPGTyrdOWSl GW7kJTioWPOfVK3sBnRf DVWjRfEbWSVhuVLctqIuAeTuTHRwcRJrtMP8OUXlBP3wqkdeLXpjZUbqKXFhqvO1ERPbbVIrD1QrPQZv ME1vhidqBAE2DKJOKsnr Wf5zzJSsqRHLCxsdXoYyCaTaNJAqMTCyXKYvq9zviyWSHQzpECQGSRr8INn7RAWbLYQjjCTkn5Q9HPrp h7jfv0XeCDNoMFz2aR3D MyeeUID1TWYXBvenXqugbOeda0TfzEEaGXJzKWayzLBfQEJhBJGxKRyvSmAQDrSwUtEeVUF7GEl1NsSr KYb9VHiuYlRUCXT2SRd4 RlffUWa6EMvgRTbjaXJvZLQzSVNrOUBlZZxliyO7o4gtYQIrdHYiMXU2DBngk6gwQYvaUYZ3FNIyDuLg AGKuPT2OTgEcISD4EtR6 EqxqMeY6BHm9EIVUSiTnHkMsPFAtTxd9YCnbZHs8UCe9VQjRTwSkJXW5WjQkZHJqJOM6GLC9GZglyvnk TPk3SOOlIMbeacIsCQmi HnwgUVcbU70lgGLiNSBLZasapAIuzhhtiKolDpWkaAKjFpQzONcixIYfgEOrZV2LGDu9wiSkAFGoPBKl KlEnSZfpDoEhWIr4UWIt zX9xTm1swXEjkM1nMTwkQxCeIWXhw6z5qBJ5tKPjnPL9eULqjXriTP4xdFNcCL6uHUfoz1DomXZnFD64 rSSkchZperNbAe5lb6Zy FM5hk4KeVszdiEA5LVLeJ0h8KcfuFTJqOC00jJVjvQvpZGPsayZaL1HaZACtl3SviJUqcXAzm9DphSTi LXdoaXRlIHNvZnQgdGlz d4TrTFMtD3RaB2S4nJ3xZWKkCVPtVWN0ETYfVfH0RZGiPTQomZ7oBQJxFVCcyCYrjN9gtoAoeuEtrNRo xWO2VKBbiE5kjK88ciSz haWlqlHxH0Ygn9H7lNZeTLYtovNHJauvACVnPAMvbLFSa5MsHLUEDvZYBv5QFNWafBUEPQX8PG0pITpw REYmD1FzM3SbxfS8x5zfzQpvh1SmxYSwSJ1xtLNpEX5ERRYalpHaTHiicAjmtD6wHVw7Jrguzycgpw [facility] Work Phone: Pathology report relevant history Narrative j2kwsOJwEUOyz3oeXBQgxCIrNiLaKoNyMgSoXlo2PUXvqsS4Ftl9KWEuQDradI3eJCDbUNjpL5btqzIw sJBfHHVcDTw8yB2qlNoctK2wCzCgZjNcTGNafTKboiryGA0lnHfrhRHprIGiaF06k3p6aJLdvATdSJ7= [facility] Work Phone: Resident Review b3kepKUvJWXjaLKeQDgyIdyryyAvPSKqbYKyQ3KmfampIPxbFW6gNG7vyIzlwQGklINjXVHuTjHza9jo w196nKRhr5umIQHXnujl wCm0rWovM51va8T9MxmwG73bxEBlSLK9RMByBCFjtFIlZVRiBLB0FLFexUPsR3cwDKXxAZ1bpqptZOhl ZZgpEOKvqJF4SHQkpTIt Q3DaRCSvPGbtMBYeshc0LmHlUc7erANuvQeqTFawXUPiTGIgOGwmVITbWyLkUBtnFEnah3FzANUtVO2f ykPyoFFrz7Xnf8AfToRz tC5flR3ymfS4GUSrMDEijkone6MwSBlzPGUkiac2opB7hZ6bIHntkHamsLT8qD0ag1l0VZRft7koZP81 TWHTGY5nbFQzN1QftJ0mTQSULI3cgDMdLKYzslKsaDRneP==Xodywlmwxm [facility] Work Phone: [facility] Work Phone: Basophils Auto (Bld) [#/Vol]on 75-46-7869Lmyqxrhsz (Bld) [#/Vol]0.1 10 3/uL0.0-0.1FBlanchard Valley Health System [facility] HospitalBasophils/100 WBC Auto (Bld)on 85-39-8845Roherqjfj/100 WBC (Bld)1.2 %0.2-2.0[facility] HospitalCholesterol in LDL Calc [Mass/Vol]on 89-51-3791Ijztqdylxnv in LDL [Mass/Vol]66.0 mg/dLRiverside Methodist HospitalComment on above:<100 mg/dl PLPBHFL416-797 mg/dl NEAR OR ABOVE FXDPNJM097-103 mg/dl BORDERLINE ITJP345-981 mg/dl HIGH>190 mg/dl VERY HIGHCholesterol in VLDL Calc [Mass/Vol]on 61-72-2936Jgctffudhby in VLDL [Mass/Vol]43.0 mg/dLRiverside Methodist HospitalEosinophils/100 WBC Auto (Bld)on 97-83-7628Zmaudrtvclx/100 WBC (Bld)3.1 % 0.9-7.0[facility] HospitalErythrocyte distribution width Auto (RBC) [Ratio]on 86-01-6439Vxzcabzfcqk distribution width (RBC) [Ratio]13.0 % 11.0-15.0[facility] HospitalEstimated glomerular filtration rate (GFR) non- Americanon 43-84-9188FAR/1.73 sq M.predicted among non-blacks MDRD (S/P/Bld) [Vol rate/Area]mL/min/{1.73_m2}>=60[facility] HospitalGlobulin Calc (S) [Mass/Vol]on 64-81-5888Ulgvktdu (S) [Mass/Vol]4.1 g/dL [facility] HospitalGlucose mean value [Mass/volume] in Blood Estimated from glycated hemoglobinon 97-39-7525Dcchahl glucose Estimated from glycated hemoglobin (Bld) [Mass/Vol]128 mg/dLRiverside Methodist Hospital Hematocrit Auto (Bld) [Volume fraction]on 18-74-5131Xyovmrsmcn (Bld) [Volume fraction]45.3 %42.0-54.0[facility] HospitalHemoglobin [Mass/volume] in Bloodon 59-91-8906Ulfqzfapbe (Bld) [Mass/Vol]14.6 g/dL14.0-18.0 [facility] HospitalLaboratory - Chemistry and Chemistry - challengeon 16-89-1572Houvgge [Mass/Vol]3.6 g/dL3.4-5.0[facility] HospitalALP [Catalytic activity/Vol]86 U/V47-657DpvtnvfkxRiverside Methodist HospitalALT [Catalytic activity/Vol]46 U/R40-30ZhrrbzpozRiverside [facility] Hospital AST [Catalytic activity/Vol]27 U/G59-90OctgxmzfmRiverside [facility] Hospital Bilirubin [Mass/Vol]0.5 mg/dL0.2-1.0[facility] HospitalCalcium [Mass/Vol]9.3 mg/dL8.5-10.1FBlanchard Valley Health System [facility] HospitalChloride [Moles/Vol] 100 mmol/I38-348OfhcxzcocRiverside Methodist HospitalCholesterol [Mass/Vol]147 mg/dL <=200[facility] HospitalCholesterol in HDL [Mass/Vol]38 mg/dLLow 40-60[facility] HospitalComment on above:> or =60 mg/dl - LOW CARDIOVASCULAR RISK<40 mg/dl - HIGH CARDIOVASCULAR RISKCO2 [Moles/Vol]28.7 mmol/L21.0-32.0[facility] HospitalCreatinine [Mass/Vol]0.93 mg/dL 0.70-1.30[facility] HospitalGFR/1.73 sq M.predicted MDRD (S/P/Bld) [Vol rate/Area]mL/min/{1.73_m2}>=60[facility] HospitalGlucose [Mass/Vol]121 mg/oHYybj37-601XhnqatxyxRiverside Methodist HospitalPotassium [Moles/Vol]4.2 mmol/L3.5-5.1FBlanchard Valley Health System Bl[facility]ard Valley HospitalProtein [Mass/Vol] 7.7 g/dL6.4-8.2FCincinnati Children's Hospital Medical Centerodium [Moles/Vol]138 mmol/L 136-145[facility] HospitalTriglyceride [Mass/Vol]215 mg/dLHigh <=150[facility] HospitalTSH Qn3.486 m[IU]/L0.358-3.740[facility] HospitalUrea nitrogen [Mass/Vol]16.0 mg/dL7.0-18.0[facility] HospitalUrea nitrogen/Creatinine [Mass ratio]17.2 mg/mgRiverside Methodist HospitalLaboratory - Hematology and Cell countson 06-99-0730FfH7p (Bld) [Mass fraction]6.1 %4.5-6.2FBlanchard Valley Health System Blanchard Valley HospitalComment on above:ADA RECOMMENDED LIMIT 4.0 - 6.0ADA THERAPEUTIC TARGET < 7.0ACTION SUGGESTED> 7.0Immature granulocytes/100 WBC (Bld)0.3 %0.0-0.5FBlanchard Valley Health System Blanchard Valley HospitalLeukocytes [#/volume] corrected for nucleated erythrocytes in Blood by Automated counon 43-84-2523IXP corrected for nucl RBC Auto (Bld) [#/Vol]7.2 10 3/uL4.0-11.0[facility] HospitalLymphocytes Auto (Bld) [#/Vol]on 28-07-7062Yiotignzxvn (Bld) [#/Vol]2.3 10 3/uL1.2-3.8[facility] HospitalLymphocytes/100 WBC Auto (Bld)on 06-08-2024 Lymphocytes/100 WBC (Bld)32.3 %20.5-60.0[facility] HospitalH Auto (RBC) [Entitic mass]on 07-47-9197QSP (RBC) [Entitic mass]29.0 pg25.9-34.0 [facility] HospitalMCHC Auto (RBC) [Mass/Vol]on 45-62-9430GLQR (RBC) [Mass/Vol]32.2 g/dL29.9-35.2FBlanchard Valley Health System Blanchard Valley HospitalMCV Auto (RBC) [Entitic vol]on 63-35-3566EWQ (RBC) [Entitic vol]89.9 fL80.0-94.0[facility] HospitalMonocytes Auto (Bld) [#/Vol]on 21-42-2324Qmfkwccsl (Bld) [#/Vol]0.4 10 3/uL0.3-0.8[facility] HospitalMonocytes/100 WBC Auto (Bld)on 24-63-5965Imaaiwslw/100 WBC (Bld)6.1 %1.7-12.0[facility] HospitalNeutrophils Auto (Bld) [#/Vol]on 14-26-1210Mnnlpmuddku (Bld) [#/Vol]4.1 10 3/uL1.4-6.5FBlanchard Valley Health System Blanchard Valley HospitalNeutrophils/100 WBC Auto (Bld)on 21-60-2772Tjmmieaplfo/100 WBC (Bld)57.0 %43.0-75.0[facility] HospitalNo Panel Informationon 39-11-7401Khbdjuxwmlp # (Auto)0.2 10 3/uL0.0-0.7FBlanchard Valley Health System Blanchard Valley HospitalImmature Granulocyte # (Auto)0.02 10 3/uL0.00-0.03[facility] HospitalPlatelet mean volume Auto (Bld) [Entitic vol]on 29-29-9994Ommhkukr mean volume (Bld) [Entitic vol]10.0 fL 9.5-13.5FBlanchard Valley Health System Blanchard Valley HospitalPlatelets Auto (Bld) [#/Vol]on 82-63-1499Lyepheycd (Bld) [#/Vol]355 10 3/qX413-365DazuhoisjRiverside Methodist HospitalRBC Auto (Bld) [#/Vol]on 59-77-0670HMT (Bld) [#/Vol]5.04 10 6/uL4.70-6.10 [facility] Administrationerum or plasma albumin/globulin mass ratioon 28-03-1828Lvtulra/Globulin [Mass ratio]0.9 {ratio}[facility] Health Administrationerum or plasma anion gap determinationon 80-31-3379Juwqn gap [Moles/Vol] 13.5 mmol/LFCincinnati Children's Hospital Medical Centererum or plasma total cholesterol/high density lipoprotein (HDL) cholesterol mass maria luz 06-08-2024 Cholesterol.total/Cholesterol in HDL [Mass ratio]3.9 {ratio}[facility] HospitalComment on above:3.3 - 4.4 LOW RISK4.4 - [...] reviewed this case. Diagnostic interpretation performed at [facility] [address] [place] [address]. [place] [id number] Clinical History: Physician Contact Number: [phone] Fixative (A): Saline Fixative (B): Saline Clinical [...] specimen is entirely submitted in 7 cassettes. [facility] B: Received in formalin, labeled with the patient's name and hospital number and B, microdebrider contents , are multiple, irregular segments of blood and soft tissue aggregating to 5.4 x 3.7 x 1.5 cm. Polymerization Supervisor sections are submitted in 8 cassettes [facility] Note: Per the pathologist, the rest of specimen B is submitted in toto in 17 additional cassettes. 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 Please feel free to contact my office by calling [phone] with any questions. Provider Impressions 1. Inverted [...] (Please see procedure below.) SINONASAL ENDOSCOPY (CPT 65669): To better evaluate the patient's symptoms, sinonasal [...] free to contact my office by calling [phone] with any questions. Provider Impressions 1. Inverted [...] day Tylenol TABS Vitals Vital Signs Recorded: 93Ymy0074 07:57AM Height6 ft Svagea973 lb 8 oz BMI Hywjbyvzxv58.81 kg/m2 BSA Calculated2.89 Tobacco Useb) No Falls [...] (Please see procedure below.) SINONASAL ENDOSCOPY (CPT 41769): To better evaluate the patient's symptoms, sinonasal [...] 27 2023 8:22AM EST (Author)NormalUH TouchworksTobacco Screening.on 42-65-5165Semg risk assessmenta) No falls within the last ioqeOH-Ntjnhvqvvfgtzk-Oinhmha [facility] 6352 Work Phone: Tobacco use status CPHSb) UvZU-Nyhlnmfmewbfwa-VgskqqjAurora Hospital 6123 Work Phone: Established Visit (Otolaryngology)on 05-20-2023 Established Visit (Otolaryngology)Diagnoses/Problems Chronic ethmoidal sinusitis (473.2) (J32.2) Chronic maxillary sinusitis (473.0) (J32.0) 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 Pleasefeel free to contact my office by calling [phone] with any questions. Provider Impressions 1. Inverted [...] asked him to reach out to my information and referral director and we discussed some time parameters today. [...] TIMES DAILY NEEDED. Vitals Vital Signs Recorded: 72Jad4272 12:20PM Height6 ft Wspvqy077 lb 3.2 oz BMI Ffvrcypthp50.31 kg/m2 BSA Calculated2.91 Tobacco Useb) No PHQ-2 [...] (Please see procedure below.) SINONASAL ENDOSCOPY (CPT 13259): To better evaluate the patient's symptoms, sinonasal [...] Barbosa MD; May 20 2023 1:59PM EST (Author)Count includes the [facility] TouchworksTobacco Screening.on 74-37-7700Zjpey depression screening eosjjabagvGcLJ-Prizvnzrvwhzbu-Ocnfpfq [facility] 1953 Work Phone: Fall risk assessmenta) No falls within the last year VK-Oszhbuuxlycfyt-PjyezvqN[facility] 4100 Work Phone: Tobacco use status CPHSb) NwHU-Jyyuacvoxoicwk-TleefyjCenterville 4100 Work Phone: No Panel Informationon 05-15-2023 [facility] 4100 Work Phone: Order Reconciliationon 79-77-3422Tsgue Reconciliation Page 1 Discharge Reconciliation Document Reconciliation [...] 15-May-2023, Routine, Assistance Level: (more content not included)...[facility] HospitalPatient Profile - Preop v3on 90-57-0239Zurcoji Profile - Preop o7Ebfclmc Profile - Preop: Initial Info: Patient DemographicsName: WALE GREY Date: 2000 Address: [address] [place] [address] [facility], [facility] Primary Phone [phone] How to be AddressedDylan Spoken Language PreferredEnglish Stated Reason for Admissioninverted papilloma Primary Contact Name and Numbereve Stern [phone] Limitations on Visitors/Phone Callsnone Medications Brought to Hospitalno General Health: Weight in kg185.1 kilogram(s) Weight in qfa811 pound(s) Height in feet5 feet Height in uzfqxf07.97 inch(es) Height in cm182.8 centimeter(s) BMI (kg/m2)55.392 square meter Patient or Family Member Reaction to Anesthesiano previous reaction Blood Avoidance/Restrictionsnone Previous Transfusion Reactionno Health Mgmt: Symptoms/Conditions Managed at Homerespiratory Respiratory Symptoms/Conditionssleep disordered breathing Barriers to Managing Healthnone Relationship/Environ: Lives Withparent(s) Living Arrangementshouse Living Environment Commentsmom Resource/Environmental Concernsnone Anticipated Transition Tosidney Services Anticipated at Transitionnone Tobacco Use: Tobacco [...] Information Last Updated: 15-May-2023 11:21 by Ginny Cohen)[facility] Surgical Pathology Departmenton 64-53-6771FYN Surgical Pathology DepartmentName WALE GREY Pathologist: LUBA [...] reviewed this case. Diagnostic interpretation performed at [address] [facility] [address] Clinical History: Physician Contact Number: [id number] Fixative (A): Saline Fixative (B): Saline Clinical [...] specimen is entirely submitted in 7 cassettes. [facility] B: Received in formalin, labeled with the patient's name and hospital number and B, microdebrider contents , are multiple, irregular segments of blood and soft tissue aggregating to 5.4 x 3.7 x 1.5 cm. Polymerization Supervisor sections are submitted in 8 cassettes [facility] Note: Per the pathologist, the rest of specimen B is submitted in toto in 17 additional cassettes. [facility]/05/19/2023 [facility] Department of Pathology [address] [place], [place] [address]NoChildren's Hospital Colorado, Colorado SpringsComment on above:Performed By: #### [facility] #### [facility] Surgical Pathology Department [address] [place] [address]AGIGB METABOLIC PANELon 49-86-9682Mzuij gap [Moles/Vol]16 mmol/UXtodci18 - 20[facility] CenterComment on above:Performed By: #### BMP #### [facility] [address] [place], [place] [address]Ofuffss [Mass/Vol]9.8 mg/dLNormal8.6 - 10.6[facility] Medical CenterComment on above:Performed By: #### BMP #### [facility] [address] [place], [place] [address]Myhavtjq [Moles/Vol]101 mmol/OSbbbnb06 - 107[facility] CenterComment on above:Performed By: #### BMP #### [facility] [address] [place], [place] [address]Hlvbgdzbcu [Mass/Vol]0.81 mg/dLNormal0.50 - 1.30[facility] CenterComment on above:Performed By: #### BMP #### [facility] [address] [place], [place] [address]hNTA MALE>90Normal>90[facility] Medical CenterComment on above:Result Comment: CALCULATIONS OF ESTIMATED GFR ARE PERFORMED USING THE 2020 CKD-EPI STUDY REFIT EQUATION WITHOUT THE RACE VARIABLE FOR THE IDMS-TRACEABLE CREATININE METHODS. https://jasn.asnjournals.org/content/early//ASN.0472067329Tzrdvsydp By: #### BMP #### [facility] [address] [place], [place] [address]Betqycb [Mass/Vol]81 mg/sYDfkucp86 - 99[facility] CenterComment on above:Performed By: #### BMP #### [place] [address] [place], [place] [address]NIS3 (Bld) [Moles/Vol]27 mmol/BNwfnhl77 - 32[facility] Medical CenterComment on above:Performed By: #### BMP #### [facility] [address] [place], [place] [address]Mziafwuyk [Moles/Vol]4.5 mmol/LNormal3.5 - 5.3[facility] CenterComment on above:Performed By: #### BMP #### [facility] [address] [place], [place] [address]Adjwre [Moles/Vol]139 mmol/HWeeisl020 - 145[facility] CenterComment on above:Performed By: #### BMP #### [facility] [address] [place], [place] [address]Lbuh nitrogen [Mass/Vol]13 mg/dLNormal6 - 23[facility] CenterComment on above:Performed By: #### BMP #### [facility] [address] [place], [place] [address]RRHzp 19-97-6667Ncmqfehknvo distribution width (RBC) [Ratio] 13.0 %Fqyxrv20.5 - 14.5[facility] CenterComment on above:Performed By: #### CBC #### [facility] [address] [place], [place] [address]Kcjwtlvdav (Bld) [Volume fraction]47.2 %Nlvtue13.0 - 52.0[facility] CenterComment on above:Performed By: #### CBC #### [facility] [address] [place], [place] [address]Kctxqikyve (Bld) [Mass/Vol]14.4 g/tQVsbahu10.5 - 17.5[facility] CenterComment on above:Performed By: #### CBC #### [facility] [address] [place], [place] [address]CQDL (RBC) [Mass/Vol]30.5 g/dLLow32.0 - 36.0[facility] CenterComment on above:Performed By: #### CBC #### [facility] [address] [place], [place] [address]CPI (RBC) [Entitic vol]94 oNStwjlf73 - 100[facility] CenterComment on above:Performed By: #### CBC #### [facility] [address] [place], [place] [address]GOPIOWAJW RBC0.0 /100 WBCNormal0.0-0.0[facility] Medical CenterComment on above:Performed By: #### CBC #### [facility] [address] [place], [place] [address]Lslytpwtd (Bld) [#/Vol]400 10*3/kYLspscx266 - 450[facility] CenterComment on above:Performed By: #### CBC #### [facility] [address] [place], [place] [address]EWX2.03 x10E12/LNormal4.50 - 5.90[facility] Comment on above:Performed By: #### CBC #### [facility] [address] [place], [place] [address]ABY (Bld) [#/Vol]9.2 10*3/uLNormal4.4 - 11.3[facility] Medical CenterComment on above:Performed By: #### CBC #### [facility] [address] [place], [place] [address]Vvlsrgehva - Chemistry and Chemistry - challengeon 05-12-2023 Anion gap [Moles/Vol]16 mmol/L10 - 88JG-Rufdfsvuwcqkdl-IbynbdcUniversity Hospitals Parma [facility] 4100 Work Phone: [phone] [Mass/Vol]9.8 mg/dL8.6 - 10.6 GZ-Okkjsryzysdcgl-HqffamrUniversity Hospitals Parma Medical Center 4100 Work Phone: [phone] [Moles/Vol]101 mmol/L98 - 107 GJ-Ighudtobuwsjmg-YnezvqzBlanchard [facility] 4100 Work Phone: [phone] [Moles/Vol]27 mmol/L21 - 32 ZY-Gnzwdmjgwwkdvv-FtxtzovUniversity Hospitals Parma Medical Center 4100 Work Phone: [phone] [Mass/Vol]0.81 mg/dLSee Below [facility] 4100 Work Phone: [phone] on above:Reference Range: 0.50 - 1.30Glucose [Mass/Vol]81 mg/dL74 - 21EI-Zdbfastcamnauo-GdjaggjUniversity Hospitals Parma Medical Center 4100 Work Phone: [phone] [Moles/Vol]4.5 mmol/L3.5 - 5.3 [place] [address] Work Phone: [phone] [Moles/Vol]139 mmol/L136 - 145 [place] [address] Work Phone: [phone] nitrogen [Mass/Vol]13 mg/dL6 - 23 [place] [address] Work Phone: [phone] - Hematology and Cell countson 05-12-2023 Erythrocyte distribution width (RBC) [Ratio]13.0 %See Below [place] [address] Work Phone: [phone] on above:Reference Range: 11.5 - 14.5 Hematocrit (Bld) [Volume fraction]47.2 %See ZmamcQJ-Lobwzjhxsufvsr-DvcylpsPaul Ville [address] Work Phone: [phone] on above:Reference Range: 41.0 - 52.0 Hemoglobin (Bld) [Mass/Vol]14.4 g/dLSee SmcpzKY-Tkymdjyiuhnjaw-MbzqmabPaul Ville [address] Work Phone: [phone] on above:Reference Range: 13.5 - 17.5MCHC (RBC) [Mass/Vol]30.5 g/dLbelow low thresholdSee OchtcOF-Gjaggkblkbwoxw-LhjxincPaul Ville [address] Work Phone: [phone] on above:Reference Range: 32.0 - 36.0MCV (RBC) [Entitic vol]94 fL80 - 840SG-Ttkyxxpbxiflah-BdkiitxPaul [place]ille [address] Work Phone: [phone] (Bld) [#/Vol]400 10*3/uL150 - 450 [place] [address] Work Phone: [phone] (Bld) [#/Vol]5.03 {x10E12/L}See Below ZX-Ymsxunorjyywlb-NrjbzhfAurora Hospital 4100 Work Phone: Comment on above:Reference Range: 4.50 - 5.90WBC (Bld) [#/Vol]9.2 10*3/uL4.4 - 11.1BU-Aprrxlpzmspyho-TojsrtlUniversity Hospitals Parma Medical Center 4100 Work Phone: No Panel Informationon 05-12-2023>90>90 WB-Ywjqpwxioadlpd-DkvcvftAurora Hospital 4100 Work Phone: Comment on above:CALCULATIONS OF ESTIMATED GFR ARE PERFORMED USING THE 2020 CKD-EPI STUDY REFIT EQUATION WITHOUT THERACE VARIABLE FOR THE IDMS-TRACEABLE CREATININE METHODS.https://jasn.asnjournals.org/content/early/ASN.99807447434.0 {/100_WBC}0.0-0.8GM-Msrqvxxvylyphp-SpxpgeuUniversity Hospitals Parma Medical Center 4100 Work Phone: Established Visit (Otolaryngology)on 03-18-2023 Established Visit (Otolaryngology)Diagnoses/Problems 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 Provider Impressions 1. Inverted [...] DAILY UNTIL FINISHED. Vitals Vital Signs Recorded: 62Crf2747 01:56PM Height6 ft Uioelv303 lb 9 oz BMI Cezzvitzsn28.63 kg/m2 BSA Calculated2.91 Tobacco Useb) No PHQ-2 [...] Barbosa MD; Mar 29 2023 3:44PM EST (Author)Count includes the [facility] TouchworksTobacco Screening.on 85-01-1356Fvjha depression screening nhklflvclcSxYD-Ymqhbzjzccahvg-Eadngjqq Work Phone: Fall risk assessmenta) No falls within the last year JD-Pdkdeeuqocomzk-Alfxhrsz Work Phone: Tobacco use status CPHSb) KdSC-Llzzsgizcikuhw-Cphexlwl Work Phone: Established Visit (Otolaryngology)on 01-06-2023 Established Visit (Otolaryngology)Diagnoses/Problems Chronic ethmoidal sinusitis (473.2) (J32.2) Chronic maxillary sinusitis (473.0) (J32.0) Nasal congestion (478.19) (R09.81) 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 Provider Impressions 1. 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 Please feel free to contact my office by calling [phone] with any questions. Provider Impressions 1. Inverted [...] No Reported Medications Vitals Vital Signs Recorded: 97Ptm1596 04:13PM Height6 ft Drtfch222 lb 8 oz BMI Dhngfwkrfj87.89 kg/m2 BSA Calculated2.92 Tobacco Useb) No PHQ-2 [...] (Please see procedure below.) SINONASAL ENDOSCOPY (CPT 78245): To better evaluate the patient's symptoms, sinonasal endoscopy is indicated. After discussion of risks and benefits, and topical decongestion and anesthesia,an endoscope was used to perform (more content not included)...NormalUH TouchworksTobacco Screening.on 54-40-1458Mbsfe depression screening cmnnvagjxgMjPC-Mysxwnsgxtnqjr-Fjbqpylh Work Phone: Fall risk assessmenta) No falls within the last year RB-Awptmcutjjfcep-Srbrturi Work Phone: Tobacco use status CPHSb) TiUF-Afdhhjhyvibfzx-Ynwfrpup Work Phone: MRI LSPINE WO CONon 44-89-6998KSW LSPINE WO CON EXAMINATION: MRI LSPINE WO [...] Electronically authenticated by: ANTONIO WEINSTEIN Date: 2022-07-23 12:04[facility]XR LSPINE 2_3 VIEWSon 68-11-4264JV LSPINE 2_3 VIEWSEXAMINATION: XR LSPINE 2_3 VIEWS [...] Electronically authenticated by: ANTONIO WEINSTEIN Date: 2022-02-18 15:30[facility] HospitalPathology Reporton 69-23-7079Zafdfogmk Report [id number]#[id number]:127[facility]riners HospitalCoding Summary.on 86-57-6429Evfvrx Summary.CODING DATE: 08/31/[address] [facility] STATUS: Home (Routine DC) PAYOR: [facility] DESCRIPTION 5155 Level 5 Airway Endoscopy ADMIT DX: REASON FOR VISIT DX: J32.4 Chronic pansinusitis FINAL DX: PRINCIPAL: J32.4 Chronic pansinusitis SECONDARY: J34.89 Other specified disorders of nose and nasal sinuses J45.909 Unspecified asthma, uncomplicated G47.30 Sleep apnea, unspecified Z99.89 Dependence on other enabling machines and devices PYMT PROC APC STAT DESCRIPTION DOCTOR NAME DATE 99017 5155 J1 Nasal/sinus endoscopy, Yolette Govea MD 08/25/2019 surgical with ethmoidectomy; total (anterior and posterior), including sphenoidotomy, with removal of tissue from the sphenoid sinus RT Right side (used to identify procedures performed on the right side of the body) 78314 5155 J1 Nasal/sinus endoscopy, Yolette Govea MD 08/25/2019 surgical, with maxillary antrostomy; with removal of tissue from maxillary sinus RT Right side (used to identify procedures performed on the right side of the body) 53130 5155 J1 Nasal/sinus endoscopy, Yolette Govea MD 08/25/2019 surgical, with frontal sinus exploration, including removal of tissue from frontal sinus, when performed RT Right side (used to identify procedures performed on the right side of the body) 59420 Anesthesia for Loyd López Jr., DO 08/25/2019 procedures on nose and accessory sinuses; not otherwise specified NOTE: The code number assigned matches the documented diagnosis and / or procedure in the patient's chart. However, the narrative phrase printed from the coding software may appear abbreviated, or result in slightly different terminology. Revised Coded By: Ngoc Campo Revised Date Saved: 08/31/2019 10:48 amNTrinity Health System East CampusMain OR Intraoperative Recordon 01-99-5580Ospg OR Intraoperative RecordIntraOp Document Type FT Summary Primary Physician: Yolette Govea MD Finalized Date/Time: 08/29/19 09:29:47 Pt. Name: WALE GREY D.O.B./Sex: 2000 Male Med Rec #: [id number] Physician: Jeferson HUBBARD, Yolette Ureña Financial #: [id number] Pt. Type: A Room/Bed: [place] [address] Admit/Disch: 08/25/19 09:16:00 - 08/25/19 15:30:00 Institution: [...] Loyd Govea MD, Yolette Kimball RN, Jomar Miller Role Performed Anesthesiologist of Surgeon - Primary Plant Buyer - Primary Record Time In 08/25/19 10:37:00 08/25/19 10:37:00 08/25/19 10:37:00 Time Out 08/25/19 13:03:00 08/25/19 13:03:00 08/25/19 13:03:00 Procedure ANTROSTOMY TURBINECTOMY ANTROSTOMY TURBINECTOMY ANTROSTOMY TURBINECTOMY ETHMOIDECTOMY IM(Right) ETHMOIDECTOMY IM(Right) ETHMOIDECTOMY IM(Right) Comments out of room from 9569-4784. Last Modified By: Patrick RN, Nelly Nguyen RN, Nelly Nguyen RN, Nelly Pearce 08/25/19 13:05:43 08/25/19 13:05:43 08/25/19 13:05:43 Entry 4 Entry 5 Entry 6 Case Attendee Patrick INFANTE, Nelly Aguilar SALES CLERK SUPERVISOR, Enzo Tijerina SALES CLERK SUPERVISOR, Sheba Segovia Role Performed Plant Buyer - Primary Scrub - Primary Scrub - Relief Time In 08/25/19 10:37:00 08/25/19 10:37:00 08/25/19 11:40:00 Time Out 08/25/19 13:03:00 08/25/19 13:03:00 08/25/19 12:14:00 Procedure ANTROSTOMY TURBINECTOMY ANTROSTOMY TURBINECTOMY ANTROSTOMY TURBINECTOMY ETHMOIDECTOMY IM(Right) ETHMOIDECTOMY IM(Right) ETHMOIDECTOMY IM(Right) Comments out for lunch at out for lunch at [phone] Last Modified By: Nelly Nguyen RN, RN, [...] and tissue Entry 1 Skin Integrity Intact, [place], Warm, and Skin Abnormality No Dry [...] 11:42:00 By Rehana INFANTE, Jomar Miller, Breezy SALES CLERK SUPERVISOR, Jeff Marcano CST, Jeff Giraldo CST, Enzo [...] L Patient Status Stable Skin. Condition Intact, [place], Warm, and Dry Airway Maintenance Oxygen in Use? Yes Airway Device Simple Mask Flow Rate 10 L/min Outcomes Met? Yes Last Modified By: Jomar Kimball RN 08/25/19 11:48:09 Post-Care Text: The patient is free from signs and symptoms of injury related to transfer/transport General Comments: handoff report given to pacu nurse. ARELIS Whelanclient business manager Administration FT Pre-Care Text: Verifies allergies, administers [...] AIR Quantity 1 Aid PLUS LOWER BODY [[id number]][F] Fluid/[facility] warming system Setting high/43 degrees Body Site Lower anterior torso Last Modified By: Nelly Nguyen RN 08/25/19 10:05:52 Case Comments Finalized By: Melisa Rg CST Document Signatures Signed By: Nelly Nguyen RN 08/25/19 13:06 Donny INFANTE, Jomar ESPINOZA 08/26/19 11:19 Melisa Rg CST 08/29/19 09:29[facility] HospitalOperative Reporton [id number] ReportDate of Surgery: 08/25/2019 SURGEON: Yolette Govea [...] Yolette Govea Jr., M.D. aek Dictated: 08/25/2019 #[id number] Typed: 08/26/2019 #[id number] cc: Wiliam Carrillo Jr., M.D.[facility]riners HospitalComment on above: Result Comment: Electronically Signed By: Yolette Govea MD\.br\Date and Time Signed: 08/26/19 09:56 ESTInpatient Patient Summaryon 30-84-8417Fzielrjwl [facility] SummaryK[facility] Instructions PERSON INFORMATION Name: ANTWAN GREYLAN Paul PHYSICIANS Admitting Physician: Yolette Govea MD Attending Physician: Yolette Govea MD PCP: ENZO VASQUES DO Discharge Diagnosis: Chronic pansinusitis Comment: PATIENT EDUCATION INFORMATION Instructions: Post Op Patient Instructions - FT (CUSTOM) Medication Leaflets: Follow up: With: Address: When: Yolette Govea [address] [place] [address] [employer] ([employer] In 6 days 08/31/2019 Comments: Call for followup appointment MED[facility] LIST [facility] Recordon 20-68-7691Twpr OR PACU I RecordPACU Phase I Document Type FT Summary Primary Physician: Yolette Govea MD Finalized Date/Time: 08/25/19 13:39:03 Pt. Name: WALE GREY D.O.B./Sex: 2000 Male Med Rec #: [id number] Physician: Yolette Govea MD Financial #: [id number] Pt. Type: A Room/Bed: [place] [address] Admit/Disch: 08/25/19 09:16:27 - Institution: Case Times [...] Signatures Signed By: Jesenia Phan RN 08/25/19 13:39[facility] II Recordon 02-61-4545Egdi OR PACU II RecordPACU Phase II Document Type FT Summary Primary Physician: Yolette Govea MD Finalized Date/Time: 08/25/19 15:29:24 Pt. Name: WALE GREY /Sex: 2000 Male Med Rec #: [id number] Physician: Yolette Govea MD Financial #: [id number] Pt. Type: A Room/Bed: [facility] Admit/Disch: [...] Signatures Signed By: Heavenly Hager RN 08/25/19 15:29No[facility] Preoperative Recordon [id number] OR Preoperative RecordPreOp Document Type FT Summary Primary Physician: Yolette Govea MD Finalized Date/Time: 08/25/19 11:07:39 Pt. Name: ANTWAN GREYLUKASZ Mandel.O.B./Sex: 2000 Male Med Rec #: [id number] Physician: Yolette Govea MD Financial #: [id number] Pt. Type: A Room/Bed: [place] [address] Admit/Disch: 08/25/19 09:16:27 - Institution: Case Times [...] Signatures Signed By: Nelly Nguyen RN 08/25/19 11:07[facility] Reporton 24-04-9517Qnqakjqvg ReportPatient: WALE GREY Paul Age: 18 years Sex: Male : 2000 Associated Diagnoses: None Author: Yolette Govea MD Postoperative Information Procedure: RT IG microdebrider assisted MMA with r/o tissue, total ethmoidectomy, frontal sinusotomy, sphenoidotomy with r/o tissue Preoperative Diagnosis: Chronic pansinusitis (IZN35-VW J32.4, Working, Medical). Postoperative Diagnosis: Chronic pansinusitis (HCZ47-YL J32.4, Discharge, Medical). Performed by: Yolette Govea MD. 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 Specimens Removed: nasal polyp, RT sinus contents, RT sinus sock, RT max sinus tissue, RT sphenoid tissue. Estimated Blood Loss: 100 ml. Medications Complications: None.[facility] HospitalComment on above:Result Comment: Electronically Signed By: Jeferson HUBBARD, Yolette Justin.pastor\Date and Time Signed: 08/25/19 13:21 ESTPatient Education - Texton 61-41-3450Zgeiktn Education - Text [facility] HospitalCoding Summary.on 49-67-9892Urpkxz Summary.CODING DATE: 08/22/2019 FINAL [facility] STATUS: Home (Routine DC) PAYOR: Medical Austin APC DESCRIPTION 5521 Level 1 Imaging without [...] Erica North CphT Date Saved: 08/22/2019 11:03 amNormalDunlap Memorial HospitalAuto Diffon 98-81-8714Tjhdnhzms/100 WBC (Bld)1.4 %Normal0.0-2.0[facility] Comment on above:Order Comment: Order Added by Discern Expert.Performed By: #### [id number], [id number], [id number] #### [facility] [address] [place], [place] [address]Mtbeaoprs/Leukocytes Auto (Bld) [Pure # fraction]0.2 E9/LNormal 0.0-0.2FGeorgetown Behavioral HospitalComment on above:Order Comment: Order Added by Discern Expert.Performed By: #### [id number], [id number], [id number] #### [facility] [address] [place], [place] [address]Dkidzfhinlc/100 WBC (Bld)1.1 %Normal0.0-8.0[facility] Memorial HospitalComment on above:Order Comment: Order Added by Discern Expert.Performed By: #### [id number], 9856853, [id number] #### [facility] [address] [place] [address]Ogwuzqehmmv/Leukocytes Auto (Bld) [Pure # fraction]0.1 E9/L Normal0.0-0.5FGeorgetown Behavioral HospitalComment on above:Order Comment: Order Added by Discern Expert.Performed By: #### [id number], 7301217, [id number] #### [facility] [address] [place] [address] 84[address]Fvdnhbezrza/100 WBC (Bld)21.2 %Dpgrin41.0-50.0[facility] Memorial HospitalComment on above:Order Comment: Order Added by Discern Expert. Performed By: #### 7762300, 3094178, [id number] #### [facility] [address] [place] [address]Alsrfcxgfyg/Leukocytes Auto (Bld) [Pure # fraction]2.3 E9/L Normal1.0-4.0[facility] HospitalComment on above:Order Comment: Order Added by Discern Expert.Performed By: #### [id number], 5363211, [id number] #### [facility] [address] [place] [address] 14231Ijzotiquy/100 WBC (Bld)5.4 %Normal4.0-14.0[facility] HospitalComment on above:Order Comment: Order Added by Discern Expert.Performed By: #### 4652893, 9566463, [id number] #### [facility] [address] [place] [address] 28[address]Ndblfdied/Leukocytes Auto (Bld) [Pure # fraction]0.6 E9/LNormal 0.2-1.0[facility] HospitalComment on above:Order Comment: Order Added by Discern Expert.Performed By: #### [id number], 4122506, [id number] #### [facility] [address] [place] [address] 059[address]Lswswzgqkec/100 WBC (Bld)70.9 %Asvryp35.0-75.0[facility] HospitalComment on above:Order Comment: Order Added by Discern Expert. Performed By: #### 1976100, 7765119, [id number] #### [facility] [address] [place], [place] [address]Qdzezlqwgmn/Leukocytes Auto (Bld) [Pure # fraction]7.6 E9/LHigh 2.0-7.5FGeorgetown Behavioral HospitalComment on above:Order Comment: Order Added by Discern Expert.Performed By: #### 9832690, 6656203, 33756180 #### [facility] [address] [place], [place] [address]MTMen 67-00-5229Yume nitrogen [Mass/Vol]12 mg/dLNormal5-21 [facility] HospitalComment on above:Performed By: #### 4911655, 5591087, 89834411, 1729254, 0022460 #### [facility] [address] [place] [address]AOX w/ Auto Diffon 49-66-1801Btlzyqbglnw distribution width (RBC) [Ratio]14.1 %Aueouh82.9-14.2FGeorgetown Behavioral HospitalComment on above: Performed By: #### 9443288, 2357660, [id number] #### [facility] [address] [place] [address] 99291Ibydjrnxjj (Bld) [Volume fraction]48.4 %Xgcomo72.7-49.0[facility] HospitalComment on above:Performed By: #### 2988330, 3146285, 29457177 #### [facility] [address] [place] [address] 226[address]Hvpgfpjovv (Bld) [Mass/Vol]16.2 g/fHNhfqhj76.5-17.5FGeorgetown Behavioral HospitalComment on above:Performed By: #### 0989317, 9963146, 76546063 #### [facility] [address] [place] [address] [place] [address]YEA (RBC) [Entitic mass]29.0 dzLbbgxn93.0-34.0[facility] HospitalComment on above:Performed By: #### 2227120, 6859698, 24898694 #### [facility] [address] [place] [address]65[address]TAHM (RBC) [Mass/Vol]33.6 g/iJChvlsc42.4-36.0[facility] HospitalComment on above:Performed By: #### 3972349, 9070106, 46550106 #### [facility] [address] [place] [address] 196[address]EJK (RBC) [Entitic vol]86.5 wNGilqfv43.0-100.0[facility] HospitalComment on above:Performed By: #### 0941137, 8431890, 27483769 #### [facility] [address] [place] [address]Pahlkfih mean volume (Bld) [Entitic vol]8.7 fLNormal6.4-10.8 [facility] HospitalComment on above:Performed By: #### 6548470, 7443271, 82988418 #### [facility] [address] [place] [address] 27279Lllcshlml (Bld) [#/Vol]351.0 E9/JOinlot947.0-500.0[facility] HospitalComment on above:Performed By: #### 0145821, 0045953, 44836124 #### [facility] [address] [place] [address] 20396UDD (Bld) [#/Vol]5.6 E12/LNormal4.3-5.9[facility] HospitalComment on above:Performed By: #### 5146063, 5063476, 37340892 #### [facility] [address] [place] [place] [address]69[address]DEG corrected for nucl RBC Auto (Bld) [#/Vol]10.7 E9/LNormal 4.0-11.0[facility] HospitalComment on above:Performed By: #### 1919835, 0581578, 79853442 #### [facility] [address] [place], [place] [address]Humcfampujwt 16-11-6061Dzzsujsjhm [Mass/Vol]0.8 mg/dLNormal 0.5-1.3FGeorgetown Behavioral HospitalComment on above:Performed By: #### 9416664, 9308780, 26485845, 7772397, 4276820 #### [facility] [address] [place], [place] [address]Ndrfldoas 18-87-1206Belpatk [Mass/Vol]97 mg/uBLtaqbo86-066 [facility] HospitalComment on above:Performed By: #### 0659794, 3690295, 91655658, 7035025, 0428335 #### [facility] [address] [place], [place] [address]Ldmohtq 70-17-4743Mujur gap [Moles/Vol]14 mmol/LNormal6-16 [facility] HospitalComment on above:Performed By: #### 2011998, 9313182, 14000037, 7276058, 2129181 ####[facility] [address] [place], [place] [address]Lanpatpn [Moles/Vol]104 mmol/AHqbhmc440-794PqwrrbDunlap Memorial HospitalComment on above:Performed By: #### 8367587, 8108840, 60760328, 6045993, 5996480 ####[facility] [address] [place], [place] [address]DH2 [Moles/Vol]25 mmol/ACzazyb02-97EdklrdDunlap Memorial HospitalComment on above:Performed By: #### 5166260, 1068776, 78237141, 1228534, 5016007 ####[facility] [address] [place], [place] [address]Uewhrijjy [Moles/Vol]3.5 mmol/LNormal3.5-5.3FGeorgetown Behavioral HospitalComment on above:Performed By: #### 7553317, 6916425, 95926377, 3370761, 1770129 ####[facility] [address] [place], [place] [address]Navzmg [Moles/Vol]139 mmol/BGuoymr272-492SdsseoDunlap Memorial HospitalComment on above:Performed By: #### 2921632, 1003015, 16565152, 8123808, 0011342 ####[facility] [address] [place], [place] [address]HI & PTTon 58-16-1631qBFJ Coag (PPP) [Time]35.7 second(s) Uononc75.1-36.5FGeorgetown Behavioral HospitalComment on above:Result Comment: Heparin therapeutic range (represented by Anti-Factor Xa activity of 0.2 - 0.4 U/mL) corresponds to PTT of 56.6 - 109.0 sec.Performed By: #### 9247797, 9195206, 83109988 #### [facility] [address] [place], [place] [address]PVB Coag (PPP) [Relative time]1.0 {INR}[facility] HospitalComment on above:Result Comment: INR results are specifically intended to assess patients stabilized on long-term Anticoagulation therapy suggested INR?s ?Less Intensive Anticoagulation? 2.0 ? 3.0 Conventional Range 3.0 ? 4.5Performed By: #### 0349976, 0146694, 67054309 #### [facility] [address] [place], [place] [address]QH Coag (PPP) [Time]11.6 second(s)Sdpybi35.2-12.9[facility] HospitalComment on above:Performed By: #### 7683250, 9976201, 21198118 #### [facility] [address] [place], [place] [address]AL Chest 2 Viewson 50-86-0118TX Chest 2 ViewsExam Date/Time: 08/19/2019 16:39 EST [...] Germain Bryan M.D. Transcribed by: JAZMYNE Technologist: LuanaDunlap Memorial HospitaleGFRon 08-30-1013ZRT/1.73 sq M predicted among blacks MDRD (S/P/Bld) [Vol rate/Area] mL/min/{1.73_m2}Normal>=59[facility] HospitalComment on above:Order Comment: Order added by Discern Expert.Result Comment: eGFR is race adjusted. AA=.Performed By: #### 8223972, 6862112, 55267780, 3132167, 2089665 #### [facility] [address] [place], [place] [address]DFN/1.73 sq M predicted among non-blacks MDRD (S/P/Bld) [Vol rate/Area]mL/min/{1.73_m2}Normal>=59[facility] HospitalComment on above: Order Comment: Order added by Discern Expert.Result Comment: Chronic kidney disease could be indicated at eGFR's of less than 60 mL/min/1.73m2. Kidney failure is indicated at less than 15 mL/min/1.73m2.Performed By: #### 6703905, 0375634, 10266616, 8433106, 8024118 #### [facility] [address] [place], [place] [address]Gmvaen Summary.on 03-92-7589Uctkdv Summary.CODING DATE: 08/08/[address] [facility] STATUS: Home (Routine DC) PAYOR: Medical [facility] APC DESCRIPTION 5522 Level 2 Imaging without [...] Erica North CphT Date Saved: 08/08/2019 12:24 [facility] Maxillofacial w/o Contraston 78-36-4805JU Maxillofacial w/o ContrastExam Date/Time: 08/05/2019 13:49 EDT [...] Germain Bryan M.D. Transcribed by: JAZMYNE Technologist: [facility] Vital Signs Date TimeVital SignValuePerforming RukbcouzrGqjyepyr19-51-5204 15:16-0400Body jdkoiw889.9 cmDominick Barbosa MD Work Phone: [facility]10-08-2025 15:16-0400 Body mass index (BMI) [Ratio]55.86 kg/m9KvspnypDominick Barbosa MD Work Phone: [facility]10-08-2025 15:16-0400 Body nuejmt221.84 kgDominick Barbosa MD Work Phone: [facility]08-19-2025 15:21-0400 Body udsvpm803.25 cmBenjamin Ball DO Work Phone: [facility]08-19-2025 15:21-0400 Body mass index (BMI) [Ratio]56.5 kg/z6Krjtvpyp Ball DO Work Phone: [phone]57[facility]08-19-2025 15:21-0400 Body .9 kgBenjamin Ball DO Work Phone: [phone] [place], [place] [address]308-19-2025 15:21-0400 Diastolic blood dcrnrqfo04 mm[Hg]Enzo Ball DO Work Phone: [phone]08-19-2025 15:21-0400 Heart mawg129 /minBenjamin Ball DO Work Phone: [phone]08-19-2025 15:21-0400 Respiratory rate12 /minBenjamin Ball DO Work Phone: [phone]08-19-2025 15:21-0400 Systolic blood zxslauub415 mm[Hg]Enzo Ball DO Work Phone: [phone]04-14-2025 16:14-0400 Body bpitaq673.25 cmR[facility]ide [facility] Hospital04-14-2025 16:14-0400Body mass index (BMI) [Ratio]56.4 kg/b7UpozerzskRiverside Methodist Hospital04-14-2025 16:14-0400Body rqwbag557.44 kgRiverside Methodist Hospital04-14-2025 16:14-0400Diastolic blood mm[Hg][facility] 01-16-2025 16:140400Heart xlfx371 /[facility] 01-16-2025 16:140400Respiratory rate12 /[facility] 01-16-2025 16:144710OkX5% (BldA) [Mass fraction]97 %[facility]04-14-2025 16:140400Systolic blood nagcvblz122 mm[Hg][facility]04-09-2025 15:29-0400Body hzeghk245.9 cmDominick Barbosa MD Work Phone: [phone] [place], [place] 9791304-09-2025 15:29-0400 Body mass index (BMI) [Ratio]55.95 kg/q1AmonzufDominick Barbosa MD Work Phone: [phone] [place], [place] 9791304-09-2025 15:29-0400 Body sdwaas462.11 kgDominick Barbosa MD Work Phone: [phone] [place], [place] 9791310-09-2024 13:18-0400 Body qhbbme347.9 cmDominick Barbosa MD Work Phone: [phone]10-09-2024 13:18-0400 Body mass index (BMI) [Ratio]56.42 kg/u0CxmdxkiDominick Barbosa MD Work Phone: [phone] [place], [place] 9791310-09-2024 13:18-0400 Body .7 kgDominick Barbosa MD Work Phone: [phone] [place], [place] 9791308-30-2024 14:05-0400 Body ximccy072.25 cmR[facility]08-30-2024 14:05-0400Body mass index (BMI) [Ratio]57.3 kg/j8HofxiekomRiverside Methodist Hospital08-30-2024 14:05-0400Body .5 kgR[facility]ide [facility] Hospital08-30-2024 14:05-0400Diastolic blood jcoszgnu05 mm[Hg][facility] 06-03-2024 14:05-0400Heart rate83 /[facility] 06-03-2024 14:05-0400Respiratory rate12 /minRiverside Methodist Hospital 06-03-2024 14:05-0400Systolic blood cjoroxcc918 mm[Hg][facility]06-05-2024 15:02-0400Body cvxrra714.9 cmDominick Barbosa MD Work Phone: [facility]06-05-2024 15:02-0400 Body mass index (BMI) [Ratio]56.32 kg/m5EdwhrfmDominick Barbosa MD Work Phone: [facility]06-05-2024 15:02-0400 Body fciasp124.38 kgDominick Barbosa MD Work Phone: [facility]01-02-2024 12:15-0500 Body iduajg870.25 cmBenjamin Ball Other [employer] Other 01-02-2024 12:15-0500Body mass index (BMI) [Ratio] 54.62 kg/d4Jdbsdimi Ball Other [employer] Other 01-02-2024 12:15-0500Body .44 kgBenjamin Ball Other [employer] Other 11-29-2023 15:29-0500Body rrlfte298.9 Diane Barbosa MD Work Phone: [facility]11-29-2023 15:29-0500 Body mass index (BMI) [Ratio]54.37 kg/c2GkwxucaDominick Barbosa MD Work Phone: [facility]11-29-2023 15:29-0500 Body vonetg404.85 Brown Barbosa MD Work Phone: [facility]08-23-2023 07:57-0400 Body .88 cmBenjamin E Ball Work Phone: [phone]-NssipppxwnlvbiN[facility] 4100 Work Phone: [phone] 07:57-0400Body mass index (BMI) [Ratio] 55.81 kg/t2Dpsltewz E Ball Work Phone: [phone]-WipesuujsejxfwKPC [facility] 4100 Work Phone: [phone] 07:57-0400Body surface area Derived from formula2.89 q9Ptapvfom E Ball Work Phone: [phone]-CavjdkuwsfpqcrKPC [facility] 4100 Work Phone: [phone] 07:57-0400Body eznxzc414.66 kgBenjamin E Ball Work Phone: [phone]) [phone]-HxhpeejynsgsnwK[facility] 4[address] Work Phone: [phone] 07:57-02612 1Benjamin E Ball Work Phone: [phone]-AnwaprbtqiurubKPC [facility] 4[address] Work Phone: [phone] on above:LfedOdmuy43-18-1721 12:20-0400Body jnenth238.88 cmBenjamin E Ball Work Phone: [phone]-QiaeupkyxxdrkmKPC [facility] Work Phone: [phone] 12:20-0400Body mass index (BMI) [Ratio] 56.31 kg/f0Wmyhpaqz E Ball Work Phone: [phone]-GusqshvufcfnmtKPC [facility] 4[address] Work Phone: [phone] 12:20-0400Body surface area Derived from formula2.91 w4Dxhjizqw E Ball Work Phone: [phone]-KiusvojmdgliswKPC [facility] 4[address] Work Phone: [phone] 12:20-0400Body ibwezs590.33 kgBenjamin E Ball Work Phone: [phone]-RdgiuaszwvodlnAurora Hospital 4100 Work Phone: [phone] 11:49-0400Body ppobirxnjoa64.8 [degF] Dominick Barbosa MD Work Phone: [phone] [place], [place] 3914508-11-2023 11:49-0400 Diastolic blood gwnqurmv11 mm[Hg]Dominick Barbosa MD Work Phone: [phone] [place], [place] 3914508-11-2023 11:49-0400 Heart rate82 /Franki Barbosa MD Work Phone: [phone] [place], [place] 3914508-11-2023 11:49-0400 Respiratory rate16 /Franki Barbosa MD Work Phone: [phone] [place], [place] 3914508-11-2023 11:49-0400 Systolic blood qzisnamt873 mm[Hg]Dominick Barbosa MD Work Phone: [phone] [place], [place] 3914508-11-2023 11:18-0400 Body byjjsv100.8 cmDominick Barbosa MD Work Phone: [phone] [place], [place] 3914508-11-2023 11:18-0400 Body mass index (BMI) [Ratio]55.39 kg/o4XyyllgrDominick Barbosa MD Work Phone: [phone])[address] [place], [place] 3914508-11-2023 11:18-0400 Body dowrbe796.1 kgDominick Barbosa MD Work Phone: [phone]06-14-2023 13:56-0400 Body cghhyb397.88 cmBenjamin E Ball Work Phone: mg991-7698DG-Cwnoiimnkfkjxu-[place] Work Phone: [phone]) 221-718106-14-2023 13:56-0400Body mass index (BMI) [Ratio] 56.63 kg/g8Axnutixl E Ball Work Phone: mg775-7444TC-Acrfpsvdsfnldh-[place] Work Phone: [phone]) 595-732306-14-2023 13:56-0400Body surface area Derived from formula2.91 r9Msubqygc E Ball Work Phone: [phone]-Yubcrlaovpkkvy-[place] Work Phone: [phone]) [phone] 13:56-0400Body qxliya130.41 kgBenjamin E Ball Work Phone: [phone]-Eezrrdzexnrxfk-[place] Work Phone: 1(943) 471-519506-14-2023 13:56-92603 1Benjamin E [employer] Work Phone: [phone]-Zppmqvjxnmbcqh-[place] Work Phone: Comment on above:NzezPurqg35-14-8509 16:13-0500Body rjdhoc209.88 cmBenjamin E [employer] Work Phone: [phone]-Rvediugufvvemr-[employer] Work Phone: 1([phone]) 647-276802-08-2023 16:13-0500Body mass index (BMI) [Ratio] 56.89 kg/p3Uubwnejj E Ball Work Phone: [phone]-Jrwfzzekgxftes-[place] Work Phone: [phone] 273-193002-08-2023 16:13-0500Body surface area Derived from formula2.92 r6Zwzbfifc E [employer] Work Phone: [phone]-Npdkvzthahwbfl-[place] Work Phone: [phone] 162-485402-08-2023 16:13-0500Body xqfvil161.29 kgBenjamin E Ball Work Phone: [phone]-Wydnkxwiqgcovg-[place] Work Phone: [phone]) [phone] 16:13-13922 1Benjamin E [employer] Work Phone: TS-Azbkkefzcfmofp-[place] Work Phone: Comment on above:[employer]Scale Encounters Encounter DateEncounter TypeCare ProviderFacilityStart: 07-12-2025 End: 10-80-1178Kxhpbh outpatient visit 15 minutesDominick Barbosa MD Work Phone: uh [facility] CenterComment on above:Chronic sphenoidal sinusitis (Primary Dx); Nasal congestionStart: 07-12-2025 End: 69-83-1716cdqcdrbfxsBGCLMBXColer-[facility] Start: 07-10-2025 End: 08-25-6137udwewugehmPqolbdt Vytautas Giedraitis MDFacility:PM Debora Start: 05-23-2025 End: 40-76-1245kmiuwgutguTfdattxi Ball DO Work Phone: [facility] Work Phone: Start: 05-23-2025 End: 77-77-7037Qrgwojh [facility] procedureWest[facility] Work Phone: Start: 05-23-2025 End: 41-27-2707Nntrfxw encounter statusMemorial Health System [facility] Memorial Hospitaltart: 02-13-2025 End: 06-44-0678Tznbny outpatient visit 15 minutesDominick Barbosa MD Work Phone: uh [facility] CenterComment on above:Benign neoplasm of sphenoid sinus (Primary Dx); Chronic sphenoidal sinusitisStart: 02-13-2025 End: 17-33-6097foclqrwjnlUGACEDIColer-[facility] Start: 02-13-2025 End: 34-56-4801csgescystdYpvcgyu Vytautas Giedrasaeed MDFacility:PM [place] Start: 01-16-2025 End: 09-48-7101kbzgmazzozUcxebzaxlKettering Health [facility] Work Phone: Start: 01-16-2025 End: 65-33-9653Mlvjrqp encounter procedureReading [facility] Work Phone: Start: 01-16-2025 End: 82-42-9459iqbhcwlmrrWljlyaq Vytautas Giedraitis MDFacility:PM Debora Start: 01-11-2025 End: 25-14-9863Tewjsg outpatient visit 15 minutesDominick Barbosa MD Work Phone: uh [facility] CenterComment on above:Benign neoplasm of sphenoid sinus (Primary Dx); Chronic sphenoidal sinusitis; Chronic maxillary sinusitisStart: 01-11-2025 End: 04-73-7263bawkzaprqtXAQQRKJ D [facility] Start: 01-02-2025 End: 84-51-2906mwtxirwojoDglogrf Vytautas Giedraitis MDFacility:PM Debora Start: 09-12-2024 End: 46-02-3607fiakxbvcveThqetbo Vytautas Giedraitis MDFacility:PM Debora Start: 08-08-2024 End: 12-13-1075yqokdrpeesXdwtsivunMorrow County Hospital Work Phone: Start: 08-08-2024 End: 94-31-4831Yjhwoeh encounter procedureAt[facility] Physician GroupC[facility] Work Phone: Start: 07-13-2024 End: 90-03-3783Bqtoab outpatient visit 15 minutesDominick Barbosa MD Work Phone: uh [facility] CenterComment on above:Post-nasal drainage (Primary Dx); Chronic maxillary sinusitis; Nasal congestionStart: [id number]-patient / Non-visitAtrium Health Pine[facility] Hospital Physician GroupTrios Health Professional [facility] Work Phone: Start: [id number] encounter statusVeterans Health Administrationtart: 06-03-2024 End: 74-67-3123ibptihciehGuacouzarMorrow County Hospital Work Phone: Start: 06-03-2024 End: 77-78-3695Zvgqtddsd for general adult medical examination without abnormal findingsVeterans Health Administrationtart: 06-03-2024 End: 38-75-7011Fgschmu encounter procedureAtrium Health Pine[facility] Rehabilitation Hospital Physician [facility] Work Phone: start: 03-09-2024 End: 04-52-9959Fegaoo outpatient visit 15 minutesDominick Barbosa MD Work Phone: uh [facility] CenterComment on above:Chronic ethmoidal sinusitis (Primary Dx); Chronic maxillary sinusitisStart: 10-06-2023 End: 92-90-3722vljpcwnqgoVocdaoby Ball Other [facility] Runner Other Start: 13-14-1318Cbyaoa outpatient visit 15 minutes [facility] ClinicStart: 09-02-2023 End: 70-49-8905Rdzbln outpatient visit 15 minutesDominick Barbosa MD Work Phone: uh [facility] CenterComment on above:Chronic ethmoidal sinusitis (Primary Dx); Other chronic sinusitis; Chronic sphenoidal sinusitisStart: 02-63-8236Vduev UpdateEnzo Vasques Work Phone: [phone]-NnmdxbvzjexypaNelson [facility] 4103 Work Phone: Start: 54-39-3560itbpytvzmtLx. Dominick Barbosa Facility:9479Start: 59-62-0811Awqjfi follow up visit related to original px Enzo Vasques Work Phone: [phone]-TfhbadarezwrimBlanchard Valley Health [facility] 4[facility] Work Phone: Start: 22-19-4698sroknfsvfyIy. Enzo Vasques Facility:9479Start: 05-15-2023 End: 41-60-8132nvyxxxckrsHf. Dominick BarbosaFacility:[facility]ITALtart: 27-08-0502ZXEXCHgycntan E Ball Work Phone: [phone]-GrzqlfvbajmisbNelson County Health [facility] 4100 Work Phone: Start: 05-15-2023 End: 09-37-9744Xnmdwcsjzl hospital visit by physicianDominick Barbosa MD Work Phone: cm SURG AIB LEGACYComment on above:Chronic ethmoidal sinusitis; Benign neoplasm of middle ear, nasal cavity and accessory sinuses; Chronic sinusitis, unspecifiedStart: 28-13-2246xhttrlxkduOk. Dominick BarbosaFacility:[facility] HOSPITALtart: 98-11-5734Iphrcorfp for preprocedural laboratory examinationDr. Dominick BarbosaFort Loudoun [facility], [place], operated by [facility] Healthtart: 64-12-2746Msawkm outpatient visit 15 minutesBenjamin E Ball Work Phone: [phone]-JifjnukphbpricAurora Hospital 4100 Work Phone: Start: 09-53-4386Spefurd encounter procedureBenjamin E Ball Work Phone: [phone]-NxjmgoybkcjnrvTracy Medical Center Work Phone: Start: 01-18-8870brltmcphqmKv. Dominick Barbosa Facility:9479Start: 01-07-2023 End: 98-39-6125icyqthrfqyIcrtaodd Ball Other noTextbroker Runner Other Start: 93-83-2879Jfmcqkizh encounterBenjamin BallMIGUELG [facility] ClinicStart: 12-18-4985Pmfzii outpatient visit 25 minutesBenjamin E Ball Work Phone: [phone]-AwulfmemysylehBlanchard Valley Health [facility] 4102 Work Phone: Start: 48-56-4252chdfjhnqefJn. Dominick Barbosa Facility:9448Start: 01-05-2023 End: 42-46-7559bqytlyuooyHelouwva Ball Other noHeadMix Other Start: 64-81-5382Exxrix outpatient visit 15 minutes Enzo BallFPG Ball Medical ClinicStart: 11-19-2022 End: 21-30-8217ktnnhpjagiDL DOCTOR MISCFacility:N8Ecrzu: 68-42-7849Cheugj outpatient visit 25 minutesBenjamin E Ball Work Phone: [phone]-ZgajinwvupbxnoAurora Hospital 4100 Work Phone: Start: 49-23-7806Oyydgxt encounter procedureBeraheem Vasques Work Phone: [phone]-Swxcotrpxanikh-[place] Work Phone: Start: 19-85-4567mppoprawvnBk. Dominick Barbosa Facility:9479Start: 07-29-2022 End: 66-28-3302zosersgwbuYN ENZO BALLFacility:R9Rbiii: 07-22-2022 End: 79-65-3964dprmkxibmtLS ENZO BALLFacility:S3Zauji: 91-99-1002Fitc child visitEnzo Vasques Other [place] Runner Other Start: 03-20-2022 End: 05-36-9629ioqcgsfdqhAT ENZO BALLFacility:G4Lmhhc: 02-18-2022 End: 58-68-7544auskauqhkvDX ENZO VASQUESFacility:H1 Procedures DateProcedureProcedure DetailPerforming ClinicianStart: 90-83-1749Qfyqh iv surg pathology gross&microscopic examDominick Barbosa MD Work Phone: Start: 85-39-6682Bnfwzq-up visitFollow-upDOMINICK BARBOSAStart: 46-78-1112Uuwss iv surg pathology gross&microscopic examDominick Barbosa MD Work Phone: Start: 10-65-9229XPRZIKJV PATHOLOGY RESULTSDominick Barbosa MD Work Phone: Start: 85-81-5321Fiwyzqyrbc consultationStart: 59-21-9676Wdtebbvbem consultationStart: 21-72-5225Edrgxdp examination of patient Enzo Vasques Other Start: 69-06-0657Slvwsnb and physical examination, administrativeEnzo Vasques Other Nasal sinus procedureBeraheem Vasques Work Phone: Plan of Treatment DateCare ActivityDetailAuthorStart: 45-75-4830Itshtd Vaccines (1 of 2)Zoster Vaccines (1 of 2)[facility]: 01-17-2026 End: 63-02-0772Embbrtz encounter cvcudkgnl20/15/2026 3:15 PM EDT Office Visit [facility] [address] [place] [address] Dominick Barbosa MD [address] [place] [address] [facility]art: 12-38-2338GGLIX-19 Vaccine ( season)COVID-19 Vaccine ( season)[facility]: 15-83-8865Neacnkzkd vaccination Influenza Vaccine (Season Ended)[facility]: 34-68-9379Ziouicwwf vaccinationInfluenza Vaccine (#1)[facility]: 01-11-2025 End: 71-90-0555Caejwfn encounter blkzcpvdi67/09/2025 3:00 PM EDT Office Visit [facility] [address] [place] [address] Dominick Barbosa MD [address] [place] [address] [facility]: 07-13-2024 End: 09-72-2343Sbczorl encounter fgkzlzihy83/09/2024 1:15 PM EDT Office Visit [facility] [address] [place] [address] Dominick Barbosa MD [address] [place] [address] [facility]: 70-90-3628XKMXO-19 Vaccine ( season)COVID-19 Vaccine ( season)[facility]: 80-14-2173Ofnwcvduu vaccination [facility]: 18-35-3966Vhmaazul mellitus screening Diabetes ScreeningTrumbull Memorial Hospital: 03-09-2024 End: 83-01-7866Shhdwgc encounter whshascgs27/05/2024 2:45 PM EDT Office Visit [facility] [address] [place] [phone] Dominick Barbosa MD [address] [place] [address] [facility]: 03-21-7434HSR, Provider: Dominick Barbosa, Status: Pen, Time: 2:45 PMFUV, Provider: Dominick Barbosa, Status: Pen, Time: 2:45 XWHU-Kxetvfceiixisu-WfdkfyqAurora Hospital 4100 Work Phone: Start: 09-02-2023 End: 00-24-4562Qrpvymz encounter gvtwiagon99/29/2023 2:45 PM EST Office Visit [facility] [address] [place] [phone] Dominick Barbosa MD [address] [place] [address] [facility]: 50-53-3357QVWHE-19 Vaccine ( season)COVID-19 Vaccine ( season)[facility]: 67-73-5590Klppzdcrw vaccination Influenza Vaccine (#1)[facility]: 68-35-3354DUG, Provider: Dominick Barbosa, Status: Pen, Time: 10:30 AMPOV, Provider: Dominick Barbosa, Status: Pen, Time: 10:30 LWFZ-Yplfngvnwtkhxh-Ngkiwuoa Work Phone: Start: 63-02-6693ZBF, Provider: Dominick Barbosa, Status: Pen, Time: 12:30 PMPOV, Provider: Dominick Barbosa, Status: Pen, Time: 12:30 HCMK-Yjjttuqracznoe-Kmquzilw Work Phone: Start: 33-58-1537TCiX/Tdap/Td Vaccines (7 - Td or Tdap)DTaP/Tdap/Td Vaccines (7 - Td or Tdap)[facility] Start: 59-97-8561YJqA/Tdap/Td Vaccines (1 - Tdap)DTaP/Tdap/Td Vaccines (1 - Tdap)[facility]: 29-51-9671GEQSI-19 Vaccine (2 - Booster for Isaias series)COVID-19 Vaccine (2 - Booster for Isaias series) [facility]: 21-99-3691Cygrkwawp C screeningHepatitis C ScreeningUnCleveland Clinic Fairview Hospital: 39-25-3781OKN Vaccines (1 - Male 3-dose series)HPV Vaccines (1 - Male 3-dose series)[facility]: 88-27-9308XWS Vaccines (1 - Male 2-dose series)HPV Vaccines (1 - Male 2-dose series)[facility]: 44-17-3697Atbhjwemv vaccinationVaricella Vaccines (2 of 2 - 2-dose childhood series)[facility]: 90-75-2268OQB Vaccines (1 of 1 - Standard series) MMR Vaccines (1 of 1 - Standard series)[facility]: 35-18-4642Ooondhyix vaccinationVaricella Vaccines (1 of 2 - 2-dose childhood series)[facility]: 60-67-1491BMNJL-19 Vaccine (#1) COVID-19 Vaccine (#1)[facility]: 39-44-0807Nztbwwocm B Vaccines (1 of 3 - 3-dose series)Hepatitis B Vaccines (1 of 3 - 3-dose series)[facility]: 48-62-6462CEG screeningHIV ScreeningUnCleveland Clinic [facility]: 12-98-1436Qjczn panelLipid PanelUnCleveland Clinic Children's Hospital for RehabilitationStart: 32-01-0467Gnjkre Adult Physical Yearly Adult PhysicalUnCleveland Clinic Children's Hospital for RehabilitationComprehensive metabolic 1999 panel - Serum or PlasmaRiverside Methodist HospitalComprehenve metabolic 1999 panel - Serum or [facility] Medical CenterPatient EducationLow back pain in adultsSt. Charles Hospital Work Phone: [facility] Immunizations Immunization DateImmunizationNotesCare ZhytdaaxBmmlxfsd89-04-9669ybfczrktd virus vaccineDominick Barbosa MD Work Phone: [facility] Work Phone: Payers DatePayer CategoryPayerPolicy [id number] [facility] Care [facility] Member Subscriber Plan / Payer (Effective 2022-Present) Name: Wale Grey Member ID: [id number] Relation to Subscriber: Child Name: CHALINO LAWSON Subscriber ID: [id number] Date of : 1968 (Home) Address: [address] [place] [address] [place] [address] Payer ID:[id number] (NAIC) Type: Not on file Address: [facility] [address] [place] [id number]884Sxpejlj [id number] [id number] .1.951815.3.57[id number] .1.535356.3.57[id number] .1.358339.3.57[id number] 2.16.840.1.900779.3.57[id number] 2.16.840.1.096748.3.57[id number] 2.16.840.1.918472.3.57[id number] 2.16.840.1.672114.3.57[id number] 2.16.840.1.532457.3.57[id number] 2.16.840.1.907609.3.57[id number] 2.16.840.1.582710.3.57[id number] 2.16.840.1.231033.3.57[id number] 2.16.840.1.990859.3.57[id number] 2.16.840.1.664848.3.57[id number] 2.16.840.1.454730.3.57[id number] 2.16.840.1.241373.3.57[id number] 2.16.840.1.972837.3.57[id number] 2.16.840.1.541266.3.57[id number] 2.16.840.1.121852.3.57[id number] 2.16.840.1.853472.3.57[id number] 2.16.840.1.344331.3.579.2.1244Self-pay Social History DateTypeDetailFacilityStart: 09-02-2023 End: 25-23-8405Xtzup a smokerNever a fyybqdKD-Lyfqfvyqvzfsli-Reixkmrl Work Phone: Start: 09-02-2023 End: 58-95-9149Tqj Assigned At [facility] Runner Other Tobacco smoking status NHISTobacco smoking consumption unknownUnCleveland Clinic Children's Hospital for Rehabilitation Work Phone: Start: 97-20-8666Fjg Assigned At BirthNot on file [facility] Work Phone: Start: 71-66-6010Jzjdevd smoking status NHISNever smoked tobaccoUnCleveland Clinic Children's Hospital for Rehabilitation Work Phone: Start: 24-64-2582Zgykvlq use and exposureSmokeless tobacco non-userUnCleveland Clinic Children's Hospital for Rehabilitation Work Phone: Start: 08-23-2023 End: 80-78-5567Qxtzyuyf to SARS-CoV-2 (event)Not sureUnCleveland Clinic Children's Hospital for RehabilitationStart: 53-76-6793Zmv [facility] At [facility] 08-29-2022 End: 73-64-7555HayGbnp (finding)[facility] Administrationtart: 96-13-0436Iqzoxekbj beverage intakeLifetime non-drinker (finding)[facility] Work Phone: Functional Status VozdByxexquzxtKqmywrMdsbhzaf68-56-6649Dnceoru Health Questionnaire 2 item (PHQ- 2) [Reported][facility] Work Phone: Clinical Notes 09-04-2020 to 07-12-2025 Note Date & BgkkZlmmLupkwgtm58-55-7700 History of Present illness Narrative* Dominick Barbosa [...] has a past medical history of Asthma ([facility]) (2004), Obesity (2018), Other seasonal allergic rhinitis, [...] (Please see procedure below.) SINONASAL ENDOSCOPY (CPT 23791): To better evaluate the patient's symptoms, sinonasal [...] 0 documented in this [facility] Work Phone: 1(148) 974-786508-01-2025 Evaluation note* Diagnosis Onset Date Resolution Status Admit Date Hypertension acuteAugust 2024 2:56pmIFG (impaired fasting glucose)acuteAugust 2024 2:56pmLow back painacuteAugust 2024 2:56pmObesityacuteAugust 2024 2:56pmWellness examinationacuteAugust 2024 2:56pm [facility] Work Phone: [phone] 361-563805-12-2025 History of Present illness Narrative* Dominick Barbosa [...] 3 documented in this [facility] Work Phone: [phone]) 779-194704-14-2025 Evaluation note* Diagnosis Onset Date Resolution Status Admit Date Hypertension acuteApril 2024 3:19pmIFG (impaired fasting glucose)acuteApril 2024 3:19pmLow back painacuteApril 2024 3:19pmObesityacuteApril 2024 3:19pm [facility] Work Phone: [phone]) 123-523804-09-2025 History of Present illness Narrative* Dominick Barbosa [...] procedure below.) SINONASAL ENDOSCOPY WITH BIOPSY (CPT 37536-V): Due to the patient's nasal cavity / [...] MD documented in this [facility] Work Phone: 1(606) 944-387310-09-2024 History of Present illness Narrative* Dominick Barbosa [...] procedure below.) SINONASAL ENDOSCOPY WITH BIOPSY (CPT 69966-L): Due to the patient's nasal cavity / [...] MD documented in this [facility] Work Phone: 1(754) 768-680606-05-2024 History of Present illness Narrative* Dominick Barbosa [...] (Please see procedure below.) SINONASAL ENDOSCOPY (CPT 62704): To better evaluate the patient's symptoms, sinonasal [...] of Agustina Barbosa MD. [facility] encounterPe[facility] Work Phone: 1(306) 381-106001-02-2024 Evaluation note* Encounter Date Diagnosis Assessment Notes [...] index [BMI] 50.0-59.9, adult (ICD-10 - Z68.43) [employer] Other 11-29-2023 History of Present illness [...] (Please see procedure below.) SINONASAL ENDOSCOPY (CPT 74667): To better evaluate the patient's symptoms, sinonasal [...] free to contact my office by calling [phone] with any questions. Signature: Scribe Attestation By signing my name below, I, Reina Irvin , Tana attest that this documentation has been prepared under the direction and in the presence of Agustina Barbosa MD. documented in this [facility] Work Phone: 1(209) 136-131008-11-2023 NotePost Operative Note: PreOp Diagnosis: Right sinonasal inverted papilloma, chronic sinusitis Post-Procedure Diagnosis: Same Procedure: 1. Right nasal endoscopy with total ethmoidectomy including sphenoidotomy with tissue removal CPT 58207-K-38 2. Right nasal endoscopy with frontal sinusotomy CPT 16067-H 3. Right maxillary endoscopy with tissue removal 72282-K 4. Extracranial CT image guidance CPT 63740 Surgeon: Familia Resident/Fellow/Other Ob/Gyn: None Anesthesia: GET Estimated Blood Loss (mL): [...] middle turbinate was resected (more content not included)...[facility] 05-15-2023 Miscellaneous Notes* Op Note - Dominick Barbosa MD - 05/15/2023 4:37 PM EDT Post Operative Note: PreOp Diagnosis: Right sinonasal inverted papilloma, chronic sinusitis Post-Procedure Diagnosis: Same Procedure: 1. Right nasal endoscopy with total ethmoidectomy including sphenoidotomy with tissue removal CPT 60800-H-42 2. Right nasal endoscopy with frontal sinusotomy CPT 98463-M 3. Right maxillary endoscopy with tissue removal 68889-O 4. Extracranial CT image guidance CPT 73489 Surgeon: Familia Resident/Fellow/Other Ob/Gyn: None Anesthesia: GET Estimated Blood Loss (mL): [...] Barbosa) documented in this [facility] Work Phone: [phone]) 232-454208-11-2023 Note* Op Note - Dominick Barbosa MD - 05/15/2023 4:37 PM EDT Post Operative Note: PreOp Diagnosis: Right sinonasal inverted papilloma, chronic sinusitis Post-Procedure Diagnosis: Same Procedure: 1. Right nasal endoscopy with total ethmoidectomy including sphenoidotomy with tissue removal CPT 16777-W-27 2. Right nasal endoscopy with frontal sinusotomy CPT 60012-A 3. Right maxillary endoscopy with tissue removal 57791-J 4. Extracranial CT image guidance CPT 49579 Surgeon: Familia Resident/Fellow/Other Ob/Gyn: None Anesthesia: GET Estimated Blood Loss (mL): [...] Last Updated: 15-May-2023 17:00 by Dominick Barbosa) [facility] Work Phone: 1(156) 446-998108-11-2023 History of Present illness Narrative* Wale presents for his first postoperative visit following right-sided sinus surgery in 05/15/23. * Following his surgery he has done well. He has been having some headaches that are controlled with Tylenol. His breathing has been significantly improved. He is rinsing several times per day. He denies significant nasal drainage. DF-Axpvjcoizlozlq-WssdygiUnimed Medical Center 4314 Work Phone: 1(578) 585-874708-11-2023 NoteHistory of Present Illness: History Present Illness: [...] Completion Last Updated: 15-May-2023 11:51 by Dominick Barbosa)[facility]08-11-2023 History and physical note* Dominick [...] Last Updated: 15-May-2023 11:51 by Dominick Barbosa) [facility] Work Phone: [phone] History and physical note* Dominick Barbosa MD [...] 11:51 by Dominick Barbosa) [facility] in [facility] encounterPe[facility] Work Phone: [phone] 561-451804-05-2023 Evaluation note* Encounter Date Diagnosis Assessment Notes Treatment Notes Treatment Clinical Notes Jan, Inverted papilloma of nasal cavi ty (ICD-10 - D14.0) [employer] Other 04-04-2023 Chief complaint Narrative - [...] 5. Obstructive sleep apnea on positive pressure HC-Ixsqjpbtvjfjiu-KceuafqUnimed Medical Center 4100 Work Phone: [phone] 282-874504-04-2023 History of Present illness Narrative* Reason for visit: * WALE GREY patient presents since last being seen 01/06/23. * Wale presents for routine follow-up. He is interested in going forward with his inverted papillomaresection and would like to schedule it as soon as there is availability. [place]-Duomvyxdoypxox-Dzmoqokq Work Phone: [phone] History of Present illness Narrative* Reason for visit: * WALE GREY patient presents since last being seen 01/06/23. * Wale presents for routine follow-up. 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 UT-Ifpnxnzmpkwhiq-UtfckaeAurora Hospital 4100 Work Phone: [phone] Evaluation note* Encounter Date Diagnosis Assessment Notes [...] NS for congestion, Tylenol forpain and fever. [employer] Other 12-01-2020 History of Present illness [...] and is using flonase only as needed. MK-Ikvnokpsbjdgma-Tuzddqpz Work Phone: [phone] 586-259712-01-2020 History of Present illness Narrative* Reason for [...] well outside of some nasal breathing issues. QR-Xcurnunxystqre-VbfqrxrAurora Hospital 3717 Work Phone: Evaluation note* Diagnosis Chronic ethmoidal sinusitis Benign neoplasm of middle ear, nasal cavity and accessory sinuses Benign neoplasm of nasal cavities, middle ear, and accessory sinuses Chronic sinusitis, unspecified documented in this encounter [facility] Work Phone: [phone] note* Diagnosis Chronic ethmoidal sinusitis- Primary Other chronic sinusitis Chronic sphenoidal sinusitis documented in this encounter [facility] Work Phone: [phone] note* Diagnosis Chronic ethmoidal sinusitis- Primary Chronic maxillary sinusitis documented in this encounter [facility] Work Phone: [phone] note* Diagnosis Onset Date Resolution Status Bulging lumbar disc acuteElevated BP without diagnosis of hypertensionacuteLow back painacuteObesity acuteWellness examinationacute [facility] Work Phone: Evaluation note* Diagnosis Post-nasal drainage- Primary Other diseases of nasal cavity and sinuses Chronic maxillary sinusitis Nasal congestion Other diseases of nasal cavity and sinuses documented in this encounter [facility] Work Phone: [phone] note* Diagnosis Onset Date Resolution Status Bulging lumbar disc acuteElevated BP without diagnosis of hypertensionacuteLow back painacuteObesity acuteWellness examinationacuteIFG (impaired fasting glucose)acuteAcute sinusitis noneactive [facility] Work Phone: Evaluation note* Diagnosis 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, middle ear, and accessory sinuses Chronic sphenoidal sinusitis Chronic maxillary sinusitis documented in this encounter [facility] Work Phone: [phone] note* Diagnosis 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, middle ear, and accessory sinuses Chronic sphenoidal sinusitis documented in this encounter [facility] Work Phone: [phone] note* Diagnosis Chronic sphenoidal sinusitis- Primary Nasal congestion Other diseases of nasal cavity and sinuses documented in this encounter [facility] Work Phone: History general Narrative - Reported* Type Description Date Medical History Intermittent asthma Medical HistoryPolyp of right nasal cavityMedical HistoryLumbar back pain with radiculopathy affecting left lower extremityMedical HistoryMorbid obesityMedical HistoryAcute bilateral low back pain with left-sided sciaticaMedical History Acute seasonal allergic rhinitis due to pollenSurgical HistoryTotal endoscopic mhgsqhbkukrxn23/21/2019Hospitalization Historysee surgical history [employer] Other History of Present illness Narrative* [...] 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 XX-Drvtwdcifayxtp-FayqmxlUnimed Medical Center 4100 Work Phone: Reason for referral (narrative)No reason for referral information availableSt. Charles Hospital Work Phone: Summary Purpose Family History [...] Complaint and Reason for Visit Chief Complaint [facility] Reason for Visit Bulging lumbar disc Elevated BP without diagnosis of hypertension Low back pain Obesity Wellness examination Chief Complaint [facility] [phone] sinus infectionReason for VisitBulging lumbar disc Elevated [...] section and content) DATE CREATED AUTHOR 03/06/2020 [facility] DATE CREATED AUTHOR AUTHOR'S ORGANIZ ATION 11/24/2022 [facility] DATE CREATED AUTHOR AUTHOR'S ORGANIZ ATION 05/28/2023 [facility] DATE CREATED AUTHOR AUTHOR'S ORGANIZ ATION 06/05/2023 [facility] DATE CREATED AUTHOR AUTHOR'S ORGANIZ ATION 07/15/2025 [facility] DATE CREATED AUTHOR AUTHOR'S ORGANIZ ATION 07/21/2025 [facility] REASON FOR VISIT (unrecogniz ed section and content) ReasonCommentsOtherRight endoscopic sinus surgery with image guidance, right endoscopic medial maxillectomy, septoplastyReasonCommentsFollow-up Care Teams (unrecognized sec tion and content) Team MemberRelationshipSpecialtyStart DateEnd Date Enzo Vasques DO PCP - Djznkuk53/18/19Team MemberRelationshipSpecialtyStart DateEnd Date Enzo Vasques DO PCP - Syfropt55/18/19Team MemberRelationshipSpecialtyStart DateEnd Date Enzo Vasques DO PCP [facility]09/21/19 Cristiana Triplett APRN-COUNTER TENDER [address] [place] [address] PCP [facility]09/04/23 Team Status: Active Member Role Status Dates Enzo Vasques DO Primary Care Provider Active Team Status: Inactive Member Role Status Dates Enzo Vasques DO Primary Care Provide r, Attending Provider Active Start: June 03, 2024 End: June 03, 2024Team MemberRelationshipSpecialtyStart DateEnd Date Enzo Vasques DO [facility]09/21/19 Team Status: Active Member Role Status [...] 2025Team MemberRelationshipSpecialtyStart DateEnd Date Enzo Vasques DO [facility]09/21/19 Team Status: Inactive Member Role Status Greg Vasques DO Primary Care Provider Active Start: May 23, 2025 End: May 23anastasiya Vasques DOAttgilmer ProviderActiveStart: May 23, 2025 End: May 23, 2025Team MemberRelationshipSpecialtyStart DateEnd Date Enzo Vasques DO [facility]09/21/19 Goals (unrecognized section and content) Goals [...] BE BASED ON THE PRIMARY CLINICAL RECORDS. [facility] [employer], [facility]. provides no warranty or guarantee of the accuracy or completeness of information in this document.
--- NOTE | 2025-09-12 15:35 | CT_ITS ---
The [address] [address] Patient Name: HAKAN [place] MRN: [id number] date: 2000 Sex: M Assigned Patient Location: CT Current Patient Location: CT Accession/Order Number: [id number] Exam Date: 09/12/2025 15:30 Report Date: 09/12/2025 16:46 At the request of: SHREE DAVIS APRN Procedure: CT lumbar spine wo con CT lumbar spine wo con 09/12/2025 3:35 PM History:Chronic low back pain with radiculopathy TECHNIQUE: Multi detector CT axial slices of the lumbar spine were obtained without IV contrast. Volumetric acquisition sagittal, coronal, and 3-D reconstructions were performed and reviewed on a separate workstation. CT was performed with one or more of the following dose reduction techniques: Automated exposure control, adjustment of the mA and/or kV according to patient size, or use of iterative reconstruction technique. COMPARISON: 03/31/2025 FINDINGS: There is preservation of the vertebral body heights. Disc protrusions are noted at L3-L4 and L4-5 similar to the previous MRI contributing to spinal canal stenosis. No fractures or dislocations are seen. . Bilateral L5 pars defects are present with grade 1 spondylolisthesis of L5 upon S1 measuring 4 mm. There is accompanying facet hypertrophy. Bilateral neural foraminal narrowing is noted, better demonstrated on the previous MRI. There is a slight levoconvex curvature of the lumbar spine. There is a right central disc protrusion with endplate osteophyte formation at T12-L1 contributing to spinal canal stenosis and right-sided neural foraminal narrowing similar to the prior exam. The alignment of the lumbar spine is normal, otherwise. The paraspinous soft tissues are within normal limits. The visualized lung parenchyma is unremarkable. The visualized abdominal and pelvic viscera is unremarkable. CT/CT lumbar spine wo con IMPRESSION: No acute bony abnormality. Bilateral L5 pars defects are present with grade 1 spondylolisthesis of L5 upon S1 measuring 4 mm. There is a slight levoconvex curvature of the lumbar spine. Similar disc, facet, and endplate degenerative changes are noted as demonstrated on the previous MRI. Impression dictated by: Kojo Ibarra M.D. 09/12/2025 4:46 PM Dictation Location: [place] [address] Electronically authenticated by: [id number] Y Date: 09/12/2025 16:46
== END 2025-09-12 15:22 | disposition home or self-care (01) ==
PROVIDERS: Family Provider Internal Medicine; PCP Nurse Practitioner Family; Visit Provider Nurse Practitioner Family
DX: M54.16 Radiculopathy, lumbar region (principal); M48.062 Spinal stenosis, lumbar region with neurogenic claudication; M51.369 Other intervertebral disc degeneration, lumbar region without mention of lumbar back pain or lower extremity pain
CPT/HCPCS: 72131; 76376